=== PATIENT | male | born 1960 | race Caucasian/White ===

== ENCOUNTER 2020-01-31 08:17 | Inpatient (IN) | payer MEDICARE ==
[2020-01-31] MEDS ORDERED: ONDANSETRON 4 MG/2 ML VIAL IVP STA (08:49)
[2020-01-31] MEDS ORDERED: MORPHINE SULFATE 4 MG/ML SYRINGE IV STA (08:49)
[2020-01-31] MEDS ORDERED: SODIUM CHLORIDE 0.9% 500 ML 500 ML IV STA (08:49)
--- NOTE | 2020-01-31 08:55 | ED ---
Abdominal Pain HPI - General Chief Complaint: Abdominal Pain Stated Complaint: Abd pain Time Seen by Provider: 01/31/20 08:25 Source: patient, RN notes reviewed Mode of arrival: wheelchair Limitations: no limitations - History of Present Illness Initial Comments: This a 59-year-old male presents emergency Department with chief complaint of abdominal pain. Patient states has been going on for almost a week. Patient states he has diarrhea. Close of the day which is mostly watery denies any melena or hematochezia. Patient states isn't appears chills she complains of lower abdominal pain. He does admit that he is history of diabetes in which she has chronic renal failure though not on dialysis yet. Patient states that he drinks ensure daily because he does not have that appetite. Patient has had his appetite, weight loss complains evaluated. Patient denies any chest pain or shortness of breath. Patient denies any fevers or chills. Patient had slight nausea no vomiting - Related Data Home Medications Medication Instructions Recorded Confirmed Aspirin EC [Ecotrin Low Dose] 81 mg PO DAILY 01/31/20 01/31/20 Insulin Aspart (For Pump) [NovoLOG 0.01 unit SQ-PUMP CONTINUOUS 01/31/20 01/31/20 (For Pump)] Rosuvastatin [Crestor] 10 mg PO DAILY 01/31/20 01/31/20 Allergies Allergy/AdvReac Type Severity Reaction Status Date / Time No Known Allergies Allergy Verified 01/31/20 10:33 Review of Systems ROS Statement: Those systems with pertinent positive or pertinent negative responses have been documented in the HPI. ROS Other: All systems not noted in ROS Statement are negative. Past Medical History Past Medical History: Coronary Artery Disease (CAD), Diabetes Mellitus Additional Past Medical History / Comment(s): insulin pump stage 4 kidney disease, chronic right foot ulcer History of Any Multi-Drug Resistant Organisms: MRSA Date of last positivie culture/infection: 2014 MDRO Source:: right foot Past Surgical History: Heart Catheterization With Stent Additional Past Surgical History / Comment(s): left 2nd and third toe amputation Past Psychological History: No Psychological Hx Reported Smoking Status: Current every day smoker Past Alcohol Use History: Occasional Past Drug Use History: None Reported General Exam Limitations: no limitations General appearance: alert, in no apparent distress Head exam: Present: atraumatic, normocephalic, normal inspection Eye exam: Present: normal appearance, PERRL, EOMI. Absent: scleral icterus, conjunctival injection, periorbital swelling ENT exam: Present: normal exam, normal oropharynx, mucous membranes moist Neck exam: Present: normal inspection, full ROM. Absent: tenderness, meningismus, lymphadenopathy Respiratory exam: Present: normal lung sounds bilaterally. Absent: respiratory distress, wheezes, rales, rhonchi, stridor Cardiovascular Exam: Present: normal rhythm, tachycardia, normal heart sounds. Absent: systolic murmur, diastolic murmur, rubs, gallop, clicks GI/Abdominal exam: Present: soft, tenderness (Moderate lower), normal bowel sounds. Absent: distended, guarding, rebound, rigid Back exam: Absent: CVA tenderness (R), CVA tenderness (L) Neurological exam: Present: alert, oriented X3 Skin exam: Present: warm, dry, intact, normal color. Absent: rash Course Vital Signs 01/31/20 01/31/20 01/31/20 08:19 09:19 09:47 Temperature 98 F 97.2 F L Pulse Rate 101 H 92 62 Respiratory 18 14 22 Rate Blood Pressure 148/79 164/88 167/95 O2 Sat by Pulse 100 100 Oximetry 01/31/20 10:01 Temperature Pulse Rate 91 Respiratory 16 Rate Blood Pressure 165/85 O2 Sat by Pulse Oximetry Medical Decision Making - Medical Decision Making Case discussed with Dr. Paniagua in which patient be admitted for colitis, diverticulitis persistent diarrhea. Patient has chronic kidney disease, ([address] Patient started on antibiotics. IV fluid hydration. - Lab Data Result diagrams: 01/31/20 08:50 01/31/20 08:50 Lab Results 01/31/20 01/31/20 01/31/20 Range/Units 08:50 08:50 08:50 WBC 8.1 (3.8-10.6) k/uL RBC 3.24 L (4.30-5.90) m/uL Hgb 9.8 L (13.0-17.5) gm/dL Hct 30.9 L (39.0-53.0) % MCV 95.4 (80.0-100.0) fL MCH 30.2 (25.0-35.0) pg MCHC 31.6 (31.0-37.0) g/dL RDW 15.2 (11.5-15.5) % Plt Count 267 (150-450) k/uL Neutrophils % 76 % Lymphocytes % 16 % Monocytes % 4 % Eosinophils % 3 % Basophils % 0 % Neutrophils # 6.1 (1.3-7.7) k/uL Lymphocytes # 1.3 (1.0-4.8) k/uL Monocytes # 0.4 (0-1.0) k/uL Eosinophils # 0.2 (0-0.7) k/uL Basophils # 0.0 (0-0.2) k/uL PT 9.6 (9.0-12.0) sec INR 0.9 (<1.2) APTT 26.4 (22.0-30.0) sec Sodium 133 L (137-145) mmol/L Potassium 5.1 (3.5-5.1) mmol/L Chloride 107 (98-107) mmol/L Carbon Dioxide 20 L (22-30) mmol/L Anion Gap 6 mmol/L BUN 59 H (9-20) mg/dL Creatinine 2.13 H (0.66-1.25) mg/dL Est GFR (CKD-EPI)AfAm 38 (>60 ml/min/1.73 sqM) Est GFR (CKD-EPI)NonAf 33 (>60 ml/min/1.73 sqM) Glucose 196 H (74-99) mg/dL Plasma Lactic Acid Karlo (0.7-2.0) mmol/L Calcium 9.1 (8.4-10.2) mg/dL Total Bilirubin 0.5 (0.2-1.3) mg/dL AST 36 (17-59) U/L ALT 20 (4-49) U/L Alkaline Phosphatase 84 (38-126) U/L Total Protein 7.5 (6.3-8.2) g/dL Albumin 4.2 (3.5-5.0) g/dL Amylase 85 (30-110) U/L Lipase 74 (23-300) U/L 01/31/20 Range/Units 08:50 WBC (3.8-10.6) k/uL RBC (4.30-5.90) m/uL Hgb (13.0-17.5) gm/dL Hct (39.0-53.0) % MCV (80.0-100.0) fL MCH (25.0-35.0) pg MCHC (31.0-37.0) g/dL RDW (11.5-15.5) % Plt Count (150-450) k/uL Neutrophils % % Lymphocytes % % Monocytes % % Eosinophils % % Basophils % % Neutrophils # (1.3-7.7) k/uL Lymphocytes # (1.0-4.8) k/uL Monocytes # (0-1.0) k/uL Eosinophils # (0-0.7) k/uL Basophils # (0-0.2) k/uL PT (9.0-12.0) sec INR (<1.2) APTT (22.0-30.0) sec Sodium (137-145) mmol/L Potassium (3.5-5.1) mmol/L Chloride (98-107) mmol/L Carbon Dioxide (22-30) mmol/L Anion Gap mmol/L BUN (9-20) mg/dL Creatinine (0.66-1.25) mg/dL Est GFR (CKD-EPI)AfAm (>60 ml/min/1.73 sqM) Est GFR (CKD-EPI)NonAf (>60 ml/min/1.73 sqM) Glucose (74-99) mg/dL Plasma Lactic Acid Karlo 1.3 (0.7-2.0) mmol/L Calcium (8.4-10.2) mg/dL Total Bilirubin (0.2-1.3) mg/dL AST (17-59) U/L ALT (4-49) U/L Alkaline Phosphatase (38-126) U/L Total Protein (6.3-8.2) g/dL Albumin (3.5-5.0) g/dL Amylase (30-110) U/L Lipase (23-300) U/L Disposition Clinical Impression: Diverticulitis, Colitis, Diarrhea Disposition: ADMITTED IP TO THIS [facility] Condition: Fair Referrals: Mayo Martell MD [STAFF PHYSICIAN] - 1-2 days
[2020-01-31 09:04] LABS: Basophils % (A) 0 %; Eosinophils # (A) 0.2 k/uL (0-0.7); Eosinophils % (A) 3 %; HCT 30.9 % (39.0-53.0); HGB 9.8 gm/dL (13.0-17.5); Lymphocytes # (A) 1.3 k/uL (1.0-4.8); Lymphocytes % (A) 16 %; MCH 30.2 pg (25.0-35.0); MCHC 31.6 g/dL (31.0-37.0); MCV 95.4 fL (80.0-100.0); Mean Platelet Volume 8.1; Monocytes # (A) 0.4 k/uL (0-1.0); Monocytes % (A) 4 %; Neutrophils # (A) 6.1 k/uL (1.3-7.7); Neutrophils % (A) 76 %; Platelet Count 267 k/uL (150-450); RBC 3.24 m/uL (4.30-5.90); RDW 15.2 % (11.5-15.5); WBC 8.1 k/uL (3.8-10.6)
[2020-01-31 09:13] LABS: INR 0.9 (<1.2); Partial Thromboplastin Time 26.4 sec (22.0-30.0); Prothrombin Time 9.6 sec (9.0-12.0)
[2020-01-31 09:17] LABS: Albumin 4.2 g/dL (3.5-5.0); Calcium 9.1 mg/dL (8.4-10.2); Total Bilirubin 0.5 mg/dL (0.2-1.3); Total Protein 7.5 g/dL (6.3-8.2)
[2020-01-31 09:25] LABS: Potassium 5.1 mmol/L (3.5-5.1)
--- NOTE | 2020-01-31 09:44 | CT ---
EXAMINATION TYPE: CT abdomen pelvis wo con DATE OF EXAM: 01/31/2020 COMPARISON: None HISTORY: 59-year-old male abdominal pain, Prachi-umbilical pain CT DLP: 373.4 mGycm. Automated exposure control for dose reduction was used. TECHNIQUE: Contiguous axial scanning of the abdomen and pelvis without IV contrast. Coronal and sagit deborah reconstructions performed. FINDINGS: Heart normal size with trace anterior pericardial fluid. Three-vessel coronary artery calcifications are present. Findings interstitial changes along the subpleural regions of the posterior lung bases. No pleural ef fusion. Small hiatal hernia suggested. Noncontrast appearance of the liver, gallbladder, right adrenal gland, kidneys, spleen, and pancreas show no gross abnormal body. Limited assessment due to lack of IV contrast and limited intra-abdomina l fat. Mild diffuse thickening of the left adrenal gland without discrete nodularity. This seems to be some mesenteric and omental haziness. Moderate circumferential wall thickening sigmo id colon and rectum. There is some diverticular change in this region. Oral contrast may be extending into some of the diverticula here. High rupture at the splenic flecture, axial image 21, there may be some circumferential annular narro wing. No definite free fluid or free air seen. Mild circumferential bladder wall thickening. Prostate gland enlargement 5.1 cm wide. Bones: Degenerative changes of the hips. L1 vertebroplasty change. Disc bulges mid and lower lumbar spine. IMPRESSION: 1. Moderate nonspecific colitis involving the sigmoid colon and rectum. There is some diverticular c hange air as well. Acute diverticulitis is also a consideration. Close clinical follow-up recommended with repeat CT with oral and IV contrast if no improvement. 2. An area of annular thickening and narrowing higher up along the splenic flexure could relate to f ocal peristalsis. After successful treatment, direct visualization recommended to exclude any sites o f underlying neoplasm. 3. No definite free air or free fluid seen.
[2020-01-31] MEDS ORDERED: HYDROmorphone 0.5 MG/0.5 ML SYRINGE IVP STA (09:49)
[2020-01-31] MEDS ORDERED: diphenhydrAMINE 50 MG/ML 1 ML VIAL IVP STA (09:49)
[2020-01-31] MEDS ORDERED: METOCLOPRAMIDE 5 MG/ML 2 ML VIAL IVP STA (09:49)
[2020-01-31] MEDS: SODIUM CHLORIDE 0.9% 1,000 ML IV SCH ×2 (10:10→23:50)
[2020-01-31] MEDS ORDERED: metroNIDAZOLE-NS PMX 500 MG in SALINE 1 100ML.BAG IVPB STA (11:05)
[2020-01-31] MEDS ORDERED: LEVOFLOXACIN 750MG-D5W PMX 750 MG in DEXTROSE/WATER 1 150ML.BAG IVPB STA (11:05)
[2020-01-31] MEDS ORDERED: HYDROcodone/APAP 5-325MG 1 EACH TAB PO PRN (11:06)
[2020-01-31] MEDS ORDERED: HYDROmorphone 0.5 MG/0.5 ML SYRINGE IVP PRN (11:06)
[2020-01-31] MEDS ORDERED: NALOXONE 0.4 MG/ML 1 ML VIAL IV PRN (11:06)
[2020-01-31 12:25] LABS: Appearance,Urine Clear (Clear); Bacteria,Urine Rare /hpf; Bilirubin,Urine Negative (Negative); Blood,Urine Negative (Negative); Color,Urine Light Yellow; Glucose,Urine (UA) Trace (Negative); Hyaline Casts,Urine 1 /lpf (0-2); Ketones,Urine Negative (Negative); Leukocyte Esterase,Urine Negative (Negative); Nitrite,Urine Negative (Negative); PH, Urine 5.5 (5.0-8.0); Protein,Urine 1+ (Negative); RBC,Urine <1 /hpf (0-5); Sperm,Urine Rare /hpf; Urobilinogen,Urine <2.0 mg/dL (<2.0); WBC,Urine 1 /hpf (0-5)
[2020-01-31] MEDS ORDERED: PNEUMOCOCCAL VACC-PNEUMOVAX 23 25 MCG/0.5 ML VIAL IM ONE (12:37)
[2020-01-31] MEDS ORDERED: DICYCLOMINE 10 MG CAP PO PRN (14:15)
[2020-01-31] MEDS ORDERED: ONDANSETRON 4 MG/2 ML VIAL IVP PRN (14:17)
[2020-01-31] MEDS ORDERED: Insulin Aspart (For Pump) 100 UNIT/ML VIAL SQ-PUMP SCH (20:15)
[2020-01-31] MEDS: metroNIDAZOLE-NS PMX 500 MG in SALINE 1 100ML.BAG IVPB SCH (20:23)
[2020-01-31] MEDS: PANTOPRAZOLE 40 MG/10 ML VIAL IVP SCH (20:24)
[2020-01-31] MEDS ORDERED: INSULIN PUMP BASAL RATES 1 EACH MISC MISCELLANE PRN (20:28)
[2020-01-31] MEDS ORDERED: INSPUCOR MISCELLANE PRN (20:28)
[2020-01-31] MEDS ORDERED: INSULIN ASPART (NovoLOG) 100 UNIT/ML VIAL SQ PRN (20:28)
[2020-01-31] MEDS: INSULIN PUMP MEAL BOLUS 1 UNIT MISC MISCELLANE SCH (21:03)
--- NOTE | 2020-01-31 22:44 | P.HPIM ---
History of Present Illness H&P Date: 01/31/20 Chief Complaint: Abdominal pain, colitis, bowel obstruction, acute kidney injury with chroni 59-year-old male one of Dr. Mena patient with past medical history of coronary disease, diabetes, hypertension hyperlipidemia and chronic kidney disease who developed to have worsening abdominal discomfort and pain mostly left lower quadrant with mid lower abdominal region area along with left upper quadrant pain and discomfort on and off associated with episode of diarrhea with no acute bleed at the time. Low-grade temperature nausea without vomiting. Symptoms become much worse in the last 48 hours ended up coming to the emergency department at [facility] where was seen and evaluated surprisingly his kidney function came back slightly bit down compared to his baseline, patient computed tomography scan showed some evidence of irregularity in the mucosal of the colon along with slight abnormality consistent with possible obstruction in the splenic flexure of the colon area. Picture was quite bit abnormal patient was very tender on it at the time. Also had a picture of diverticulitis beside the active colitis which could be ischemic in origin more than inflammatory colitis. Patient was started on IV hydration and Flagyl and Levaquin was giving and will admit patient to the hospital. His white blood cell was normal but significantly low hemoglobin at the time. Urine test was negative blood culture and urine culture was still pending. Review of Systems CONSTITUTIONAL: Well-developed no acute respiratory distress. EYES: No icterus sclerae, no conjunctivitis. EARS, NOSE, MOUTH, THROAT, and FACE: No sore throat, lymphadenopathy, carotid bruits or deformity. RESPIRATORY: No SOB cough or wheezes. CARDIOVASCULAR: No CP, Palpitation, PND, Orthopnea, or angina. GASTROINTESTINAL: Positive abdominal pain with diarrhea and nausea with no vomiting significant discomfort with no hemorrhage or bleed. Bleed, no distention or masses. GENITOURINARY: No kidney stone slight decrease in kidney function. INTEGUMENT/BREAST: Negative for any muscular injury with mild osteoarthritis.. HEMATOLOGIC/LYMPHATIC: Negative for bleed or purpura. MUSCULOSKELTAL: Negative for Myalgia or arthralgia. NEURLOGICAL: No LOC, Sz or syncope, blurred vision dizziness or abnormality.. BEHAVIORAL/PSYCH: Negative. ENDOCRINE: Negative. 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 He is and lives alone. Family history: His father a 70 from aneurysm of the brain, mother at age 77 from aneurysm of the brain. Patient had 6 siblings with no major problem 2 children 1 from complication of type 2 diabetes with advanced disease. Past Medical History Past Medical History: Coronary Artery Disease (CAD), Diabetes Mellitus, Eye Disorder, Hyperlipidemia, Renal Disease Additional Past Medical History / Comment(s): IDDM type I with insulin pump, CKD stage IV, polyneuropathy, dupuytren's bilateral hands, chronic R foot ulcer, ch ronic bilateral foot pain, chronic low back pain/fracture, R eye cataract History of Any Multi-Drug Resistant Organisms: MRSA Date of last positivie culture/infection: 2014 MDRO Source:: right foot Past Surgical History: Heart Catheterization With Stent, Orthopedic Surgery Additional Past Surgical History / Comment(s): L hand fracture with pins, left 2nd and third toe amputation, colonoscopy, L cataract removal/lens implants Past Anesthesia/Blood Transfusion Reactions: No Reported Reaction Date of Last Stent Placement:: 2014 Past Psychological History: No Psychological Hx Reported Additional Psychological History / Comment(s): Pt resides alone in an apartment. He moved here from [place] last May 2019. 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 He uses no assistive device. He drives. Smoking Status: Current every day smoker Past Alcohol Use History: Occasional Additional Past Alcohol Use History / Comment(s): Pt started smoking in 1975 and is a ppd smoker. Past Drug Use History: None Reported - Past Family History Father Family Medical History: Diabetes Mellitus, Vascular Disorder Additional Family Medical History / Comment(s): Father of brain aneurysm. He had type I diabetes and it ran strongly on father's side of family Mother Family Medical History: Vascular Disorder Additional Family Medical History / Comment(s): Mother from a brain aneurysm. Medications and Allergies Home Medications Medication Instructions Recorded Confirmed Type Aspirin EC [Ecotrin Low Dose] 81 mg PO DAILY 01/31/20 01/31/20 History Insulin Aspart (For Pump) [NovoLOG 0.01 unit SQ-PUMP CONTINUOUS 01/31/20 01/31/20 History (For Pump)] Rosuvastatin [Crestor] 10 mg PO DAILY 01/31/20 01/31/20 History Allergies Allergy/AdvReac Type Severity Reaction Status Date / Time No Known Allergies Allergy Verified 01/31/20 10:33 Physical Exam Vitals: Vital Signs Temp Pulse Pulse Resp BP BP Pulse Ox 01/31/20 19:19 98.5 F 81 15 152/80 100 01/31/20 16:00 85 16 01/31/20 14:30 98.1 F 85 16 146/77 100 01/31/20 11:25 97.8 F 88 16 162/89 01/31/20 10:01 91 16 165/85 01/31/20 09:47 97.2 F L 62 22 167/95 01/31/20 09:19 92 14 164/88 100 01/31/20 08:19 98 F 101 H 18 148/79 100 Intake and Output 01/31/20 01/31/20 01/31/20 06:59 14:59 22:59 Other: Voiding Method Toilet # Voids 1 1 # Bowel Movements 1 1 Weight 56.699 kg General Appearance: Alert, cooperative, no distress, appears stated age. Neck HEENT: Supple, no lymphadenopathy, no thyroid enlargement, no carotid bruits. Lungs: Clear to auscultation without crackles or wheezes no rhonchi, no deformity. Chest Wall: Decrease expansion with deep inspiration no tenderness and no deformity was found on exam, no costochondral pain or discomfort. Heart: Regular rate and rhythm, S1, S2 normal, no murmur, rub or gallop. Back: Symmetric, no curvature, ROM normal, no CVA tenderness. Abdomen: Soft positive bowel sounds significant tenderness in the left upper quadrant and left lower quadrant area with midabdominal region tenderness with no rebound or rigidity not been able to feel mass and patient does not have any sign of ascites. Extremities: Extremities normal, atraumatic, no cyanosis or edema. Right foot lateral aspect has small chronic ulcerated area on callus. Pulses: 2+ and symmetric. Skin: Skin color, texture, tugor normal, no rashes or lesions. Neurologic: Alert oriented x3 cranial nerves II through XII intact, no motor deficit, no abnormal balance or gait. Results CBC & Chem 7: 01/31/20 08:50 01/31/20 08:50 Labs: Abnormal Lab Results - Last 24 Hours (Table) 01/31/20 01/31/20 01/31/20 Range/Units 08:50 08:50 12:00 RBC 3.24 L (4.30-5.90) m/uL Hgb 9.8 L (13.0-17.5) gm/dL Hct 30.9 L (39.0-53.0) % Sodium 133 L (137-145) mmol/L Carbon Dioxide 20 L (22-30) mmol/L BUN 59 H (9-20) mg/dL Creatinine 2.13 H (0.66-1.25) mg/dL Glucose 196 H (74-99) mg/dL Urine Protein 1+ H (Negative) Urine Glucose (UA) Trace H (Negative) Urine Bacteria Rare H (None) /hpf Thrombosis Risk Factor Assmnt - DVT/VTE Prophylaxis DVT/VTE Prophylaxis: Pharmacologic Prophylaxis ordered, Mechanical Prophylaxis ordered - Choose All That Apply Each Factor Represents 1 point: Age 41-60 years Thrombosis Risk Factor Assessment Total Risk Factor Score: 1 Thrombosis Risk Factor Assessment Level: Low Risk Assessment and Plan Assessment: 1 severe acute abdominal pain: Combination of possible obstruction, divert iculitis and colitis along with possible obstruction as a transitional area in the splenic flexure. Patient will be hospitalized treated for colitis keep watching for any infectious process will consult gastroenterology and might need to consult with of general surgeon for possible need for intervention if abnormality consistent with obstruction found. Apparently last colonoscopy patient had was over 4 years ago with a current finding patient might benefit from doing another colonoscopy when he is more stable. 2 acute diverticulitis: Patient will be on Flagyl and Levaquin for now. 3 acute colitis: Not a clear etiology could be ischemic colitis versus infectious colitis, no sign of Crohn or ulcerative colitis at this point and with his history of atherosclerotic heart disease and coronary disease patient had higher on the possibility for ischemic colitis surprisingly no bleed so far. For possible bowel obstruction: Most likely at the splenic flexure on the colon area not a clear etiology as well patient might have a possibility for malignancy further investigation including colonoscopy might be needed in the next few weeks. 5 type 2 diabetes: On insulin pump continue insulin continue Accu-Chek with sliding scales coverage. 6 atherosclerotic heart disease with chronic: Patient had post angioplasty and stent placement has been seeing cardiology down at [place] and no chest pain or angina at this point. 7 hyperlipidemia: Remain on statin resume medication. 8 chronic kidney disease: Stage III was slightly but worsening symptom with acute kidney injury patient be seen nephrology at this point. 9 chronic small nonnecrotic ulcer in the lateral aspect of the right foot from chronic callus, patient might benefit from seen podiatry debridement and topical care. 10 chronic anemia: No need for transfusion iron supplement to be beneficial. 11 GI prophylaxis: Patient will be on pantoprazole twice a day IV. 12 DVT prophylaxis: Knee-high RUTHANN hose and Venodyne boots no heparin at this point. CODE STATUS: Full code. Admit patient to the hospital today and patient service for more than 2 nights.
[2020-02-01 00:48] LABS: Glucose,Whole Blood 50 mg/dL (75-99)
[2020-02-01 01:03] LABS: Glucose,Whole Blood 53 mg/dL (75-99)
[2020-02-01 01:28] LABS: Glucose,Whole Blood 112 mg/dL (75-99)
[2020-02-01] MEDS: metroNIDAZOLE-NS PMX 500 MG in SALINE 1 100ML.BAG IVPB SCH ×2 (01:32→08:01)
--- NOTE | 2020-02-01 06:38 | P.CONS ---
History of Present Illness - Reason for Consult Consult date: 02/01/20 Colitis Requesting physician: Mayo Bedoya - Chief Complaint Abdominal pain, diarrhea - History of Present Illness 59-year-old male with a medical history significant for coronary artery disease, diabetes mellitus insulin-dependent, hypertension, hyperlipidemia and chronic kidney disease who presented to the hospital with complaints of abdominal pain and diarrhea. The patient reports symptoms which have been present for the past 3 days. He describes multiple episodes of loose nonbloody stool, with frequency of every 30 minutes at its worse. The patient also reports associated abdominal pain. He describes sharp crampy severe abdominal pain. Worse in the lower ab domen and on the left side of his abdomen. No prior episodes of similar complaints. The patient denies any associated fevers, chills or vomiting but did have nausea with the episode. No sick contacts. He believes his last colonoscopy was approximately 5-7 years ago at [facility] and normal per his recollection. The patient had computed tomography scan of the abdomen on presentation with findings of wall thickening of the sigmoid colon and rectum with evidence of diverticular disease as well as some focal thickening at the splenic flexure of unknown etiology. Laboratory evaluation significant for WBC 8.1, hemoglobin 9.8, to the count 267,000, total bilirubin 0.5, alkaline phosphatase 84, AST 36 and ALP 20 with an INR 0.9. Review of Systems REVIEW OF SYSTEMS: CONSTITUTIONAL: Denies any fevers, chills, weight change or fatigue. CARDIOVASCULAR: Denies any chest pain, palpitations high or low blood pressures RESPIRATORY: Denies any shortness of breath, hemoptysis or cough. GENITOURINARY: No dysuria or hematuria. MUSCULOSKELETAL: No weakness reported. SKIN: Denies any new rashes or lesions, jaundice or pallor. PSYCHIATRIC: Denies any depression or anxiety. NEUROLOGY: Denies headache, denies any new focal deficits. EARS/NOSE/THROAT: No recent hearing change, congestion, nasal discharge or sore throat. EYES: No pain in eyes, discharge or change in vision. GASTROINTESTINAL: As per HPI. Past Medical History Past Medical History: Coronary Artery Disease (CAD), Diabetes Mellitus, Eye Disorder, Hyperlipidemia, Renal Disease Additional Past Medical History / Comment(s): IDDM type I with insulin pump, CKD stage IV, polyneuropathy, dupuytren's bilateral hands, chronic R foot ulcer, chronic bilateral foot pain, chronic low back pain/fracture, R eye cataract History of Any Multi-Drug Resistant Organisms: MRSA Year Discovered:: 2014 MDRO Source:: right foot Past Surgical History: Heart Catheterization With Stent, Orthopedic Surgery Additional Past Surgical History / Comment(s): L hand fracture with pins, left 2nd and third toe amputation, colonoscopy, L cataract removal/lens implants Past Anesthesia/Blood Transfusion Reactions: No Reported Reaction Date of Last Stent Placement:: 2014 Past Psychological History: No Psychological Hx Reported Additional Psychological History / Comment(s): Pt resides alone in an apartment. He moved here from [place] last May 2019. 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 He uses no assistive device. He drives. Smoking Status: Current every day smoker Past Alcohol Use History: Occasional Additional Past Alcohol Use History / Comment(s): Pt started smoking in 1975 and is a ppd smoker. Past Drug Use History: None Reported - Past Family History Father Family Medical History: Diabetes Mellitus, Vascular Disorder Additional Family Medical History / Comment(s): Father of brain aneurysm. He had type I diabetes and it ran strongly on father's side of family Mother Family Medical History: Vascular Disorder Additional Family Medical History / Comment(s): Mother from a brain aneurysm. Medications and Allergies Home Medications Medication Instructions Recorded Confirmed Type Aspirin EC [Ecotrin Low Dose] 81 mg PO DAILY 01/31/20 01/31/20 History Insulin Aspart (For Pump) [NovoLOG 0.01 unit SQ-PUMP CONTINUOUS 01/31/20 01/31/20 History (For Pump)] Rosuvastatin [Crestor] 10 mg PO DAILY 01/31/20 01/31/20 History Allergies Allergy/AdvReac Type Severity Reaction Status Date / Time No Known Allergies Allergy Verified 01/31/20 10:33 Physical Exam Vitals: Vital Signs Temp Pulse Resp BP Pulse Ox 01/31/20 11:25 97.8 F 88 16 162/89 01/31/20 10:01 91 16 165/85 01/31/20 09:47 97.2 F L 62 22 167/95 01/31/20 09:19 92 14 164/88 100 01/31/20 08:19 98 F 101 H 18 148/79 100 Intake and Output 01/30/20 01/31/20 01/31/20 22:59 06:59 14:59 Other: Weight 56.699 kg On physical examination, patient appears comfortable in no apparent distress. HEAD: Normocephalic, atraumatic. EYES: No scleral icterus. No conjunctival injection. MOUTH: No lesions, tongue midline. NECK: Trachea midline, no gross abnormalities. CHEST: Clear to auscultation with no wheezing or rhonchi appreciated. HEART: Regular rate and rhythm. ABDOMEN: Soft, mildly tender to palpation worse in the left lower abdomen. Bowel sounds are positive. No organomegaly. No guarding or rigidity. EXTREMITIES: No pedal edema. SKIN: No rashes, no jaundice. NEUROLOGIC: Alert and oriented x3. No focal deficits. Results CBC & Chem 7: 01/31/20 08:50 01/31/20 08:50 Labs: Abnormal Lab Results - Last 24 Hours (Table) 01/31/20 01/31/20 01/31/20 Range/Units 08:50 08:50 12:00 RBC 3.24 L (4.30-5.90) m/uL Hgb 9.8 L (13.0-17.5) gm/dL Hct 30.9 L (39.0-53.0) % Sodium 133 L (137-145) mmol/L Carbon Dioxide 20 L (22-30) mmol/L BUN 59 H (9-20) mg/dL Creatinine 2.13 H (0.66-1.25) mg/dL Glucose 196 H (74-99) mg/dL Urine Protein 1+ H (Negative) Urine Glucose (UA) Trace H (Negative) Urine Bacteria Rare H (None) /hpf CT scan - abdomen: report reviewed (omputed tomography scan of the abdomen on presentation with findings of wall thickening of the sigmoid colon and rectum with evidence of diverticular disease as well as some focal thickening at the splenic flexure of unknown etiology.) Assessment and Plan (1) Colitis Narrative/Plan: 59-year-old male with multiple medical comorbidities including insulin-dependent diabetes mellitus who presented with complaints of nausea, severe lower abdom inal pain and diarrhea of unknown etiology. Symptoms present over the past 3-4 days prior to admission. Denies any fevers, chills, sick contacts, or unusual foods. Patient was having multiple nonbloody bowel movements daily with associated sharp, cramping lower abdominal pain. Computed tomography scan on presentation showed focal colitis of the sigmoid and rectum with an incidental area of narrowing at the splenic flexure which may be related to peristalsis as well as diverticular disease. Last colonoscopy approximately 5-7 years ago at [facility] per his recollection. Denies any chronicity of symptoms. No family history of inflammatory bowel disease or colon cancer. Unknown etiology, suspicion is for possible ischemic versus infectious colitis with inflammatory process less likely or other etiology. Current Visit: Yes Status: Acute Code(s): K52.9 - NONINFECTIVE GASTROENTERITIS AND COLITIS, UNSPECIFIED SNOMED Code(s): 64733880 (2) Abdominal pain Current Visit: Yes Status: Acute Code(s): R10.9 - UNSPECIFIED ABDOMINAL PAIN SNOMED Code(s): 97340038 (3) Diarrhea Current Visit: Yes Status: Acute Code(s): R19.7 - DIARRHEA, UNSPECIFIED SNOMED Code(s): 13076238 Plan: Supportive care Clear liquid diet Advance to low fiber/low residual consistent carbohydrate diet as tolerated Antibiotic therapy with Levaquin and Flagyl initiated Bentyl added for abdominal cramping and pain Continue to monitor clinically Discussion with the patient we will need for colonoscopy in 4-6 weeks for further evaluation Thank you for allowing us to participate in the care of the patient we will continue to follow
[2020-02-01 06:56] LABS: Glucose,Whole Blood 133 mg/dL (75-99)
[2020-02-01] MEDS: INSULIN PUMP MEAL BOLUS 1 UNIT MISC MISCELLANE SCH (08:01)
[2020-02-01] MEDS: PANTOPRAZOLE 40 MG/10 ML VIAL IVP SCH (08:01)
[2020-02-01 08:12] VITALS: BP 151/74; PULSE 81; RESP 16; TEMP 98.3
[2020-02-01] MEDS ORDERED: ASPIRIN 81 MG PO SCH (09:00)
[2020-02-01] MEDS ORDERED: ATORVASTATIN 20 MG TAB PO SCH (09:00)
[2020-02-01 10:23] LABS: Basophils % (A) 0 %; Eosinophils # (A) 0.2 k/uL (0-0.7); Eosinophils % (A) 4 %; HCT 29.8 % (39.0-53.0); HGB 9.4 gm/dL (13.0-17.5); Lymphocytes # (A) 1.7 k/uL (1.0-4.8); Lymphocytes % (A) 29 %; MCH 30.4 pg (25.0-35.0); MCHC 31.5 g/dL (31.0-37.0); MCV 96.5 fL (80.0-100.0); Mean Platelet Volume 7.8; Monocytes # (A) 0.4 k/uL (0-1.0); Monocytes % (A) 6 %; Neutrophils # (A) 3.3 k/uL (1.3-7.7); Neutrophils % (A) 57 %; Platelet Count 277 k/uL (150-450); RBC 3.09 m/uL (4.30-5.90); RDW 15.4 % (11.5-15.5); WBC 5.8 k/uL (3.8-10.6)
[2020-02-01 10:53] LABS: Albumin 3.9 g/dL (3.5-5.0); Calcium 9.1 mg/dL (8.4-10.2); Total Bilirubin 0.4 mg/dL (0.2-1.3)
[2020-02-01 11:00] LABS: Potassium 4.8 mmol/L (3.5-5.1)
[2020-02-01] MEDS ORDERED: LEVOFLOXACIN 750MG-D5W PMX 750 MG in DEXTROSE/WATER 1 150ML.BAG IVPB SCH (11:00)
--- NOTE | 2020-02-01 13:02 | CONS ---
CONSULTATION REASON FOR CONSULT: Renal failure. HISTORY OF PRESENT ILLNESS: Patient is a 59-year-old male who was admitted to the hospital with complaints of abdominal pain. The patient denied any fever. He had nausea as well. CAT scan showed evidence of diverticulitis. The patient has been maintained on antibiotics. He states he is feeling better and wants to go home. Patient denies any prior history of kidney diseases. Serum creatinine yesterday was 2.1 mg/dL. We do not have any prior labs available for comparison. Patient denied use of any nonsteroidal anti-inflammatory agents at home. And he was not on any ALLISON inhibitors. Blood pressure has not been low. PAST MEDICAL HISTORY: Coronary artery disease, type 1 diabetes, hyperlipidemia, CKD as mentioned in his past medical history, however, patient is not aware, chronic right foot ulcer, cataracts. PAST SURGICAL HISTORY: Cardiac catheterization, coronary stent placement, left hand fracture with pins, left second and third toe amputation, colonoscopy, cataract surgery. SOCIAL HISTORY: Positive for smoking, no history of drug abuse or alcohol abuse. MEDICATIONS: At home prior to admission included aspirin, insulin, Crestor. ALLERGIES: None. REVIEW OF SYSTEMS: As per HPI. Other systems negative. PHYSICAL EXAMINATION: Patient is comfortable, awake, alert, oriented x3, not in any acute distress. Blood pressure is 151/74, heart rate 81 per minute, patient is afebrile. Examination of the heart S1, S2. Examination of lungs, bilateral breath sounds are heard. Abdomen is soft, nontender. Examination of the lower extremities shows no evidence of edema. TRANSMISSION OPERATOR exam grossly intact. LABS: Show sodium 133 from yesterday, potassium 5.1, chloride 107, BUN 59, creatinine 2.13, hemoglobin 9.8 g/dL UA shows 1+ protein, glucose trace, no blood is seen. CAT scan of the abdomen shows no abnormalities with the kidneys. Nonspecific colitis was seen in the sigmoid, both colon and rectum. ASSESSMENT: 1. Acute kidney injury, mostly prerenal. Patient is maintained on IV fluids. Repeat labs today. 2. Rule out chronic kidney disease. No previous labs available for comparison. Patient denies any history of kidney disease. He does have 1+ protein on his urinalysis. This will need to be repeated down the road. 3. Anemia, no active bleeding noted. 4. Diverticulitis, sigmoid colon and rectum noted on the CT scan, maintained on antibiotics and improving. PLAN: Check labs today. The patient can be discharged today as long as renal function is not worse, but he will need followup as outpatient. Thank you for this consultation. Will continue to follow the patient with you during his hospitalization. JACOB / REGINA: [id number] /
--- NOTE | 2020-02-01 13:45 | P.DS ---
Providers Date of admission: 01/31/20 11:10 Expected date of discharge: 02/01/20 Attending physician: Mayo Bedoya Consults: 01/31/20 10:23 Consult Physician Urgent Consulting Provider: Vasiliy Black Consult Reason/Comments: Colitis/diverticulitis, needs colonoscopy Do you want consulting provider notified?: Yes Consult Physician Urgent Consulting Provider: Sandhya Florez Consult Reason/Comments: Renal insufficiency Do you want consulting provider notified?: Yes Primary care physician: Lawrence Roach MD Hospital Course: 59-year-old male one of Dr. Mena patient with past medical history of coronary disease, diabetes, hypertension hyperlipidemia and chronic kidney disease who developed to have worsening abdominal discomfort and pain mostly left lower quadrant with mid lower abdominal region area along with left upper quadrant pain and discomfort on and off associated with episode of diarrhea with no acute bleed at the time. Low-grade temperature nausea without vomiting. Symptoms become much worse in the last 48 hours ended up coming to the emergency department at [facility] where was seen and evaluated surprisingly his kidney function came back slightly bit down compared to his baseline, patient computed tomography scan showed some evidence of irregularity in the mucosal of the colon along with slight abnormality consistent with possible obstruction in the splenic flexure of the colon area. Picture was quite bit abnormal patient was very tender on it at the time. Also had a picture of diverticulitis beside the active colitis which could be ischemic in origin more than inflammatory colitis. Patient was started on IV hydration and Flagyl and Levaquin was giving and will admit patient to the hospital. His white blood cell was normal but significantly low hemoglobin at the time. Urine test was negative blood culture and urine culture was still pending. 01/31: Patient states that his abdominal pain is much improved, less tenderness, no diarrhea. Patient was seen yesterday by GI and diet of low fiber to be advanced as tolerated, continue antibiotics and Bentyl was added. Plan will be for colonoscopy in 4-6 weeks as an outpatient. Repeat lab work reveals BUN 44 and creatinine 1.81, hemoglobin 9.4. Blood sugars are running between 93 and 133. Patient was also seen by Dr. Florez and has been cleared for discharge with plan for follow-up as an outpatient. Patient will be discharged home today in stable condition. Discharge diagnoses 1 severe acute abdominal pain due to acute diverticulitis and colitis. 2 acute diverticulitis. 3 acute colitis. 4 possible bowel obstruction: Most likely at the splenic flexure, ruled out. 5 diabetes mellitus type 1 on insulin pump. 6 atherosclerotic heart disease with stent placement at [place]. 7 hyperlipidemia 8 acute kidney injury and chronic kidney disease: Stage III 9 chronic small nonnecrotic ulcer in the lateral aspect of the right foot from chronic callus 10 anemia of chronic disease Discharge plan: Home Impression and plan of care have been directed as dictated by the signing physician. Cecille Marcum nurse practitioner acting as scribe for signing physician. Patient Condition at Discharge: Good Plan - Discharge Summary New Discharge Prescriptions: New Dicyclomine [Bentyl] 10 mg PO TID PRN #90 cap PRN Reason: Dyspepsia metroNIDAZOLE [Flagyl] 500 mg PO Q8HR #21 tab Levofloxacin [Levaquin] 250 mg PO DAILY 7 Days #7 tab Continue Rosuvastatin [Crestor] 10 mg PO DAILY Insulin Aspart (For Pump) [NovoLOG (For Pump)] 0.01 unit SQ-PUMP CONTINUOUS Aspirin EC [Ecotrin Low Dose] 81 mg PO DAILY Discharge Medication List Aspirin EC [Ecotrin Low Dose] 81 mg PO DAILY 01/31/20 [History] Insulin Aspart (For Pump) [NovoLOG (For Pump)] 0.01 unit SQ-PUMP CONTINUOUS 01/31/20 [History] Rosuvastatin [Crestor] 10 mg PO DAILY 01/31/20 [History] Dicyclomine [Bentyl] 10 mg PO TID PRN #90 cap 02/01/20 [Rx] Levofloxacin [Levaquin] 250 mg PO DAILY 7 Days #7 tab 02/01/20 [Rx] metroNIDAZOLE [Flagyl] 500 mg PO Q8HR #21 tab 02/01/20 [Rx] Follow up Appointment(s)/Referral(s): Cheryl Roach MD [Medical Doctor] - 02/06/20 3:00 pm Vasiliy Black MD [STAFF PHYSICIAN] - 02/14/20 10:00 am (f/u colitis/diverticulitis with meli kauffman traffic enumerator please arrive 15 min early and bring license, insurance info, and wear a face mask, recommend colonosocopy in 4-6 weeks) Patient Instructions/Handouts: Diverticulitis (DC) Discharge Disposition: HOME SELF-CARE
== END 2020-02-01 12:07 | disposition home or self-care (01) | DRG 391 ==
LOC: EC 08:17 → 4SSUR 11:10
PROVIDERS: ADMIT Internal Medicine Geriatric Medicine; ATTEND Internal Medicine Geriatric Medicine
DX: K57.32 Diverticulitis of large intestine without perforation or abscess without bleeding (principal); K55.039 Acute (reversible) ischemia of large intestine, extent unspecified; A09 Infectious gastroenteritis and colitis, unspecified; N17.9 Acute kidney failure, unspecified; N18.4 Chronic kidney disease, stage 4 (severe); E10.42 Type 1 diabetes mellitus with diabetic polyneuropathy; E10.621 Type 1 diabetes mellitus with foot ulcer; D63.1 Anemia in chronic kidney disease; L97.519 Non-pressure chronic ulcer of other part of right foot with unspecified severity; E10.22 Type 1 diabetes mellitus with diabetic chronic kidney disease; Z11.59 Encounter for screening for other viral diseases; E78.5 Hyperlipidemia, unspecified; F17.210 Nicotine dependence, cigarettes, uncomplicated; I12.9 Hypertensive chronic kidney disease with stage 1 through stage 4 chronic kidney disease, or unspecified chronic kidney disease; I25.10 Atherosclerotic heart disease of native coronary artery without angina pectoris; G89.29 Other chronic pain; H26.9 Unspecified cataract; M54.5 Low back pain; M79.671 Pain in right foot; M79.672 Pain in left foot; M72.0 Palmar fascial fibromatosis [Dupuytren]; Z79.4 Long term (current) use of insulin; Z79.82 Long term (current) use of aspirin; Z79.899 Other long term (current) drug therapy; Z96.41 Presence of insulin pump (external) (internal); Z98.42 Cataract extraction status, left eye; Z96.1 Presence of intraocular lens; Z95.5 Presence of coronary angioplasty implant and graft; Z86.14 Personal history of Methicillin resistant Staphylococcus aureus infection; Z83.3 Family history of diabetes mellitus; Z82.49 Family history of ischemic heart disease and other diseases of the circulatory system
CPT/HCPCS: 36415; 74176; 80053; 81001; 82150; 83605; 83630; 83690; 83993; 85025; 85610; 85730; 87045; 87046; 90732; 96374; 96375; 99285

== ENCOUNTER 2020-08-13 16:18 | Inpatient (IN) | payer MEDICARE, OTHER ==
[2020-08-13 16:29] LABS: Glucose,Whole Blood 287 mg/dL (75-99)
[2020-08-13 16:56] LABS: Basophils % (A) 0 %; Eosinophils # (A) 0.1 k/uL (0-0.7); Eosinophils % (A) 1 %; HCT 30.2 % (39.0-53.0); HGB 10.6 gm/dL (13.0-17.5); Lymphocytes # (A) 1.1 k/uL (1.0-4.8); Lymphocytes % (A) 16 %; MCH 31.9 pg (25.0-35.0); MCHC 34.9 g/dL (31.0-37.0); MCV 91.3 fL (80.0-100.0); Mean Platelet Volume 7.5; Monocytes # (A) 0.3 k/uL (0-1.0); Monocytes % (A) 5 %; Neutrophils # (A) 5.4 k/uL (1.3-7.7); Neutrophils % (A) 77 %; Platelet Count 295 k/uL (150-450); RBC 3.31 m/uL (4.30-5.90); RDW 14.3 % (11.5-15.5)
--- NOTE | 2020-08-13 17:09 | XR ---
EXAMINATION TYPE: XR chest 1V portable DATE OF EXAM: 08/13/2020 COMPARISON: NONE HISTORY: Body aches TECHNIQUE: Single view FINDINGS: There is no heart failure nor confluent pneumonic infiltrate. Costophrenic angles are clear . There are chest leads. There are no hilar masses. IMPRESSION: No active cardiopulmonary disease. Normal heart.
[2020-08-13 17:12] LABS: INR 0.9 (<1.2); Partial Thromboplastin Time 23.2 sec (22.0-30.0); Prothrombin Time 9.4 sec (9.0-12.0)
[2020-08-13 17:14] LABS: AST 53 U/L (17-59); African American GFR (CKD) 24 (>60 ml/min/1.73 sqM); Albumin 4.9 g/dL (3.5-5.0); Alkaline Phosphatase 125 U/L (38-126); Anion Gap 14 mmol/L; Blood Urea Nitrogen 67 mg/dL (9-20); C Reactive Protein <5.0 mg/L (<10.0); Calcium 10.4 mg/dL (8.4-10.2); Carbon Dioxide 19 mmol/L (22-30); Chloride 104 mmol/L (98-107); Glucose 248 mg/dL (74-99); LDH 748 U/L (313-618); Magnesium 2.2 mg/dL (1.6-2.3); Non-African American GFR(CKD) 20 (>60 ml/min/1.73 sqM); Potassium 3.9 mmol/L (3.5-5.1); Sodium 137 mmol/L (137-145); Total Bilirubin 0.4 mg/dL (0.2-1.3); Total Protein 8.2 g/dL (6.3-8.2)
[2020-08-13 17:18] LABS: ALT 32 U/L (4-49)
[2020-08-13] MEDS ORDERED: HEPARIN SODIUM,PORCINE 5,000 UNIT/ML 1 ML VIAL IV PRN (17:38)
[2020-08-13] MEDS ORDERED: HEPARIN SODIUM,PORCINE 5,000 UNIT/ML 1 ML VIAL IV ONE (17:38)
[2020-08-13] MEDS ORDERED: ASPIRIN 81 MG PO STA (17:47)
[2020-08-13] MEDS ORDERED: SODIUM CHLORIDE 0.9% 1,000 ML IV STA (17:47)
[2020-08-13 17:49] LABS: Appearance,Urine Clear (Clear); Bacteria,Urine Occasional /hpf; Bilirubin,Urine Negative (Negative); Blood,Urine Small (Negative); Color,Urine Light Yellow; Glucose,Urine (UA) 4+ (Negative); Hyaline Casts,Urine 1 /lpf (0-2); Ketones,Urine Negative (Negative); Leukocyte Esterase,Urine Negative (Negative); Mucus,Urine Rare /hpf; Nitrite,Urine Negative (Negative); PH, Urine 5.5 (5.0-8.0); Protein,Urine 2+ (Negative); RBC,Urine 2 /hpf (0-5); Specific Gravity,Urine 1.012 (1.001-1.035); Sperm,Urine Rare /hpf; Urobilinogen,Urine <2.0 mg/dL (<2.0); WBC,Urine 5 /hpf (0-5)
--- NOTE | 2020-08-13 17:56 | ED ---
General Adult HPI - General Source: RN notes reviewed <Yayo William - Last Filed: 08/13/20 19:23> - General Source: patient Mode of arrival: ambulatory Limitations: no limitations <Nataly Garrison - Last Filed: 08/16/20 20:54> - General Chief complaint: Recheck/Abnormal Lab/Rx Stated complaint: Body Pain Time Seen by Provider: 08/13/20 16:26 - History of Present Illness Initial comments: 59-year-old male with a past medical history of CAD with cardiac cath and stent in 2004, diabetes mellitus, hyperlipidemia, CK D stage IV, IDDM type I presents to the emergency department for body aches. Patient states that when he woke up he had body aches all over. States his arms and legs were painful. States he felt a little bit short of breath. He denies any chest pain. Denies fevers. Does admit to slight cough. Denies congestion or sore throat. Denies vomiting or diarrhea but did have some nausea earlier today. Patient is concerned for CO VID. (Yayo William) - Related Data Home Medications Medication Instructions Recorded Confirmed Aspirin EC [Ecotrin Low Dose] 81 mg PO DAILY 01/31/20 08/13/20 Insulin Aspart (For Pump) [NovoLOG 0.01 unit SQ-PUMP CONTINUOUS 01/31/2007/17 (For Pump)] Rosuvastatin [Crestor] 10 mg PO DAILY 01/31/20 08/13/20 Enalapril Maleate [Vasotec] 2.5 mg PO DAILY 08/13/20 08/13/20 Ferrous Sulfate [Iron (65 MG 325 mg PO Q48H 08/13/20 08/13/20 Elemental)] Vitamin D3 (Unknown Strength) 1 tab PO DAILY 08/13/20 08/13/20 Allergies Allergy/AdvReac Type Severity Reaction Status Date / Time No Known Allergies Allergy Verified 08/13/20 19:10 Review of Systems ROS Other: All systems not noted in ROS Statement are negative. <Yayo William - Last Filed: 08/13/20 19:23> ROS Other: All systems not noted in ROS Statement are negative. <Nataly Garrison - Last Filed: 08/16/20 20:54> ROS Statement: Those systems with pertinent positive or pertinent negative responses have been documented in the HPI. Past Medical History Past Medical History: Coronary Artery Disease (CAD), Diabetes Mellitus, Eye Disorder, Hyperlipidemia, Renal Disease Additional Past Medical History / Comment(s): IDDM type I with insulin pump, CKD stage IV, polyneuropathy, dupuytren's bilateral hands, chronic R foot ulcer, chronic bilateral foot pain, chronic low back pain/fracture, R eye cataract History of Any Multi-Drug Resistant Organisms: MRSA Date of last positivie culture/infection: 2014 MDRO Source:: right foot Past Surgical History: Heart Catheterization With Stent, Orthopedic Surgery Additional Past Surgical History / Comment(s): L hand fracture with pins, 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 He had type I diabetes and it ran strongly on father's side of family Mother Family Medical History: Vascular Disorder Additional Family Medical History / Comment(s): Mother from a brain aneurysm. <Nataly Garrison A - Last Filed: 08/16/20 20:54> General Exam General appearance: alert, in no apparent distress Head exam: Present: atraumatic, normocephalic, normal inspection Eye exam: Present: normal appearance, PERRL, EOMI. Absent: scleral icterus, conjunctival injection, periorbital swelling ENT exam: Present: normal exam, mucous membranes moist Neck exam: Present: normal inspection, full ROM. Absent: tenderness, meningismus, lymphadenopathy Respiratory exam: Present: normal lung sounds bilaterally. Absent: respiratory distress, wheezes, rales, rhonchi, stridor Cardiovascular Exam: Present: regular rate, normal rhythm, normal heart sounds. Absent: systolic murmur, diastolic murmur, rubs, gallop, clicks GI/Abdominal exam: Present: soft, normal bowel sounds. Absent: distended, tenderness, guarding, rebound, rigid Neurological exam: Present: alert <Yayo William - Last Filed: 08/13/20 19:23> Limitations: no limitations <Nataly Garrison - Last Filed: 08/16/20 20:54> Course <Nataly Garrison - Last Filed: 08/16/20 20:54> Vital Signs 08/13/20 08/13/20 16:20 18:16 Temperature 98.8 F 98.5 F Pulse Rate 92 93 Respiratory 18 18 Rate Blood Pressure 144/70 151/72 O2 Sat by Pulse 100 100 Oximetry - Reevaluation(s) Reevaluation #1: 08/13/20 17:[address] Rivera. Recommends medical management. Due to patients CHARLES, unsure if immediate cath would be more detrimental to the patient's care (Nataly Garrison) Reevaluation #2: Spoke with Dr. Rivera who presented to ED to evaluated patient. Decided he would like to take patient to lab support technician as bedside echo was performed and is concerning. woodworking shop laborer will be activated at this time 08/13/20 18:55 (Nataly Garrison) EKG Findings - EKG Comments: EKG Findings:: 1633: Normal sinus rhythm, ventricular rate 93, MT interval 136, QTc 450, ST depression and T-wave inversions V2 through V6. 1740: Normal sinus rhythm, ventricular rate 95, appeared tubal 1:30, QTc 449, diffuse ST depression and T-wave inversions through V2 V6. Previous EKGs to compare. <Yayo William - Last Filed: 08/13/20 19:23> Procedures - [facility] Protocol (Time Out) Nurse: Robson Angel <Nataly Garrison - Last Filed: 08/16/20 20:54> Medical Decision Making - Lab Data Result diagrams: 08/13/20 16:44 08/13/20 16:44 <Yayo William - Last Filed: 08/13/20 19:23> - Lab Data Result diagrams: 08/16/20 04:51 08/16/20 04:51 <Nataly Garrison - Last Filed: 08/16/20 20:54> - Medical Decision Making Vitals are stable. Patient is afebrile. He is 100% on room air. Initial EKG revealed diffuse ST depression and inversion through V2 through V6. No evidence of ST elevation. At this time cardiac workup was initiated as well as Covid workup. CBC unremarkable. CMP does show evidence of stage IV kidney disease however possible slight AK I given creatinine of 3 which is above normal for him. Lactic acid is elevated at 4.4 of undetermined significance. No known evidence of infection at this time and white count is normal. Troponin is elevated at 7.3. Low-dose heparin was initiated as well as aspirin. D-dimer slightly elevated heart patient cannot have a computed tomography scan. Will likely need a VQ scan. Urinalysis does not show any evidence of infection. COVID is not detected. Chest x-ray shows no acute process. Dr. Garrison did speak with Dr. Rivera who reviewed EKGs. Given patient's creatinine and lack of ACS symptoms he does not want to intervene at this time however will likely take him in the morning. Dr. Rivera did echo at bedside and wants to take patient to lab support technician. (Yayo William) - Lab Data Lab Results 08/13/20 08/13/20 08/13/20 Range/Units 16:28 16:44 16:44 WBC 7.0 (3.8-10.6) k/uL RBC 3.31 L (4.30-5.90) m/uL Hgb 10.6 L (13.0-17.5) gm/dL Hct 30.2 L (39.0-53.0) % MCV 91.3 (80.0-100.0) fL MCH 31.9 (25.0-35.0) pg MCHC 34.9 (31.0-37.0) g/dL RDW 14.3 (11.5-15.5) % Plt Count 295 (150-450) k/uL MPV 7.5 Neutrophils % 77 % Lymphocytes % 16 % Monocytes % 5 % Eosinophils % 1 % Basophils % 0 % Neutrophils # 5.4 (1.3-7.7) k/uL Lymphocytes # 1.1 (1.0-4.8) k/uL Monocytes # 0.3 (0-1.0) k/uL Eosinophils # 0.1 (0-0.7) k/uL Basophils # 0.0 (0-0.2) k/uL PT 9.4 (9.0-12.0) sec INR 0.9 (<1.2) APTT 23.2 (22.0-30.0) sec D-Dimer (<0.60) mg/L FEU Sodium (137-145) mmol/L Potassium (3.5-5.1) mmol/L Chloride (98-107) mmol/L Carbon Dioxide (22-30) mmol/L Anion Gap mmol/L BUN (9-20) mg/dL Creatinine (0.66-1.25) mg/dL Est GFR (CKD-EPI)AfAm (>60 ml/min/1.73 sqM) Est GFR (CKD-EPI)NonAf (>60 ml/min/1.73 sqM) Glucose (74-99) mg/dL POC Glucose (mg/dL) 287 H (75-99) mg/dL POC Glu Crew Chief ID Robson Angel Lactic Ac Sepsis Rflx Plasma Lactic Acid Karlo (0.7-2.0) mmol/L Calcium (8.4-10.2) mg/dL Magnesium (1.6-2.3) mg/dL Ferritin (22.0-322.0) ng/mL Total Bilirubin (0.2-1.3) mg/dL AST (17-59) U/L ALT (4-49) U/L Alkaline Phosphatase (38-126) U/L Lactate Dehydrogenase (313-618) U/L Troponin I (0.000-0.034) ng/mL C-Reactive Protein (<10.0) mg/L NT-Pro-B Natriuret Pep pg/mL Total Protein (6.3-8.2) g/dL Albumin (3.5-5.0) g/dL Procalcitonin (0.02-0.09) ng/mL Urine Color Urine Appearance (Clear) Urine pH (5.0-8.0) Ur Specific [place] (1.001-1.035) Urine Protein (Negative) Urine Glucose (UA) (Negative) Urine Ketones (Negative) Urine Blood (Negative) Urine Nitrite (Negative) Urine Bilirubin (Negative) Urine Urobilinogen (<2.0) mg/dL Ur Leukocyte Esterase (Negative) Urine RBC (0-5) /hpf Urine WBC (0-5) /hpf Urine Bacteria (None) /hpf Hyaline Casts (0-2) /lpf Urine Mucus (None) /hpf Urine Sperm (None) /hpf Coronavirus (PCR) (Not Detectd) 08/13/20 08/13/20 08/13/20 Range/Units 16:44 16:44 16:44 WBC (3.8-10.6) k/uL RBC (4.30-5.90) m/uL Hgb (13.0-17.5) gm/dL Hct (39.0-53.0) % MCV (80.0-100.0) fL MCH (25.0-35.0) pg MCHC (31.0-37.0) g/dL RDW (11.5-15.5) % Plt Count (150-450) k/uL MPV Neutrophils % % Lymphocytes % % Monocytes % % Eosinophils % % Basophils % % Neutrophils # (1.3-7.7) k/uL Lymphocytes # (1.0-4.8) k/uL Monocytes # (0-1.0) k/uL Eosinophils # (0-0.7) k/uL Basophils # (0-0.2) k/uL PT (9.0-12.0) sec INR (<1.2) APTT (22.0-30.0) sec D-Dimer (<0.60) mg/L FEU Sodium 137 (137-145) mmol/L Potassium 3.9 (3.5-5.1) mmol/L Chloride 104 (98-107) mmol/L Carbon Dioxide 19 L (22-30) mmol/L Anion Gap 14 mmol/L BUN 67 H (9-20) mg/dL Creatinine 3.17 H (0.66-1.25) mg/dL Est GFR (CKD-EPI)AfAm 24 (>60 ml/min/1.73 sqM) Est GFR (CKD-EPI)NonAf 20 (>60 ml/min/1.73 sqM) Glucose 248 H (74-99) mg/dL POC Glucose (mg/dL) (75-99) mg/dL POC Glu Crew Chief ID Lactic Ac Sepsis Rflx Plasma Lactic Acid Karlo 4.4 H* (0.7-2.0) mmol/L Calcium 10.4 H (8.4-10.2) mg/dL Magnesium 2.2 (1.6-2.3) mg/dL Ferritin 65.4 (22.0-322.0) ng/mL Total Bilirubin 0.4 (0.2-1.3) mg/dL AST 53 (17-59) U/L ALT 32 (4-49) U/L Alkaline Phosphatase 125 (38-126) U/L Lactate Dehydrogenase 748 H (313-618) U/L Troponin I 7.390 H* (0.000-0.034) ng/mL C-Reactive Protein <5.0 (<10.0) mg/L NT-Pro-B Natriuret Pep pg/mL Total Protein 8.2 (6.3-8.2) g/dL Albumin 4.9 (3.5-5.0) g/dL Procalcitonin (0.02-0.09) ng/mL Urine Color Urine Appearance (Clear) Urine pH (5.0-8.0) Ur Specific [place] (1.001-1.035) Urine Protein (Negative) Urine Glucose (UA) (Negative) Urine Ketones (Negative) Urine Blood (Negative) Urine Nitrite (Negative) Urine Bilirubin (Negative) Urine Urobilinogen (<2.0) mg/dL Ur Leukocyte Esterase (Negative) Urine RBC (0-5) /hpf Urine WBC (0-5) /hpf Urine Bacteria (None) /hpf Hyaline Casts (0-2) /lpf Urine Mucus (None) /hpf Urine Sperm (None) /hpf Coronavirus (PCR) (Not Detectd) 08/13/20 08/13/20 08/13/20 Range/Units 16:44 16:44 16:44 WBC (3.8-10.6) k/uL RBC (4.30-5.90) m/uL Hgb (13.0-17.5) gm/dL Hct (39.0-53.0) % MCV (80.0-100.0) fL MCH (25.0-35.0) pg MCHC (31.0-37.0) g/dL RDW (11.5-15.5) % Plt Count (150-450) k/uL MPV Neutrophils % % Lymphocytes % % Monocytes % % Eosinophils % % Basophils % % Neutrophils # (1.3-7.7) k/uL Lymphocytes # (1.0-4.8) k/uL Monocytes # (0-1.0) k/uL Eosinophils # (0-0.7) k/uL Basophils # (0-0.2) k/uL PT (9.0-12.0) sec INR (<1.2) APTT (22.0-30.0) sec D-Dimer 0.62 H (<0.60) mg/L FEU Sodium (137-145) mmol/L Potassium (3.5-5.1) mmol/L Chloride (98-107) mmol/L Carbon Dioxide (22-30) mmol/L Anion Gap mmol/L BUN (9-20) mg/dL Creatinine (0.66-1.25) mg/dL Est GFR (CKD-EPI)AfAm (>60 ml/min/1.73 sqM) Est GFR (CKD-EPI)NonAf (>60 ml/min/1.73 sqM) Glucose (74-99) mg/dL POC Glucose (mg/dL) (75-99) mg/dL POC Glu Crew Chief ID Lactic Ac Sepsis Rflx Plasma Lactic Acid Karlo (0.7-2.0) mmol/L Calcium (8.4-10.2) mg/dL Magnesium (1.6-2.3) mg/dL Ferritin (22.0-322.0) ng/mL Total Bilirubin (0.2-1.3) mg/dL AST (17-59) U/L ALT (4-49) U/L Alkaline Phosphatase (38-126) U/L Lactate Dehydrogenase (313-618) U/L Troponin I (0.000-0.034) ng/mL C-Reactive Protein (<10.0) mg/L NT-Pro-B Natriuret Pep pg/mL Total Protein (6.3-8.2) g/dL Albumin (3.5-5.0) g/dL Procalcitonin 0.43 H (0.02-0.09) ng/mL Urine Color Urine Appearance (Clear) Urine pH (5.0-8.0) Ur Specific [place] (1.001-1.035) Urine Protein (Negative) Urine Glucose (UA) (Negative) Urine Ketones (Negative) Urine Blood (Negative) Urine Nitrite (Negative) Urine Bilirubin (Negative) Urine Urobilinogen (<2.0) mg/dL Ur Leukocyte Esterase (Negative) Urine RBC (0-5) /hpf Urine WBC (0-5) /hpf Urine Bacteria (None) /hpf Hyaline Casts (0-2) /lpf Urine Mucus (None) /hpf Urine Sperm (None) /hpf Coronavirus (PCR) Not Detected (Not Detectd) 08/13/20 08/13/20 08/13/20 Range/Units 16:44 17:17 17:35 WBC (3.8-10.6) k/uL RBC (4.30-5.90) m/uL Hgb (13.0-17.5) gm/dL Hct (39.0-53.0) % MCV (80.0-100.0) fL MCH (25.0-35.0) pg MCHC (31.0-37.0) g/dL RDW (11.5-15.5) % Plt Count (150-450) k/uL MPV Neutrophils % % Lymphocytes % % Monocytes % % Eosinophils % % Basophils % % Neutrophils # (1.3-7.7) k/uL Lymphocytes # (1.0-4.8) k/uL Monocytes # (0-1.0) k/uL Eosinophils # (0-0.7) k/uL Basophils # (0-0.2) k/uL PT (9.0-12.0) sec INR (<1.2) APTT (22.0-30.0) sec D-Dimer (<0.60) mg/L FEU Sodium (137-145) mmol/L Potassium (3.5-5.1) mmol/L Chloride (98-107) mmol/L Carbon Dioxide (22-30) mmol/L Anion Gap mmol/L BUN (9-20) mg/dL Creatinine (0.66-1.25) mg/dL Est GFR (CKD-EPI)AfAm (>60 ml/min/1.73 sqM) Est GFR (CKD-EPI)NonAf (>60 ml/min/1.73 sqM) Glucose (74-99) mg/dL POC Glucose (mg/dL) (75-99) mg/dL POC Glu Crew Chief ID Lactic Ac Sepsis Rflx Y Plasma Lactic Acid Karlo (0.7-2.0) mmol/L Calcium (8.4-10.2) mg/dL Magnesium (1.6-2.3) mg/dL Ferritin (22.0-322.0) ng/mL Total Bilirubin (0.2-1.3) mg/dL AST (17-59) U/L ALT (4-49) U/L Alkaline Phosphatase (38-126) U/L Lactate Dehydrogenase (313-618) U/L Troponin I (0.000-0.034) ng/mL C-Reactive Protein (<10.0) mg/L NT-Pro-B Natriuret Pep 75016 pg/mL Total Protein (6.3-8.2) g/dL Albumin (3.5-5.0) g/dL Procalcitonin (0.02-0.09) ng/mL Urine Color Light Yellow Urine Appearance Clear (Clear) Urine pH 5.5 (5.0-8.0) Ur Specific [place] 1.012 (1.001-1.035) Urine Protein 2+ H (Negative) Urine Glucose (UA) 4+ H (Negative) Urine Ketones Negative (Negative) Urine Blood Small H (Negative) Urine Nitrite Negative (Negative) Urine Bilirubin Negative (Negative) Urine Urobilinogen <2.0 (<2.0) mg/dL Ur Leukocyte Esterase Negative (Negative) Urine RBC 2 (0-5) /hpf Urine WBC 5 (0-5) /hpf Urine Bacteria Occasional H (None) /hpf Hyaline Casts 1 (0-2) /lpf Urine Mucus Rare H (None) /hpf Urine Sperm Rare (None) /hpf Coronavirus (PCR) (Not Detectd) Disposition Is patient prescribed a controlled substance at d/c from ED?: No Time of Disposition: 18:32 <Yayo William - Last Filed: 08/13/20 19:23> <Nataly Garrison - Last Filed: 08/16/20 20:54> Clinical Impression: T wave inversion in EKG, Elevated troponin, Myalgia Disposition: ADMITTED IP TO THIS HOSP
[2020-08-13] MEDS: HEPARIN SOD,PORK IN 0.45% NACL 25,000 UNIT in 0.45% NACL 1 250ML.BAG IV SCH (18:18)
[2020-08-13] MEDS ORDERED: MORPHINE SULFATE 4 MG/ML SYRINGE IVP STA (18:26)
--- NOTE | 2020-08-13 19:18 | P.CRDCN ---
History of Present Illness History of present illness: HISTORY OF PRESENTING ILLNESS This is a pleasant 59-year-old male past medical history significant for diabetes mellitus, hypertension, hyperlipidemia, chronic kidney disease stage IV, anemia, extreme neuropathy, and prior coronary artery disease with PCI in 2004 who presents secondary to body aches all over which were occurring in his arms and legs. This was associated with some shortness of breath. He denies any specific chest pain or pressure. He admits his prior PCI he was never really having any chest pain or pressure. His neuropathy is so bad that he cannot feel his hands, feet and is "numb from the waist down". He admits to feeling somewhat better after morphine however generalized pain all over. Patient admits he does not follow with a collector. Initial EKG showed diffuse ST depressions in the anterolateral leads. Blood work shows non-STEMI with troponin 7.4, lactic acid 4.4, proBNP 12,800, CRP less than 5, d-dimer 0.62, jose virus negative, creatinine 3.17, bicarb 19, white blood cell 7 and hemoglobin 10.6. Chest x-ray shows no acute process. Patient denies any actual fevers, chills. Most of his pain is between her shoulders as well as down his a saul and his legs. Denies any worsening numbness or tingling. REVIEW OF SYSTEMS At the time of my exam: CONSTITUTIONAL: Denies fever or chills. CARDIOVASCULAR: Denies chest pain, +shortness of breath, no orthopnea, PND or palpitations. RESPIRATORY: Denies cough. GASTROINTESTINAL: Denies abdominal pain, diarrhea, constipation, nausea or vomiting. MUSCULOSKELETAL: Denies myalgias. NEUROLOGIC: Denies numbness, tingling or weakness. ENDOCRINE: Denies fatigue, weight change, polydipsia or polyurina. GENITOURINARY: Denies burning, hematuria or urgency with micturation. HEMATOLOGIC: Denies history of anemia or bleeding. PHYSICAL EXAMINATION Blood pressure 151/72 heart rate 93 afebrile and maintaining oxygen saturation on room air. CONSTITUTIONAL: Mild distress, thin. HEENT: Head is normocephalic. Pupils are equal, round. Sclerae anicteric. Mucous membranes of the mouth are moist. No JVD. No carotid bruit. CHEST EXAMINATION: Lungs are clear to auscultation. No chest wall tenderness is noted on palpation or with deep breathing. HEART EXAMINATION: Regular rate and rhythm. S1, S2 heard. No murmurs, gallops or rub. ABDOMEN: Soft, nontender. Positive bowel sounds. EXTREMITIES: 2+ peripheral pulses, no lower extremity edema and no calf tenderness. NEUROLOGIC EXAMINATION: Patient is awake, alert and oriented x3. ASSESSMENT 1. Non-STEMI with diffuse ST depressions 2. Lactic acidosis 3. Chronic kidney disease with prior creatinine 1.8, 2.1 from January 2020, appears to be acute kidney injury versus progression 4. History of coronary artery disease with prior PCI 5. Diabetes mellitus type 1 6. 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 Anemia PLAN Patient presents with vague symptoms of pain and shortness of breath all over. There are no fevers, chills, no white count, CRP normal and does not appear to be any infectious etiology. Patient has non-STEMI and suspect patient still actively infarcting and patient likely has neuropathy with inability to feel any angina. Bedside echo performed which shows ejection fraction approximately 45% with anterolateral hypokinesis. Concern of active infarction and therefore discussed risks and benefits of heart catheterization. Specifically discussed high risk of acute kidney injury needing dialysis. Patient understanding of risks and willing to proceed. Further recommendations to follow. Prognosis guarded. Past Medical History Past Medical History: Coronary Artery Disease (CAD), Diabetes Mellitus, Eye Disorder, Hyperlipidemia, Renal Disease Additional Past Medical History / Comment(s): IDDM type I with insulin pump, CKD stage IV, polyneuropathy, dupuytren's bilateral hands, chronic R foot ulcer, chronic bilateral foot pain, chronic low back pain/fracture, R eye cataract History of Any Multi-Drug Resistant Organisms: MRSA Date of last positivie culture/infection: 2014 MDRO Source:: right foot Past Surgical History: Heart Catheterization With Stent, Orthopedic Surgery Additional Past Surgical History / Comment(s): L hand fracture with pins, 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 He had type I diabetes and it ran strongly on father's side of family Mother Family Medical History: Vascular Disorder Additional Family Medical History / Comment(s): Mother from a brain aneurysm. Medications and Allergies Home Medications Medication Instructions Recorded Confirmed Type Aspirin EC [Ecotrin Low Dose] 81 mg PO DAILY 01/31/20 01/31/20 History Insulin Aspart (For Pump) [NovoLOG 0.01 unit SQ-PUMP CONTINUOUS 01/31/20 01/31/20 History (For Pump)] Rosuvastatin [Crestor] 10 mg PO DAILY 01/31/20 01/31/20 History Dicyclomine [Bentyl] 10 mg PO TID PRN #90 cap 02/01/20 Rx Levofloxacin [Levaquin] 250 mg PO DAILY 7 Days #7 tab 02/01/20 Rx metroNIDAZOLE [Flagyl] 500 mg PO Q8HR #21 tab 02/01/20 Rx Allergies Allergy/AdvReac Type Severity Reaction Status Date / Time No Known Allergies Allergy Verified 08/13/20 16:25 Physical Exam Vitals: Vital Signs Temp Pulse Resp BP Pulse Ox 08/13/20 18:16 98.5 F 93 18 151/72 100 08/13/20 16:20 98.8 F 92 18 144/70 100 Intake and Output 08/13/20 08/13/20 08/13/20 06:59 14:59 22:59 Other: Weight 57.606 kg Results 08/13/20 16:44 08/13/20 16:44 Cardiac Enzymes 08/13/20 08/13/20 Range/Units 16:44 16:44 AST 53 (17-59) U/L Lactate Dehydrogenase 748 H (313-618) U/L Troponin I 7.390 H* (0.000-0.034) ng/mL Coagulation 08/13/20 Range/Units 16:44 PT 9.4 (9.0-12.0) sec APTT 23.2 (22.0-30.0) sec CBC 08/13/20 Range/Units 16:44 WBC 7.0 (3.8-10.6) k/uL RBC 3.31 L (4.30-5.90) m/uL Hgb 10.6 L (13.0-17.5) gm/dL Hct 30.2 L (39.0-53.0) % Plt Count 295 (150-450) k/uL Comprehensive Metabolic Panel 08/13/20 Range/Units 16:44 Sodium 137 (137-145) mmol/L Potassium 3.9 (3.5-5.1) mmol/L Chloride 104 (98-107) mmol/L Carbon Dioxide 19 L (22-30) mmol/L BUN 67 H (9-20) mg/dL Creatinine 3.17 H (0.66-1.25) mg/dL Glucose 248 H (74-99) mg/dL Calcium 10.4 H (8.4-10.2) mg/dL AST 53 (17-59) U/L ALT 32 (4-49) U/L Alkaline Phosphatase 125 (38-126) U/L Total Protein 8.2 (6.3-8.2) g/dL Albumin 4.9 (3.5-5.0) g/dL Current Medications Generic Name Dose Route Start Last Admin Trade Name Freq PRN Reason Stop Dose Admin Heparin Sodium (Porcine) 0 unit 08/13/20 17:38 Heparin Sodium,Porcine 5,000 Unit/Ml 1 Ml Vial IV PER PROTOCOL PRN Low PTT Protocol Heparin Sodium/Sodium Chloride 250 mls @ 6.913 mls/hr 08/13/20 17:45 08/13/20 18:18 25,000 unit/ Sodium Chloride IV 12 units/kg/hr .Q24H JACKI 6.913 mls/hr Administration Protocol 12 UNITS/KG/HR Intake and Output 08/13/20 08/13/20 08/13/20 06:59 14:59 22:59 Other: Weight 57.606 kg Patient Weight 08/14/20 06:59 Weight 57.606 kg 08/13/20 16:44 08/13/20 16:44
[2020-08-13] MEDS: LIDOCAINE 1% INJ 10MG/ML (20 ML MDV) SQ ONE ×2 (19:31→19:42)
[2020-08-13] MEDS ORDERED: MIDAZOLAM 2 MG/2 ML VIAL IV ONE (19:32)
[2020-08-13] MEDS ORDERED: SODIUM CHLORIDE 0.9% 1,000 ML IV ONE (19:39)
[2020-08-13] MEDS ORDERED: IOPAMIDOL-370 125ML BTL INJ ONE (19:58)
--- NOTE | 2020-08-13 20:23 | P.CARDCATH ---
Description of Procedure: PROCEDURES PERFORMED: Left heart catheterization, bilateral coronary angiography, Angio-Seal INDICATION: Non-STEMI HISTORY: Patient is a pleasant 59-year-old male with history of diabetes mellitus type 1, hypertension, hyperlipidemia, chronic kidney disease stage IV, anemia, extreme neuropathy and prior coronary artery disease with PCI in 2004 to the RCA who presented with vague symptoms of body aches all over occurring in bilateral legs, arms and shoulders. This was associated with some shortness breath. He had workup in the ER which did not show any obvious infectious etiology with normal chest x-ray, normal white count however with lactic acid 4.4, chronic kidney disease with creatinine 3.17, bicarb 19. Bedside echoca rdiogram showed concern of anterolateral hypokinesis and given concern of patient likely having silent ischemia from his diabetic neuropathy with diffuse ST depressions and new wall motion abnormality, heart catheterization was recommended. Extensive discussion regarding possible acute kidney injury and need for dialysis with heart catheterization was discussed. CONSENT:I have discussed the risks, benefits and alternative therapies for the above-mentioned procedure and for both sedation/analgesia as well as necessary blood product administration, if indicated, as they pertain to this patient. The patient has indicated understanding and acceptance of the risks and procedures discussed. PROCEDURE: After the risks, benefits and alternatives of the above mentioned procedure explained in detail with the patient, informed consent was obtained. Patient was taken to the catheterization lab and prepped and draped in usual fashion. 1% lidocaine was used to anesthetize the right radial artery. I was unable to advance a wire with spasm and therefore radial approach was abandoned. Next one percent lidocaine was used to anesthetize the right femoral area. A 6-Ecuadorean sheath was placed in the right femoral artery using modified Seldinger technique and micropuncture technique. Left coronary angiography was performed with a 6-Ecuadorean JL 4 catheter and right coronary angiography was performed with a 6-Ecuadorean FR4 catheter in various views. The FL 4.0 catheter was advanced into the LV and pressure measurements were obtained. A right femoral angiogram was performed which showed adequate anatomy for closure. A 6Fr Angioseal was placed and hemoastasis was achieved. The patient tolerated the procedure well. Patient was transported back to the post catheterization holding area in stable condition. Conscious Sedation: Patient was monitored under the direct supervision of vision of myself for conscious sedation using Versed and fentanyl for a total duration of 29 minutes HEMODYNAMICS: Aorta: 145/70 LV: 151/1, LVEDP 5 SELECTIVE CORONARY ARTERIOGRAPHY: LEFT MAIN: The left main is a large caliber vessel which bifurcates into the LAD and circumflex. There is no significant stenosis. LEFT ANTERIOR DESCENDING CORONARY ARTERY: LAD is a large caliber vessel which wraps around to the apex. Proximal to mid LAD has only mild luminal irregularities however the mid LAD has a focal 95% stenosis followed by diffuse 30-50% mid to distal LAD disease. The distal LAD is a good target with normal appearance. LEFT CIRCUMFLEX CORONARY ARTERY: Left circumflex is a moderate caliber vessel. The proximal circumflex has a 30% stenosis. OM1 is moderate caliber and has a proximal 60-70% followed by 50% stenosis. The mid to distal OM has a good target. Just after the OM1, there is a 30-40% circumflex stenosis followed by a 80% mid circumflex stenosis. OM 2 is small caliber and is subtotally occluded proximally. RIGHT CORONARY ARTERY: The right coronary artery is a small to moderate caliber vessel which gives off a PDA and PLV branch and is the dominant vessel. There is a 30-40% diffuse proximal disease with dampening of the catheter noted. There is a proximal and mid RCA stent. There is a mid RCA 85% stenosis in between the 2 stents. There is a good target of the PDA. FINAL IMPRESSION: 1. 3 vessel CAD as described above with 95% mid LAD stenosis, 60-70% OM1, 100% small OM2, 80% mid circumflex, 85% mid RCA stenosis. 2. Low left sided filling pressures. 3. NSTEMI with concern of silent ischemia due to neuropathy however with MERNA 3 flow throughout. 4. CKD stage 4 PLAN: 1. Aggressive risk factor modification per most recent ACC/AHA guidelines. 2. Given multivessel disease, diabetes mellitus and chronic kidney disease with likely need for multiple procedures with contrast, we will limit any further contrast use and have cardiothoracic surgery evaluation for possible CABG.
[2020-08-13] MEDS ORDERED: RX INFO: IV CONTRAST WAS GIVEN 1 EACH MISC MISCELLANE PRN (20:28)
[2020-08-13] MEDS ORDERED: SODIUM CHLORIDE 0.9% 1,000 ML IV SCH (20:30)
[2020-08-13 21:12] LABS: Glucose,Whole Blood 505 mg/dL (75-99)
[2020-08-13 21:14] LABS: Glucose,Whole Blood 519 mg/dL (75-99)
[2020-08-13] MEDS: METOPROLOL TARTRATE 25 MG TAB PO SCH (22:31)
[2020-08-13] MEDS: Acetaminophen-Codeine 300-30mg TAB PO PRN (22:32)
[2020-08-13] MEDS: FERROUS SULFATE 325 MG TAB PO SCH (22:32)
[2020-08-13] MEDS: SODIUM CHLORIDE 0.9% 1,000 ML IV SCH (22:33)
--- NOTE | 2020-08-13 22:34 | P.HPIM ---
History of Present Illness H&P Date: 08/13/20 Chief Complaint: Non-ST CO, acute kidney failure, diabetes, hypertension hyp erlipidemia 59-year-old male one of Dr. Roach's patient with past medical history of diabetes on insulin pump, history of hypertension, hyperlipidemia, chronic neuropathy who is also noted to have coronary artery disease post PCI and stent placement back in 2004 was also has been having chronic kidney disease taste for. Patient presented to the emergency department today 08/13/2020 complaining of body ache all over his body along with numbness with worsening shortness of breath with nonspecific chest tightness or pressure and claims his neuropathy has been a lot worse he could not feel his feet and hands. His blood sugar has been slightly bit elevated as well. 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 Review of Systems CONSTITUTIONAL: Well-developed no acute respiratory distress. EYES: No icterus sclerae, no conjunctivitis. EARS, NOSE, MOUTH, THROAT, and FACE: No sore throat, lymphadenopathy, carotid bruits or deformity. RESPIRATORY: No SOB cough or wheezes. CARDIOVASCULAR: No CP, Palpitation, PND, Orthopnea, or angina. GASTROINTESTINAL: No Abd pain, Nausea or vomiting, no Diarrhea or constipation, No GI Bleed, no distention or masses. GENITOURINARY: Negative for Hematuria or UTI, no kidney stones. INTEGUMENT/BREAST: Negative for any muscular injury with mild osteoarthritis.. HEMATOLOGIC/LYMPHATIC: Negative for bleed or purpura. MUSCULOSKELTAL: Negative for Myalgia or arthralgia. NEURLOGICAL: No LOC, Sz or syncope, blurred vision dizziness or abnormality.. BEHAVIORAL/PSYCH: Negative. ENDOCRINE: Negative. Social history: Patient smokes 1 pack a day for the last 35 years, drinks alcohol socially. Decline any drug abuse. Family history: His father had history of diabetes and vascular heart disease from brain aneurysm, mother had vascular disease from brain aneurysm as well. Sibling history of diabetes. Past Medical History Past Medical History: Coronary Artery Disease (CAD), Diabetes Mellitus, Eye Disorder, Hyperlipidemia, Renal Disease Additional Past Medical History / Comment(s): IDDM type I with insulin pump, CKD stage IV, polyneuropathy, dupuytren's bilateral hands, chronic R foot ulcer, chronic bilateral foot pain, chronic low back pain/fracture, R eye cataract History of Any Multi-Drug Resistant Organisms: MRSA Date of last positivie culture/infection: 2014 MDRO Source:: right foot Past Surgical History: Heart Catheterization With Stent, Orthopedic Surgery Additional Past Surgical History / Comment(s): L hand fracture with pins, 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 He had type I diabetes and it ran strongly on father's side of family Mother Family Medical History: Vascular Disorder Additional Family Medical History / Comment(s): Mother from a brain aneurysm. Medications and Allergies Home Medications Medication Instructions Recorded Confirmed Type Aspirin EC [Ecotrin Low Dose] 81 mg PO DAILY 01/31/20 08/13/20 History Insulin Aspart (For Pump) [NovoLOG 0.01 unit SQ-PUMP CONTINUOUS 01/31/20 08/13/20 History (For Pump)] Rosuvastatin [Crestor] 10 mg PO DAILY 01/31/20 08/13/20 History Enalapril Maleate [Vasotec] 2.5 mg PO DAILY 08/13/20 08/13/20 History Ferrous Sulfate [Iron (65 MG 325 mg PO Q48H 08/13/20 08/13/20 History Elemental)] Vitamin D3 (Unknown Strength) 1 tab PO DAILY 08/13/20 08/13/20 History Allergies Allergy/AdvReac Type Severity Reaction Status Date / Time No Known Allergies Allergy Verified 08/13/20 19:10 Physical Exam Vitals: Vital Signs Temp Pulse Resp BP Pulse Ox 08/13/20 21:20 98.6 F 112 H 14 100 08/13/20 18:16 98.5 F 93 18 151/72 100 08/13/20 16:20 98.8 F 92 18 144/70 100 Intake and Output 08/13/20 08/13/20 08/13/20 06:59 14:59 22:59 Intake Total 620 Output Total 150 Balance 470 Intake: IV 520 0.9 KVO 20 Oral 100 Output: Urine 150 Other: # Voids 1 Weight 57.606 kg General Appearance: Alert, cooperative, no distress, appears stated age. Neck HEENT: Supple, no lymphadenopathy, no thyroid enlargement, no carotid bruits. Lungs: Clear to auscultation without crackles or wheezes no rhonchi, no deformity. Chest Wall: Chest wall normal expansion with deep inspiration no tenderness and no deformity was found on exam, no costochondral pain or discomfort. Heart: Regular rate and rhythm, S1, S2 normal, no murmur, rub or gallop. Back: Symmetric, no curvature, ROM normal, no CVA tenderness. Abdomen: Soft, non-tender, bowel sounds active all four quadrants, no masses, no organomegaly. Extremities: Extremities normal, atraumatic, no cyanosis or edema. Pulses: 2+ and symmetric. Skin: Skin color, texture, tugor normal, no rashes or lesions. Neurologic: Alert oriented x3 cranial nerves II through XII intact, no motor deficit, no abnormal balance or gait. Slight peripheral neuropathy with lack of sensation of the hands and feet. Results CBC & Chem 7: 08/13/20 16:44 08/13/20 16:44 Labs: Abnormal Lab Results - Last 24 Hours (Table) 08/13/20 08/13/20 08/13/20 Range/Units 16:28 16:44 16:44 RBC 3.31 L (4.30-5.90) m/uL Hgb 10.6 L (13.0-17.5) gm/dL Hct 30.2 L (39.0-53.0) % D-Dimer (<0.60) mg/L FEU Carbon Dioxide 19 L (22-30) mmol/L BUN 67 H (9-20) mg/dL Creatinine 3.17 H (0.66-1.25) mg/dL Glucose 248 H (74-99) mg/dL POC Glucose (mg/dL) 287 H (75-99) mg/dL Plasma Lactic Acid Karlo (0.7-2.0) mmol/L Calcium 10.4 H (8.4-10.2) mg/dL Lactate Dehydrogenase 748 H (313-618) U/L Troponin I (0.000-0.034) ng/mL Urine Protein (Negative) Urine Glucose (UA) (Negative) Urine Blood (Negative) Urine Bacteria (None) /hpf Urine Mucus (None) /hpf 08/13/20 08/13/20 08/13/20 Range/Units 16:44 16:44 16:44 RBC (4.30-5.90) m/uL Hgb (13.0-17.5) gm/dL Hct (39.0-53.0) % D-Dimer 0.62 H (<0.60) mg/L FEU Carbon Dioxide (22-30) mmol/L BUN (9-20) mg/dL Creatinine (0.66-1.25) mg/dL Glucose (74-99) mg/dL POC Glucose (mg/dL) (75-99) mg/dL Plasma Lactic Acid Karlo 4.4 H* (0.7-2.0) mmol/L Calcium (8.4-10.2) mg/dL Lactate Dehydrogenase (313-618) U/L Troponin I 7.390 H* (0.000-0.034) ng/mL Urine Protein (Negative) Urine Glucose (UA) (Negative) Urine Blood (Negative) Urine Bacteria (None) /hpf Urine Mucus (None) /hpf 08/13/20 08/13/20 08/13/20 Range/Units 17:35 21:11 21:13 RBC (4.30-5.90) m/uL Hgb (13.0-17.5) gm/dL Hct (39.0-53.0) % D-Dimer (<0.60) mg/L FEU Carbon Dioxide (22-30) mmol/L BUN (9-20) mg/dL Creatinine (0.66-1.25) mg/dL Glucose (74-99) mg/dL POC Glucose (mg/dL) 505 H 519 H (75-99) mg/dL Plasma Lactic Acid Karlo (0.7-2.0) mmol/L Calcium (8.4-10.2) mg/dL Lactate Dehydrogenase (313-618) U/L Troponin I (0.000-0.034) ng/mL Urine Protein 2+ H (Negative) Urine Glucose (UA) 4+ H (Negative) Urine Blood Small H (Negative) Urine Bacteria Occasional H (None) /hpf Urine Mucus Rare H (None) /hpf Thrombosis Risk Factor Assmnt - DVT/VTE Prophylaxis DVT/VTE Prophylaxis: Pharmacologic Prophylaxis ordered, Mechanical Prophylaxis ordered Assessment and Plan Assessment: 1 non-ST CO: With multiple coronary artery disease involvement patient did not require any angioplasty or stent placement at this point patient will be seen cardiothoracic surgeon for possible need for bypass surgery. Continue secondary prevention. 2 acute kidney injury with acute kidney failure on stage IV chronic kidney disease: Hydration we'll consult nephrology repeat BUN/creatinine 24 hours. 3 diabetes: Most likely type I on insulin pump will continue patient on Accu- Chek with sliding scales coverage and resume his insulin pump at this point. 4 hypertension: Has been on enalapril 2.5 mg a day surprisingly is not on any beta jaxon. 5 hyperlipidemia: Resume Crestor at 10 mg daily. 6 chronic advance diabetic peripheral neuropathy: Patient should be on at least a starter of neuropathy medication like gabapentin or Lyrica something highly suggested to be done as an outpatient. 7 mild anemia: Iron supplement and repeat CBC watch for any GI bleed. 8 GI prophylaxis: Patient be on pantoprazole 40 mg daily. 9 DVT prophylaxis: Patient will have knee-high RUTHANN hose. CODE STATUS: Full code. Admit patient to the inpatient service for more than 2 night stay.
[2020-08-13 22:40] LABS: Glucose,Whole Blood 506 mg/dL (75-99)
[2020-08-13] MEDS ORDERED: INSULIN REGULAR BOLUS (FROM DRIP BAG) IV PRN (22:42)
[2020-08-13] MEDS ORDERED: INSULIN REGULAR 100 UNIT in SODIUM CHLORIDE 0.9% 100 ML IV SCH (22:45)
[2020-08-13 23:58] LABS: Glucose,Whole Blood 435 mg/dL (75-99)
[2020-08-14 00:54] LABS: Glucose,Whole Blood 341 mg/dL (75-99)
[2020-08-14] MEDS: Insulin Aspart (For Pump) 100 UNIT/ML VIAL SQ-PUMP SCH ×2 (01:22→21:14)
[2020-08-14 01:55] LABS: Glucose,Whole Blood 170 mg/dL (75-99)
[2020-08-14 03:07] LABS: Glucose,Whole Blood 55 mg/dL (75-99)
[2020-08-14 03:36] LABS: Glucose,Whole Blood 44 mg/dL (75-99)
[2020-08-14 04:06] LABS: Glucose,Whole Blood 106 mg/dL (75-99)
[2020-08-14 04:54] LABS: Basophils % (A) 0 %; Eosinophils % (A) 0 %; HCT 23.6 % (39.0-53.0); Lymphocytes % (A) 19 %; MCH 31.2 pg (25.0-35.0); MCHC 33.9 g/dL (31.0-37.0); Mean Platelet Volume 7.9; Monocytes # (A) 0.9 k/uL (0-1.0); Monocytes % (A) 9 %; Neutrophils # (A) 7.2 k/uL (1.3-7.7); Neutrophils % (A) 69 %; Platelet Count 228 k/uL (150-450); RBC 2.56 m/uL (4.30-5.90); RDW 14.6 % (11.5-15.5); WBC 10.4 k/uL (3.8-10.6)
[2020-08-14 04:56] LABS: Glucose,Whole Blood 240 mg/dL (75-99)
[2020-08-14 05:17] LABS: Prothrombin Time 10.1 sec (9.0-12.0)
[2020-08-14 05:24] LABS: Partial Thromboplastin Time 120.9 sec (22.0-30.0)
[2020-08-14 05:48] LABS: Albumin 3.3 g/dL (3.5-5.0); Calcium 8.6 mg/dL (8.4-10.2); Potassium 4.3 mmol/L (3.5-5.1); Total Bilirubin 0.4 mg/dL (0.2-1.3); Total Protein 6.2 g/dL (6.3-8.2)
[2020-08-14 06:08] LABS: Ferritin 65.4 ng/mL (22.0-322.0)
[2020-08-14 06:13] LABS: Glucose,Whole Blood 156 mg/dL (75-99)
[2020-08-14 07:07] LABS: Glucose,Whole Blood 116 mg/dL (75-99)
[2020-08-14] MEDS ORDERED: INSULIN ASPART (NovoLOG) 100 UNIT/ML VIAL SQ SCH (07:30)
--- NOTE | 2020-08-14 07:31 | P.PN ---
Subjective Progress Note Date: 08/14/20 Principal diagnosis: Acute coronary syndrome This is a 59-year-old gentleman who was admitted to the hospital with bilateral arms discomfort and body ache and was ruled in for acute non-ST deviation myocardial infarction. He underwent a heart catheterization and that revealed s evere triple-vessel coronary artery disease. The patient was admitted to the intensive care unit and the [surgical team consult was placed and the patient is in process to be seen. The patient was seen this morning. He denies any chest pain or chest discomfort. He is hemodynamically stable. He is on maximize medical treatment including antiplatelet as well as a statin as well as metoprolol as well as lisinopril. I am going to increase the dose of Lipitor to 80 mg by mouth daily at bedtime. An echocardiogram and carotid duplex study are in process to be done. Objective - Vital Signs Vital signs: Vital Signs Temp 98.9 F 08/14/20 04:00 Pulse 75 08/14/20 07:00 Resp 16 08/14/20 07:00 BP 114/63 08/14/20 07:00 Pulse Ox 98 08/14/20 07:00 Intake & Output 08/13/20 08/14/20 08/14/20 18:59 06:59 18:59 Intake Total 3148.421 350 Output Total 700 200 Balance 2448.421 150 Weight 57.606 kg 56.8 kg Intake: IV 1420 100 0.9 KVO 20 Sodium Chloride 0.9% 1, 900 100 000 ml @ 100 mls/hr IV . Q10H JACKI Rx#:[id number] Intake, IV Titration 128.421 Amount Heparin Sod,Pork in 0.45% 84.107 NaCl 25,000 unit In 0.45 % NaCl 1 250ml.bag @ 12 UNITS/KG/HR 6.913 mls/hr IV .Q24H JACKI Rx#: [id number] Insulin Regular 100 unit 44.314 In Sodium Chloride 0.9% 100 ml @ Per Protocol IV .Q0M JACKI Rx#:[id number] Oral 1600 250 Output: Urine 700 200 Other: Voiding Method Urinal # Voids 1 1 - Constitutional General appearance: Present: no acute distress - Respiratory Respiratory: bilateral: CTA - Cardiovascular Rhythm: regular Heart sounds: normal: S1, S2 - Labs CBC & Chem 7: 08/14/20 04:29 08/14/20 04:29 Labs: Abnormal Lab Results - Last 24 Hours (Table) 08/13/20 08/13/20 08/13/20 Range/Units 16:28 16:44 16:44 RBC 3.31 L (4.30-5.90) m/uL Hgb 10.6 L (13.0-17.5) gm/dL Hct 30.2 L (39.0-53.0) % APTT (22.0-30.0) sec D-Dimer (<0.60) mg/L FEU Sodium (137-145) mmol/L Carbon Dioxide 19 L (22-30) mmol/L BUN 67 H (9-20) mg/dL Creatinine 3.17 H (0.66-1.25) mg/dL Glucose 248 H (74-99) mg/dL POC Glucose (mg/dL) 287 H (75-99) mg/dL Plasma Lactic Acid Karlo (0.7-2.0) mmol/L Calcium 10.4 H (8.4-10.2) mg/dL Lactate Dehydrogenase 748 H (313-618) U/L Troponin I (0.000-0.034) ng/mL Total Protein (6.3-8.2) g/dL Albumin (3.5-5.0) g/dL HDL Cholesterol (40-60) mg/dL Procalcitonin (0.02-0.09) ng/mL Urine Protein (Negative) Urine Glucose (UA) (Negative) Urine Blood (Negative) Urine Bacteria (None) /hpf Urine Mucus (None) /hpf 08/13/20 08/13/20 08/13/20 Range/Units 16:44 16:44 16:44 RBC (4.30-5.90) m/uL Hgb (13.0-17.5) gm/dL Hct (39.0-53.0) % APTT (22.0-30.0) sec D-Dimer (<0.60) mg/L FEU Sodium (137-145) mmol/L Carbon Dioxide (22-30) mmol/L BUN (9-20) mg/dL Creatinine (0.66-1.25) mg/dL Glucose (74-99) mg/dL POC Glucose (mg/dL) (75-99) mg/dL Plasma Lactic Acid Karlo 4.4 H* (0.7-2.0) mmol/L Calcium (8.4-10.2) mg/dL Lactate Dehydrogenase (313-618) U/L Troponin I 7.390 H* (0.000-0.034) ng/mL Total Protein (6.3-8.2) g/dL Albumin (3.5-5.0) g/dL HDL Cholesterol (40-60) mg/dL Procalcitonin 0.43 H (0.02-0.09) ng/mL Urine Protein (Negative) Urine Glucose (UA) (Negative) Urine Blood (Negative) Urine Bacteria (None) /hpf Urine Mucus (None) /hpf 08/13/20 08/13/20 08/13/20 Range/Units 16:44 17:35 21:11 RBC (4.30-5.90) m/uL Hgb (13.0-17.5) gm/dL Hct (39.0-53.0) % APTT (22.0-30.0) sec D-Dimer 0.62 H (<0.60) mg/L FEU Sodium (137-145) mmol/L Carbon Dioxide (22-30) mmol/L BUN (9-20) mg/dL Creatinine (0.66-1.25) mg/dL Glucose (74-99) mg/dL POC Glucose (mg/dL) 505 H (75-99) mg/dL Plasma Lactic Acid Karlo (0.7-2.0) mmol/L Calcium (8.4-10.2) mg/dL Lactate Dehydrogenase (313-618) U/L Troponin I (0.000-0.034) ng/mL Total Protein (6.3-8.2) g/dL Albumin (3.5-5.0) g/dL HDL Cholesterol (40-60) mg/dL Procalcitonin (0.02-0.09) ng/mL Urine Protein 2+ H (Negative) Urine Glucose (UA) 4+ H (Negative) Urine Blood Small H (Negative) Urine Bacteria Occasional H (None) /hpf Urine Mucus Rare H (None) /hpf 08/13/20 08/13/20 08/13/20 Range/Units 21:13 21:58 22:38 RBC (4.30-5.90) m/uL Hgb (13.0-17.5) gm/dL Hct (39.0-53.0) % APTT (22.0-30.0) sec D-Dimer (<0.60) mg/L FEU Sodium (137-145) mmol/L Carbon Dioxide (22-30) mmol/L BUN (9-20) mg/dL Creatinine (0.66-1.25) mg/dL Glucose (74-99) mg/dL POC Glucose (mg/dL) 519 H 506 H (75-99) mg/dL Plasma Lactic Acid Karlo (0.7-2.0) mmol/L Calcium (8.4-10.2) mg/dL Lactate Dehydrogenase (313-618) U/L Troponin I 6.580 H* (0.000-0.034) ng/mL Total Protein (6.3-8.2) g/dL Albumin (3.5-5.0) g/dL HDL Cholesterol (40-60) mg/dL Procalcitonin (0.02-0.09) ng/mL Urine Protein (Negative) Urine Glucose (UA) (Negative) Urine Blood (Negative) Urine Bacteria (None) /hpf Urine Mucus (None) /hpf 08/13/20 08/14/20 08/14/20 Range/Units 23:56 00:10 00:10 RBC (4.30-5.90) m/uL Hgb (13.0-17.5) gm/dL Hct (39.0-53.0) % APTT 32.7 H (22.0-30.0) sec D-Dimer (<0.60) mg/L FEU Sodium (137-145) mmol/L Carbon Dioxide (22-30) mmol/L BUN (9-20) mg/dL Creatinine (0.66-1.25) mg/dL Glucose (74-99) mg/dL POC Glucose (mg/dL) 435 H (75-99) mg/dL Plasma Lactic Acid Karlo (0.7-2.0) mmol/L Calcium (8.4-10.2) mg/dL Lactate Dehydrogenase (313-618) U/L Troponin I 4.980 H* (0.000-0.034) ng/mL Total Protein (6.3-8.2) g/dL Albumin (3.5-5.0) g/dL HDL Cholesterol (40-60) mg/dL Procalcitonin (0.02-0.09) ng/mL Urine Protein (Negative) Urine Glucose (UA) (Negative) Urine Blood (Negative) Urine Bacteria (None) /hpf Urine Mucus (None) /hpf 08/14/20 08/14/20 08/14/20 Range/Units 00:52 01:54 03:06 RBC (4.30-5.90) m/uL Hgb (13.0-17.5) gm/dL Hct (39.0-53.0) % APTT (22.0-30.0) sec D-Dimer (<0.60) mg/L FEU Sodium (137-145) mmol/L Carbon Dioxide (22-30) mmol/L BUN (9-20) mg/dL Creatinine (0.66-1.25) mg/dL Glucose (74-99) mg/dL POC Glucose (mg/dL) 341 H 170 H 55 L (75-99) mg/dL Plasma Lactic Acid Karlo (0.7-2.0) mmol/L Calcium (8.4-10.2) mg/dL Lactate Dehydrogenase (313-618) U/L Troponin I (0.000-0.034) ng/mL Total Protein (6.3-8.2) g/dL Albumin (3.5-5.0) g/dL HDL Cholesterol (40-60) mg/dL Procalcitonin (0.02-0.09) ng/mL Urine Protein (Negative) Urine Glucose (UA) (Negative) Urine Blood (Negative) Urine Bacteria (None) /hpf Urine Mucus (None) /hpf 08/14/20 08/14/20 08/14/20 Range/Units 03:34 03:55 04:29 RBC 2.56 L (4.30-5.90) m/uL Hgb 8.0 L D (13.0-17.5) gm/dL Hct 23.6 L (39.0-53.0) % APTT (22.0-30.0) sec D-Dimer (<0.60) mg/L FEU Sodium (137-145) mmol/L Carbon Dioxide (22-30) mmol/L BUN (9-20) mg/dL Creatinine (0.66-1.25) mg/dL Glucose (74-99) mg/dL POC Glucose (mg/dL) 44 L 106 H (75-99) mg/dL Plasma Lactic Acid Karlo (0.7-2.0) mmol/L Calcium (8.4-10.2) mg/dL Lactate Dehydrogenase (313-618) U/L Troponin I (0.000-0.034) ng/mL Total Protein (6.3-8.2) g/dL Albumin (3.5-5.0) g/dL HDL Cholesterol (40-60) mg/dL Procalcitonin (0.02-0.09) ng/mL Urine Protein (Negative) Urine Glucose (UA) (Negative) Urine Blood (Negative) Urine Bacteria (None) /hpf Urine Mucus (None) /hpf 08/14/20 08/14/20 08/14/20 Range/Units 04:29 04:29 04:54 RBC (4.30-5.90) m/uL Hgb (13.0-17.5) gm/dL Hct (39.0-53.0) % APTT 120.9 H* (22.0-30.0) sec D-Dimer (<0.60) mg/L FEU Sodium 134 L (137-145) mmol/L Carbon Dioxide (22-30) mmol/L BUN 64 H (9-20) mg/dL Creatinine 3.15 H (0.66-1.25) mg/dL Glucose 182 H (74-99) mg/dL POC Glucose (mg/dL) 240 H (75-99) mg/dL Plasma Lactic Acid Karlo (0.7-2.0) mmol/L Calcium (8.4-10.2) mg/dL Lactate Dehydrogenase (313-618) U/L Troponin I (0.000-0.034) ng/mL Total Protein 6.2 L (6.3-8.2) g/dL Albumin 3.3 L (3.5-5.0) g/dL HDL Cholesterol 65 H (40-60) mg/dL Procalcitonin (0.02-0.09) ng/mL Urine Protein (Negative) Urine Glucose (UA) (Negative) Urine Blood (Negative) Urine Bacteria (None) /hpf Urine Mucus (None) /hpf 08/14/20 08/14/20 Range/Units 06:11 06:56 RBC (4.30-5.90) m/uL Hgb (13.0-17.5) gm/dL Hct (39.0-53.0) % APTT (22.0-30.0) sec D-Dimer (<0.60) mg/L FEU Sodium (137-145) mmol/L Carbon Dioxide (22-30) mmol/L BUN (9-20) mg/dL Creatinine (0.66-1.25) mg/dL Glucose (74-99) mg/dL POC Glucose (mg/dL) 156 H 116 H (75-99) mg/dL Plasma Lactic Acid Karlo (0.7-2.0) mmol/L Calcium (8.4-10.2) mg/dL Lactate Dehydrogenase (313-618) U/L Troponin I (0.000-0.034) ng/mL Total Protein (6.3-8.2) g/dL Albumin (3.5-5.0) g/dL HDL Cholesterol (40-60) mg/dL Procalcitonin (0.02-0.09) ng/mL Urine Protein (Negative) Urine Glucose (UA) (Negative) Urine Blood (Negative) Urine Bacteria (None) /hpf Urine Mucus (None) /hpf Assessment and Plan Assessment: Assessment #1 acute non-ST elevation myocardial infarction #2 hypertension #3 dyslipidemia Plan #1 continue the current medical regimen #2 increase the dose of Lipitor #3 follow-up with the echo and carotid duplex study #4 follow-up with the patient
[2020-08-14] MEDS ORDERED: MD COMMUNICATION TO PHARMACY 1 EACH MISC PO ONE (07:55)
[2020-08-14 08:11] LABS: Glucose,Whole Blood 114 mg/dL (75-99)
[2020-08-14] MEDS: Acetaminophen-Codeine 300-30mg TAB PO PRN (08:17)
[2020-08-14] MEDS: PANTOPRAZOLE 40 MG TABLET PO SCH (08:17)
[2020-08-14] MEDS: ATORVASTATIN 80 MG TAB PO SCH (08:18)
[2020-08-14] MEDS: lisinopriL 5 MG TAB PO SCH (08:18)
[2020-08-14] MEDS: METOPROLOL TARTRATE 25 MG TAB PO SCH ×2 (08:18→21:13)
[2020-08-14] MEDS ORDERED: ATORVASTATIN 20 MG TAB PO SCH (09:00)
[2020-08-14] MEDS ORDERED: ASPIRIN 325 MG TAB PO SCH (09:00)
[2020-08-14] MEDS ORDERED: VITAMIN D3 PO SCH (09:00)
--- NOTE | 2020-08-14 09:47 | US ---
EXAMINATION TYPE: US carotid duplex BILAT DATE OF EXAM: 08/14/2020 COMPARISON: NONE CLINICAL HISTORY: Pre-Op Cardiac Surgery. Diabetic, smoker x 45 years; PAD with 2 left toes amputated EXAM MEASUREMENTS: RIGHT: Peak Systolic Velocity (PSV) cm/sec ----- Right CCA: 66.7 ----- Right ICA: 583.2 ----- Right ECA: 96.3 ICA/CCA ratio: 8.7 RIGHT: End Diastole cm/sec ----- Right CCA: 11.5 ----- Right ICA: 237.7 ----- Right ECA: 15.5 LEFT: Peak Systolic Velocity (PSV) cm/sec ----- Left CCA: 74.8 ----- Left ICA: 258.1 ----- Left ECA: 280.0 ICA/CCA ratio: 3.4 LEFT: End Diastole cm/sec ----- Left CCA: 28.6 ----- Left ICA: 88.1 ----- Left ECA: 27.8 VERTEBRALS (direction of flow): Right Vertebral: Retrograde Left Vertebral: Retrograde flow suggested and color flow only seen proximally Rhythm: Normal Severe Right ICA stenosis and moderate Left ICA stenosis. Patient's RN, Dominique, was notified of these findings at exam's end.. IMPRESSION: Hemodynamic significant stenosis of the proximal internal carotid artery on the right co rresponding to greater than 70% diameter reduction. Hemodynamic significant stenosis of the proximal internal carotid artery on the left corresponds to approximately at least 50-69% diameter stenosis Po ssible retrograde flow in the vertebral arteries although technologist reports a technically difficul t exam. Criteria for Assigning % of Stenosis / Diameter reduction (Estimation based on the indirect measurements of the internal carotid artery velocities (ICA PSV). 1. Normal (no stenosis)=ICA PSV < 125 cm/s: ratio < 2.0: ICA EDV<40 cm/s. 2. Less than 50% stenosis=ICA PSV < 125 cm/s: ratio < 2.0: ICA EDV<40 cm/s. 3. 50 to 69% stenosis=ICA PSV of 125 to 230 cm/s: ration 2.0 ? 4.0: ICA EDV 40-100 cm/s. 4. Greater than 70% stenosis to near occlusion= ICA PSV > 230 cm/s: ratio > 4.0: ICA EDV > 100 cm/s. 5. Near occlusion= ICA PSV velocities may be low or undetectable: variable ratio and ICA EDV. 6. Total occlusion=unable to detect flow.
[2020-08-14 09:53] LABS: Glucose,Whole Blood 269 mg/dL (75-99)
--- NOTE | 2020-08-14 09:55 | P.CNPUL ---
History of Present Illness Consult date: 08/14/20 Requesting physician: Juan Antonio Chávez Reason for consult: other (Critical care management) Chief complaint: Body fatigue, weakness, shortness of breath History of present illness: This is a very pleasant 59-year-old gentleman who follows with Dr. Abbott as his primary care provider. He has history of diabetes mellitus, hypertension, hyperlipidemia, chronic kidney disease stage IV, chronic anemia, diabetic neuropathy, coronary artery disease with previous PCI in 2004. He presented here to the emergency room yesterday with complaints of body ache and fatigue. Some shortness of breath. No specific chest pain. He was found however to have significant ST and T wave abnormalities in the anterior lateral leads as well as elevated troponins. He was taken to the cardiac [facility] last evening and was found to have significant triple-vessel disease. There is a 95% middle right ear lesion, 60-70% stenosis of the OM1, 100% stenosis of the OM 2, 80% stenosis of the mid circumflex and 85% stenosis of the RCA. He has recommended coronary artery bypass surgery. Surgical consult pending. He is seen today in consultation in the ICU. He is currently awake and alert in no acute distress. Denies any shortness of breath, chest pain, palpitations lightheadedness or dizziness. No arm discomfort. He is maintaining O2 saturation in the 90s on room air. He has a 0.9 normal saline at 100 ML's per hour. Insulin drip is currently off. Heparin drip per weight-based protocol. Chest x-ray revealed no acute cardiopulmonary process. He does have a significant 40+ year smoking history. Bedside spirometry is pending. White count 10.4. Hemoglobin 8.0. Platelet count 228. INR 1.0. Sodium 134. Potassium 4.3. Creatinine 3.15. Glucose 182. Review of Systems REVIEW OF SYSTEMS: CONSTITUTIONAL: Fatigue, weakness, body aches. Denies any recent significant weight loss or weight gain. EYES: Denies change in vision. EARS, NOSE, MOUTH, THROAT: Denies headaches, denies sore throat. CARDIOVASCULAR: Denies chest pain, palpitations or syncopal episodes. RESPIRATORY: Positive for shortness of breath, no cough, congestion or hemoptysis. GASTROINTESTINAL: Denies change in appetite, denies abdominal pain GENITOURINARY: Denies hematuria, denies infections. MUSKULOSKELETAL: Denies pain, denies swelling. INTEGUMENTARY: Denies rash, denies eczema. NEUROLOGICAL: Denies recent memory loss, no recent seizure activity. PSYCHIATRIC: Denies anxiety, denies depression. HEMATOLOGIC/LYMPHATIC: Denies anemia, denies enlarged lymph nodes. Past Medical History Past Medical History: Coronary Artery Disease (CAD), Diabetes Mellitus, Eye Disorder, Hyperlipidemia, Renal Disease Additional Past Medical History / Comment(s): IDDM type I with insulin pump, CKD stage IV, polyneuropathy, dupuytren's bilateral hands, chronic R foot ulcer, chronic bilateral foot pain, chronic low back pain/fracture, R eye cataract History of Any Multi-Drug Resistant Organisms: MRSA Date of last positivie culture/infection: 2014 MDRO Source:: right foot Past Surgical History: Heart Catheterization With Stent, Orthopedic Surgery Additional Past Surgical History / Comment(s): L hand fracture with pins, left 2nd and third toe amputation, colonoscopy, L cataract removal/lens implants Past Anesthesia/Blood Transfusion Reactions: No Reported Reaction Date of Last Stent Placement:: 2014 Past Psychological History: No Psychological Hx Reported Additional Psychological History / Comment(s): Pt resides alone in an apartment. He moved here from [place] last May 2019. 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 He uses no assistive device. He drives. Smoking Status: Current every day smoker Past Alcohol Use History: Occasional Additional Past Alcohol Use History / Comment(s): Pt started smoking in 1975 and is a half ppd smoker. Past Drug Use History: Marijuana - Past Family History Father Family Medical History: Diabetes Mellitus, Vascular Disorder Additional Family Medical History / Comment(s): Father of brain aneurysm. He had type I diabetes and it ran strongly on father's side of family Mother Family Medical History: Vascular Disorder Additional Family Medical History / Comment(s): Mother from a brain aneurysm. Medications and Allergies Home Medications Medication Instructions Recorded Confirmed Type Aspirin EC [Ecotrin Low Dose] 81 mg PO DAILY 01/31/20 08/13/20 History Insulin Aspart (For Pump) [NovoLOG 0.01 unit SQ-PUMP CONTINUOUS 01/31/20 08/13/20 History (For Pump)] Rosuvastatin [Crestor] 10 mg PO DAILY 01/31/20 08/13/20 History Enalapril Maleate [Vasotec] 2.5 mg PO DAILY 08/13/20 08/13/20 History Ferrous Sulfate [Iron (65 MG 325 mg PO Q48H 08/13/20 08/13/20 History Elemental)] Vitamin D3 (Unknown Strength) 1 tab PO DAILY 08/13/20 08/13/20 History Allergies Allergy/AdvReac Type Severity Reaction Status Date / Time No Known Allergies Allergy Verified 08/13/20 19:10 Physical Exam Vitals: Vital Signs Temp Pulse Resp BP Pulse Ox 08/14/20 08:00 98.1 F 72 16 117/79 96 08/14/20 07:00 75 16 114/63 98 08/14/20 06:00 72 14 114/67 96 08/14/20 05:00 75 18 94/57 98 08/14/20 04:00 98.9 F 73 17 103/60 99 08/14/20 03:00 77 18 110/66 99 08/14/20 02:00 77 15 125/70 100 08/14/20 01:00 79 18 141/80 99 08/14/20 00:00 98.8 F 85 20 110/76 99 08/13/20 23:00 102 H 25 H 157/83 99 08/13/20 22:00 105 H 22 166/86 99 08/13/20 21:20 98.6 F 112 H 14 100 08/13/20 18:16 98.5 F 93 18 151/72 100 08/13/20 16:20 98.8 F 92 18 144/70 100 Intake and Output 08/13/20 08/14/20 08/14/20 22:59 06:59 14:59 Intake Total 970 2178.421 350.682 Output Total 250 450 200 Balance 720 1728.421 150.682 Intake: IV 620 800 100 0.9 KVO 20 Sodium Chloride 0.9% 1, 100 800 100 000 ml @ 100 mls/hr IV . Q10H [facility] Rx#:[id number] Intake, IV Titration 128.421 0.682 Amount Heparin Sod,Pork in 0.45% 84.107 NaCl 25,000 unit In 0.45 % NaCl 1 250ml.bag @ 12 UNITS/KG/HR 6.913 mls/hr IV .Q24H [facility] Rx#: [id number] Insulin Regular 100 unit 44.314 0.682 In Sodium Chloride 0.9% 100 ml @ Per Protocol IV .Q0M [facility] Rx#:[id number] Oral 350 1250 250 Output: Urine 250 450 200 Other: Voiding Method Urinal # Voids 1 1 1 Weight 57.606 kg 56.8 kg GENERAL EXAM: Alert, pleasant 59-year-old male patient, appears older than stated age, on room air, comfortable in no apparent distress. HEAD: Normocephalic. EYES: Normal reaction of pupils, equal size. NOSE: Clear with pink turbinates. THROAT: No erythema or exudates. NECK: No masses, no JVD. CHEST: No chest wall deformity. LUNGS: Equal air entry with no crackles, wheeze, rhonchi or dullness. CVS: S1 and S2 normal with no audible murmur, regular rhythm. ABDOMEN: No hepatosplenomegaly, normal bowel sounds, no guarding or rigidity. SPINE: No scoliosis or deformity SKIN: No rashes CENTRAL NERVOUS SYSTEM: No focal deficits, tone is normal in all 4 extremities. EXTREMITIES: Dupuytren's contracture of the hands. Previous amputation of the left second and third toes. There is no peripheral edema. No clubbing, no cyanosis. Peripheral pulses are intact. Results - Laboratory Findings CBC and BMP: 08/14/20 04:29 08/14/20 04:29 PT/INR, D-dimer PT 10.1 sec (9.0-12.0) 08/14/20 04:29 INR 1.0 (<1.2) 08/14/20 04:29 D-Dimer 0.62 mg/L FEU (<0.60) H 08/13/20 16:44 Abnormal lab findings: Abnormal Labs 08/13/20 08/13/20 08/13/20 16:28 16:44 16:44 RBC 3.31 L Hgb 10.6 L Hct 30.2 L APTT D-Dimer Sodium Carbon Dioxide 19 L BUN 67 H Creatinine 3.17 H Glucose 248 H POC Glucose (mg/dL) 287 H Plasma Lactic Acid Karlo Calcium 10.4 H Lactate Dehydrogenase 748 H Troponin I Total Protein Albumin HDL Cholesterol Procalcitonin Urine Protein Urine Glucose (UA) Urine Blood Urine Bacteria Urine Mucus 08/13/20 08/13/20 08/13/20 16:44 16:44 16:44 RBC Hgb Hct APTT D-Dimer Sodium Carbon Dioxide BUN Creatinine Glucose POC Glucose (mg/dL) Plasma Lactic Acid Karlo 4.4 H* Calcium Lactate Dehydrogenase Troponin I 7.390 H* Total Protein Albumin HDL Cholesterol Procalcitonin 0.43 H Urine Protein Urine Glucose (UA) Urine Blood Urine Bacteria Urine Mucus 08/13/20 08/13/20 08/13/20 16:44 17:35 21:11 RBC Hgb Hct APTT D-Dimer 0.62 H Sodium Carbon Dioxide BUN Creatinine Glucose POC Glucose (mg/dL) 505 H Plasma Lactic Acid Karlo Calcium Lactate Dehydrogenase Troponin I Total Protein Albumin HDL Cholesterol Procalcitonin Urine Protein 2+ H Urine Glucose (UA) 4+ H Urine Blood Small H Urine Bacteria Occasional H Urine Mucus Rare H 08/13/20 08/13/20 08/13/20 21:13 21:58 22:38 RBC Hgb Hct APTT D-Dimer Sodium Carbon Dioxide BUN Creatinine Glucose POC Glucose (mg/dL) 519 H 506 H Plasma Lactic Acid Kalro Calcium Lactate Dehydrogenase Troponin I 6.580 H* Total Protein Albumin HDL Cholesterol Procalcitonin Urine Protein Urine Glucose (UA) Urine Blood Urine Bacteria Urine Mucus 08/13/20 08/14/20 08/14/20 23:56 00:10 00:10 RBC Hgb Hct APTT 32.7 H D-Dimer Sodium Carbon Dioxide BUN Creatinine Glucose POC Glucose (mg/dL) 435 H Plasma Lactic Acid Karlo Calcium Lactate Dehydrogenase Troponin I 4.980 H* Total Protein Albumin HDL Cholesterol Procalcitonin Urine Protein Urine Glucose (UA) Urine Blood Urine Bacteria Urine Mucus 08/14/20 08/14/20 08/14/20 00:52 01:54 03:06 RBC Hgb Hct APTT D-Dimer Sodium Carbon Dioxide BUN Creatinine Glucose POC Glucose (mg/dL) 341 H 170 H 55 L Plasma Lactic Acid Karlo Calcium Lactate Dehydrogenase Troponin I Total Protein Albumin HDL Cholesterol Procalcitonin Urine Protein Urine Glucose (UA) Urine Blood Urine Bacteria Urine Mucus 08/14/20 08/14/20 08/14/20 03:34 03:55 04:29 RBC 2.56 L Hgb 8.0 L D Hct 23.6 L APTT D-Dimer Sodium Carbon Dioxide BUN Creatinine Glucose POC Glucose (mg/dL) 44 L 106 H Plasma Lactic Acid Karlo Calcium Lactate Dehydrogenase Troponin I Total Protein Albumin HDL Cholesterol Procalcitonin Urine Protein Urine Glucose (UA) Urine Blood Urine Bacteria Urine Mucus 08/14/20 08/14/20 08/14/20 04:29 04:29 04:54 RBC Hgb Hct APTT 120.9 H* D-Dimer Sodium 134 L Carbon Dioxide BUN 64 H Creatinine 3.15 H Glucose 182 H POC Glucose (mg/dL) 240 H Plasma Lactic Acid Karlo Calcium Lactate Dehydrogenase Troponin I Total Protein 6.2 L Albumin 3.3 L HDL Cholesterol 65 H Procalcitonin Urine Protein Urine Glucose (UA) Urine Blood Urine Bacteria Urine Mucus 08/14/20 08/14/20 08/14/20 06:11 06:56 08:10 RBC Hgb Hct APTT D-Dimer Sodium Carbon Dioxide BUN Creatinine Glucose POC Glucose (mg/dL) 156 H 116 H 114 H Plasma Lactic Acid Karlo Calcium Lactate Dehydrogenase Troponin I Total Protein Albumin HDL Cholesterol Procalcitonin Urine Protein Urine Glucose (UA) Urine Blood Urine Bacteria Urine Mucus - Diagnostic Findings Chest x-ray: image reviewed (No acute cardiopulmonary process.) Assessment and Plan Assessment: 1 Acute non-ST segment elevation myocardial infarction in a patient found to have severe coronary artery disease. 95% stenosis to the mid LAD, 60-70 % percent stenosis to the OM1, 100% stenosis OM 2, 80% stenosis to the mid circumflex and 85% stenosis of the RCA. 2 History of coronary artery disease with stent placements to the proximal and mid RCA in 2004 3 Diabetes mellitus, type I on an insulin pump in the outpatient setting 4 Diabetic neuropathy 5 Chronic kidney disease stage IV, current creatinine 3.15 6 Acute on chronic anemia, current hemoglobin 8.0 7 Peripheral vascular disease 8 Previous amputation of the left second and third toe 9 Dupuytren's bilateral hands 10 Chronic and ongoing tobacco dependence Plan: The patient was seen and evaluated by Dr. Lackey Chest x-ray, labs reviewed Bedside spirometry pending Educated regarding the importance of complete smoking cessation Cardiothoracic consult pending Echocardiogram pending Continued on a heparin drip for now Continue to monitor closely in the ICU We will continue to follow and make further recommendations based on his clinical status I, the cosigning physician, performed a history & physical examination of the [facility]. Lungs sounds are clear, diminished. Maintaining good O2 saturations in the 90s on room air. I discussed the assessment and plan of care with my nurse practitioner, Briseyda Moran. I attest to the above consultation as dictated by her.
--- NOTE | 2020-08-14 10:30 | P.GSCN ---
History of Present Illness Consult date: 08/14/20 Reason for Consult: Triple-vessel coronary artery disease Requesting physician: Joni Rivera History of present illness: This is a 59-year-old gentleman who follows on an outpatient basis with Dr. Roach for primary care. 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 He presented to [facility] emergency room yesterday with complaints of all over body aches beginning at 2 AM, mostly confined to his arms and shoulders, associated with shortness of breath, unrelieved with rest or position changes. He stated he had no pain medication in the house. He became concerned with his symptoms and was worried about Covid so he called EMS. In the emergency room chest x-ray was obtained demonstrating no active cardiopulmonary process. EKG demonstrated normal sinus rhythm with T- wave inversion in V2 through V6. His pain was relieved with administration of IV morphine. Lab work demonstrated white blood cell count 7.0, hemoglobin 10.6, creatinine 3.17 with BUN 67, lactic acid 4.4, pro-calcitonin 0.43, BNP 12,800, and troponin 7.3 with second troponin 6.5 and third troponin 4.9. Rapid Covid test was negative. The patient was diagnosed with non-STEMI and taken to the [facility] by Dr. Rivera last night which revealed mid LAD stenosis 95%, OM1 60- 70%, OM to 100%, mid circumflex 80%, and mid RCA 85%. He was placed on IV heparin and transferred to the intensive care unit for further monitoring and evaluation with consultation placed to Dr. Chávez from cardiothoracic surgery for surgical revascularization recommendations. Review of Systems - Constitutional Constitutional Comment(s): Review of systems was completed and was negative except as noted - Cardiovascular Reports as per HPI, Reports chest pain, Reports dyspnea on exertion, Reports shortness of breath Past Medical History Past Medical History: Coronary Artery Disease (CAD), Chest Pain / Angina, Diabetes Mellitus, Eye Disorder, Hyperlipidemia, Hypertension, Myocardial Infarction (TN), Renal Disease, Vascular Disorder Additional Past Medical History / Comment(s): IDDM type I with insulin pump, CKD stage IV, polyneuropathy, dupuytren's bilateral hands, chronic R foot ulcer, chronic bilateral foot pain, chronic low back pain/fracture, R eye cataract History of Any Multi-Drug Resistant Organisms: MRSA Year Discovered:: 2014 MDRO Source:: right foot Past Surgical History: Heart Catheterization With Stent, Orthopedic Surgery Additional Past Surgical History / Comment(s): L hand fracture with pins, left 2nd and third toe amputation, colonoscopy, L cataract removal/lens implants Past Anesthesia/Blood Transfusion Reactions: No Reported Reaction Date of Last Stent Placement:: 2014 Past Psychological History: No Psychological Hx Reported Additional Psychological History / Comment(s): Pt resides alone in an apartment. He moved here from [place] last May 2019. 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 He uses no assistive device. He drives. Smoking Status: Current every day smoker Past Alcohol Use History: Occasional Additional Past Alcohol Use History / Comment(s): Pt started smoking in 1975 and is a half ppd smoker. Past Drug Use History: Marijuana - Past Family History Father Family Medical History: Coronary Artery Disease (CAD), Diabetes Mellitus, Vascular Disorder Additional Family Medical History / Comment(s): Father of brain aneurysm. He had type I diabetes and it ran strongly on father's side of family. Father had CABG in his early 50s Mother Family Medical History: Vascular Disorder Additional Family Medical History / Comment(s): Mother from a brain aneurysm. Brother(s) Family Medical History: COPD, Coronary Artery Disease (CAD) Additional Family Medical History / Comment(s): Brother had CABG in his early 50s Daughter(s) Family Medical History: Renal Disease Additional Family Medical History / Comment(s): Daughter of kidney disease Medications and Allergies Home Medications Medication Instructions Recorded Confirmed Type Aspirin EC [Ecotrin Low Dose] 81 mg PO DAILY 01/31/20 08/13/20 History Insulin Aspart (For Pump) [NovoLOG 0.01 unit SQ-PUMP CONTINUOUS 01/31/20 08/13/20 History (For Pump)] Rosuvastatin [Crestor] 10 mg PO DAILY 01/31/20 08/13/20 History Enalapril Maleate [Vasotec] 2.5 mg PO DAILY 08/13/20 08/13/20 History Ferrous Sulfate [Iron (65 MG 325 mg PO Q48H 08/13/20 08/13/20 History Elemental)] Vitamin D3 (Unknown Strength) 1 tab PO DAILY 08/13/20 08/13/20 History Allergies Allergy/AdvReac Type Severity Reaction Status Date / Time No Known Allergies Allergy Verified 08/13/20 19:10 Surgical - Exam Vital Signs Temp Pulse Resp BP Pulse Ox 98.8 F 92 18 144/70 100 08/13/20 16:20 08/13/20 16:20 08/13/20 16:20 08/13/20 16:20 08/13/20 16:20 - General well developed, well nourished, no distress, no pain, chronically ill - Eyes normal ocular movement - ENT no hearing loss - Neck no masses, no bruits, trachea midline - Respiratory Lungs sounds diminished bilaterally. Respirations even, nonlabored. Currently on room air with oxygen saturation 96%. No chest wall deformities. No clubbing or cyanosis present. - Cardiovascular S1, S2 present. Regular rate and rhythm, sinus rhythm on telemetry. Palpable peripheral pulses bilaterally. No edema present. No calf pain or tenderness noted. - Abdomen Abdomen: soft, non tender, bowel sounds - Genitourinary Deferred - Rectum Deferred - Integumentary no rash, no growths - Neurologic normal coordination - Musculoskeletal normal posture - Psychiatric oriented to time, oriented to person, oriented to place, speech is normal, memory intact Results - Labs 08/14/20 04:29 08/14/20 04:29 Abnormal Lab Results - Last 24 Hours (Table) 08/13/20 08/13/20 08/13/20 Range/Units 16:28 16:44 16:44 RBC 3.31 L (4.30-5.90) m/uL Hgb 10.6 L (13.0-17.5) gm/dL Hct 30.2 L (39.0-53.0) % APTT (22.0-30.0) sec D-Dimer (<0.60) mg/L FEU Sodium (137-145) mmol/L Carbon Dioxide 19 L (22-30) mmol/L BUN 67 H (9-20) mg/dL Creatinine 3.17 H (0.66-1.25) mg/dL Glucose 248 H (74-99) mg/dL POC Glucose (mg/dL) 287 H (75-99) mg/dL Plasma Lactic Acid Karlo (0.7-2.0) mmol/L Calcium 10.4 H (8.4-10.2) mg/dL Lactate Dehydrogenase 748 H (313-618) U/L Troponin I (0.000-0.034) ng/mL Total Protein (6.3-8.2) g/dL Albumin (3.5-5.0) g/dL HDL Cholesterol (40-60) mg/dL Procalcitonin (0.02-0.09) ng/mL Urine Protein (Negative) Urine Glucose (UA) (Negative) Urine Blood (Negative) Urine Bacteria (None) /hpf Urine Mucus (None) /hpf 08/13/20 08/13/20 08/13/20 Range/Units 16:44 16:44 16:44 RBC (4.30-5.90) m/uL Hgb (13.0-17.5) gm/dL Hct (39.0-53.0) % APTT (22.0-30.0) sec D-Dimer (<0.60) mg/L FEU Sodium (137-145) mmol/L Carbon Dioxide (22-30) mmol/L BUN (9-20) mg/dL Creatinine (0.66-1.25) mg/dL Glucose (74-99) mg/dL POC Glucose (mg/dL) (75-99) mg/dL Plasma Lactic Acid Karlo 4.4 H* (0.7-2.0) mmol/L Calcium (8.4-10.2) mg/dL Lactate Dehydrogenase (313-618) U/L Troponin I 7.390 H* (0.000-0.034) ng/mL Total Protein (6.3-8.2) g/dL Albumin (3.5-5.0) g/dL HDL Cholesterol (40-60) mg/dL Procalcitonin 0.43 H (0.02-0.09) ng/mL Urine Protein (Negative) Urine Glucose (UA) (Negative) Urine Blood (Negative) Urine Bacteria (None) /hpf Urine Mucus (None) /hpf 08/13/20 08/13/20 08/13/20 Range/Units 16:44 17:35 21:11 RBC (4.30-5.90) m/uL Hgb (13.0-17.5) gm/dL Hct (39.0-53.0) % APTT (22.0-30.0) sec D-Dimer 0.62 H (<0.60) mg/L FEU Sodium (137-145) mmol/L Carbon Dioxide (22-30) mmol/L BUN (9-20) mg/dL Creatinine (0.66-1.25) mg/dL Glucose (74-99) mg/dL POC Glucose (mg/dL) 505 H (75-99) mg/dL Plasma Lactic Acid Karlo (0.7-2.0) mmol/L Calcium (8.4-10.2) mg/dL Lactate Dehydrogenase (313-618) U/L Troponin I (0.000-0.034) ng/mL Total Protein (6.3-8.2) g/dL Albumin (3.5-5.0) g/dL HDL Cholesterol (40-60) mg/dL Procalcitonin (0.02-0.09) ng/mL Urine Protein 2+ H (Negative) Urine Glucose (UA) 4+ H (Negative) Urine Blood Small H (Negative) Urine Bacteria Occasional H (None) /hpf Urine Mucus Rare H (None) /hpf 08/13/20 08/13/20 08/13/20 Range/Units 21:13 21:58 22:38 RBC (4.30-5.90) m/uL Hgb (13.0-17.5) gm/dL Hct (39.0-53.0) % APTT (22.0-30.0) sec D-Dimer (<0.60) mg/L FEU Sodium (137-145) mmol/L Carbon Dioxide (22-30) mmol/L BUN (9-20) mg/dL Creatinine (0.66-1.25) mg/dL Glucose (74-99) mg/dL POC Glucose (mg/dL) 519 H 506 H (75-99) mg/dL Plasma Lactic Acid Karlo (0.7-2.0) mmol/L Calcium (8.4-10.2) mg/dL Lactate Dehydrogenase (313-618) U/L Troponin I 6.580 H* (0.000-0.034) ng/mL Total Protein (6.3-8.2) g/dL Albumin (3.5-5.0) g/dL HDL Cholesterol (40-60) mg/dL Procalcitonin (0.02-0.09) ng/mL Urine Protein (Negative) Urine Glucose (UA) (Negative) Urine Blood (Negative) Urine Bacteria (None) /hpf Urine Mucus (None) /hpf 08/13/20 08/14/20 08/14/20 Range/Units 23:56 00:10 00:10 RBC (4.30-5.90) m/uL Hgb (13.0-17.5) gm/dL Hct (39.0-53.0) % APTT 32.7 H (22.0-30.0) sec D-Dimer (<0.60) mg/L FEU Sodium (137-145) mmol/L Carbon Dioxide (22-30) mmol/L BUN (9-20) mg/dL Creatinine (0.66-1.25) mg/dL Glucose (74-99) mg/dL POC Glucose (mg/dL) 435 H (75-99) mg/dL Plasma Lactic Acid Karlo (0.7-2.0) mmol/L Calcium (8.4-10.2) mg/dL Lactate Dehydrogenase (313-618) U/L Troponin I 4.980 H* (0.000-0.034) ng/mL Total Protein (6.3-8.2) g/dL Albumin (3.5-5.0) g/dL HDL Cholesterol (40-60) mg/dL Procalcitonin (0.02-0.09) ng/mL Urine Protein (Negative) Urine Glucose (UA) (Negative) Urine Blood (Negative) Urine Bacteria (None) /hpf Urine Mucus (None) /hpf 08/14/20 08/14/20 08/14/20 Range/Units 00:52 01:54 03:06 RBC (4.30-5.90) m/uL Hgb (13.0-17.5) gm/dL Hct (39.0-53.0) % APTT (22.0-30.0) sec D-Dimer (<0.60) mg/L FEU Sodium (137-145) mmol/L Carbon Dioxide (22-30) mmol/L BUN (9-20) mg/dL Creatinine (0.66-1.25) mg/dL Glucose (74-99) mg/dL POC Glucose (mg/dL) 341 H 170 H 55 L (75-99) mg/dL Plasma Lactic Acid Karlo (0.7-2.0) mmol/L Calcium (8.4-10.2) mg/dL Lactate Dehydrogenase (313-618) U/L Troponin I (0.000-0.034) ng/mL Total Protein (6.3-8.2) g/dL Albumin (3.5-5.0) g/dL HDL Cholesterol (40-60) mg/dL Procalcitonin (0.02-0.09) ng/mL Urine Protein (Negative) Urine Glucose (UA) (Negative) Urine Blood (Negative) Urine Bacteria (None) /hpf Urine Mucus (None) /hpf 08/14/20 08/14/20 08/14/20 Range/Units 03:34 03:55 04:29 RBC 2.56 L (4.30-5.90) m/uL Hgb 8.0 L D (13.0-17.5) gm/dL Hct 23.6 L (39.0-53.0) % APTT (22.0-30.0) sec D-Dimer (<0.60) mg/L FEU Sodium (137-145) mmol/L Carbon Dioxide (22-30) mmol/L BUN (9-20) mg/dL Creatinine (0.66-1.25) mg/dL Glucose (74-99) mg/dL POC Glucose (mg/dL) 44 L 106 H (75-99) mg/dL Plasma Lactic Acid Karlo (0.7-2.0) mmol/L Calcium (8.4-10.2) mg/dL Lactate Dehydrogenase (313-618) U/L Troponin I (0.000-0.034) ng/mL Total Protein (6.3-8.2) g/dL Albumin (3.5-5.0) g/dL HDL Cholesterol (40-60) mg/dL Procalcitonin (0.02-0.09) ng/mL Urine Protein (Negative) Urine Glucose (UA) (Negative) Urine Blood (Negative) Urine Bacteria (None) /hpf Urine Mucus (None) /hpf 08/14/20 08/14/20 08/14/20 Range/Units 04:29 04:29 04:54 RBC (4.30-5.90) m/uL Hgb (13.0-17.5) gm/dL Hct (39.0-53.0) % APTT 120.9 H* (22.0-30.0) sec D-Dimer (<0.60) mg/L FEU Sodium 134 L (137-145) mmol/L Carbon Dioxide (22-30) mmol/L BUN 64 H (9-20) mg/dL Creatinine 3.15 H (0.66-1.25) mg/dL Glucose 182 H (74-99) mg/dL POC Glucose (mg/dL) 240 H (75-99) mg/dL Plasma Lactic Acid Karlo (0.7-2.0) mmol/L Calcium (8.4-10.2) mg/dL Lactate Dehydrogenase (313-618) U/L Troponin I (0.000-0.034) ng/mL Total Protein 6.2 L (6.3-8.2) g/dL Albumin 3.3 L (3.5-5.0) g/dL HDL Cholesterol 65 H (40-60) mg/dL Procalcitonin (0.02-0.09) ng/mL Urine Protein (Negative) Urine Glucose (UA) (Negative) Urine Blood (Negative) Urine Bacteria (None) /hpf Urine Mucus (None) /hpf 08/14/20 08/14/20 08/14/20 Range/Units 06:11 06:56 08:10 RBC (4.30-5.90) m/uL Hgb (13.0-17.5) gm/dL Hct (39.0-53.0) % APTT (22.0-30.0) sec D-Dimer (<0.60) mg/L FEU Sodium (137-145) mmol/L Carbon Dioxide (22-30) mmol/L BUN (9-20) mg/dL Creatinine (0.66-1.25) mg/dL Glucose (74-99) mg/dL POC Glucose (mg/dL) 156 H 116 H 114 H (75-99) mg/dL Plasma Lactic Acid Karlo (0.7-2.0) mmol/L Calcium (8.4-10.2) mg/dL Lactate Dehydrogenase (313-618) U/L Troponin I (0.000-0.034) ng/mL Total Protein (6.3-8.2) g/dL Albumin (3.5-5.0) g/dL HDL Cholesterol (40-60) mg/dL Procalcitonin (0.02-0.09) ng/mL Urine Protein (Negative) Urine Glucose (UA) (Negative) Urine Blood (Negative) Urine Bacteria (None) /hpf Urine Mucus (None) /hpf 08/14/20 Range/Units 09:52 RBC (4.30-5.90) m/uL Hgb (13.0-17.5) gm/dL Hct (39.0-53.0) % APTT (22.0-30.0) sec D-Dimer (<0.60) mg/L FEU Sodium (137-145) mmol/L Carbon Dioxide (22-30) mmol/L BUN (9-20) mg/dL Creatinine (0.66-1.25) mg/dL Glucose (74-99) mg/dL POC Glucose (mg/dL) 269 H (75-99) mg/dL Plasma Lactic Acid Karlo (0.7-2.0) mmol/L Calcium (8.4-10.2) mg/dL Lactate Dehydrogenase (313-618) U/L Troponin I (0.000-0.034) ng/mL Total Protein (6.3-8.2) g/dL Albumin (3.5-5.0) g/dL HDL Cholesterol (40-60) mg/dL Procalcitonin (0.02-0.09) ng/mL Urine Protein (Negative) Urine Glucose (UA) (Negative) Urine Blood (Negative) Urine Bacteria (None) /hpf Urine Mucus (None) /hpf Diabetes panel 08/13/20 08/14/20 Range/Units 16:44 04:29 Sodium 137 134 L (137-145) mmol/L Potassium 3.9 4.3 (3.5-5.1) mmol/L Chloride 104 107 (98-107) mmol/L Carbon Dioxide 19 L 23 (22-30) mmol/L BUN 67 H 64 H (9-20) mg/dL Creatinine 3.17 H 3.15 H (0.66-1.25) mg/dL Glucose 248 H 182 H (74-99) mg/dL Calcium 10.4 H 8.6 (8.4-10.2) mg/dL AST 53 39 (17-59) U/L ALT 32 18 (4-49) U/L Alkaline Phosphatase 125 90 (38-126) U/L Total Protein 8.2 6.2 L (6.3-8.2) g/dL Albumin 4.9 3.3 L (3.5-5.0) g/dL Triglycerides 55 (<150) mg/dL HDL Cholesterol 65 H (40-60) mg/dL Thyroid panel 08/14/20 Range/Units 04:29 TSH 0.830 (0.465-4.680) mIU/L Calcium panel 08/13/20 08/14/20 Range/Units 16:44 04:29 Calcium 10.4 H 8.6 (8.4-10.2) mg/dL Albumin 4.9 3.3 L (3.5-5.0) g/dL Pituitary panel 08/13/20 08/14/20 08/14/20 Range/Units 16:44 04:29 04:29 Sodium 137 134 L (137-145) mmol/L Potassium 3.9 4.3 (3.5-5.1) mmol/L Chloride 104 107 (98-107) mmol/L Carbon Dioxide 19 L 23 (22-30) mmol/L BUN 67 H 64 H (9-20) mg/dL Creatinine 3.17 H 3.15 H (0.66-1.25) mg/dL Glucose 248 H 182 H (74-99) mg/dL Calcium 10.4 H 8.6 (8.4-10.2) mg/dL TSH 0.830 (0.465-4.680) mIU/L Adrenal panel 08/13/20 08/14/20 Range/Units 16:44 04:29 Sodium 137 134 L (137-145) mmol/L Potassium 3.9 4.3 (3.5-5.1) mmol/L Chloride 104 107 (98-107) mmol/L Carbon Dioxide 19 L 23 (22-30) mmol/L BUN 67 H 64 H (9-20) mg/dL Creatinine 3.17 H 3.15 H (0.66-1.25) mg/dL Glucose 248 H 182 H (74-99) mg/dL Calcium 10.4 H 8.6 (8.4-10.2) mg/dL Total Bilirubin 0.4 0.4 (0.2-1.3) mg/dL AST 53 39 (17-59) U/L ALT 32 18 (4-49) U/L Alkaline Phosphatase 125 90 (38-126) U/L Total Protein 8.2 6.2 L (6.3-8.2) g/dL Albumin 4.9 3.3 L (3.5-5.0) g/dL - Imaging Chest x-ray: report reviewed, image reviewed EKG: image reviewed Assessment and Plan Assessment: 1. Triple-vessel coronary artery disease, non-STEMI this admission 2. History of coronary artery disease with stent placement to the right coronary artery in 2004 3. Hypertension 4. Hyperlipidemia 5. Type 1 insulin-dependent diabetes with insulin pump in place and peripheral neuropathy 6. Chronic kidney disease stage IV with chronic anemia 7. Current tobacco dependence 8. Chronic right foot wound with MRSA infection in 2014 9. 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 Dupuytren's contracture to bilateral hands 11. Occasional EtOH use, 1-2 drinks weekly 12. Occasional marijuana use 13. Family history of premature coronary artery disease with both father and brother having CABG in their early 50s 14. Both parents from brain aneurysm in their 70s 15. Bilateral internal carotid artery stenosis, right greater than 70%, left 5 0-69%, right and left vertebrals with retrograde flow Plan: The patient was seen and examined at the bedside in the intensive care unit. He is currently in no acute distress. Chart/diagnostics were reviewed. The case will be discussed in detail with Dr. Chávez, heart catheterization films will be reviewed with Dr. Chávez. The usual perioperative course of coronary artery bypass surgery was discussed in detail with the patient, risks and benefits were reviewed, all questions were answered to the best of my ability. The patient is agreeable to surgery. Preoperative testing was initiated. Once all testing has been completed STS risk score will be calculated and discussed with patient, however we've already discussed with the patient that he is at high risk for the need for dialysis. Other significant risk factors include his diabetes, smoking history, and carotid disease. Will complete 5 m walk test once ambulatory. Recommend continuing aspirin, statin, beta jaxon therapy. The patient was counseled regarding smoking cessation. Medical management of other comorbidities per primary care service. More recommendations to follow once testing has been completed and surgeon has had the opportunity to review the films. Thank you Dr. Rivera for this consult. We look forward to working with you in the care of your patient. Time with Patient: Greater than 30
[2020-08-14 11:14] LABS: Glucose,Whole Blood 249 mg/dL (75-99)
--- NOTE | 2020-08-14 12:12 | P.PN ---
Subjective 59-year-old male one of Dr. Roach's patient with past medical history of diabetes on insulin pump, history of hypertension, hyperlipidemia, chronic neuropathy who is also noted to have coronary artery disease post PCI and stent placement back in 2004 was also has been having chronic kidney disease taste for. Patient presented to the emergency department today 08/13/2020 complaining of body ache all over his body along with numbness with worsening shortness of breath with nonspecific chest tightness or pressure and claims his neuropathy has been a lot worse he could not feel his feet and hands. His blood sugar has been slightly bit elevated as well. Patient was giving morphine in 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 Rivera surprisingly had multiple vessel disease with 95% blockage in the mid LAD 60-70% blockage of the OM1 100% blockage of the small OM to and 80% mid circumflex with 85% of mid RCA no angioplasty was require the patient will be started on aggressive risk factor modification and management along with consult cardiothoracic for possible CABG. 08/14: Patient evaluated this morning, resting in bed, in no acute distress. Patient is currently undergoing testing for possible coronary artery bypass surgery with the cardiothoracic team. Patient had carotid ultrasound that showed severe right ICA stenosis and moderate left ICA stenosis. Patient became very argumentative and agitated this morning after discussion regarding his insulin pump. Informed patient that the ICU nurse could not go to his pharmacy to hot die picker insulin refills for his insulin pump and family would have to make arrangements to do this. If patient and family are agreeable to this and patien t has a working insulin pump with the refill of insulin, patient may use his pump to manage his own sugar. Objective - Vital Signs Vital signs: Vital Signs Temp 98.1 F 08/14/20 08:00 Pulse 73 08/14/20 11:00 Resp 15 08/14/20 11:00 BP 122/64 08/14/20 11:00 Pulse Ox 98 08/14/20 11:00 Intake & Output 08/13/20 08/14/20 08/14/20 18:59 06:59 18:59 Intake Total 3148.421 997.163 Output Total 700 750 Balance 2448.421 247.163 Weight 57.606 kg 56.8 kg Intake: IV 1420 500 0.9 KVO 20 Sodium Chloride 0.9% 1, 900 500 000 ml @ 100 mls/hr IV . Q10H JACKI Rx#:[id number] Intake, IV Titration 128.421 7.163 Amount Heparin Sod,Pork in 0.45% 84.107 NaCl 25,000 unit In 0.45 % NaCl 1 250ml.bag @ 12 UNITS/KG/HR 6.913 mls/hr IV .Q24H JACKI Rx#: [id number] Insulin Regular 100 unit 44.314 7.163 In Sodium Chloride 0.9% 100 ml @ Per Protocol IV .Q0M JACKI Rx#:[id number] Oral 1600 490 Output: Urine 700 750 Other: Voiding Method Urinal # Voids 1 1 - Exam General Appearance: Alert, no distress, appears stated age. Neck HEENT: Supple, no lymphadenopathy, no thyroid enlargement, no carotid bruits. Lungs: Clear to auscultation without crackles or wheezes no rhonchi, no deformity. Chest Wall: Chest wall normal expansion with deep inspiration no tenderness and no deformity was found on exam, no costochondral pain or discomfort. Heart: Regular rate and rhythm, S1, S2 normal, no murmur, rub or gallop. Back: Symmetric, no curvature, ROM normal, no CVA tenderness. Abdomen: Soft, non-tender, bowel sounds active all four quadrants, no masses, no organomegaly. Extremities: Extremities normal, atraumatic, no cyanosis or edema. Pulses: 2+ and symmetric. Skin: Skin color, texture, tugor normal, no rashes or lesions. Neurologic: Alert oriented x3 cranial nerves II through XII intact, no motor deficit, no abnormal balance or gait. Slight peripheral neuropathy with lack of sensation of the hands and feet. - Labs CBC & Chem 7: 08/14/20 04:29 08/14/20 04:29 Labs: Abnormal Lab Results - Last 24 Hours (Table) 08/13/20 08/13/20 08/13/20 Range/Units 16:28 16:44 16:44 RBC 3.31 L (4.30-5.90) m/uL Hgb 10.6 L (13.0-17.5) gm/dL Hct 30.2 L (39.0-53.0) % APTT (22.0-30.0) sec D-Dimer (<0.60) mg/L FEU Sodium (137-145) mmol/L Carbon Dioxide 19 L (22-30) mmol/L BUN 67 H (9-20) mg/dL Creatinine 3.17 H (0.66-1.25) mg/dL Glucose 248 H (74-99) mg/dL POC Glucose (mg/dL) 287 H (75-99) mg/dL Plasma Lactic Acid Karlo (0.7-2.0) mmol/L Calcium 10.4 H (8.4-10.2) mg/dL Lactate Dehydrogenase 748 H (313-618) U/L Troponin I (0.000-0.034) ng/mL Total Protein (6.3-8.2) g/dL Albumin (3.5-5.0) g/dL HDL Cholesterol (40-60) mg/dL Procalcitonin (0.02-0.09) ng/mL Urine Protein (Negative) Urine Glucose (UA) (Negative) Urine Blood (Negative) Urine Bacteria (None) /hpf Urine Mucus (None) /hpf 08/13/20 08/13/20 08/13/20 Range/Units 16:44 16:44 16:44 RBC (4.30-5.90) m/uL Hgb (13.0-17.5) gm/dL Hct (39.0-53.0) % APTT (22.0-30.0) sec D-Dimer (<0.60) mg/L FEU Sodium (137-145) mmol/L Carbon Dioxide (22-30) mmol/L BUN (9-20) mg/dL Creatinine (0.66-1.25) mg/dL Glucose (74-99) mg/dL POC Glucose (mg/dL) (75-99) mg/dL Plasma Lactic Acid Karlo 4.4 H* (0.7-2.0) mmol/L Calcium (8.4-10.2) mg/dL Lactate Dehydrogenase (313-618) U/L Troponin I 7.390 H* (0.000-0.034) ng/mL Total Protein (6.3-8.2) g/dL Albumin (3.5-5.0) g/dL HDL Cholesterol (40-60) mg/dL Procalcitonin 0.43 H (0.02-0.09) ng/mL Urine Protein (Negative) Urine Glucose (UA) (Negative) Urine Blood (Negative) Urine Bacteria (None) /hpf Urine Mucus (None) /hpf 08/13/20 08/13/20 08/13/20 Range/Units 16:44 17:35 21:11 RBC (4.30-5.90) m/uL Hgb (13.0-17.5) gm/dL Hct (39.0-53.0) % APTT (22.0-30.0) sec D-Dimer 0.62 H (<0.60) mg/L FEU Sodium (137-145) mmol/L Carbon Dioxide (22-30) mmol/L BUN (9-20) mg/dL Creatinine (0.66-1.25) mg/dL Glucose (74-99) mg/dL POC Glucose (mg/dL) 505 H (75-99) mg/dL Plasma Lactic Acid Karlo (0.7-2.0) mmol/L Calcium (8.4-10.2) mg/dL Lactate Dehydrogenase (313-618) U/L Troponin I (0.000-0.034) ng/mL Total Protein (6.3-8.2) g/dL Albumin (3.5-5.0) g/dL HDL Cholesterol (40-60) mg/dL Procalcitonin (0.02-0.09) ng/mL Urine Protein 2+ H (Negative) Urine Glucose (UA) 4+ H (Negative) Urine Blood Small H (Negative) Urine Bacteria Occasional H (None) /hpf Urine Mucus Rare H (None) /hpf 08/13/20 08/13/20 08/13/20 Range/Units 21:13 21:58 22:38 RBC (4.30-5.90) m/uL Hgb (13.0-17.5) gm/dL Hct (39.0-53.0) % APTT (22.0-30.0) sec D-Dimer (<0.60) mg/L FEU Sodium (137-145) mmol/L Carbon Dioxide (22-30) mmol/L BUN (9-20) mg/dL Creatinine (0.66-1.25) mg/dL Glucose (74-99) mg/dL POC Glucose (mg/dL) 519 H 506 H (75-99) mg/dL Plasma Lactic Acid Karlo (0.7-2.0) mmol/L Calcium (8.4-10.2) mg/dL Lactate Dehydrogenase (313-618) U/L Troponin I 6.580 H* (0.000-0.034) ng/mL Total Protein (6.3-8.2) g/dL Albumin (3.5-5.0) g/dL HDL Cholesterol (40-60) mg/dL Procalcitonin (0.02-0.09) ng/mL Urine Protein (Negative) Urine Glucose (UA) (Negative) Urine Blood (Negative) Urine Bacteria (None) /hpf Urine Mucus (None) /hpf 08/13/20 08/14/20 08/14/20 Range/Units 23:56 00:10 00:10 RBC (4.30-5.90) m/uL Hgb (13.0-17.5) gm/dL Hct (39.0-53.0) % APTT 32.7 H (22.0-30.0) sec D-Dimer (<0.60) mg/L FEU Sodium (137-145) mmol/L Carbon Dioxide (22-30) mmol/L BUN (9-20) mg/dL Creatinine (0.66-1.25) mg/dL Glucose (74-99) mg/dL POC Glucose (mg/dL) 435 H (75-99) mg/dL Plasma Lactic Acid Karlo (0.7-2.0) mmol/L Calcium (8.4-10.2) mg/dL Lactate Dehydrogenase (313-618) U/L Troponin I 4.980 H* (0.000-0.034) ng/mL Total Protein (6.3-8.2) g/dL Albumin (3.5-5.0) g/dL HDL Cholesterol (40-60) mg/dL Procalcitonin (0.02-0.09) ng/mL Urine Protein (Negative) Urine Glucose (UA) (Negative) Urine Blood (Negative) Urine Bacteria (None) /hpf Urine Mucus (None) /hpf 08/14/20 08/14/20 08/14/20 Range/Units 00:52 01:54 03:06 RBC (4.30-5.90) m/uL Hgb (13.0-17.5) gm/dL Hct (39.0-53.0) % APTT (22.0-30.0) sec D-Dimer (<0.60) mg/L FEU Sodium (137-145) mmol/L Carbon Dioxide (22-30) mmol/L BUN (9-20) mg/dL Creatinine (0.66-1.25) mg/dL Glucose (74-99) mg/dL POC Glucose (mg/dL) 341 H 170 H 55 L (75-99) mg/dL Plasma Lactic Acid Karlo (0.7-2.0) mmol/L Calcium (8.4-10.2) mg/dL Lactate Dehydrogenase (313-618) U/L Troponin I (0.000-0.034) ng/mL Total Protein (6.3-8.2) g/dL Albumin (3.5-5.0) g/dL HDL Cholesterol (40-60) mg/dL Procalcitonin (0.02-0.09) ng/mL Urine Protein (Negative) Urine Glucose (UA) (Negative) Urine Blood (Negative) Urine Bacteria (None) /hpf Urine Mucus (None) /hpf 08/14/20 08/14/20 08/14/20 Range/Units 03:34 03:55 04:29 RBC 2.56 L (4.30-5.90) m/uL Hgb 8.0 L D (13.0-17.5) gm/dL Hct 23.6 L (39.0-53.0) % APTT (22.0-30.0) sec D-Dimer (<0.60) mg/L FEU Sodium (137-145) mmol/L Carbon Dioxide (22-30) mmol/L BUN (9-20) mg/dL Creatinine (0.66-1.25) mg/dL Glucose (74-99) mg/dL POC Glucose (mg/dL) 44 L 106 H (75-99) mg/dL Plasma Lactic Acid Karlo (0.7-2.0) mmol/L Calcium (8.4-10.2) mg/dL Lactate Dehydrogenase (313-618) U/L Troponin I (0.000-0.034) ng/mL Total Protein (6.3-8.2) g/dL Albumin (3.5-5.0) g/dL HDL Cholesterol (40-60) mg/dL Procalcitonin (0.02-0.09) ng/mL Urine Protein (Negative) Urine Glucose (UA) (Negative) Urine Blood (Negative) Urine Bacteria (None) /hpf Urine Mucus (None) /hpf 08/14/20 08/14/20 08/14/20 Range/Units 04:29 04:29 04:54 RBC (4.30-5.90) m/uL Hgb (13.0-17.5) gm/dL Hct (39.0-53.0) % APTT 120.9 H* (22.0-30.0) sec D-Dimer (<0.60) mg/L FEU Sodium 134 L (137-145) mmol/L Carbon Dioxide (22-30) mmol/L BUN 64 H (9-20) mg/dL Creatinine 3.15 H (0.66-1.25) mg/dL Glucose 182 H (74-99) mg/dL POC Glucose (mg/dL) 240 H (75-99) mg/dL Plasma Lactic Acid Karlo (0.7-2.0) mmol/L Calcium (8.4-10.2) mg/dL Lactate Dehydrogenase (313-618) U/L Troponin I (0.000-0.034) ng/mL Total Protein 6.2 L (6.3-8.2) g/dL Albumin 3.3 L (3.5-5.0) g/dL HDL Cholesterol 65 H (40-60) mg/dL Procalcitonin (0.02-0.09) ng/mL Urine Protein (Negative) Urine Glucose (UA) (Negative) Urine Blood (Negative) Urine Bacteria (None) /hpf Urine Mucus (None) /hpf 08/14/20 08/14/20 08/14/20 Range/Units 06:11 06:56 08:10 RBC (4.30-5.90) m/uL Hgb (13.0-17.5) gm/dL Hct (39.0-53.0) % APTT (22.0-30.0) sec D-Dimer (<0.60) mg/L FEU Sodium (137-145) mmol/L Carbon Dioxide (22-30) mmol/L BUN (9-20) mg/dL Creatinine (0.66-1.25) mg/dL Glucose (74-99) mg/dL POC Glucose (mg/dL) 156 H 116 H 114 H (75-99) mg/dL Plasma Lactic Acid Karlo (0.7-2.0) mmol/L Calcium (8.4-10.2) mg/dL Lactate Dehydrogenase (313-618) U/L Troponin I (0.000-0.034) ng/mL Total Protein (6.3-8.2) g/dL Albumin (3.5-5.0) g/dL HDL Cholesterol (40-60) mg/dL Procalcitonin (0.02-0.09) ng/mL Urine Protein (Negative) Urine Glucose (UA) (Negative) Urine Blood (Negative) Urine Bacteria (None) /hpf Urine Mucus (None) /hpf 08/14/20 08/14/20 Range/Units 09:52 11:13 RBC (4.30-5.90) m/uL Hgb (13.0-17.5) gm/dL Hct (39.0-53.0) % APTT (22.0-30.0) sec D-Dimer (<0.60) mg/L FEU Sodium (137-145) mmol/L Carbon Dioxide (22-30) mmol/L BUN (9-20) mg/dL Creatinine (0.66-1.25) mg/dL Glucose (74-99) mg/dL POC Glucose (mg/dL) 269 H 249 H (75-99) mg/dL Plasma Lactic Acid Karlo (0.7-2.0) mmol/L Calcium (8.4-10.2) mg/dL Lactate Dehydrogenase (313-618) U/L Troponin I (0.000-0.034) ng/mL Total Protein (6.3-8.2) g/dL Albumin (3.5-5.0) g/dL HDL Cholesterol (40-60) mg/dL Procalcitonin (0.02-0.09) ng/mL Urine Protein (Negative) Urine Glucose (UA) (Negative) Urine Blood (Negative) Urine Bacteria (None) /hpf Urine Mucus (None) /hpf Assessment and Plan Plan: 1 non-ST NM: With multiple coronary artery disease involvement patient did not require any angioplasty or stent placement at this point patient will be seen cardiothoracic surgeon for possible need for bypass surgery. Continue secondary prevention. 2 acute kidney injury with acute kidney failure on stage IV chronic kidney disease: Hydration we'll consult nephrology 3 diabetes: Most likely type I on insulin pump will continue patient on Accu- Chek with sliding scales coverage and resume his insulin pump at this point once refill of insulin is obtained by his family 4 hypertension: Has been on enalapril 2.5 mg a day surprisingly is not on any beta jaxon. 5 hyperlipidemia: Resume Crestor at 10 mg daily. 6 chronic advance diabetic peripheral neuropathy: Patient should be on at least a starter of neuropathy medication like gabapentin or Lyrica something highly suggested to be done as an outpatient. 7 mild anemia: Iron supplement and repeat CBC watch for any GI bleed. 8. Bilateral internal carotid artery stenosis. 9 GI prophylaxis: Patient be on pantoprazole 40 mg daily. 10 DVT prophylaxis: Patient will have knee-high RUTHANN hose, heparin The above impression and plan of care have been discussed and directed by signing physician. Debi Sherman nurse practitioner acting as scribe for signing physician.
[2020-08-14 12:16] LABS: Glucose,Whole Blood 175 mg/dL (75-99)
[2020-08-14 12:38] LABS: Basophils % (A) 0 %; Eosinophils # (A) 0.1 k/uL (0-0.7); Eosinophils % (A) 1 %; HCT 25.3 % (39.0-53.0); HGB 8.5 gm/dL (13.0-17.5); Lymphocytes # (A) 2.3 k/uL (1.0-4.8); Lymphocytes % (A) 26 %; MCH 31.8 pg (25.0-35.0); MCHC 33.6 g/dL (31.0-37.0); MCV 94.7 fL (80.0-100.0); Mean Platelet Volume 8.8; Monocytes # (A) 0.5 k/uL (0-1.0); Monocytes % (A) 6 %; Neutrophils # (A) 5.7 k/uL (1.3-7.7); Neutrophils % (A) 65 %; Platelet Count 227 k/uL (150-450); RBC 2.67 m/uL (4.30-5.90); RDW 14.8 % (11.5-15.5); WBC 8.8 k/uL (3.8-10.6)
[2020-08-14 13:15] LABS: Albumin 3.4 g/dL (3.5-5.0); Calcium 8.7 mg/dL (8.4-10.2); Total Bilirubin 0.3 mg/dL (0.2-1.3); Total Protein 6.1 g/dL (6.3-8.2)
[2020-08-14] MEDS: SODIUM CHLORIDE 0.9% 1,000 ML IV SCH ×2 (14:32→20:41)
--- NOTE | 2020-08-14 18:09 | ECHOF ---
Referral Reason:lvfunction MEASUREMENTS -------- HEIGHT: 180.3 cm WEIGHT: 56.7 kg BP: 114/63 IVSd: 1.2 cm (0.6 - 1.1) LVIDd: 3.2 cm (3.9 - 5.3) LVPWd: 1.4 cm (0.6 - 1.1) IVSs: 1.5 cm LVIDs: 2.1 cm LVPWs: 1.5 cm RVIDd: 3.3 cm (< 3.3) LAESV Index (A-L): 26.03 ml/m MV E Phani: 0.78 m/s MV DecT: 259 ms MV A Phani: 0.66 m/s MV E/A Ratio: 1.18 FINDINGS -------- Sinus rhythm. This was a technically adequate study. The left ventricular size is normal. There is mild concentric left ventricular hypertrophy. There is mild global hypokinesis of LV . Overall left ventricular systolic function is mildly impaired w ith, an EF between 45 - 50 %. Distal anterior wall hypokinesis The right ventricle is normal in size. Normal LA size by volume 22+/-6 ml/m2. The right atrial size is normal. Interatrial and interventricular septum intact. There is no evidence of aortic regurgitation. There is no evidence of aortic stenosis. [id number] mitral regurgitation is present. Trace tricuspid regurgitation present. Unable to estimate RVSP due to inadequate TR jet spectral do ppler profile. The pulmonic valve was not well visualized. The aortic root size is normal. Normal inferior vena cava with normal inspiratory collapse consistent with estimated right atrial pre ssure of 5 mmHg. There is no pericardial effusion. CONCLUSIONS -------- 1. The left ventricular size is normal. 2. There is mild concentric left ventricular hypertrophy. 3. There is mild global hypokinesis of LV . 4. Overall left ventricular systolic function is mildly impaired with, an EF between 45 - 50 %. 5. [id number] mitral regurgitation is present. 6. Trace tricuspid regurgitation present. [employer]: Hue Alfonso RDCS
[2020-08-14 19:16] LABS: Hepatitis A Antibody IgM Non-Reactive (Non-Reactive); Hepatitis B Core IgM Non-Reactive (Non-Reactive); Hepatitis B Surface Antigen Non-Reactive (Non-Reactive); Hepatitis C IgG Antibody Non-Reactive (Non-Reactive)
[2020-08-14] MEDS: HEPARIN SOD,PORK IN 0.45% NACL 25,000 UNIT in 0.45% NACL 1 250ML.BAG IV SCH (20:41)
[2020-08-15 03:46] LABS: Basophils % (A) 1 %; Eosinophils # (A) 0.2 k/uL (0-0.7); Eosinophils % (A) 4 %; HCT 21.6 % (39.0-53.0); HGB 7.3 gm/dL (13.0-17.5); Lymphocytes # (A) 2.4 k/uL (1.0-4.8); Lymphocytes % (A) 35 %; MCHC 33.9 g/dL (31.0-37.0); MCV 94.3 fL (80.0-100.0); Mean Platelet Volume 8.4; Monocytes # (A) 0.4 k/uL (0-1.0); Monocytes % (A) 6 %; Neutrophils # (A) 3.6 k/uL (1.3-7.7); Neutrophils % (A) 53 %; Platelet Count 204 k/uL (150-450); RBC 2.29 m/uL (4.30-5.90); RDW 14.8 % (11.5-15.5); WBC 6.8 k/uL (3.8-10.6)
[2020-08-15 04:01] LABS: INR 0.9 (<1.2); Prothrombin Time 9.7 sec (9.0-12.0)
[2020-08-15] MEDS: SODIUM CHLORIDE 0.9% 1,000 ML IV SCH ×2 (06:19→20:12)
[2020-08-15] MEDS: HEPARIN SOD,PORK IN 0.45% NACL 25,000 UNIT in 0.45% NACL 1 250ML.BAG IV SCH (06:41)
[2020-08-15] MEDS: ATORVASTATIN 80 MG TAB PO SCH (08:46)
[2020-08-15] MEDS: PANTOPRAZOLE 40 MG TABLET PO SCH (08:46)
[2020-08-15] MEDS: METOPROLOL TARTRATE 25 MG TAB PO SCH ×2 (08:47→20:12)
[2020-08-15] MEDS: lisinopriL 5 MG TAB PO SCH (08:47)
[2020-08-15 08:49] LABS: Albumin 2.8 g/dL (3.5-5.0); Calcium 8.2 mg/dL (8.4-10.2); Potassium 4.5 mmol/L (3.5-5.1); Total Bilirubin 0.2 mg/dL (0.2-1.3); Total Protein 5.4 g/dL (6.3-8.2)
--- NOTE | 2020-08-15 09:30 | P.PN ---
Subjective Progress Note Date: 08/15/20 Principal diagnosis: Triple-vessel coronary artery disease, non-STEMI this admission, bilateral internal carotid artery stenosis, right greater than 70%, left 50-69%, right and left vertebrals with retrograde flow on carotid dopplers. 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 Denies chest pain or shortness of breath. Remains in normal sinus rhythm and hemodynamically stable. Currently on IV heparin. Preoperative teaching continues. Objective - Vital Signs Vital signs: Vital Signs Temp 98.4 F 08/15/20 08:00 Pulse 80 08/15/20 08:00 Resp 13 08/15/20 08:00 BP 121/71 08/15/20 08:00 Pulse Ox 98 08/15/20 08:00 Intake & Output 08/14/20 08/15/20 08/15/20 18:59 06:59 18:59 Intake Total 6889.849 3884.667 100 Output Total 1100 1500 Balance 899.374 -190.333 100 Weight 57.2 kg Intake: IV 1200 1200 100 Sodium Chloride 0.9% 1, 1200 1200 100 000 ml @ 100 mls/hr IV . Q10H JACKI Rx#:[id number] Intake, IV Titration 69.374 109.667 Amount Heparin Sod,Pork in 0.45% 56.226 109.667 NaCl 25,000 unit In 0.45 % NaCl 1 250ml.bag @ 12 UNITS/KG/HR 6.913 mls/hr IV .Q24H JACKI Rx#: [id number] Insulin Regular 100 unit 13.148 In Sodium Chloride 0.9% 100 ml @ Per Protocol IV .Q0M JACKI Rx#:[id number] Oral 730 Output: Urine 1100 1500 Other: Voiding Method Urinal Urinal # Voids 1 - Constitutional General appearance: Present: cooperative, no acute distress - Respiratory Details: Lungs sounds diminished bilaterally. Respirations even, nonlabored. Currently on room air with oxygen saturation in the high 90s. Able to achieve 2500 mL on his incentive spirometry. - Cardiovascular Details: S1, S2 present. Regular rate and rhythm, sinus rhythm on telemetry. Palpable peripheral pulses bilaterally. No edema present. No calf pain or tenderness noted. - Gastrointestinal Gastrointestinal Comment(s): Abdomen soft, nontender, nondistended. Active bowel sounds present 4 quadrants. Tolerating diet. - Genitourinary Genitourinary Comment(s): Continues to void - Integumentary Integumentary Comment(s): Skin is warm and dry - Neurologic Neurologic: Present: CNII-XII intact - Musculoskeletal Musculoskeletal: Present: strength equal bilaterally - Psychiatric Psychiatric: Present: A&O x's 3, appropriate affect, intact judgment & insight - Allied health notes Allied health notes reviewed: nursing - Labs CBC & Chem 7: 08/15/20 03:29 08/15/20 04:29 Labs: Abnormal Lab Results - Last 24 Hours (Table) 08/14/20 08/14/20 08/14/20 Range/Units 04:29 09:52 11:13 RBC (4.30-5.90) m/uL Hgb (13.0-17.5) gm/dL Hct (39.0-53.0) % APTT (22.0-30.0) sec Sodium (137-145) mmol/L Chloride (98-107) mmol/L Carbon Dioxide (22-30) mmol/L BUN (9-20) mg/dL Creatinine (0.66-1.25) mg/dL Glucose (74-99) mg/dL POC Glucose (mg/dL) 269 H 249 H (75-99) mg/dL Hemoglobin A1c 8.1 H (4.0-6.0) % Calcium (8.4-10.2) mg/dL Total Protein (6.3-8.2) g/dL Albumin (3.5-5.0) g/dL 08/14/20 08/14/20 08/14/20 Range/Units 12:14 12:30 12:30 RBC 2.67 L (4.30-5.90) m/uL Hgb 8.5 L (13.0-17.5) gm/dL Hct 25.3 L (39.0-53.0) % APTT (22.0-30.0) sec Sodium 136 L (137-145) mmol/L Chloride 108 H (98-107) mmol/L Carbon Dioxide (22-30) mmol/L BUN 61 H (9-20) mg/dL Creatinine 3.03 H (0.66-1.25) mg/dL Glucose 144 H (74-99) mg/dL POC Glucose (mg/dL) 175 H (75-99) mg/dL Hemoglobin A1c (4.0-6.0) % Calcium (8.4-10.2) mg/dL Total Protein 6.1 L (6.3-8.2) g/dL Albumin 3.4 L (3.5-5.0) g/dL 08/14/20 08/15/20 08/15/20 Range/Units 20:40 03:29 03:29 RBC 2.29 L (4.30-5.90) m/uL Hgb 7.3 L (13.0-17.5) gm/dL Hct 21.6 L (39.0-53.0) % APTT 79.3 H 56.8 H (22.0-30.0) sec Sodium (137-145) mmol/L Chloride (98-107) mmol/L Carbon Dioxide (22-30) mmol/L BUN (9-20) mg/dL Creatinine (0.66-1.25) mg/dL Glucose (74-99) mg/dL POC Glucose (mg/dL) (75-99) mg/dL Hemoglobin A1c (4.0-6.0) % Calcium (8.4-10.2) mg/dL Total Protein (6.3-8.2) g/dL Albumin (3.5-5.0) g/dL 08/15/20 Range/Units 04:29 RBC (4.30-5.90) m/uL Hgb (13.0-17.5) gm/dL Hct (39.0-53.0) % APTT (22.0-30.0) sec Sodium 136 L (137-145) mmol/L Chloride 113 H (98-107) mmol/L Carbon Dioxide 20 L (22-30) mmol/L BUN 52 H (9-20) mg/dL Creatinine 2.66 H (0.66-1.25) mg/dL Glucose (74-99) mg/dL POC Glucose (mg/dL) (75-99) mg/dL Hemoglobin A1c (4.0-6.0) % Calcium 8.2 L (8.4-10.2) mg/dL Total Protein 5.4 L (6.3-8.2) g/dL Albumin 2.8 L (3.5-5.0) g/dL Microbiology - Last 24 Hours (Table) 08/13/20 21:58 Blood Culture - Preliminary Blood No Growth after 24 hours - Imaging and Cardiology Chest x-ray: report reviewed, image reviewed Heart catheterization and transthoracic echocardiogram films reviewed yesterday with Dr. Chávez as well as carotid Dopplers and lower extremity vein mapping Assessment and Plan Assessment: 1. Triple-vessel coronary artery disease, non-STEMI this admission 2. History of coronary artery disease with stent placement to the right coronary artery in 2004 3. Hypertension 4. Hyperlipidemia, treated, cholesterol 161, LDL 85 5. Type 1 insulin-dependent diabetes with insulin pump in place and peripheral neuropathy, hemoglobin A1c 8.1% 6. Chronic kidney disease stage IV with chronic anemia 7. Current tobacco dependence, FEV1 78% of predicted 8. Chronic right foot wound with MRSA infection in 2014 9. 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 Dupuytren's contracture to bilateral hands 11. Occasional EtOH use, 1-2 drinks weekly 12. Occasional marijuana use 13. Family history of premature coronary artery disease with both father and brother having CABG in their early 50s 14. Both parents from brain aneurysm in their 70s 15. Bilateral internal carotid artery stenosis, right greater than 70%, left 50-69%, right and left vertebrals with retrograde flow Plan: 1. Continue aspirin, statin, beta jaxon therapy 2. Encourage incentive spirometry use 10 times every hour while awake. Smoking cessation encouraged 3. Increase activity, ambulate as tolerated. Will obtain 5 m walk test today 4. Nephrology consulted, appreciate recommendations 5. CTA of the neck to evaluate aortic arch, carotid arteries, subclavian arteries ordered. Will not be completed per radiology until clearance from nephrology 6. Anemia needs to be addressed, would like hemoglobin/hematocrit higher prior to going into surgery 7. Will review heart catheterization films again today with Dr. Mann 8. More recommendations to follow once CTA of the neck has been completed, anemia and kidney disease have been addressed by nephrology 9. Medical management of other comorbidities per primary care service Time with Patient: Greater than 30
--- NOTE | 2020-08-15 10:18 | P.PN ---
Subjective Progress Note Date: 08/15/20 Principal diagnosis: Non-ST PA, acute kidney failure, right-sided severe stenosis of the carotid artery, multiple coronary artery disease and involvement, type 2 diabetes on insulin pump, hypertension, hyperlipidemia and COPD. 59-year-old male one of Dr. Roach's patient with past medical history of diabetes on insulin pump, history of hypertension, hyperlipidemia, chronic dave ropathy who is also noted to have coronary artery disease post PCI and stent placement back in 2004 was also has been having chronic kidney disease taste for. Patient presented to the emergency department today 08/13/2020 complaining of body ache all over his body along with numbness with worsening shortness of breath with nonspecific chest tightness or pressure and claims his neuropathy has been a lot worse he could not feel his feet and hands. His blood sugar has been slightly bit elevated as well. Patient was giving morphine in [facility] apartment started on hydration surprisingly had significant elevated troponin at 7.4 with lactic acid [place] 4[place]4 [place] [address] with CRP of 5 d-dimer 0.6, EKG showed diffuse ST depression in the anterolateral leads with his current symptom with her kidney function is a lot worse initially try to do conservative management patient kept having severe symptoms cardiac cath tech with Dr. Rivera surprisingly had multiple vessel disease with 95% blockage in the mid LAD 60-70% blockage of the OM1 100% blockage of the small OM to and 80% mid circumflex with 85% of mid RCA no angioplasty was require the patient will be started on aggressive risk factor modification and management along with consult cardiothoracic for possible CABG. 08/14: Patient evaluated this morning, resting in bed, in no acute distress. Patient is currently undergoing testing for possible coronary artery bypass surgery with the cardiothoracic team. Patient had carotid ultrasound that showed severe right ICA stenosis and moderate left ICA stenosis. Patient became very argumentative and agitated this morning after discussion regarding his insulin pump. Informed patient that the ICU nurse could not go to his pharmacy to citrus [employer]er insulin refills for his insulin pump and family would have to make arrangements to do this. If patient and family are agreeable to this and patient has a working insulin pump with the refill of insulin, patient may use his pump to manage his own sugar. 08/15: Patient remained ICU, had severe stenosis of the right carotid artery might need carotid endarterectomy, in the meanwhile with the use of dye and his kidney function currently is not able to go for CT of the neck will be waiting until Tuesday. Cardiothoracic surgery indicated that he need multi-vessel CABG and the same time might require carotid endarterectomy the same time such an arra ngement can be probably done early next week. He seen nephrology kidney function slightly better today. Objective - Vital Signs Vital signs: Vital Signs Temp 98.4 F 08/15/20 08:00 Pulse 73 08/15/20 09:00 Resp 18 08/15/20 09:00 BP 121/71 08/15/20 09:00 Pulse Ox 99 08/15/20 09:00 Intake & Output 08/14/20 08/15/20 08/15/20 18:59 06:59 18:59 Intake Total 2504.470 6515.667 200 Output Total 1100 1500 200 Balance 899.374 -190.333 0 Weight 57.2 kg Intake: IV 1200 1200 200 Sodium Chloride 0.9% 1, 1200 1200 200 000 ml @ 100 mls/hr IV . Q10H JACKI Rx#:[id number] Intake, IV Titration 69.374 109.667 Amount Heparin Sod,Pork in 0.45% 56.226 109.667 NaCl 25,000 unit In 0.45 % NaCl 1 250ml.bag @ 12 UNITS/KG/HR 6.913 mls/hr IV .Q24H JACKI Rx#: [id number] Insulin Regular 100 unit 13.148 In Sodium Chloride 0.9% 100 ml @ Per Protocol IV .Q0M JACKI Rx#:[id number] Oral 730 Output: Urine 1100 1500 200 Other: Voiding Method Urinal Urinal # Voids 1 Review of Systems CONSTITUTIONAL: Well-developed no acute respiratory distress. EYES: No icterus sclerae, no conjunctivitis. EARS, NOSE, MOUTH, THROAT, and FACE: No sore throat, lymphadenopathy, carotid bruits or deformity. RESPIRATORY: No SOB cough or wheezes. CARDIOVASCULAR: No CP, Palpitation, PND, Orthopnea, or angina. GASTROINTESTINAL: No Abd pain, Nausea or vomiting, no Diarrhea or constipation, No GI Bleed, no distention or masses. GENITOURINARY: Negative for Hematuria or UTI, no kidney stones. INTEGUMENT/BREAST: Negative for any muscular injury with mild osteoarthritis.. HEMATOLOGIC/LYMPHATIC: Negative for bleed or purpura. MUSCULOSKELTAL: Negative for Myalgia or arthralgia. NEURLOGICAL: No LOC, Sz or syncope, blurred vision dizziness or abnormality.. BEHAVIORAL/PSYCH: Negative. ENDOCRINE: Negative. Physical Exam Vitals: General Appearance: Alert, cooperative, no distress, appears stated age. Neck HEENT: Supple, no lymphadenopathy, no thyroid enlargement, no carotid bruits. Lungs: Clear to auscultation without crackles or wheezes no rhonchi, no deformity. Chest Wall: Chest wall normal expansion with deep inspiration no tenderness and no deformity was found on exam, no costochondral pain or discomfort. Heart: Regular rate and rhythm, S1, S2 normal, no murmur, rub or gallop. Back: Symmetric, no curvature, ROM normal, no CVA tenderness. Abdomen: Soft, non-tender, bowel sounds active all four quadrants, no masses, no organomegaly. Extremities: Extremities normal, atraumatic, no cyanosis or edema. Pulses: 2+ and symmetric. Skin: Skin color, texture, tugor normal, no rashes or lesions. Neurologic: Alert oriented x3 cranial nerves II through XII intact, no motor deficit, no abnormal balance or gait. Slight peripheral neuropathy with lack of sensation of the hands and feet. - Labs CBC & Chem 7: 08/15/20 03:29 08/15/20 04:29 Labs: Abnormal Lab Results - Last 24 Hours (Table) 08/14/20 08/14/20 08/14/20 Range/Units 04:29 11:13 12:14 RBC (4.30-5.90) m/uL Hgb (13.0-17.5) gm/dL Hct (39.0-53.0) % APTT (22.0-30.0) sec Sodium (137-145) mmol/L Chloride (98-107) mmol/L Carbon Dioxide (22-30) mmol/L BUN (9-20) mg/dL Creatinine (0.66-1.25) mg/dL Glucose (74-99) mg/dL POC Glucose (mg/dL) 249 H 175 H (75-99) mg/dL Hemoglobin A1c 8.1 H (4.0-6.0) % Calcium (8.4-10.2) mg/dL Total Protein (6.3-8.2) g/dL Albumin (3.5-5.0) g/dL 08/14/20 08/14/20 08/14/20 Range/Units 12:30 12:30 20:40 RBC 2.67 L (4.30-5.90) m/uL Hgb 8.5 L (13.0-17.5) gm/dL Hct 25.3 L (39.0-53.0) % APTT 79.3 H (22.0-30.0) sec Sodium 136 L (137-145) mmol/L Chloride 108 H (98-107) mmol/L Carbon Dioxide (22-30) mmol/L BUN 61 H (9-20) mg/dL Creatinine 3.03 H (0.66-1.25) mg/dL Glucose 144 H (74-99) mg/dL POC Glucose (mg/dL) (75-99) mg/dL Hemoglobin A1c (4.0-6.0) % Calcium (8.4-10.2) mg/dL Total Protein 6.1 L (6.3-8.2) g/dL Albumin 3.4 L (3.5-5.0) g/dL 08/15/20 08/15/20 08/15/20 Range/Units 03:29 03:29 04:29 RBC 2.29 L (4.30-5.90) m/uL Hgb 7.3 L (13.0-17.5) gm/dL Hct 21.6 L (39.0-53.0) % APTT 56.8 H (22.0-30.0) sec Sodium 136 L (137-145) mmol/L Chloride 113 H (98-107) mmol/L Carbon Dioxide 20 L (22-30) mmol/L BUN 52 H (9-20) mg/dL Creatinine 2.66 H (0.66-1.25) mg/dL Glucose (74-99) mg/dL POC Glucose (mg/dL) (75-99) mg/dL Hemoglobin A1c (4.0-6.0) % Calcium 8.2 L (8.4-10.2) mg/dL Total Protein 5.4 L (6.3-8.2) g/dL Albumin 2.8 L (3.5-5.0) g/dL Microbiology - Last 24 Hours (Table) 08/13/20 21:58 Blood Culture - Preliminary Blood No Growth after 24 hours Assessment and Plan Assessment: 1 non-ST PA: With multiple coronary artery disease involvement patient did not require any angioplasty or stent placement at this point patient will be seen cardiothoracic surgeon for possible need for multi-vessel bypass surgery. Continue secondary prevention. 2 acute kidney injury with acute kidney failure on stage IV chronic kidney disease: Hydration we'll consult nephrology repeat BUN/creatinine 24 hours. 3 severe stenosis of the right carotid artery: Patient most likely require carotid endarterectomy which can be and might need to be done before open heart surgery. 4 diabetes: Most likely type I on insulin pump will continue patient on Accu- Chek with sliding scales coverage and resume his insulin pump at this point. His blood sugar and insulin pump insulin low 100. 5 hypertension: Has been on enalapril 2.5 mg a day surprisingly is not on any beta jaxon. 6 hyperlipidemia: Resume Crestor at 10 mg daily. 7 chronic advance diabetic peripheral neuropathy: Patient should be on at least a starter of neuropathy medication like gabapentin or Lyrica something highly suggested to be done as an outpatient. 8 mild anemia: Iron supplement and repeat CBC watch for any GI bleed. Planning: Waiting for the kidney function to improve slightly bit before he goes for CT of the neck to the side and the severity of the carotid stenosis then the arrangement to do open heart surgery and carotid surgery altogether the same time possibly early next week.
--- NOTE | 2020-08-15 10:55 | P.PN ---
Subjective Progress Note Date: 08/15/20 Principal diagnosis: Acute coronary syndrome This is a 59-year-old gentleman who was admitted to the hospital with bilateral arms discomfort and body ache and was ruled in for acute non-ST deviation myocardial infarction. He underwent a heart catheterization and that revealed s evere triple-vessel coronary artery disease. The patient was admitted to the intensive care unit and the [surgical team consult was placed and the patient is in process to be seen. The patient was seen today August 152020. He remains asymptomatic. He remains hemodynamically stable. He is on aspirin and statin and metoprolol. He is also on lisinopril. Nephrology service on the case. Meanwhile he underwent an echocardiogram which revealed mildly impaired LV function was EF between 45- 50%. Also he underwent carotid duplex study and that revealed severe disease on the right and intermediate disease on the left. He is in process of getting a computed tomography scan of the chest to assess his aorta and also CTA of the neck to assess the carotid. Objective - Vital Signs Vital signs: Vital Signs Temp 98.4 F 08/15/20 08:00 Pulse 69 08/15/20 10:00 Resp 19 08/15/20 10:00 BP 117/95 08/15/20 10:00 Pulse Ox 98 08/15/20 10:00 Intake & Output 08/14/20 08/15/20 08/15/20 18:59 06:59 18:59 Intake Total 4244.418 6944.667 400 Output Total 1100 1500 450 Balance 899.374 -190.333 -50 Weight 57.2 kg Intake: IV 1200 1200 400 Sodium Chloride 0.9% 1, 1200 1200 400 000 ml @ 100 mls/hr IV . Q10H JACKI Rx#:[id number] Intake, IV Titration 69.374 109.667 Amount Heparin Sod,Pork in 0.45% 56.226 109.667 NaCl 25,000 unit In 0.45 % NaCl 1 250ml.bag @ 12 UNITS/KG/HR 6.913 mls/hr IV .Q24H JACKI Rx#: [id number] Insulin Regular 100 unit 13.148 In Sodium Chloride 0.9% 100 ml @ Per Protocol IV .Q0M JACKI Rx#:[id number] Oral 730 Output: Urine 1100 1500 450 Other: Voiding Method Urinal Urinal # Voids 1 - Constitutional General appearance: Present: no acute distress - Respiratory Respiratory: bilateral: CTA - Cardiovascular Rhythm: regular Heart sounds: normal: S1, S2 - Labs CBC & Chem 7: 08/15/20 03:29 08/15/20 04:29 Labs: Abnormal Lab Results - Last 24 Hours (Table) 08/14/20 08/14/20 08/14/20 Range/Units 04:29 11:13 12:14 RBC (4.30-5.90) m/uL Hgb (13.0-17.5) gm/dL Hct (39.0-53.0) % APTT (22.0-30.0) sec Sodium (137-145) mmol/L Chloride (98-107) mmol/L Carbon Dioxide (22-30) mmol/L BUN (9-20) mg/dL Creatinine (0.66-1.25) mg/dL Glucose (74-99) mg/dL POC Glucose (mg/dL) 249 H 175 H (75-99) mg/dL Hemoglobin A1c 8.1 H (4.0-6.0) % Calcium (8.4-10.2) mg/dL Total Protein (6.3-8.2) g/dL Albumin (3.5-5.0) g/dL 08/14/20 08/14/20 08/14/20 Range/Units 12:30 12:30 20:40 RBC 2.67 L (4.30-5.90) m/uL Hgb 8.5 L (13.0-17.5) gm/dL Hct 25.3 L (39.0-53.0) % APTT 79.3 H (22.0-30.0) sec Sodium 136 L (137-145) mmol/L Chloride 108 H (98-107) mmol/L Carbon Dioxide (22-30) mmol/L BUN 61 H (9-20) mg/dL Creatinine 3.03 H (0.66-1.25) mg/dL Glucose 144 H (74-99) mg/dL POC Glucose (mg/dL) (75-99) mg/dL Hemoglobin A1c (4.0-6.0) % Calcium (8.4-10.2) mg/dL Total Protein 6.1 L (6.3-8.2) g/dL Albumin 3.4 L (3.5-5.0) g/dL 08/15/20 08/15/20 08/15/20 Range/Units 03:29 03:29 04:29 RBC 2.29 L (4.30-5.90) m/uL Hgb 7.3 L (13.0-17.5) gm/dL Hct 21.6 L (39.0-53.0) % APTT 56.8 H (22.0-30.0) sec Sodium 136 L (137-145) mmol/L Chloride 113 H (98-107) mmol/L Carbon Dioxide 20 L (22-30) mmol/L BUN 52 H (9-20) mg/dL Creatinine 2.66 H (0.66-1.25) mg/dL Glucose (74-99) mg/dL POC Glucose (mg/dL) (75-99) mg/dL Hemoglobin A1c (4.0-6.0) % Calcium 8.2 L (8.4-10.2) mg/dL Total Protein 5.4 L (6.3-8.2) g/dL Albumin 2.8 L (3.5-5.0) g/dL Microbiology - Last 24 Hours (Table) 08/13/20 21:58 Blood Culture - Preliminary Blood No Growth after 24 hours Assessment and Plan Assessment: Assessment #1 acute non-ST elevation myocardial infarction #2 hypertension #3 dyslipidemia Plan #1 continue the current medical regimen #2 follow-up with a CTA of the neck and CTA of the chest #3 monitor the kidney function and electrolytes #4 follow-up with the patient
--- NOTE | 2020-08-15 11:42 | PN ---
PROGRESS NOTE PULMONARY/CRITICAL CARE PROGRESS NOTE: DATE OF SERVICE: 08/15/2020 This is a 59-year-old gentleman seen in consultation yesterday. He presented to the hospital with chest pain and was found to have an acute non ST-segment elevation myocardial infarction. Cardiac catheterization reveals severe coronary disease with a 95% stenosis to his mid LAD, 60-70 percent stenosis to the obtuse marginal 1, 100% stenosis to the obtuse marginal 2, 80% stenosis to the mid circumflex, and 85% stenosis to the right coronary artery. He had a previous stent placement to the mid RCA in 2004. In addition, he has diabetes, diabetic neuropathy, stage 4 chronic kidney disease, acute on chronic anemia, peripheral vascular disease, previous amputation of the left 2nd and 3rd toe, bilateral Dupuytren's contractures, and chronic and ongoing tobacco dependence. Interestingly, the patient had a spirometry. His lung function are actually quite excellent. Based on his FEV1 and MVV, and without an RV/TLC to evaluate, the patient is at no increased operative risk for general anesthesia. The patient probably will not have surgery done until sometime early next week. PHYSICAL EXAMINATION: VITAL SIGNS: Current vital signs are stable. Temperature 98.4, heart rate 69, respiratory rate 19, blood pressure 117/95, mean 102, room air saturation 98%. Appears in no acute distress. HEENT: Examination is grossly unremarkable. NECK: Supple. Full range of motion. No adenopathy. Neck veins are flat. CARDIOVASCULAR: Examination reveals regular rhythm and rate. S1, S2 normal. LUNGS: Reveal clear breath sounds. ABDOMEN: Soft. EXTREMITIES are intact. No cyanosis, clubbing, or edema. Amputations are noted. SKIN: Without rash. NEUROLOGIC: Examination is nonfocal. LABS: Reviewed. White count 6.8, hemoglobin 7.3, hematocrit 21.6, platelet count normal. PTT is 56.8. Sodium 136, potassium 4.5, chloride 113, CO2 20 and anion gap is 3. BUN and creatinine were 52 and 2.66 down from 61 and 3.03. Microbiology is negative. Scans and x-rays are all evaluated. CURRENT MEDICATIONS: Reviewed. He is on Tylenol No.3, aspirin, Lipitor, iron sulfate, IV heparin via weight based protocol, insulin, Zestril, metoprolol, Bactroban ointment, Protonix and saline IV at KVO. ASSESSMENT: 1. Acute non ST-segment elevation myocardial infarction. The patient found to have severe coronary disease, with 95% stenosis of the mid LAD, 60-70% stenosis of the obtuse marginal 1, 100% stenosis of obtuse marginal 2, 80% stenosis to the mid circumflex and 85% stenosis of the right coronary artery. 2. Severe carotid artery disease, right greater than left. 3. History of coronary artery disease with previous stent placement in the proximal and mid RCA, 2004. 4. Diabetes mellitus, managed on an insulin pump. 5. Diabetic neuropathy. 6. Chronic kidney disease, stage IV. 7. Acute on chronic anemia. 8. Peripheral vascular occlusive disease. 9. Previous amputation of the left 2nd and 3rd toe. 10.Bilateral dupuytren's contractures. 11.Chronic and ongoing tobacco dependence. 12.No significant lung disease based on preoperative spirometry. PLANS: Based on his PFTs, the patient is at no increased operative risk. This is based on the FEV1 and the MVV. The patient is otherwise doing well from the pulmonary standpoint. Surgery probably not until sometime next week. We will continue to follow. Prognosis is guarded otherwise. He has a lot of medical issues including severe coronary disease and severe carotid disease. MMODL / IJN: [id number] /
[2020-08-15] MEDS ORDERED: DARBEPOETIN ALFA 40 MCG/0.4 ML SYRINGE SQ SCH (12:15)
[2020-08-15] MEDS: MUPIROCIN 2% OINT 22 GM TUBE NASAL SCH ×2 (14:08→20:13)
--- NOTE | 2020-08-15 14:17 | CONS ---
CONSULTATION REASON FOR CONSULT: Renal failure. HISTORY OF PRESENT ILLNESS: Patient is a 59-year-old male with history of chronic kidney disease secondary to diabetic nephropathy, NKF stage IV with baseline creatinine about 2.8 mg/dL as of April of 2020 as outpatient. Patient was admitted to the hospital with complaints of chest pain. He ruled in for acute UT. Troponin was elevated at 7.390. The patient also had a cardiac catheterization which was done on 08/13/2020. The catheterization showed 3 vessel disease and patient has been evaluated by Cardiothoracic Surgery. There are plans for possible surgery on Tuesday08/18/2020. Patient currently denies any chest pains or shortness of breath. He has had good urine output. Serum creatinine this admission was 3.17. It is down to 2.6 today. The patient is maintained on IV fluids at 100 mL an hour. PAST MEDICAL HISTORY: Chronic kidney disease stage 4 secondary to diabetic nephropathy, hypertension, type 2 diabetes, hyperlipidemia, Dupuytren contracture, neuropathy, cataracts. PAST SURGICAL HISTORY: Cardiac catheterization, coronary stent placement, cataract surgery, colonoscopy, left 2nd and 3rd toe amputations. SOCIAL HISTORY: Positive for smoking. No history of drug abuse or alcohol abuse. MEDICATIONS: Medications prior to admission include aspirin, Crestor, Vasotec, iron, vitamin D3. ALLERGIES: None. REVIEW OF SYSTEMS: As per HPI. Other systems negative. PHYSICAL EXAMINATION: Patient is comfortable. Blood pressure is 117/95, heart rate 69 per minute, patient is afebrile. Examination of the heart S1, S2. Examination of the lungs, bilateral breath sounds are heard. Abdomen is soft, nontender. Examination of lower extremities shows no significant edema. [employer] exam grossly intact. LAB: Show sodium 136, potassium 4.5, chloride 113, CO2 is 20, BUN 52, creatinine 2.6, hemoglobin 7.3 g/dL. Albumin 2.8. ASSESSMENT: 1. Chronic kidney disease stage 4 secondary to diabetic nephropathy with previous creatinine 2.8 in April of 2020 as outpatient. The patient has been evaluated by Vascular Surgery. He saw Dr. Silva for vein mapping. Patient is scheduled to have coronary artery bypass surgery on 08/18/2020. He is advised regarding the risk of progression of kidney disease postoperatively and with repeated exposure to IV contrast and the possibility of starting renal replacement therapy. 2. Acute kidney injury, most likely cardiorenal with an acute myocardial infarction, currently improved. Patient is maintained on IV fluids. There is likely a component of hypovolemia as well. The patient is maintained on ALLISON inhibitors. He did get his Zestril this morning. He currently has good urine output. I will continue with IV fluids. Serum creatinine has decreased to 2.6. I will hold off on the CTA for today and we can likely perform it tomorrow. 3. Non ST elevation myocardial infarction, scheduled for coronary artery bypass surgery, status post cardiac catheterization on 08/13/2020. 4. Cardiomyopathy, ejection fraction 45-50 percent, normal left atrium. 5. Mild to moderate mitral regurgitation. PLAN: Continue with IV fluids. Check iron profile for workup of anemia. Hold off on the CTA today and we can likely perform it tomorrow. The patient is advised regarding possibility of worsening renal function and possible need for renal replacement therapy postoperatively. He is agreeable. The case was also discussed with Cardiothoracic Surgery and it is recommended not to use the radial artery in anticipation of AV fistula placement in the upper extremities in preparation for renal replacement therapy down the road. Thank you for this consultation. We will continue to follow the patient with you during his hospitalization. MMODL / IJN: [id number] /
[2020-08-15 17:33] LABS: % Iron Saturation 20.99 (15.00-50.00)
[2020-08-15] MEDS: Insulin Aspart (For Pump) 100 UNIT/ML VIAL SQ-PUMP SCH (22:49)
[2020-08-15] MEDS: FERROUS SULFATE 325 MG TAB PO SCH (22:50)
[2020-08-16] MEDS: SODIUM CHLORIDE 0.9% 1,000 ML IV SCH ×2 (00:53→12:31)
[2020-08-16 05:01] LABS: Basophils % (A) 0 %; Eosinophils # (A) 0.2 k/uL (0-0.7); Eosinophils % (A) 3 %; HCT 21.3 % (39.0-53.0); HGB 7.1 gm/dL (13.0-17.5); Lymphocytes # (A) 1.7 k/uL (1.0-4.8); Lymphocytes % (A) 33 %; MCH 31.4 pg (25.0-35.0); MCHC 33.4 g/dL (31.0-37.0); MCV 93.9 fL (80.0-100.0); Mean Platelet Volume 9.1; Monocytes # (A) 0.4 k/uL (0-1.0); Monocytes % (A) 7 %; Neutrophils # (A) 2.8 k/uL (1.3-7.7); Neutrophils % (A) 54 %; Platelet Count 174 k/uL (150-450); RBC 2.27 m/uL (4.30-5.90); RDW 14.7 % (11.5-15.5); WBC 5.2 k/uL (3.8-10.6)
[2020-08-16 05:07] LABS: Prothrombin Time 9.9 sec (9.0-12.0)
[2020-08-16 05:57] LABS: Albumin 2.7 g/dL (3.5-5.0); Calcium 7.9 mg/dL (8.4-10.2); Phosphorus 2.7 mg/dL (2.5-4.5); Total Bilirubin 0.3 mg/dL (0.2-1.3); Total Protein 5.2 g/dL (6.3-8.2)
[2020-08-16] MEDS: PANTOPRAZOLE 40 MG TABLET PO SCH (07:07)
--- NOTE | 2020-08-16 08:39 | P.PN ---
Subjective Progress Note Date: 08/16/20 Principal diagnosis: Triple-vessel coronary artery disease, non-STEMI this admission, bilateral internal carotid artery stenosis, right greater than 70%, left 50-69%, right and left vertebrals with retrograde flow on carotid dopplers. 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 Denies chest pain or shortness of breath. Remains in normal sinus rhythm and hemodynamically stable. Currently on IV heparin. Preoperative teaching continues. We are awaiting CTA to determine course of treatment for carotid disease, improvement in anemia prior to setting surgery date. This was discussed with the patient and he is understanding and in agreement. No other new concerns Objective - Vital Signs Vital signs: Vital Signs Temp 98.5 F 08/16/20 04:00 Pulse 74 08/16/20 07:00 Resp 18 08/16/20 07:00 BP 152/80 08/16/20 07:00 Pulse Ox 95 08/16/20 07:00 Intake & Output 08/15/20 08/16/20 08/16/20 18:59 06:59 18:59 Intake Total 1200 1800 Output Total 1200 1100 Balance 0 700 Weight 60.5 kg Intake: IV 1200 1300 Sodium Chloride 0.9% 1, 1200 1300 000 ml @ 100 mls/hr IV . Q10H JACKI Rx#:[id number] Oral 500 Output: Urine 1200 1100 Other: Voiding Method Urinal Urinal # Voids 2 # Bowel Movements 1 - Constitutional General appearance: Present: cooperative, no acute distress - Respiratory Details: Lungs sounds diminished bilaterally. Respirations even, nonlabored. Currently on room air with oxygen saturation in the high 90s. Able to achieve 3000 mL on his incentive spirometry. Strong cough - Cardiovascular Details: S1, S2 present. Regular rate and rhythm, sinus rhythm on telemetry. Palpable peripheral pulses bilaterally. No edema present. No calf pain or tenderness noted. - Gastrointestinal Gastrointestinal Comment(s): Abdomen soft, nontender, nondistended. Active bowel sounds present 4 quadrants. Tolerating diet. - Genitourinary Genitourinary Comment(s): Continues to void - Integumentary Integumentary Comment(s): Skin is warm and dry - Neurologic Neurologic: Present: CNII-XII intact - Musculoskeletal Musculoskeletal: Present: gait normal, strength equal bilaterally - Psychiatric Psychiatric: Present: A&O x's 3, appropriate affect, intact judgment & insight - Allied health notes Allied health notes reviewed: nursing - Labs CBC & Chem 7: 08/16/20 04:51 08/16/20 04:51 Labs: Abnormal Lab Results - Last 24 Hours (Table) 08/15/20 08/15/20 08/16/20 Range/Units 04:29 04:29 04:51 RBC 2.27 L (4.30-5.90) m/uL Hgb 7.1 L (13.0-17.5) gm/dL Hct 21.3 L (39.0-53.0) % APTT (22.0-30.0) sec Sodium 136 L (137-145) mmol/L Chloride 113 H (98-107) mmol/L Carbon Dioxide 20 L (22-30) mmol/L BUN 52 H (9-20) mg/dL Creatinine 2.66 H (0.66-1.25) mg/dL Glucose (74-99) mg/dL Calcium 8.2 L (8.4-10.2) mg/dL Iron 51 L (65-175) ug/dL Total Protein 5.4 L (6.3-8.2) g/dL Albumin 2.8 L (3.5-5.0) g/dL 08/16/20 08/16/20 Range/Units 04:51 04:51 RBC (4.30-5.90) m/uL Hgb (13.0-17.5) gm/dL Hct (39.0-53.0) % APTT 46.1 H (22.0-30.0) sec Sodium 135 L (137-145) mmol/L Chloride 114 H (98-107) mmol/L Carbon Dioxide 21 L (22-30) mmol/L BUN 35 H (9-20) mg/dL Creatinine 2.13 H (0.66-1.25) mg/dL Glucose 69 L (74-99) mg/dL Calcium 7.9 L (8.4-10.2) mg/dL Iron (65-175) ug/dL Total Protein 5.2 L (6.3-8.2) g/dL Albumin 2.7 L (3.5-5.0) g/dL Microbiology - Last 24 Hours (Table) 08/13/20 21:58 Blood Culture - Preliminary Blood No Growth after 48 hours 08/15/20 09:03 Nasal Screen MRSA/MSSA - Preliminary Nasal Swab Assessment and Plan Assessment: 1. Triple-vessel coronary artery disease, non-STEMI this admission 2. History of coronary artery disease with stent placement to the right coronary artery in 2004 3. Hypertension 4. Hyperlipidemia, treated, cholesterol 161, LDL 85 5. Type 1 insulin-dependent diabetes with insulin pump in place and peripheral neuropathy, hemoglobin A1c 8.1% 6. Chronic kidney disease stage IV with chronic anemia 7. Current tobacco dependence, FEV1 78% of predicted 8. Chronic right foot wound with MRSA infection in 2014 9. 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 Dupuytren's contracture to bilateral hands 11. Occasional EtOH use, 1-2 drinks weekly 12. Occasional marijuana use 13. Family history of premature coronary artery disease with both father and brother having CABG in their early 50s 14. Both parents from brain aneurysm in their 70s 15. Bilateral internal carotid artery stenosis, right greater than 70%, left 50-69%, right and left vertebrals with retrograde flow Plan: 1. Continue aspirin, statin, beta jaxon therapy 2. Encourage incentive spirometry use 10 times every hour while awake. Smoking cessation encouraged 3. Increase activity, ambulate as tolerated. 4. Nephrology consulted, appreciate recommendations 5. CTA to evaluate carotid arteries, subclavian arteries and the aorta from the root through the arch needs to be completed prior to surgical intervention. Will await clearance from nephrology 6. Anemia needs to be addressed, would like hemoglobin/hematocrit higher prior to going into surgery 7. Heart catheterization and transthoracici films reviewed yesterday with Dr. Mann and discussed with the patient 8. More recommendations to follow regarding timing of surgery once CTA has been completed, anemia and kidney disease have been addressed by nephrology 9. Medical management of other comorbidities per primary care service 10. Patient may be transferred to 3S cardiac stepdown unit from cardiothoracic surgery standpoint when ok with other services. Time with Patient: Greater than 30
--- NOTE | 2020-08-16 08:49 | P.PN ---
Subjective Progress Note Date: 08/16/20 Principal diagnosis: Acute coronary syndrome This is a 59-year-old gentleman who was admitted to the hospital with bilateral arms discomfort and body ache and was ruled in for acute non-ST deviation myocardial infarction. He underwent a heart catheterization and that revealed s evere triple-vessel coronary artery disease. The patient was admitted to the intensive care unit and the [surgical team consult was placed and the patient is in process to be seen. The patient was seen today August [id number]. he remains asymptomatic from a cardiovascular standpoint overview. hemodynamically he is stable as well. The creatinine is slightly better. the plan is to pursue with a computed tomography scan of the carotid as well as computed tomography scan of the thoracic aorta b ut that has to be cleared by the nephrology service. Objective - Vital Signs Vital signs: Vital Signs Temp 98.5 F 08/16/20 04:00 Pulse 74 08/16/20 07:00 Resp 18 08/16/20 07:00 BP 152/80 08/16/20 07:00 Pulse Ox 95 08/16/20 07:00 Intake & Output 08/15/20 08/16/20 08/16/20 18:59 06:59 18:59 Intake Total 1200 1800 Output Total 1200 1100 Balance 0 700 Weight 60.5 kg Intake: IV 1200 1300 Sodium Chloride 0.9% 1, 1200 1300 000 ml @ 100 mls/hr IV . Q10H JACKI Rx#:[id number] Oral 500 Output: Urine 1200 1100 Other: Voiding Method Urinal Urinal # Voids 2 # Bowel Movements 1 - Constitutional General appearance: Present: no acute distress - Respiratory Respiratory: bilateral: diminished - Cardiovascular Rhythm: regular Heart sounds: normal: S1, S2 - Labs CBC & Chem 7: 08/16/20 04:51 08/16/20 04:51 Labs: Abnormal Lab Results - Last 24 Hours (Table) 08/15/20 08/15/20 08/16/20 Range/Units 04:29 04:29 04:51 RBC 2.27 L (4.30-5.90) m/uL Hgb 7.1 L (13.0-17.5) gm/dL Hct 21.3 L (39.0-53.0) % APTT (22.0-30.0) sec Sodium 136 L (137-145) mmol/L Chloride 113 H (98-107) mmol/L Carbon Dioxide 20 L (22-30) mmol/L BUN 52 H (9-20) mg/dL Creatinine 2.66 H (0.66-1.25) mg/dL Glucose (74-99) mg/dL Calcium 8.2 L (8.4-10.2) mg/dL Iron 51 L (65-175) ug/dL Total Protein 5.4 L (6.3-8.2) g/dL Albumin 2.8 L (3.5-5.0) g/dL 08/16/20 08/16/20 Range/Units 04:51 04:51 RBC (4.30-5.90) m/uL Hgb (13.0-17.5) gm/dL Hct (39.0-53.0) % APTT 46.1 H (22.0-30.0) sec Sodium 135 L (137-145) mmol/L Chloride 114 H (98-107) mmol/L Carbon Dioxide 21 L (22-30) mmol/L BUN 35 H (9-20) mg/dL Creatinine 2.13 H (0.66-1.25) mg/dL Glucose 69 L (74-99) mg/dL Calcium 7.9 L (8.4-10.2) mg/dL Iron (65-175) ug/dL Total Protein 5.2 L (6.3-8.2) g/dL Albumin 2.7 L (3.5-5.0) g/dL Microbiology - Last 24 Hours (Table) 08/13/20 21:58 Blood Culture - Preliminary Blood No Growth after 48 hours 08/15/20 09:03 Nasal Screen MRSA/MSSA - Preliminary Nasal Swab Assessment and Plan Assessment: Assessment #1 acute non-ST elevation myocardial infarction #2 hypertension #3 dyslipidemia Plan #1 continue the current medical regimen #2 follow-up with a CTA of the neck and CTA of the chest #3 monitor the kidney function and electrolytes #4 follow-up with the patient
[2020-08-16] MEDS: lisinopriL 5 MG TAB PO SCH (08:52)
[2020-08-16] MEDS: METOPROLOL TARTRATE 25 MG TAB PO SCH ×2 (08:52→20:07)
[2020-08-16] MEDS: ATORVASTATIN 80 MG TAB PO SCH (08:52)
[2020-08-16] MEDS: MUPIROCIN 2% OINT 22 GM TUBE NASAL SCH ×2 (08:52→20:07)
--- NOTE | 2020-08-16 11:21 | P.PN ---
Subjective Progress Note Date: 08/16/20 Principal diagnosis: This 59-year-old male seen in consultation because of acute kidney injury. He had acute UT, and had cardiac catheterization on 08/13/2020 with three-vessel di sease noted dated 08/13/2020. The cardiac catheterization was after his admission creatinine which was 3.17 therefore is likely the acute kidney injury is from the acute UT. Subsequently his creatinine improved to 2.1. As of this morning Is known with chronic kidney disease secondary diabetic nephropathy with creatinine 2.8 in April at our office but 1.8 here in January 2020. He is also noted to have peripheral vascular disease with amputation of several left second and third toe in the past, Currently he is asymptomatic no chest pain or shortness of breath feels good no dizziness no fever chills nausea vomiting diarrhea Objective - Vital Signs Vital signs: Vital Signs Temp 98.3 F 08/16/20 08:00 Pulse 80 08/16/20 11:00 Resp 12 08/16/20 11:00 BP 122/60 08/16/20 11:00 Pulse Ox 98 08/16/20 11:00 Intake & Output 08/15/20 08/16/20 08/16/20 18:59 06:59 18:59 Intake Total 1200 1800 1120 Output Total 1200 1100 Balance 0 700 1120 Weight 60.5 kg 60.5 kg Intake: IV 1200 1300 400 Sodium Chloride 0.9% 1, 1200 1300 400 000 ml @ 100 mls/hr IV . Q10H JACKI Rx#:[id number] Oral 500 720 Output: Urine 1200 1100 Other: Voiding Method Urinal Urinal # Voids 2 # Bowel Movements 1 On examination is awake alert oriented comfortable on room air. HEENT exam no JVP neck is supple no facial asymmetry Lungs clear to auscultation good air entry bilaterally Heart sounds are unremarkable for any murmur rub gallop Abdomen soft nontender no organomegaly ascites masses Extremity exam was no edema Neurologically awake alert oriented - Labs CBC & Chem 7: 08/16/20 04:51 08/16/20 04:51 Labs: Abnormal Lab Results - Last 24 Hours (Table) 08/15/20 08/16/20 08/16/20 Range/Units 04:29 04:51 04:51 RBC 2.27 L (4.30-5.90) m/uL Hgb 7.1 L (13.0-17.5) gm/dL Hct 21.3 L (39.0-53.0) % APTT (22.0-30.0) sec Sodium 135 L (137-145) mmol/L Chloride 114 H (98-107) mmol/L Carbon Dioxide 21 L (22-30) mmol/L BUN 35 H (9-20) mg/dL Creatinine 2.13 H (0.66-1.25) mg/dL Glucose 69 L (74-99) mg/dL Calcium 7.9 L (8.4-10.2) mg/dL Iron 51 L (65-175) ug/dL Total Protein 5.2 L (6.3-8.2) g/dL Albumin 2.7 L (3.5-5.0) g/dL 08/16/20 Range/Units 04:51 RBC (4.30-5.90) m/uL Hgb (13.0-17.5) gm/dL Hct (39.0-53.0) % APTT 46.1 H (22.0-30.0) sec Sodium (137-145) mmol/L Chloride (98-107) mmol/L Carbon Dioxide (22-30) mmol/L BUN (9-20) mg/dL Creatinine (0.66-1.25) mg/dL Glucose (74-99) mg/dL Calcium (8.4-10.2) mg/dL Iron (65-175) ug/dL Total Protein (6.3-8.2) g/dL Albumin (3.5-5.0) g/dL Microbiology - Last 24 Hours (Table) 08/15/20 09:03 Nasal Screen MRSA/MSSA - Final Nasal Swab 08/13/20 21:58 Blood Culture - Preliminary Blood No Growth after 48 hours Assessment and Plan Assessment: Impression 1. Acute kidney injury from prerenal from acute UT creatinine peaked at 3.17 on the day of admission and is down to 2.13. 2. Chronic kidney disease 3 to stage IV secondary to diabetic nephropathy with a baseline creatinine of about 2.8 in the office and April, and was 1.8 here in January 2020. 3. Acute UT status post cardiac catheterization 08/13/2020 4. Mild degree of non-gap acidosis. Gap is 0. With normal sodium and potassium, phosphate and slightly low at albumin 2.7, rule out myeloma, although unlikely 5. Peripheral vascular disease, coronary artery disease, carotid artery disease Recommendation 1. Discussed with the cardiovascular surgery staff regarding the risk of contrast-induced nephropathy. His risk of ATN is calculated at 14% based on his risk factor calculation and 80 mL of contrast. Risk of dialysis 0.1% at these are approximation. If possible use MRI and may use gadolinium if necessary. If the decision is to use computed tomography scan dye he needs to be hydrated with normal saline at 75 an hour about 4 hours prior to procedure and continued for 8 hours post with a close watch on intake and output and make sure he did not go into pulmonary edema Thank you for this consultation and we'll continue to follow closely
[2020-08-16] MEDS: HEPARIN SOD,PORK IN 0.45% NACL 25,000 UNIT in 0.45% NACL 1 250ML.BAG IV SCH (12:29)
--- NOTE | 2020-08-16 13:25 | PN ---
PROGRESS NOTE PULMONARY/CRITICAL CARE PROGRESS NOTE: DATE OF SERVICE: 08/16/2020 59-year-old gentleman who was recently evaluated by Cardiology for coronary artery disease. He was found to have severe disease in multiple coronary arteries. The patient is apparently going to be having a bypass grafting sometime in the near future, either Tuesday or Tuesday. Interestingly, he had spirometry. Spirometry showed excellent numbers including his FEV1 and MVV, and based on those numbers, he is at no increased operative risk for general anesthesia. The patient has a host of other medical issues including diabetes mellitus, diabetic neuropathy, stage 4 chronic kidney disease, acute on chronic anemia, peripheral vascular disease, previous amputation of the left 2nd and 3rd toe, bilateral Dupuytren's contractures, chronic and ongoing tobacco dependence, and carotid artery stenosis. PHYSICAL EXAMINATION: VITAL SIGNS: Current vital signs reviewed. Temperature 98.3, heart rate 80, respiratory rate 12, blood pressure 122/60, mean 80, saturations are 98%. Appears in no acute distress. HEENT: Examination is grossly unremarkable. NECK: Supple. Full range of motion. No adenopathy. Neck veins are flat. CARDIOVASCULAR: Examination reveals regular rhythm and rate. S1, S2 normal. LUNGS: Relatively clear. Breath sounds equal. No wheezes, rhonchi, or crackles. ABDOMEN: Soft. Bowel sounds are heard. EXTREMITIES are intact. Amputation of toes on the left foot are noted. SKIN: Without rash. NEUROLOGIC: Examination is brief but nonfocal. LABS: Reviewed. White count 5.2, hemoglobin 7.1, hematocrit 21.3, platelet count 174,000. PT 9.9, INR 1, PTT is 46.1. Sodium 135, potassium chloride 114, CO2 21, anion gap is 0. BUN and creatinine were 35 and 2.13. The rest of his labs are reviewed. Microbiology is currently negative. The rest of his scans are reviewed. CURRENT MEDICATIONS: Include Tylenol No.3, aspirin, Lipitor, Aranesp, iron, IV heparin, insulin, lisinopril, metoprolol, Bactroban ointment, Protonix and saline IV. The patient also currently wears an insulin pump. ASSESSMENT: 1. Acute non ST-segment elevation myocardial infarction. The patient on catheterization was found to have severe coronary artery disease with 95% stenosis of the mid LAD, 60-70% stenosis of the obtuse marginal 1, 100% stenosis of the obtuse marginal 2, 80% stenosis of the mid circumflex, and 85% stenosis of the right coronary artery. 2. Severe carotid artery stenosis, right greater than left. 3. History of coronary artery disease with previous stent placement in the proximal and mid RCA, 2004. 4. Diabetes mellitus, managed on insulin pump. 5. Diabetic neuropathy. 6. Chronic kidney disease, stage IV. 7. Acute on chronic anemia. 8. Peripheral vascular occlusive disease. 9. Previous amputation of the left 2nd and 3rd toe. 10.Bilateral Dupuytren's contractures. 11.Chronic and ongoing tobacco dependence. 12.No significant lung disease based on preoperative spirometry. PLAN: The patient's MVV and FEV1 were excellent. Based on those numbers, he is not at any increased operative risk for general anesthesia. He is currently counseled about the importance of smoking cessation. He has a number of other issues including chronic kidney disease and his anemia. In addition, the patient has peripheral vascular occlusive disease as well as carotid artery disease. All these have to be resolved before bypass grafting. We will continue to follow. Prognosis is guarded. MMODL / IJN: [id number] /
--- NOTE | 2020-08-16 13:46 | CT ---
EXAMINATION TYPE: CT chest wo con DATE OF EXAM: 08/16/2020 COMPARISON: NONE HISTORY: Evaluate aortic root, preopen cardiac surgery. Chest pain. CT DLP: 261.5 mGycm. Automated Exposure Control for Dose Reduction was Utilized. TECHNIQUE: CT scan of the thorax is performed without IV contrast. FINDINGS: LUNGS: Mild underlying emphysematous change with scattered subpleural blebs in the upper lobes. Tiny bilateral pleural effusions or pleural fluid collections. There is associated bibasilar compressive a telectasis. There is 1.3 x 0.8 cm slightly more focal compressive nodular atelectasis or possible und erlying nodule axial image 40, latter unlikely but not excluded. No pneumothorax seen bilaterally. MEDIASTINUM: Lack of IV contrast is noted to limit evaluation for mediastinal and especially hilar ad enopathy. There are no definitive greater than 1 cm hilar or mediastinal lymph nodes. No cardiomega ly or pericardial effusion is seen. Coronary artery calcification and/or stents are present. Four-ves kenna aortic arch which is normal variant. OTHER: Mild Compression type fracture L1 level with vertebral plasty. IMPRESSION: Chronic changes without acute pulmonary process areas
--- NOTE | 2020-08-16 16:16 | P.PN ---
Subjective Progress Note Date: 08/16/20 Non-ST ME, acute kidney failure, right-sided severe stenosis of the carotid artery, multiple coronary artery disease and involvement, type 2 diabetes on insulin pump, hypertension, hyperlipidemia and COPD. 59-year-old male one of Dr. Roach's patient with past medical history of diabetes on insulin pump, history of hypertension, hyperlipidemia, chronic neuropathy who is also noted to have coronary artery disease post PCI and stent placement back in 2004 was also has been having chronic kidney disease taste for. Patient presented to the emergency department today 08/13/2020 complaining of body ache all over his body along with numbness with worsening shortness of breath with nonspecific chest tightness or pressure and claims his neuropathy has been a lot worse he could not feel his feet and hands. His blood sugar has been slightly bit elevated as well. 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 08/14: Patient evaluated this morning, resting in bed, in no acute distress. Patient is currently undergoing testing for possible coronary artery bypass surgery with the cardiothoracic team. Patient had carotid ultrasound that showed severe right ICA stenosis and moderate left ICA stenosis. Patient became very argumentative and agitated this morning after discussion regarding his insulin pump. 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 If patient and family are agreeable to this and patient has a working insulin pump with the refill of insulin, patient may use his pump to manage his own sugar. 08/15: Patient remained ICU, had severe stenosis of the right carotid artery might need carotid endarterectomy, in the meanwhile with the use of dye and his kidney function currently is not able to go for CT of the neck will be waiting until Tuesday. Cardiothoracic surgery indicated that he need multi-vessel CABG and the same time might require carotid endarterectomy the same time such an arrangement can be probably done early next week. He seen nephrology kidney function slightly better today. 1/ patient remains in ICU. Underwent CT of the chest today with CTA neck pending. Patient denies any symptoms of chest pain or shortness of breath. Vitals are stable with temp of 98.5 pulse 85 respiratory rate 13 blood pressure 160/104. Blood work suggesting hemoglobin stable at 7.1, sodium 135 creatinine 2.13 BUN 35 CO2 21 chloride 114 blood sugar 69 this morning. Patient continues to use his own insulin pump . Patient agrees on removing the insulin pump close to the surgery. ROS CONSTITUTIONAL: Well-developed no acute respiratory distress. EYES: No icterus sclerae, no conjunctivitis. EARS, NOSE, MOUTH, THROAT, and FACE: No sore throat, lymphadenopathy, carotid bruits or deformity. RESPIRATORY: No SOB cough or wheezes. CARDIOVASCULAR: No CP, Palpitation, PND, Orthopnea, or angina. GASTROINTESTINAL: No Abd pain, Nausea or vomiting, no Diarrhea or constipation, No GI Bleed, no distention or masses. GENITOURINARY: Negative for Hematuria or UTI, no kidney stones. INTEGUMENT/BREAST: Negative for any muscular injury with mild osteoarthritis.. HEMATOLOGIC/LYMPHATIC: Negative for bleed or purpura. MUSCULOSKELTAL: Negative for Myalgia or arthralgia. NEURLOGICAL: No LOC, Sz or syncope, blurred vision dizziness or abnormality.. BEHAVIORAL/PSYCH: Negative. ENDOCRINE: Negative. Objective - Vital Signs Vital signs: Vital Signs Temp 98.5 F 08/16/20 12:00 Pulse 85 08/16/20 12:00 Resp 13 08/16/20 12:00 BP 164/104 08/16/20 12:00 Pulse Ox 96 08/16/20 12:00 Intake & Output 08/15/20 08/16/20 08/16/20 18:59 06:59 18:59 Intake Total 1200 1800 1470 Output Total 1200 1100 500 Balance 0 700 970 Weight 60.5 kg 60.5 kg Intake: IV 1200 1300 500 Sodium Chloride 0.9% 1, 1200 1300 500 000 ml @ 100 mls/hr IV . Q10H JACKI Rx#:[id number] Intake, IV Titration 250 Amount Heparin Sod,Pork in 0.45% 250 NaCl 25,000 unit In 0.45 % NaCl 1 250ml.bag @ 12 UNITS/KG/HR 6.913 mls/hr IV .Q24H JACKI Rx#: [id number] Oral 500 720 Output: Urine 1200 1100 500 Other: Voiding Method Urinal Urinal # Voids 2 # Bowel Movements 1 - Exam General Appearance: Alert, cooperative, no distress, appears stated age. Neck HEENT: Supple, no lymphadenopathy, no thyroid enlargement, right carotid bruits. Lungs: Clear to auscultation without crackles or wheezes no rhonchi, no defor mity. Chest Wall: Chest wall normal expansion with deep inspiration no tenderness and no deformity was found on exam, no costochondral pain or discomfort. Heart: Regular rate and rhythm, S1, S2 normal, no murmur, rub or gallop. Back: Symmetric, no curvature, ROM normal, no CVA tenderness. Abdomen: Soft, non-tender, bowel sounds active all four quadrants, no masses, no organomegaly. Extremities: Extremities normal, atraumatic, no cyanosis or edema. Pulses: 2+ and symmetric. Skin: Skin color, texture, tugor normal, no rashes or lesions. Neurologic: Alert oriented x3 cranial nerves II through XII intact, no motor deficit, no abnormal balance or gait. Slight peripheral neuropathy with lack of sensation of the hands and feet. - Labs CBC & Chem 7: 08/16/20 04:51 08/16/20 04:51 Labs: Abnormal Lab Results - Last 24 Hours (Table) 08/15/20 08/16/20 08/16/20 Range/Units 04:29 04:51 04:51 RBC 2.27 L (4.30-5.90) m/uL Hgb 7.1 L (13.0-17.5) gm/dL Hct 21.3 L (39.0-53.0) % APTT (22.0-30.0) sec Sodium 135 L (137-145) mmol/L Chloride 114 H (98-107) mmol/L Carbon Dioxide 21 L (22-30) mmol/L BUN 35 H (9-20) mg/dL Creatinine 2.13 H (0.66-1.25) mg/dL Glucose 69 L (74-99) mg/dL Calcium 7.9 L (8.4-10.2) mg/dL Iron 51 L (65-175) ug/dL Total Protein 5.2 L (6.3-8.2) g/dL Albumin 2.7 L (3.5-5.0) g/dL 08/16/20 Range/Units 04:51 RBC (4.30-5.90) m/uL Hgb (13.0-17.5) gm/dL Hct (39.0-53.0) % APTT 46.1 H (22.0-30.0) sec Sodium (137-145) mmol/L Chloride (98-107) mmol/L Carbon Dioxide (22-30) mmol/L BUN (9-20) mg/dL Creatinine (0.66-1.25) mg/dL Glucose (74-99) mg/dL Calcium (8.4-10.2) mg/dL Iron (65-175) ug/dL Total Protein (6.3-8.2) g/dL Albumin (3.5-5.0) g/dL Microbiology - Last 24 Hours (Table) 08/15/20 09:03 Nasal Screen MRSA/MSSA - Final Nasal Swab 08/13/20 21:58 Blood Culture - Preliminary Blood No Growth after 48 hours Assessment and Plan Plan: 1 non-ST ME: With multiple coronary artery disease involvement patient did not require any angioplasty or stent placement at this point patient will be seen cardiothoracic surgeon for possible need for multi-vessel bypass surgery. Continue secondary prevention. 2 acute kidney injury with acute kidney failure on stage IV chronic kidney disease: Hydration we'll consult nephrology repeat BUN/creatinine 24 hours. 3 severe stenosis of the right carotid artery: Patient most likely require car otid endarterectomy which can be and might need to be done before open heart surgery. 4 diabetes: Most likely type I on insulin pump will continue patient on Accu- Chek with sliding scales coverage and resume his insulin pump at this point. His blood sugar and insulin pump insulin low 100. 5 hypertension: Has been on enalapril 2.5 mg a day surprisingly is not on any beta jaxon. 6 hyperlipidemia: Resume Crestor at 10 mg daily. 7 chronic advance diabetic peripheral neuropathy: Patient should be on at least a starter of neuropathy medication like gabapentin or Lyrica something highly suggested to be done as an outpatient. 8 mild anemia: Iron supplement and repeat CBC watch for any GI bleed. Blood transfusion: Above 7 Planning: Waiting for the kidney function to improve slightly bit before he goes for CT of the neck to the side and the severity of the carotid stenosis then the arrangement to do open heart surgery and carotid surgery altogether the same time possibly early next week.
[2020-08-16 16:42] LABS: Glucose,Whole Blood 108 mg/dL (75-99)
[2020-08-17] MEDS: Insulin Aspart (For Pump) 100 UNIT/ML VIAL SQ-PUMP SCH ×2 (06:33→21:32)
[2020-08-17] MEDS: PANTOPRAZOLE 40 MG TABLET PO SCH (06:33)
[2020-08-17 06:44] LABS: HCT 21.2 % (39.0-53.0); HGB 7.3 gm/dL (13.0-17.5); MCH 32.2 pg (25.0-35.0); MCHC 34.3 g/dL (31.0-37.0); MCV 93.9 fL (80.0-100.0); Mean Platelet Volume 7.8; Platelet Count 172 k/uL (150-450); RBC 2.25 m/uL (4.30-5.90); RDW 14.7 % (11.5-15.5); WBC 4.9 k/uL (3.8-10.6)
[2020-08-17 07:27] LABS: Albumin 2.7 g/dL (3.5-5.0); Calcium 7.7 mg/dL (8.4-10.2); Total Bilirubin 0.3 mg/dL (0.2-1.3); Total Protein 5.2 g/dL (6.3-8.2)
[2020-08-17] MEDS: ATORVASTATIN 80 MG TAB PO SCH (08:17)
[2020-08-17] MEDS: MUPIROCIN 2% OINT 22 GM TUBE NASAL SCH ×2 (08:17→21:32)
[2020-08-17] MEDS: lisinopriL 10 MG TAB PO SCH (08:17)
[2020-08-17] MEDS: METOPROLOL TARTRATE 25 MG TAB PO SCH ×2 (08:17→21:32)
--- NOTE | 2020-08-17 10:01 | P.PN ---
Subjective Progress Note Date: 08/17/20 Principal diagnosis: Acute coronary syndrome This is a 59-year-old gentleman who was admitted to the hospital with bilateral arms discomfort and body ache and was ruled in for acute non-ST deviation myocardial infarction. He underwent a heart catheterization and that revealed s evere triple-vessel coronary artery disease. The patient was admitted to the intensive care unit and the [surgical team consult was placed and the patient is in process to be seen. The patient was seen today 09/13/2020. He remains asymptomatic. He remains hemodynamically stable. He is on maximize medical treatment. He is in process of getting a computed tomography scan with contrast of the thoracic aorta as well as carotid arteries. We'll continue following up with the patient. Beside that on going to stop the heparin IV. Objective - Vital Signs Vital signs: Vital Signs Temp 97.9 F 08/17/20 08:15 Pulse 85 08/17/20 08:15 Resp 18 08/17/20 08:15 BP 151/70 08/17/20 08:15 Pulse Ox 100 08/17/20 08:15 Intake & Output 08/16/20 08/17/20 08/17/20 18:59 06:59 18:59 Intake Total 1710 400.003 Output Total 500 Balance 1210 400.003 Weight 60.5 kg 60.6 kg Intake: IV 500 Sodium Chloride 0.9% 1, 500 000 ml @ 100 mls/hr IV . Q10H JACKI Rx#:[id number] Intake, IV Titration 250 160.003 Amount Heparin Sod,Pork in 0.45% 250 160.003 NaCl 25,000 unit In 0.45 % NaCl 1 250ml.bag @ 12 UNITS/KG/HR 6.913 mls/hr IV .Q24H JACKI Rx#: [id number] Oral 960 240 Output: Urine 500 Other: Voiding Method Urinal # Voids 1 - Constitutional General appearance: Present: no acute distress - Respiratory Respiratory: bilateral: CTA - Cardiovascular Rhythm: regular Heart sounds: normal: S1, S2 - Labs CBC & Chem 7: 08/17/20 06:23 08/17/20 06:23 Labs: Abnormal Lab Results - Last 24 Hours (Table) 08/16/20 08/17/20 08/17/20 Range/Units 16:38 06:23 06:23 RBC (4.30-5.90) m/uL Hgb (13.0-17.5) gm/dL Hct (39.0-53.0) % APTT 42.3 H (22.0-30.0) sec Sodium 135 L (137-145) mmol/L Chloride 114 H (98-107) mmol/L Carbon Dioxide 21 L (22-30) mmol/L BUN 28 H (9-20) mg/dL Creatinine 1.93 H (0.66-1.25) mg/dL Glucose 103 H (74-99) mg/dL POC Glucose (mg/dL) 108 H (75-99) mg/dL Calcium 7.7 L (8.4-10.2) mg/dL Total Protein 5.2 L (6.3-8.2) g/dL Albumin 2.7 L (3.5-5.0) g/dL 08/17/20 Range/Units 06:23 RBC 2.25 L (4.30-5.90) m/uL Hgb 7.3 L (13.0-17.5) gm/dL Hct 21.2 L (39.0-53.0) % APTT (22.0-30.0) sec Sodium (137-145) mmol/L Chloride (98-107) mmol/L Carbon Dioxide (22-30) mmol/L BUN (9-20) mg/dL Creatinine (0.66-1.25) mg/dL Glucose (74-99) mg/dL POC Glucose (mg/dL) (75-99) mg/dL Calcium (8.4-10.2) mg/dL Total Protein (6.3-8.2) g/dL Albumin (3.5-5.0) g/dL Microbiology - Last 24 Hours (Table) 08/13/20 21:58 Blood Culture - Preliminary Blood No Growth after 72 hours 08/15/20 09:03 Nasal Screen MRSA/MSSA - Final Nasal Swab Assessment and Plan Assessment: Assessment #1 acute non-ST elevation myocardial infarction #2 hypertension #3 dyslipidemia Plan #1 continue the current medical regimen #2 follow-up with a CTA of the neck and CTA of the chest #3 monitor the kidney function and electrolytes #4 DC heparin IV
--- NOTE | 2020-08-17 10:04 | P.PN ---
Subjective Progress Note Date: 08/17/20 Principal diagnosis: Triple-vessel coronary artery disease, non-STEMI this admission, bilateral internal carotid artery stenosis, right greater than 70%, left 50-69%, right and left vertebrals with retrograde flow on carotid dopplers. 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 Denies chest pain or shortness of breath. Remains in normal sinus rhythm and hemodynamically stable. Currently on IV heparin. Preoperative teaching continues. We are awaiting CTA to determine course of treatment for carotid disease, improvement in anemia prior to setting surgery date. This was discussed with the patient and he is understanding and in agreement. No other new concerns Objective - Vital Signs Vital signs: Vital Signs Temp 97.9 F 08/17/20 08:15 Pulse 85 08/17/20 08:15 Resp 18 08/17/20 08:15 BP 151/70 08/17/20 08:15 Pulse Ox 100 08/17/20 08:15 Intake & Output 08/16/20 08/17/20 08/17/20 18:59 06:59 18:59 Intake Total 1710 400.003 Output Total 500 Balance 1210 400.003 Weight 60.5 kg 60.6 kg Intake: IV 500 Sodium Chloride 0.9% 1, 500 000 ml @ 100 mls/hr IV . Q10H JACKI Rx#:[id number] Intake, IV Titration 250 160.003 Amount Heparin Sod,Pork in 0.45% 250 160.003 NaCl 25,000 unit In 0.45 % NaCl 1 250ml.bag @ 12 UNITS/KG/HR 6.913 mls/hr IV .Q24H JACKI Rx#: [id number] Oral 960 240 Output: Urine 500 Other: Voiding Method Urinal # Voids 1 - Constitutional General appearance: Present: cooperative, no acute distress - Respiratory Details: Lungs sounds diminished bilaterally. Respirations even, nonlabored. Currently on room air with oxygen saturation in the high 90s. Able to achieve 3000 mL on his incentive spirometry. Strong cough - Cardiovascular Details: S1, S2 present. Regular rate and rhythm, sinus rhythm on telemetry. Palpable peripheral pulses bilaterally. No edema present. No calf pain or tenderness noted. - Gastrointestinal Gastrointestinal Comment(s): Abdomen soft, nontender, nondistended. Active bowel sounds present 4 quadrants. Tolerating diet. Positive bowel movement 08/16/20 - Genitourinary Genitourinary Comment(s): Continues to void - Integumentary Integumentary Comment(s): Skin is warm and dry - Neurologic Neurologic: Present: CNII-XII intact - Musculoskeletal Musculoskeletal: Present: gait normal, strength equal bilaterally - Psychiatric Psychiatric: Present: A&O x's 3, appropriate affect, intact judgment & insight - Allied health notes Allied health notes reviewed: nursing - Labs CBC & Chem 7: 08/17/20 06:23 08/17/20 06:23 Labs: Abnormal Lab Results - Last 24 Hours (Table) 08/16/20 08/17/20 08/17/20 Range/Units 16:38 06:23 06:23 RBC (4.30-5.90) m/uL Hgb (13.0-17.5) gm/dL Hct (39.0-53.0) % APTT 42.3 H (22.0-30.0) sec Sodium 135 L (137-145) mmol/L Chloride 114 H (98-107) mmol/L Carbon Dioxide 21 L (22-30) mmol/L BUN 28 H (9-20) mg/dL Creatinine 1.93 H (0.66-1.25) mg/dL Glucose 103 H (74-99) mg/dL POC Glucose (mg/dL) 108 H (75-99) mg/dL Calcium 7.7 L (8.4-10.2) mg/dL Total Protein 5.2 L (6.3-8.2) g/dL Albumin 2.7 L (3.5-5.0) g/dL 08/17/20 Range/Units 06:23 RBC 2.25 L (4.30-5.90) m/uL Hgb 7.3 L (13.0-17.5) gm/dL Hct 21.2 L (39.0-53.0) % APTT (22.0-30.0) sec Sodium (137-145) mmol/L Chloride (98-107) mmol/L Carbon Dioxide (22-30) mmol/L BUN (9-20) mg/dL Creatinine (0.66-1.25) mg/dL Glucose (74-99) mg/dL POC Glucose (mg/dL) (75-99) mg/dL Calcium (8.4-10.2) mg/dL Total Protein (6.3-8.2) g/dL Albumin (3.5-5.0) g/dL Microbiology - Last 24 Hours (Table) 08/13/20 21:58 Blood Culture - Preliminary Blood No Growth after 72 hours 08/15/20 09:03 Nasal Screen MRSA/MSSA - Final Nasal Swab - Imaging and Cardiology CT scan - chest: report reviewed, image reviewed Assessment and Plan Assessment: 1. Triple-vessel coronary artery disease, non-STEMI this admission 2. History of coronary artery disease with stent placement to the right coronary artery in 2004 3. Hypertension 4. Hyperlipidemia, treated, cholesterol 161, LDL 85 5. Type 1 insulin-dependent diabetes with insulin pump in place and peripheral neuropathy, hemoglobin A1c 8.1% 6. Chronic kidney disease stage IV with chronic anemia 7. Current tobacco dependence, FEV1 78% of predicted 8. Chronic right foot wound with MRSA infection in 2014 9. 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 Dupuytren's contracture to bilateral hands 11. Occasional EtOH use, 1-2 drinks weekly 12. Occasional marijuana use 13. Family history of premature coronary artery disease with both father and brother having CABG in their early 50s 14. Both parents from brain aneurysm in their 70s 15. Bilateral internal carotid artery stenosis, right greater than 70%, left 50-69%, right and left vertebrals with retrograde flow Plan: 1. Continue aspirin, statin, beta jaxon therapy. Recommend discontinuing IV heparin to avoid HIT, denies chest pain 2. Encourage incentive spirometry use 10 times every hour while awake. Smoking cessation encouraged 3. Increase activity, ambulate as tolerated. 4. Nephrology consulted, appreciate recommendations 5. CTA to evaluate carotid arteries, subclavian arteries and aortic arch needs to be completed prior to surgical intervention, should be done today 6. Anemia needs to be addressed, would like hemoglobin/hematocrit higher prior to going into surgery. Type and screen ordered for tomorrow 7. Heart catheterization and transthoracici films reviewed yesterday with Dr. Mann and discussed with the patient 8. More recommendations to follow regarding timing of surgery once CTA has been completed, anemia have been addressed 9. Medical management of other comorbidities per primary care service Time with Patient: Greater than 30
--- NOTE | 2020-08-17 10:08 | P.PN ---
Subjective Progress Note Date: 08/17/20 Principal diagnosis: This 59-year-old male seen in consultation because of acute kidney injury. He had acute PA, and had cardiac catheterization on 08/13/2020 with three-vessel di sease noted. The cardiac catheterization was unrelated to his acute kidney injury as his creatinine was 3.17 on admission and before cardiac catheterization Subsequently his creatinine improved to 2.1 and further to 1.93 as of this morning Is known with chronic kidney disease secondary diabetic nephropathy with creatinine 2.8 in April at our office but 1.8 here in January 2020. He is also noted to have peripheral vascular disease with amputation of several left second and third toe in the past, additionally he is known to have carotid artery disease and therefore most likely has renovascular disease as well Currently he is asymptomatic no chest pain or shortness of breath feels good no dizziness no fever chills nausea vomiting diarrhea Objective - Vital Signs Vital signs: Vital Signs Temp 97.9 F 08/17/20 08:15 Pulse 85 08/17/20 08:15 Resp 18 08/17/20 08:15 BP 151/70 08/17/20 08:15 Pulse Ox 100 08/17/20 08:15 Intake & Output 08/16/20 08/17/20 08/17/20 18:59 06:59 18:59 Intake Total 1710 400.003 Output Total 500 Balance 1210 400.003 Weight 60.5 kg 60.6 kg Intake: IV 500 Sodium Chloride 0.9% 1, 500 000 ml @ 100 mls/hr IV . Q10H JACKI Rx#:[id number] Intake, IV Titration 250 160.003 Amount Heparin Sod,Pork in 0.45% 250 160.003 NaCl 25,000 unit In 0.45 % NaCl 1 250ml.bag @ 12 UNITS/KG/HR 6.913 mls/hr IV .Q24H JACKI Rx#: [id number] Oral 960 240 Output: Urine 500 Other: Voiding Method Urinal # Voids 1 Examination is awake alert oriented comfortable HEENT exam no JVP neck is supple no facial asymmetry Lungs are clear to auscultation good air entry bilaterally Heart sounds unremarkable for any murmur rub gallop Abdomen soft nontender no ascites organomegaly Extremity exam was no edema Neurologically awake alert oriented neurologically - Labs CBC & Chem 7: 08/17/20 06:23 08/17/20 06:23 Labs: Abnormal Lab Results - Last 24 Hours (Table) 08/16/20 08/17/20 08/17/20 Range/Units 16:38 06:23 06:23 RBC (4.30-5.90) m/uL Hgb (13.0-17.5) gm/dL Hct (39.0-53.0) % APTT 42.3 H (22.0-30.0) sec Sodium 135 L (137-145) mmol/L Chloride 114 H (98-107) mmol/L Carbon Dioxide 21 L (22-30) mmol/L BUN 28 H (9-20) mg/dL Creatinine 1.93 H (0.66-1.25) mg/dL Glucose 103 H (74-99) mg/dL POC Glucose (mg/dL) 108 H (75-99) mg/dL Calcium 7.7 L (8.4-10.2) mg/dL Total Protein 5.2 L (6.3-8.2) g/dL Albumin 2.7 L (3.5-5.0) g/dL 08/17/20 Range/Units 06:23 RBC 2.25 L (4.30-5.90) m/uL Hgb 7.3 L (13.0-17.5) gm/dL Hct 21.2 L (39.0-53.0) % APTT (22.0-30.0) sec Sodium (137-145) mmol/L Chloride (98-107) mmol/L Carbon Dioxide (22-30) mmol/L BUN (9-20) mg/dL Creatinine (0.66-1.25) mg/dL Glucose (74-99) mg/dL POC Glucose (mg/dL) (75-99) mg/dL Calcium (8.4-10.2) mg/dL Total Protein (6.3-8.2) g/dL Albumin (3.5-5.0) g/dL Microbiology - Last 24 Hours (Table) 08/13/20 21:58 Blood Culture - Preliminary Blood No Growth after 72 hours 08/15/20 09:03 Nasal Screen MRSA/MSSA - Final Nasal Swab Assessment and Plan Assessment: Impression 1. Acute kidney injury from prerenal from acute PA creatinine peaked at 3.17 on the day of admission and is down to 1.93 this morning. 2. Chronic kidney disease III to stage IV secondary to diabetic nephropathy with a baseline creatinine of about 2.8 in the office and April, and was 1.8 here in January 2020. 3. Acute PA status post cardiac catheterization 08/13/2020, triple-vessel disease and previous stents 4. Mild degree of non-gap acidosis. Gap is 0. With normal sodium and potassium, phosphate and slightly low at albumin 2.7, rule out myeloma, although unlikely 5. Likely has renovascular disease as he has Peripheral vascular disease, coronary artery disease, carotid artery disease Recommendation 1. He is scheduled for a computed tomography scan with dye to assess his carotids as well as his aorta for his coronary artery bypass graft His risk of ATN is calculated at 14% based on his risk factor calculation based on 80 mL of contrast. Risk of dialysis 0.1% at these approximation. Patient is aware of the risks and accepts the risks. He is currently on IV fluids normal saline prior to this dry exposure we'll follow his labs closely
[2020-08-17] MEDS: SODIUM CHLORIDE 0.9% 1,000 ML IV SCH ×4 (10:42→21:51)
--- NOTE | 2020-08-17 10:42 | P.PN ---
Subjective Progress Note Date: 08/17/20 Non-ST VT, acute kidney failure, right-sided severe stenosis of the carotid artery, multiple coronary artery disease and involvement, type 2 diabetes on insulin pump, hypertension, hyperlipidemia and COPD. 59-year-old male one of Dr. Roach's patient with past medical history of diabetes on insulin pump, history of hypertension, hyperlipidemia, chronic neuropathy who is also noted to have coronary artery disease post PCI and stent placement back in 2004 was also has been having chronic kidney disease taste for. Patient presented to the emergency department today 08/13/2020 complaining of body ache all over his body along with numbness with worsening shortness of breath with nonspecific chest tightness or pressure and claims his neuropathy has been a lot worse he could not feel his feet and hands. His blood sugar has been slightly bit elevated as well. 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 Rivera surprisingly had multiple vessel disease with 95% blockage in the mid LAD 60-70% blockage of the OM1 100% blockage of the small OM to and 80% mid circumflex with 85% of mid RCA no angioplasty was require the patient will be started on aggressive risk factor modification and management along with consult cardiothor acic for possible CABG. 08/14: Patient evaluated this morning, resting in bed, in no acute distress. Patient is currently undergoing testing for possible coronary artery bypass surgery with the cardiothoracic team. Patient had carotid ultrasound that showed severe right ICA stenosis and moderate left ICA stenosis. Patient became very argumentative and agitated this morning after discussion regarding his insulin pump. Informed patient that the ICU nurse could not go to his pharmacy to turkey picker insulin refills for his insulin pump and family would have to make arrangements to do this. If patient and family are agreeable to this and patient has a working insulin pump with the refill of insulin, patient may use his pump to manage his own sugar. 08/15: Patient remained ICU, had severe stenosis of the right carotid artery might need carotid endarterectomy, in the meanwhile with the use of dye and his kidney function currently is not able to go for CT of the neck will be waiting until Tuesday. Cardiothoracic surgery indicated that he need multi-vessel CABG and the same time might require carotid endarterectomy the same time such an arrangement can be probably done early next week. He seen nephrology kidney function slightly better today. 08/16 patient remains in ICU. Underwent CT of the chest today with CTA neck pending. Patient denies any symptoms of chest pain or shortness of breath. Vitals are stable with temp of 98.5 pulse 85 respiratory rate 13 blood pressure 160/104. Blood work suggesting hemoglobin stable at 7.1, sodium 135 creatinine 2.13 BUN 35 CO2 21 chloride 114 blood sugar 69 this morning. Patient continues to use his own insulin pump . Patient agrees on removing the insulin pump close to the surgery. 08/17 patient examined bedside on the floor. Denies any chest pain or shortness of breath. Denies any dizziness or change in mental status. Vitals suggests a temp of 97.8 pulse 85 respiratory rate 18 blood pressure 151/70. assessed sodium 135 chloride 114 CO2 of 21 creatinine improved to 1.93. BUN improved to 28. CT neck with contrast to be completed today. Heparin drip discontinued. Continue IV fluids post CT with contrast 48 hours to prevent contrast-induced nephropathy ROS CONSTITUTIONAL: Well-developed no acute respiratory distress. EYES: No icterus sclerae, no conjunctivitis. EARS, NOSE, MOUTH, THROAT, and FACE: No sore throat, lymphadenopathy, carotid bruits or deformity. RESPIRATORY: No SOB cough or wheezes. CARDIOVASCULAR: No CP, Palpitation, PND, Orthopnea, or angina. GASTROINTESTINAL: No Abd pain, Nausea or vomiting, no Diarrhea or constipation, No GI Bleed, no distention or masses. GENITOURINARY: Negative for Hematuria or UTI, no kidney stones. INTEGUMENT/BREAST: Negative for any muscular injury with mild osteoarthritis.. HEMATOLOGIC/LYMPHATIC: Negative for bleed or purpura. MUSCULOSKELTAL: Negative for Myalgia or arthralgia. NEURLOGICAL: No LOC, Sz or syncope, blurred vision dizziness or abnormality.. BEHAVIORAL/PSYCH: Negative. ENDOCRINE: Negative. Objective - Vital Signs Vital signs: Vital Signs Temp 97.9 F 08/17/20 08:15 Pulse 85 08/17/20 08:15 Resp 18 08/17/20 08:15 BP 151/70 08/17/20 08:15 Pulse Ox 100 08/17/20 08:15 Intake & Output 08/16/20 08/17/20 08/17/20 18:59 06:59 18:59 Intake Total 1710 400.003 Output Total 500 Balance 1210 400.003 Weight 60.5 kg 60.6 kg Intake: IV 500 Sodium Chloride 0.9% 1, 500 000 ml @ 100 mls/hr IV . Q10H JACKI Rx#:[id number] Intake, IV Titration 250 160.003 Amount Heparin Sod,Pork in 0.45% 250 160.003 NaCl 25,000 unit In 0.45 % NaCl 1 250ml.bag @ 12 UNITS/KG/HR 6.913 mls/hr IV .Q24H AJCKI Rx#: [id number] Oral 960 240 Output: Urine 500 Other: Voiding Method Urinal # Voids 1 - Exam General Appearance: Alert, cooperative, no distress, appears stated age. Neck HEENT: Supple, no lymphadenopathy, no thyroid enlargement, right carotid bruits. Lungs: Clear to auscultation without crackles or wheezes no rhonchi, no deformity. Chest Wall: Chest wall normal expansion with deep inspiration no tenderness and no deformity was found on exam, no costochondral pain or discomfort. Heart: Regular rate and rhythm, S1, S2 normal, no murmur, rub or gallop. Back: Symmetric, no curvature, ROM normal, no CVA tenderness. Abdomen: Soft, non-tender, bowel sounds active all four quadrants, no masses, no organomegaly. Extremities: Extremities normal, atraumatic, no cyanosis or edema. Pulses: 2+ and symmetric. Skin: Skin color, texture, tugor normal, no rashes or lesions. Neurologic: Alert oriented x3 cranial nerves II through XII intact, no motor deficit, no abnormal balance or gait. Slight peripheral neuropathy with lack of sensation of the hands and feet. - Labs CBC & Chem 7: 08/17/20 06:23 08/17/20 06:23 Labs: Abnormal Lab Results - Last 24 Hours (Table) 08/16/20 08/17/20 08/17/20 Range/Units 16:38 06:23 06:23 RBC (4.30-5.90) m/uL Hgb (13.0-17.5) gm/dL Hct (39.0-53.0) % APTT 42.3 H (22.0-30.0) sec Sodium 135 L (137-145) mmol/L Chloride 114 H (98-107) mmol/L Carbon Dioxide 21 L (22-30) mmol/L BUN 28 H (9-20) mg/dL Creatinine 1.93 H (0.66-1.25) mg/dL Glucose 103 H (74-99) mg/dL POC Glucose (mg/dL) 108 H (75-99) mg/dL Calcium 7.7 L (8.4-10.2) mg/dL Total Protein 5.2 L (6.3-8.2) g/dL Albumin 2.7 L (3.5-5.0) g/dL 08/17/20 Range/Units 06:23 RBC 2.25 L (4.30-5.90) m/uL Hgb 7.3 L (13.0-17.5) gm/dL Hct 21.2 L (39.0-53.0) % APTT (22.0-30.0) sec Sodium (137-145) mmol/L Chloride (98-107) mmol/L Carbon Dioxide (22-30) mmol/L BUN (9-20) mg/dL Creatinine (0.66-1.25) mg/dL Glucose (74-99) mg/dL POC Glucose (mg/dL) (75-99) mg/dL Calcium (8.4-10.2) mg/dL Total Protein (6.3-8.2) g/dL Albumin (3.5-5.0) g/dL Microbiology - Last 24 Hours (Table) 08/13/20 21:58 Blood Culture - Preliminary Blood No Growth after 72 hours 08/15/20 09:03 Nasal Screen MRSA/MSSA - Final Nasal Swab Assessment and Plan Plan: 1 non-ST VT: With multiple coronary artery disease involvement patient did not require any angioplasty or stent placement at this point patient will be seen cardiothoracic surgeon for possible need for multi-vessel bypass surgery. Continue secondary prevention. 2 acute kidney injury with acute kidney failure on stage IV chronic kidney disease: Hydration we'll consult nephrology repeat BUN/creatinine 24 hours. Given IV fluids at 100 mL per hour 3 severe stenosis of the right carotid artery: Patient most likely require carotid endarterectomy which can be and might need to be done before open heart surgery. 4 diabetes: Most likely type I on insulin pump will continue patient on Accu- Chek with sliding scales coverage and resume his insulin pump at this point. His blood sugar and insulin pump insulin low 100. 5 hypertension: Has been on enalapril 2.5 mg a day surprisingly is not on any beta jaxon. 6 hyperlipidemia: Resume Crestor at 10 mg daily. 7 chronic advance diabetic peripheral neuropathy: Patient should be on at least a starter of neuropathy medication like gabapentin or Lyrica something highly dean ggested to be done as an outpatient. 8 mild anemia: Iron supplement and repeat CBC watch for any GI bleed. Blood transfusion: Above 7 Planning: Waiting for the kidney function to improve slightly bit before he goes for CT of the neck to the side and the severity of the carotid stenosis then the arrangement to do open heart surgery and carotid surgery altogether the same time possibly early next week.
--- NOTE | 2020-08-17 11:31 | CT ---
EXAMINATION TYPE: CT angio neck DATE OF EXAM: 08/17/2020 HISTORY: Presurgical study. Abnormal outside carotid ultrasound COMPARISON: NONE CT DLP: 402.9 mGycm. Automated Exposure Control for Dose Reduction was Utilized. TECHNIQUE: CTA scan of the neck is performed with IV Contrast, patient injected with 65 mL of Isovue 370, axial images are obtained, coronal and sagittal reformatted images are reviewed. Three-D recons tructed images images created on an independent workstation and reviewed. FINDINGS: Carotid/Vascular Structures: Four vessel origin from aortic arch which is normal variant. No signific ant plaque or stenosis. Right common carotid artery shows normal origin from right brachiocephalic ar ava. Mild calcified plaque along course of the left common carotid artery. There is [id number] calcified plaque right carotid bulb extending into the proximal internal carotid artery. Shortly aft er this portion there is severe mixed dominantly noncalcified plaque causing complete occlusion over a short segment of the right internal carotid artery. There is reconstitution on axial image 70. Zina darvin of right internal carotid artery shows mild calcified plaque in the supraclinoid segment. Paten t external carotid artery without significant plaque or stenosis. There is more prominent moderate to severe calcified plaque left carotid bulb extending into proximal internal carotid artery without si gnificant stenosis. Shortly past this point there is moderate to severe mixed plaque causing signific ant stenosis, lumen diameter narrowed to 2.1 mm and reconstitutes to 5.6 mm distal to this. Remainder right internal carotid artery shows no significant plaque or stenosis. Mild to moderate calcified pl aque in the petrous and supraclinoid segment. Patent external carotid artery without significant plaq ue or stenosis. Codominant vertebral arteries patent to basilar junction noted. Other: No additional significant abnormality is seen IMPRESSION: Focal fairly severe plaque shortly after bilateral carotid bulbs. Complete occlusion of t he proximal right internal carotid artery over a short segment. Significant stenosis proximal left in ternal carotid artery measured up to 65%.
--- NOTE | 2020-08-17 12:44 | PN ---
PROGRESS NOTE PULMONARY/CRITICAL CARE PROGRESS NOTE: DATE OF SERVICE: August 17, 2020. This is a 59-year-old gentleman who was recently evaluated by Cardiology for CAD. He was found to have quite severe disease involving multiple coronary arteries. The patient is planning to have bypass sometime early this week. There were some issues that were still remaining to be evaluated including his carotid arteries. From the pulmonary standpoint, his lung function was excellent. His FEV1 and MVV would suggest no increased operative risk. This is despite the fact that he smoked for many years. 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 Currently, the patient denies any pain or difficulty breathing. PHYSICAL EXAMINATION: VITAL SIGNS: Current vital signs include temperature 97.9, heart rate 85, respiratory rate 18, blood pressure 151/70, mean 97, room air saturations 100%. Appears in no acute distress. HEENT: Examination is grossly unremarkable. NECK: Supple full range of motion. No adenopathy. Neck veins are flat. CARDIOVASCULAR: Examination reveals regular rhythm rate. S1, S2 normal. No S3, S4, or murmur. Heart sounds are distant. LUNGS: Reveal clear breath sounds. No wheezes, rhonchi, or crackles. ABDOMEN: Soft, bowel sounds are heard. EXTREMITIES: Intact. No cyanosis, clubbing, or edema. SKIN: Without rash. NEUROLOGIC: Examination is brief but nonfocal. LABS: Reviewed. White count 4.9, hemoglobin 7.3, hematocrit 21.2, platelet count 172,000. PTT 42.3. Sodium 135, potassium 4, chloride 114, CO2 21, anion gap is 0, BUN and creatinine were 28, 1.93. The rest of the labs look okay. Microbiology is currently negative. IMAGING: A chest CT shows chronic changes without an acute pulmonary process. CTA of the neck, pending. CURRENT MEDICATIONS: Reviewed. The patient is on Tylenol with codeine, aspirin, Lipitor, Aranesp, iron, IV heparin, insulin, lisinopril, metoprolol, Bactroban ointment, Protonix and saline IV. ASSESSMENT: 1. Acute non ST-segment elevation myocardial infarction. The patient's heart catheterization reveals severe coronary artery disease, with 95% stenosis of the mid LAD, 60-70% stenosis of the obtuse marginal 1, 100% stenosis of the obtuse marginal 2, 80% stenosis of the mid circumflex and 85% stenosis of the right coronary artery. 2. Severe carotid artery stenosis, right greater than left. 3. History of coronary artery disease, with previous stent placement in the proximal and mid RCA, 2004. 4. Diabetes mellitus, managed on an insulin pump. 5. Diabetic neuropathy. 6. Stage 4 chronic kidney disease. 7. Chronic anemia. 8. Peripheral vascular occlusive disease. 9. Prior amputation of the left 2nd and 3rd toe. 10.Bilateral dupuytren's contractures. 11.Chronic and ongoing tobacco dependence. 12.No significant lung disease based on preoperative spirometry. PLAN: The patient's preoperative spirometry would predict that he has no increased operative risk from the pulmonary standpoint. There are a number of issues to be resolved as yet including his carotid artery disease. No data as to when he will have open-heart surgery. We will continue to follow. Prognosis is guarded. Again we encourage to him the importance of smoking cessation once and for all. MMODL / IJN: [id number] /
[2020-08-17] MEDS: FERROUS SULFATE 325 MG TAB PO SCH (21:32)
[2020-08-18] MEDS: METOPROLOL TARTRATE 25 MG TAB PO SCH ×2 (07:59→21:05)
[2020-08-18] MEDS: lisinopriL 10 MG TAB PO SCH (07:59)
[2020-08-18] MEDS: ATORVASTATIN 80 MG TAB PO SCH (07:59)
[2020-08-18] MEDS: MUPIROCIN 2% OINT 22 GM TUBE NASAL SCH ×2 (07:59→21:05)
[2020-08-18] MEDS: PANTOPRAZOLE 40 MG TABLET PO SCH (07:59)
[2020-08-18 08:14] LABS: HCT 21.6 % (39.0-53.0); HGB 7.3 gm/dL (13.0-17.5); MCH 32.1 pg (25.0-35.0); MCV 94.3 fL (80.0-100.0); Mean Platelet Volume 8.4; Platelet Count 188 k/uL (150-450); RBC 2.29 m/uL (4.30-5.90); WBC 4.8 k/uL (3.8-10.6)
[2020-08-18 08:26] LABS: Potassium 4.2 mmol/L (3.5-5.1)
--- NOTE | 2020-08-18 11:26 | P.PN ---
Subjective Patient is seen in follow-up for acute kidney injury on chronic kidney disease. Renal function is stable. No chest pain or shortness of breath. Has been voiding. Blood pressure stable. Vital signs are stable. General: The patient appeared well nourished and normally developed. HEENT: Head exam is unremarkable. Neck is without jugular venous distension. LUNGS: Breath sounds decreased. HEART: Rate and Rhythm are regular. ABDOMEN: Soft, nontender. EXTREMITITES: No edema. Objective - Vital Signs Vital signs: Vital Signs Temp 98.1 F 08/18/20 07:55 Pulse 87 08/18/20 08:00 Resp 18 08/18/20 07:55 BP 123/65 08/18/20 07:55 Pulse Ox 100 08/18/20 07:55 Intake & Output 08/17/20 08/18/20 08/18/20 18:59 06:59 18:59 Intake Total 1300.003 256 Balance 1300.003 256 Intake: IV 900 20 Sodium Chloride 0.9% 1, 900 20 000 ml @ 100 mls/hr IV . Q10H JACKI Rx#:[id number] Intake, IV Titration 160.003 Amount Heparin Sod,Pork in 0.45% 160.003 NaCl 25,000 unit In 0.45 % NaCl 1 250ml.bag @ 12 UNITS/KG/HR 6.913 mls/hr IV .Q24H JACKI Rx#: [id number] Oral 240 236 Other: Voiding Method Urinal # Voids 3 1 1 - Labs CBC & Chem 7: 08/18/20 06:43 08/18/20 06:43 Labs: Abnormal Lab Results - Last 24 Hours (Table) 08/18/20 08/18/20 Range/Units 06:43 06:43 RBC 2.29 L (4.30-5.90) m/uL Hgb 7.3 L (13.0-17.5) gm/dL Hct 21.6 L (39.0-53.0) % Sodium 136 L (137-145) mmol/L Chloride 112 H (98-107) mmol/L BUN 23 H (9-20) mg/dL Creatinine 1.92 H (0.66-1.25) mg/dL Calcium 8.0 L (8.4-10.2) mg/dL Microbiology - Last 24 Hours (Table) 08/13/20 21:58 Blood Culture - Preliminary Blood No Growth after 96 hours Assessment and Plan Plan: Assessment: 1. Acute kidney injury mostly prerenal secondary to acute NC as well as contrast-induced acute kidney injury. Underwent cardiac catheterization on 08/13/2020. Again received IV contrast on 08/17/2020 for a neck CTA. Creatinine stable at 1.92 today. 2. Chronic kidney disease stage IIIB secondary to diabetic kidney disease. Creatinine 1.81 as of 02/01/2020. 3. Coronary artery disease status post cardiac catheterization on August 13. Has triple-vessel disease. 4. Metabolic acidosis secondary to acute kidney injury and IV fluids. 5. Anemia of chronic kidney disease maintained on Aranesp. Mild iron deficiency noted. 6. Hypertension with chronic kidney disease. Controlled. Plan: Stop IV fluids. Encouraged oral intake. IV iron today. Continue to monitor renal function and urine output.
[2020-08-18] MEDS ORDERED: SODIUM FERRIC GLUCONAT-SUCROSE 125 MG in SODIUM CHLORIDE 0.9% 100 ML IVPB ONE (12:00)
--- NOTE | 2020-08-18 12:03 | P.PN ---
Subjective Progress Note Date: 08/18/20 HISTORY OF PRESENT ILLNESS 59-year-old male one of Dr. Roach's patient with past medical history of diabe zach on insulin pump, history of hypertension, hyperlipidemia, chronic neuropathy who is also noted to have coronary artery disease post PCI and stent placement back in 2004 was also has been having chronic kidney disease taste for. Patient presented to the emergency department today 08/13/2020 complaining of body ache all over his body along with numbness with worsening shortness of breath with n onspecific chest tightness or pressure and claims his neuropathy has been a lot worse he could not feel his feet and hands. His blood sugar has been slightly bit elevated as well. 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 Rivera surprisingly had multiple vessel disease with 95% blockage in the mid LAD 60-70% blockage of the OM1 100% blockage of the small OM to and 80% mid circumflex with 85% of mid RCA no angioplasty was require the patient will be started on aggressive risk factor modification and management along with consult cardiothoracic for possible CABG. 08/14: Patient evaluated this morning, resting in bed, in no acute distress. Patient is currently undergoing testing for possible coronary artery bypass s urgery with the cardiothoracic team. Patient had carotid ultrasound that showed severe right ICA stenosis and moderate left ICA stenosis. Patient became very argumentative and agitated this morning after discussion regarding his insulin pump. Informed patient that the ICU nurse could not go to his pharmacy to worm picker insulin refills for his insulin pump and family would have to make arrangements to do this. If patient and family are agreeable to this and patient has a working insulin pump with the refill of insulin, patient may use his pump to manage his own sugar. 08/15: Patient remained ICU, had severe stenosis of the right carotid artery might need carotid endarterectomy, in the meanwhile with the use of dye and his kidney function currently is not able to go for CT of the neck will be waiting until Tuesday. Cardiothoracic surgery indicated that he need multi-vessel CABG and the same time might require carotid endarterectomy the same time such an arrangement can be probably done early next week. He seen nephrology kidney function slightly better today. 08/16 patient remains in ICU. Underwent CT of the chest today with CTA neck pending. Patient denies any symptoms of chest pain or shortness of breath. Vitals are stable with temp of 98.5 pulse 85 respiratory rate 13 blood pressure 160/104. Blood work suggesting hemoglobin stable at 7.1, sodium 135 creatinine 2.13 BUN 35 CO2 21 chloride 114 blood sugar 69 this morning. Patient continues to use his own insulin pump . Patient agrees on removing the insulin pump close to the surgery. 08/17 patient examined bedside on the floor. Denies any chest pain or shortness of breath. Denies any dizziness or change in mental status. Vitals suggests a temp of 97.8 pulse 85 respiratory rate 18 blood pressure 151/70. assessed sodium 135 chloride 114 CO2 of 21 creatinine improved to 1.93. BUN improved to 28. CT neck with contrast to be completed today. Heparin drip discontinued. Continue IV fluids post CT with contrast 48 hours to prevent contrast-induced nephropathy 08/18: Patient states he is feeling better today. He has been cooperative. CAT scan angiogram of the neck revealed significant stenosis of the proximal right internal carotid artery. Plan to add consult with vascular surgery for evaluation. He denies having any chest pain or shortness of breath. No lightheadedness or dizziness. Nephrology is soft IV fluids. IV iron has been ordered REVIEW OF SYSTEMS CONSTITUTIONAL: Well-developed no acute respiratory distress. No fever. EYES: No icterus sclerae, no conjunctivitis. EARS, NOSE, MOUTH, THROAT, and FACE: No sore throat, lymphadenopathy, carotid bruits or deformity. RESPIRATORY: No SOB cough or wheezes. CARDIOVASCULAR: No CP, Palpitation, PND, Orthopnea, or angina. GASTROINTESTINAL: No Abd pain, Nausea or vomiting, no Diarrhea or constipation, No GI Bleed, no distention or masses. GENITOURINARY: Negative for Hematuria or UTI, no kidney stones. INTEGUMENT/BREAST: Negative for any muscular injury with mild osteoarthritis.. HEMATOLOGIC/LYMPHATIC: Negative for bleed or purpura. MUSCULOSKELTAL: Negative for Myalgia or arthralgia. NEURLOGICAL: No LOC, Sz or syncope, blurred vision dizziness or abnormality.. BEHAVIORAL/PSYCH: Negative. ENDOCRINE: Negative. PHYSICAL EXAMINATION Gen: This is a 59-year-old male. He is resting in bed and appears to be comfortable and in no acute distress. HEENT: Head is atraumatic, normocephalic. Pupils equal, round. Sclerae is anicteric. NECK: Supple. No JVD. No lymphadenopathy. No thyromegaly. LUNGS: Clear to auscultation. No wheezes or rhonchi. No intercostal retractions. HEART: Regular rate and rhythm. No murmur. ABDOMEN: Soft. Bowel sounds are present. No masses. No tenderness. EXTREMITIES: No pedal edema. No calf tenderness. NEUROLOGICAL: Patient is awake, alert and oriented x3. Cranial nerves 2 through 12 are grossly intact. ASSESSMENT AND PLAN 1. Acute non-ST elevated myocardial infarction. Patient is status post heart catheterization revealing severe coronary artery disease. Cardiothoracic surgery evaluation for CABG. Continue aspirin 81 mg daily, Lipitor 80 mg daily, Lopressor 25 mg twice daily. 2. Acute kidney injury with stage IV chronic kidney disease nephrology consult appreciated. IV fluids discontinued. 3. Severe carotid artery stenosis, right. Patient may require carotid endarterectomy prior to open heart surgery. Vascular surgery consult. 4. Diabetes mellitus type 1, on insulin pump. 5. Hypertension. Continue lisinopril 10 mg daily, Lopressor 25 mg twice daily. 6. Hyperlipidemia. Continue atorvastatin 80 mg daily. 7. Chronic advanced diabetic peripheral neuropathy: Patient should be on at [facility] a starter of neuropathy medication like gabapentin or Lyrica something highly suggested to be done as an outpatient. 8. Anemia of chronic kidney disease. Continue Aranesp, ferrous sulfate, Ferrl ecit infusion today. 9. Chronic tobacco use and dependence 10. Peripheral vascular occlusive disease. 11. History of coronary artery disease with previous stent placement in the proximal and mid RCA in 2004. Continue as in #1. 12. DVT prophylaxis. 13. GI prophylaxis. Protonix. Discharge plan: Most likely home with homecare. Impression and plan of care have been directed as dictated by the signing physician. Cecille Marcum nurse practitioner acting as scribe for signing physician. Objective - Vital Signs Vital signs: Vital Signs Temp 98.1 F 08/18/20 07:55 Pulse 87 08/18/20 07:55 Resp 18 08/18/20 07:55 BP 123/65 08/18/20 07:55 Pulse Ox 100 08/18/20 07:55 Intake & Output 08/17/20 08/18/20 08/18/20 18:59 06:59 18:59 Intake Total 1300.003 Balance 1300.003 Intake: IV 900 Sodium Chloride 0.9% 1, 900 000 ml @ 100 mls/hr IV . Q10H [facility] Rx#:[id number] Intake, IV Titration 160.003 Amount Heparin Sod,Pork in 0.45% 160.003 NaCl 25,000 unit In 0.45 % NaCl 1 250ml.bag @ 12 UNITS/KG/HR 6.913 mls/hr IV .Q24H [facility] Rx#: [id number] Oral 240 Other: Voiding Method Urinal # Voids 3 1 - Labs CBC & Chem 7: 08/18/20 06:43 08/18/20 06:43 Labs: Abnormal Lab Results - Last 24 Hours (Table) 08/18/20 08/18/20 Range/Units 06:43 06:43 RBC 2.29 L (4.30-5.90) m/uL Hgb 7.3 L (13.0-17.5) gm/dL Hct 21.6 L (39.0-53.0) % Sodium 136 L (137-145) mmol/L Chloride 112 H (98-107) mmol/L BUN 23 H (9-20) mg/dL Creatinine 1.92 H (0.66-1.25) mg/dL Calcium 8.0 L (8.4-10.2) mg/dL Microbiology - Last 24 Hours (Table) 08/13/20 21:58 Blood Culture - Preliminary Blood No Growth after 96 hours
--- NOTE | 2020-08-18 13:45 | P.PN ---
Subjective This is a pleasant 59-year-old male who is admitted to the hospital with non-ST elevated myocardial infarction. He underwent cardiac cath eterization revealing severe triple vessel coronary artery disease. CTA of the neck revealed right internal carotid occlusion. He is seen and examined resting comfortably lying flat in bed in no acute distress. He denies symptoms of chest pain, shortness of breath, dizziness or palpitations. Blood pressure 165/74 heart rate 76 afebrile maintaining oxygen saturation on room air. Laboratory data reviewed, WBC 4.8, hemoglobin 7.3, platelets 188, sodium 136, potassium 4.2, creatinine 1.92. Currently maintained on metoprolol 25 mg twice a day, lisinopril 10 mg daily, atorvastatin 80 mg daily and aspirin 81 mg daily. GENERAL: Well-appearing, well-nourished and in no acute distress. NECK: Supple without JVD or thyromegaly. LUNGS: Breath sounds clear to auscultation bilaterally. Respiration equal and unlabored. No wheezes, rales or rhonchi. HEART: Regular rate and rhythm without murmurs, rubs or gallops. S1 and S2 heard. EXTREMITIES: Normal range of motion, no edema. No clubbing or cyanosis. Peripheral pulses intact. ASSESSMENT Non-ST elevated myocardial infarction Severe triple vessel coronary artery disease Type 1 diabetes mellitus Hypertension Dyslipidemia Chronic kidney disease Mitral regurgitation, mild-moderate Chronic nicotine dependence PLAN Continue current medical regimen. Patient awaiting vascular evaluation to determine surgical approach regarding carotid stenosis. Nurse Practitioner note has been reviewed, I agree with a documented findings and plan of care. Patient was seen and examined. Objective - Vital Signs Vital signs: Vital Signs Temp 98.1 F 08/18/20 07:55 Pulse 87 08/18/20 08:00 Resp 18 08/18/20 07:55 BP 123/65 08/18/20 07:55 Pulse Ox 100 08/18/20 07:55 Intake & Output 08/17/20 08/18/20 08/18/20 18:59 06:59 18:59 Intake Total 1300.003 256 Balance 1300.003 256 Intake: IV 900 20 Sodium Chloride 0.9% 1, 900 20 000 ml @ 100 mls/hr IV . Q10H [facility] Rx#:[id number] Intake, IV Titration 160.003 Amount Heparin Sod,Pork in 0.45% 160.003 NaCl 25,000 unit In 0.45 % NaCl 1 250ml.bag @ 12 UNITS/KG/HR 6.913 mls/hr IV .Q24H [facility] Rx#: [id number] Oral 240 236 Other: Voiding Method Urinal # Voids 3 1 1 - Labs CBC & Chem 7: 08/18/20 06:43 08/18/20 06:43 Labs: Abnormal Lab Results - Last 24 Hours (Table) 08/18/20 08/18/20 Range/Units 06:43 06:43 RBC 2.29 L (4.30-5.90) m/uL Hgb 7.3 L (13.0-17.5) gm/dL Hct 21.6 L (39.0-53.0) % Sodium 136 L (137-145) mmol/L Chloride 112 H (98-107) mmol/L BUN 23 H (9-20) mg/dL Creatinine 1.92 H (0.66-1.25) mg/dL Calcium 8.0 L (8.4-10.2) mg/dL Microbiology - Last 24 Hours (Table) 08/13/20 21:58 Blood Culture - Preliminary Blood No Growth after 96 hours
--- NOTE | 2020-08-18 14:32 | P.PN ---
Subjective Progress Note Date: 08/18/20 Principal diagnosis: Acute non-ST elevation myocardial infarction and severe coronary artery disease Patient was reevaluated today on 08/18/2020, patient is waiting for final decision regarding his surgery. He was found to have significant carotid artery disease, and decision is yet to be made regarding his carotid surgery and CABG. From the pulmonary perspective, patient was seen by us, and we'll clear him for surgery. Patient has no active pulmonary symptoms whatsoever. Labs today showed hemoglobin of 7.3 WBC count is 4.8 electrolytes are normal renal profile is abnormal with a BUN of 23 creatinine is 1.92. Objective - Vital Signs Vital signs: Vital Signs Temp 98.1 F 08/18/20 12:00 Pulse 76 08/18/20 13:59 Resp 18 08/18/20 12:00 BP 165/74 08/18/20 12:00 Pulse Ox 100 08/18/20 12:00 Intake & Output 08/17/20 08/18/20 08/18/20 18:59 06:59 18:59 Intake Total 1300.003 256 Balance 1300.003 256 Intake: IV 900 20 Sodium Chloride 0.9% 1, 900 20 000 ml @ 100 mls/hr IV . Q10H [facility] Rx#:[id number] Intake, IV Titration 160.003 Amount Heparin Sod,Pork in 0.45% 160.003 NaCl 25,000 unit In 0.45 % NaCl 1 250ml.bag @ 12 UNITS/KG/HR 6.913 mls/hr IV .Q24H [facility] Rx#: [id number] Oral 240 236 Other: Voiding Method Urinal # Voids 3 1 1 - Exam Gen: This is a 59-year-old male. He is resting in bed and appears to be comfortable and in no acute distress. HEENT: Head is atraumatic, normocephalic. Pupils equal, round. Sclerae is anicteric. NECK: Supple. No JVD. No lymphadenopathy. No thyromegaly. LUNGS: Clear to auscultation. No wheezes or rhonchi. No intercostal retractions. HEART: Regular rate and rhythm. No murmur. ABDOMEN: Soft. Bowel sounds are present. No masses. No tenderness. EXTREMITIES: No pedal edema. No calf tenderness. NEUROLOGICAL: Patient is awake, alert and oriented x3. Cranial nerves 2 through 12 are grossly intact. - Labs CBC & Chem 7: 08/18/20 06:43 08/18/20 06:43 Labs: Abnormal Lab Results - Last 24 Hours (Table) 08/18/20 08/18/20 Range/Units 06:43 06:43 RBC 2.29 L (4.30-5.90) m/uL Hgb 7.3 L (13.0-17.5) gm/dL Hct 21.6 L (39.0-53.0) % Sodium 136 L (137-145) mmol/L Chloride 112 H (98-107) mmol/L BUN 23 H (9-20) mg/dL Creatinine 1.92 H (0.66-1.25) mg/dL Calcium 8.0 L (8.4-10.2) mg/dL Microbiology - Last 24 Hours (Table) 08/13/20 21:58 Blood Culture - Preliminary Blood No Growth after 96 hours Assessment and Plan Assessment: Impression: Acute non-ST elevation myocardial infarction Severe coronary artery disease. Severe carotid artery disease/right carotid artery stenosis may require surgery prior to CABG. Acute on chronic kidney disease. Type 1 diabetes. Benign essential hypertension. Chronic anemia of chronic kidney disease. Peripheral vessel occlusive disease. Tobacco dependence syndrome. Recommendation: Awaiting to hear from different consultants and surgeries on the case. Cleared from our perspective for surgery as scheduled Will follow on an as-needed basis. Time with Patient: Less than 30
--- NOTE | 2020-08-18 14:33 | P.PN ---
Subjective Progress Note Date: 08/18/20 Principal diagnosis: Triple-vessel coronary artery disease, non-STEMI this admission, bilateral internal carotid artery stenosis, right 99%, left 65%, left subclavian artery stenosis less than 50% prior neck CTA, right and left vertebrals with retrograde flow on carotid dopplers. 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 Denies chest pain or shortness of breath. Remains in normal sinus rhythm and hemodynamically stable. Preoperative teaching continues. Neck CTA reviewed with Dr. Mann, also reviewed by Dr. Lugo and Dr. Rivera. Discussed with the patient this morning we are waiting on further recommendations for best course of treatment to give him optimal outcome, recognizing he is at increased risk for stroke due to his carotid disease. Objective - Vital Signs Vital signs: Vital Signs Temp 98.1 F 08/18/20 07:55 Pulse 87 08/18/20 08:00 Resp 18 08/18/20 07:55 BP 123/65 08/18/20 07:55 Pulse Ox 100 08/18/20 07:55 Intake & Output 08/17/20 08/18/20 08/18/20 18:59 06:59 18:59 Intake Total 1300.003 256 Balance 1300.003 256 Intake: IV 900 20 Sodium Chloride 0.9% 1, 900 20 000 ml @ 100 mls/hr IV . Q10H [facility] Rx#:[id number] Intake, IV Titration 160.003 Amount Heparin Sod,Pork in 0.45% 160.003 NaCl 25,000 unit In 0.45 % NaCl 1 250ml.bag @ 12 UNITS/KG/HR 6.913 mls/hr IV .Q24H [facility] Rx#: [id number] Oral 240 236 Other: Voiding Method Urinal # Voids 3 1 - Constitutional General appearance: Present: cooperative, no acute distress - Respiratory Details: Lungs sounds diminished bilaterally. Respirations even, nonlabored. Currently on room air with oxygen saturation 100%. Able to achieve 3000 mL on his incentive spirometry. Strong cough - Cardiovascular Details: S1, S2 present. Regular rate and rhythm, sinus rhythm on telemetry. Palpable peripheral pulses bilaterally, although decreased left radial pulse. No edema present. No calf pain or tenderness noted. - Gastrointestinal Gastrointestinal Comment(s): Abdomen soft, nontender, nondistended. Active bowel sounds present 4 quadrants. Tolerating diet. Positive bowel movement 08/16/20 - Genitourinary Genitourinary Comment(s): Continues to void - Integumentary Integumentary Comment(s): Skin is warm and dry - Neurologic Neurologic: Present: CNII-XII intact - Musculoskeletal Musculoskeletal: Present: gait normal, strength equal bilaterally - Psychiatric Psychiatric: Present: A&O x's 3, appropriate affect, intact judgment & insight - Allied health notes Allied health notes reviewed: nursing - Labs CBC & Chem 7: 08/18/20 06:43 08/18/20 06:43 Labs: Abnormal Lab Results - Last 24 Hours (Table) 08/18/20 08/18/20 Range/Units 06:43 06:43 RBC 2.29 L (4.30-5.90) m/uL Hgb 7.3 L (13.0-17.5) gm/dL Hct 21.6 L (39.0-53.0) % Sodium 136 L (137-145) mmol/L Chloride 112 H (98-107) mmol/L BUN 23 H (9-20) mg/dL Creatinine 1.92 H (0.66-1.25) mg/dL Calcium 8.0 L (8.4-10.2) mg/dL Microbiology - Last 24 Hours (Table) 08/13/20 21:58 Blood Culture - Preliminary Blood No Growth after 96 hours Assessment and Plan Assessment: 1. Triple-vessel coronary artery disease, non-STEMI this admission 2. History of coronary artery disease with stent placement to the right coronary artery in 2004 3. Hypertension 4. Hyperlipidemia, treated, cholesterol 161, LDL 85 5. Type 1 insulin-dependent diabetes with insulin pump in place and peripheral neuropathy, hemoglobin A1c 8.1% 6. Chronic kidney disease stage IV with chronic anemia 7. Current tobacco dependence, FEV1 78% of predicted 8. Chronic right foot wound with MRSA infection in 2015 9. 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 Dupuytren's contracture to bilateral hands 11. Occasional EtOH use, 1-2 drinks weekly 12. Occasional marijuana use 13. Family history of premature coronary artery disease with both father and brother having CABG in their early 50s 14. Both parents from brain aneurysm in their 70s 15. Bilateral internal carotid artery stenosis, right 99%, left 65%, left subclavian stenosis <50% per neck CTA, right and left vertebrals with retrograde flow Plan: 1. Continue aspirin, statin, beta jaxon therapy. 2. Encourage incentive spirometry use 10 times every hour while awake. Smoking cessation encouraged 3. Increase activity, ambulate as tolerated. 4. Nephrology consulted, appreciate recommendations 5. Discussion had between Dr. Mann and Dr. Rivera-patient to have angiogram of carotids today by Dr. Rivera with minimal dye to eval exact flow of carotid 6. Anemia needs to be addressed, would like hemoglobin/hematocrit higher prior to going into surgery. 7. More recommendations to follow regarding timing of surgery after angiogram completed, anemia addressed. Possibly off pump CABG by Dr. Chávez Tuesday08/20/20 dependent on outcome of angiogram 8. Medical management of other comorbidities per primary care service Time with Patient: Greater than 30
--- NOTE | 2020-08-18 15:23 | P.GSCN ---
History of Present Illness Consult date: 08/18/20 Reason for Consult: Right internal carotid artery stenosis Requesting physician: Mayo Bedoya History of present illness: This is a 59-year-old male patient who follows on an outpatient basis with Dr. Roach for primary care. 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 He presented to [facility] emergency room 08/14/20 with complaints of all over body aches, mostly confined to his arms and shoulders, associated with shortness of breath, and chest pain and pressure. He became concerned with his symptoms and was worried about Covid so he called EMS. In the emergency room chest x-ray was obtained demonstrating no active cardiopulmonary process. EKG demonstrated normal sinus rhythm with T-wave inversion in V2 through V6. His pain was relieved with administration of IV morphine. Lab work demonstrated white blood cell count 7.0, hemoglobin 10.6, creatinine 3.17 with BUN 67, lactic acid 4.4, pro-calcitonin 0.43, BNP 12,800, and troponin 7.3 with second troponin 6.5 and third troponin 4.9. Rapid Covid test was negative. The patient was diagnosed with non-STEMI and taken to the [facility] by Dr. Rivera which revealed mid LAD stenosis 95%, OM1 60-70%, OM to 100%, mid circumflex 80%, and mid RCA 85%. He was placed on IV heparin and transferred to the intensive care unit for further monitoring and evaluation with consultation placed cardiothoracic surgery for surgical revascularization recommendations. He has since been transferred to select care unit, he underwent a CT angiogram of the neck which showed focal fairly severe plaque shortly after bilateral carotid bulbs. Complete occlusion of the proximal right internal carotid artery over a short segment. Significant stenosis proximal left internal carotid artery measured up to 65%. Addendum showed significant stenosis but not complete occlusion over the short segment in the proximal right internal carotid artery, noncalcified plaque at origin of the left subclavian artery causing stenosis under 50%. No significant plaque and remainder of the subclavian arteries bilaterally. He also underwent bilateral carotid duplex which showed peak systolic velocity right ICA 583.2, with an ICA/CCA ratio 8.7. Peak systolic velocity left ICA 258.1, ICA/CCA ratio 3.4. Impression states hemodynamic significant stenosis of the proximal internal carotid artery on the right corresponding to greater than 70% diameter reduction. Hemodynamic significant stenosis of the proximal internal carotid artery on the left corresponds to approximately at least 50-69% diameter stenosis. Possible retrograde flow in the vertebral arteries although technologist was a technically difficult exam. Vascular surgery has been consulted regarding severe right internal carotid stenosis. Cardiothoracic surgery is planning for possible CABG on 04/20/2021. Dr. Rivera has the patient scheduled for a bilateral carotid angiogram this afternoon. The patient currently denies any shortness of breath, chest pain, visual changes, focal deficits, upper or lower extremity weakness, or dizziness. Review of Systems A 14 point review of systems was completed all pertinent positives and negatives as stated in the HPI. Past Medical History Past Medical History: Coronary Artery Disease (CAD), Diabetes Mellitus, Eye Diso rder, Hyperlipidemia, Renal Disease Additional Past Medical History / Comment(s): IDDM type I with insulin pump, CKD stage IV, polyneuropathy, dupuytren's bilateral hands, chronic R foot ulcer, chronic bilateral foot pain, chronic low back pain/fracture, R eye cataract History of Any Multi-Drug Resistant Organisms: MRSA Year Discovered:: 2014 MDRO Source:: right foot Past Surgical History: Heart Catheterization With Stent, Orthopedic Surgery Additional Past Surgical History / Comment(s): L hand fracture with pins, 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 He had type I diabetes and it ran strongly on father's side of family Mother Family Medical History: Vascular Disorder Additional Family Medical History / Comment(s): Mother from a brain aneurysm. Brother(s) Family Medical History: COPD, Coronary Artery Disease (CAD) Additional Family Medical History / Comment(s): Brother had CABG in his early 50s Daughter(s) Family Medical History: Renal Disease Additional Family Medical History / Comment(s): Daughter of kidney disease Medications and Allergies Home Medications Medication Instructions Recorded Confirmed Type Aspirin EC [Ecotrin Low Dose] 81 mg PO DAILY 01/31/20 08/13/20 History Insulin Aspart (For Pump) [NovoLOG 0.01 unit SQ-PUMP CONTINUOUS 01/31/20 08/13/20 History (For Pump)] Rosuvastatin [Crestor] 10 mg PO DAILY 01/31/20 08/13/20 History Enalapril Maleate [Vasotec] 2.5 mg PO DAILY 08/13/20 08/13/20 History Ferrous Sulfate [Iron (65 MG 325 mg PO Q48H 08/13/20 08/13/20 History Elemental)] Vitamin D3 (Unknown Strength) 1 tab PO DAILY 08/13/20 08/13/20 History Allergies Allergy/AdvReac Type Severity Reaction Status Date / Time No Known Allergies Allergy Verified 08/13/20 19:10 Surgical - Exam Vital Signs Temp Pulse Resp BP Pulse Ox 98.8 F 92 18 144/70 100 08/13/20 16:20 08/13/20 16:20 08/13/20 16:20 08/13/20 16:20 08/13/20 16:20 General appearance: The patient is alert, oriented, in no acute distress. Thin. HET: Head is normocephalic and atraumatic. Neck: Supple. Left carotid bruit noted, no carotid bruit heard on the right. Trachea midline. Heart: S1 S2. Regular rate and rhythm. Lungs: Diminished breath sounds. Abdomen: Soft, nontender, nondistended. Extremities: Normal skin color and turgor. No cyanosis, rash, ulceration, clubbing, or edema. Palpable bilateral radial pulses, right greater than left. Palpable bilateral dorsalis pedis pulses. Neurological: No focal deficits. Strength and sensation are grossly intact. Results CT angiogram of the neck which showed focal fairly severe plaque shortly after bilateral carotid bulbs. Complete occlusion of the proximal right internal carotid artery over a short segment. Significant stenosis proximal left internal carotid artery measured up to 65%. Addendum showed significant stenosis but not complete occlusion over the short segment in the proximal right internal carotid artery, noncalcified plaque at origin of the left subclavian artery causing stenosis under 50%. No significant plaque and remainder of the subclavian arteries bilaterally. Bilateral carotid duplex which showed peak systolic velocity right ICA 583.2, with an ICA/CCA ratio 8.7. Peak systolic velocity left ICA 258.1, ICA/CCA ratio 3.4. Impression states hemodynamic significant stenosis of the proximal internal carotid artery on the right corresponding to greater than 70% diameter reduction. Hemodynamic significant stenosis of the proximal internal carotid artery on the left corresponds to approximately at least 50-69% diameter stenosis. Possible retrograde flow in the vertebral arteries although technologist was a technically difficult exam. Echocardiogram shows left ventricular size normal, mild concentric left ventricular hypertrophy, mild global hypokinesis of PE, left ventricular systolic function mildly impaired EF between 45-50%. Mild to moderate mitral regurgitation, trace tricuspid regurgitation. - Labs 08/18/20 06:43 08/18/20 06:43 Abnormal Lab Results - Last 24 Hours (Table) 08/18/20 08/18/20 Range/Units 06:43 06:43 RBC 2.29 L (4.30-5.90) m/uL Hgb 7.3 L (13.0-17.5) gm/dL Hct 21.6 L (39.0-53.0) % Sodium 136 L (137-145) mmol/L Chloride 112 H (98-107) mmol/L BUN 23 H (9-20) mg/dL Creatinine 1.92 H (0.66-1.25) mg/dL Calcium 8.0 L (8.4-10.2) mg/dL Microbiology - Last 24 Hours (Table) 08/13/20 21:58 Blood Culture - Preliminary Blood No Growth after 96 hours Diabetes panel 08/18/20 Range/Units 06:43 Sodium 136 L (137-145) mmol/L Potassium 4.2 (3.5-5.1) mmol/L Chloride 112 H (98-107) mmol/L Carbon Dioxide 22 (22-30) mmol/L BUN 23 H (9-20) mg/dL Creatinine 1.92 H (0.66-1.25) mg/dL Glucose 81 (74-99) mg/dL Calcium 8.0 L (8.4-10.2) mg/dL Calcium panel 08/18/20 Range/Units 06:43 Calcium 8.0 L (8.4-10.2) mg/dL Pituitary panel 08/18/20 Range/Units 06:43 Sodium 136 L (137-145) mmol/L Potassium 4.2 (3.5-5.1) mmol/L Chloride 112 H (98-107) mmol/L Carbon Dioxide 22 (22-30) mmol/L BUN 23 H (9-20) mg/dL Creatinine 1.92 H (0.66-1.25) mg/dL Glucose 81 (74-99) mg/dL Calcium 8.0 L (8.4-10.2) mg/dL Adrenal panel 08/18/20 Range/Units 06:43 Sodium 136 L (137-145) mmol/L Potassium 4.2 (3.5-5.1) mmol/L Chloride 112 H (98-107) mmol/L Carbon Dioxide 22 (22-30) mmol/L BUN 23 H (9-20) mg/dL Creatinine 1.92 H (0.66-1.25) mg/dL Glucose 81 (74-99) mg/dL Calcium 8.0 L (8.4-10.2) mg/dL Assessment and Plan Assessment: 1. Bilateral internal carotid artery stenosis, right greater than left. Right greater than 70% stenosis near occlusion, left up to 65% per CT angiogram of neck. 2. Triple-vessel coronary artery disease, non-STEMI this admission 3. History of coronary artery disease with prior stent placement in 2004 4. Hypertension 5. Hyperlipidemia 6. Type I diabetes mellitus 7. Peripheral neuropathy 8. Chronic kidney disease 9. Chronic anemia 10. Peripheral vascular disease, hx of left second and third toe amputation 11. Tobacco dependence 12. EtOH use Plan: Patient discussed with Dr. Murray. Continue with current medical management, continue aspirin and statin. Patient is scheduled for carotid angiogram this afternoon with Dr. Rivera. Would consider carotid surgical intervention at time of CABG. Further recommendations to follow. Thank you for this consultation allowing us to take part in the plan of care of your patient during his hospital stay. The above dictated assessment and findings were discussed with Dr. Murray. The impression and plan of care have been directed as dictated.
[2020-08-18] MEDS ORDERED: IV FLUID CONTINUATION 1,000 ML IV ONE (16:06)
[2020-08-18] MEDS ORDERED: fentaNYL (PF) 50 MCG/ML 2 ML AMP IV ONE ×2 (16:18→16:35)
[2020-08-18] MEDS ORDERED: MIDAZOLAM 2 MG/2 ML VIAL IV ONE (16:18)
[2020-08-18] MEDS ORDERED: LIDOCAINE 1% INJ 10MG/ML (20 ML MDV) SQ ONE (16:18)
[2020-08-18] MEDS: MIDAZOLAM 2 MG/2 ML VIAL IV ONE ×2 (16:18→16:29)
[2020-08-18] MEDS ORDERED: IOPAMIDOL-370 100ML BTL INJ ONE ×2 (16:39)
--- NOTE | 2020-08-18 17:02 | P.PCN ---
Date of Procedure: 08/18/20 Description of Procedure: PROCEDURES PERFORMED: Bilateral carotid angiography, left femoral ultrasound guided access INDICATION: Bilateral internal carotid artery disease HISTORY: Patient is a pleasant 59-year-old male with a history of coronary artery disease with prior RCA stent in 2004, hypertension, anemia, hyperlipidemia, type 1 diabetes mellitus, chronic kidney disease stage IV, peripheral neuropathy, tobacco abuse, Dupuytren's contracture, PAD with prior amputation of left toes who had presented with shortness breath, arm and shoulder pain and found to have non-STEMI. Patient was found to have multivessel disease with recommendations for possible bypass. Patient had CABG workup including carotid ultrasound which showed elevated velocities of the right internal carotid artery however CTA showed questionable complete occlusion. Secondary to discrepancy and in order to determine if there was a true occlusion, recommendations were for carotid angiography. CONSENT:I have discussed the risks, benefits and alternative therapies for the above-mentioned procedure and for both sedation/analgesia as well as necessary blood product administration, if indicated, as they pertain to this patient. The patient has indicated understanding and acceptance of the risks and procedures discussed. PROCEDURE: After the risks, benefits and alternatives of the above mentioned procedure explained in detail with the patient, informed consent was obtained. Patient was taken to the catheterization lab and prepped and draped in usual fashion. 1% lidocaine was used to anesthetize the left femoral area. A 5- Tongan sheath was placed in the left femoral artery using modified Seldinger technique and micropuncture access as well as ultrasound guidance. Both right common carotid artery and left common carotid artery were easily engaged with a 5-Tongan Vert catheter and DSA angiography was performed of bilateral carotid arteries. No intracranials were performed secondary to CKD and contrast thresholds. There had been mention of possible retrograde vertebral flow and therefore pullback had been performed bilaterally with no gradient noted. The catheter was removed. The left femoral sheath was pulled and pressure was held with hemostasis achieved. The patient tolerated the procedure well. Patient was transported back to the post catheterization holding area in stable condition. Conscious Sedation: Patient was monitored under the direct supervision of vision of myself for conscious sedation using Versed and fentanyl for a total duration of 27 minutes HEMODYNAMICS: 180/78 SELECTIVE CAROTID ANGIOGRAPHY: Left internal carotid artery: There is a focal 70% stenosis of the left internal carotid artery, just at the distal portion of the carotid bulb. Right internal carotid artery: There is a focal 99% stenosis of the right internal carotid artery at the carotid bulb. Otherwise there is no significant stenosis. FINAL IMPRESSION: 1. 99% right ICA stenosis and 70% left ICA stenosis PLAN: 1. Multidisciplinarian approach to carotid and coronary disease. 2. Monitor Cr closely, IVF.
[2020-08-18] MEDS: Acetaminophen-Codeine 300-30mg TAB PO PRN (21:04)
[2020-08-18] MEDS: Insulin Aspart (For Pump) 100 UNIT/ML VIAL SQ-PUMP SCH (21:07)
[2020-08-19] MEDS ORDERED: INSULIN REGULAR 100 UNIT in SODIUM CHLORIDE 0.9% 100 ML IV ONE (05:00)
[2020-08-19] MEDS ORDERED: NOREPINEPHRINE 4 MG in SODIUM CHLORIDE 0.9% 250 ML IV ONE (05:00)
[2020-08-19] MEDS: PANTOPRAZOLE 40 MG TABLET PO SCH (06:23)
[2020-08-19 07:07] LABS: Glucose,Whole Blood 61 mg/dL (75-99)
[2020-08-19] MEDS ORDERED: INSULIN PUMP BASAL RATES 1 EACH MISC MISCELLANE PRN (07:36)
[2020-08-19] MEDS ORDERED: INSPUCOR MISCELLANE PRN (07:36)
--- NOTE | 2020-08-19 07:46 | IR ---
EXAMINATION TYPE: IR angio aortic arch DATE OF EXAM: 08/18/2020 COMPARISON: NONE HISTORY: Fluoroscopy time. Fluoroscopy was provided to the referring clinician.
[2020-08-19 08:44] LABS: HCT 21.5 % (39.0-53.0); MCHC 31.4 g/dL (31.0-37.0); MCV 98.7 fL (80.0-100.0); Macrocytosis Slight; Mean Platelet Volume 8.4; Platelet Count 206 k/uL (150-450); RBC 2.18 m/uL (4.30-5.90); RDW 15.9 % (11.5-15.5); WBC 6.1 k/uL (3.8-10.6)
[2020-08-19 08:49] LABS: Magnesium 1.2 mg/dL (1.6-2.3); Potassium 3.4 mmol/L (3.5-5.1)
[2020-08-19 09:01] LABS: Calcium 6.2 mg/dL (8.4-10.2)
--- NOTE | 2020-08-19 09:03 | PN ---
PROGRESS NOTE Mr. Knowles is a 59-year-old male with history of diabetes, hypertension, hyperlipidemia, who presented with evidence of acute coronary syndrome, underwent cardiac catheterization, was found to have severe triple-vessel coronary disease, also was found to have carotid disease underwent carotid angiogram yesterday by Dr. Rivera and was found to have critical stenosis involving the right internal carotid artery and 70% in the left internal carotid artery. He is doing well this morning, any chest pain. No dizziness. No palpitation. He continues to be on aspirin 81 mg daily, Lipitor 80 mg daily, lisinopril 10 mg daily, metoprolol tartrate 25 mg twice a day. PHYSICAL EXAMINATION: Blood pressure 111/50 with the heart rate in the 80s. LUNGS: Clear. HEART: Regular rate and rhythm. S1, S2. No S3 with a systolic murmur. No diastolic murmur. ABDOMEN: Soft, nontender. EXTREMITIES: No edema. Left groin no hematoma. LAB DATA: Lab data revealed a hemoglobin of 7.3, BUN and creatinine 23 and 1.92, which is better since admission. IMPRESSION: 1. Severe triple-vessel coronary artery disease, scheduled to undergo coronary artery bypass grafting tomorrow. 2. Obstructive carotid disease. 3. Anemia. 4. Chronic kidney disease. 5. Diabetes. 6. Hypertension. 7. Hyperlipidemia. RECOMMENDATION: Patient will proceed with surgical intervention as scheduled and depending on his progress, further recommendation will be made. MMODL / IJN: [id number] /
[2020-08-19] MEDS ORDERED: MD COMMUNICATION TO PHARMACY 1 EACH MISC PO ONE (09:06)
[2020-08-19 09:07] LABS: HGB 6.7 gm/dL (13.0-17.5)
[2020-08-19] MEDS ORDERED: CALCIUM GLUCONATE 2 GM in SODIUM CHLORIDE 0.9% 100 ML IVPB ONE (09:15)
[2020-08-19] MEDS ORDERED: POTASSIUM CHLORIDE ER 20 MEQ TAB.ER PO STA (09:16)
[2020-08-19 09:20] LABS: Glucose,Whole Blood 242 mg/dL (75-99)
[2020-08-19] MEDS: ATORVASTATIN 80 MG TAB PO SCH (09:26)
[2020-08-19] MEDS: lisinopriL 10 MG TAB PO SCH (09:27)
[2020-08-19] MEDS: METOPROLOL TARTRATE 25 MG TAB PO SCH ×2 (09:27→21:50)
[2020-08-19] MEDS: MAGNESIUM SULFATE-D5W PMX 1 GM in DEXTROSE/WATER 1 100ML.BAG IVPB SCH ×2 (09:30→15:50)
--- NOTE | 2020-08-19 09:31 | P.PN ---
Subjective Progress Note Date: 08/19/20 Principal diagnosis: Triple-vessel coronary artery disease, non-STEMI this admission, bilateral internal carotid artery stenosis, right 99%, left 70% per angiogram. 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 and peripheral neuropathy, current hemoglobin A1c 8.1%, chronic kidney disease stage IV with chronic anemia, cur rent tobacco dependence with FEV1 78% of predicted, chronic right foot wound with MRSA infection in 2014, vascular disease with left second and third toe amputation, Dupuytren's contracture to bilateral hands, occasional EtOH use, occasional marijuana use, family history of premature coronary artery disease with both father and brother having CABG in their early 50s, both parents from brain aneurysm in their 70s Patient is currently sitting up in bed in no acute distress on the cardiac stepdown unit. Denies chest pain or shortness of breath. Remains in normal sinus rhythm and hemodynamically stable. Patient's hemaglobin 6.7, potassium 3.4, calcium 6.2, magnesium 1.2, all of which are being replaced. Carotid angiogram completed yesterday by Dr. Rivera, 99% narrowing in right ICA, 70% narrowing left ICA. Objective - Vital Signs Vital signs: Vital Signs Temp 97.7 F 08/19/20 08:00 Pulse 94 08/19/20 08:00 Resp 18 08/19/20 08:00 BP 178/88 08/19/20 08:00 Pulse Ox 100 08/19/20 08:00 Intake & Output 08/18/20 08/19/20 08/19/20 18:59 06:59 18:59 Intake Total 331 480 Output Total 500 Balance 331 -500 480 Weight 59.2 kg Intake: IV 95 Sodium Chloride 0.9% 1, 20 000 ml @ 100 mls/hr IV . Q10H JACKI Rx#:[id number] Oral 236 480 Output: Urine 500 Other: Voiding Method Urinal # Voids 1 - Constitutional General appearance: Present: cooperative, no acute distress - Respiratory Details: Lungs sounds diminished bilaterally. Respirations even, nonlabored. Currently on room air with oxygen saturation 100%. Able to achieve 3000 mL on his incentive spirometry. Strong cough - Cardiovascular Details: S1, S2 present. Regular rate and rhythm, sinus rhythm on telemetry. Palpable peripheral pulses bilaterally, although decreased left radial pulse. No edema present. No calf pain or tenderness noted. - Gastrointestinal Gastrointestinal Comment(s): Abdomen soft, nontender, nondistended. Active bowel sounds present 4 quadrants. Tolerating diet. Positive bowel movement 08/16/20 - Genitourinary Genitourinary Comment(s): Continues to void - Integumentary Integumentary Comment(s): Skin is warm and dry - Neurologic Neurologic: Present: CNII-XII intact - Musculoskeletal Musculoskeletal: Present: gait normal, strength equal bilaterally - Psychiatric Psychiatric: Present: A&O x's 3, appropriate affect, intact judgment & insight - Allied health notes Allied health notes reviewed: nursing - Labs CBC & Chem 7: 08/19/20 07:47 08/19/20 07:47 Labs: Abnormal Lab Results - Last 24 Hours (Table) 08/18/20 08/19/20 08/19/20 Range/Units 06:43 07:03 07:47 RBC (4.30-5.90) m/uL Hgb (13.0-17.5) gm/dL Hct (39.0-53.0) % RDW (11.5-15.5) % Potassium 3.4 L (3.5-5.1) mmol/L Chloride 118 H (98-107) mmol/L Carbon Dioxide 17 L (22-30) mmol/L Creatinine 1.63 H (0.66-1.25) mg/dL Glucose 157 H (74-99) mg/dL POC Glucose (mg/dL) 61 L (75-99) mg/dL Calcium 6.2 L* (8.4-10.2) mg/dL Magnesium 1.2 L (1.6-2.3) mg/dL Crossmatch See Detail 08/19/20 Range/Units 07:47 RBC 2.18 L (4.30-5.90) m/uL Hgb 6.7 L* (13.0-17.5) gm/dL Hct 21.5 L (39.0-53.0) % RDW 15.9 H (11.5-15.5) % Potassium (3.5-5.1) mmol/L Chloride (98-107) mmol/L Carbon Dioxide (22-30) mmol/L Creatinine (0.66-1.25) mg/dL Glucose (74-99) mg/dL POC Glucose (mg/dL) (75-99) mg/dL Calcium (8.4-10.2) mg/dL Magnesium (1.6-2.3) mg/dL Crossmatch Microbiology - Last 24 Hours (Table) 08/13/20 21:58 Blood Culture - Preliminary Blood No Growth after 120 hours Assessment and Plan Assessment: 1. Triple-vessel coronary artery disease, non-STEMI this admission 2. History of coronary artery disease with stent placement to the right c oronary artery in 2004 3. Hypertension 4. Hyperlipidemia, treated, cholesterol 161, LDL 85 5. Type 1 insulin-dependent diabetes with insulin pump in place and peripheral neuropathy, hemoglobin A1c 8.1% 6. Chronic kidney disease stage IV with chronic anemia 7. Current tobacco dependence, FEV1 78% of predicted 8. Chronic right foot wound with MRSA infection in 2014 9. 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 Dupuytren's contracture to bilateral hands 11. Occasional EtOH use, 1-2 drinks weekly 12. Occasional marijuana use 13. Family history of premature coronary artery disease with both father and brother having CABG in their early 50s 14. Both parents from brain aneurysm in their 70s 15. Bilateral internal carotid artery stenosis, right 99%, left 70% per angiogram Plan: 1. Continue aspirin, statin, beta jaxon therapy. 2. Encourage incentive spirometry use 10 times every hour while awake. Smoking cessation encouraged 3. Increase activity, ambulate as tolerated. 4. Nephrology consulted, appreciate recommendations 5. Will transfuse 1 unit PRBCs, likely will need second unit later today. Calcium, potassium, and magnesium being replaced 6. Our plan is for off pump coronary artery bypass surgery with left internal mammary artery, endoscopic vein harvest with Dr. Chávez tomorrow. NPO after midnight. 7. Patient was educated regarding his increased risk for stroke 8. Medical management of other comorbidities per primary care service Time with Patient: Greater than 30
--- NOTE | 2020-08-19 11:48 | P.PN ---
Subjective Progress Note Date: 08/19/20 HISTORY OF PRESENT ILLNESS 59-year-old male one of Dr. Roach's patient with past medical history of diabe zach on insulin pump, history of hypertension, hyperlipidemia, chronic neuropathy who is also noted to have coronary artery disease post PCI and stent placement back in 2004 was also has been having chronic kidney disease taste for. Patient presented to the emergency department today 08/13/2020 complaining of body ache all over his body along with numbness with worsening shortness of breath with n onspecific chest tightness or pressure and claims his neuropathy has been a lot worse he could not feel his feet and hands. His blood sugar has been slightly bit elevated as well. 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 Rivera surprisingly had multiple vessel disease with 95% blockage in the mid LAD 60-70% blockage of the OM1 100% blockage of the small OM to and 80% mid circumflex with 85% of mid RCA no angioplasty was require the patient will be started on aggressive risk factor modification and management along with consult cardiothoracic for possible CABG. 08/14: Patient evaluated this morning, resting in bed, in no acute distress. Patient is currently undergoing testing for possible coronary artery bypass s urgery with the cardiothoracic team. Patient had carotid ultrasound that showed severe right ICA stenosis and moderate left ICA stenosis. Patient became very argumentative and agitated this morning after discussion regarding his insulin pump. Informed patient that the ICU nurse could not go to his pharmacy to [facility] insulin refills for his insulin pump and family would have to make arrangements to do this. If patient and family are agreeable to this and patient has a working insulin pump with the refill of insulin, patient may use his pump to manage his own sugar. 08/15: Patient remained ICU, had severe stenosis of the right carotid artery might need carotid endarterectomy, in the meanwhile with the use of dye and his kidney function currently is not able to go for CT of the neck will be waiting until Tuesday. Cardiothoracic surgery indicated that he need multi-vessel CABG and the same time might require carotid endarterectomy the same time such an arrangement can be probably done early next week. He seen nephrology kidney function slightly better today. 08/16 patient remains in ICU. Underwent CT of the chest today with CTA neck pending. Patient denies any symptoms of chest pain or shortness of breath. Vitals are stable with temp of 98.5 pulse 85 respiratory rate 13 blood pressure 160/104. Blood work suggesting hemoglobin stable at 7.1, sodium 135 creatinine 2.13 BUN 35 CO2 21 chloride 114 blood sugar 69 this morning. Patient continues to use his own insulin pump . Patient agrees on removing the insulin pump close to the surgery. 08/17 patient examined bedside on the floor. Denies any chest pain or shortness of breath. Denies any dizziness or change in mental status. Vitals suggests a temp of 97.8 pulse 85 respiratory rate 18 blood pressure 151/70. assessed sodium 135 chloride 114 CO2 of 21 creatinine improved to 1.93. BUN improved to 28. CT neck with contrast to be completed today. Heparin drip discontinued. Continue IV fluids post CT with contrast 48 hours to prevent contrast-induced nephropathy 08/18: Patient states he is feeling better today. He has been cooperative. CAT scan angiogram of the neck revealed significant stenosis of the proximal right internal carotid artery. Plan to add consult with vascular surgery for evaluation. He denies having any chest pain or shortness of breath. No lightheadedness or dizziness. Nephrology is soft IV fluids. IV iron has been ordered 08/19: Yesterday afternoon, patient underwent bilateral carotid angiography with Dr. Rivera which found 99% right ICA stenosis and 70% left. Vascular surgery is on consult. Cardiothoracic surgery is planning on CABG for tomorrow. There is no plan for carotid artery intervention during this hospitalization. The patient denies any chest pain or shortness of breath. 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 Repeat blood work reveals hemoglobin of 6.7 potassium 3.4. Calcium 6.2. Magnesium 1.2. Cardiothoracic surgery has addressed electrolyte replacements. One unit of packed RBCs for transfusion ordered. REVIEW OF SYSTEMS CONSTITUTIONAL: Well-developed no acute respiratory distress. No fever. No chills. EYES: No icterus sclerae, no conjunctivitis. EARS, NOSE, MOUTH, THROAT, and FACE: No sore throat, lymphadenopathy, carotid bruits or deformity. RESPIRATORY: No SOB cough or wheezes. CARDIOVASCULAR: No CP, Palpitation, PND, Orthopnea, or angina. GASTROINTESTINAL: No Abd pain, Nausea or vomiting, no Diarrhea or constipation, No GI Bleed, no distention or masses. GENITOURINARY: Negative for Hematuria or UTI, no kidney stones. INTEGUMENT/BREAST: Negative for any muscular injury with mild osteoarthritis.. HEMATOLOGIC/LYMPHATIC: Negative for bleed or purpura. MUSCULOSKELTAL: Negative for Myalgia or arthralgia. NEURLOGICAL: No LOC, Sz or syncope, blurred vision dizziness or abnormality.. BEHAVIORAL/PSYCH: Negative. ENDOCRINE: Negative. PHYSICAL EXAMINATION Gen: This is a 59-year-old male. He is resting in bed and appears to be comfortable. HEENT: Head is atraumatic, normocephalic. Pupils equal, round. Sclerae is anicteric. NECK: Supple. No JVD. No lymphadenopathy. No thyromegaly. LUNGS: Clear to auscultation. No wheezes or rhonchi. No intercostal retractions. HEART: Regular rate and rhythm. No murmur. ABDOMEN: Soft. Bowel sounds are present. No masses. No tenderness. EXTREMITIES: No pedal edema. No calf tenderness. NEUROLOGICAL: Patient is awake, alert and oriented x3. Cranial nerves 2 through 12 are grossly intact. ASSESSMENT AND PLAN 1. Acute non-ST elevated myocardial infarction. Patient is status post heart catheterization revealing severe coronary artery disease. Cardiothoracic surgery evaluation for CABG scheduled for Tuesday. Continue aspirin 81 mg daily, Lipitor 80 mg daily, Lopressor 12.5 mg twice daily. 2. Acute kidney injury with stage IV chronic kidney disease. Nephrology consult appreciated. IV fluids discontinued. 3. Severe carotid artery stenosis, right. Bilateral carotid angiography revealed 99% right internal carotid artery stenosis and 70% left internal carotid artery stenosis.. Vascular surgery consult. 4. Diabetes mellitus type 1, on insulin pump. 5. Hypertension. Continue Lopressor. 6. Hyperlipidemia. Continue atorvastatin 80 mg daily. 7. Chronic advanced diabetic peripheral neuropathy: Patient should be on at least a starter of neuropathy medication like gabapentin or Lyrica something highly suggested to be done as an outpatient. 8. Anemia of chronic kidney disease. Continue Aranesp, ferrous sulfate, Ferrlecit infusion today. 9. Chronic tobacco use and dependence 10. Peripheral vascular occlusive disease. 11. History of coronary artery disease with previous stent placement in the proximal and mid RCA in 2004. Continue as in #1. 12. DVT prophylaxis. 13. GI prophylaxis. Protonix. Discharge plan: Most likely home with homecare. Impression and plan of care have been directed as dictated by the signing physician. Cecille Marcum nurse practitioner acting as scribe for signing physician. Objective - Vital Signs Vital signs: Vital Signs Temp 97.6 F 08/19/20 04:00 Pulse 80 08/19/20 04:00 Resp 18 08/19/20 04:00 BP 111/52 08/19/20 04:00 Pulse Ox 100 08/19/20 04:00 Intake & Output 08/18/20 08/19/20 08/19/20 18:59 06:59 18:59 Intake Total 331 Output Total 500 Balance 331 -500 Weight 59.2 kg Intake: IV 95 Sodium Chloride 0.9% 1, 20 000 ml @ 100 mls/hr IV . Q10H [facility] Rx#:[id number] Oral 236 Output: Urine 500 Other: Voiding Method Urinal # Voids 1 - Labs CBC & Chem 7: 08/19/20 07:47 08/19/20 07:47 Labs: Abnormal Lab Results - Last 24 Hours (Table) 08/18/20 08/19/20 Range/Units 06:43 07:03 POC Glucose (mg/dL) 61 L (75-99) mg/dL Crossmatch See Detail Microbiology - Last 24 Hours (Table) 08/13/20 21:58 Blood Culture - Preliminary Blood No Growth after 120 hours
[2020-08-19] MEDS: INSULIN PUMP MEAL BOLUS 1 UNIT MISC MISCELLANE SCH ×3 (12:30→22:23)
--- NOTE | 2020-08-19 12:43 | P.PN ---
Subjective Patient is seen in follow-up for acute kidney injury on chronic kidney disease. Renal function is improved. No chest pain or shortness of breath. Has been voiding. No active complaints. Scheduled for CABG tomorrow. Vital signs are stable. General: The patient appeared well nourished and normally developed. HEENT: Head exam is unremarkable. Neck is without jugular venous distension. LUNGS: Breath sounds decreased. HEART: Rate and Rhythm are regular. ABDOMEN: Soft, nontender. EXTREMITITES: No edema. Objective - Vital Signs Vital signs: Vital Signs Temp 98.1 F 08/19/20 12:00 Pulse 72 08/19/20 12:00 Resp 16 08/19/20 12:00 BP 129/65 08/19/20 12:00 Pulse Ox 100 08/19/20 08:00 Intake & Output 08/18/20 08/19/20 08/19/20 18:59 06:59 18:59 Intake Total 331 480 Output Total 500 Balance 331 -500 480 Weight 59.2 kg Intake: IV 95 Sodium Chloride 0.9% 1, 20 000 ml @ 100 mls/hr IV . Q10H [facility] Rx#:[id number] Oral 236 480 Blood Product 0 Rc As-1 Unit 0 [id number] Output: Urine 500 Other: Voiding Method Urinal # Voids 1 - Labs CBC & Chem 7: 08/19/20 07:47 08/19/20 07:47 Labs: Abnormal Lab Results - Last 24 Hours (Table) 08/18/20 08/19/20 08/19/20 Range/Units 06:43 07:03 07:47 RBC (4.30-5.90) m/uL Hgb (13.0-17.5) gm/dL Hct (39.0-53.0) % RDW (11.5-15.5) % Potassium 3.4 L (3.5-5.1) mmol/L Chloride 118 H (98-107) mmol/L Carbon Dioxide 17 L (22-30) mmol/L Creatinine 1.63 H (0.66-1.25) mg/dL Glucose 157 H (74-99) mg/dL POC Glucose (mg/dL) 61 L (75-99) mg/dL Calcium 6.2 L* (8.4-10.2) mg/dL Magnesium 1.2 L (1.6-2.3) mg/dL Crossmatch See Detail 08/19/20 08/19/20 Range/Units 07:47 09:18 RBC 2.18 L (4.30-5.90) m/uL Hgb 6.7 L* (13.0-17.5) gm/dL Hct 21.5 L (39.0-53.0) % RDW 15.9 H (11.5-15.5) % Potassium (3.5-5.1) mmol/L Chloride (98-107) mmol/L Carbon Dioxide (22-30) mmol/L Creatinine (0.66-1.25) mg/dL Glucose (74-99) mg/dL POC Glucose (mg/dL) 242 H (75-99) mg/dL Calcium (8.4-10.2) mg/dL Magnesium (1.6-2.3) mg/dL Crossmatch Microbiology - Last 24 Hours (Table) 08/13/20 21:58 Blood Culture - Preliminary Blood No Growth after 120 hours Assessment and Plan Plan: Assessment: 1. Acute kidney injury mostly prerenal secondary to acute MD as well as contrast-induced acute kidney injury. Underwent cardiac catheterization on 08/13/2020. Again received IV contrast on 08/17/2020 for a neck CTA. Renal function improved - creatinine 1.63 today. 2. Chronic kidney disease stage IIIB secondary to diabetic kidney disease. Creatinine 1.81 as of 02/01/2020. 3. Coronary artery disease status post cardiac catheterization on August 13. Has triple-vessel disease. 4. Metabolic acidosis secondary to acute kidney injury and IV fluids. 5. Anemia of chronic kidney disease maintained on Aranesp. Mild iron deficiency noted - status post IV iron August 18. Received a unit of blood toda y. 6. Hypertension with chronic kidney disease. Stable. 7. Hypocalcemia secondary to acute kidney injury. Corrected calcium for albumin is 7.1. 8. Hypomagnesemia from poor intake. Plan: Hep-Lock IV fluids. Encouraged oral intake. Potassium magnesium and calcium replaced. Continue to monitor renal function and urine output. Scheduled for CABG tomorrow. Add oral bicarbonate.
--- NOTE | 2020-08-19 14:01 | P.PN ---
Subjective Progress Note Date: 08/19/20 Principal diagnosis: NSTEMI, severe carotid stenosis Patient was seen and examined with Dr. Silva. He was sitting up in bed. Appeared in no acute distress. The patient denied any current chest pain, shortness of breath, abdominal pain, nausea, or vomiting. He denies any focal deficits. The patient underwent bilateral carotid angiography yesterday which showed 99% right ICA stenosis and 70% left ICA stenosis. Cardiothoracic surgery are planning on off-pump coronary artery bypass surgery with left internal mammary artery endoscopic vein harvest with Dr. Chávez tomorrow. Objective - Vital Signs Vital signs: Vital Signs Temp 98.1 F 08/19/20 12:00 Pulse 72 08/19/20 12:00 Resp 16 08/19/20 12:00 BP 129/65 08/19/20 12:00 Pulse Ox 100 08/19/20 08:00 Intake & Output 08/18/20 08/19/20 08/19/20 18:59 06:59 18:59 Intake Total 331 480 Output Total 500 Balance 331 -500 480 Weight 59.2 kg Intake: IV 95 Sodium Chloride 0.9% 1, 20 000 ml @ 100 mls/hr IV . Q10H [facility] Rx#:[id number] Oral 236 480 Blood Product 0 Rc As-1 Unit 0 [id number] Output: Urine 500 Other: Voiding Method Urinal # Voids 1 - Exam General appearance: The patient is alert, oriented, in no acute distress. HET: Head is normocephalic and atraumatic. Neck: Supple without lymphadenopathy. Trachea midline. Heart: S1 S2. Regular rate and rhythm. Lungs: No crackles or wheezes are heard. Extremities: Normal skin color and turgor. Neurological: No focal deficits. Strength and sensation are grossly intact. - Labs CBC & Chem 7: 08/19/20 07:47 08/19/20 07:47 Labs: Abnormal Lab Results - Last 24 Hours (Table) 08/18/20 08/19/20 08/19/20 Range/Units 06:43 07:03 07:47 RBC (4.30-5.90) m/uL Hgb (13.0-17.5) gm/dL Hct (39.0-53.0) % RDW (11.5-15.5) % Potassium 3.4 L (3.5-5.1) mmol/L Chloride 118 H (98-107) mmol/L Carbon Dioxide 17 L (22-30) mmol/L Creatinine 1.63 H (0.66-1.25) mg/dL Glucose 157 H (74-99) mg/dL POC Glucose (mg/dL) 61 L (75-99) mg/dL Calcium 6.2 L* (8.4-10.2) mg/dL Magnesium 1.2 L (1.6-2.3) mg/dL Crossmatch See Detail 08/19/20 08/19/20 Range/Units 07:47 09:18 RBC 2.18 L (4.30-5.90) m/uL Hgb 6.7 L* (13.0-17.5) gm/dL Hct 21.5 L (39.0-53.0) % RDW 15.9 H (11.5-15.5) % Potassium (3.5-5.1) mmol/L Chloride (98-107) mmol/L Carbon Dioxide (22-30) mmol/L Creatinine (0.66-1.25) mg/dL Glucose (74-99) mg/dL POC Glucose (mg/dL) 242 H (75-99) mg/dL Calcium (8.4-10.2) mg/dL Magnesium (1.6-2.3) mg/dL Crossmatch Microbiology - Last 24 Hours (Table) 08/13/20 21:58 Blood Culture - Preliminary Blood No Growth after 120 hours Assessment and Plan Assessment: 1. Bilateral internal carotid artery stenosis, right greater than left, per carotid angiography right ICA 99% stenosis, left ICA 70% stenosis 2. Triple-vessel coronary artery disease, non-STEMI this admission 3. History of coronary artery disease with prior stent placement in 2004 4. Hypertension 5. Hyperlipidemia 6. Type I diabetes mellitus 7. Peripheral neuropathy 8. Chronic kidney disease 9. Chronic anemia 10. Peripheral vascular disease, hx of left second and third toe amputation 11. Tobacco dependence 12. EtOH use Plan: Dr. Silva had discussion with the patient regarding plans for follow-up and surgical intervention for carotid stenosis. Plan is to proceed with coronary artery bypass surgery tomorrow with cardiothoracic team. Patient agreeable to follow-up with Dr. Silva in 4-6 weeks. Continue medical management. The impression and plan of care has been dictated as directed. I performed a history and examination of this patient, discussed the same with the dictator. I agree with the dictator's note ,documented as a scribe. Any additional findings or plans will be noted.
--- NOTE | 2020-08-19 15:14 | P.PN ---
Subjective Progress Note Date: 08/19/20 Principal diagnosis: Acute non-ST elevation myocardial infarction and severe coronary artery disease Patient was reevaluated today on 08/18/2020, patient is waiting for final decision regarding his surgery. He was found to have significant carotid artery disease, and decision is yet to be made regarding his carotid surgery and CABG. From the pulmonary perspective, patient was seen by us, and we'll clear him for surgery. Patient has no active pulmonary symptoms whatsoever. Labs today showed hemoglobin of 7.3 WBC count is 4.8 electrolytes are normal renal profile is abnormal with a BUN of 23 creatinine is 1.92. Reevaluated today on 08/19/2020, patient is scheduled to have off pump coronary artery bypass surgery tomorrow by Dr. Chávez. Patient was already seen by vascular surgery, and the plan to eventually perform carotid endarterectomy on this patient in the near future but definitely after his CABG. Patient has bilateral internal carotid stenosis with right greater than left. Right ICA is 99%, left ICA is 70% stenosis. Again his carotid surgery will likely be scheduled in 4-6 weeks. Objective - Vital Signs Vital signs: Vital Signs Temp 98.3 F 08/19/20 14:34 Pulse 80 08/19/20 14:34 Resp 16 08/19/20 14:34 BP 141/70 08/19/20 14:34 Pulse Ox 100 08/19/20 14:34 Intake & Output 08/18/20 08/19/20 08/19/20 18:59 06:59 18:59 Intake Total 331 880 Output Total 500 Balance 331 -500 880 Weight 59.2 kg Intake: IV 95 Sodium Chloride 0.9% 1, 20 000 ml @ 100 mls/hr IV . Q10H [facility] Rx#:[id number] Oral 236 580 Blood Product 300 Rc As-1 Unit 300 [id number] Output: Urine 500 Other: Voiding Method Urinal # Voids 1 - Exam Gen: This is a 59-year-old male. He is resting in bed and appears to be comfortable and in no acute distress. HEENT: Head is atraumatic, normocephalic. Pupils equal, round. Sclerae is anicteric. NECK: Supple. No JVD. No lymphadenopathy. No thyromegaly. LUNGS: Clear to auscultation. No wheezes or rhonchi. No intercostal retractions. HEART: Regular rate and rhythm. No murmur. ABDOMEN: Soft. Bowel sounds are present. No masses. No tenderness. EXTREMITIES: No pedal edema. No calf tenderness. NEUROLOGICAL: Patient is awake, alert and oriented x3. Cranial nerves 2 through 12 are grossly intact. - Labs CBC & Chem 7: 08/19/20 07:47 08/19/20 07:47 Labs: Abnormal Lab Results - Last 24 Hours (Table) 08/18/20 08/19/20 08/19/20 Range/Units 06:43 07:03 07:47 RBC (4.30-5.90) m/uL Hgb (13.0-17.5) gm/dL Hct (39.0-53.0) % RDW (11.5-15.5) % Potassium 3.4 L (3.5-5.1) mmol/L Chloride 118 H (98-107) mmol/L Carbon Dioxide 17 L (22-30) mmol/L Creatinine 1.63 H (0.66-1.25) mg/dL Glucose 157 H (74-99) mg/dL POC Glucose (mg/dL) 61 L (75-99) mg/dL Calcium 6.2 L* (8.4-10.2) mg/dL Magnesium 1.2 L (1.6-2.3) mg/dL Crossmatch See Detail 08/19/20 08/19/20 Range/Units 07:47 09:18 RBC 2.18 L (4.30-5.90) m/uL Hgb 6.7 L* (13.0-17.5) gm/dL Hct 21.5 L (39.0-53.0) % RDW 15.9 H (11.5-15.5) % Potassium (3.5-5.1) mmol/L Chloride (98-107) mmol/L Carbon Dioxide (22-30) mmol/L Creatinine (0.66-1.25) mg/dL Glucose (74-99) mg/dL POC Glucose (mg/dL) 242 H (75-99) mg/dL Calcium (8.4-10.2) mg/dL Magnesium (1.6-2.3) mg/dL Crossmatch Microbiology - Last 24 Hours (Table) 08/13/20 21:58 Blood Culture - Preliminary Blood No Growth after 120 hours Assessment and Plan Assessment: Impression: Acute non-ST elevation myocardial infarction Severe coronary artery disease. Severe carotid artery disease/right carotid artery stenosis may require surgery prior to CABG. Acute on chronic kidney disease. Type 1 diabetes. Benign essential hypertension. Chronic anemia of chronic kidney disease. Peripheral vessel occlusive disease. Tobacco dependence syndrome. Recommendation: Patient is scheduled for CABG, off pump tomorrow. Cleared from our perspective for surgery. Will follow postoperatively. Advised to continue incentive spirometry in the meantime Time with Patient: Less than 30
[2020-08-19] MEDS: SODIUM BICARBONATE TAB 650 MG TAB PO SCH ×3 (15:52→21:50)
[2020-08-19] MEDS: FERROUS SULFATE 325 MG TAB PO SCH (21:50)
[2020-08-19] MEDS: Insulin Aspart (For Pump) 100 UNIT/ML VIAL SQ-PUMP SCH (22:24)
[2020-08-20 03:02] LABS: HCT 26.8 % (39.0-53.0); MCH 32.6 pg (25.0-35.0); MCHC 34.4 g/dL (31.0-37.0); MCV 94.6 fL (80.0-100.0); Mean Platelet Volume 7.9; Platelet Count 208 k/uL (150-450); RBC 2.83 m/uL (4.30-5.90); RDW 15.2 % (11.5-15.5); WBC 7.8 k/uL (3.8-10.6)
[2020-08-20 03:13] LABS: HGB 9.2 gm/dL (13.0-17.5)
[2020-08-20 03:14] LABS: Albumin 3.2 g/dL (3.5-5.0); Calcium 8.7 mg/dL (8.4-10.2); Magnesium 2.1 mg/dL (1.6-2.3); Potassium 5.1 mmol/L (3.5-5.1); Total Bilirubin 0.4 mg/dL (0.2-1.3); Total Protein 5.8 g/dL (6.3-8.2)
[2020-08-20 03:20] LABS: Ionized Calcium 5.1 mg/dL (4.5-5.3)
[2020-08-20] MEDS ORDERED: HEPARIN SODIUM 1,000 UN/ML (10ML VL) IV ONE (05:00)
[2020-08-20] MEDS ORDERED: PAPAVERINE 360 MG in SODIUM CHLORIDE 0.9% 90 ML IV ONE ×2 (05:00→09:18)
[2020-08-20] MEDS ORDERED: HEPARIN SODIUM,PORCINE 5,000 UNIT in SODIUM CHLORIDE 0.9% 500 ML 500 ML IV ONE (05:00)
[2020-08-20] MEDS ORDERED: METOPROLOL TARTRATE 12.5 MG TAB PO ONE (05:00)
[2020-08-20] MEDS ORDERED: MAGNESIUM SULFATE SYG 4.06 MEQ/ML SYRINGE IV ONE (05:00)
[2020-08-20] MEDS ORDERED: ALBUMIN HUMAN 5% 500 ML in EMPTY BAG 1 BAG IVPB ONE ×6 (05:00)
[2020-08-20] MEDS ORDERED: ASPIRIN 325 MG TAB PO ONE (05:00)
[2020-08-20] MEDS ORDERED: SODIUM BICARB 8.4% 50 ML SYR (1 MEQ/ML) IV ONE (05:00)
[2020-08-20] MEDS ORDERED: CLEVIDIPINE BUTYRATE 25 MG in EMPTY BAG 1 BAG IV SCH ×2 (05:00→12:50)
[2020-08-20] MEDS ORDERED: PHENYLEPHRINE 10 MG/ML VIAL IV ONE (05:00)
[2020-08-20] MEDS ORDERED: ALBUMIN HUMAN 25% 50 ML in EMPTY BAG 1 BAG IVPB ONE (05:00)
[2020-08-20] MEDS ORDERED: PROTAMINE SULFATE 10 MG/ML 25 ML VIAL IV ONE (05:00)
[2020-08-20] MEDS ORDERED: PHENYLEPHRINE 40 MG in SODIUM CHLORIDE 0.9% 250 ML IV ONE (05:00)
[2020-08-20] MEDS ORDERED: LACTATED RINGERS 1,000 ML IV SCH (05:00)
[2020-08-20] MEDS ORDERED: ceFAZolin 1,000 MG in SODIUM CHLORIDE 0.9% IRRIGATIO 1,000 ML IRRIGATION ONE (05:00)
[2020-08-20] MEDS ORDERED: CHLORHEXIDINE GLUCONATE 15 ML CUP MUCOUS MEM ONE (05:00)
[2020-08-20] MEDS ORDERED: CALCIUM CHLORIDE 100 MG/ML 10 ML SYRINGE IVP ONE (05:00)
[2020-08-20] MEDS ORDERED: NITROGLYCERIN-D5W PMX 25 MG/250 ML BTL IV ONE (05:00)
[2020-08-20] MEDS ORDERED: PROTAMINE SULFATE 250 MG in EMPTY BAG 1 BAG IV ONE (05:00)
[2020-08-20] MEDS ORDERED: MANNITOL 25% 12.5 GM/50 ML VIAL IV ONE ×2 (05:00)
[2020-08-20] MEDS ORDERED: TRANEXAMIC ACID 2,000 MG in SODIUM CHLORIDE 0.9% 80 ML IV ONE (05:00)
[2020-08-20] MEDS ORDERED: CARDIOPLEGIC SOLN (K+ 16 MEQ/L 1,000 ML with SOD BICARB SYR 8.4% (1 MEQ/ML) 20 ML, LIDO... PERFUSION NR ×3 (05:00)
[2020-08-20] MEDS: ATORVASTATIN 80 MG TAB PO SCH (05:17)
[2020-08-20] MEDS ORDERED: IV FLUID CONTINUATION 1,000 ML IV ONE (05:57)
[2020-08-20 06:13] LABS: Glucose,Whole Blood 108 mg/dL (75-99)
[2020-08-20] MEDS ORDERED: PHENYLEPHRINE 10 MG/ML VIAL ONE (07:25)
[2020-08-20] MEDS ORDERED: MIDAZOLAM 2 MG/2 ML VIAL ONE (07:25)
[2020-08-20] MEDS ORDERED: fentaNYL (PF) 50 MCG/ML 50 ML VIAL ONE (07:25)
[2020-08-20] MEDS ORDERED: NITROGLYCERIN-D5W PMX 50 MG/250 ML BOTTLE IV ONE (07:25)
[2020-08-20] MEDS ORDERED: PROPOFOL 10 MG/ML 20 ML VIAL IV ONE (07:25)
[2020-08-20] MEDS ORDERED: ePHEDrine SULFATE/0.9% NACL/PF 50 MG/5 ML SYRINGE IV ONE (07:25)
[2020-08-20] MEDS ORDERED: fentaNYL (PF) 50 MCG/ML 2 ML AMP ONE (07:25)
[2020-08-20] MEDS ORDERED: ceFAZolin 1,000 MG VIAL ONE (07:25)
[2020-08-20] MEDS ORDERED: HEPARIN SODIUM,PORCINE 10,000 UNIT/ML 1 ML VIAL ONE (07:25)
[2020-08-20] MEDS ORDERED: SODIUM BICARB 8.4% 50 ML SYR (1 MEQ/ML) ONE (07:25)
[2020-08-20] MEDS ORDERED: VECURONIUM 10 MG VIAL IV ONE (07:25)
[2020-08-20] MEDS ORDERED: ALBUMIN HUMAN 5% (25gm) 500 ML VIAL IVPB ONE (07:25)
[2020-08-20] MEDS ORDERED: SODIUM CHLORIDE 0.9% 100 ML BAG ONE (07:25)
[2020-08-20] MEDS ORDERED: SODIUM CHLORIDE 0.9% IRRIG 1,000 ML BTL IRRIGATION ONE (07:25)
[2020-08-20] MEDS ORDERED: INSULIN REGULAR 100 UNIT/ML VIAL (IV) ONE (07:25)
[2020-08-20 08:24] LABS: ABG Base Excess -3.4 mmol/L; ABG Glucose Whole Blood 153 mg/dL (75-99); ABG HCO3 21 mmol/L (21-25); ABG Hematocrit 25 % (34.0-46.0); ABG Ionized Calcium 4.8 mg/dL (4.5-5.3); ABG Lactic Acid Whole Blood 0.6 mmol/L (0.5-1.6); ABG PCO2 34 mmHg (35-45); ABG PO2 327 mmHg (83-108); ABG Potassium Whole Blood 4.5 mmol/L (3.4-4.5); ABG Sodium Whole Blood 136 mmol/L (135-146); ABG TCO2 22 mmol/L (19-24)
--- NOTE | 2020-08-20 08:34 | P.PN ---
Subjective Progress Note Date: 08/20/20 HISTORY OF PRESENT ILLNESS 59-year-old male one of Dr. Roach's patient with past medical history of diabe zach on insulin pump, history of hypertension, hyperlipidemia, chronic neuropathy who is also noted to have coronary artery disease post PCI and stent placement back in 2004 was also has been having chronic kidney disease taste for. Patient presented to the emergency department today 08/13/2020 complaining of body ache all over his body along with numbness with worsening shortness of breath with n onspecific chest tightness or pressure and claims his neuropathy has been a lot worse he could not feel his feet and hands. His blood sugar has been slightly bit elevated as well. Patient was giving morphine in [facility] apartment started on hydration surprisingly had significant elevated troponin at 7.4 with lactic acid [place] 4[place]4 [place] [address] with CRP of 5 d-dimer 0.6, EKG showed diffuse ST depression in the anterolateral leads with his current symptom with her kidney function is a lot worse initially try to do conservative management patient kept having severe symptoms [employer] with Dr. Rivera surprisingly had multiple vessel disease with 95% blockage in the mid LAD 60-70% blockage of the OM1 100% blockage of the small OM to and 80% mid circumflex with 85% of mid RCA no angioplasty was require the patient will be started on aggressive risk factor modification and management along with consult cardiothoracic for possible CABG. 08/14: Patient evaluated this morning, resting in bed, in no acute distress. Patient is currently undergoing testing for possible coronary artery bypass s urgery with the cardiothoracic team. Patient had carotid ultrasound that showed severe right ICA stenosis and moderate left ICA stenosis. Patient became very argumentative and agitated this morning after discussion regarding his insulin pump. Informed patient that the ICU nurse could not go to his pharmacy to pick up driver insulin refills for his insulin pump and family would have to make arrangements to do this. If patient and family are agreeable to this and patient has a working insulin pump with the refill of insulin, patient may use his pump to manage his own sugar. 08/15: Patient remained ICU, had severe stenosis of the right carotid artery might need carotid endarterectomy, in the meanwhile with the use of dye and his kidney function currently is not able to go for CT of the neck will be waiting until Tuesday. Cardiothoracic surgery indicated that he need multi-vessel CABG and the same time might require carotid endarterectomy the same time such an arrangement can be probably done early next week. He seen nephrology kidney function slightly better today. 08/16 patient remains in ICU. Underwent CT of the chest today with CTA neck pending. Patient denies any symptoms of chest pain or shortness of breath. Vitals are stable with temp of 98.5 pulse 85 respiratory rate 13 blood pressure 160/104. Blood work suggesting hemoglobin stable at 7.1, sodium 135 creatinine 2.13 BUN 35 CO2 21 chloride 114 blood sugar 69 this morning. Patient continues to use his own insulin pump . Patient agrees on removing the insulin pump close to the surgery. 08/17 patient examined bedside on the floor. Denies any chest pain or shortness of breath. Denies any dizziness or change in mental status. Vitals suggests a temp of 97.8 pulse 85 respiratory rate 18 blood pressure 151/70. assessed sodium 135 chloride 114 CO2 of 21 creatinine improved to 1.93. BUN improved to 28. CT neck with contrast to be completed today. Heparin drip discontinued. Continue IV fluids post CT with contrast 48 hours to prevent contrast-induced nephropathy 08/18: Patient states he is feeling better today. He has been cooperative. CAT scan angiogram of the neck revealed significant stenosis of the proximal right internal carotid artery. Plan to add consult with vascular surgery for evaluation. He denies having any chest pain or shortness of breath. No lightheadedness or dizziness. Nephrology is soft IV fluids. IV iron has been ordered 08/19: Yesterday afternoon, patient underwent bilateral carotid angiography with Dr. Rivera which found 99% right ICA stenosis and 70% left. Vascular surgery is on consult. Cardiothoracic surgery is planning on CABG for tomorrow. There is no plan for carotid artery intervention during this hospitalization. The patient denies any chest pain or shortness of breath. phototypesetting equipment monitor is sinus rhythm. Repeat blood work reveals hemoglobin of 6.7 potassium 3.4. Calcium 6.2. Magnesium 1.2. Cardiothoracic surgery has addressed electrolyte replacements. One unit of packed RBCs for transfusion ordered. 08/20: Patient has gone for CABG. REVIEW OF SYSTEMS CONSTITUTIONAL: Well-developed no acute respiratory distress. No fever. No chills. EYES: No icterus sclerae, no conjunctivitis. EARS, NOSE, MOUTH, THROAT, and FACE: No sore throat, lymphadenopathy, carotid bruits or deformity. RESPIRATORY: No SOB cough or wheezes. CARDIOVASCULAR: No CP, Palpitation, PND, Orthopnea, or angina. GASTROINTESTINAL: No Abd pain, Nausea or vomiting, no Diarrhea or constipation, No GI Bleed, no distention or masses. GENITOURINARY: Negative for Hematuria or UTI, no kidney stones. INTEGUMENT/BREAST: Negative for any muscular injury with mild osteoarthritis.. HEMATOLOGIC/LYMPHATIC: Negative for bleed or purpura. MUSCULOSKELTAL: Negative for Myalgia or arthralgia. NEURLOGICAL: No LOC, Sz or syncope, blurred vision dizziness or abnormality.. BEHAVIORAL/PSYCH: Negative. ENDOCRINE: Negative. PHYSICAL EXAMINATION Gen: This is a 59-year-old male. He is resting in bed and appears to be comfortable. HEENT: Head is atraumatic, normocephalic. Pupils equal, round. Sclerae is anicteric. NECK: Supple. No JVD. No lymphadenopathy. No thyromegaly. LUNGS: Clear to auscultation. No wheezes or rhonchi. No intercostal retractions. HEART: Regular rate and rhythm. No murmur. ABDOMEN: Soft. Bowel sounds are present. No masses. No tenderness. EXTREMITIES: No pedal edema. No calf tenderness. NEUROLOGICAL: Patient is awake, alert and oriented x3. Cranial nerves 2 through 12 are grossly intact. ASSESSMENT AND PLAN 1. Acute non-ST elevated myocardial infarction. Patient is status post heart catheterization revealing severe coronary artery disease. Cardiothoracic surgery evaluation for CABG scheduled for Tuesday. Continue aspirin 81 mg daily, Lipitor 80 mg daily, Lopressor 12.5 mg twice daily. 2. Acute kidney injury with stage IV chronic kidney disease. Nephrology co nsult appreciated. IV fluids discontinued. 3. Severe carotid artery stenosis, right. Bilateral carotid angiography revealed 99% right internal carotid artery stenosis and 70% left internal carotid artery stenosis.. Vascular surgery consult. 4. Diabetes mellitus type 1, on insulin pump. 5. Hypertension. Continue Lopressor. 6. Hyperlipidemia. Continue atorvastatin 80 mg daily. 7. Chronic advanced diabetic peripheral neuropathy: Patient should be on at least a starter of neuropathy medication like gabapentin or Lyrica something highly suggested to be done as an outpatient. 8. Anemia of chronic kidney disease. Continue Aranesp, ferrous sulfate, Ferrlecit infusion today. 9. Chronic tobacco use and dependence 10. Peripheral vascular occlusive disease. 11. History of coronary artery disease with previous stent placement in the proximal and mid RCA in 2004. Continue as in #1. 12. DVT prophylaxis. 13. GI prophylaxis. Protonix. Discharge plan: Most likely home with homecare. Impression and plan of care have been directed as dictated by the signing physician. Cecille Marcum nurse practitioner acting as scribe for signing physician. Objective - Vital Signs Vital signs: Vital Signs Temp 98.9 F 08/20/20 06:05 Pulse 82 08/20/20 06:05 Resp 16 08/20/20 06:05 BP 179/87 08/20/20 06:05 Pulse Ox 100 08/20/20 06:05 Intake & Output 08/19/20 08/20/20 08/20/20 18:59 06:59 18:59 Intake Total 1420 790 Balance 1420 790 Weight 62.5 kg Intake: IV 0 Intake, IV Titration 300 Amount Calcium Gluconate 2 gm In 100 Sodium Chloride 0.9% 100 ml @ 100 mls/hr IVPB ONCE ONE Rx#:[id number] Magnesium Sulfate-D5w Pmx 200 1 gm In Dextrose/Water 1 100ml.bag @ 100 mls/hr IVPB Q1H JACKI Rx#: [id number] Oral 820 480 Blood Product 300 310 Rc As-1 Unit 0 310 [id number] Rc As-1 Unit 300 [id number] Other: Voiding Method Urinal # Voids 2 1 - Labs CBC & Chem 7: 08/20/20 02:40 08/20/20 02:40 Labs: Abnormal Lab Results - Last 24 Hours (Table) 08/18/20 08/19/20 08/19/20 Range/Units 06:43 07:47 07:47 RBC 2.18 L (4.30-5.90) m/uL Hgb 6.7 L* (13.0-17.5) gm/dL Hct 21.5 L (39.0-53.0) % RDW 15.9 H (11.5-15.5) % Sodium (137-145) mmol/L Potassium 3.4 L (3.5-5.1) mmol/L Chloride 118 H (98-107) mmol/L Carbon Dioxide 17 L (22-30) mmol/L BUN (9-20) mg/dL Creatinine 1.63 H (0.66-1.25) mg/dL Glucose 157 H (74-99) mg/dL POC Glucose (mg/dL) (75-99) mg/dL Calcium 6.2 L* (8.4-10.2) mg/dL Magnesium 1.2 L (1.6-2.3) mg/dL Total Protein (6.3-8.2) g/dL Albumin (3.5-5.0) g/dL Crossmatch See Detail 08/19/20 08/20/20 08/20/20 Range/Units 09:18 02:40 02:40 RBC 2.83 L (4.30-5.90) m/uL Hgb 9.2 L D (13.0-17.5) gm/dL Hct 26.8 L (39.0-53.0) % RDW (11.5-15.5) % Sodium 134 L (137-145) mmol/L Potassium (3.5-5.1) mmol/L Chloride 108 H (98-107) mmol/L Carbon Dioxide (22-30) mmol/L BUN 26 H (9-20) mg/dL Creatinine 2.14 H (0.66-1.25) mg/dL Glucose 112 H (74-99) mg/dL POC Glucose (mg/dL) 242 H (75-99) mg/dL Calcium (8.4-10.2) mg/dL Magnesium (1.6-2.3) mg/dL Total Protein 5.8 L (6.3-8.2) g/dL Albumin 3.2 L (3.5-5.0) g/dL Crossmatch 08/20/20 Range/Units 06:09 RBC (4.30-5.90) m/uL Hgb (13.0-17.5) gm/dL Hct (39.0-53.0) % RDW (11.5-15.5) % Sodium (137-145) mmol/L Potassium (3.5-5.1) mmol/L Chloride (98-107) mmol/L Carbon Dioxide (22-30) mmol/L BUN (9-20) mg/dL Creatinine (0.66-1.25) mg/dL Glucose (74-99) mg/dL POC Glucose (mg/dL) 108 H (75-99) mg/dL Calcium (8.4-10.2) mg/dL Magnesium (1.6-2.3) mg/dL Total Protein (6.3-8.2) g/dL Albumin (3.5-5.0) g/dL Crossmatch Microbiology - Last 24 Hours (Table) 08/13/20 21:58 Blood Culture - Final Blood No Growth after 144 hours
--- NOTE | 2020-08-20 09:11 | P.VSCSTY ---
Greater Saphenous Vein Mapping This is bilateral lower extremity greater saphenous vein mapping. Date of service: 08/14/2020 Vein quality and ultrasound appearance: We see no intraluminal thrombus or wall changes. Significant branches bilaterally.. Vein size groin right : 5.3 x 4.2 groin left: 5.2 x 3.6 High thigh right: 4.5 x 3.8 high thigh left: 4.7 x 4.2 Mid thigh right: 4.7 x 3.7 mid thigh left: 3.8 x 3.8 Above-knee right: 4.4 x 3.5 above- knee left: 4.0 x 3.6 Below knee right: 3.7 x 2.9 below-knee left: 3.8 x 3.4 Mid calf right: 2.8 x 2.4 mid calf left: 2.8 x 2.9 Ankle right: 3.0 x 2.6 ankle left: 2.8 x 2.6 Impression: Usable bilateral greater saphenous vein.
[2020-08-20] MEDS ORDERED: SODIUM CHLORIDE 0.9% 500 ML 500 ML with HEPARIN SODIUM,PORCINE 5,000 UNIT IV ONE ×2 (09:17)
[2020-08-20] MEDS ORDERED: ceFAZolin 1,000 MG in SODIUM CHLORIDE 0.9% 1,000 ML IRRIGATION ONE (09:18)
--- NOTE | 2020-08-20 09:43 | P.ARTDOP ---
Arterial Doppler LOWER EXTREMITY ARTERIAL DOPPLER: DATE OF SERVICE: 08/15/2020 Reason for study: Preop CABG. Doppler waveforms: Multiphasic bilaterally throughout. Pulse volume recording: []. Pressure gradients: None. Ankle-brachial indices: Greater than 1 bilaterally. Toe brachial indices: 0.81 on the right, 0.76 on the left Impression: Normal study.
--- NOTE | 2020-08-20 09:57 | P.ARTDOP ---
Arterial Doppler Bilateral radial artery studies: Reason for study: Preop CABG Date of study: 08/14/2020 Doppler assessment shows a 26 mm right to left gradient at the radial artery and a 10 mm gradient left to right at the ulnar. With radial artery compression, we see no signal at the digital level. Sizes on the right radial are adequate as is the left where visualized distal and mid. There is an IV site proximally. Impression. There does not appear to be adequate collateral flow from the ulnar to make radial artery use appropriate. Clinical correlation recommended.
[2020-08-20 10:03] LABS: ABG Glucose Whole Blood 230 mg/dL (75-99); ABG HCO3 22 mmol/L (21-25); ABG Ionized Calcium 4.8 mg/dL (4.5-5.3); ABG Lactic Acid Whole Blood 0.4 mmol/L (0.5-1.6); ABG Oxygen Saturation 99.8 % (94-97); ABG PCO2 51 mmHg (35-45); ABG PH 7.25 (7.35-7.45); ABG PO2 276 mmHg (83-108); ABG Potassium Whole Blood 4.8 mmol/L (3.4-4.5); ABG Sodium Whole Blood 138 mmol/L (135-146); ABG TCO2 24 mmol/L (19-24)
[2020-08-20 10:12] LABS: ABG Base Excess -1.1 mmol/L; ABG Glucose Whole Blood 227 mg/dL (75-99); ABG HCO3 25 mmol/L (21-25); ABG Ionized Calcium 4.6 mg/dL (4.5-5.3); ABG Lactic Acid Whole Blood 0.5 mmol/L (0.5-1.6); ABG Oxygen Saturation 99.8 % (94-97); ABG PCO2 48 mmHg (35-45); ABG PH 7.33 (7.35-7.45); ABG PO2 249 mmHg (83-108); ABG Potassium Whole Blood 4.5 mmol/L (3.4-4.5); ABG Sodium Whole Blood 140 mmol/L (135-146); ABG TCO2 26 mmol/L (19-24)
[2020-08-20 10:37] LABS: ABG Base Excess -1.5 mmol/L; ABG Glucose Whole Blood 198 mg/dL (75-99); ABG HCO3 24 mmol/L (21-25); ABG Ionized Calcium 4.6 mg/dL (4.5-5.3); ABG Lactic Acid Whole Blood 0.7 mmol/L (0.5-1.6); ABG Oxygen Saturation 99.9 % (94-97); ABG PCO2 40 mmHg (35-45); ABG PH 7.38 (7.35-7.45); ABG PO2 228 mmHg (83-108); ABG Potassium Whole Blood 4.3 mmol/L (3.4-4.5); ABG Sodium Whole Blood 139 mmol/L (135-146); ABG TCO2 25 mmol/L (19-24)
[2020-08-20 11:04] LABS: ABG Base Excess -2.4 mmol/L; ABG Glucose Whole Blood 172 mg/dL (75-99); ABG HCO3 23 mmol/L (21-25); ABG Ionized Calcium 4.6 mg/dL (4.5-5.3); ABG Lactic Acid Whole Blood 1.2 mmol/L (0.5-1.6); ABG Oxygen Saturation 99.8 % (94-97); ABG PCO2 41 mmHg (35-45); ABG PH 7.36 (7.35-7.45); ABG PO2 234 mmHg (83-108); ABG Potassium Whole Blood 4.2 mmol/L (3.4-4.5); ABG Sodium Whole Blood 139 mmol/L (135-146); ABG TCO2 24 mmol/L (19-24)
[2020-08-20 11:33] LABS: ABG Base Excess -2.9 mmol/L; ABG Glucose Whole Blood 138 mg/dL (75-99); ABG HCO3 22 mmol/L (21-25); ABG Ionized Calcium 4.5 mg/dL (4.5-5.3); ABG Lactic Acid Whole Blood 1.7 mmol/L (0.5-1.6); ABG PCO2 40 mmHg (35-45); ABG PH 7.36 (7.35-7.45); ABG PO2 242 mmHg (83-108); ABG Sodium Whole Blood 140 mmol/L (135-146); ABG TCO2 24 mmol/L (19-24)
[2020-08-20 12:00] LABS: ABG Hematocrit 23 % (34.0-46.0)
[2020-08-20 12:01] LABS: ABG Hematocrit 23 % (34.0-46.0)
[2020-08-20 12:02] LABS: ABG Hematocrit 22 % (34.0-46.0)
[2020-08-20 12:03] LABS: ABG Hematocrit 21 % (34.0-46.0)
[2020-08-20 12:04] LABS: ABG Hematocrit 22 % (34.0-46.0)
--- NOTE | 2020-08-20 12:30 | P.OP ---
Date of Procedure: 08/20/20 Preoperative Diagnosis: Coronary artery disease, subendocardial infarction, chronic renal insufficiency, cerebrovascular disease, COPD with active smoking, peripheral vascular disease. Postoperative Diagnosis: Same Procedure(s) Performed: Off-pump CABG 3 with REID to LAD, saphenous vein grafts to first obtuse marginal and right coronary arteries, exclusion of left atrial appendage with 35 mm AtriCure clip. Implants: 35 mm AtriCure clip Anesthesia: ARCELIA Surgeon: Juan Antonio Chávez Skiff Operator #1: Huy Morrison Skiff Operator #2: Nataly Marinelli Estimated Blood Loss (ml): 200 IV fluids (ml): 2,000 Urine output (ml): 500 Pathology: none sent Condition: stable Disposition: ICU Indications for Procedure: 59-year-old male with multiple medical diseases including insulin-dependent diabetes, chronic renal insufficiency with baseline creatinine 3-1/2, COPD with active's 2 pack a day smoking, peripheral vascular disease with significant bilateral carotid stenoses presented with subendocardial infarction. Cardiac catheterization demonstrated severe three-vessel coronary artery disease and CABG was requested. After appropriate workup, the patient was brought for coronary bypass surgery. Operative Findings: Was diffuse coronary artery disease with heavy calcification of the LAD for much of its length. The LAD was ultimately grafted in the distal third of the anterior wall. It was a dominant vessel which wrapped well around the apex of therefore this was in the midportion of the vessel. Right coronary artery was soft but disease vessel just prior to its bifurcation. The distal branches were both fairly small. It was grafted just prior to its bifurcation. Circumflex coronary artery went to obtuse marginal coronary arteries. The first was a soft graftable vessel. The second was a diffusely diseased and calcified vessel which was only graftable very close to the end of the vessel where it was only a 1 mm vessel. It was opted not to bypass the second obtuse marginal. Patient made good urine throughout the case. Blood pressure remained stable throughout the case. Conduits were good. Ascending aorta was soft without calcific disease. Description of Procedure: The patient was brought to the operating room, laid supine on the operating table., Anesthetized and intubated. Meridian-Sybil catheter and radial artery line and placed in the preop holding area. BENI probe was placed. The anterior torso and lower extremities were sterilely prepped and draped. Her saphenous vein was harvested from mid calf to the groin through a small incision near the knee using endovascular vein harvest technique on the left-hand side. It was a good conduit. Simultaneous sternotomy was performed, left hemisternum retracted upwards of the left internal mammary artery harvested on a vascularized pedicle left intact on its origin from the subclavian and divided distally. It was an excellent conduit. Left pleural space was drained with a 32-Indonesian chest tube. Standard sternal retractor was placed the pericardium was opened in the midline and the heart exposed with pericardial sutures. Once the vein was prepared the patient was systemically heparinized and the OLGA was tunneled into the pericardium. The LAD was opened fairly distally on the anterior wall in the midportion of the vessel at a soft spot. It was a 1.75 mm vessel and blood flow was controlled with a 1.5 mm flow through. End of the REID was anastomosed to the LAD with running 8-0 Prolene suture. On completion anastomosis the flow through was removed effectively probing the proximal distal portion of the anastomosis. Suture was tied with good result and hemostasis and the inflow open. IV pedicle was tacked surrounding epicardium with 6-0 silk sutures. Next the saphenous vein was cut to appropriate length to reach the first obtuse marginal and the right distal right coronary artery. Each of these was loaded on passport anastomotic connector and connected to the ascending aorta. The obtuse marginal graft was connected in the mid ascending aorta and the left of midline in the right coronary graft was placed on the proximal ascending aorta in the midline. The distal right coronary artery was first exposed and stabilized. REID was wrapped around the AV groove to this area. The right coronary artery was opened and blood flow control with a 1.5 mm flow through. A 1.75 mm lumen. End-to-side anastomosis between the saphenous vein and the right coronary artery was performed with running 7-0 Prolene suture. On completion anastomosis the flow through was removed effectively probing the proximal distal portion of the anastomosis. Suture was tied and inflow open. Graft lay well with good length and good hemostasis. Next the lateral wall the heart was exposed and the obtuse marginal coronary artery was opened fairly proximally. Once the was controlled with a 1.5 mm flow through. It was also a 1.75 mm lumen. Anastomosis of the second piece of saphenous vein to the first obtuse marginal was performed with running 7-0 Prolene suture. On completion anastomosis flow through was removed effectively probing the proximal distal portion of the anastomosis. Suture was tied with good result and hemostasis. Heart was lowered into anatomic position the graft lay well with good length. Next the 35mm AtriCure clip was applied to the base of the left atrial appendage. Heparin was reversed with protamine and good hemostasis obtained throughout. Right pleural space was drained with a 32-Indonesian chest tube in the mediastinum with a 36-Indonesian chest tube. Chest was irrigated with antibiotic solution. After assuring good hemostasis the sternum was closed with 8 sternal wires. This was reinforced with a single V plate in the upper sternal body with 4 18 mm screws. Fascia was closed with 0 Ethibond. Cutaneous and subcuticular layers were closed with layers of Vicryl suture at both the chest and leg. Skin glue and dry sterile dressings were applied the patient was transferred to ICU in stable condition.
[2020-08-20] MEDS: NITROGLYCERIN-D5W PMX 50 MG in DEXTROSE/WATER 1 250ML.BAG IV SCH ×2 (12:35→13:27)
[2020-08-20 12:48] LABS: Glucose,Whole Blood 92 mg/dL (75-99)
[2020-08-20] MEDS ORDERED: DEXMEDETOMIDINE/0.9% NACL(PMX) 400 MCG in EMPTY BAG 1 BAG IV SCH (12:50)
[2020-08-20] MEDS ORDERED: Potassium Replacement Protocol 1 EACH MISC MISCELLANE PRN (12:50)
[2020-08-20] MEDS ORDERED: BENZOCAINE/MENTHOL LOZENG 1 EACH LOZENGE MUCOUS MEM PRN (12:50)
[2020-08-20] MEDS ORDERED: CALCIUM GLUCONATE 2 GM in SODIUM CHLORIDE 0.9% 100 ML IVPB PRN (12:50)
[2020-08-20] MEDS ORDERED: Magnesium Replacement Protocol 1 EACH MISC MISCELLANE PRN ×2 (12:50→16:53)
[2020-08-20] MEDS ORDERED: AMIODARONE 450 MG in DEXTROSE 5% IN WATER 250 ML IV PRN ×2 (12:50)
[2020-08-20] MEDS ORDERED: DEXTROSE 5% IN WATER 100 ML with AMIODARONE 150 MG IV PRN (12:50)
[2020-08-20] MEDS ORDERED: IPRATROPIUM-ALBUTEROL 3 ML NEB INHALATION PRN (12:50)
[2020-08-20] MEDS ORDERED: ONDANSETRON 4 MG/2 ML VIAL IVP PRN (12:50)
[2020-08-20] MEDS ORDERED: INSULIN REGULAR 100 UNIT in SODIUM CHLORIDE 0.9% 100 ML IV SCH (12:50)
[2020-08-20] MEDS ORDERED: hydrALAZINE HCL 20 MG/ML 1 ML VIAL IVP PRN (12:50)
[2020-08-20] MEDS ORDERED: Phosphorus Replacement Protoco 1 EACH MISC MISCELLANE PRN (12:50)
[2020-08-20] MEDS ORDERED: DOPamine DRIP 800 MG in DEXTROSE/WATER 1 250ML.BAG IV SCH (12:50)
[2020-08-20] MEDS ORDERED: NITROGLYCERIN-D5W PMX 50 MG in DEXTROSE/WATER 1 250ML.BAG IV SCH (12:50)
[2020-08-20] MEDS ORDERED: ALBUMIN HUMAN 5% 250 ML in EMPTY BAG 1 BAG IVPB PRN (12:50)
[2020-08-20] MEDS ORDERED: AMIODARONE 360 MG in DEXTROSE 5% IN WATER 200 ML IV PRN ×2 (12:50)
[2020-08-20] MEDS ORDERED: METOCLOPRAMIDE 5 MG/ML 2 ML VIAL IVP PRN (12:50)
[2020-08-20] MEDS ORDERED: ALBUMIN HUMAN 5% 250 ML IVPB ONE (12:57)
[2020-08-20 13:03] LABS: Basophils % (A) 0 %; Eosinophils # (A) 0.2 k/uL (0-0.7); Eosinophils % (A) 3 %; HCT 21.5 % (39.0-53.0); Lymphocytes # (A) 1.2 k/uL (1.0-4.8); Lymphocytes % (A) 14 %; MCH 33.1 pg (25.0-35.0); MCHC 34.9 g/dL (31.0-37.0); MCV 94.8 fL (80.0-100.0); Mean Platelet Volume 7.8; Monocytes # (A) 0.5 k/uL (0-1.0); Monocytes % (A) 5 %; Neutrophils # (A) 6.4 k/uL (1.3-7.7); Neutrophils % (A) 77 %; Platelet Count 163 k/uL (150-450); RBC 2.27 m/uL (4.30-5.90); RDW 15.3 % (11.5-15.5); WBC 8.4 k/uL (3.8-10.6)
--- NOTE | 2020-08-20 13:04 | XR ---
EXAMINATION TYPE: XR chest 1V portable DATE OF EXAM: 08/20/2020 COMPARISON: 08/13/2020 HISTORY: Post cardiac surgery TECHNIQUE: Single frontal view of the chest is obtained. FINDINGS: ET tube is seen with the tip approximately 2.2 cm above the marley. NG tube is at the leve l of the GE junction and could be advanced. Gilbert-Sybil catheter seen with the tip overlying the proxim al pulmonary outflow tract. Postoperative change seen with bilateral areas of consolidation likely in the basis of postoperative atelectasis. There is a mediastinal drain and bilateral chest tubes. Pleural reflection along the lef t apex suggest approximately 10% left apical pneumothorax. IMPRESSION: 1. Postsurgical changes with suspected left apical small pneumothorax with chest tube in position. 2. Consider advancing the NG tube with the tip near the GE junction. 3. Bilateral infiltrate likely in the basis of postoperative atelectasis.
[2020-08-20 13:06] LABS: HGB 7.5 gm/dL (13.0-17.5)
--- NOTE | 2020-08-20 13:08 | P.PN ---
Subjective Patient is seen in follow-up for acute kidney injury on chronic kidney disease. Patient just returned from CABG. Creatinine 2.1 for this morning. Currently on dopamine. Also on LR at 50 mL an hour. Chest tubes in place. Intubated. Vital signs are stable. General: Intubated. HEENT: Head exam is unremarkable. LUNGS: Breath sounds decreased. Chest tubes noted. HEART: Rate and Rhythm are regular. ABDOMEN: Soft, nontender. EXTREMITITES: No edema. Objective - Vital Signs Vital signs: Vital Signs Temp 35.5 F L 08/20/20 13:00 Pulse 87 08/20/20 13:00 Resp 11 L 08/20/20 13:00 BP 179/87 08/20/20 06:05 Pulse Ox 100 08/20/20 13:00 Intake & Output 08/19/20 08/20/20 08/20/20 18:59 06:59 18:59 Intake Total 1420 790 56 Output Total 960 Balance 1420 790 -904 Weight 62.5 kg Intake: IV 0 56 Intake, IV Titration 300 Amount Calcium Gluconate 2 gm In 100 Sodium Chloride 0.9% 100 ml @ 100 mls/hr IVPB ONCE ONE Rx#:[id number] Magnesium Sulfate-D5w Pmx 200 1 gm In Dextrose/Water 1 100ml.bag @ 100 mls/hr IVPB Q1H [facility] Rx#: [id number] Oral 820 480 Blood Product 300 310 Rc As-1 Unit 0 310 [id number] Rc As-1 Unit 300 [id number] Output: Urine 460 Estimated Blood Loss 500 Other: Voiding Method Urinal # Voids 2 1 ABP, PAP, CO, CI - Last Documented Arterial Blood Pressure 102/44 Pulmonary Artery Pressure 22/9 Cardiac Output 6.3 Cardiac Index 3.6 - Labs CBC & Chem 7: 08/20/20 02:40 08/20/20 02:40 Labs: Abnormal Lab Results - Last 24 Hours (Table) 08/18/20 08/20/20 08/20/20 Range/Units 06:43 02:40 02:40 RBC 2.83 L (4.30-5.90) m/uL Hgb 9.2 L D (13.0-17.5) gm/dL Hct 26.8 L (39.0-53.0) % ABG pH (7.35-7.45) ABG pCO2 (35-45) mmHg ABG pO2 (83-108) mmHg ABG Total CO2 (19-24) mmol/L ABG O2 Saturation (94-97) % ABG Hematocrit (34.0-46.0) % ABG Potassium (3.4-4.5) mmol/L ABG Glucose (75-99) mg/dL ABG Lactic Acid (0.5-1.6) mmol/L Hemoglobin (13.0-17.5) gm/dL Sodium 134 L (137-145) mmol/L Chloride 108 H (98-107) mmol/L BUN 26 H (9-20) mg/dL Creatinine 2.14 H (0.66-1.25) mg/dL Glucose 112 H (74-99) mg/dL POC Glucose (mg/dL) (75-99) mg/dL Total Protein 5.8 L (6.3-8.2) g/dL Albumin 3.2 L (3.5-5.0) g/dL Arterial Blood Potassium (3.4-4.5) mmol/L Arterial Blood Glucose (75-99) mg/dL Crossmatch See Detail 08/20/20 08/20/20 08/20/20 Range/Units 06:09 08:25 10:03 RBC (4.30-5.90) m/uL Hgb (13.0-17.5) gm/dL Hct (39.0-53.0) % ABG pH 7.25 L (7.35-7.45) ABG pCO2 34 L 51 H (35-45) mmHg ABG pO2 327 H 276 H (83-108) mmHg ABG Total CO2 (19-24) mmol/L ABG O2 Saturation 100.0 H 99.8 H (94-97) % ABG Hematocrit 25 L 23 L (34.0-46.0) % ABG Potassium 4.8 H (3.4-4.5) mmol/L ABG Glucose 153 H 230 H (75-99) mg/dL ABG Lactic Acid 0.4 L (0.5-1.6) mmol/L Hemoglobin 8.1 L 7.6 L (13.0-17.5) gm/dL Sodium (137-145) mmol/L Chloride (98-107) mmol/L BUN (9-20) mg/dL Creatinine (0.66-1.25) mg/dL Glucose (74-99) mg/dL POC Glucose (mg/dL) 108 H (75-99) mg/dL Total Protein (6.3-8.2) g/dL Albumin (3.5-5.0) g/dL Arterial Blood Potassium 4.8 H (3.4-4.5) mmol/L Arterial Blood Glucose 153 H 230 H (75-99) mg/dL Crossmatch 08/20/20 08/20/20 08/20/20 Range/Units 10:13 10:37 11:04 RBC (4.30-5.90) m/uL Hgb (13.0-17.5) gm/dL Hct (39.0-53.0) % ABG pH 7.33 L (7.35-7.45) ABG pCO2 48 H (35-45) mmHg ABG pO2 249 H 228 H 234 H (83-108) mmHg ABG Total CO2 26 H 25 H (19-24) mmol/L ABG O2 Saturation 99.8 H 99.9 H 99.8 H (94-97) % ABG Hematocrit 23 L 22 L 21 L (34.0-46.0) % ABG Potassium (3.4-4.5) mmol/L ABG Glucose 227 H 198 H 172 H (75-99) mg/dL ABG Lactic Acid (0.5-1.6) mmol/L Hemoglobin 7.5 L 7.2 L 6.9 L* (13.0-17.5) gm/dL Sodium (137-145) mmol/L Chloride (98-107) mmol/L BUN (9-20) mg/dL Creatinine (0.66-1.25) mg/dL Glucose (74-99) mg/dL POC Glucose (mg/dL) (75-99) mg/dL Total Protein (6.3-8.2) g/dL Albumin (3.5-5.0) g/dL Arterial Blood Potassium (3.4-4.5) mmol/L Arterial Blood Glucose 227 H 198 H 172 H (75-99) mg/dL Crossmatch 08/20/20 Range/Units 11:34 RBC (4.30-5.90) m/uL Hgb (13.0-17.5) gm/dL Hct (39.0-53.0) % ABG pH (7.35-7.45) ABG pCO2 (35-45) mmHg ABG pO2 242 H (83-108) mmHg ABG Total CO2 (19-24) mmol/L ABG O2 Saturation 100.0 H (94-97) % ABG Hematocrit 22 L (34.0-46.0) % ABG Potassium (3.4-4.5) mmol/L ABG Glucose 138 H (75-99) mg/dL ABG Lactic Acid 1.7 H (0.5-1.6) mmol/L Hemoglobin 7.2 L (13.0-17.5) gm/dL Sodium (137-145) mmol/L Chloride (98-107) mmol/L BUN (9-20) mg/dL Creatinine (0.66-1.25) mg/dL Glucose (74-99) mg/dL POC Glucose (mg/dL) (75-99) mg/dL Total Protein (6.3-8.2) g/dL Albumin (3.5-5.0) g/dL Arterial Blood Potassium (3.4-4.5) mmol/L Arterial Blood Glucose 138 H (75-99) mg/dL Crossmatch Microbiology - Last 24 Hours (Table) 08/13/20 21:58 Blood Culture - Final Blood No Growth after 144 hours Assessment and Plan Plan: Assessment: 1. Acute kidney injury mostly prerenal secondary to acute ID, anemia as well as contrast-induced acute kidney injury. Underwent cardiac catheterization on 08/13/2020. Again received IV contrast on 08/17/2020 for a neck CTA. Creatinine 2.14 this morning. 2. Chronic kidney disease stage IIIB secondary to diabetic kidney disease. Creatinine 1.81 as of 02/01/2020. 3. Coronary artery disease status post cardiac catheterization on August 13. Has triple-vessel disease. Status post CABG this morning. 4. Metabolic acidosis secondary to acute kidney injury and IV fluids. Improved. Maintained on oral bicarbonate. 5. Anemia of chronic kidney disease maintained on Aranesp. Mild iron deficiency noted - status post IV iron August 18. Received a unit of blood Amor de [place] garza 5. 6. Hypertension with chronic kidney disease. Currently on dopamine. 7. Hypocalcemia secondary to acute kidney injury. Corrected calcium for albumin is 7.1. status post replacement. Better. 8. Hypomagnesemia from poor intake. status post replacement. Plan: Maintain LR. Wean dopamine. Encouraged oral intake. Continue to monitor renal function and urine output. Avoid nephrotoxins.
[2020-08-20 13:24] LABS: Ionized Calcium 4.9 mg/dL (4.5-5.3); Partial Thromboplastin Time 27.9 sec (22.0-30.0); Prothrombin Time 10.8 sec (9.0-12.0)
[2020-08-20] MEDS: SODIUM BICARBONATE TAB 650 MG TAB PO SCH ×3 (13:24→21:21)
[2020-08-20] MEDS: LACTATED RINGERS 1,000 ML IV SCH (13:26)
[2020-08-20 13:34] LABS: Albumin 2.7 g/dL (3.5-5.0); Calcium 7.6 mg/dL (8.4-10.2); Magnesium 1.8 mg/dL (1.6-2.3); Potassium 4.2 mmol/L (3.5-5.1); Total Bilirubin 0.3 mg/dL (0.2-1.3); Total Protein 4.8 g/dL (6.3-8.2)
[2020-08-20] MEDS ORDERED: DEXTROSE 50% SYRINGE 50 ML IVP ONE (13:47)
--- NOTE | 2020-08-20 13:47 | PN ---
PROGRESS NOTE Mr. Knowles is a 59-year-old male who presented with evidence of non STEMI. He has severe coronary artery disease, underwent coronary artery bypass grafting today by Dr. Chávez. He received REID to the LAD, saphenous vein graft to the first obtuse marginal branch and to the right coronary artery with exclusion of the left atrial appendage. He is intubated and sedated. Hemodynamically, he is stable. He is on low-dose IV dopamine. He is in sinus mechanism. PHYSICAL EXAMINATION: Blood pressure 102/40 with the heart rate in the 80s. LUNGS: Clear anteriorly. HEART: Regular rate and rhythm. S1, S2. No S3 with a rub. No gallop. ABDOMEN: Soft. Positive bowel sounds. No organomegaly. EXTREMITIES: Jason wrapping in place. IMPRESSION: 1. Status post coronary artery bypass grafting, stable. 2. Severe carotid disease, asymptomatic. 3. History of anemia. 4. Long-standing history of diabetes. 5. Hypertension. 6. Hyperlipidemia. RECOMMENDATION: From the cardiac standpoint, will continue on the routine postoperative care hopefully being able to wean and extubate him soon and re-initiate his statin and depending on his blood pressure the beta jaxon. Down the road, the patient will need to be evaluated to undergo revascularization of his carotid artery. MMODL / IJN: [id number] /
[2020-08-20 13:48] LABS: Glucose,Whole Blood 63 mg/dL (75-99)
[2020-08-20 13:56] LABS: ABG Base Excess -2.5 mmol/L; ABG HCO3 24 mmol/L (21-25); ABG PCO2 47 mmHg (35-45); ABG PH 7.31 (7.35-7.45); ABG PO2 >400 mmHg (83-108); ABG TCO2 25 mmol/L (19-24); Allen Test Performed? Yes
[2020-08-20 14:19] LABS: Glucose,Whole Blood 110 mg/dL (75-99)
--- NOTE | 2020-08-20 14:48 | P.PN ---
Subjective Progress Note Date: 08/20/20 Principal diagnosis: Acute non-ST elevation myocardial infarction and severe coronary artery disease Patient was reevaluated today on 08/18/2020, patient is waiting for final decision regarding his surgery. He was found to have significant carotid artery disease, and decision is yet to be made regarding his carotid surgery and CABG. From the pulmonary perspective, patient was seen by us, and we'll clear him for surgery. Patient has no active pulmonary symptoms whatsoever. Labs today showed hemoglobin of 7.3 WBC count is 4.8 electrolytes are normal renal profile is abnormal with a BUN of 23 creatinine is 1.92. Reevaluated today on 08/19/2020, patient is scheduled to have off pump coronary artery bypass surgery tomorrow by Dr. Chávez. Patient was already seen by vascular surgery, and the plan to eventually perform carotid endarterectomy on this patient in the near future but definitely after his CABG. Patient has bilateral internal carotid stenosis with right greater than left. Right ICA is 99%, left ICA is 70% stenosis. Again his carotid surgery will likely be scheduled in 4-6 weeks. Patient was reevaluated today on 08/20/2020, patient just came back to the ICU, he is off pump CABG 3 with REID to LAD, saphenous vein graft to first obtuse marginal and RCA arteries exclusion of left atrial appendage with 35 mm articure clip. Patient is in the ICU, he is now on mechanical ventilation, his ventilator settings are assist control rate of 10 increased at 12, tidal volume is 500, FiO2 is 40%, and PEEP is 5.ABG showed a pO2 of over 400 pCO2 of 47 pH of 7.31. Hence his rate was increased up to 12. Postoperative chest x-ray showed postsurgical changes with small tiny left apical pneumothorax but there is a chest tube in place, and by basilar atelectasis, expected postoperatively. Objective - Vital Signs Vital signs: Vital Signs Temp 35.5 F L 08/20/20 13:00 Pulse 87 08/20/20 14:00 Resp 15 08/20/20 14:00 BP 85/47 08/20/20 14:00 Pulse Ox 100 08/20/20 14:00 Intake & Output 08/19/20 08/20/20 08/20/20 18:59 06:59 18:59 Intake Total 1420 790 690.362 Output Total 1150 Balance 1420 790 -459.638 Weight 62.5 kg Intake: IV 0 659.0 Albumin Human 5% 250 ml 500 In Empty Bag 1 bag @ 250 mls/hr IVPB Q1HR PRN Rx#: [id number] Lactated Ringers 1,000 ml 100 @ 50 mls/hr IV .Q20H [facility] Rx#:[id number] Nitroglycerin-D5w Pmx 50 3.0 mg In Dextrose/Water 1 250ml.bag @ 5 MCG/MIN 1.5 mls/hr IV .Q24H [facility] Rx#: [id number] Intake, IV Titration 300 31.362 Amount Calcium Gluconate 2 gm In 100 Sodium Chloride 0.9% 100 ml @ 100 mls/hr IVPB ONCE ONE Rx#:[id number] Insulin Regular 100 unit 7.07 In Sodium Chloride 0.9% 100 ml @ Per Protocol IV .Q0M [facility] Rx#:[id number] Insulin Regular 100 unit 0.417 In Sodium Chloride 0.9% 100 ml @ Titrate IV .Q0M [facility] Rx#:[id number] Magnesium Sulfate-D5w Pmx 200 1 gm In Dextrose/Water 1 100ml.bag @ 100 mls/hr IVPB Q1H [facility] Rx#: [id number] propofoL 1,000 mg In 23.875 Empty Bag 1 bag @ Titrate IV .Q0M [facility] Rx#: [id number] Oral 820 480 Blood Product 300 310 Rc As-1 Unit 0 310 [id number] Rc As-1 Unit 300 [id number] Output: Chest Tube Drainage 120 Bilateral Anterior Chest 100 Mediastinal 20 Urine 530 Estimated Blood Loss 500 Other: Voiding Method Urinal # Voids 2 1 ABP, PAP, CO, CI - Last Documented Arterial Blood Pressure 88/43 Pulmonary Artery Pressure 23/10 Cardiac Output 5.5 Cardiac Index 3.1 - Exam Gen: This is a 59-year-old male. On mechanical ventilation, sedated, in no distress. Patient is on multiple drips including nitroglycerin, propofol, not requiring any inotropes or any pressors. HEENT: Head is atraumatic, normocephalic. Pupils equal, round. Sclerae is ani cteric. Endotracheal tube and orogastric tube is intact. NECK: Supple. No JVD. No lymphadenopathy. No thyromegaly. LUNGS: Symmetrical chest expansion, fine crackles at the bases. HEART: Regular rate and rhythm. No murmur. Positive pericardial rub. ABDOMEN: Soft. Bowel sounds are present. No masses. No tenderness. EXTREMITIES: No pedal edema. No calf tenderness. NEUROLOGICAL: Could not be assessed, patient is sedated, just came back from the OR. Psychiatric: Could not assess - Labs CBC & Chem 7: 08/20/20 12:45 08/20/20 12:45 Labs: Abnormal Lab Results - Last 24 Hours (Table) 08/18/20 08/20/20 08/20/20 Range/Units 06:43 02:40 02:40 RBC 2.83 L (4.30-5.90) m/uL Hgb 9.2 L D (13.0-17.5) gm/dL Hct 26.8 L (39.0-53.0) % ABG pH (7.35-7.45) ABG pCO2 (35-45) mmHg ABG pO2 (83-108) mmHg ABG Total CO2 (19-24) mmol/L ABG O2 Saturation (94-97) % ABG Hematocrit (34.0-46.0) % ABG Potassium (3.4-4.5) mmol/L ABG Glucose (75-99) mg/dL ABG Lactic Acid (0.5-1.6) mmol/L Hemoglobin (13.0-17.5) gm/dL Sodium 134 L (137-145) mmol/L Chloride 108 H (98-107) mmol/L BUN 26 H (9-20) mg/dL Creatinine 2.14 H (0.66-1.25) mg/dL Glucose 112 H (74-99) mg/dL POC Glucose (mg/dL) (75-99) mg/dL Calcium (8.4-10.2) mg/dL Total Protein 5.8 L (6.3-8.2) g/dL Albumin 3.2 L (3.5-5.0) g/dL Arterial Blood Potassium (3.4-4.5) mmol/L Arterial Blood Glucose (75-99) mg/dL Crossmatch See Detail 08/20/20 08/20/20 08/20/20 Range/Units 06:09 08:25 10:03 RBC (4.30-5.90) m/uL Hgb (13.0-17.5) gm/dL Hct (39.0-53.0) % ABG pH 7.25 L (7.35-7.45) ABG pCO2 34 L 51 H (35-45) mmHg ABG pO2 327 H 276 H (83-108) mmHg ABG Total CO2 (19-24) mmol/L ABG O2 Saturation 100.0 H 99.8 H (94-97) % ABG Hematocrit 25 L 23 L (34.0-46.0) % ABG Potassium 4.8 H (3.4-4.5) mmol/L ABG Glucose 153 H 230 H (75-99) mg/dL ABG Lactic Acid 0.4 L (0.5-1.6) mmol/L Hemoglobin 8.1 L 7.6 L (13.0-17.5) gm/dL Sodium (137-145) mmol/L Chloride (98-107) mmol/L BUN (9-20) mg/dL Creatinine (0.66-1.25) mg/dL Glucose (74-99) mg/dL POC Glucose (mg/dL) 108 H (75-99) mg/dL Calcium (8.4-10.2) mg/dL Total Protein (6.3-8.2) g/dL Albumin (3.5-5.0) g/dL Arterial Blood Potassium 4.8 H (3.4-4.5) mmol/L Arterial Blood Glucose 153 H 230 H (75-99) mg/dL Crossmatch 08/20/20 08/20/20 08/20/20 Range/Units 10:13 10:37 11:04 RBC (4.30-5.90) m/uL Hgb (13.0-17.5) gm/dL Hct (39.0-53.0) % ABG pH 7.33 L (7.35-7.45) ABG pCO2 48 H (35-45) mmHg ABG pO2 249 H 228 H 234 H (83-108) mmHg ABG Total CO2 26 H 25 H (19-24) mmol/L ABG O2 Saturation 99.8 H 99.9 H 99.8 H (94-97) % ABG Hematocrit 23 L 22 L 21 L (34.0-46.0) % ABG Potassium (3.4-4.5) mmol/L ABG Glucose 227 H 198 H 172 H (75-99) mg/dL ABG Lactic Acid (0.5-1.6) mmol/L Hemoglobin 7.5 L 7.2 L 6.9 L* (13.0-17.5) gm/dL Sodium (137-145) mmol/L Chloride (98-107) mmol/L BUN (9-20) mg/dL Creatinine (0.66-1.25) mg/dL Glucose (74-99) mg/dL POC Glucose (mg/dL) (75-99) mg/dL Calcium (8.4-10.2) mg/dL Total Protein (6.3-8.2) g/dL Albumin (3.5-5.0) g/dL Arterial Blood Potassium (3.4-4.5) mmol/L Arterial Blood Glucose 227 H 198 H 172 H (75-99) mg/dL Crossmatch 08/20/20 08/20/20 08/20/20 Range/Units 11:34 12:45 12:45 RBC 2.27 L (4.30-5.90) m/uL Hgb 7.5 L D (13.0-17.5) gm/dL Hct 21.5 L (39.0-53.0) % ABG pH (7.35-7.45) ABG pCO2 (35-45) mmHg ABG pO2 242 H (83-108) mmHg ABG Total CO2 (19-24) mmol/L ABG O2 Saturation 100.0 H (94-97) % ABG Hematocrit 22 L (34.0-46.0) % ABG Potassium (3.4-4.5) mmol/L ABG Glucose 138 H (75-99) mg/dL ABG Lactic Acid 1.7 H (0.5-1.6) mmol/L Hemoglobin 7.2 L (13.0-17.5) gm/dL Sodium (137-145) mmol/L Chloride 112 H (98-107) mmol/L BUN 24 H (9-20) mg/dL Creatinine 1.96 H (0.66-1.25) mg/dL Glucose (74-99) mg/dL POC Glucose (mg/dL) (75-99) mg/dL Calcium 7.6 L (8.4-10.2) mg/dL Total Protein 4.8 L (6.3-8.2) g/dL Albumin 2.7 L (3.5-5.0) g/dL Arterial Blood Potassium (3.4-4.5) mmol/L Arterial Blood Glucose 138 H (75-99) mg/dL Crossmatch 08/20/20 08/20/20 08/20/20 Range/Units 13:45 13:54 14:18 RBC (4.30-5.90) m/uL Hgb (13.0-17.5) gm/dL Hct (39.0-53.0) % ABG pH 7.31 L (7.35-7.45) ABG pCO2 47 H (35-45) mmHg ABG pO2 >400 H (83-108) mmHg ABG Total CO2 25 H (19-24) mmol/L ABG O2 Saturation 100.0 H (94-97) % ABG Hematocrit (34.0-46.0) % ABG Potassium (3.4-4.5) mmol/L ABG Glucose (75-99) mg/dL ABG Lactic Acid (0.5-1.6) mmol/L Hemoglobin (13.0-17.5) gm/dL Sodium (137-145) mmol/L Chloride (98-107) mmol/L BUN (9-20) mg/dL Creatinine (0.66-1.25) mg/dL Glucose (74-99) mg/dL POC Glucose (mg/dL) 63 L 110 H (75-99) mg/dL Calcium (8.4-10.2) mg/dL Total Protein (6.3-8.2) g/dL Albumin (3.5-5.0) g/dL Arterial Blood Potassium (3.4-4.5) mmol/L Arterial Blood Glucose (75-99) mg/dL Crossmatch Microbiology - Last 24 Hours (Table) 08/13/20 21:58 Blood Culture - Final Blood No Growth after 144 hours Assessment and Plan Assessment: Impression: Status post off-pump CABG 3. Patient is in the ICU on mechanical ventilation. Acute non-ST elevation myocardial infarction Severe coronary artery disease. Severe carotid artery disease/right carotid artery stenosis may require surgery prior to CABG. Acute on chronic kidney disease. Type 1 diabetes. Benign essential hypertension. Chronic anemia of chronic kidney disease. Peripheral vessel occlusive disease. Tobacco dependence syndrome. Recommendation: Continue ventilatory support. Continue GI and DVT prophylaxis. Hemodynamic support if necessary. Will likely wean and extubate the patient in the next couple of hours. We'll continue to follow. Critical care time is over 30 minutes Time with Patient: Greater than 30
[2020-08-20] MEDS: ACETAMINOPHEN IV (For NPO) 1,000 MG in EMPTY BAG 1 BAG IVPB SCH ×2 (14:54→23:50)
[2020-08-20 15:18] LABS: Glucose,Whole Blood 141 mg/dL (75-99)
[2020-08-20] MEDS: IPRATROPIUM-ALBUTEROL 3 ML NEB INHALATION SCH ×2 (15:28→19:52)
[2020-08-20] MEDS ORDERED: fentaNYL (PF) 50 MCG/ML 2 ML AMP IVP STA ×2 (15:48→16:24)
[2020-08-20] MEDS ORDERED: IPRATROPIUM-ALBUTEROL 3 ML NEB INHALATION SCH (16:00)
[2020-08-20 16:12] LABS: ABG Base Excess -5.7 mmol/L; ABG HCO3 20 mmol/L (21-25); ABG Oxygen Saturation 99.9 % (94-97); ABG PCO2 39 mmHg (35-45); ABG PH 7.32 (7.35-7.45); ABG PO2 154 mmHg (83-108); ABG TCO2 22 mmol/L (19-24); Allen Test Performed? Yes
[2020-08-20 16:15] LABS: Glucose,Whole Blood 165 mg/dL (75-99)
[2020-08-20 16:57] LABS: Glucose,Whole Blood 179 mg/dL (75-99)
[2020-08-20 17:27] LABS: Basophils % (A) 0 %; Eosinophils # (A) 0.1 k/uL (0-0.7); Eosinophils % (A) 1 %; HCT 20.3 % (39.0-53.0); Lymphocytes # (A) 0.6 k/uL (1.0-4.8); Lymphocytes % (A) 7 %; MCH 30.2 pg (25.0-35.0); MCHC 31.8 g/dL (31.0-37.0); MCV 94.8 fL (80.0-100.0); Mean Platelet Volume 8.4; Monocytes # (A) 0.4 k/uL (0-1.0); Monocytes % (A) 5 %; Neutrophils # (A) 6.4 k/uL (1.3-7.7); Neutrophils % (A) 85 %; Platelet Count 169 k/uL (150-450); RBC 2.15 m/uL (4.30-5.90); RDW 15.9 % (11.5-15.5); WBC 7.6 k/uL (3.8-10.6)
[2020-08-20] MEDS: MAGNESIUM SULFATE-D5W PMX 1 GM in DEXTROSE/WATER 1 100ML.BAG IVPB SCH ×2 (17:45→20:14)
[2020-08-20 17:52] LABS: HGB 6.5 gm/dL (13.0-17.5)
[2020-08-20 18:02] LABS: Glucose,Whole Blood 154 mg/dL (75-99)
[2020-08-20 19:15] LABS: Glucose,Whole Blood 141 mg/dL (75-99)
[2020-08-20] MEDS: METOPROLOL TARTRATE 25 MG TAB PO SCH (19:15)
[2020-08-20] MEDS: HEPARIN SODIUM,PORCINE 5,000 UNIT/ML 1 ML VIAL SQ SCH (19:56)
[2020-08-20 20:09] LABS: Glucose,Whole Blood 104 mg/dL (75-99)
[2020-08-20 21:02] LABS: Glucose,Whole Blood 120 mg/dL (75-99)
[2020-08-20 22:05] LABS: Glucose,Whole Blood 131 mg/dL (75-99)
[2020-08-20 22:56] LABS: Glucose,Whole Blood 140 mg/dL (75-99)
[2020-08-20 23:39] LABS: Glucose,Whole Blood 148 mg/dL (75-99)
[2020-08-21] MEDS ORDERED: HYDROcodone/APAP 5-325MG 1 EACH TAB PO PRN (00:27)
[2020-08-21 01:00] LABS: Glucose,Whole Blood 127 mg/dL (75-99)
[2020-08-21 02:03] LABS: Glucose,Whole Blood 108 mg/dL (75-99)
[2020-08-21 02:56] LABS: Glucose,Whole Blood 127 mg/dL (75-99)
[2020-08-21 04:12] LABS: Glucose,Whole Blood 125 mg/dL (75-99)
[2020-08-21 04:32] LABS: Basophils % (A) 0 %; Eosinophils % (A) 0 %; Lymphocytes # (A) 0.9 k/uL (1.0-4.8); Lymphocytes % (A) 13 %; MCH 31.9 pg (25.0-35.0); MCHC 33.5 g/dL (31.0-37.0); MCV 95.2 fL (80.0-100.0); Mean Platelet Volume 8.6; Monocytes # (A) 0.5 k/uL (0-1.0); Monocytes % (A) 7 %; Neutrophils # (A) 5.7 k/uL (1.3-7.7); Neutrophils % (A) 79 %; Platelet Count 161 k/uL (150-450); RBC 2.04 m/uL (4.30-5.90); RDW 15.6 % (11.5-15.5); WBC 7.2 k/uL (3.8-10.6)
[2020-08-21] MEDS: HYDROcodone/APAP 5-325MG 1 EACH TAB PO PRN ×2 (04:33→12:12)
[2020-08-21 04:34] LABS: Ionized Calcium 4.8 mg/dL (4.5-5.3)
[2020-08-21 04:38] LABS: HCT 19.4 % (39.0-53.0); HGB 6.5 gm/dL (13.0-17.5)
[2020-08-21 04:43] LABS: Albumin 2.5 g/dL (3.5-5.0); Calcium 7.6 mg/dL (8.4-10.2); Magnesium 2.2 mg/dL (1.6-2.3); Potassium 4.5 mmol/L (3.5-5.1); Total Bilirubin 0.2 mg/dL (0.2-1.3); Total Protein 4.5 g/dL (6.3-8.2)
[2020-08-21 04:59] LABS: Glucose,Whole Blood 101 mg/dL (75-99)
[2020-08-21] MEDS ORDERED: fentaNYL (PF) 50 MCG/ML 2 ML AMP IVP ONE (06:07)
[2020-08-21] MEDS: HEPARIN SODIUM,PORCINE 5,000 UNIT/ML 1 ML VIAL SQ SCH ×3 (06:14→20:37)
[2020-08-21] MEDS: METOPROLOL TARTRATE 25 MG TAB PO SCH (06:14)
[2020-08-21 06:24] LABS: Glucose,Whole Blood 136 mg/dL (75-99)
[2020-08-21] MEDS ORDERED: MAGNESIUM HYDROXIDE 2,400 MG/10 ML CUP PO ONE (06:40)
[2020-08-21 06:55] LABS: Glucose,Whole Blood 129 mg/dL (75-99)
[2020-08-21] MEDS ORDERED: METOPROLOL TARTRATE 25 MG TAB PO STA (07:28)
[2020-08-21] MEDS ORDERED: HYDROcodone/APAP 7.5-325MG 1 EACH TAB PO PRN (07:29)
[2020-08-21] MEDS: IPRATROPIUM-ALBUTEROL 3 ML NEB INHALATION SCH ×4 (07:59→19:44)
[2020-08-21] MEDS: PANTOPRAZOLE 40 MG TABLET PO SCH (08:03)
[2020-08-21] MEDS: ASPIRIN 325 MG TAB PO SCH (08:03)
[2020-08-21] MEDS: ATORVASTATIN 80 MG TAB PO SCH (08:03)
[2020-08-21] MEDS: SODIUM BICARBONATE TAB 650 MG TAB PO SCH ×3 (08:04→20:35)
[2020-08-21] MEDS: HYDROcodone/APAP 7.5-325MG 1 EACH TAB PO PRN ×3 (08:04→20:35)
[2020-08-21] MEDS: CLOPIDOGREL 75 MG TAB PO SCH (08:04)
[2020-08-21 08:12] LABS: Glucose,Whole Blood 130 mg/dL (75-99)
--- NOTE | 2020-08-21 08:29 | PN ---
PROGRESS NOTE Mr. Knowles is a 59-year-old male with known history of diabetes, hyperlipidemia who presented with [id number] elevation myocardial infarction, was found to have severe coronary artery disease and underwent coronary artery bypass grafting yesterday. He is doing well this morning. He is extubated, sitting up in the chair in sinus mechanism. He has mild soreness in the chest. He was found preoperatively to have significant obstructive disease in the carotid artery that will be addressed at a later time. He continues to be on aspirin once a day, Lipitor 80 mg daily, metoprolol tartrate 50 mg twice a day. PHYSICAL EXAMINATION: Blood pressure 113/50 with the heart rate in the 80s. LUNGS: With few crackles at the bases. No wheezes. HEART: Regular rate and rhythm. S1, S2. No rub appreciated this morning. ABDOMEN: Soft and nontender. EXTREMITIES: With no edema. Chest x-ray revealed no pneumothorax. LAB DATA: Lab data revealed a hemoglobin of 6.5. BUN and creatinine 25 and 2.09, which is slightly worse than yesterday. IMPRESSION: 1. Status post coronary artery bypass grafting, stable. 2. History of diabetes. 3. Anemia. 4. Hypertension. 5. Hyperlipidemia. 6. Severe carotid disease. RECOMMENDATION: Will continue present therapy. Increase his level of activity. Follow his blood pressure. Depending on his progress, further recommendation will be made. MMODL / IJN: [id number] /
--- NOTE | 2020-08-21 08:36 | XR ---
EXAMINATION TYPE: XR chest 1V portable DATE OF EXAM: 08/21/2020 COMPARISON: 08/20/2020 INDICATION: Postoperative cardiac surgery TECHNIQUE: Single frontal view of the chest is obtained. FINDINGS: The heart size is normal. The pulmonary vasculature is normal. Some opacity is within the periphery of the left lower lung field. This is slightly worsened over the interval. Some stable platelike atelectasis is in the right peripheral lung. Endotracheal tube is been removed. Nasogastric tube is been removed. [place] catheter remains prese nt with the tip in the main pulmonary artery region. Mediastinal tube is present. Right-sided chest t ube is present. Left-sided chest tube is present. Small apical pneumothorax is present bilaterally IMPRESSION: 1. Minimal bilateral apical pneumothoraces, stable in the left slightly more prominent on the right. 2. Bibasilar infiltrates may be related to atelectasis. 3. Lines and catheters discussed above
[2020-08-21] MEDS ORDERED: SODIUM FERRIC GLUCONAT-SUCROSE 125 MG in SODIUM CHLORIDE 0.9% 100 ML IVPB ONE (08:48)
--- NOTE | 2020-08-21 08:56 | P.PN ---
Subjective Progress Note Date: 08/21/20 Principal diagnosis: Triple-vessel coronary artery disease, non-STEMI this admission, bilateral internal carotid artery stenosis, right 99%, left 70% per angiogram. 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 POD #1 Off-pump CABG 3 with REID to LAD, saphenous vein grafts to first obtuse marginal and right coronary arteries, exclusion of left atrial appendage with 35 mm AtriCure clip. Postoperative acute blood loss anemia, expected due to history of chronic anemia and hemodilution. The patient was seen in follow-up today 08/21/2020 at his bedside in the intensive care unit. Currently he is sitting up to the bedside chair, he is awake, alert and oriented x3. Denies any complaints of shortness of breath, although is complaining of some surgical type pain to his chest tube insertion sites. He rates his pain 8/10 on the pain scale. He was successfully extubated at 16:22 pm last night and is currently on room air with oxygen saturations 98%. He is achieving 1000 ml on his incentive spirometry with encouragement. Bedside telemetry is showing normal sinus rhythm with heart rate 92 bpm. He remains hemodynamically stable with current cardiac output showing 6.1, cardiac index 3.5, PA pressures 29/9, CVP 6 mmHg. Mediastinal, left and right pleural chest tubes remain in place to low continuous wall suction -20 cm H2O. No air leak is present. Draining thin serosanguineous drainage. Pleural chest tubes with 410 mL output in the last 8 hours and 650 mL output since surgery. Mediastinal chest tube with 80 mL output the last 8 hours and 310 mL output since surgery. Objective - Vital Signs Vital signs: Vital Signs Temp 98.8 F 08/21/20 04:00 Pulse 84 08/21/20 07:59 Resp 14 08/21/20 07:00 BP 85/47 08/20/20 14:00 Pulse Ox 96 08/21/20 07:00 Intake & Output 08/20/20 08/21/20 08/21/20 18:59 06:59 18:59 Intake Total 477.755 0867.218 54.5 Output Total 1640 1545 50 Balance -718.578 -190.782 4.5 Weight 62.233 kg Intake: IV 865.0 851.0 54.5 Albumin Human 5% 250 ml 500 In Empty Bag 1 bag @ 250 mls/hr IVPB Q1HR PRN Rx#: [id number] CO/CI 200 Lactated Ringers 1,000 ml 300 600 50 @ 20 mls/hr IV .Q24H JACKI Rx#:[id number] Nitroglycerin-D5w Pmx 50 9.0 18.0 1.5 mg In Dextrose/Water 1 250ml.bag @ 5 MCG/MIN 1.5 mls/hr IV .Q24H JACKI Rx#: [id number] Pressure bag 0.9 33 3 Intake, IV Titration 56.422 263.218 Amount ACETAMINOPHEN IV (For NPO 100 ) 1,000 mg In Empty Bag 1 bag @ 400 mls/hr IVPB Q6HR JACKI Rx#:[id number] Clevidipine Butyrate 25 7.401 mg In Empty Bag 1 bag @ 1 MG/HR 2 mls/hr IV .Q24H JACKI Rx#:[id number] DOPamine DRIP 800 mg In 6.837 Dextrose/Water 1 250ml. bag @ 2 MCG/KG/MIN 2.344 mls/hr IV .Q24H JACKI Rx#: [id number] Insulin Regular 100 unit 12.230 5.817 In Sodium Chloride 0.9% 100 ml @ Per Protocol IV .Q0M JACKI Rx#:[id number] Insulin Regular 100 unit 0.417 In Sodium Chloride 0.9% 100 ml @ Titrate IV .Q0M ONE Rx#:[id number] Magnesium Sulfate-D5w Pmx 100 1 gm In Dextrose/Water 1 100ml.bag @ 100 mls/hr IVPB Q1H JACKI Rx#: [id number] ceFAZolin 2 gm In Sodium 50 Chloride 0.9% 50 ml @ 100 mls/hr IVPB Q8HR JACKI Rx# :[id number] propofoL 1,000 mg In 36.938 Empty Bag 1 bag @ Titrate IV .Q0M JACKI Rx#: [id number] Oral 240 Output: Chest Tube Drainage 460 730 20 Bilateral Anterior Chest 300 560 20 Mediastinal 160 170 0 Urine 680 815 30 Estimated Blood Loss 500 Other: Voiding Method Indwelling Catheter Indwelling Catheter # Voids 1 ABP, PAP, CO, CI - Last Documented Arterial Blood Pressure 113/45 Pulmonary Artery Pressure 23/7 Cardiac Output 6.1 Cardiac Index 3.5 - Constitutional General appearance: Present: average body habitus, cooperative, no acute distress - EENT Eyes: Present: PERRLA, normal appearance. Absent: scleral icterus ENT: Present: hearing grossly normal - Neck Details: Neck is supple, no JVD. Right IJ Cordis with Sheffield-Sybil catheter remains in place and functioning. - Respiratory Details: Lung sounds essentially clear throughout, diminished to his bilateral bases. No wheezes, rhonchi or crackles. Respirations are symmetrical and nonlabored. Oxygen saturation is 98% on room air. Achieving 1000 mL on his incentive spirometry with encouragement. Mediastinal, left and right pleural chest tubes remain in place to low continuous wall suction -20 cm H2O. No air leak is present. Draining thin serosanguineous drainage. Pleural chest tubes with 410 mL output in the last 8 hours and 650 mL output since surgery. Mediastinal chest tube with 80 mL output the last 8 hours and 310 mL output since surgery. - Cardiovascular Details: Regular rhythm and rate. S1 and S2 present, negative for S3, gallop or murmur. Sternum is stable. Bedside telemetry showing normal sinus rhythm heart rate 92 BPM. Right IJ cordis and Sheffield-Sybil catheter in place, current hemodynamic showing a cardiac output 6.1, cardiac index 3.5, PA pressures 29/9 and CVP 6 mmHg. Right radial arterial line in place and functioning. Knee-high RUTHANN hose and sequential compression devices in place to his bilateral lower extremities. Heart hugger is in place and he is demonstrating appropriate use. - Gastrointestinal Gastrointestinal Comment(s): Abdomen soft, nontender and nondistended. Hypoactive bowel sounds present in all 4 abdominal quadrants. No guarding or rigidity. No organomegaly appreciated. Tolerating clear liquids. - Genitourinary Genitourinary Comment(s): Ramirez catheter for accurate I&O. Draining clear yellow urine. 495 mL output in the last 8 hours. - Integumentary Integumentary Comment(s): Skin is warm and dry. No clubbing or cyanosis is present. Midline sternal incision is clean, dry and approximated. No drainage or redness is present. Left lower extremity EVH site is clean, dry and approximated. No drainage or redness is present. - Neurologic Neurologic: Present: CNII-XII intact - Musculoskeletal Musculoskeletal: Present: gait normal, generalized weakness, strength equal bilaterally - Psychiatric Psychiatric: Present: A&O x's 3, appropriate affect, intact judgment & insight - Allied health notes Allied health notes reviewed: nursing - Labs CBC & Chem 7: 08/21/20 04:10 08/21/20 04:10 Labs: Abnormal Lab Results - Last 24 Hours (Table) 08/18/20 08/20/20 08/20/20 Range/Units 06:43 08:25 10:03 RBC (4.30-5.90) m/uL Hgb (13.0-17.5) gm/dL Hct (39.0-53.0) % RDW (11.5-15.5) % Lymphocytes # (1.0-4.8) k/uL ABG pH 7.25 L (7.35-7.45) ABG pCO2 34 L 51 H (35-45) mmHg ABG pO2 327 H 276 H (83-108) mmHg ABG HCO3 (21-25) mmol/L ABG Total CO2 (19-24) mmol/L ABG O2 Saturation 100.0 H 99.8 H (94-97) % ABG Hematocrit 25 L 23 L (34.0-46.0) % ABG Potassium 4.8 H (3.4-4.5) mmol/L ABG Glucose 153 H 230 H (75-99) mg/dL ABG Lactic Acid 0.4 L (0.5-1.6) mmol/L Hemoglobin 8.1 L 7.6 L (13.0-17.5) gm/dL Sodium (137-145) mmol/L Chloride (98-107) mmol/L BUN (9-20) mg/dL Creatinine (0.66-1.25) mg/dL Glucose (74-99) mg/dL POC Glucose (mg/dL) (75-99) mg/dL Calcium (8.4-10.2) mg/dL Total Protein (6.3-8.2) g/dL Albumin (3.5-5.0) g/dL Arterial Blood Potassium 4.8 H (3.4-4.5) mmol/L Arterial Blood Glucose 153 H 230 H (75-99) mg/dL Crossmatch See Detail 08/20/20 08/20/20 08/20/20 Range/Units 10:13 10:37 11:04 RBC (4.30-5.90) m/uL Hgb (13.0-17.5) gm/dL Hct (39.0-53.0) % RDW (11.5-15.5) % Lymphocytes # (1.0-4.8) k/uL ABG pH 7.33 L (7.35-7.45) ABG pCO2 48 H (35-45) mmHg ABG pO2 249 H 228 H 234 H (83-108) mmHg ABG HCO3 (21-25) mmol/L ABG Total CO2 26 H 25 H (19-24) mmol/L ABG O2 Saturation 99.8 H 99.9 H 99.8 H (94-97) % ABG Hematocrit 23 L 22 L 21 L (34.0-46.0) % ABG Potassium (3.4-4.5) mmol/L ABG Glucose 227 H 198 H 172 H (75-99) mg/dL ABG Lactic Acid (0.5-1.6) mmol/L Hemoglobin 7.5 L 7.2 L 6.9 L* (13.0-17.5) gm/dL Sodium (137-145) mmol/L Chloride (98-107) mmol/L BUN (9-20) mg/dL Creatinine (0.66-1.25) mg/dL Glucose (74-99) mg/dL POC Glucose (mg/dL) (75-99) mg/dL Calcium (8.4-10.2) mg/dL Total Protein (6.3-8.2) g/dL Albumin (3.5-5.0) g/dL Arterial Blood Potassium (3.4-4.5) mmol/L Arterial Blood Glucose 227 H 198 H 172 H (75-99) mg/dL Crossmatch 08/20/20 08/20/20 08/20/20 Range/Units 11:34 12:45 12:45 RBC 2.27 L (4.30-5.90) m/uL Hgb 7.5 L D (13.0-17.5) gm/dL Hct 21.5 L (39.0-53.0) % RDW (11.5-15.5) % Lymphocytes # (1.0-4.8) k/uL ABG pH (7.35-7.45) ABG pCO2 (35-45) mmHg ABG pO2 242 H (83-108) mmHg ABG HCO3 (21-25) mmol/L ABG Total CO2 (19-24) mmol/L ABG O2 Saturation 100.0 H (94-97) % ABG Hematocrit 22 L (34.0-46.0) % ABG Potassium (3.4-4.5) mmol/L ABG Glucose 138 H (75-99) mg/dL ABG Lactic Acid 1.7 H (0.5-1.6) mmol/L Hemoglobin 7.2 L (13.0-17.5) gm/dL Sodium (137-145) mmol/L Chloride 112 H (98-107) mmol/L BUN 24 H (9-20) mg/dL Creatinine 1.96 H (0.66-1.25) mg/dL Glucose (74-99) mg/dL POC Glucose (mg/dL) (75-99) mg/dL Calcium 7.6 L (8.4-10.2) mg/dL Total Protein 4.8 L (6.3-8.2) g/dL Albumin 2.7 L (3.5-5.0) g/dL Arterial Blood Potassium (3.4-4.5) mmol/L Arterial Blood Glucose 138 H (75-99) mg/dL Crossmatch 08/20/20 08/20/20 08/20/20 Range/Units 13:45 13:54 14:18 RBC (4.30-5.90) m/uL Hgb (13.0-17.5) gm/dL Hct (39.0-53.0) % RDW (11.5-15.5) % Lymphocytes # (1.0-4.8) k/uL ABG pH 7.31 L (7.35-7.45) ABG pCO2 47 H (35-45) mmHg ABG pO2 >400 H (83-108) mmHg ABG HCO3 (21-25) mmol/L ABG Total CO2 25 H (19-24) mmol/L ABG O2 Saturation 100.0 H (94-97) % ABG Hematocrit (34.0-46.0) % ABG Potassium (3.4-4.5) mmol/L ABG Glucose (75-99) mg/dL ABG Lactic Acid (0.5-1.6) mmol/L Hemoglobin (13.0-17.5) gm/dL Sodium (137-145) mmol/L Chloride (98-107) mmol/L BUN (9-20) mg/dL Creatinine (0.66-1.25) mg/dL Glucose (74-99) mg/dL POC Glucose (mg/dL) 63 L 110 H (75-99) mg/dL Calcium (8.4-10.2) mg/dL Total Protein (6.3-8.2) g/dL Albumin (3.5-5.0) g/dL Arterial Blood Potassium (3.4-4.5) mmol/L Arterial Blood Glucose (75-99) mg/dL Crossmatch 08/20/20 08/20/20 08/20/20 Range/Units 15:17 16:09 16:12 RBC (4.30-5.90) m/uL Hgb (13.0-17.5) gm/dL Hct (39.0-53.0) % RDW (11.5-15.5) % Lymphocytes # (1.0-4.8) k/uL ABG pH 7.32 L (7.35-7.45) ABG pCO2 (35-45) mmHg ABG pO2 154 H (83-108) mmHg ABG HCO3 20 L (21-25) mmol/L ABG Total CO2 (19-24) mmol/L ABG O2 Saturation 99.9 H (94-97) % ABG Hematocrit (34.0-46.0) % ABG Potassium (3.4-4.5) mmol/L ABG Glucose (75-99) mg/dL ABG Lactic Acid (0.5-1.6) mmol/L Hemoglobin (13.0-17.5) gm/dL Sodium (137-145) mmol/L Chloride (98-107) mmol/L BUN (9-20) mg/dL Creatinine (0.66-1.25) mg/dL Glucose (74-99) mg/dL POC Glucose (mg/dL) 141 H 165 H (75-99) mg/dL Calcium (8.4-10.2) mg/dL Total Protein (6.3-8.2) g/dL Albumin (3.5-5.0) g/dL Arterial Blood Potassium (3.4-4.5) mmol/L Arterial Blood Glucose (75-99) mg/dL Crossmatch 08/20/20 08/20/20 08/20/20 Range/Units 16:56 17:12 17:59 RBC 2.15 L (4.30-5.90) m/uL Hgb 6.5 L* (13.0-17.5) gm/dL Hct 20.3 L (39.0-53.0) % RDW 15.9 H (11.5-15.5) % Lymphocytes # 0.6 L (1.0-4.8) k/uL ABG pH (7.35-7.45) ABG pCO2 (35-45) mmHg ABG pO2 (83-108) mmHg ABG HCO3 (21-25) mmol/L ABG Total CO2 (19-24) mmol/L ABG O2 Saturation (94-97) % ABG Hematocrit (34.0-46.0) % ABG Potassium (3.4-4.5) mmol/L ABG Glucose (75-99) mg/dL ABG Lactic Acid (0.5-1.6) mmol/L Hemoglobin (13.0-17.5) gm/dL Sodium (137-145) mmol/L Chloride (98-107) mmol/L BUN (9-20) mg/dL Creatinine (0.66-1.25) mg/dL Glucose (74-99) mg/dL POC Glucose (mg/dL) 179 H 154 H (75-99) mg/dL Calcium (8.4-10.2) mg/dL Total Protein (6.3-8.2) g/dL Albumin (3.5-5.0) g/dL Arterial Blood Potassium (3.4-4.5) mmol/L Arterial Blood Glucose (75-99) mg/dL Crossmatch 08/20/20 08/20/20 08/20/20 Range/Units 19:08 20:07 21:01 RBC (4.30-5.90) m/uL Hgb (13.0-17.5) gm/dL Hct (39.0-53.0) % RDW (11.5-15.5) % Lymphocytes # (1.0-4.8) k/uL ABG pH (7.35-7.45) ABG pCO2 (35-45) mmHg ABG pO2 (83-108) mmHg ABG HCO3 (21-25) mmol/L ABG Total CO2 (19-24) mmol/L ABG O2 Saturation (94-97) % ABG Hematocrit (34.0-46.0) % ABG Potassium (3.4-4.5) mmol/L ABG Glucose (75-99) mg/dL ABG Lactic Acid (0.5-1.6) mmol/L Hemoglobin (13.0-17.5) gm/dL Sodium (137-145) mmol/L Chloride (98-107) mmol/L BUN (9-20) mg/dL Creatinine (0.66-1.25) mg/dL Glucose (74-99) mg/dL POC Glucose (mg/dL) 141 H 104 H 120 H (75-99) mg/dL Calcium (8.4-10.2) mg/dL Total Protein (6.3-8.2) g/dL Albumin (3.5-5.0) g/dL Arterial Blood Potassium (3.4-4.5) mmol/L Arterial Blood Glucose (75-99) mg/dL Crossmatch 08/20/20 08/20/20 08/20/20 Range/Units 22:04 22:55 23:37 RBC (4.30-5.90) m/uL Hgb (13.0-17.5) gm/dL Hct (39.0-53.0) % RDW (11.5-15.5) % Lymphocytes # (1.0-4.8) k/uL ABG pH (7.35-7.45) ABG pCO2 (35-45) mmHg ABG pO2 (83-108) mmHg ABG HCO3 (21-25) mmol/L ABG Total CO2 (19-24) mmol/L ABG O2 Saturation (94-97) % ABG Hematocrit (34.0-46.0) % ABG Potassium (3.4-4.5) mmol/L ABG Glucose (75-99) mg/dL ABG Lactic Acid (0.5-1.6) mmol/L Hemoglobin (13.0-17.5) gm/dL Sodium (137-145) mmol/L Chloride (98-107) mmol/L BUN (9-20) mg/dL Creatinine (0.66-1.25) mg/dL Glucose (74-99) mg/dL POC Glucose (mg/dL) 131 H 140 H 148 H (75-99) mg/dL Calcium (8.4-10.2) mg/dL Total Protein (6.3-8.2) g/dL Albumin (3.5-5.0) g/dL Arterial Blood Potassium (3.4-4.5) mmol/L Arterial Blood Glucose (75-99) mg/dL Crossmatch 08/21/20 08/21/20 08/21/20 Range/Units 00:57 02:02 02:54 RBC (4.30-5.90) m/uL Hgb (13.0-17.5) gm/dL Hct (39.0-53.0) % RDW (11.5-15.5) % Lymphocytes # (1.0-4.8) k/uL ABG pH (7.35-7.45) ABG pCO2 (35-45) mmHg ABG pO2 (83-108) mmHg ABG HCO3 (21-25) mmol/L ABG Total CO2 (19-24) mmol/L ABG O2 Saturation (94-97) % ABG Hematocrit (34.0-46.0) % ABG Potassium (3.4-4.5) mmol/L ABG Glucose (75-99) mg/dL ABG Lactic Acid (0.5-1.6) mmol/L Hemoglobin (13.0-17.5) gm/dL Sodium (137-145) mmol/L Chloride (98-107) mmol/L BUN (9-20) mg/dL Creatinine (0.66-1.25) mg/dL Glucose (74-99) mg/dL POC Glucose (mg/dL) 127 H 108 H 127 H (75-99) mg/dL Calcium (8.4-10.2) mg/dL Total Protein (6.3-8.2) g/dL Albumin (3.5-5.0) g/dL Arterial Blood Potassium (3.4-4.5) mmol/L Arterial Blood Glucose (75-99) mg/dL Crossmatch 08/21/20 08/21/20 08/21/20 Range/Units 04:10 04:10 04:10 RBC 2.04 L (4.30-5.90) m/uL Hgb 6.5 L* (13.0-17.5) gm/dL Hct 19.4 L* (39.0-53.0) % RDW 15.6 H (11.5-15.5) % Lymphocytes # 0.9 L (1.0-4.8) k/uL ABG pH (7.35-7.45) ABG pCO2 (35-45) mmHg ABG pO2 (83-108) mmHg ABG HCO3 (21-25) mmol/L ABG Total CO2 (19-24) mmol/L ABG O2 Saturation (94-97) % ABG Hematocrit (34.0-46.0) % ABG Potassium (3.4-4.5) mmol/L ABG Glucose (75-99) mg/dL ABG Lactic Acid (0.5-1.6) mmol/L Hemoglobin (13.0-17.5) gm/dL Sodium 132 L (137-145) mmol/L Chloride (98-107) mmol/L BUN 25 H (9-20) mg/dL Creatinine 2.09 H (0.66-1.25) mg/dL Glucose 108 H (74-99) mg/dL POC Glucose (mg/dL) 125 H (75-99) mg/dL Calcium 7.6 L (8.4-10.2) mg/dL Total Protein 4.5 L (6.3-8.2) g/dL Albumin 2.5 L (3.5-5.0) g/dL Arterial Blood Potassium (3.4-4.5) mmol/L Arterial Blood Glucose (75-99) mg/dL Crossmatch 08/21/20 08/21/20 08/21/20 Range/Units 04:58 06:22 06:54 RBC (4.30-5.90) m/uL Hgb (13.0-17.5) gm/dL Hct (39.0-53.0) % RDW (11.5-15.5) % Lymphocytes # (1.0-4.8) k/uL ABG pH (7.35-7.45) ABG pCO2 (35-45) mmHg ABG pO2 (83-108) mmHg ABG HCO3 (21-25) mmol/L ABG Total CO2 (19-24) mmol/L ABG O2 Saturation (94-97) % ABG Hematocrit (34.0-46.0) % ABG Potassium (3.4-4.5) mmol/L ABG Glucose (75-99) mg/dL ABG Lactic Acid (0.5-1.6) mmol/L Hemoglobin (13.0-17.5) gm/dL Sodium (137-145) mmol/L Chloride (98-107) mmol/L BUN (9-20) mg/dL Creatinine (0.66-1.25) mg/dL Glucose (74-99) mg/dL POC Glucose (mg/dL) 101 H 136 H 129 H (75-99) mg/dL Calcium (8.4-10.2) mg/dL Total Protein (6.3-8.2) g/dL Albumin (3.5-5.0) g/dL Arterial Blood Potassium (3.4-4.5) mmol/L Arterial Blood Glucose (75-99) mg/dL Crossmatch - Imaging and Cardiology Chest x-ray: report reviewed, image reviewed Assessment and Plan Assessment: 1. Triple-vessel coronary artery disease, status post triple vessel coronary artery bypass grafting surgery. 2. Non-STEMI this admission 2. History of coronary artery disease with stent placement to the right coronary artery in 2004 4. Hypertension 5. Hyperlipidemia, treated, cholesterol 161, LDL 85 6. Type 1 insulin-dependent diabetes with insulin pump in place and peripheral neuropathy, hemoglobin A1c 8.1% 7. Chronic kidney disease stage IV with chronic anemia 8. Current tobacco dependence, FEV1 78% of predicted 9. Chronic right foot wound with MRSA infection in 2015 10. History of peripheral vascular disease with left second and third toe amputation 11. Dupuytren's contracture to bilateral hands 12. Occasional EtOH use, 1-2 drinks weekly 13. Occasional marijuana use 14. Family history of premature coronary artery disease with both father and brother having CABG in their early 50s 15. Both parents from brain aneurysm in their 70s 16. Bilateral internal carotid artery stenosis, right 99%, left 70% per angiogram Plan: 1. Continue aspirins, statin, Plavix, and beta jaxon. Will increase metoprolol tartrate to 50 mg by mouth twice a day. 2. Discontinue IV nitro. 3. Wean O2 as tolerated. Encourage incentive spirometry 10 times every hour while awake. Bronchodilators per pulmonology/critical care management. 4. Increase activity, ambulate as tolerated. PT/OT/cardiac rehab consulted. 5. Will monitor daily labs and chest x-rays. Electrolyte replacement per protocol. 6. GI/DVT prophylaxis 7. Insulin management per primary care service. 8. Pain control with current medication regimen. Increase [place] to 7.5/325 1 to 2 tablets by mouth every 4 hours when necessary pain. 9. Discontinue Cordis and Sheffield-Sybil catheter. 10. Removed mediastinal chest tube. Split left and right pleural chest tubes keep in place for another 24 hours. 11. Keep Ramirez catheter for another 24 hours for strict accurate intake and output. Daily weights 12. Avoid nephrotoxic agents. Diuretic recommendations and management per nephrology. 13. Ferrlecit 125 mg IV piggyback 1 now. 14. More recommendations to follow based on patient's clinical course. Time with Patient: Greater than 30
[2020-08-21] MEDS ORDERED: PANTOPRAZOLE 40 MG/10 ML VIAL IVP SCH (09:00)
[2020-08-21] MEDS ORDERED: METOPROLOL TARTRATE 12.5 MG TAB PO SCH (09:00)
[2020-08-21] MEDS ORDERED: MAGNESIUM HYDROXIDE 2,400 MG/10 ML CUP PO PRN (09:00)
[2020-08-21] MEDS ORDERED: bisacodyL 10 MG SUPP RECTAL PRN (09:00)
[2020-08-21 09:51] VITALS: BMI 19.1
[2020-08-21 10:17] LABS: Glucose,Whole Blood 208 mg/dL (75-99)
--- NOTE | 2020-08-21 10:17 | P.PN ---
Subjective Patient is seen in follow-up for acute kidney injury on chronic kidney disease. Status post CABG on August 20. Renal function stable. Off IV fluids. Awake and alert. No chest pain or shortness of breath. Vital signs are stable. General: No JVD. HEENT: Head exam is unremarkable. LUNGS: Breath sounds decreased. Chest tubes noted. HEART: Rate and Rhythm are regular. ABDOMEN: Soft, nontender. EXTREMITITES: No edema. Objective - Vital Signs Vital signs: Vital Signs Temp 37.2 F L 08/21/20 08:00 Pulse 89 08/21/20 10:00 Resp 12 08/21/20 10:00 BP 107/75 08/21/20 10:00 Pulse Ox 98 08/21/20 10:00 Intake & Output 08/20/20 08/21/20 08/21/20 18:59 06:59 18:59 Intake Total 916.670 1447.218 393.0 Output Total 1640 1545 325 Balance -718.578 -190.782 68.0 Weight 62.233 kg 62.233 kg Intake: IV 865.0 851.0 193.0 Albumin Human 5% 250 ml 500 In Empty Bag 1 bag @ 250 mls/hr IVPB Q1HR PRN Rx#: [id number] CO/CI 200 20 Lactated Ringers 1,000 ml 300 600 140 @ 20 mls/hr IV .Q24H [facility] Rx#:[id number] Nitroglycerin-D5w Pmx 50 9.0 18.0 3.0 mg In Dextrose/Water 1 250ml.bag @ 5 MCG/MIN 1.5 mls/hr IV .Q24H [facility] Rx#: [id number] Pressure bag 0.9 33 30 Intake, IV Titration 56.422 263.218 Amount ACETAMINOPHEN IV (For NPO 100 ) 1,000 mg In Empty Bag 1 bag @ 400 mls/hr IVPB Q6HR [facility] Rx#:[id number] Clevidipine Butyrate 25 7.401 mg In Empty Bag 1 bag @ 1 MG/HR 2 mls/hr IV .Q24H [facility] Rx#:[id number] DOPamine DRIP 800 mg In 6.837 Dextrose/Water 1 250ml. bag @ 2 MCG/KG/MIN 2.344 mls/hr IV .Q24H [facility] Rx#: [id number] Insulin Regular 100 unit 12.230 5.817 In Sodium Chloride 0.9% 100 ml @ Per Protocol IV .Q0M [facility] Rx#:[id number] Insulin Regular 100 unit 0.417 In Sodium Chloride 0.9% 100 ml @ Titrate IV .Q0M [facility] Rx#:[id number] Magnesium Sulfate-D5w Pmx 100 1 gm In Dextrose/Water 1 100ml.bag @ 100 mls/hr IVPB Q1H [facility] Rx#: [id number] ceFAZolin 2 gm In Sodium 50 Chloride 0.9% 50 ml @ 100 mls/hr IVPB Q8HR [facility] Rx# :[id number] propofoL 1,000 mg In 36.938 Empty Bag 1 bag @ Titrate IV .Q0M [facility] Rx#: [id number] Oral 240 200 Output: Chest Tube Drainage 460 730 180 Bilateral Anterior Chest 300 560 130 Mediastinal 160 170 50 Urine 680 815 145 Estimated Blood Loss 500 Other: Voiding Method Indwelling Catheter Indwelling Catheter Indwelling Catheter # Voids 1 ABP, PAP, CO, CI - Last Documented Arterial Blood Pressure 134/55 Pulmonary Artery Pressure 32/15 Cardiac Output 7.1 Cardiac Index 4.1 - Labs CBC & Chem 7: 08/21/20 04:10 08/21/20 04:10 Labs: Abnormal Lab Results - Last 24 Hours (Table) 08/18/20 08/20/20 08/20/20 Range/Units 06:43 08:25 10:03 RBC (4.30-5.90) m/uL Hgb (13.0-17.5) gm/dL Hct (39.0-53.0) % RDW (11.5-15.5) % Lymphocytes # (1.0-4.8) k/uL ABG pH 7.25 L (7.35-7.45) ABG pCO2 34 L 51 H (35-45) mmHg ABG pO2 327 H 276 H (83-108) mmHg ABG HCO3 (21-25) mmol/L ABG Total CO2 (19-24) mmol/L ABG O2 Saturation 100.0 H 99.8 H (94-97) % ABG Hematocrit 25 L 23 L (34.0-46.0) % ABG Potassium 4.8 H (3.4-4.5) mmol/L ABG Glucose 153 H 230 H (75-99) mg/dL ABG Lactic Acid 0.4 L (0.5-1.6) mmol/L Hemoglobin 8.1 L 7.6 L (13.0-17.5) gm/dL Sodium (137-145) mmol/L Chloride (98-107) mmol/L BUN (9-20) mg/dL Creatinine (0.66-1.25) mg/dL Glucose (74-99) mg/dL POC Glucose (mg/dL) (75-99) mg/dL Calcium (8.4-10.2) mg/dL Total Protein (6.3-8.2) g/dL Albumin (3.5-5.0) g/dL Arterial Blood Potassium 4.8 H (3.4-4.5) mmol/L Arterial Blood Glucose 153 H 230 H (75-99) mg/dL Crossmatch See Detail 08/20/20 08/20/20 08/20/20 Range/Units 10:13 10:37 11:04 RBC (4.30-5.90) m/uL Hgb (13.0-17.5) gm/dL Hct (39.0-53.0) % RDW (11.5-15.5) % Lymphocytes # (1.0-4.8) k/uL ABG pH 7.33 L (7.35-7.45) ABG pCO2 48 H (35-45) mmHg ABG pO2 249 H 228 H 234 H (83-108) mmHg ABG HCO3 (21-25) mmol/L ABG Total CO2 26 H 25 H (19-24) mmol/L ABG O2 Saturation 99.8 H 99.9 H 99.8 H (94-97) % ABG Hematocrit 23 L 22 L 21 L (34.0-46.0) % ABG Potassium (3.4-4.5) mmol/L ABG Glucose 227 H 198 H 172 H (75-99) mg/dL ABG Lactic Acid (0.5-1.6) mmol/L Hemoglobin 7.5 L 7.2 L 6.9 L* (13.0-17.5) gm/dL Sodium (137-145) mmol/L Chloride (98-107) mmol/L BUN (9-20) mg/dL Creatinine (0.66-1.25) mg/dL Glucose (74-99) mg/dL POC Glucose (mg/dL) (75-99) mg/dL Calcium (8.4-10.2) mg/dL Total Protein (6.3-8.2) g/dL Albumin (3.5-5.0) g/dL Arterial Blood Potassium (3.4-4.5) mmol/L Arterial Blood Glucose 227 H 198 H 172 H (75-99) mg/dL Crossmatch 08/20/20 08/20/20 08/20/20 Range/Units 11:34 12:45 12:45 RBC 2.27 L (4.30-5.90) m/uL Hgb 7.5 L D (13.0-17.5) gm/dL Hct 21.5 L (39.0-53.0) % RDW (11.5-15.5) % Lymphocytes # (1.0-4.8) k/uL ABG pH (7.35-7.45) ABG pCO2 (35-45) mmHg ABG pO2 242 H (83-108) mmHg ABG HCO3 (21-25) mmol/L ABG Total CO2 (19-24) mmol/L ABG O2 Saturation 100.0 H (94-97) % ABG Hematocrit 22 L (34.0-46.0) % ABG Potassium (3.4-4.5) mmol/L ABG Glucose 138 H (75-99) mg/dL ABG Lactic Acid 1.7 H (0.5-1.6) mmol/L Hemoglobin 7.2 L (13.0-17.5) gm/dL Sodium (137-145) mmol/L Chloride 112 H (98-107) mmol/L BUN 24 H (9-20) mg/dL Creatinine 1.96 H (0.66-1.25) mg/dL Glucose (74-99) mg/dL POC Glucose (mg/dL) (75-99) mg/dL Calcium 7.6 L (8.4-10.2) mg/dL Total Protein 4.8 L (6.3-8.2) g/dL Albumin 2.7 L (3.5-5.0) g/dL Arterial Blood Potassium (3.4-4.5) mmol/L Arterial Blood Glucose 138 H (75-99) mg/dL Crossmatch 08/20/20 08/20/20 08/20/20 Range/Units 13:45 13:54 14:18 RBC (4.30-5.90) m/uL Hgb (13.0-17.5) gm/dL Hct (39.0-53.0) % RDW (11.5-15.5) % Lymphocytes # (1.0-4.8) k/uL ABG pH 7.31 L (7.35-7.45) ABG pCO2 47 H (35-45) mmHg ABG pO2 >400 H (83-108) mmHg ABG HCO3 (21-25) mmol/L ABG Total CO2 25 H (19-24) mmol/L ABG O2 Saturation 100.0 H (94-97) % ABG Hematocrit (34.0-46.0) % ABG Potassium (3.4-4.5) mmol/L ABG Glucose (75-99) mg/dL ABG Lactic Acid (0.5-1.6) mmol/L Hemoglobin (13.0-17.5) gm/dL Sodium (137-145) mmol/L Chloride (98-107) mmol/L BUN (9-20) mg/dL Creatinine (0.66-1.25) mg/dL Glucose (74-99) mg/dL POC Glucose (mg/dL) 63 L 110 H (75-99) mg/dL Calcium (8.4-10.2) mg/dL Total Protein (6.3-8.2) g/dL Albumin (3.5-5.0) g/dL Arterial Blood Potassium (3.4-4.5) mmol/L Arterial Blood Glucose (75-99) mg/dL Crossmatch 08/20/20 08/20/20 08/20/20 Range/Units 15:17 16:09 16:12 RBC (4.30-5.90) m/uL Hgb (13.0-17.5) gm/dL Hct (39.0-53.0) % RDW (11.5-15.5) % Lymphocytes # (1.0-4.8) k/uL ABG pH 7.32 L (7.35-7.45) ABG pCO2 (35-45) mmHg ABG pO2 154 H (83-108) mmHg ABG HCO3 20 L (21-25) mmol/L ABG Total CO2 (19-24) mmol/L ABG O2 Saturation 99.9 H (94-97) % ABG Hematocrit (34.0-46.0) % ABG Potassium (3.4-4.5) mmol/L ABG Glucose (75-99) mg/dL ABG Lactic Acid (0.5-1.6) mmol/L Hemoglobin (13.0-17.5) gm/dL Sodium (137-145) mmol/L Chloride (98-107) mmol/L BUN (9-20) mg/dL Creatinine (0.66-1.25) mg/dL Glucose (74-99) mg/dL POC Glucose (mg/dL) 141 H 165 H (75-99) mg/dL Calcium (8.4-10.2) mg/dL Total Protein (6.3-8.2) g/dL Albumin (3.5-5.0) g/dL Arterial Blood Potassium (3.4-4.5) mmol/L Arterial Blood Glucose (75-99) mg/dL Crossmatch 08/20/20 08/20/20 08/20/20 Range/Units 16:56 17:12 17:59 RBC 2.15 L (4.30-5.90) m/uL Hgb 6.5 L* (13.0-17.5) gm/dL Hct 20.3 L (39.0-53.0) % RDW 15.9 H (11.5-15.5) % Lymphocytes # 0.6 L (1.0-4.8) k/uL ABG pH (7.35-7.45) ABG pCO2 (35-45) mmHg ABG pO2 (83-108) mmHg ABG HCO3 (21-25) mmol/L ABG Total CO2 (19-24) mmol/L ABG O2 Saturation (94-97) % ABG Hematocrit (34.0-46.0) % ABG Potassium (3.4-4.5) mmol/L ABG Glucose (75-99) mg/dL ABG Lactic Acid (0.5-1.6) mmol/L Hemoglobin (13.0-17.5) gm/dL Sodium (137-145) mmol/L Chloride (98-107) mmol/L BUN (9-20) mg/dL Creatinine (0.66-1.25) mg/dL Glucose (74-99) mg/dL POC Glucose (mg/dL) 179 H 154 H (75-99) mg/dL Calcium (8.4-10.2) mg/dL Total Protein (6.3-8.2) g/dL Albumin (3.5-5.0) g/dL Arterial Blood Potassium (3.4-4.5) mmol/L Arterial Blood Glucose (75-99) mg/dL Crossmatch 08/20/20 08/20/20 08/20/20 Range/Units 19:08 20:07 21:01 RBC (4.30-5.90) m/uL Hgb (13.0-17.5) gm/dL Hct (39.0-53.0) % RDW (11.5-15.5) % Lymphocytes # (1.0-4.8) k/uL ABG pH (7.35-7.45) ABG pCO2 (35-45) mmHg ABG pO2 (83-108) mmHg ABG HCO3 (21-25) mmol/L ABG Total CO2 (19-24) mmol/L ABG O2 Saturation (94-97) % ABG Hematocrit (34.0-46.0) % ABG Potassium (3.4-4.5) mmol/L ABG Glucose (75-99) mg/dL ABG Lactic Acid (0.5-1.6) mmol/L Hemoglobin (13.0-17.5) gm/dL Sodium (137-145) mmol/L Chloride (98-107) mmol/L BUN (9-20) mg/dL Creatinine (0.66-1.25) mg/dL Glucose (74-99) mg/dL POC Glucose (mg/dL) 141 H 104 H 120 H (75-99) mg/dL Calcium (8.4-10.2) mg/dL Total Protein (6.3-8.2) g/dL Albumin (3.5-5.0) g/dL Arterial Blood Potassium (3.4-4.5) mmol/L Arterial Blood Glucose (75-99) mg/dL Crossmatch 08/20/20 08/20/20 08/20/20 Range/Units 22:04 22:55 23:37 RBC (4.30-5.90) m/uL Hgb (13.0-17.5) gm/dL Hct (39.0-53.0) % RDW (11.5-15.5) % Lymphocytes # (1.0-4.8) k/uL ABG pH (7.35-7.45) ABG pCO2 (35-45) mmHg ABG pO2 (83-108) mmHg ABG HCO3 (21-25) mmol/L ABG Total CO2 (19-24) mmol/L ABG O2 Saturation (94-97) % ABG Hematocrit (34.0-46.0) % ABG Potassium (3.4-4.5) mmol/L ABG Glucose (75-99) mg/dL ABG Lactic Acid (0.5-1.6) mmol/L Hemoglobin (13.0-17.5) gm/dL Sodium (137-145) mmol/L Chloride (98-107) mmol/L BUN (9-20) mg/dL Creatinine (0.66-1.25) mg/dL Glucose (74-99) mg/dL POC Glucose (mg/dL) 131 H 140 H 148 H (75-99) mg/dL Calcium (8.4-10.2) mg/dL Total Protein (6.3-8.2) g/dL Albumin (3.5-5.0) g/dL Arterial Blood Potassium (3.4-4.5) mmol/L Arterial Blood Glucose (75-99) mg/dL Crossmatch 08/21/20 08/21/20 08/21/20 Range/Units 00:57 02:02 02:54 RBC (4.30-5.90) m/uL Hgb (13.0-17.5) gm/dL Hct (39.0-53.0) % RDW (11.5-15.5) % Lymphocytes # (1.0-4.8) k/uL ABG pH (7.35-7.45) ABG pCO2 (35-45) mmHg ABG pO2 (83-108) mmHg ABG HCO3 (21-25) mmol/L ABG Total CO2 (19-24) mmol/L ABG O2 Saturation (94-97) % ABG Hematocrit (34.0-46.0) % ABG Potassium (3.4-4.5) mmol/L ABG Glucose (75-99) mg/dL ABG Lactic Acid (0.5-1.6) mmol/L Hemoglobin (13.0-17.5) gm/dL Sodium (137-145) mmol/L Chloride (98-107) mmol/L BUN (9-20) mg/dL Creatinine (0.66-1.25) mg/dL Glucose (74-99) mg/dL POC Glucose (mg/dL) 127 H 108 H 127 H (75-99) mg/dL Calcium (8.4-10.2) mg/dL Total Protein (6.3-8.2) g/dL Albumin (3.5-5.0) g/dL Arterial Blood Potassium (3.4-4.5) mmol/L Arterial Blood Glucose (75-99) mg/dL Crossmatch 08/21/20 08/21/20 08/21/20 Range/Units 04:10 04:10 04:10 RBC 2.04 L (4.30-5.90) m/uL Hgb 6.5 L* (13.0-17.5) gm/dL Hct 19.4 L* (39.0-53.0) % RDW 15.6 H (11.5-15.5) % Lymphocytes # 0.9 L (1.0-4.8) k/uL ABG pH (7.35-7.45) ABG pCO2 (35-45) mmHg ABG pO2 (83-108) mmHg ABG HCO3 (21-25) mmol/L ABG Total CO2 (19-24) mmol/L ABG O2 Saturation (94-97) % ABG Hematocrit (34.0-46.0) % ABG Potassium (3.4-4.5) mmol/L ABG Glucose (75-99) mg/dL ABG Lactic Acid (0.5-1.6) mmol/L Hemoglobin (13.0-17.5) gm/dL Sodium 132 L (137-145) mmol/L Chloride (98-107) mmol/L BUN 25 H (9-20) mg/dL Creatinine 2.09 H (0.66-1.25) mg/dL Glucose 108 H (74-99) mg/dL POC Glucose (mg/dL) 125 H (75-99) mg/dL Calcium 7.6 L (8.4-10.2) mg/dL Total Protein 4.5 L (6.3-8.2) g/dL Albumin 2.5 L (3.5-5.0) g/dL Arterial Blood Potassium (3.4-4.5) mmol/L Arterial Blood Glucose (75-99) mg/dL Crossmatch 08/21/20 08/21/20 08/21/20 Range/Units 04:58 06:22 06:54 RBC (4.30-5.90) m/uL Hgb (13.0-17.5) gm/dL Hct (39.0-53.0) % RDW (11.5-15.5) % Lymphocytes # (1.0-4.8) k/uL ABG pH (7.35-7.45) ABG pCO2 (35-45) mmHg ABG pO2 (83-108) mmHg ABG HCO3 (21-25) mmol/L ABG Total CO2 (19-24) mmol/L ABG O2 Saturation (94-97) % ABG Hematocrit (34.0-46.0) % ABG Potassium (3.4-4.5) mmol/L ABG Glucose (75-99) mg/dL ABG Lactic Acid (0.5-1.6) mmol/L Hemoglobin (13.0-17.5) gm/dL Sodium (137-145) mmol/L Chloride (98-107) mmol/L BUN (9-20) mg/dL Creatinine (0.66-1.25) mg/dL Glucose (74-99) mg/dL POC Glucose (mg/dL) 101 H 136 H 129 H (75-99) mg/dL Calcium (8.4-10.2) mg/dL Total Protein (6.3-8.2) g/dL Albumin (3.5-5.0) g/dL Arterial Blood Potassium (3.4-4.5) mmol/L Arterial Blood Glucose (75-99) mg/dL Crossmatch 08/21/20 Range/Units 08:10 RBC (4.30-5.90) m/uL Hgb (13.0-17.5) gm/dL Hct (39.0-53.0) % RDW (11.5-15.5) % Lymphocytes # (1.0-4.8) k/uL ABG pH (7.35-7.45) ABG pCO2 (35-45) mmHg ABG pO2 (83-108) mmHg ABG HCO3 (21-25) mmol/L ABG Total CO2 (19-24) mmol/L ABG O2 Saturation (94-97) % ABG Hematocrit (34.0-46.0) % ABG Potassium (3.4-4.5) mmol/L ABG Glucose (75-99) mg/dL ABG Lactic Acid (0.5-1.6) mmol/L Hemoglobin (13.0-17.5) gm/dL Sodium (137-145) mmol/L Chloride (98-107) mmol/L BUN (9-20) mg/dL Creatinine (0.66-1.25) mg/dL Glucose (74-99) mg/dL POC Glucose (mg/dL) 130 H (75-99) mg/dL Calcium (8.4-10.2) mg/dL Total Protein (6.3-8.2) g/dL Albumin (3.5-5.0) g/dL Arterial Blood Potassium (3.4-4.5) mmol/L Arterial Blood Glucose (75-99) mg/dL Crossmatch Assessment and Plan Plan: Assessment: 1. Acute kidney injury secondary to ATN post CABG. Creatinine fairly stable at 2.09 this morning. 2. Chronic kidney disease stage IIIB secondary to diabetic kidney disease. Creatinine 1.81 as of 02/01/2020. 3. Coronary artery disease status post cardiac catheterization on August 13. Has triple-vessel disease. Status post CABG 08/20/2020. 4. Metabolic acidosis secondary to acute kidney injury and IV fluids. Improved. Maintained on oral bicarbonate. 5. Anemia of chronic kidney disease maintained on Aranesp. Mild iron deficiency noted - status post IV iron August 18. Also received blood tr ansfusion this admission. Hemoglobin 6.5 this morning. 6. Hypertension with chronic kidney disease. Stable. 7. Hypocalcemia secondary to acute kidney injury. Status post placement. Corrected calcium normal. 8. Hypomagnesemia from poor intake. status post replacement. Resolved. 9. Mild volume overload. Plan: Lasix 20 mg IV once today. Encouraged oral intake. Continue to monitor renal function and urine output. Avoid nephrotoxins. Monitor hemoglobin and transfuse as needed per CTS.
[2020-08-21] MEDS ORDERED: FUROSEMIDE 10 MG/ML 2 ML VIAL IV ONE (10:20)
[2020-08-21 11:23] LABS: Glucose,Whole Blood 185 mg/dL (75-99)
--- NOTE | 2020-08-21 11:42 | P.PN ---
Subjective Progress Note Date: 08/21/20 HISTORY OF PRESENT ILLNESS 59-year-old male one of Dr. Roach's patient with past medical history of diabe zach on insulin pump, history of hypertension, hyperlipidemia, chronic neuropathy who is also noted to have coronary artery disease post PCI and stent placement back in 2004 was also has been having chronic kidney disease taste for. Patient presented to the emergency department today 08/13/2020 complaining of body ache all over his body along with numbness with worsening shortness of breath with n onspecific chest tightness or pressure and claims his neuropathy has been a lot worse he could not feel his feet and hands. His blood sugar has been slightly bit elevated as well. 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 08/14: Patient evaluated this morning, resting in bed, in no acute distress. Patient is currently undergoing testing for possible coronary artery bypass s urgery with the cardiothoracic team. Patient had carotid ultrasound that showed severe right ICA stenosis and moderate left ICA stenosis. Patient became very argumentative and agitated this morning after discussion regarding his insulin pump. 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 If patient and family are agreeable to this and patient has a working insulin pump with the refill of insulin, patient may use his pump to manage his own sugar. 08/15: Patient remained ICU, had severe stenosis of the right carotid artery might need carotid endarterectomy, in the meanwhile with the use of dye and his kidney function currently is not able to go for CT of the neck will be waiting until Tuesday. Cardiothoracic surgery indicated that he need multi-vessel CABG and the same time might require carotid endarterectomy the same time such an arrangement can be probably done early next week. He seen nephrology kidney function slightly better today. 08/16 patient remains in ICU. Underwent CT of the chest today with CTA neck pending. Patient denies any symptoms of chest pain or shortness of breath. Vitals are stable with temp of 98.5 pulse 85 respiratory rate 13 blood pressure 160/104. Blood work suggesting hemoglobin stable at 7.1, sodium 135 creatinine 2.13 BUN 35 CO2 21 chloride 114 blood sugar 69 this morning. Patient continues to use his own insulin pump . Patient agrees on removing the insulin pump close to the surgery. 08/17 patient examined bedside on the floor. Denies any chest pain or shortness of breath. Denies any dizziness or change in mental status. Vitals suggests a temp of 97.8 pulse 85 respiratory rate 18 blood pressure 151/70. assessed sodium 135 chloride 114 CO2 of 21 creatinine improved to 1.93. BUN improved to 28. CT neck with contrast to be completed today. Heparin drip discontinued. Continue IV fluids post CT with contrast 48 hours to prevent contrast-induced nephropathy 08/18: Patient states he is feeling better today. He has been cooperative. CAT scan angiogram of the neck revealed significant stenosis of the proximal right internal carotid artery. Plan to add consult with vascular surgery for evaluation. He denies having any chest pain or shortness of breath. No lightheadedness or dizziness. Nephrology is soft IV fluids. IV iron has been ordered 08/19: Yesterday afternoon, patient underwent bilateral carotid angiography with Dr. Rivera which found 99% right ICA stenosis and 70% left. Vascular surgery is on consult. Cardiothoracic surgery is planning on CABG for tomorrow. There is no plan for carotid artery intervention during this hospitalization. The patient denies any chest pain or shortness of breath. manager monitoring is sinus rhythm. Repeat blood work reveals hemoglobin of 6.7 potassium 3.4. Calcium 6.2. Magnesium 1.2. Cardiothoracic surgery has addressed electrolyte replacements. One unit of packed RBCs for transfusion ordered. 08/20: Patient has gone for CABG. 08/21: Patient is status post off-pump CABG 3 with REID to LAD, saphenous vein grafts to first obtuse marginal and right coronary arteries, exclusion of left atrial appendage with 35 mm AtriCure clip. Patient was successfully extubated yesterday afternoon. He has a mediastinal, left and right pleural chest tubes in place. He is seen this morning intensive care unit, sitting up in a recliner. He has eating his breakfast with no nausea vomiting. He states his chest as feeling sore. He is using incentive spirometry of reaching 1000 miles. Repeat chest x-ray reveals minimal bilateral apical pneumothoraces. Bibasilar infiltrates. Hemoglobin is 6.5 and patient is being transfused 1 unit packed RBCs. Blood sugar running between 101 and 136 and patient states he has a new sensor for his insulin pump for today. He has been afebrile, heart rate 85, blood pressure 130/53. manager monitoring is a sinus rhythm. Other blood work reveals WBC 7.2, platelet count 161. Sodium 131, potassium 4.5, chloride 107, CO2 22, BUN 25 and creatinine 2.09. Patient was ordered for 1 dose of IV Lasix 20 mg today. REVIEW OF SYSTEMS CONSTITUTIONAL: Well-developed no acute respiratory distress. No fever. No chills. EYES: No icterus sclerae, no conjunctivitis. EARS, NOSE, MOUTH, THROAT, and FACE: No sore throat, lymphadenopathy, carotid bruits or deformity. RESPIRATORY: No SOB cough or wheezes. CARDIOVASCULAR: Reports chest discomfort, Palpitation, PND, Orthopnea, or angina. GASTROINTESTINAL: No Abd pain, Nausea or vomiting, no Diarrhea or constipation, No GI Bleed, no distention or masses. No loss of appetite. GENITOURINARY: Negative for Hematuria or UTI, no kidney stones. INTEGUMENT/BREAST: Negative for any muscular injury with mild osteoarthritis.. HEMATOLOGIC/LYMPHATIC: Negative for bleed or purpura. MUSCULOSKELTAL: Negative for Myalgia or arthralgia. NEURLOGICAL: No LOC, Sz or syncope, blurred vision dizziness or abnormality.. BEHAVIORAL/PSYCH: Negative. ENDOCRINE: Negative. PHYSICAL EXAMINATION Gen: This is a 59-year-old male. He is resting in chair and appears to be comfortable. HEENT: Head is atraumatic, normocephalic. Pupils equal, round. Sclerae is anicteric. NECK: Supple. No JVD. No lymphadenopathy. No thyromegaly. LUNGS: Clear to auscultation. No wheezes or rhonchi. No intercostal retractions. Chest tubes in place. HEART: Regular rate and rhythm. No murmur. ABDOMEN: Soft. Bowel sounds are present. No masses. No tenderness. Ramirez catheter draining clear turner urine. EXTREMITIES: No pedal edema. No calf tenderness. NEUROLOGICAL: Patient is awake, alert and oriented x3. Cranial nerves 2 through 12 are grossly intact. ASSESSMENT AND PLAN 1. Acute non-ST elevated myocardial infarction. Patient is status post heart catheterization revealing severe coronary artery disease. Status post off-pump CABG 3 with REID to LAD, saphenous vein grafts to first obtuse marginal and right coronary arteries, exclusion of left atrial appendage with 35 mm AtriCure clip. Continue current management per cardiothoracic team. 2. Acute kidney injury with stage IV chronic kidney disease. Nephrology consult appreciated. IV fluids discontinued. IV Lasix 1 dose today. 3. Severe carotid artery stenosis, right. Bilateral carotid angiography revealed 99% right internal carotid artery stenosis and 70% left internal carotid artery stenosis.. Vascular surgery consult appreciated and signed off. 4. Diabetes mellitus type 1, on insulin pump. 5. Hypertension. Continue Lopressor. 6. Hyperlipidemia. Continue atorvastatin 80 mg daily. 7. Chronic advanced diabetic peripheral neuropathy: Patient should be on at least a starter of neuropathy medication like gabapentin or Lyrica something highly suggested to be done as an outpatient. 8. Anemia of chronic kidney disease. Continue Aranesp, ferrous sulfate, status post Ferrlecit infusion. 9. Chronic tobacco use and dependence. Smoking cessation. 10. Peripheral vascular occlusive disease. 11. History of coronary artery disease with previous stent placement in the proximal and mid RCA in 2004. Continue as in #1. 12. DVT prophylaxis. 13. GI prophylaxis. Protonix. Discharge plan: Most likely home with homecare. Impression and plan of care have been directed as dictated by the signing physician. Cecille Marcum nurse practitioner acting as scribe for signing physician. Objective - Vital Signs Vital signs: Vital Signs Temp 37.2 F L 08/21/20 08:00 Pulse 85 08/21/20 08:11 Resp 23 08/21/20 08:00 BP 85/47 08/20/20 14:00 Pulse Ox 98 08/21/20 08:00 Intake & Output 08/20/20 08/21/20 08/21/20 18:59 06:59 18:59 Intake Total 479.111 9335.218 135.0 Output Total 1640 1545 170 Balance -718.578 -190.782 -35.0 Weight 62.233 kg Intake: IV 865.0 851.0 135.0 Albumin Human 5% 250 ml 500 In Empty Bag 1 bag @ 250 mls/hr IVPB Q1HR PRN Rx#: [id number] CO/CI 200 20 Lactated Ringers 1,000 ml 300 600 100 @ 20 mls/hr IV .Q24H JACKI Rx#:[id number] Nitroglycerin-D5w Pmx 50 9.0 18.0 3.0 mg In Dextrose/Water 1 250ml.bag @ 5 MCG/MIN 1.5 mls/hr IV .Q24H JACKI Rx#: [id number] Pressure bag 0.9 33 12 Intake, IV Titration 56.422 263.218 Amount ACETAMINOPHEN IV (For NPO 100 ) 1,000 mg In Empty Bag 1 bag @ 400 mls/hr IVPB Q6HR JACKI Rx#:[id number] Clevidipine Butyrate 25 7.401 mg In Empty Bag 1 bag @ 1 MG/HR 2 mls/hr IV .Q24H JACKI Rx#:[id number] DOPamine DRIP 800 mg In 6.837 Dextrose/Water 1 250ml. bag @ 2 MCG/KG/MIN 2.344 mls/hr IV .Q24H JACKI Rx#: [id number] Insulin Regular 100 unit 12.230 5.817 In Sodium Chloride 0.9% 100 ml @ Per Protocol IV .Q0M JACKI Rx#:[id number] Insulin Regular 100 unit 0.417 In Sodium Chloride 0.9% 100 ml @ Titrate IV .Q0M ONE Rx#:[id number] Magnesium Sulfate-D5w Pmx 100 1 gm In Dextrose/Water 1 100ml.bag @ 100 mls/hr IVPB Q1H JACKI Rx#: [id number] ceFAZolin 2 gm In Sodium 50 Chloride 0.9% 50 ml @ 100 mls/hr IVPB Q8HR JACKI Rx# :[id number] propofoL 1,000 mg In 36.938 Empty Bag 1 bag @ Titrate IV .Q0M JACKI Rx#: [id number] Oral 240 Output: Chest Tube Drainage 460 730 100 Bilateral Anterior Chest 300 560 60 Mediastinal 160 170 40 Urine 680 815 70 Estimated Blood Loss 500 Other: Voiding Method Indwelling Catheter Indwelling Catheter # Voids 1 ABP, PAP, CO, CI - Last Documented Arterial Blood Pressure 130/53 Pulmonary Artery Pressure 28/11 Cardiac Output 7.1 Cardiac Index 4.1 - Labs CBC & Chem 7: 08/21/20 04:10 08/21/20 04:10 Labs: Abnormal Lab Results - Last 24 Hours (Table) 08/18/20 08/20/20 08/20/20 Range/Units 06:43 08:25 10:03 RBC (4.30-5.90) m/uL Hgb (13.0-17.5) gm/dL Hct (39.0-53.0) % RDW (11.5-15.5) % Lymphocytes # (1.0-4.8) k/uL ABG pH 7.25 L (7.35-7.45) ABG pCO2 34 L 51 H (35-45) mmHg ABG pO2 327 H 276 H (83-108) mmHg ABG HCO3 (21-25) mmol/L ABG Total CO2 (19-24) mmol/L ABG O2 Saturation 100.0 H 99.8 H (94-97) % ABG Hematocrit 25 L 23 L (34.0-46.0) % ABG Potassium 4.8 H (3.4-4.5) mmol/L ABG Glucose 153 H 230 H (75-99) mg/dL ABG Lactic Acid 0.4 L (0.5-1.6) mmol/L Hemoglobin 8.1 L 7.6 L (13.0-17.5) gm/dL Sodium (137-145) mmol/L Chloride (98-107) mmol/L BUN (9-20) mg/dL Creatinine (0.66-1.25) mg/dL Glucose (74-99) mg/dL POC Glucose (mg/dL) (75-99) mg/dL Calcium (8.4-10.2) mg/dL Total Protein (6.3-8.2) g/dL Albumin (3.5-5.0) g/dL Arterial Blood Potassium 4.8 H (3.4-4.5) mmol/L Arterial Blood Glucose 153 H 230 H (75-99) mg/dL Crossmatch See Detail 08/20/20 08/20/20 08/20/20 Range/Units 10:13 10:37 11:04 RBC (4.30-5.90) m/uL Hgb (13.0-17.5) gm/dL Hct (39.0-53.0) % RDW (11.5-15.5) % Lymphocytes # (1.0-4.8) k/uL ABG pH 7.33 L (7.35-7.45) ABG pCO2 48 H (35-45) mmHg ABG pO2 249 H 228 H 234 H (83-108) mmHg ABG HCO3 (21-25) mmol/L ABG Total CO2 26 H 25 H (19-24) mmol/L ABG O2 Saturation 99.8 H 99.9 H 99.8 H (94-97) % ABG Hematocrit 23 L 22 L 21 L (34.0-46.0) % ABG Potassium (3.4-4.5) mmol/L ABG Glucose 227 H 198 H 172 H (75-99) mg/dL ABG Lactic Acid (0.5-1.6) mmol/L Hemoglobin 7.5 L 7.2 L 6.9 L* (13.0-17.5) gm/dL Sodium (137-145) mmol/L Chloride (98-107) mmol/L BUN (9-20) mg/dL Creatinine (0.66-1.25) mg/dL Glucose (74-99) mg/dL POC Glucose (mg/dL) (75-99) mg/dL Calcium (8.4-10.2) mg/dL Total Protein (6.3-8.2) g/dL Albumin (3.5-5.0) g/dL Arterial Blood Potassium (3.4-4.5) mmol/L Arterial Blood Glucose 227 H 198 H 172 H (75-99) mg/dL Crossmatch 08/20/20 08/20/20 08/20/20 Range/Units 11:34 12:45 12:45 RBC 2.27 L (4.30-5.90) m/uL Hgb 7.5 L D (13.0-17.5) gm/dL Hct 21.5 L (39.0-53.0) % RDW (11.5-15.5) % Lymphocytes # (1.0-4.8) k/uL ABG pH (7.35-7.45) ABG pCO2 (35-45) mmHg ABG pO2 242 H (83-108) mmHg ABG HCO3 (21-25) mmol/L ABG Total CO2 (19-24) mmol/L ABG O2 Saturation 100.0 H (94-97) % ABG Hematocrit 22 L (34.0-46.0) % ABG Potassium (3.4-4.5) mmol/L ABG Glucose 138 H (75-99) mg/dL ABG Lactic Acid 1.7 H (0.5-1.6) mmol/L Hemoglobin 7.2 L (13.0-17.5) gm/dL Sodium (137-145) mmol/L Chloride 112 H (98-107) mmol/L BUN 24 H (9-20) mg/dL Creatinine 1.96 H (0.66-1.25) mg/dL Glucose (74-99) mg/dL POC Glucose (mg/dL) (75-99) mg/dL Calcium 7.6 L (8.4-10.2) mg/dL Total Protein 4.8 L (6.3-8.2) g/dL Albumin 2.7 L (3.5-5.0) g/dL Arterial Blood Potassium (3.4-4.5) mmol/L Arterial Blood Glucose 138 H (75-99) mg/dL Crossmatch 08/20/20 08/20/20 08/20/20 Range/Units 13:45 13:54 14:18 RBC (4.30-5.90) m/uL Hgb (13.0-17.5) gm/dL Hct (39.0-53.0) % RDW (11.5-15.5) % Lymphocytes # (1.0-4.8) k/uL ABG pH 7.31 L (7.35-7.45) ABG pCO2 47 H (35-45) mmHg ABG pO2 >400 H (83-108) mmHg ABG HCO3 (21-25) mmol/L ABG Total CO2 25 H (19-24) mmol/L ABG O2 Saturation 100.0 H (94-97) % ABG Hematocrit (34.0-46.0) % ABG Potassium (3.4-4.5) mmol/L ABG Glucose (75-99) mg/dL ABG Lactic Acid (0.5-1.6) mmol/L Hemoglobin (13.0-17.5) gm/dL Sodium (137-145) mmol/L Chloride (98-107) mmol/L BUN (9-20) mg/dL Creatinine (0.66-1.25) mg/dL Glucose (74-99) mg/dL POC Glucose (mg/dL) 63 L 110 H (75-99) mg/dL Calcium (8.4-10.2) mg/dL Total Protein (6.3-8.2) g/dL Albumin (3.5-5.0) g/dL Arterial Blood Potassium (3.4-4.5) mmol/L Arterial Blood Glucose (75-99) mg/dL Crossmatch 08/20/20 08/20/20 08/20/20 Range/Units 15:17 16:09 16:12 RBC (4.30-5.90) m/uL Hgb (13.0-17.5) gm/dL Hct (39.0-53.0) % RDW (11.5-15.5) % Lymphocytes # (1.0-4.8) k/uL ABG pH 7.32 L (7.35-7.45) ABG pCO2 (35-45) mmHg ABG pO2 154 H (83-108) mmHg ABG HCO3 20 L (21-25) mmol/L ABG Total CO2 (19-24) mmol/L ABG O2 Saturation 99.9 H (94-97) % ABG Hematocrit (34.0-46.0) % ABG Potassium (3.4-4.5) mmol/L ABG Glucose (75-99) mg/dL ABG Lactic Acid (0.5-1.6) mmol/L Hemoglobin (13.0-17.5) gm/dL Sodium (137-145) mmol/L Chloride (98-107) mmol/L BUN (9-20) mg/dL Creatinine (0.66-1.25) mg/dL Glucose (74-99) mg/dL POC Glucose (mg/dL) 141 H 165 H (75-99) mg/dL Calcium (8.4-10.2) mg/dL Total Protein (6.3-8.2) g/dL Albumin (3.5-5.0) g/dL Arterial Blood Potassium (3.4-4.5) mmol/L Arterial Blood Glucose (75-99) mg/dL Crossmatch 08/20/20 08/20/20 08/20/20 Range/Units 16:56 17:12 17:59 RBC 2.15 L (4.30-5.90) m/uL Hgb 6.5 L* (13.0-17.5) gm/dL Hct 20.3 L (39.0-53.0) % RDW 15.9 H (11.5-15.5) % Lymphocytes # 0.6 L (1.0-4.8) k/uL ABG pH (7.35-7.45) ABG pCO2 (35-45) mmHg ABG pO2 (83-108) mmHg ABG HCO3 (21-25) mmol/L ABG Total CO2 (19-24) mmol/L ABG O2 Saturation (94-97) % ABG Hematocrit (34.0-46.0) % ABG Potassium (3.4-4.5) mmol/L ABG Glucose (75-99) mg/dL ABG Lactic Acid (0.5-1.6) mmol/L Hemoglobin (13.0-17.5) gm/dL Sodium (137-145) mmol/L Chloride (98-107) mmol/L BUN (9-20) mg/dL Creatinine (0.66-1.25) mg/dL Glucose (74-99) mg/dL POC Glucose (mg/dL) 179 H 154 H (75-99) mg/dL Calcium (8.4-10.2) mg/dL Total Protein (6.3-8.2) g/dL Albumin (3.5-5.0) g/dL Arterial Blood Potassium (3.4-4.5) mmol/L Arterial Blood Glucose (75-99) mg/dL Crossmatch 08/20/20 08/20/20 08/20/20 Range/Units 19:08 20:07 21:01 RBC (4.30-5.90) m/uL Hgb (13.0-17.5) gm/dL Hct (39.0-53.0) % RDW (11.5-15.5) % Lymphocytes # (1.0-4.8) k/uL ABG pH (7.35-7.45) ABG pCO2 (35-45) mmHg ABG pO2 (83-108) mmHg ABG HCO3 (21-25) mmol/L ABG Total CO2 (19-24) mmol/L ABG O2 Saturation (94-97) % ABG Hematocrit (34.0-46.0) % ABG Potassium (3.4-4.5) mmol/L ABG Glucose (75-99) mg/dL ABG Lactic Acid (0.5-1.6) mmol/L Hemoglobin (13.0-17.5) gm/dL Sodium (137-145) mmol/L Chloride (98-107) mmol/L BUN (9-20) mg/dL Creatinine (0.66-1.25) mg/dL Glucose (74-99) mg/dL POC Glucose (mg/dL) 141 H 104 H 120 H (75-99) mg/dL Calcium (8.4-10.2) mg/dL Total Protein (6.3-8.2) g/dL Albumin (3.5-5.0) g/dL Arterial Blood Potassium (3.4-4.5) mmol/L Arterial Blood Glucose (75-99) mg/dL Crossmatch 08/20/20 08/20/20 08/20/20 Range/Units 22:04 22:55 23:37 RBC (4.30-5.90) m/uL Hgb (13.0-17.5) gm/dL Hct (39.0-53.0) % RDW (11.5-15.5) % Lymphocytes # (1.0-4.8) k/uL ABG pH (7.35-7.45) ABG pCO2 (35-45) mmHg ABG pO2 (83-108) mmHg ABG HCO3 (21-25) mmol/L ABG Total CO2 (19-24) mmol/L ABG O2 Saturation (94-97) % ABG Hematocrit (34.0-46.0) % ABG Potassium (3.4-4.5) mmol/L ABG Glucose (75-99) mg/dL ABG Lactic Acid (0.5-1.6) mmol/L Hemoglobin (13.0-17.5) gm/dL Sodium (137-145) mmol/L Chloride (98-107) mmol/L BUN (9-20) mg/dL Creatinine (0.66-1.25) mg/dL Glucose (74-99) mg/dL POC Glucose (mg/dL) 131 H 140 H 148 H (75-99) mg/dL Calcium (8.4-10.2) mg/dL Total Protein (6.3-8.2) g/dL Albumin (3.5-5.0) g/dL Arterial Blood Potassium (3.4-4.5) mmol/L Arterial Blood Glucose (75-99) mg/dL Crossmatch 08/21/20 08/21/20 08/21/20 Range/Units 00:57 02:02 02:54 RBC (4.30-5.90) m/uL Hgb (13.0-17.5) gm/dL Hct (39.0-53.0) % RDW (11.5-15.5) % Lymphocytes # (1.0-4.8) k/uL ABG pH (7.35-7.45) ABG pCO2 (35-45) mmHg ABG pO2 (83-108) mmHg ABG HCO3 (21-25) mmol/L ABG Total CO2 (19-24) mmol/L ABG O2 Saturation (94-97) % ABG Hematocrit (34.0-46.0) % ABG Potassium (3.4-4.5) mmol/L ABG Glucose (75-99) mg/dL ABG Lactic Acid (0.5-1.6) mmol/L Hemoglobin (13.0-17.5) gm/dL Sodium (137-145) mmol/L Chloride (98-107) mmol/L BUN (9-20) mg/dL Creatinine (0.66-1.25) mg/dL Glucose (74-99) mg/dL POC Glucose (mg/dL) 127 H 108 H 127 H (75-99) mg/dL Calcium (8.4-10.2) mg/dL Total Protein (6.3-8.2) g/dL Albumin (3.5-5.0) g/dL Arterial Blood Potassium (3.4-4.5) mmol/L Arterial Blood Glucose (75-99) mg/dL Crossmatch 08/21/20 08/21/20 08/21/20 Range/Units 04:10 04:10 04:10 RBC 2.04 L (4.30-5.90) m/uL Hgb 6.5 L* (13.0-17.5) gm/dL Hct 19.4 L* (39.0-53.0) % RDW 15.6 H (11.5-15.5) % Lymphocytes # 0.9 L (1.0-4.8) k/uL ABG pH (7.35-7.45) ABG pCO2 (35-45) mmHg ABG pO2 (83-108) mmHg ABG HCO3 (21-25) mmol/L ABG Total CO2 (19-24) mmol/L ABG O2 Saturation (94-97) % ABG Hematocrit (34.0-46.0) % ABG Potassium (3.4-4.5) mmol/L ABG Glucose (75-99) mg/dL ABG Lactic Acid (0.5-1.6) mmol/L Hemoglobin (13.0-17.5) gm/dL Sodium 132 L (137-145) mmol/L Chloride (98-107) mmol/L BUN 25 H (9-20) mg/dL Creatinine 2.09 H (0.66-1.25) mg/dL Glucose 108 H (74-99) mg/dL POC Glucose (mg/dL) 125 H (75-99) mg/dL Calcium 7.6 L (8.4-10.2) mg/dL Total Protein 4.5 L (6.3-8.2) g/dL Albumin 2.5 L (3.5-5.0) g/dL Arterial Blood Potassium (3.4-4.5) mmol/L Arterial Blood Glucose (75-99) mg/dL Crossmatch 08/21/20 08/21/20 08/21/20 Range/Units 04:58 06:22 06:54 RBC (4.30-5.90) m/uL Hgb (13.0-17.5) gm/dL Hct (39.0-53.0) % RDW (11.5-15.5) % Lymphocytes # (1.0-4.8) k/uL ABG pH (7.35-7.45) ABG pCO2 (35-45) mmHg ABG pO2 (83-108) mmHg ABG HCO3 (21-25) mmol/L ABG Total CO2 (19-24) mmol/L ABG O2 Saturation (94-97) % ABG Hematocrit (34.0-46.0) % ABG Potassium (3.4-4.5) mmol/L ABG Glucose (75-99) mg/dL ABG Lactic Acid (0.5-1.6) mmol/L Hemoglobin (13.0-17.5) gm/dL Sodium (137-145) mmol/L Chloride (98-107) mmol/L BUN (9-20) mg/dL Creatinine (0.66-1.25) mg/dL Glucose (74-99) mg/dL POC Glucose (mg/dL) 101 H 136 H 129 H (75-99) mg/dL Calcium (8.4-10.2) mg/dL Total Protein (6.3-8.2) g/dL Albumin (3.5-5.0) g/dL Arterial Blood Potassium (3.4-4.5) mmol/L Arterial Blood Glucose (75-99) mg/dL Crossmatch 08/21/20 Range/Units 08:10 RBC (4.30-5.90) m/uL Hgb (13.0-17.5) gm/dL Hct (39.0-53.0) % RDW (11.5-15.5) % Lymphocytes # (1.0-4.8) k/uL ABG pH (7.35-7.45) ABG pCO2 (35-45) mmHg ABG pO2 (83-108) mmHg ABG HCO3 (21-25) mmol/L ABG Total CO2 (19-24) mmol/L ABG O2 Saturation (94-97) % ABG Hematocrit (34.0-46.0) % ABG Potassium (3.4-4.5) mmol/L ABG Glucose (75-99) mg/dL ABG Lactic Acid (0.5-1.6) mmol/L Hemoglobin (13.0-17.5) gm/dL Sodium (137-145) mmol/L Chloride (98-107) mmol/L BUN (9-20) mg/dL Creatinine (0.66-1.25) mg/dL Glucose (74-99) mg/dL POC Glucose (mg/dL) 130 H (75-99) mg/dL Calcium (8.4-10.2) mg/dL Total Protein (6.3-8.2) g/dL Albumin (3.5-5.0) g/dL Arterial Blood Potassium (3.4-4.5) mmol/L Arterial Blood Glucose (75-99) mg/dL Crossmatch
[2020-08-21] MEDS ORDERED: DARBEPOETIN ALFA 40 MCG/0.4 ML SYRINGE SQ SCH (12:00)
[2020-08-21 12:43] LABS: Glucose,Whole Blood 147 mg/dL (75-99)
--- NOTE | 2020-08-21 12:56 | P.PN ---
Subjective Progress Note Date: 08/21/20 Principal diagnosis: Acute non-ST elevation myocardial infarction and severe coronary artery disease Patient was reevaluated today on 08/18/2020, patient is waiting for final decision regarding his surgery. He was found to have significant carotid artery disease, and decision is yet to be made regarding his carotid surgery and CABG. From the pulmonary perspective, patient was seen by us, and we'll clear him for surgery. Patient has no active pulmonary symptoms whatsoever. Labs today showed hemoglobin of 7.3 WBC count is 4.8 electrolytes are normal renal profile is abnormal with a BUN of 23 creatinine is 1.92. Reevaluated today on 08/19/2020, patient is scheduled to have off pump coronary artery bypass surgery tomorrow by Dr. Chávez. Patient was already seen by vascular surgery, and the plan to eventually perform carotid endarterectomy on this patient in the near future but definitely after his CABG. Patient has bilateral internal carotid stenosis with right greater than left. Right ICA is 99%, left ICA is 70% stenosis. Again his carotid surgery will likely be scheduled in 4-6 weeks. Patient was reevaluated today on 08/20/2020, patient just came back to the ICU, he is off pump CABG 3 with REID to LAD, saphenous vein graft to first obtuse marginal and RCA arteries exclusion of left atrial appendage with 35 mm articure clip. Patient is in the ICU, he is now on mechanical ventilation, his ventilator settings are assist control rate of 10 increased at 12, tidal volume is 500, FiO2 is 40%, and PEEP is 5.ABG showed a pO2 of over 400 pCO2 of 47 pH of 7.31. Hence his rate was increased up to 12. Postoperative chest x-ray showed postsurgical changes with small tiny left apical pneumothorax but there is a chest tube in place, and by basilar atelectasis, expected postoperatively. Reevaluated today on 08/21/2020, patient remains in the ICU, he is status post off-pump CABG 3 with REID to LAD, saphenous vein graft to first obtuse marginal and right coronary arteries. Patient was extubated yesterday uneventfully at 16:22. And his post extubation course has been uneventful. Patient is achieving 1000 mL on his incentive spirometer. He is in sinus rhythm, hemodynamically stable, cardiac output is 6.1 index is 3.5. CVP is 6. Chest tube and mediastinal tube on low suction, no air leak is noted. Serosanguineous drainage is noted. No major issues in the last 12 hours Objective - Vital Signs Vital signs: Vital Signs Temp 37.2 F L 08/21/20 08:00 Pulse 85 08/21/20 11:00 Resp 13 08/21/20 11:00 BP 114/66 08/21/20 11:00 Pulse Ox 98 08/21/20 11:00 Intake & Output 08/20/20 08/21/20 08/21/20 18:59 06:59 18:59 Intake Total 766.628 2674.218 450.995 Output Total 1640 1545 440 Balance -718.578 -190.782 10.995 Weight 62.233 kg 62.233 kg Intake: IV 865.0 851.0 239.0 Albumin Human 5% 250 ml 500 In Empty Bag 1 bag @ 250 mls/hr IVPB Q1HR PRN Rx#: [id number] CO/CI 200 20 Lactated Ringers 1,000 ml 300 600 180 @ 20 mls/hr IV .Q24H [facility] Rx#:[id number] Nitroglycerin-D5w Pmx 50 9.0 18.0 3.0 mg In Dextrose/Water 1 250ml.bag @ 5 MCG/MIN 1.5 mls/hr IV .Q24H [facility] Rx#: [id number] Pressure bag 0.9 33 36 Intake, IV Titration 56.422 263.218 11.995 Amount ACETAMINOPHEN IV (For NPO 100 ) 1,000 mg In Empty Bag 1 bag @ 400 mls/hr IVPB Q6HR [facility] Rx#:[id number] Clevidipine Butyrate 25 7.401 mg In Empty Bag 1 bag @ 1 MG/HR 2 mls/hr IV .Q24H [facility] Rx#:[id number] DOPamine DRIP 800 mg In 6.837 Dextrose/Water 1 250ml. bag @ 2 MCG/KG/MIN 2.344 mls/hr IV .Q24H [facility] Rx#: [id number] Insulin Regular 100 unit 12.230 5.817 11.995 In Sodium Chloride 0.9% 100 ml @ Per Protocol IV .Q0M [facility] Rx#:[id number] Insulin Regular 100 unit 0.417 In Sodium Chloride 0.9% 100 ml @ Titrate IV .Q0M [facility] Rx#:[id number] Magnesium Sulfate-D5w Pmx 100 1 gm In Dextrose/Water 1 100ml.bag @ 100 mls/hr IVPB Q1H [facility] Rx#: [id number] ceFAZolin 2 gm In Sodium 50 Chloride 0.9% 50 ml @ 100 mls/hr IVPB Q8HR [facility] Rx# :[id number] propofoL 1,000 mg In 36.938 Empty Bag 1 bag @ Titrate IV .Q0M [facility] Rx#: [id number] Oral 240 200 Output: Chest Tube Drainage 460 730 180 Bilateral Anterior Chest 300 560 130 Left Lateral Chest 0 Mediastinal 160 170 50 Right Lateral Chest 0 Urine 680 815 260 Estimated Blood Loss 500 Other: Voiding Method Indwelling Catheter Indwelling Catheter Indwelling Catheter # Voids 1 ABP, PAP, CO, CI - Last Documented Arterial Blood Pressure 134/55 Pulmonary Artery Pressure 32/15 Cardiac Output 7.1 Cardiac Index 4.1 - Exam Gen: This is a 59-year-old male. Sitting at a bedside chair, in no distress, on nasal cannula. HEENT: Head is atraumatic, normocephalic. Pupils equal, round. Sclerae is anicteric. NECK: Supple. No JVD. No lymphadenopathy. No thyromegaly. LUNGS: Symmetrical chest expansion, fine crackles at the bases.Mediastinal, left and right pleural chest tubes remain in place to low continuous wall suction -20 cm H2O. No air leak is present. Draining thin serosanguineous drainage. Pleural chest tubes with 410 mL output in the last 8 hours and 650 mL output since surgery. Mediastinal chest tube with 80 mL output the last 8 hours and 310 mL output since surgery. HEART: Regular rate and rhythm. No murmur. Positive pericardial rub.current hemodynamic showing a cardiac output 6.1, cardiac index 3.5, PA pressures 29/9 and CVP 6 mmHg. Right radial arterial line in place and functioning. Knee-high RUTHANN hose and sequential compression devices in place to his bilateral lower extremities. Heart hugger is in place and he is demonstrating appropriate use. ABDOMEN: Soft. Bowel sounds are present. No masses. No tenderness. EXTREMITIES: No pedal edema. No calf tenderness. NEUROLOGICAL: Alert and oriented 3, no gross focal neurologic deficits. Psychiatric: Normal mood, affect and normal mental status examination - Labs CBC & Chem 7: 08/21/20 04:10 08/21/20 04:10 Labs: Abnormal Lab Results - Last 24 Hours (Table) 08/18/20 08/20/20 08/20/20 Range/Units 06:43 12:45 12:45 RBC 2.27 L (4.30-5.90) m/uL Hgb 7.5 L D (13.0-17.5) gm/dL Hct 21.5 L (39.0-53.0) % RDW (11.5-15.5) % Lymphocytes # (1.0-4.8) k/uL ABG pH (7.35-7.45) ABG pCO2 (35-45) mmHg ABG pO2 (83-108) mmHg ABG HCO3 (21-25) mmol/L ABG Total CO2 (19-24) mmol/L ABG O2 Saturation (94-97) % Sodium (137-145) mmol/L Chloride 112 H (98-107) mmol/L BUN 24 H (9-20) mg/dL Creatinine 1.96 H (0.66-1.25) mg/dL Glucose (74-99) mg/dL POC Glucose (mg/dL) (75-99) mg/dL Calcium 7.6 L (8.4-10.2) mg/dL Total Protein 4.8 L (6.3-8.2) g/dL Albumin 2.7 L (3.5-5.0) g/dL Crossmatch See Detail 08/20/20 08/20/20 08/20/20 Range/Units 13:45 13:54 14:18 RBC (4.30-5.90) m/uL Hgb (13.0-17.5) gm/dL Hct (39.0-53.0) % RDW (11.5-15.5) % Lymphocytes # (1.0-4.8) k/uL ABG pH 7.31 L (7.35-7.45) ABG pCO2 47 H (35-45) mmHg ABG pO2 >400 H (83-108) mmHg ABG HCO3 (21-25) mmol/L ABG Total CO2 25 H (19-24) mmol/L ABG O2 Saturation 100.0 H (94-97) % Sodium (137-145) mmol/L Chloride (98-107) mmol/L BUN (9-20) mg/dL Creatinine (0.66-1.25) mg/dL Glucose (74-99) mg/dL POC Glucose (mg/dL) 63 L 110 H (75-99) mg/dL Calcium (8.4-10.2) mg/dL Total Protein (6.3-8.2) g/dL Albumin (3.5-5.0) g/dL Crossmatch 08/20/20 08/20/20 08/20/20 Range/Units 15:17 16:09 16:12 RBC (4.30-5.90) m/uL Hgb (13.0-17.5) gm/dL Hct (39.0-53.0) % RDW (11.5-15.5) % Lymphocytes # (1.0-4.8) k/uL ABG pH 7.32 L (7.35-7.45) ABG pCO2 (35-45) mmHg ABG pO2 154 H (83-108) mmHg ABG HCO3 20 L (21-25) mmol/L ABG Total CO2 (19-24) mmol/L ABG O2 Saturation 99.9 H (94-97) % Sodium (137-145) mmol/L Chloride (98-107) mmol/L BUN (9-20) mg/dL Creatinine (0.66-1.25) mg/dL Glucose (74-99) mg/dL POC Glucose (mg/dL) 141 H 165 H (75-99) mg/dL Calcium (8.4-10.2) mg/dL Total Protein (6.3-8.2) g/dL Albumin (3.5-5.0) g/dL Crossmatch 08/20/20 08/20/20 08/20/20 Range/Units 16:56 17:12 17:59 RBC 2.15 L (4.30-5.90) m/uL Hgb 6.5 L* (13.0-17.5) gm/dL Hct 20.3 L (39.0-53.0) % RDW 15.9 H (11.5-15.5) % Lymphocytes # 0.6 L (1.0-4.8) k/uL ABG pH (7.35-7.45) ABG pCO2 (35-45) mmHg ABG pO2 (83-108) mmHg ABG HCO3 (21-25) mmol/L ABG Total CO2 (19-24) mmol/L ABG O2 Saturation (94-97) % Sodium (137-145) mmol/L Chloride (98-107) mmol/L BUN (9-20) mg/dL Creatinine (0.66-1.25) mg/dL Glucose (74-99) mg/dL POC Glucose (mg/dL) 179 H 154 H (75-99) mg/dL Calcium (8.4-10.2) mg/dL Total Protein (6.3-8.2) g/dL Albumin (3.5-5.0) g/dL Crossmatch 08/20/20 08/20/20 08/20/20 Range/Units 19:08 20:07 21:01 RBC (4.30-5.90) m/uL Hgb (13.0-17.5) gm/dL Hct (39.0-53.0) % RDW (11.5-15.5) % Lymphocytes # (1.0-4.8) k/uL ABG pH (7.35-7.45) ABG pCO2 (35-45) mmHg ABG pO2 (83-108) mmHg ABG HCO3 (21-25) mmol/L ABG Total CO2 (19-24) mmol/L ABG O2 Saturation (94-97) % Sodium (137-145) mmol/L Chloride (98-107) mmol/L BUN (9-20) mg/dL Creatinine (0.66-1.25) mg/dL Glucose (74-99) mg/dL POC Glucose (mg/dL) 141 H 104 H 120 H (75-99) mg/dL Calcium (8.4-10.2) mg/dL Total Protein (6.3-8.2) g/dL Albumin (3.5-5.0) g/dL Crossmatch 08/20/20 08/20/20 08/20/20 Range/Units 22:04 22:55 23:37 RBC (4.30-5.90) m/uL Hgb (13.0-17.5) gm/dL Hct (39.0-53.0) % RDW (11.5-15.5) % Lymphocytes # (1.0-4.8) k/uL ABG pH (7.35-7.45) ABG pCO2 (35-45) mmHg ABG pO2 (83-108) mmHg ABG HCO3 (21-25) mmol/L ABG Total CO2 (19-24) mmol/L ABG O2 Saturation (94-97) % Sodium (137-145) mmol/L Chloride (98-107) mmol/L BUN (9-20) mg/dL Creatinine (0.66-1.25) mg/dL Glucose (74-99) mg/dL POC Glucose (mg/dL) 131 H 140 H 148 H (75-99) mg/dL Calcium (8.4-10.2) mg/dL Total Protein (6.3-8.2) g/dL Albumin (3.5-5.0) g/dL Crossmatch 08/21/20 08/21/20 08/21/20 Range/Units 00:57 02:02 02:54 RBC (4.30-5.90) m/uL Hgb (13.0-17.5) gm/dL Hct (39.0-53.0) % RDW (11.5-15.5) % Lymphocytes # (1.0-4.8) k/uL ABG pH (7.35-7.45) ABG pCO2 (35-45) mmHg ABG pO2 (83-108) mmHg ABG HCO3 (21-25) mmol/L ABG Total CO2 (19-24) mmol/L ABG O2 Saturation (94-97) % Sodium (137-145) mmol/L Chloride (98-107) mmol/L BUN (9-20) mg/dL Creatinine (0.66-1.25) mg/dL Glucose (74-99) mg/dL POC Glucose (mg/dL) 127 H 108 H 127 H (75-99) mg/dL Calcium (8.4-10.2) mg/dL Total Protein (6.3-8.2) g/dL Albumin (3.5-5.0) g/dL Crossmatch 08/21/20 08/21/20 08/21/20 Range/Units 04:10 04:10 04:10 RBC 2.04 L (4.30-5.90) m/uL Hgb 6.5 L* (13.0-17.5) gm/dL Hct 19.4 L* (39.0-53.0) % RDW 15.6 H (11.5-15.5) % Lymphocytes # 0.9 L (1.0-4.8) k/uL ABG pH (7.35-7.45) ABG pCO2 (35-45) mmHg ABG pO2 (83-108) mmHg ABG HCO3 (21-25) mmol/L ABG Total CO2 (19-24) mmol/L ABG O2 Saturation (94-97) % Sodium 132 L (137-145) mmol/L Chloride (98-107) mmol/L BUN 25 H (9-20) mg/dL Creatinine 2.09 H (0.66-1.25) mg/dL Glucose 108 H (74-99) mg/dL POC Glucose (mg/dL) 125 H (75-99) mg/dL Calcium 7.6 L (8.4-10.2) mg/dL Total Protein 4.5 L (6.3-8.2) g/dL Albumin 2.5 L (3.5-5.0) g/dL Crossmatch 08/21/20 08/21/20 08/21/20 Range/Units 04:58 06:22 06:54 RBC (4.30-5.90) m/uL Hgb (13.0-17.5) gm/dL Hct (39.0-53.0) % RDW (11.5-15.5) % Lymphocytes # (1.0-4.8) k/uL ABG pH (7.35-7.45) ABG pCO2 (35-45) mmHg ABG pO2 (83-108) mmHg ABG HCO3 (21-25) mmol/L ABG Total CO2 (19-24) mmol/L ABG O2 Saturation (94-97) % Sodium (137-145) mmol/L Chloride (98-107) mmol/L BUN (9-20) mg/dL Creatinine (0.66-1.25) mg/dL Glucose (74-99) mg/dL POC Glucose (mg/dL) 101 H 136 H 129 H (75-99) mg/dL Calcium (8.4-10.2) mg/dL Total Protein (6.3-8.2) g/dL Albumin (3.5-5.0) g/dL Crossmatch 08/21/20 08/21/20 08/21/20 Range/Units 08:10 10:15 11:22 RBC (4.30-5.90) m/uL Hgb (13.0-17.5) gm/dL Hct (39.0-53.0) % RDW (11.5-15.5) % Lymphocytes # (1.0-4.8) k/uL ABG pH (7.35-7.45) ABG pCO2 (35-45) mmHg ABG pO2 (83-108) mmHg ABG HCO3 (21-25) mmol/L ABG Total CO2 (19-24) mmol/L ABG O2 Saturation (94-97) % Sodium (137-145) mmol/L Chloride (98-107) mmol/L BUN (9-20) mg/dL Creatinine (0.66-1.25) mg/dL Glucose (74-99) mg/dL POC Glucose (mg/dL) 130 H 208 H 185 H (75-99) mg/dL Calcium (8.4-10.2) mg/dL Total Protein (6.3-8.2) g/dL Albumin (3.5-5.0) g/dL Crossmatch 08/21/20 Range/Units 12:42 RBC (4.30-5.90) m/uL Hgb (13.0-17.5) gm/dL Hct (39.0-53.0) % RDW (11.5-15.5) % Lymphocytes # (1.0-4.8) k/uL ABG pH (7.35-7.45) ABG pCO2 (35-45) mmHg ABG pO2 (83-108) mmHg ABG HCO3 (21-25) mmol/L ABG Total CO2 (19-24) mmol/L ABG O2 Saturation (94-97) % Sodium (137-145) mmol/L Chloride (98-107) mmol/L BUN (9-20) mg/dL Creatinine (0.66-1.25) mg/dL Glucose (74-99) mg/dL POC Glucose (mg/dL) 147 H (75-99) mg/dL Calcium (8.4-10.2) mg/dL Total Protein (6.3-8.2) g/dL Albumin (3.5-5.0) g/dL Crossmatch Assessment and Plan Assessment: Impression: Status post off-pump CABG 3. Postoperative day #1. Acute non-ST elevation myocardial infarction Severe coronary artery disease. Severe carotid artery disease/right carotid artery stenosis may require surgery prior to CABG. Acute on chronic kidney disease. Type 1 diabetes. Benign essential hypertension. Chronic anemia of chronic kidney disease. Peripheral vessel occlusive disease. Tobacco dependence syndrome. Recommendation: Continue incentive spirometry. Wean oxygen as tolerated. Early ambulation. Increase activity. Pain control. Continue beta blockers, statin, aspirin, and Plavix. Continue GI and DVT prophylaxis. Discontinue unnecessary lines and catheters.. We'll continue to follow. Time with Patient: Less than 30
[2020-08-21 13:36] LABS: Glucose,Whole Blood 244 mg/dL (75-99)
--- NOTE | 2020-08-21 14:13 | P.PN ---
Subjective Progress Note Date: 08/21/20 Principal diagnosis: NSTEMI, severe carotid stenosis Patient was seen and examined sitting up in bed in ICU. He is status postop day 1 for pump CABG 3 with REID to LAD, saphenous vein graft to first obtuse marginal and right coronary arteries. Patient was extubated yesterday evening. Appeared in no acute distress. He is denying any current chest pain other than surgical pain, shortness of breath, abdominal pain, nausea, or vomiting. He denies any focal deficits. He is hemodynamically stable. His oxygen saturation is 98% on room air. Chest tubes in place. Objective - Vital Signs Vital signs: Vital Signs Temp 37.2 F L 08/21/20 08:00 Pulse 89 08/21/20 10:00 Resp 12 08/21/20 10:00 BP 107/75 08/21/20 10:00 Pulse Ox 98 08/21/20 10:00 Intake & Output 08/20/20 08/21/20 08/21/20 18:59 06:59 18:59 Intake Total 714.587 9452.218 397.697 Output Total 1640 1545 325 Balance -718.578 -190.782 72.697 Weight 62.233 kg 62.233 kg Intake: IV 865.0 851.0 193.0 Albumin Human 5% 250 ml 500 In Empty Bag 1 bag @ 250 mls/hr IVPB Q1HR PRN Rx#: [id number] CO/CI 200 20 Lactated Ringers 1,000 ml 300 600 140 @ 20 mls/hr IV .Q24H [facility] Rx#:[id number] Nitroglycerin-D5w Pmx 50 9.0 18.0 3.0 mg In Dextrose/Water 1 250ml.bag @ 5 MCG/MIN 1.5 mls/hr IV .Q24H [facility] Rx#: [id number] Pressure bag 0.9 33 30 Intake, IV Titration 56.422 263.218 4.697 Amount ACETAMINOPHEN IV (For NPO 100 ) 1,000 mg In Empty Bag 1 bag @ 400 mls/hr IVPB Q6HR [facility] Rx#:[id number] Clevidipine Butyrate 25 7.401 mg In Empty Bag 1 bag @ 1 MG/HR 2 mls/hr IV .Q24H [facility] Rx#:[id number] DOPamine DRIP 800 mg In 6.837 Dextrose/Water 1 250ml. bag @ 2 MCG/KG/MIN 2.344 mls/hr IV .Q24H [facility] Rx#: [id number] Insulin Regular 100 unit 12.230 5.817 4.697 In Sodium Chloride 0.9% 100 ml @ Per Protocol IV .Q0M [facility] Rx#:[id number] Insulin Regular 100 unit 0.417 In Sodium Chloride 0.9% 100 ml @ Titrate IV .Q0M [facility] Rx#:[id number] Magnesium Sulfate-D5w Pmx 100 1 gm In Dextrose/Water 1 100ml.bag @ 100 mls/hr IVPB Q1H [facility] Rx#: [id number] ceFAZolin 2 gm In Sodium 50 Chloride 0.9% 50 ml @ 100 mls/hr IVPB Q8HR [facility] Rx# :[id number] propofoL 1,000 mg In 36.938 Empty Bag 1 bag @ Titrate IV .Q0M [facility] Rx#: [id number] Oral 240 200 Output: Chest Tube Drainage 460 730 180 Bilateral Anterior Chest 300 560 130 Mediastinal 160 170 50 Urine 680 815 145 Estimated Blood Loss 500 Other: Voiding Method Indwelling Catheter Indwelling Catheter Indwelling Catheter # Voids 1 ABP, PAP, CO, CI - Last Documented Arterial Blood Pressure 134/55 Pulmonary Artery Pressure 32/15 Cardiac Output 7.1 Cardiac Index 4.1 - Exam General appearance: The patient is alert, oriented, appears in no acute distress. HET: Head is normocephalic and atraumatic. Neck: Supple without lymphadenopathy. Trachea midline. Heart: S1 S2. Regular rate and rhythm. Lungs: Normal expansion, clear to auscultation. Left mediastinal and right pleural chest tubes in place. Extremities: Normal skin color and turgor. Neurological: No focal deficits. Strength and sensation are grossly intact. - Labs CBC & Chem 7: 08/21/20 04:10 08/21/20 04:10 Labs: Abnormal Lab Results - Last 24 Hours (Table) 08/18/20 08/20/20 08/20/20 Range/Units 06:43 08:25 10:03 RBC (4.30-5.90) m/uL Hgb (13.0-17.5) gm/dL Hct (39.0-53.0) % RDW (11.5-15.5) % Lymphocytes # (1.0-4.8) k/uL ABG pH 7.25 L (7.35-7.45) ABG pCO2 34 L 51 H (35-45) mmHg ABG pO2 327 H 276 H (83-108) mmHg ABG HCO3 (21-25) mmol/L ABG Total CO2 (19-24) mmol/L ABG O2 Saturation 100.0 H 99.8 H (94-97) % ABG Hematocrit 25 L 23 L (34.0-46.0) % ABG Potassium 4.8 H (3.4-4.5) mmol/L ABG Glucose 153 H 230 H (75-99) mg/dL ABG Lactic Acid 0.4 L (0.5-1.6) mmol/L Hemoglobin 8.1 L 7.6 L (13.0-17.5) gm/dL Sodium (137-145) mmol/L Chloride (98-107) mmol/L BUN (9-20) mg/dL Creatinine (0.66-1.25) mg/dL Glucose (74-99) mg/dL POC Glucose (mg/dL) (75-99) mg/dL Calcium (8.4-10.2) mg/dL Total Protein (6.3-8.2) g/dL Albumin (3.5-5.0) g/dL Arterial Blood Potassium 4.8 H (3.4-4.5) mmol/L Arterial Blood Glucose 153 H 230 H (75-99) mg/dL Crossmatch See Detail 08/20/20 08/20/20 08/20/20 Range/Units 10:13 10:37 11:04 RBC (4.30-5.90) m/uL Hgb (13.0-17.5) gm/dL Hct (39.0-53.0) % RDW (11.5-15.5) % Lymphocytes # (1.0-4.8) k/uL ABG pH 7.33 L (7.35-7.45) ABG pCO2 48 H (35-45) mmHg ABG pO2 249 H 228 H 234 H (83-108) mmHg ABG HCO3 (21-25) mmol/L ABG Total CO2 26 H 25 H (19-24) mmol/L ABG O2 Saturation 99.8 H 99.9 H 99.8 H (94-97) % ABG Hematocrit 23 L 22 L 21 L (34.0-46.0) % ABG Potassium (3.4-4.5) mmol/L ABG Glucose 227 H 198 H 172 H (75-99) mg/dL ABG Lactic Acid (0.5-1.6) mmol/L Hemoglobin 7.5 L 7.2 L 6.9 L* (13.0-17.5) gm/dL Sodium (137-145) mmol/L Chloride (98-107) mmol/L BUN (9-20) mg/dL Creatinine (0.66-1.25) mg/dL Glucose (74-99) mg/dL POC Glucose (mg/dL) (75-99) mg/dL Calcium (8.4-10.2) mg/dL Total Protein (6.3-8.2) g/dL Albumin (3.5-5.0) g/dL Arterial Blood Potassium (3.4-4.5) mmol/L Arterial Blood Glucose 227 H 198 H 172 H (75-99) mg/dL Crossmatch 08/20/20 08/20/20 08/20/20 Range/Units 11:34 12:45 12:45 RBC 2.27 L (4.30-5.90) m/uL Hgb 7.5 L D (13.0-17.5) gm/dL Hct 21.5 L (39.0-53.0) % RDW (11.5-15.5) % Lymphocytes # (1.0-4.8) k/uL ABG pH (7.35-7.45) ABG pCO2 (35-45) mmHg ABG pO2 242 H (83-108) mmHg ABG HCO3 (21-25) mmol/L ABG Total CO2 (19-24) mmol/L ABG O2 Saturation 100.0 H (94-97) % ABG Hematocrit 22 L (34.0-46.0) % ABG Potassium (3.4-4.5) mmol/L ABG Glucose 138 H (75-99) mg/dL ABG Lactic Acid 1.7 H (0.5-1.6) mmol/L Hemoglobin 7.2 L (13.0-17.5) gm/dL Sodium (137-145) mmol/L Chloride 112 H (98-107) mmol/L BUN 24 H (9-20) mg/dL Creatinine 1.96 H (0.66-1.25) mg/dL Glucose (74-99) mg/dL POC Glucose (mg/dL) (75-99) mg/dL Calcium 7.6 L (8.4-10.2) mg/dL Total Protein 4.8 L (6.3-8.2) g/dL Albumin 2.7 L (3.5-5.0) g/dL Arterial Blood Potassium (3.4-4.5) mmol/L Arterial Blood Glucose 138 H (75-99) mg/dL Crossmatch 08/20/20 08/20/20 08/20/20 Range/Units 13:45 13:54 14:18 RBC (4.30-5.90) m/uL Hgb (13.0-17.5) gm/dL Hct (39.0-53.0) % RDW (11.5-15.5) % Lymphocytes # (1.0-4.8) k/uL ABG pH 7.31 L (7.35-7.45) ABG pCO2 47 H (35-45) mmHg ABG pO2 >400 H (83-108) mmHg ABG HCO3 (21-25) mmol/L ABG Total CO2 25 H (19-24) mmol/L ABG O2 Saturation 100.0 H (94-97) % ABG Hematocrit (34.0-46.0) % ABG Potassium (3.4-4.5) mmol/L ABG Glucose (75-99) mg/dL ABG Lactic Acid (0.5-1.6) mmol/L Hemoglobin (13.0-17.5) gm/dL Sodium (137-145) mmol/L Chloride (98-107) mmol/L BUN (9-20) mg/dL Creatinine (0.66-1.25) mg/dL Glucose (74-99) mg/dL POC Glucose (mg/dL) 63 L 110 H (75-99) mg/dL Calcium (8.4-10.2) mg/dL Total Protein (6.3-8.2) g/dL Albumin (3.5-5.0) g/dL Arterial Blood Potassium (3.4-4.5) mmol/L Arterial Blood Glucose (75-99) mg/dL Crossmatch 08/20/20 08/20/20 08/20/20 Range/Units 15:17 16:09 16:12 RBC (4.30-5.90) m/uL Hgb (13.0-17.5) gm/dL Hct (39.0-53.0) % RDW (11.5-15.5) % Lymphocytes # (1.0-4.8) k/uL ABG pH 7.32 L (7.35-7.45) ABG pCO2 (35-45) mmHg ABG pO2 154 H (83-108) mmHg ABG HCO3 20 L (21-25) mmol/L ABG Total CO2 (19-24) mmol/L ABG O2 Saturation 99.9 H (94-97) % ABG Hematocrit (34.0-46.0) % ABG Potassium (3.4-4.5) mmol/L ABG Glucose (75-99) mg/dL ABG Lactic Acid (0.5-1.6) mmol/L Hemoglobin (13.0-17.5) gm/dL Sodium (137-145) mmol/L Chloride (98-107) mmol/L BUN (9-20) mg/dL Creatinine (0.66-1.25) mg/dL Glucose (74-99) mg/dL POC Glucose (mg/dL) 141 H 165 H (75-99) mg/dL Calcium (8.4-10.2) mg/dL Total Protein (6.3-8.2) g/dL Albumin (3.5-5.0) g/dL Arterial Blood Potassium (3.4-4.5) mmol/L Arterial Blood Glucose (75-99) mg/dL Crossmatch 08/20/20 08/20/20 08/20/20 Range/Units 16:56 17:12 17:59 RBC 2.15 L (4.30-5.90) m/uL Hgb 6.5 L* (13.0-17.5) gm/dL Hct 20.3 L (39.0-53.0) % RDW 15.9 H (11.5-15.5) % Lymphocytes # 0.6 L (1.0-4.8) k/uL ABG pH (7.35-7.45) ABG pCO2 (35-45) mmHg ABG pO2 (83-108) mmHg ABG HCO3 (21-25) mmol/L ABG Total CO2 (19-24) mmol/L ABG O2 Saturation (94-97) % ABG Hematocrit (34.0-46.0) % ABG Potassium (3.4-4.5) mmol/L ABG Glucose (75-99) mg/dL ABG Lactic Acid (0.5-1.6) mmol/L Hemoglobin (13.0-17.5) gm/dL Sodium (137-145) mmol/L Chloride (98-107) mmol/L BUN (9-20) mg/dL Creatinine (0.66-1.25) mg/dL Glucose (74-99) mg/dL POC Glucose (mg/dL) 179 H 154 H (75-99) mg/dL Calcium (8.4-10.2) mg/dL Total Protein (6.3-8.2) g/dL Albumin (3.5-5.0) g/dL Arterial Blood Potassium (3.4-4.5) mmol/L Arterial Blood Glucose (75-99) mg/dL Crossmatch 08/20/20 08/20/20 08/20/20 Range/Units 19:08 20:07 21:01 RBC (4.30-5.90) m/uL Hgb (13.0-17.5) gm/dL Hct (39.0-53.0) % RDW (11.5-15.5) % Lymphocytes # (1.0-4.8) k/uL ABG pH (7.35-7.45) ABG pCO2 (35-45) mmHg ABG pO2 (83-108) mmHg ABG HCO3 (21-25) mmol/L ABG Total CO2 (19-24) mmol/L ABG O2 Saturation (94-97) % ABG Hematocrit (34.0-46.0) % ABG Potassium (3.4-4.5) mmol/L ABG Glucose (75-99) mg/dL ABG Lactic Acid (0.5-1.6) mmol/L Hemoglobin (13.0-17.5) gm/dL Sodium (137-145) mmol/L Chloride (98-107) mmol/L BUN (9-20) mg/dL Creatinine (0.66-1.25) mg/dL Glucose (74-99) mg/dL POC Glucose (mg/dL) 141 H 104 H 120 H (75-99) mg/dL Calcium (8.4-10.2) mg/dL Total Protein (6.3-8.2) g/dL Albumin (3.5-5.0) g/dL Arterial Blood Potassium (3.4-4.5) mmol/L Arterial Blood Glucose (75-99) mg/dL Crossmatch 08/20/20 08/20/20 08/20/20 Range/Units 22:04 22:55 23:37 RBC (4.30-5.90) m/uL Hgb (13.0-17.5) gm/dL Hct (39.0-53.0) % RDW (11.5-15.5) % Lymphocytes # (1.0-4.8) k/uL ABG pH (7.35-7.45) ABG pCO2 (35-45) mmHg ABG pO2 (83-108) mmHg ABG HCO3 (21-25) mmol/L ABG Total CO2 (19-24) mmol/L ABG O2 Saturation (94-97) % ABG Hematocrit (34.0-46.0) % ABG Potassium (3.4-4.5) mmol/L ABG Glucose (75-99) mg/dL ABG Lactic Acid (0.5-1.6) mmol/L Hemoglobin (13.0-17.5) gm/dL Sodium (137-145) mmol/L Chloride (98-107) mmol/L BUN (9-20) mg/dL Creatinine (0.66-1.25) mg/dL Glucose (74-99) mg/dL POC Glucose (mg/dL) 131 H 140 H 148 H (75-99) mg/dL Calcium (8.4-10.2) mg/dL Total Protein (6.3-8.2) g/dL Albumin (3.5-5.0) g/dL Arterial Blood Potassium (3.4-4.5) mmol/L Arterial Blood Glucose (75-99) mg/dL Crossmatch 08/21/20 08/21/20 08/21/20 Range/Units 00:57 02:02 02:54 RBC (4.30-5.90) m/uL Hgb (13.0-17.5) gm/dL Hct (39.0-53.0) % RDW (11.5-15.5) % Lymphocytes # (1.0-4.8) k/uL ABG pH (7.35-7.45) ABG pCO2 (35-45) mmHg ABG pO2 (83-108) mmHg ABG HCO3 (21-25) mmol/L ABG Total CO2 (19-24) mmol/L ABG O2 Saturation (94-97) % ABG Hematocrit (34.0-46.0) % ABG Potassium (3.4-4.5) mmol/L ABG Glucose (75-99) mg/dL ABG Lactic Acid (0.5-1.6) mmol/L Hemoglobin (13.0-17.5) gm/dL Sodium (137-145) mmol/L Chloride (98-107) mmol/L BUN (9-20) mg/dL Creatinine (0.66-1.25) mg/dL Glucose (74-99) mg/dL POC Glucose (mg/dL) 127 H 108 H 127 H (75-99) mg/dL Calcium (8.4-10.2) mg/dL Total Protein (6.3-8.2) g/dL Albumin (3.5-5.0) g/dL Arterial Blood Potassium (3.4-4.5) mmol/L Arterial Blood Glucose (75-99) mg/dL Crossmatch 08/21/20 08/21/20 08/21/20 Range/Units 04:10 04:10 04:10 RBC 2.04 L (4.30-5.90) m/uL Hgb 6.5 L* (13.0-17.5) gm/dL Hct 19.4 L* (39.0-53.0) % RDW 15.6 H (11.5-15.5) % Lymphocytes # 0.9 L (1.0-4.8) k/uL ABG pH (7.35-7.45) ABG pCO2 (35-45) mmHg ABG pO2 (83-108) mmHg ABG HCO3 (21-25) mmol/L ABG Total CO2 (19-24) mmol/L ABG O2 Saturation (94-97) % ABG Hematocrit (34.0-46.0) % ABG Potassium (3.4-4.5) mmol/L ABG Glucose (75-99) mg/dL ABG Lactic Acid (0.5-1.6) mmol/L Hemoglobin (13.0-17.5) gm/dL Sodium 132 L (137-145) mmol/L Chloride (98-107) mmol/L BUN 25 H (9-20) mg/dL Creatinine 2.09 H (0.66-1.25) mg/dL Glucose 108 H (74-99) mg/dL POC Glucose (mg/dL) 125 H (75-99) mg/dL Calcium 7.6 L (8.4-10.2) mg/dL Total Protein 4.5 L (6.3-8.2) g/dL Albumin 2.5 L (3.5-5.0) g/dL Arterial Blood Potassium (3.4-4.5) mmol/L Arterial Blood Glucose (75-99) mg/dL Crossmatch 08/21/20 08/21/20 08/21/20 Range/Units 04:58 06:22 06:54 RBC (4.30-5.90) m/uL Hgb (13.0-17.5) gm/dL Hct (39.0-53.0) % RDW (11.5-15.5) % Lymphocytes # (1.0-4.8) k/uL ABG pH (7.35-7.45) ABG pCO2 (35-45) mmHg ABG pO2 (83-108) mmHg ABG HCO3 (21-25) mmol/L ABG Total CO2 (19-24) mmol/L ABG O2 Saturation (94-97) % ABG Hematocrit (34.0-46.0) % ABG Potassium (3.4-4.5) mmol/L ABG Glucose (75-99) mg/dL ABG Lactic Acid (0.5-1.6) mmol/L Hemoglobin (13.0-17.5) gm/dL Sodium (137-145) mmol/L Chloride (98-107) mmol/L BUN (9-20) mg/dL Creatinine (0.66-1.25) mg/dL Glucose (74-99) mg/dL POC Glucose (mg/dL) 101 H 136 H 129 H (75-99) mg/dL Calcium (8.4-10.2) mg/dL Total Protein (6.3-8.2) g/dL Albumin (3.5-5.0) g/dL Arterial Blood Potassium (3.4-4.5) mmol/L Arterial Blood Glucose (75-99) mg/dL Crossmatch 08/21/20 08/21/20 Range/Units 08:10 10:15 RBC (4.30-5.90) m/uL Hgb (13.0-17.5) gm/dL Hct (39.0-53.0) % RDW (11.5-15.5) % Lymphocytes # (1.0-4.8) k/uL ABG pH (7.35-7.45) ABG pCO2 (35-45) mmHg ABG pO2 (83-108) mmHg ABG HCO3 (21-25) mmol/L ABG Total CO2 (19-24) mmol/L ABG O2 Saturation (94-97) % ABG Hematocrit (34.0-46.0) % ABG Potassium (3.4-4.5) mmol/L ABG Glucose (75-99) mg/dL ABG Lactic Acid (0.5-1.6) mmol/L Hemoglobin (13.0-17.5) gm/dL Sodium (137-145) mmol/L Chloride (98-107) mmol/L BUN (9-20) mg/dL Creatinine (0.66-1.25) mg/dL Glucose (74-99) mg/dL POC Glucose (mg/dL) 130 H 208 H (75-99) mg/dL Calcium (8.4-10.2) mg/dL Total Protein (6.3-8.2) g/dL Albumin (3.5-5.0) g/dL Arterial Blood Potassium (3.4-4.5) mmol/L Arterial Blood Glucose (75-99) mg/dL Crossmatch Assessment and Plan Assessment: 1. Bilateral internal carotid artery stenosis, right greater than left, per carotid angiography right ICA 99% stenosis, left ICA 70% stenosis 2. Triple-vessel coronary artery disease, non-STEMI this admission it is post op day #1 off-pump CABG 3 3. History of coronary artery disease with prior stent placement in 2004 4. Hypertension 5. Hyperlipidemia 6. Type I diabetes mellitus 7. Peripheral neuropathy 8. Chronic kidney disease 9. Chronic anemia 10. Peripheral vascular disease, hx of left second and third toe amputation 11. Tobacco dependence 12. EtOH use Plan: He has postop day #[address] Silva had discussion with the patient prior to surgery regarding plans for follow-up and surgical intervention for carotid stenosis. Continue medical management. Thank you for this consultation we will sign off at this time. Patient agreeable to follow-up with Dr. Silva in 4-6 weeks. The impression and plan of care has been dictated as directed. I performed a history and examination of this patient, discussed the same with the dictator. I agree with the dictator's note ,documented as a scribe. Any additional findings or plans will be noted.
[2020-08-21 14:55] LABS: Glucose,Whole Blood 291 mg/dL (75-99)
[2020-08-21] MEDS ORDERED: INSPUCOR MISCELLANE PRN (15:49)
[2020-08-21] MEDS ORDERED: INSULIN PUMP BASAL RATES 1 EACH MISC MISCELLANE PRN (15:49)
[2020-08-21] MEDS ORDERED: INSULIN ASPART (NovoLOG) 100 UNIT/ML VIAL SQ PRN (15:49)
[2020-08-21 16:01] LABS: Glucose,Whole Blood 260 mg/dL (75-99)
[2020-08-21 17:09] LABS: Glucose,Whole Blood 201 mg/dL (75-99)
[2020-08-21] MEDS: ASCORBIC ACID 500 MG TAB PO SCH (17:17)
[2020-08-21] MEDS: INSULIN PUMP MEAL BOLUS 1 UNIT MISC MISCELLANE SCH ×3 (17:48→20:35)
[2020-08-21 20:33] LABS: Glucose,Whole Blood 378 mg/dL (75-99)
[2020-08-21] MEDS: SENNOSIDES-DOCUSATE SODIUM 1 EACH TAB PO SCH (20:35)
[2020-08-21] MEDS: METOPROLOL TARTRATE 50 MG TAB PO SCH (20:37)
[2020-08-21 21:58] LABS: Glucose,Whole Blood 447 mg/dL (75-99)
[2020-08-21] MEDS ORDERED: INSULIN ASPART (NovoLOG) 100 UNIT/ML VIAL SQ ONE (22:03)
[2020-08-21] MEDS: LACTATED RINGERS 1,000 ML IV SCH (22:15)
[2020-08-21 23:15] LABS: Glucose,Whole Blood 439 mg/dL (75-99)
[2020-08-22 00:17] LABS: Glucose,Whole Blood 394 mg/dL (75-99)
[2020-08-22] MEDS: METOPROLOL TARTRATE 50 MG TAB PO SCH ×2 (05:05→18:01)
[2020-08-22] MEDS: FERROUS SULFATE 325 MG TAB PO SCH ×2 (05:05→18:01)
[2020-08-22] MEDS: HEPARIN SODIUM,PORCINE 5,000 UNIT/ML 1 ML VIAL SQ SCH ×2 (05:05→15:27)
[2020-08-22] MEDS: ASCORBIC ACID 500 MG TAB PO SCH ×2 (05:06→18:01)
[2020-08-22] MEDS: PANTOPRAZOLE 40 MG TABLET PO SCH (05:06)
[2020-08-22] MEDS: HYDROcodone/APAP 7.5-325MG 1 EACH TAB PO PRN ×3 (05:06→18:07)
[2020-08-22 05:25] LABS: Basophils % (A) 0 %; Eosinophils # (A) 0.1 k/uL (0-0.7); Eosinophils % (A) 1 %; Lymphocytes % (A) 15 %; MCHC 33.9 g/dL (31.0-37.0); MCV 94.4 fL (80.0-100.0); Mean Platelet Volume 8.4; Monocytes # (A) 0.7 k/uL (0-1.0); Monocytes % (A) 9 %; Neutrophils # (A) 5.2 k/uL (1.3-7.7); Neutrophils % (A) 73 %; Platelet Count 198 k/uL (150-450); RBC 1.74 m/uL (4.30-5.90); RDW 15.8 % (11.5-15.5); WBC 7.2 k/uL (3.8-10.6)
[2020-08-22 06:07] LABS: HCT 16.4 % (39.0-53.0); HGB 5.6 gm/dL (13.0-17.5)
[2020-08-22 06:30] LABS: Ionized Calcium 4.7 mg/dL (4.5-5.3)
[2020-08-22 06:38] LABS: Albumin 2.4 g/dL (3.5-5.0); Calcium 7.8 mg/dL (8.4-10.2); Magnesium 2.4 mg/dL (1.6-2.3); Potassium 4.5 mmol/L (3.5-5.1); Total Bilirubin 0.2 mg/dL (0.2-1.3); Total Protein 4.5 g/dL (6.3-8.2)
[2020-08-22 06:50] LABS: Glucose,Whole Blood 76 mg/dL (75-99)
[2020-08-22] MEDS: IPRATROPIUM-ALBUTEROL 3 ML NEB INHALATION SCH ×4 (06:52→17:57)
[2020-08-22] MEDS: INSULIN PUMP MEAL BOLUS 1 UNIT MISC MISCELLANE SCH ×5 (07:56→21:34)
[2020-08-22] MEDS ORDERED: FUROSEMIDE 10 MG/ML 2 ML VIAL IV ONE (08:05)
--- NOTE | 2020-08-22 09:16 | XR ---
EXAMINATION TYPE: XR chest 1V portable DATE OF EXAM: 08/22/2020 COMPARISON: 08/21/2020 HISTORY: Postop TECHNIQUE: Single frontal view of the chest is obtained. FINDINGS: Bilateral chest tubes are seen. Right lung apex not included limited assessment for pneumo thorax. Bilateral consolidation and small effusion with a stable appearing 5% left apical pneumothora x. Postoperative changes seen. There is evidence of previous vertebroplasty. Heart size stable. IMPRESSION: 1. Bilateral consolidation and pleural effusion stable. 2. Postoperative changes with stable 5% left apical pneumothorax
--- NOTE | 2020-08-22 09:33 | PN ---
PROGRESS NOTE Mr. Knowles is a 59-year-old male who presented with non ST-segment elevation myocardial infarction, underwent coronary artery bypass grafting who was found to have significant obstructive disease of carotid artery. He is doing well this morning. He is in sinus mechanism. He is denying any symptoms of chest pain. He denies any dizziness or palpitation. He denies any nausea. He is using his incentive spirometry. He is ambulating in the room. Continues to be on aspirin once a day, metoprolol tartrate 50 mg twice a day, Plavix 75 mg daily, Lipitor 80 mg daily. PHYSICAL EXAMINATION: Blood pressure running in the 100s with the heart rate in the 70s. LUNGS: Mild decrease in breath sounds. No wheezes. HEART: Regular rate and rhythm. S1, S2. No S3. No rub. ABDOMEN: Soft, nontender. EXTREMITIES: No edema. LAB DATA: His hemoglobin is down to 5.6. His BUN and creatinine are 39 and 2.8. IMPRESSION: 1. Status post coronary bypass grafting, stable. 2. Anemia, worsened. 3. Severe carotid disease. 4. Diabetes. 5. Hypertension. 6. Hyperlipidemia. RECOMMENDATION: From the cardiac standpoint, the patient will be transfused. His level activity will be increased. He will continue on the incentive spirometry and depending on his progress, further recommendation will be made. MMARBENL / IJN: [id number] /
--- NOTE | 2020-08-22 09:38 | P.PN ---
Subjective Progress Note Date: 08/22/20 Principal diagnosis: Triple-vessel coronary artery disease, non-STEMI this admission, bilateral internal carotid artery stenosis, right 99%, left 70% per angiogram. 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 POD #2 Off-pump CABG 3 with REID to LAD, saphenous vein grafts to first obtuse marginal and right coronary arteries, exclusion of left atrial appendage with 35 mm AtriCure clip. Postoperative acute blood loss anemia, expected due to history of chronic anemia and hemodilution. The patient was seen in follow-up today 08/22/2020 at his bedside in the intensive care unit. Currently he is sitting up to the bedside chair, he is awake, alert and oriented x3. Denies any complaints of shortness of breath, and reports his pain is much better controlled this morning. Oxygen saturations are 98% on room air and he is achieving 1000 mL on his incentive spirometry with encouragement. He remains hemodynamically stable and is currently on no inotropic or pressor support. Left and right pleural chest tubes remain in place to low continuous wall suction -20 cm H2O. No air leak is present. Draining thin serosanguineous drainage with 115 mL of drainage in the last 8 hours and 250 mL output in the last 24 hours from his left pleural chest tube. 30 mL of drainage in the last 8 hours and 160 L output in the last 24 hours from his right pleural chest tube. Bedside telemetry showing normal sinus rhythm heart rate 78 BPM. Hemoglobin this morning is 5.6, BUN is 39 and creatinine is 2.68. His Ramirez catheter was discontinued early this morning and his urine outp ut has been adequate with 585 mL output in the last 8 hours. Objective - Vital Signs Vital signs: Vital Signs Temp 98.7 F 08/22/20 08:00 Pulse 81 08/22/20 09:00 Resp 11 L 08/22/20 09:00 BP 87/42 08/22/20 09:00 Pulse Ox 98 08/22/20 09:00 Intake & Output 08/21/20 08/22/20 08/22/20 18:59 06:59 18:59 Intake Total 1196.490 260 100 Output Total 790 927 10 Balance 406.490 -667 90 Weight 62.233 kg 65.771 kg Intake: IV 339.0 20 0 CO/CI 20 Lactated Ringers 1,000 ml 280 20 0 @ 20 mls/hr IV .Q24H JACKI Rx#:[id number] Nitroglycerin-D5w Pmx 50 3.0 mg In Dextrose/Water 1 250ml.bag @ 5 MCG/MIN 1.5 mls/hr IV .Q24H JACKI Rx#: [id number] Pressure bag 0.9 36 Intake, IV Titration 27.490 Amount Insulin Regular 100 unit 27.490 In Sodium Chloride 0.9% 100 ml @ Per Protocol IV .Q0M JACKI Rx#:[id number] Oral 830 240 100 Output: Chest Tube Drainage 325 222 10 Bilateral Anterior Chest 130 Left Lateral Chest 65 176 10 Mediastinal 50 Right Lateral Chest 80 46 Urine 465 705 0 Other: Voiding Method Indwelling Catheter Indwelling Catheter ABP, PAP, CO, CI - Last Documented Arterial Blood Pressure 134/55 Pulmonary Artery Pressure 32/15 Cardiac Output 7.1 Cardiac Index 4.1 - Constitutional General appearance: Present: average body habitus, cooperative, no acute distress - EENT Eyes: Present: normal appearance. Absent: scleral icterus ENT: Present: hearing grossly normal - Neck Details: Neck is supple, no JVD, no lymphadenopathy. - Respiratory Details: Lung sounds essentially clear throughout, diminished to his bilateral bases. Respirations are symmetrical and nonlabored. No wheezes, rhonchi or crackles. Oxygen saturation are 98% on room air and he is achieving 1000 mL on his incentive spirometry with encouragement. Left and right pleural chest tubes remain in place to low continuous wall suction -20 cm H2O. No air leak is present. Draining thin serosanguineous drainage with 115 mL of drainage in the last 8 hours and 250 mL output in the last 24 hours from his left pleural chest tube. 30 mL of drainage in the last 8 hours and 160 L output in the last 24 hours from his right pleural chest tube. - Cardiovascular Details: Regular rhythm and rate. S1 and S2 present, negative for S3, gallop or murmur. Sternum is stable. Bedside telemetry showing normal sinus rhythm heart rate 78 BPM. Heart hugger is in place and he is demonstrating appropriate use. Knee- high RUTHANN hose and sequential compression devices in place was bilateral lower extremities. No edema present. - Gastrointestinal Gastrointestinal Comment(s): Abdomen is soft, nontender and nondistended. Active bowel sounds present in all 4 abdominal quadrants. No guarding or rigidity. No organomegaly appreciated. Tolerating oral intake. Passing flatus. - Genitourinary Genitourinary Comment(s): Continues to void. 585 mL of urine output in the last 8 hours. - Integumentary Integumentary Comment(s): Skin is warm and dry. No clubbing or cyanosis is present. Midline sternal incision is clean, dry and approximated. No drainage or redness is present. Previous Mediastinal chest tube site with scant serosanguineous drainage. Left lower extremity EVH site is clean, dry and approximated. No drainage or redness is present. Integumentary: Present: pale - Neurologic Neurologic: Present: CNII-XII intact - Musculoskeletal Musculoskeletal: Present: gait normal, generalized weakness, strength equal bilaterally - Psychiatric Psychiatric: Present: A&O x's 3, appropriate affect, intact judgment & insight - Allied health notes Allied health notes reviewed: nursing - Labs CBC & Chem 7: 08/22/20 04:41 08/22/20 04:41 Labs: Abnormal Lab Results - Last 24 Hours (Table) 08/21/20 08/21/20 08/21/20 Range/Units 10:15 11:22 12:42 RBC (4.30-5.90) m/uL Hgb (13.0-17.5) gm/dL Hct (39.0-53.0) % RDW (11.5-15.5) % Sodium (137-145) mmol/L BUN (9-20) mg/dL Creatinine (0.66-1.25) mg/dL Glucose (74-99) mg/dL POC Glucose (mg/dL) 208 H 185 H 147 H (75-99) mg/dL Calcium (8.4-10.2) mg/dL Magnesium (1.6-2.3) mg/dL Total Protein (6.3-8.2) g/dL Albumin (3.5-5.0) g/dL Crossmatch 08/21/20 08/21/20 08/21/20 Range/Units 13:34 14:54 15:59 RBC (4.30-5.90) m/uL Hgb (13.0-17.5) gm/dL Hct (39.0-53.0) % RDW (11.5-15.5) % Sodium (137-145) mmol/L BUN (9-20) mg/dL Creatinine (0.66-1.25) mg/dL Glucose (74-99) mg/dL POC Glucose (mg/dL) 244 H 291 H 260 H (75-99) mg/dL Calcium (8.4-10.2) mg/dL Magnesium (1.6-2.3) mg/dL Total Protein (6.3-8.2) g/dL Albumin (3.5-5.0) g/dL Crossmatch 08/21/20 08/21/20 08/21/20 Range/Units 17:07 20:31 21:57 RBC (4.30-5.90) m/uL Hgb (13.0-17.5) gm/dL Hct (39.0-53.0) % RDW (11.5-15.5) % Sodium (137-145) mmol/L BUN (9-20) mg/dL Creatinine (0.66-1.25) mg/dL Glucose (74-99) mg/dL POC Glucose (mg/dL) 201 H 378 H 447 H (75-99) mg/dL Calcium (8.4-10.2) mg/dL Magnesium (1.6-2.3) mg/dL Total Protein (6.3-8.2) g/dL Albumin (3.5-5.0) g/dL Crossmatch 08/21/20 08/22/20 08/22/20 Range/Units 23:14 00:15 04:41 RBC (4.30-5.90) m/uL Hgb (13.0-17.5) gm/dL Hct (39.0-53.0) % RDW (11.5-15.5) % Sodium (137-145) mmol/L BUN (9-20) mg/dL Creatinine (0.66-1.25) mg/dL Glucose (74-99) mg/dL POC Glucose (mg/dL) 439 H 394 H (75-99) mg/dL Calcium (8.4-10.2) mg/dL Magnesium (1.6-2.3) mg/dL Total Protein (6.3-8.2) g/dL Albumin (3.5-5.0) g/dL Crossmatch See Detail 08/22/20 08/22/20 Range/Units 04:41 04:41 RBC 1.74 L (4.30-5.90) m/uL Hgb 5.6 L* (13.0-17.5) gm/dL Hct 16.4 L* (39.0-53.0) % RDW 15.8 H (11.5-15.5) % Sodium 130 L (137-145) mmol/L BUN 39 H (9-20) mg/dL Creatinine 2.68 H (0.66-1.25) mg/dL Glucose 136 H (74-99) mg/dL POC Glucose (mg/dL) (75-99) mg/dL Calcium 7.8 L (8.4-10.2) mg/dL Magnesium 2.4 H (1.6-2.3) mg/dL Total Protein 4.5 L (6.3-8.2) g/dL Albumin 2.4 L (3.5-5.0) g/dL Crossmatch - Imaging and Cardiology Chest x-ray: report reviewed, image reviewed Assessment and Plan Assessment: 1. Triple-vessel coronary artery disease, status post triple vessel coronary artery bypass grafting surgery. 2. Non-STEMI this admission 2. History of coronary artery disease with stent placement to the right coronary artery in 2004 4. Hypertension 5. Hyperlipidemia, treated, cholesterol 161, LDL 85 6. Type 1 insulin-dependent diabetes with insulin pump in place and peripheral neuropathy, hemoglobin A1c 8.1% 7. Chronic kidney disease stage IV with chronic anemia 8. Current tobacco dependence, FEV1 78% of predicted 9. Chronic right foot wound with MRSA infection in 2014 10. History of peripheral vascular disease with left second and third toe amputation 11. Dupuytren's contracture to bilateral hands 12. Occasional EtOH use, 1-2 drinks weekly 13. Occasional marijuana use 14. Family history of premature coronary artery disease with both father and brother having CABG in their early 50s 15. Both parents from brain aneurysm in their 70s 16. Bilateral internal carotid artery stenosis, right 99%, left 70% per angiogram Plan: 1. Continue aspirins, statin, Plavix, and beta jaxon. Will increase metoprolol tartrate as tolerated. 2. Right pleural chest tube removed without incident. Vaseline impregnated gauze to cover, 4 x 4 gauze to cover and secured with tape. 3. Continue to encourage incentive spirometry 10 times every hour while awake. Bronchodilators per pulmonology/critical care management. 4. Increase activity, ambulate as tolerated. PT/OT/cardiac rehab following. 5. Will monitor daily labs and chest x-rays. Electrolyte replacement per protocol. 6. GI/DVT prophylaxis 7. Insulin management per primary care service. The patient has his own insulin pump in place. 8. Pain control with current medication regimen. 9. Hemoglobin 5.6 this morning, we will transfuse 1 unit of PRBCs followed by Lasix 20 mg IV 1 dose. Recheck H&H post transfusion. 10. Keep left pleural chest tube in place to low continuous wall suction -20 cm H2O. 11. Continue to monitor Daily weights. 12. Avoid nephrotoxic agents. Diuretic recommendations and management per nephrology. 13. More recommendations to follow based on patient's clinical course. Time with Patient: Greater than 30
--- NOTE | 2020-08-22 09:53 | P.PN ---
Subjective Patient is seen in follow-up for acute kidney injury on chronic kidney disease. Status post CABG on August 20. Renal function worse today. Hemoglobin down to 5.6. Awake and alert. No chest pain or shortness of breath. Feels tired. Vital signs are stable. General: No JVD. HEENT: Head exam is unremarkable. LUNGS: Breath sounds decreased. Chest tubes noted. HEART: Rate and Rhythm are regular. ABDOMEN: Soft, nontender. EXTREMITITES: No edema. Objective - Vital Signs Vital signs: Vital Signs Temp 98.7 F 08/22/20 08:00 Pulse 81 08/22/20 09:00 Resp 11 L 08/22/20 09:00 BP 87/42 08/22/20 09:00 Pulse Ox 98 08/22/20 09:00 Intake & Output 08/21/20 08/22/20 08/22/20 18:59 06:59 18:59 Intake Total 1196.490 260 100 Output Total 790 927 10 Balance 406.490 -667 90 Weight 62.233 kg 65.771 kg Intake: IV 339.0 20 0 CO/CI 20 Lactated Ringers 1,000 ml 280 20 0 @ 20 mls/hr IV .Q24H JACKI Rx#:[id number] Nitroglycerin-D5w Pmx 50 3.0 mg In Dextrose/Water 1 250ml.bag @ 5 MCG/MIN 1.5 mls/hr IV .Q24H JACKI Rx#: [id number] Pressure bag 0.9 36 Intake, IV Titration 27.490 Amount Insulin Regular 100 unit 27.490 In Sodium Chloride 0.9% 100 ml @ Per Protocol IV .Q0M JACKI Rx#:[id number] Oral 830 240 100 Output: Chest Tube Drainage 325 222 10 Bilateral Anterior Chest 130 Left Lateral Chest 65 176 10 Mediastinal 50 Right Lateral Chest 80 46 Urine 465 705 0 Other: Voiding Method Indwelling Catheter Indwelling Catheter ABP, PAP, CO, CI - Last Documented Arterial Blood Pressure 134/55 Pulmonary Artery Pressure 32/15 Cardiac Output 7.1 Cardiac Index 4.1 - Labs CBC & Chem 7: 08/22/20 04:41 08/22/20 04:41 Labs: Abnormal Lab Results - Last 24 Hours (Table) 08/21/20 08/21/20 08/21/20 Range/Units 10:15 11:22 12:42 RBC (4.30-5.90) m/uL Hgb (13.0-17.5) gm/dL Hct (39.0-53.0) % RDW (11.5-15.5) % Sodium (137-145) mmol/L BUN (9-20) mg/dL Creatinine (0.66-1.25) mg/dL Glucose (74-99) mg/dL POC Glucose (mg/dL) 208 H 185 H 147 H (75-99) mg/dL Calcium (8.4-10.2) mg/dL Magnesium (1.6-2.3) mg/dL Total Protein (6.3-8.2) g/dL Albumin (3.5-5.0) g/dL Crossmatch 08/21/20 08/21/20 08/21/20 Range/Units 13:34 14:54 15:59 RBC (4.30-5.90) m/uL Hgb (13.0-17.5) gm/dL Hct (39.0-53.0) % RDW (11.5-15.5) % Sodium (137-145) mmol/L BUN (9-20) mg/dL Creatinine (0.66-1.25) mg/dL Glucose (74-99) mg/dL POC Glucose (mg/dL) 244 H 291 H 260 H (75-99) mg/dL Calcium (8.4-10.2) mg/dL Magnesium (1.6-2.3) mg/dL Total Protein (6.3-8.2) g/dL Albumin (3.5-5.0) g/dL Crossmatch 08/21/20 08/21/20 08/21/20 Range/Units 17:07 20:31 21:57 RBC (4.30-5.90) m/uL Hgb (13.0-17.5) gm/dL Hct (39.0-53.0) % RDW (11.5-15.5) % Sodium (137-145) mmol/L BUN (9-20) mg/dL Creatinine (0.66-1.25) mg/dL Glucose (74-99) mg/dL POC Glucose (mg/dL) 201 H 378 H 447 H (75-99) mg/dL Calcium (8.4-10.2) mg/dL Magnesium (1.6-2.3) mg/dL Total Protein (6.3-8.2) g/dL Albumin (3.5-5.0) g/dL Crossmatch 08/21/20 08/22/20 08/22/20 Range/Units 23:14 00:15 04:41 RBC (4.30-5.90) m/uL Hgb (13.0-17.5) gm/dL Hct (39.0-53.0) % RDW (11.5-15.5) % Sodium (137-145) mmol/L BUN (9-20) mg/dL Creatinine (0.66-1.25) mg/dL Glucose (74-99) mg/dL POC Glucose (mg/dL) 439 H 394 H (75-99) mg/dL Calcium (8.4-10.2) mg/dL Magnesium (1.6-2.3) mg/dL Total Protein (6.3-8.2) g/dL Albumin (3.5-5.0) g/dL Crossmatch See Detail 08/22/20 08/22/20 Range/Units 04:41 04:41 RBC 1.74 L (4.30-5.90) m/uL Hgb 5.6 L* (13.0-17.5) gm/dL Hct 16.4 L* (39.0-53.0) % RDW 15.8 H (11.5-15.5) % Sodium 130 L (137-145) mmol/L BUN 39 H (9-20) mg/dL Creatinine 2.68 H (0.66-1.25) mg/dL Glucose 136 H (74-99) mg/dL POC Glucose (mg/dL) (75-99) mg/dL Calcium 7.8 L (8.4-10.2) mg/dL Magnesium 2.4 H (1.6-2.3) mg/dL Total Protein 4.5 L (6.3-8.2) g/dL Albumin 2.4 L (3.5-5.0) g/dL Crossmatch Assessment and Plan Plan: Assessment: 1. Acute kidney injury secondary to ATN post CABG/acute blood loss anemia and hypotension. Renal function worse. Creatinine 2.68 today. 2. Chronic kidney disease stage IIIB secondary to diabetic kidney disease. Creatinine 1.81 as of 02/01/2020. 3. Coronary artery disease status post cardiac catheterization on August 13. Has triple-vessel disease. Status post CABG 08/20/2020. 4. Metabolic acidosis secondary to acute kidney injury and IV fluids. Improved. Maintained on oral bicarbonate. 5. Anemia of chronic kidney disease maintained on Aranesp. Mild iron deficien cy noted - status post IV iron August 18. Also received blood transfusion this admission. Hemoglobin 5.6 this morning. 6. Hypertension with chronic kidney disease. Blood pressure has been on the l ower side. 7. Hypocalcemia secondary to acute kidney injury. Status post placement. Corrected calcium normal. 8. Hypomagnesemia from poor intake. status post replacement. Resolved. 9. Mild volume overload. Plan: Scheduled to receive a unit of blood today. Lasix 20 mg after blood transfusion completed. Hemoglobin will be repeated again this afternoon. Encouraged oral intake. Continue to monitor renal function and urine output. Avoid nephrotoxins.
[2020-08-22] MEDS: SODIUM BICARBONATE TAB 650 MG TAB PO SCH ×3 (10:19→21:13)
[2020-08-22] MEDS: ASPIRIN 325 MG TAB PO SCH (10:19)
[2020-08-22] MEDS: CLOPIDOGREL 75 MG TAB PO SCH (10:19)
[2020-08-22] MEDS: ATORVASTATIN 80 MG TAB PO SCH (10:19)
[2020-08-22] MEDS: LACTATED RINGERS 1,000 ML IV SCH (10:20)
--- NOTE | 2020-08-22 10:32 | P.PN ---
Subjective Progress Note Date: 08/22/20 HISTORY OF PRESENT ILLNESS 59-year-old male one of Dr. Roach's patient with past medical history of diabe zach on insulin pump, history of hypertension, hyperlipidemia, chronic neuropathy who is also noted to have coronary artery disease post PCI and stent placement back in 2004 was also has been having chronic kidney disease taste for. Patient presented to the emergency department today 08/13/2020 complaining of body ache all over his body along with numbness with worsening shortness of breath with n onspecific chest tightness or pressure and claims his neuropathy has been a lot worse he could not feel his feet and hands. His blood sugar has been slightly bit elevated as well. Patient was giving morphine in [facility] apartment started on hydration surprisingly had significant elevated troponin at 7.4 with lactic acid [place] 4[place]4 [place] [address] with CRP of 5 d-dimer 0.6, EKG showed diffuse ST depression in the anterolateral leads with his current symptom with her kidney function is a lot worse initially try to do conservative management patient kept having severe symptoms lab specialist with Dr. Rivera surprisingly had multiple vessel disease with 95% blockage in the mid LAD 60-70% blockage of the OM1 100% blockage of the small OM to and 80% mid circumflex with 85% of mid RCA no angioplasty was require the patient will be started on aggressive risk factor modification and management along with consult cardiothoracic for possible CABG. 08/14: Patient evaluated this morning, resting in bed, in no acute distress. Patient is currently undergoing testing for possible coronary artery bypass s urgery with the cardiothoracic team. Patient had carotid ultrasound that showed severe right ICA stenosis and moderate left ICA stenosis. Patient became very argumentative and agitated this morning after discussion regarding his insulin pump. Informed patient that the ICU nurse could not go to his pharmacy to roller picker insulin refills for his insulin pump and family would have to make arrangements to do this. If patient and family are agreeable to this and patient has a working insulin pump with the refill of insulin, patient may use his pump to manage his own sugar. 08/15: Patient remained ICU, had severe stenosis of the right carotid artery might need carotid endarterectomy, in the meanwhile with the use of dye and his kidney function currently is not able to go for CT of the neck will be waiting until Tuesday. Cardiothoracic surgery indicated that he need multi-vessel CABG and the same time might require carotid endarterectomy the same time such an arrangement can be probably done early next week. He seen nephrology kidney function slightly better today. 08/16 patient remains in ICU. Underwent CT of the chest today with CTA neck pending. Patient denies any symptoms of chest pain or shortness of breath. Vitals are stable with temp of 98.5 pulse 85 respiratory rate 13 blood pressure 160/104. Blood work suggesting hemoglobin stable at 7.1, sodium 135 creatinine 2.13 BUN 35 CO2 21 chloride 114 blood sugar 69 this morning. Patient continues to use his own insulin pump . Patient agrees on removing the insulin pump close to the surgery. 08/17 patient examined bedside on the floor. Denies any chest pain or shortness of breath. Denies any dizziness or change in mental status. Vitals suggests a temp of 97.8 pulse 85 respiratory rate 18 blood pressure 151/70. assessed sodium 135 chloride 114 CO2 of 21 creatinine improved to 1.93. BUN improved to 28. CT neck with contrast to be completed today. Heparin drip discontinued. Continue IV fluids post CT with contrast 48 hours to prevent contrast-induced nephropathy 08/18: Patient states he is feeling better today. He has been cooperative. CAT scan angiogram of the neck revealed significant stenosis of the proximal right internal carotid artery. Plan to add consult with vascular surgery for evaluation. He denies having any chest pain or shortness of breath. No lightheadedness or dizziness. Nephrology is soft IV fluids. IV iron has been ordered 08/19: Yesterday afternoon, patient underwent bilateral carotid angiography with Dr. Rivera which found 99% right ICA stenosis and 70% left. Vascular surgery is on consult. Cardiothoracic surgery is planning on CABG for tomorrow. There is no plan for carotid artery intervention during this hospitalization. The patient denies any chest pain or shortness of breath. monitor and storage bin tender is sinus rhythm. Repeat blood work reveals hemoglobin of 6.7 potassium 3.4. Calcium 6.2. Magnesium 1.2. Cardiothoracic surgery has addressed electrolyte replacements. One unit of packed RBCs for transfusion ordered. 08/20: Patient has gone for CABG. 08/21: Patient is status post off-pump CABG 3 with REID to LAD, saphenous vein grafts to first obtuse marginal and right coronary arteries, exclusion of left atrial appendage with 35 mm AtriCure clip. Patient was successfully extubated yesterday afternoon. He has a mediastinal, left and right pleural chest tubes in place. He is seen this morning intensive care unit, sitting up in a recliner. He has eating his breakfast with no nausea vomiting. He states his chest as feeling sore. He is using incentive spirometry of reaching 1000 miles. Repeat chest x-ray reveals minimal bilateral apical pneumothoraces. Bibasilar infiltrates. Hemoglobin is 6.5 and patient is being transfused 1 unit packed RBCs. Blood sugar running between 101 and 136 and patient states he has a new sensor for his insulin pump for today. He has been afebrile, heart rate 85, blood pressure 130/53. monitor and storage bin tender is a sinus rhythm. Other blood work reveals WBC 7.2, platelet count 161. Sodium 131, potassium 4.5, chloride 107, CO2 22, BUN 25 and creatinine 2.09. Patient was ordered for 1 dose of IV Lasix 20 mg today. 08/22: Remains in the intensive care unit. He is complaining of feeling tired cold and fatigued. He is not eating or drinking very well. He denies chest pain and shortness of breath. Ensure has been ordered. Hemoglobin today is 5.6 and transfusion has been ordered. BUN 39 creatinine 2.68. Sodium 130. Blood sugar this morning as 76 but patient was in the 400s yesterday afternoon. He is status post 1 dose of Ferrlecit yesterday and was started on Aranesp. Repeat chest x-ray revealed bilateral consolidation and pleural effusion stable. Postop changes stable with 5% left apical pneumothorax. monitor and storage bin tender is a sinus rhythm. Patient has been afebrile, heart rate 80, blood pressure 105/72, pulse ox 99% on room air. REVIEW OF SYSTEMS CONSTITUTIONAL: Well-developed no acute respiratory distress. No fever. No chills. Reports fatigue. EYES: No icterus sclerae, no conjunctivitis. EARS, NOSE, MOUTH, THROAT, and FACE: No sore throat, lymphadenopathy, carotid bruits or deformity. RESPIRATORY: No SOB cough or wheezes. CARDIOVASCULAR: Reports mild chest discomfort, Palpitation, PND, Orthopnea, or angina. GASTROINTESTINAL: No Abd pain, Nausea or vomiting, no Diarrhea or constipation, No GI Bleed, no distention or masses. Reports loss of appetite. GENITOURINARY: Negative for Hematuria or UTI, no kidney stones. INTEGUMENT/BREAST: Negative for any muscular injury with mild osteoarthritis.. HEMATOLOGIC/LYMPHATIC: Negative for bleed or purpura. MUSCULOSKELTAL: Negative for Myalgia or arthralgia. NEURLOGICAL: No LOC, Sz or syncope, blurred vision dizziness or abnormality.. BEHAVIORAL/PSYCH: Negative. ENDOCRINE: Negative. PHYSICAL EXAMINATION Gen: This is a 59-year-old male. He is resting in chair and appears to be comfortable. HEENT: Head is atraumatic, normocephalic. Pupils equal, round. Sclerae is anicteric. NECK: Supple. No JVD. No lymphadenopathy. No thyromegaly. LUNGS: Clear to auscultation. No wheezes or rhonchi. No intercostal retractions. Chest tubes in place. HEART: Regular rate and rhythm. No murmur. ABDOMEN: Soft. Bowel sounds are present. No masses. No tenderness. EXTREMITIES: No pedal edema. No calf tenderness. NEUROLOGICAL: Patient is awake, alert and oriented x3. Cranial nerves 2 through 12 are grossly intact. ASSESSMENT AND PLAN 1. Acute non-ST elevated myocardial infarction. Patient is status post heart catheterization revealing severe coronary artery disease. Status post off-pump CABG 3 with REID to LAD, saphenous vein grafts to first obtuse marginal and right coronary arteries, exclusion of left atrial appendage with 35 mm AtriCure clip. Continue current management per cardiothoracic team. 2. Acute kidney injury with stage IV chronic kidney disease. Nephrology consult appreciated. 3. Severe carotid artery stenosis, right. Bilateral carotid angiography revealed 99% right internal carotid artery stenosis and 70% left internal caroti d artery stenosis. Vascular surgery consult appreciated and signed off. 4. Diabetes mellitus type 1, on insulin pump. Diabetes uncontrolled with hyperglycemia. 5. Hypertension. Continue Lopressor. 6. Hyperlipidemia. Continue atorvastatin 80 mg daily. 7. Chronic advanced diabetic peripheral neuropathy: Patient should be on at least a starter of neuropathy medication like gabapentin or Lyrica something highly suggested to be done as an outpatient. 8. Anemia of chronic kidney disease with acute blood loss anemia. Transfuse 1 unit of packed RBCs today. Continue Aranesp, ferrous sulfate, status post Ferrlecit infusion. 9. Chronic tobacco use and dependence. Smoking cessation. 10. Peripheral vascular occlusive disease. 11. History of coronary artery disease with previous stent placement in the proximal and mid RCA in 2004. Continue as in #1. 12. DVT prophylaxis. 13. GI prophylaxis. Protonix. Discharge plan: Most likely home with homecare. Impression and plan of care have been directed as dictated by the signing physician. Cecille Marcum nurse practitioner acting as scribe for signing physician. Objective - Vital Signs Vital signs: Vital Signs Temp 98.7 F 08/22/20 08:00 Pulse 81 08/22/20 09:00 Resp 11 L 08/22/20 09:00 BP 87/42 08/22/20 09:00 Pulse Ox 98 08/22/20 09:00 Intake & Output 08/21/20 08/22/20 08/22/20 18:59 06:59 18:59 Intake Total 1196.490 260 100 Output Total 790 927 10 Balance 406.490 -667 90 Weight 62.233 kg 65.771 kg Intake: IV 339.0 20 0 CO/CI 20 Lactated Ringers 1,000 ml 280 20 0 @ 20 mls/hr IV .Q24H JACKI Rx#:[id number] Nitroglycerin-D5w Pmx 50 3.0 mg In Dextrose/Water 1 250ml.bag @ 5 MCG/MIN 1.5 mls/hr IV .Q24H JACKI Rx#: [id number] Pressure bag 0.9 36 Intake, IV Titration 27.490 Amount Insulin Regular 100 unit 27.490 In Sodium Chloride 0.9% 100 ml @ Per Protocol IV .Q0M JACKI Rx#:[id number] Oral 830 240 100 Output: Chest Tube Drainage 325 222 10 Bilateral Anterior Chest 130 Left Lateral Chest 65 176 10 Mediastinal 50 Right Lateral Chest 80 46 Urine 465 705 0 Other: Voiding Method Indwelling Catheter Indwelling Catheter ABP, PAP, CO, CI - Last Documented Arterial Blood Pressure 134/55 Pulmonary Artery Pressure 32/15 Cardiac Output 7.1 Cardiac Index 4.1 - Labs CBC & Chem 7: 08/22/20 04:41 08/22/20 04:41 Labs: Abnormal Lab Results - Last 24 Hours (Table) 08/21/20 08/21/20 08/21/20 Range/Units 10:15 11:22 12:42 RBC (4.30-5.90) m/uL Hgb (13.0-17.5) gm/dL Hct (39.0-53.0) % RDW (11.5-15.5) % Sodium (137-145) mmol/L BUN (9-20) mg/dL Creatinine (0.66-1.25) mg/dL Glucose (74-99) mg/dL POC Glucose (mg/dL) 208 H 185 H 147 H (75-99) mg/dL Calcium (8.4-10.2) mg/dL Magnesium (1.6-2.3) mg/dL Total Protein (6.3-8.2) g/dL Albumin (3.5-5.0) g/dL Crossmatch 08/21/20 08/21/20 08/21/20 Range/Units 13:34 14:54 15:59 RBC (4.30-5.90) m/uL Hgb (13.0-17.5) gm/dL Hct (39.0-53.0) % RDW (11.5-15.5) % Sodium (137-145) mmol/L BUN (9-20) mg/dL Creatinine (0.66-1.25) mg/dL Glucose (74-99) mg/dL POC Glucose (mg/dL) 244 H 291 H 260 H (75-99) mg/dL Calcium (8.4-10.2) mg/dL Magnesium (1.6-2.3) mg/dL Total Protein (6.3-8.2) g/dL Albumin (3.5-5.0) g/dL Crossmatch 08/21/20 08/21/20 08/21/20 Range/Units 17:07 20:31 21:57 RBC (4.30-5.90) m/uL Hgb (13.0-17.5) gm/dL Hct (39.0-53.0) % RDW (11.5-15.5) % Sodium (137-145) mmol/L BUN (9-20) mg/dL Creatinine (0.66-1.25) mg/dL Glucose (74-99) mg/dL POC Glucose (mg/dL) 201 H 378 H 447 H (75-99) mg/dL Calcium (8.4-10.2) mg/dL Magnesium (1.6-2.3) mg/dL Total Protein (6.3-8.2) g/dL Albumin (3.5-5.0) g/dL Crossmatch 08/21/20 08/22/20 08/22/20 Range/Units 23:14 00:15 04:41 RBC (4.30-5.90) m/uL Hgb (13.0-17.5) gm/dL Hct (39.0-53.0) % RDW (11.5-15.5) % Sodium (137-145) mmol/L BUN (9-20) mg/dL Creatinine (0.66-1.25) mg/dL Glucose (74-99) mg/dL POC Glucose (mg/dL) 439 H 394 H (75-99) mg/dL Calcium (8.4-10.2) mg/dL Magnesium (1.6-2.3) mg/dL Total Protein (6.3-8.2) g/dL Albumin (3.5-5.0) g/dL Crossmatch See Detail 08/22/20 08/22/20 Range/Units 04:41 04:41 RBC 1.74 L (4.30-5.90) m/uL Hgb 5.6 L* (13.0-17.5) gm/dL Hct 16.4 L* (39.0-53.0) % RDW 15.8 H (11.5-15.5) % Sodium 130 L (137-145) mmol/L BUN 39 H (9-20) mg/dL Creatinine 2.68 H (0.66-1.25) mg/dL Glucose 136 H (74-99) mg/dL POC Glucose (mg/dL) (75-99) mg/dL Calcium 7.8 L (8.4-10.2) mg/dL Magnesium 2.4 H (1.6-2.3) mg/dL Total Protein 4.5 L (6.3-8.2) g/dL Albumin 2.4 L (3.5-5.0) g/dL Crossmatch
--- NOTE | 2020-08-22 12:01 | P.PN ---
Subjective Progress Note Date: 08/22/20 Principal diagnosis: Acute non-ST elevation myocardial infarction and severe coronary artery disease Patient was reevaluated today on 08/18/2020, patient is waiting for final decision regarding his surgery. He was found to have significant carotid artery disease, and decision is yet to be made regarding his carotid surgery and CABG. From the pulmonary perspective, patient was seen by us, and we'll clear him for surgery. Patient has no active pulmonary symptoms whatsoever. Labs today showed hemoglobin of 7.3 WBC count is 4.8 electrolytes are normal renal profile is abnormal with a BUN of 23 creatinine is 1.92. Reevaluated today on 08/19/2020, patient is scheduled to have off pump coronary artery bypass surgery tomorrow by Dr. Chávez. Patient was already seen by vascular surgery, and the plan to eventually perform carotid endarterectomy on this patient in the near future but definitely after his CABG. Patient has bilateral internal carotid stenosis with right greater than left. Right ICA is 99%, left ICA is 70% stenosis. Again his carotid surgery will likely be scheduled in 4-6 weeks. Patient was reevaluated today on 08/20/2020, patient just came back to the ICU, he is off pump CABG 3 with REID to LAD, saphenous vein graft to first obtuse marginal and RCA arteries exclusion of left atrial appendage with 35 mm articure clip. Patient is in the ICU, he is now on mechanical ventilation, his ventilator settings are assist control rate of 10 increased at 12, tidal volume is 500, FiO2 is 40%, and PEEP is 5.ABG showed a pO2 of over 400 pCO2 of 47 pH of 7.31. Hence his rate was increased up to 12. Postoperative chest x-ray showed postsurgical changes with small tiny left apical pneumothorax but there is a chest tube in place, and by basilar atelectasis, expected postoperatively. Reevaluated today on 08/21/2020, patient remains in the ICU, he is status post off-pump CABG 3 with REID to LAD, saphenous vein graft to first obtuse marginal and right coronary arteries. Patient was extubated yesterday uneventfully at 16:22. And his post extubation course has been uneventful. Patient is achieving 1000 mL on his incentive spirometer. He is in sinus rhythm, hemodynamically stable, cardiac output is 6.1 index is 3.5. CVP is 6. Chest tube and mediastinal tube on low suction, no air leak is noted. Serosanguineous drainage is noted. No major issues in the last 12 hours Patient was reevaluated today on 08/22/2020, he is postoperative day #2, off pump CABG with REID to LAD and saphenous vein graft to obtuse marginal and right coronary artery. Patient is doing fairly well today, however his hemoglobin is down to 5.6, and he is to receive at least 1 unit of packed RBCs today. Chest x-ray showed minimal postoperative changes and atelectasis, expected. Patient is doing well with incentive spirometry. Renal functioning remains marginal wi th a BUN of 39 and creatinine of 2.68, that being addressed by nephrology. Overall, clinically the patient is doing fairly well Objective - Vital Signs Vital signs: Vital Signs Temp 98.4 F 08/22/20 10:47 Pulse 78 08/22/20 11:00 Resp 16 08/22/20 11:00 BP 99/53 08/22/20 11:00 Pulse Ox 98 08/22/20 11:00 Intake & Output 08/21/20 08/22/20 08/22/20 18:59 06:59 18:59 Intake Total 1196.490 260 100 Output Total 790 927 40 Balance 406.490 -667 60 Weight 62.233 kg 65.771 kg Intake: IV 339.0 20 0 CO/CI 20 Lactated Ringers 1,000 ml 280 20 0 @ 20 mls/hr IV .Q24H JACKI Rx#:[id number] Nitroglycerin-D5w Pmx 50 3.0 mg In Dextrose/Water 1 250ml.bag @ 5 MCG/MIN 1.5 mls/hr IV .Q24H JACKI Rx#: [id number] Pressure bag 0.9 36 Intake, IV Titration 27.490 Amount Insulin Regular 100 unit 27.490 In Sodium Chloride 0.9% 100 ml @ Per Protocol IV .Q0M JACKI Rx#:[id number] Oral 830 240 100 Blood Product 0 Rc As-1 Unit 0 [id number] Output: Chest Tube Drainage 325 222 40 Bilateral Anterior Chest 130 Left Lateral Chest 65 176 40 Mediastinal 50 Right Lateral Chest 80 46 Urine 465 705 0 Other: Voiding Method Indwelling Catheter Indwelling Catheter Urinal ABP, PAP, CO, CI - Last Documented Arterial Blood Pressure 134/55 Pulmonary Artery Pressure 32/15 Cardiac Output 7.1 Cardiac Index 4.1 - Exam Gen: This is a 59-year-old male. Sitting at a bedside chair, in no distress, on nasal cannula. HEENT: Head is atraumatic, normocephalic. Pupils equal, round. Sclerae is anicteric. NECK: Supple. No JVD. No lymphadenopathy. No thyromegaly. LUNGS: Symmetrical chest expansion, fine crackles at the bases.Left and right pleural chest tubes remain in place to low continuous wall suction -20 cm H2O. No air leak is present. Draining thin serosanguineous drainage with 115 mL of drainage in the last 8 hours and 250 mL output in the last 24 hours from his left pleural chest tube. 30 mL of drainage in the last 8 hours and 160 L output in the last 24 hours from his right pleural chest tube. HEART: Regular rate and rhythm. No murmur. Positive pericardial rub.current ABDOMEN: Soft. Bowel sounds are present. No masses. No tenderness. EXTREMITIES: No pedal edema. No calf tenderness. NEUROLOGICAL: Alert and oriented 3, no gross focal neurologic deficits. Psychiatric: Normal mood, affect and normal mental status examination - Labs CBC & Chem 7: 08/22/20 04:41 08/22/20 04:41 Labs: Abnormal Lab Results - Last 24 Hours (Table) 08/18/20 08/21/20 08/21/20 Range/Units 06:43 12:42 13:34 RBC (4.30-5.90) m/uL Hgb (13.0-17.5) gm/dL Hct (39.0-53.0) % RDW (11.5-15.5) % Sodium (137-145) mmol/L BUN (9-20) mg/dL Creatinine (0.66-1.25) mg/dL Glucose (74-99) mg/dL POC Glucose (mg/dL) 147 H 244 H (75-99) mg/dL Calcium (8.4-10.2) mg/dL Magnesium (1.6-2.3) mg/dL Total Protein (6.3-8.2) g/dL Albumin (3.5-5.0) g/dL Crossmatch See Detail 08/21/20 08/21/20 08/21/20 Range/Units 14:54 15:59 17:07 RBC (4.30-5.90) m/uL Hgb (13.0-17.5) gm/dL Hct (39.0-53.0) % RDW (11.5-15.5) % Sodium (137-145) mmol/L BUN (9-20) mg/dL Creatinine (0.66-1.25) mg/dL Glucose (74-99) mg/dL POC Glucose (mg/dL) 291 H 260 H 201 H (75-99) mg/dL Calcium (8.4-10.2) mg/dL Magnesium (1.6-2.3) mg/dL Total Protein (6.3-8.2) g/dL Albumin (3.5-5.0) g/dL Crossmatch 08/21/20 08/21/20 08/21/20 Range/Units 20:31 21:57 23:14 RBC (4.30-5.90) m/uL Hgb (13.0-17.5) gm/dL Hct (39.0-53.0) % RDW (11.5-15.5) % Sodium (137-145) mmol/L BUN (9-20) mg/dL Creatinine (0.66-1.25) mg/dL Glucose (74-99) mg/dL POC Glucose (mg/dL) 378 H 447 H 439 H (75-99) mg/dL Calcium (8.4-10.2) mg/dL Magnesium (1.6-2.3) mg/dL Total Protein (6.3-8.2) g/dL Albumin (3.5-5.0) g/dL Crossmatch 08/22/20 08/22/20 08/22/20 Range/Units 00:15 04:41 04:41 RBC 1.74 L (4.30-5.90) m/uL Hgb 5.6 L* (13.0-17.5) gm/dL Hct 16.4 L* (39.0-53.0) % RDW 15.8 H (11.5-15.5) % Sodium (137-145) mmol/L BUN (9-20) mg/dL Creatinine (0.66-1.25) mg/dL Glucose (74-99) mg/dL POC Glucose (mg/dL) 394 H (75-99) mg/dL Calcium (8.4-10.2) mg/dL Magnesium (1.6-2.3) mg/dL Total Protein (6.3-8.2) g/dL Albumin (3.5-5.0) g/dL Crossmatch See Detail 08/22/20 Range/Units 04:41 RBC (4.30-5.90) m/uL Hgb (13.0-17.5) gm/dL Hct (39.0-53.0) % RDW (11.5-15.5) % Sodium 130 L (137-145) mmol/L BUN 39 H (9-20) mg/dL Creatinine 2.68 H (0.66-1.25) mg/dL Glucose 136 H (74-99) mg/dL POC Glucose (mg/dL) (75-99) mg/dL Calcium 7.8 L (8.4-10.2) mg/dL Magnesium 2.4 H (1.6-2.3) mg/dL Total Protein 4.5 L (6.3-8.2) g/dL Albumin 2.4 L (3.5-5.0) g/dL Crossmatch Assessment and Plan Assessment: Impression: Status post off-pump CABG 3. Postoperative day #2 Acute non-ST elevation myocardial infarction Severe coronary artery disease. Severe carotid artery disease/right carotid artery stenosis may require surgery prior to CABG. Acute on chronic kidney disease. Type 1 diabetes. Benign essential hypertension. Chronic anemia of chronic kidney disease. Peripheral vessel occlusive disease. Tobacco dependence syndrome. Acute blood loss anemia secondary to surgery, expected. And there is also history of chronic anemia related to chronic kidney disease. Recommendation: Transfused to a hemoglobin of above 7. Continue incentive spirometry. Wean oxygen as tolerated. Continue to ambulate. Pain control. Continue beta blockers, statin, aspirin, and Plavix. Continue GI and DVT prophylaxis. Discontinue unnecessary lines and catheters.. We'll continue to follow. Time with Patient: Less than 30
[2020-08-22 12:08] LABS: Glucose,Whole Blood 102 mg/dL (75-99)
[2020-08-22 14:56] LABS: HCT 23.5 % (39.0-53.0); MCHC 33.6 g/dL (31.0-37.0); MCV 95.1 fL (80.0-100.0); Mean Platelet Volume 8.3; Platelet Count 222 k/uL (150-450); RBC 2.47 m/uL (4.30-5.90); RDW 15.7 % (11.5-15.5); WBC 11.2 k/uL (3.8-10.6)
[2020-08-22 15:03] LABS: HGB 7.9 gm/dL (13.0-17.5)
[2020-08-22 21:03] LABS: Glucose,Whole Blood 257 mg/dL (75-99)
[2020-08-22] MEDS: SENNOSIDES-DOCUSATE SODIUM 1 EACH TAB PO SCH (21:13)
[2020-08-23] MEDS: HYDROcodone/APAP 7.5-325MG 1 EACH TAB PO PRN ×2 (00:33→06:59)
[2020-08-23] MEDS: HEPARIN SODIUM,PORCINE 5,000 UNIT/ML 1 ML VIAL SQ SCH ×3 (00:35→15:42)
[2020-08-23 03:32] LABS: Albumin 2.5 g/dL (3.5-5.0); Calcium 7.9 mg/dL (8.4-10.2); Potassium 4.4 mmol/L (3.5-5.1); Total Bilirubin 0.5 mg/dL (0.2-1.3); Total Protein 4.8 g/dL (6.3-8.2)
[2020-08-23 03:36] LABS: Basophils % (A) 0 %; Eosinophils # (A) 0.3 k/uL (0-0.7); Eosinophils % (A) 4 %; HCT 20.2 % (39.0-53.0); Lymphocytes # (A) 0.8 k/uL (1.0-4.8); Lymphocytes % (A) 10 %; MCH 31.9 pg (25.0-35.0); MCHC 34.2 g/dL (31.0-37.0); MCV 93.2 fL (80.0-100.0); Mean Platelet Volume 8.2; Monocytes # (A) 0.6 k/uL (0-1.0); Monocytes % (A) 8 %; Neutrophils % (A) 77 %; Platelet Count 226 k/uL (150-450); RBC 2.17 m/uL (4.30-5.90); RDW 15.8 % (11.5-15.5); WBC 7.8 k/uL (3.8-10.6)
[2020-08-23 03:38] LABS: HGB 6.9 gm/dL (13.0-17.5)
[2020-08-23] MEDS: AMIODARONE 200 MG TAB PO SCH ×2 (06:58→20:29)
[2020-08-23] MEDS: METOPROLOL TARTRATE 50 MG TAB PO SCH ×2 (06:58→17:44)
--- NOTE | 2020-08-23 07:36 | XR ---
EXAMINATION TYPE: XR chest 1V portable DATE OF EXAM: 08/23/2020 COMPARISON: 08/22/2020 HISTORY: Postoperative TECHNIQUE: Single frontal view of the chest is obtained. FINDINGS: Right-sided chest tube is been no sizable pneumothorax. Patchy interstitial and basilar in filtrate and small effusion. Evidence of previous vertebroplasty. Postoperative changes seen. Left-si ded chest tube remains in position. There is a less than 5% left apical pneumothorax stable in appear ance. Heart size unchanged. Arthropathy of the right shoulder. IMPRESSION: 1. Correlate for mild CHF otherwise consider interstitial pneumonitis with underlying basilar infiltr ates and small effusions. 2. Stable less than 5% left apical pneumothorax.
[2020-08-23] MEDS ORDERED: DEXTROSE 5% IN WATER 100 ML with AMIODARONE 150 MG IV ONE (08:12)
[2020-08-23] MEDS: ASPIRIN 325 MG TAB PO SCH (08:16)
[2020-08-23] MEDS: FERROUS SULFATE 325 MG TAB PO SCH ×2 (08:17→15:42)
[2020-08-23] MEDS: PANTOPRAZOLE 40 MG TABLET PO SCH (08:17)
[2020-08-23] MEDS: ASCORBIC ACID 500 MG TAB PO SCH ×2 (08:17→15:42)
[2020-08-23] MEDS: SODIUM BICARBONATE TAB 650 MG TAB PO SCH ×3 (08:17→20:29)
[2020-08-23] MEDS: CLOPIDOGREL 75 MG TAB PO SCH (08:17)
[2020-08-23] MEDS: ATORVASTATIN 80 MG TAB PO SCH (08:17)
--- NOTE | 2020-08-23 08:45 | P.PN ---
Subjective Progress Note Date: 08/23/20 Principal diagnosis: Triple-vessel coronary artery disease, non-STEMI this admission, bilateral internal carotid artery stenosis, right 99%, left 70% per angiogram. 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 POD #3 Off-pump CABG 3 with REID to LAD, saphenous vein grafts to first obtuse marginal and right coronary arteries, exclusion of left atrial appendage with 35 mm AtriCure clip. Postoperative acute blood loss anemia, expected due to history of chronic anemia and hemodilution. Postoperative paroxysmal atrial fibrillation, unexpected The patient was seen in follow-up today 08/23/2020 at his bedside in the intensive care unit. Currently he is lying in bed and having his dressing change to his sternum and chest tube sites. Denies any complaints of shortness of breath although is complaining of some surgical type pain to his left chest tube insertion site. He remains hemodynamically stable and is currently on no inotropic pressure support. Yesterday his hemoglobin was 5.6 and hematocrit 16.4, he was transfused 1 unit of packed red blood cells and today his hemoglobin is 6.9. BUN is 48 and creatinine 2.64 today which is being followed by nephrology. Oxygen saturations are 97% on room air. He is achieving 1500 mL on his incentive spirometry with encouragement. His Ramirez catheter was discontinued yesterday and he is voiding adequate urine output with 600 mL of urine output in the last 8 hours. He reports he has been ambulating in the intensive care unit hallway and ambulated 225 feet yesterday with assistance from nursing staff. The patient went into atrial fibrillation with RVR throughout the night and was started on amiodarone. Currently his bedside telemetry showing atrial fibrillation heart rate 115 BPM. Objective - Vital Signs Vital signs: Vital Signs Temp 97.6 F 01/09/21 04:00 Pulse 116 H 08/23/20 06:00 Resp 14 08/23/20 06:00 BP 137/73 08/23/20 06:00 Pulse Ox 95 08/23/20 06:00 Intake & Output 08/22/20 08/23/20 08/23/20 18:59 06:59 18:59 Intake Total 1087 237 Output Total 770 1075 Balance 317 -838 Intake: IV 0 0 Lactated Ringers 1,000 ml 0 0 @ 20 mls/hr IV .Q24H [facility] Rx#:[id number] Oral 777 237 Blood Product 310 Rc As-1 Unit 310 [id number] Output: Chest Tube Drainage 120 25 Left Lateral Chest 120 25 Urine 650 1050 Other: Voiding Method Urinal Urinal ABP, PAP, CO, CI - Last Documented Arterial Blood Pressure 134/55 Pulmonary Artery Pressure 32/15 Cardiac Output 7.1 Cardiac Index 4.1 - Constitutional General appearance: Present: cooperative, no acute distress, thin - EENT Eyes: Present: poor dentition, normal appearance. Absent: scleral icterus ENT: Present: hearing grossly normal - Neck Details: Neck is supple, no JVD. - Respiratory Details: Lung sounds are essentially clear throughout, diminished to his bilateral bases with some few scattered crackles. No wheezes, or rhonchi. Respirations are symmetrical and nonlabored. Oxygen saturation are 97% on room air. Achieving 1500 mL on his incentive spirometry with encouragement. Left pleural chest tube remains in place to low continuous wall suction -20 cm H2O. No air leak is present. Draining thin serosanguineous drainage with 25 mL output in the last 8 hours and 150 mL output in the last 24 hours. - Cardiovascular Details: Irregular rhythm with a tachycardic rate. S1 and S2 present, negative for S3, gallop or murmur. Sternum is stable. Bedside telemetry showing atrial fibrillation heart rate 115 BPM. No edema present. Heart hugger is in place and he is demonstrating appropriate use. Knee-high RUTHANN hose and sequential compression devices in place to his bilateral lower extremities. - Gastrointestinal Gastrointestinal Comment(s): Abdomen is soft, nontender and nondistended. Active bowel sounds present in all 4 abdominal quadrants. No guarding or rigidity. No organomegaly appreciated. Tolerating oral intake. Patient's own insulin pump in place. - Genitourinary Genitourinary Comment(s): Continues to void clear yellow urine. 600 mL output in the last 8 hours. - Integumentary Integumentary Comment(s): Skin is warm and dry. No clubbing or cyanosis present. Midline sternal incision is clean, dry and approximated. No drainage or redness is present. Left lower extremity EVH site is clean, dry and approximate it. No drainage redness is present. - Neurologic Neurologic: Present: CNII-XII intact - Musculoskeletal Musculoskeletal: Present: gait normal, generalized weakness, strength equal bilaterally - Psychiatric Psychiatric: Present: A&O x's 3, appropriate affect, intact judgment & insight - Allied health notes Allied health notes reviewed: nursing - Labs CBC & Chem 7: 08/23/20 02:59 08/23/20 02:59 Labs: Abnormal Lab Results - Last 24 Hours (Table) 08/18/20 08/22/20 08/22/20 Range/Units 06:43 04:41 12:07 WBC (3.8-10.6) k/uL RBC (4.30-5.90) m/uL Hgb (13.0-17.5) gm/dL Hct (39.0-53.0) % RDW (11.5-15.5) % Lymphocytes # (1.0-4.8) k/uL Sodium (137-145) mmol/L BUN (9-20) mg/dL Creatinine (0.66-1.25) mg/dL POC Glucose (mg/dL) 102 H (75-99) mg/dL Calcium (8.4-10.2) mg/dL Alkaline Phosphatase (38-126) U/L Total Protein (6.3-8.2) g/dL Albumin (3.5-5.0) g/dL Crossmatch See Detail See Detail 08/22/20 08/22/20 08/23/20 Range/Units 14:30 21:01 02:59 WBC 11.2 H (3.8-10.6) k/uL RBC 2.47 L 2.17 L (4.30-5.90) m/uL Hgb 7.9 L D 6.9 L* (13.0-17.5) gm/dL Hct 23.5 L 20.2 L (39.0-53.0) % RDW 15.7 H 15.8 H (11.5-15.5) % Lymphocytes # 0.8 L (1.0-4.8) k/uL Sodium (137-145) mmol/L BUN (9-20) mg/dL Creatinine (0.66-1.25) mg/dL POC Glucose (mg/dL) 257 H (75-99) mg/dL Calcium (8.4-10.2) mg/dL Alkaline Phosphatase (38-126) U/L Total Protein (6.3-8.2) g/dL Albumin (3.5-5.0) g/dL Crossmatch 08/23/20 Range/Units 02:59 WBC (3.8-10.6) k/uL RBC (4.30-5.90) m/uL Hgb (13.0-17.5) gm/dL Hct (39.0-53.0) % RDW (11.5-15.5) % Lymphocytes # (1.0-4.8) k/uL Sodium 130 L (137-145) mmol/L BUN 48 H (9-20) mg/dL Creatinine 2.64 H (0.66-1.25) mg/dL POC Glucose (mg/dL) (75-99) mg/dL Calcium 7.9 L (8.4-10.2) mg/dL Alkaline Phosphatase 167 H (38-126) U/L Total Protein 4.8 L (6.3-8.2) g/dL Albumin 2.5 L (3.5-5.0) g/dL Crossmatch - Imaging and Cardiology Chest x-ray: report reviewed, image reviewed Assessment and Plan Assessment: 1. Triple-vessel coronary artery disease, status post triple vessel coronary artery bypass grafting surgery. 2. Non-STEMI this admission 2. History of coronary artery disease with stent placement to the right coronary artery in 2004 4. Hypertension 5. Hyperlipidemia, treated, cholesterol 161, LDL 85 6. Type 1 insulin-dependent diabetes with insulin pump in place and peripheral neuropathy, hemoglobin A1c 8.1% 7. Chronic kidney disease stage IV with chronic anemia 8. Current tobacco dependence, FEV1 78% of predicted 9. Chronic right foot wound with MRSA infection in 2014 10. History of peripheral vascular disease with left second and third toe amputation 11. Dupuytren's contracture to bilateral hands 12. Occasional EtOH use, 1-2 drinks weekly 13. Occasional marijuana use 14. Family history of premature coronary artery disease with both father and brother having CABG in their early 50s 15. Both parents from brain aneurysm in their 70s 16. Bilateral internal carotid artery stenosis, right 99%, left 70% per angiogram 17. Postoperative acute blood loss anemia, expected 18. Postoperative paroxysmal atrial fibrillation, unexpected Plan: 1. Continue aspirins, statin, Plavix, and beta jaxon. Will increase metoprolol tartrate as tolerated. 2. Left pleural chest tube removed without incident. Vaseline impregnated gauze to cover, 4 x 4 gauze to cover and secured with tape. 3. Continue to encourage incentive spirometry 10 times every hour while awake. Bronchodilators per pulmonology/critical care management. 4. Increase activity, ambulate as tolerated. PT/OT/cardiac rehab following. 5. Will monitor daily labs and chest x-rays. Electrolyte replacement per protocol. 6. GI/DVT prophylaxis 7. Insulin management per primary care service. The patient has his own insulin pump in place. 8. Pain control with current medication regimen. Once his left pleural chest tube has been discontinued continued we will discontinue the [place] and put him on acetaminophen 1000 mg by mouth every 6 hours when necessary pain. 9. Continue to monitor Daily weights. 10. Avoid nephrotoxic agents. Diuretic recommendations and management per nephrology. 11. Continue amiodarone 400 mg by mouth twice a day for atrial fib ablation p rophylaxis. 12. More recommendations to follow based on patient's clinical course. Time with Patient: Greater than 30
[2020-08-23] MEDS: IPRATROPIUM-ALBUTEROL 3 ML NEB INHALATION SCH ×4 (08:46→19:30)
[2020-08-23] MEDS: INSULIN PUMP MEAL BOLUS 1 UNIT MISC MISCELLANE SCH ×3 (09:15→20:20)
--- NOTE | 2020-08-23 09:22 | PN ---
PROGRESS NOTE Mr. Knowles 59-year-old male with a known history of coronary disease who underwent coronary bypass grafting. He is feeling well this morning. He is slightly dyspneic. He is in atrial fibrillation. He has been started on IV amiodarone. He denies any chest discomfort. No dizziness. He is not aware of the arrhythmia. He has no nausea, no vomiting. He is doing better with the incentive spirometry. He continued to be on the IV amiodarone. In addition to that he is on aspirin once a day Plavix 75 mg daily, metoprolol tartrate 50 mg twice a day. PHYSICAL EXAMINATION: Blood pressure running in the 100s with a heart rate in the 110s. LUNGS: With mild decrease in breath sounds at the bases. HEART: Irregular regular, S1, S2. No S3 with a systolic murmur. ABDOMEN: Soft, nontender. EXTREMITIES: No edema. LAB DATA: His hemoglobin 6.9. BUN and creatinine 48 and 2.64. His urine output has been stable. IMPRESSION: 1. Status post coronary artery bypass grafting. 2. Atrial fibrillation, new onset postoperatively. 3. Severe carotid obstructive disease, asymptomatic. 4. History of diabetes. 5. Chronic kidney disease. 6. Anemia. 7. History of tobacco use. RECOMMENDATION: From the cardiac standpoint, will continue on the IV amiodarone. Hopefully, returns to sinus mechanism and maintains sinus mechanism. If he continues to have recurrent episode of atrial fibrillation he will need to be evaluated for anticoagulation. In the meantime, will continue incentive spirometry, increase his level of activity and depending on his progress, further recommendation will be made. MMODL / IJN: [id number] /
--- NOTE | 2020-08-23 11:08 | P.PN ---
Subjective Progress Note Date: 08/23/20 HISTORY OF PRESENT ILLNESS 59-year-old male one of Dr. Roach's patient with past medical history of diabe zach on insulin pump, history of hypertension, hyperlipidemia, chronic neuropathy who is also noted to have coronary artery disease post PCI and stent placement back in 2004 was also has been having chronic kidney disease taste for. Patient presented to the emergency department today 08/13/2020 complaining of body ache all over his body along with numbness with worsening shortness of breath with n onspecific chest tightness or pressure and claims his neuropathy has been a lot worse he could not feel his feet and hands. His blood sugar has been slightly bit elevated as well. Patient was giving morphine in [facility] apartment started on hydration surprisingly had significant elevated troponin at 7.4 with lactic acid [place] 4[place]4 [place] [address] with CRP of 5 d-dimer 0.6, EKG showed diffuse ST depression in the anterolateral leads with his current symptom with her kidney function is a lot worse initially try to do conservative management patient kept having severe symptoms lab[employer] with Dr. Rivera surprisingly had multiple vessel disease with 95% blockage in the mid LAD 60-70% blockage of the OM1 100% blockage of the small OM to and 80% mid circumflex with 85% of mid RCA no angioplasty was require the patient will be started on aggressive risk factor modification and management along with consult cardiothoracic for possible CABG. 08/14: Patient evaluated this morning, resting in bed, in no acute distress. Patient is currently undergoing testing for possible coronary artery bypass s urgery with the cardiothoracic team. Patient had carotid ultrasound that showed severe right ICA stenosis and moderate left ICA stenosis. Patient became very argumentative and agitated this morning after discussion regarding his insulin pump. 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 If patient and family are agreeable to this and patient has a working insulin pump with the refill of insulin, patient may use his pump to manage his own sugar. 08/15: Patient remained ICU, had severe stenosis of the right carotid artery might need carotid endarterectomy, in the meanwhile with the use of dye and his kidney function currently is not able to go for CT of the neck will be waiting until Tuesday. Cardiothoracic surgery indicated that he need multi-vessel CABG and the same time might require carotid endarterectomy the same time such an arrangement can be probably done early next week. He seen nephrology kidney function slightly better today. 08/16 patient remains in ICU. Underwent CT of the chest today with CTA neck pending. Patient denies any symptoms of chest pain or shortness of breath. Vitals are stable with temp of 98.5 pulse 85 respiratory rate 13 blood pressure 160/104. Blood work suggesting hemoglobin stable at 7.1, sodium 135 creatinine 2.13 BUN 35 CO2 21 chloride 114 blood sugar 69 this morning. Patient continues to use his own insulin pump . Patient agrees on removing the insulin pump close to the surgery. 08/17 patient examined bedside on the floor. Denies any chest pain or shortness of breath. Denies any dizziness or change in mental status. Vitals suggests a temp of 97.8 pulse 85 respiratory rate 18 blood pressure 151/70. assessed sodium 135 chloride 114 CO2 of 21 creatinine improved to 1.93. BUN improved to 28. CT neck with contrast to be completed today. Heparin drip discontinued. Continue IV fluids post CT with contrast 48 hours to prevent contrast-induced nephropathy 08/18: Patient states he is feeling better today. He has been cooperative. CAT scan angiogram of the neck revealed significant stenosis of the proximal right internal carotid artery. Plan to add consult with vascular surgery for evaluation. He denies having any chest pain or shortness of breath. No lightheadedness or dizziness. Nephrology is soft IV fluids. IV iron has been ordered 08/19: Yesterday afternoon, patient underwent bilateral carotid angiography with Dr. Rivera which found 99% right ICA stenosis and 70% left. Vascular surgery is on consult. Cardiothoracic surgery is planning on CABG for tomorrow. There is no plan for carotid artery intervention during this hospitalization. The patient denies any chest pain or shortness of breath. surgical pathologist is sinus rhythm. Repeat blood work reveals hemoglobin of 6.7 potassium 3.4. Calcium 6.2. Magnesium 1.2. Cardiothoracic surgery has addressed electrolyte replacements. One unit of packed RBCs for transfusion ordered. 08/20: Patient has gone for CABG. 08/21: Patient is status post off-pump CABG 3 with REID to LAD, saphenous vein grafts to first obtuse marginal and right coronary arteries, exclusion of left atrial appendage with 35 mm AtriCure clip. Patient was successfully extubated yesterday afternoon. He has a mediastinal, left and right pleural chest tubes in place. He is seen this morning intensive care unit, sitting up in a recliner. He has eating his breakfast with no nausea vomiting. He states his chest as feeling sore. He is using incentive spirometry of reaching 1000 miles. Repeat chest x-ray reveals minimal bilateral apical pneumothoraces. Bibasilar infiltrates. Hemoglobin is 6.5 and patient is being transfused 1 unit packed RBCs. Blood sugar running between 101 and 136 and patient states he has a new sensor for his insulin pump for today. He has been afebrile, heart rate 85, blood pressure 130/53. surgical pathologist is a sinus rhythm. Other blood work reveals WBC 7.2, platelet count 161. Sodium 131, potassium 4.5, chloride 107, CO2 22, BUN 25 and creatinine 2.09. Patient was ordered for 1 dose of IV Lasix 20 mg today. 08/22: Remains in the intensive care unit. He is complaining of feeling tired cold and fatigued. He is not eating or drinking very well. He denies chest pain and shortness of breath. Ensure has been ordered. Hemoglobin today is 5.6 and transfusion has been ordered. BUN 39 creatinine 2.68. Sodium 130. Blood sugar this morning as 76 but patient was in the 400s yesterday afternoon. He is status post 1 dose of Ferrlecit yesterday and was started on Aranesp. Repeat chest x-ray revealed bilateral consolidation and pleural effusion stable. Postop changes stable with 5% left apical pneumothorax. surgical pathologist is a sinus rhythm. Patient has been afebrile, heart rate 80, blood pressure 105/72, pulse ox 99% on room air. 08/23: Patient remains in the intensive care unit. No new complaints today. He denies shortness of breath. He has a little chest discomfort. He states he is not sleeping. He is falling asleep for half hour to one hour at a time since he has been admitted. Melatonin will be added. He has been afebrile, heart rate in the 120s, blood pressure 98/53, pulse ox 99% on room air. Patient went into atrial fibrillation last evening and started on amiodarone. Hemoglobin is 6.9. Patient states no plan for transfusion. BUN 48 and creatinine 2.64. Blood sugars running between 102 and 257. He is continued on his insulin pump. Alkaline phosphatase 167. Chest x-ray correlate for mild CHF otherwise consider interstitial pneumonitis with underlying basilar infiltrates and small effusions. Stable less than 5% left apical pneumothorax. REVIEW OF SYSTEMS CONSTITUTIONAL: Well-developed no acute respiratory distress. No fever. No chills. Reports fatigue. EYES: No icterus sclerae, no conjunctivitis. EARS, NOSE, MOUTH, THROAT, and FACE: No sore throat, lymphadenopathy, carotid bruits or deformity. RESPIRATORY: No SOB cough or wheezes. CARDIOVASCULAR: Reports mild chest discomfort, denies Palpitation, PND, Orthopnea, or angina. GASTROINTESTINAL: No Abd pain, Nausea or vomiting, no Diarrhea or constipation, No GI Bleed, no distention or masses. Reports loss of appetite. GENITOURINARY: Negative for Hematuria or UTI, no kidney stones. INTEGUMENT/BREAST: Negative for any muscular injury with mild osteoarthritis.. HEMATOLOGIC/LYMPHATIC: Negative for bleed or purpura. MUSCULOSKELTAL: Negative for Myalgia or arthralgia. NEURLOGICAL: No LOC, Sz or syncope, blurred vision dizziness or abnormality.. BEHAVIORAL/PSYCH: Negative. ENDOCRINE: Negative. PHYSICAL EXAMINATION Gen: This is a 59-year-old male. He is resting in chair and appears to be comfortable. HEENT: Head is atraumatic, normocephalic. Pupils equal, round. Sclerae is anicteric. NECK: Supple. No JVD. No lymphadenopathy. No thyromegaly. LUNGS: Clear to auscultation. No wheezes or rhonchi. No intercostal retractions. Chest tubes in place. HEART: Irregular rate and rhythm. No murmur. ABDOMEN: Soft. Bowel sounds are present. No masses. No tenderness. EXTREMITIES: No pedal edema. No calf tenderness. NEUROLOGICAL: Patient is awake, alert and oriented x3. Cranial nerves 2 through 12 are grossly intact. ASSESSMENT AND PLAN 1. Acute non-ST elevated myocardial infarction. Patient is status post heart catheterization revealing severe coronary artery disease. Status post off-pump CABG 3 with REID to LAD, saphenous vein grafts to first obtuse marginal and right coronary arteries, exclusion of left atrial appendage with 35 mm AtriCure clip. Continue current management per cardiothoracic team. 2. Acute kidney injury with stage IV chronic kidney disease. Nephrology consult appreciated. 3. Severe carotid artery stenosis, right. Bilateral carotid angiography revealed 99% right internal carotid artery stenosis and 70% left internal carotid artery stenosis. Vascular surgery consult appreciated and signed off. 4. Diabetes mellitus type 1, on insulin pump. Diabetes uncontrolled with hyperglycemia. Plan is to continue insulin pump. 5. Hypertension. Continue Lopressor. 6. Hyperlipidemia. Continue atorvastatin 80 mg daily. 7. Chronic advanced diabetic peripheral neuropathy: Patient should be on at least a starter of neuropathy medication like gabapentin or Lyrica something highly suggested to be done as an outpatient. 8. Anemia of chronic kidney disease with acute blood loss anemia. Transfuse 1 unit of packed RBCs today. Continue Aranesp, ferrous sulfate, status post Ferrlecit infusion. 9. Chronic tobacco use and dependence. Smoking cessation. 10. Peripheral vascular occlusive disease. 11. History of coronary artery disease with previous stent placement in the proximal and mid RCA in 2004. Continue as in #1. 12. New onset of atrial fibrillation, paroxysmal atrial fibrillation. Patient started on amiodarone amiodarone. 13. DVT prophylaxis. 14. GI prophylaxis. Protonix. Discharge plan: [facility] home [facility]. Impression and plan of care have been directed as dictated by the signing physician. Cecille Marcum nurse practitioner acting as scribe for signing physician. Objective - Vital Signs Vital signs: Vital Signs Temp 98 F 08/23/20 08:00 Pulse 125 H 08/23/20 10:00 Resp 17 08/23/20 10:00 BP 89/53 08/23/20 10:00 Pulse Ox 98 08/23/20 10:00 Intake & Output 08/22/20 08/23/20 08/23/20 18:59 06:59 18:59 Intake Total 1087 237 300 Output Total 718 1075 275 Balance 317 -838 25 Weight 68.5 kg Intake: IV 0 0 0 Lactated Ringers 1,000 ml 0 0 0 @ 20 mls/hr IV .Q24H [facility] Rx#:[id number] Oral 777 237 300 Blood Product 310 Rc As-1 Unit 310 [id number] Output: Chest Tube Drainage 120 25 75 Left Lateral Chest 120 25 75 Urine 650 1050 200 Other: Voiding Method Urinal Urinal Urinal ABP, PAP, CO, CI - Last Documented Arterial Blood Pressure 134/55 Pulmonary Artery Pressure 32/15 Cardiac Output 7.1 Cardiac Index 4.1 - Labs CBC & Chem 7: 08/23/20 02:59 08/23/20 02:59 Labs: Abnormal Lab Results - Last 24 Hours (Table) 08/22/20 08/22/20 08/22/20 Range/Units 04:41 12:07 14:30 WBC 11.2 H (3.8-10.6) k/uL RBC 2.47 L (4.30-5.90) m/uL Hgb 7.9 L D (13.0-17.5) gm/dL Hct 23.5 L (39.0-53.0) % RDW 15.7 H (11.5-15.5) % Lymphocytes # (1.0-4.8) k/uL Sodium (137-145) mmol/L BUN (9-20) mg/dL Creatinine (0.66-1.25) mg/dL POC Glucose (mg/dL) 102 H (75-99) mg/dL Calcium (8.4-10.2) mg/dL Alkaline Phosphatase (38-126) U/L Total Protein (6.3-8.2) g/dL Albumin (3.5-5.0) g/dL Crossmatch See Detail 08/22/20 08/23/20 08/23/20 Range/Units 21:01 02:59 02:59 WBC (3.8-10.6) k/uL RBC 2.17 L (4.30-5.90) m/uL Hgb 6.9 L* (13.0-17.5) gm/dL Hct 20.2 L (39.0-53.0) % RDW 15.8 H (11.5-15.5) % Lymphocytes # 0.8 L (1.0-4.8) k/uL Sodium 130 L (137-145) mmol/L BUN 48 H (9-20) mg/dL Creatinine 2.64 H (0.66-1.25) mg/dL POC Glucose (mg/dL) 257 H (75-99) mg/dL Calcium 7.9 L (8.4-10.2) mg/dL Alkaline Phosphatase 167 H (38-126) U/L Total Protein 4.8 L (6.3-8.2) g/dL Albumin 2.5 L (3.5-5.0) g/dL Crossmatch
[2020-08-23] MEDS: FUROSEMIDE 10 MG/ML 2 ML VIAL IV SCH ×2 (11:36→20:28)
--- NOTE | 2020-08-23 12:48 | P.PN ---
Subjective Progress Note Date: 08/23/20 Principal diagnosis: Acute non-ST elevation myocardial infarction and severe coronary artery disease Patient was reevaluated today on 08/18/2020, patient is waiting for final decision regarding his surgery. He was found to have significant carotid artery disease, and decision is yet to be made regarding his carotid surgery and CABG. From the pulmonary perspective, patient was seen by us, and we'll clear him for surgery. Patient has no active pulmonary symptoms whatsoever. Labs today showed hemoglobin of 7.3 WBC count is 4.8 electrolytes are normal renal profile is abnormal with a BUN of 23 creatinine is 1.92. Reevaluated today on 08/19/2020, patient is scheduled to have off pump coronary artery bypass surgery tomorrow by Dr. Chávez. Patient was already seen by vascular surgery, and the plan to eventually perform carotid endarterectomy on this patient in the near future but definitely after his CABG. Patient has bilateral internal carotid stenosis with right greater than left. Right ICA is 99%, left ICA is 70% stenosis. Again his carotid surgery will likely be scheduled in 4-6 weeks. Patient was reevaluated today on 08/20/2020, patient just came back to the ICU, he is off pump CABG 3 with REID to LAD, saphenous vein graft to first obtuse marginal and RCA arteries exclusion of left atrial appendage with 35 mm articure clip. Patient is in the ICU, he is now on mechanical ventilation, his ventilator settings are assist control rate of 10 increased at 12, tidal volume is 500, FiO2 is 40%, and PEEP is 5.ABG showed a pO2 of over 400 pCO2 of 47 pH of 7.31. Hence his rate was increased up to 12. Postoperative chest x-ray showed postsurgical changes with small tiny left apical pneumothorax but there is a chest tube in place, and by basilar atelectasis, expected postoperatively. Reevaluated today on 08/21/2020, patient remains in the ICU, he is status post off-pump CABG 3 with REID to LAD, saphenous vein graft to first obtuse marginal and right coronary arteries. Patient was extubated yesterday uneventfully at 16:22. And his post extubation course has been uneventful. Patient is achieving 1000 mL on his incentive spirometer. He is in sinus rhythm, hemodynamically stable, cardiac output is 6.1 index is 3.5. CVP is 6. Chest tube and mediastinal tube on low suction, no air leak is noted. Serosanguineous drainage is noted. No major issues in the last 12 hours Patient was reevaluated today on 08/22/2020, he is postoperative day #2, off pump CABG with REID to LAD and saphenous vein graft to obtuse marginal and right coronary artery. Patient is doing fairly well today, however his hemoglobin is down to 5.6, and he is to receive at least 1 unit of packed RBCs today. Chest x-ray showed minimal postoperative changes and atelectasis, expected. Patient is doing well with incentive spirometry. Renal functioning remains marginal wi th a BUN of 39 and creatinine of 2.68, that being addressed by nephrology. Overall, clinically the patient is doing fairly well Reevaluated today on 08/23/2020, patient remains in the ICU, went into atrial fibrillation this morning, patient is to be started on amiodarone protocol. His hemoglobin responded well to transfusion, it is 6.9 today. Patient denies any shortness of breath, he has some complaint of pain at the surgical site left chest tube insertion site. He is hemodynamically stable. And his O2 saturations 97% on room air. Patient is in atrial fibrillation, rate about 1:15 per minute. And again he is about to be started on amiodarone. Chest x-ray showed minimal bibasilar atelectasis. Objective - Vital Signs Vital signs: Vital Signs Temp 98.3 F 08/23/20 12:00 Pulse 80 08/23/20 12:21 Resp 11 L 08/23/20 12:15 BP 97/69 08/23/20 12:15 Pulse Ox 100 08/23/20 12:15 Intake & Output 08/22/20 08/23/20 08/23/20 18:59 06:59 18:59 Intake Total 1087 237 400 Output Total 770 1075 275 Balance 317 -838 125 Weight 68.5 kg Intake: IV 0 0 0 Lactated Ringers 1,000 ml 0 0 0 @ 20 mls/hr IV .Q24H [facility] Rx#:[id number] Oral 777 237 400 Blood Product 310 Rc As-1 Unit 310 [id number] Output: Chest Tube Drainage 120 25 75 Left Lateral Chest 120 25 75 Urine 650 1050 200 Other: Voiding Method Urinal Urinal Urinal ABP, PAP, CO, CI - Last Documented Arterial Blood Pressure 134/55 Pulmonary Artery Pressure 32/15 Cardiac Output 7.1 Cardiac Index 4.1 - Exam Gen: This is a 59-year-old male. Sitting at a bedside chair, in no distress, on nasal cannula. HEENT: Head is atraumatic, normocephalic. Pupils equal, round. Sclerae is anicte ramona. NECK: Supple. No JVD. No lymphadenopathy. No thyromegaly. LUNGS: Symmetrical chest expansion, fine crackles at the bases. Chest tube has been removed earlier today. HEART: Irregular irregular rhythm. No murmur. Positive pericardial rub.current ABDOMEN: Soft. Bowel sounds are present. No masses. No tenderness. EXTREMITIES: No pedal edema. No calf tenderness. NEUROLOGICAL: Alert and oriented 3, no gross focal neurologic deficits. Psychiatric: Normal mood, affect and normal mental status examination - Labs CBC & Chem 7: 08/23/20 02:59 08/23/20 02:59 Labs: Abnormal Lab Results - Last 24 Hours (Table) 08/22/20 08/22/20 08/23/20 Range/Units 14:30 21:01 02:59 WBC 11.2 H (3.8-10.6) k/uL RBC 2.47 L 2.17 L (4.30-5.90) m/uL Hgb 7.9 L D 6.9 L* (13.0-17.5) gm/dL Hct 23.5 L 20.2 L (39.0-53.0) % RDW 15.7 H 15.8 H (11.5-15.5) % Lymphocytes # 0.8 L (1.0-4.8) k/uL Sodium (137-145) mmol/L BUN (9-20) mg/dL Creatinine (0.66-1.25) mg/dL POC Glucose (mg/dL) 257 H (75-99) mg/dL Calcium (8.4-10.2) mg/dL Alkaline Phosphatase (38-126) U/L Total Protein (6.3-8.2) g/dL Albumin (3.5-5.0) g/dL 08/23/20 Range/Units 02:59 WBC (3.8-10.6) k/uL RBC (4.30-5.90) m/uL Hgb (13.0-17.5) gm/dL Hct (39.0-53.0) % RDW (11.5-15.5) % Lymphocytes # (1.0-4.8) k/uL Sodium 130 L (137-145) mmol/L BUN 48 H (9-20) mg/dL Creatinine 2.64 H (0.66-1.25) mg/dL POC Glucose (mg/dL) (75-99) mg/dL Calcium 7.9 L (8.4-10.2) mg/dL Alkaline Phosphatase 167 H (38-126) U/L Total Protein 4.8 L (6.3-8.2) g/dL Albumin 2.5 L (3.5-5.0) g/dL Assessment and Plan Assessment: Impression: Status post off-pump CABG 3. Postoperative day #3 Acute non-ST elevation myocardial infarction Severe coronary artery disease. Severe carotid artery disease/right carotid artery stenosis may require surgery prior to CABG. Acute on chronic kidney disease. Type 1 diabetes. Benign essential hypertension. Chronic anemia of chronic kidney disease. Peripheral vessel occlusive disease. Tobacco dependence syndrome. Acute blood loss anemia secondary to surgery, expected. And there is also history of chronic anemia related to chronic kidney disease. New onset atrial fibrillation, expected after cardiac surgery. Recommendation: Amiodarone for the new onset atrial fibrillation. Continue incentive spirometry. Continue to ambulate. Pain control. Continue beta blockers, statin, aspirin, and Plavix. Continue GI and DVT prophylaxis. We will follow Time with Patient: Less than 30
--- NOTE | 2020-08-23 13:53 | P.PN ---
Subjective Progress Note Date: 08/23/20 Follow-up for acute kidney injury. Feels better today. No nausea vomiting diarrhea. Urine output of 1845 in the last 24 hours. Objective - Vital Signs Vital signs: Vital Signs Temp 98.3 F 08/23/20 12:00 Pulse 80 08/23/20 12:21 Resp 11 L 08/23/20 12:15 BP 97/69 08/23/20 12:15 Pulse Ox 100 08/23/20 12:15 Intake & Output 08/22/20 08/23/20 08/23/20 18:59 06:59 18:59 Intake Total 1087 237 400 Output Total 770 1075 275 Balance 317 -838 125 Weight 68.5 kg Intake: IV 0 0 0 Lactated Ringers 1,000 ml 0 0 0 @ 20 mls/hr IV .Q24H [facility] Rx#:[id number] Oral 777 237 400 Blood Product 310 Rc As-1 Unit 310 [id number] Output: Chest Tube Drainage 120 25 75 Left Lateral Chest 120 25 75 Urine 650 1050 200 Other: Voiding Method Urinal Urinal Urinal ABP, PAP, CO, CI - Last Documented Arterial Blood Pressure 134/55 Pulmonary Artery Pressure 32/15 Cardiac Output 7.1 Cardiac Index 4.1 - Exam No acute distress S1-S2 heard Decreased breath sounds No edema - Labs CBC & Chem 7: 08/23/20 02:59 08/23/20 02:59 Labs: Abnormal Lab Results - Last 24 Hours (Table) 08/22/20 08/22/20 08/23/20 Range/Units 14:30 21:01 02:59 WBC 11.2 H (3.8-10.6) k/uL RBC 2.47 L 2.17 L (4.30-5.90) m/uL Hgb 7.9 L D 6.9 L* (13.0-17.5) gm/dL Hct 23.5 L 20.2 L (39.0-53.0) % RDW 15.7 H 15.8 H (11.5-15.5) % Lymphocytes # 0.8 L (1.0-4.8) k/uL Sodium (137-145) mmol/L BUN (9-20) mg/dL Creatinine (0.66-1.25) mg/dL POC Glucose (mg/dL) 257 H (75-99) mg/dL Calcium (8.4-10.2) mg/dL Alkaline Phosphatase (38-126) U/L Total Protein (6.3-8.2) g/dL Albumin (3.5-5.0) g/dL 08/23/20 Range/Units 02:59 WBC (3.8-10.6) k/uL RBC (4.30-5.90) m/uL Hgb (13.0-17.5) gm/dL Hct (39.0-53.0) % RDW (11.5-15.5) % Lymphocytes # (1.0-4.8) k/uL Sodium 130 L (137-145) mmol/L BUN 48 H (9-20) mg/dL Creatinine 2.64 H (0.66-1.25) mg/dL POC Glucose (mg/dL) (75-99) mg/dL Calcium 7.9 L (8.4-10.2) mg/dL Alkaline Phosphatase 167 H (38-126) U/L Total Protein 4.8 L (6.3-8.2) g/dL Albumin 2.5 L (3.5-5.0) g/dL Assessment and Plan Assessment: #1 acute kidney injury secondary to ischemic ATN status post CABG and acute blood loss anemia. #2 CK D stage III B secondary to diabetic kidney disease Baseline creatinine 1.8 MG per DL. #3 CAD status post CABG #4 hypotensive episodes #5 hypervolemic hyponatremia. Plan: #1 renal function stable. #2 hyponatremia workup #3 add midodrine for hemodynamic support #4 avoid nephrotoxic agents and hypotensive episodes
[2020-08-23] MEDS: MIDODRINE 5 MG TAB PO SCH ×2 (15:36→20:29)
[2020-08-23 15:51] LABS: Creatinine,Urine Random 48.7 mg/dL
[2020-08-23] MEDS: SENNOSIDES-DOCUSATE SODIUM 1 EACH TAB PO SCH (20:29)
[2020-08-23] MEDS: MELATONIN 5 MG TABLET PO SCH (20:29)
[2020-08-23 20:58] LABS: Glucose,Whole Blood 142 mg/dL (75-99)
[2020-08-24] MEDS: HEPARIN SODIUM,PORCINE 5,000 UNIT/ML 1 ML VIAL SQ SCH ×4 (00:22→22:51)
[2020-08-24] MEDS: INSULIN PUMP MEAL BOLUS 1 UNIT MISC MISCELLANE SCH ×6 (04:31→21:18)
[2020-08-24 04:47] LABS: Albumin 2.5 g/dL (3.5-5.0); Potassium 4.4 mmol/L (3.5-5.1); Total Bilirubin 0.4 mg/dL (0.2-1.3); Total Protein 4.8 g/dL (6.3-8.2)
[2020-08-24 04:53] LABS: Anisocytosis Slight; Basophils % (A) 0 %; Eosinophils # (A) 0.3 k/uL (0-0.7); Eosinophils % (A) 4 %; HCT 20.3 % (39.0-53.0); Lymphocytes # (A) 0.9 k/uL (1.0-4.8); Lymphocytes % (A) 14 %; MCV 93.9 fL (80.0-100.0); Mean Platelet Volume 7.9; Monocytes # (A) 0.5 k/uL (0-1.0); Monocytes % (A) 8 %; Neutrophils # (A) 4.9 k/uL (1.3-7.7); Neutrophils % (A) 71 %; Platelet Count 285 k/uL (150-450); RBC 2.16 m/uL (4.30-5.90); RDW 16.1 % (11.5-15.5); WBC 6.9 k/uL (3.8-10.6)
[2020-08-24 04:54] LABS: HGB 6.7 gm/dL (13.0-17.5)
[2020-08-24] MEDS: METOPROLOL TARTRATE 50 MG TAB PO SCH ×2 (06:27→17:07)
[2020-08-24] MEDS: PANTOPRAZOLE 40 MG TABLET PO SCH ×2 (06:30→11:15)
[2020-08-24] MEDS: ASCORBIC ACID 500 MG TAB PO SCH ×2 (06:30→17:07)
[2020-08-24] MEDS: FERROUS SULFATE 325 MG TAB PO SCH ×2 (06:30→17:07)
--- NOTE | 2020-08-24 07:31 | XR ---
EXAMINATION TYPE: XR chest 2V DATE OF EXAM: 08/24/2020 COMPARISON: 08/23/2020 TECHNIQUE: PA and lateral views submitted. HISTORY: Postop CABG FINDINGS: There is approximately 5-10% left apical pneumothorax. Chest tube is been removed and there is bibasa l consolidation small effusion. Mildly coarsened interstitium with underlying COPD and postoperative changes. Heart size stable. 1. IMPRESSION: 1. Stable bilateral areas of consolidation and pleural effusion correlate for mild central venous con gestion superimposed on a background of COPD. 2. A left apical pneumothorax measuring 5-10%.
[2020-08-24 07:45] LABS: Glucose,Whole Blood 236 mg/dL (75-99)
--- NOTE | 2020-08-24 07:50 | P.PN ---
Subjective Progress Note Date: 08/24/20 Principal diagnosis: Triple-vessel coronary artery disease, non-STEMI this admission, bilateral internal carotid artery stenosis, right 99%, left 70% per angiogram. 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 POD #4 Off-pump CABG 3 with REID to LAD, saphenous vein grafts to first obtuse marginal and right coronary arteries, exclusion of left atrial appendage with 35 mm AtriCure clip. Postoperative acute blood loss anemia, expected due to history of chronic anemia and hemodilution. Postoperative paroxysmal atrial fibrillation, unexpected The patient was seen in follow-up today 08/24/2020 at his bedside in the intensive care unit. Currently he is sitting up to the bedside chair, is awake, alert and oriented 3. He reports he just had his first postoperative shower this morning. Denies any complaints of shortness of breath or pain at this time. Oxygen saturations are 98% on room air and he is achieving 2000 mL on his incentive spirometry. He reports he was ambulating up in the intensive care unit all way yesterday 2 and walked about 600 feet. He remains hemodynamically stable and is currently on no inotropic or pressor support. Nephrology started him on Midodrine 2.5 mg by mouth 3 times a day for some episodes of hypotension. The patient also reports that he did have an episode of low blood sugar this morning due to his insulin pump not communicating with his glucose monitor, currently his blood sugar is 236 according to the patient. No further episodes of atrial fibrillation and currently he is bedside telemetry showing normal sinus rhythm heart rate 81 BPM. Lab results this morning show a WBC count 6.9, hemoglobin 6.7, hematocrit 20.3, platelets 285, BUN 48 and creatinine 2.87. He remains afebrile the last 24 hours. Objective - Vital Signs Vital signs: Vital Signs Temp 97.6 F 08/24/20 04:00 Pulse 94 08/24/20 07:05 Resp 28 H 08/24/20 07:05 BP 153/75 08/24/20 07:05 Pulse Ox 100 08/24/20 07:05 Intake & Output 08/23/20 08/24/20 08/24/20 18:59 06:59 18:59 Intake Total 750 0 0 Output Total 925 1350 Balance -175 -1350 0 Weight 62.7 kg Intake: IV 0 0 0 Lactated Ringers 1,000 ml 0 0 0 @ 20 mls/hr IV .Q24H [facility] Rx#:[id number] Oral 750 Output: Chest Tube Drainage 75 Left Lateral Chest 75 Urine 850 1350 Other: Voiding Method Urinal Urinal # Voids 0 ABP, PAP, CO, CI - Last Documented Arterial Blood Pressure 134/55 Pulmonary Artery Pressure 32/15 Cardiac Output 7.1 Cardiac Index 4.1 - Constitutional General appearance: Present: cooperative, no acute distress, thin - EENT Eyes: Present: poor dentition, normal appearance. Absent: scleral icterus ENT: Present: hearing grossly normal - Neck Details: Neck is supple, no JVD. - Respiratory Details: Lung sounds are essentially clear throughout, few scattered crackles to his bila teral bases. Respirations are symmetrical and nonlabored. Oxygen saturation is 98% on room air. Achieving 2000 mL on his incentive spirometry. - Cardiovascular Details: Regular rhythm and rate. S1 and S2 present, negative for S3, gallop or murmur. Sternum is stable. Bedside telemetry showing normal sinus rhythm heart rate 81 BPM. Heart hugger is in place and he is demonstrating appropriate use. Knee- high RUTHANN hose and sequential compression devices in place to his bilateral lower extremities. - Gastrointestinal Gastrointestinal Comment(s): Abdomen is soft, nontender and nondistended. Active bowel sounds present in all 4 abdominal quadrants. No guarding or rigidity. No organomegaly appreciated. Tolerating oral intake. Passing flatus. - Genitourinary Genitourinary Comment(s): Continues to void. 600 mL of urine output in the last 8 hours. - Integumentary Integumentary Comment(s): Skin is warm and dry. No clubbing or cyanosis is present. Midline sternal incision is clean, dry and approximated. No drainage or redness is present. Left lower extremity EVH site is clean, dry and approximated. No drainage or r edness is present. - Neurologic Neurologic: Present: CNII-XII intact. Absent: focal deficits - Musculoskeletal Musculoskeletal: Present: gait normal, strength equal bilaterally - Psychiatric Psychiatric: Present: A&O x's 3, appropriate affect, intact judgment & insight - Allied health notes Allied health notes reviewed: nursing - Labs CBC & Chem 7: 08/24/20 04:12 08/24/20 04:12 Labs: Abnormal Lab Results - Last 24 Hours (Table) 08/23/20 08/23/20 08/24/20 Range/Units 02:59 20:56 04:12 RBC (4.30-5.90) m/uL Hgb (13.0-17.5) gm/dL Hct (39.0-53.0) % RDW (11.5-15.5) % Lymphocytes # (1.0-4.8) k/uL Sodium 131 L (137-145) mmol/L BUN 48 H (9-20) mg/dL Creatinine 2.87 H (0.66-1.25) mg/dL POC Glucose (mg/dL) 142 H (75-99) mg/dL Calcium 8.0 L (8.4-10.2) mg/dL Alkaline Phosphatase 255 H (38-126) U/L Total Protein 4.8 L (6.3-8.2) g/dL Albumin 2.5 L (3.5-5.0) g/dL Vitamin B12 1081.0 H (200.0-944.0) pg/mL 08/24/20 Range/Units 04:12 RBC 2.16 L (4.30-5.90) m/uL Hgb 6.7 L* (13.0-17.5) gm/dL Hct 20.3 L (39.0-53.0) % RDW 16.1 H (11.5-15.5) % Lymphocytes # 0.9 L (1.0-4.8) k/uL Sodium (137-145) mmol/L BUN (9-20) mg/dL Creatinine (0.66-1.25) mg/dL POC Glucose (mg/dL) (75-99) mg/dL Calcium (8.4-10.2) mg/dL Alkaline Phosphatase (38-126) U/L Total Protein (6.3-8.2) g/dL Albumin (3.5-5.0) g/dL Vitamin B12 (200.0-944.0) pg/mL - Imaging and Cardiology Chest x-ray: report reviewed, image reviewed Assessment and Plan Assessment: 1. Triple-vessel coronary artery disease, status post triple vessel coronary artery bypass grafting surgery. 2. Non-STEMI this admission 2. History of coronary artery disease with stent placement to the right coronary artery in 2004 4. Hypertension 5. Hyperlipidemia, treated, cholesterol 161, LDL 85 6. Type 1 insulin-dependent diabetes with insulin pump in place and peripheral neuropathy, hemoglobin A1c 8.1% 7. Chronic kidney disease stage IV with chronic anemia 8. Current tobacco dependence, FEV1 78% of predicted 9. Chronic right foot wound with MRSA infection in 2014 10. History of peripheral vascular disease with left second and third toe amputation 11. Dupuytren's contracture to bilateral hands 12. Occasional EtOH use, 1-2 drinks weekly 13. Occasional marijuana use 14. Family history of premature coronary artery disease with both father and brother having CABG in their early 50s 15. Both parents from brain aneurysm in their 70s 16. Bilateral internal carotid artery stenosis, right 99%, left 70% per angiogram 17. Postoperative acute blood loss anemia, expected 18. Postoperative paroxysmal atrial fibrillation, unexpected Plan: 1. Continue aspirins, statin, Plavix, and beta jaxon. Will increase metoprolol tartrate as tolerated. 2. Continue amiodarone 400 mg by mouth twice a day for atrial fibrillation prophylaxis. Currently in normal sinus rhythm. 3. Continue to encourage incentive spirometry 10 times every hour while awake. Bronchodilators per pulmonology/critical care management. 4. Increase activity, ambulate as tolerated. PT/OT/cardiac rehab following. 5. Will monitor daily labs and chest x-rays. Electrolyte replacement per protocol. 6. GI/DVT prophylaxis 7. Insulin management per primary care service. The patient has his own insulin pump in place. 8. Pain control with current medication regimen. Garrett discontinued, acetaminophen 1000 mg by mouth every 6 hours when necessary pain ordered. 9. Continue to monitor Daily weights. 10. Avoid nephrotoxic agents. 11. Transfer orders placed for the cardiac stepdown unit. Discharge planning is in place, anticipate discharge home with home health care in the next 24 hours. 12. More recommendations to follow based on patient's clinical course. Time with Patient: Greater than 30
[2020-08-24] MEDS: FUROSEMIDE 10 MG/ML 2 ML VIAL IV SCH (08:01)
[2020-08-24] MEDS: MIDODRINE 5 MG TAB PO SCH ×3 (08:01→22:52)
[2020-08-24] MEDS: AMIODARONE 200 MG TAB PO SCH ×2 (08:01→21:16)
[2020-08-24] MEDS: ASPIRIN 325 MG TAB PO SCH (08:01)
[2020-08-24] MEDS: CLOPIDOGREL 75 MG TAB PO SCH (08:02)
[2020-08-24] MEDS: ATORVASTATIN 80 MG TAB PO SCH (08:02)
[2020-08-24] MEDS: SODIUM BICARBONATE TAB 650 MG TAB PO SCH ×3 (08:02→22:51)
[2020-08-24] MEDS: ACETAMINOPHEN TAB 500 MG TAB PO PRN ×2 (08:20→15:01)
[2020-08-24] MEDS: IPRATROPIUM-ALBUTEROL 3 ML NEB INHALATION SCH ×5 (08:29→19:07)
[2020-08-24 09:08] LABS: Amylase 36 U/L (30-110); Lipase 18 U/L (23-300)
--- NOTE | 2020-08-24 09:22 | PN ---
PROGRESS NOTE Mr. Knowles is a 59-year-old male with history of diabetes, carotid disease, who presented with non STEMI, was found to have severe triple-vessel coronary artery disease, underwent coronary artery bypass grafting. He had an episode of atrial fibrillation yesterday, but he is back in sinus mechanism. Hemodynamically, he is stable. He is feeling better. His is breathing is stable. He denies any dizziness or palpitations. He denies any nausea. He is doing better with the incentive spirometry. He continues to be on aspirin once a day, Lipitor 80 mg daily, Plavix 75 mg daily, and metoprolol tartrate 50 mg twice a day. PHYSICAL EXAMINATION: Blood pressure 124/70 with a heart rate in 70s. LUNGS: Clear. HEART: Regular rate and rhythm. S1, S2. No S3, plus rub. No gallop. ABDOMEN: Soft, nontender. EXTREMITIES: No edema. LAB DATA: Revealed hemoglobin of 6.7, BUN and creatinine 48 and 2.37. IMPRESSION: 1. Status post coronary artery bypass grafting stable. 2. Paroxysmal atrial fibrillation back in sinus mechanism. 3. Chronic kidney disease. 4. Carotid disease. 5. Anemia, chronic. 6. Diabetes mellitus. 7. History of chronic tobacco use. RECOMMENDATION: We will continue present therapy. Continue to follow his hemoglobin and renal function. Increase level of activity. Continue incentive spirometry and depending on his progress, further recommendations will be made. MMODL / IJN: [id number] /
[2020-08-24] MEDS: METOPROLOL TARTRATE 25 MG TAB PO SCH (11:15)
--- NOTE | 2020-08-24 11:26 | P.PN ---
Subjective Progress Note Date: 08/24/20 HISTORY OF PRESENT ILLNESS 59-year-old male one of Dr. Roach's patient with past medical history of diabe zach on insulin pump, history of hypertension, hyperlipidemia, chronic neuropathy who is also noted to have coronary artery disease post PCI and stent placement back in 2004 was also has been having chronic kidney disease taste for. Patient presented to the emergency department today 08/13/2020 complaining of body ache all over his body along with numbness with worsening shortness of breath with n onspecific chest tightness or pressure and claims his neuropathy has been a lot worse he could not feel his feet and hands. His blood sugar has been slightly bit elevated as well. 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 08/14: Patient evaluated this morning, resting in bed, in no acute distress. Patient is currently undergoing testing for possible coronary artery bypass s urgery with the cardiothoracic team. Patient had carotid ultrasound that showed severe right ICA stenosis and moderate left ICA stenosis. Patient became very argumentative and agitated this morning after discussion regarding his insulin pump. 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 If patient and family are agreeable to this and patient has a working insulin pump with the refill of insulin, patient may use his pump to manage his own sugar. 08/15: Patient remained ICU, had severe stenosis of the right carotid artery might need carotid endarterectomy, in the meanwhile with the use of dye and his kidney function currently is not able to go for CT of the neck will be waiting until Tuesday. Cardiothoracic surgery indicated that he need multi-vessel CABG and the same time might require carotid endarterectomy the same time such an arrangement can be probably done early next week. He seen nephrology kidney function slightly better today. 08/16 patient remains in ICU. Underwent CT of the chest today with CTA neck pending. Patient denies any symptoms of chest pain or shortness of breath. Vitals are stable with temp of 98.5 pulse 85 respiratory rate 13 blood pressure 160/104. Blood work suggesting hemoglobin stable at 7.1, sodium 135 creatinine 2.13 BUN 35 CO2 21 chloride 114 blood sugar 69 this morning. Patient continues to use his own insulin pump . Patient agrees on removing the insulin pump close to the surgery. 08/17 patient examined bedside on the floor. Denies any chest pain or shortness of breath. Denies any dizziness or change in mental status. Vitals suggests a temp of 97.8 pulse 85 respiratory rate 18 blood pressure 151/70. assessed sodium 135 chloride 114 CO2 of 21 creatinine improved to 1.93. BUN improved to 28. CT neck with contrast to be completed today. Heparin drip discontinued. Continue IV fluids post CT with contrast 48 hours to prevent contrast-induced nephropathy 08/18: Patient states he is feeling better today. He has been cooperative. CAT scan angiogram of the neck revealed significant stenosis of the proximal right internal carotid artery. Plan to add consult with vascular surgery for evaluation. He denies having any chest pain or shortness of breath. No lightheadedness or dizziness. Nephrology is soft IV fluids. IV iron has been ordered 08/19: Yesterday afternoon, patient underwent bilateral carotid angiography with Dr. Rivera which found 99% right ICA stenosis and 70% left. Vascular surgery is on consult. Cardiothoracic surgery is planning on CABG for tomorrow. There is no plan for carotid artery intervention during this hospitalization. The patient denies any chest pain or shortness of breath. site monitor is sinus rhythm. Repeat blood work reveals hemoglobin of 6.7 potassium 3.4. Calcium 6.2. Magnesium 1.2. Cardiothoracic surgery has addressed electrolyte replacements. One unit of packed RBCs for transfusion ordered. 08/20: Patient has gone for CABG. 08/21: Patient is status post off-pump CABG 3 with REID to LAD, saphenous vein grafts to first obtuse marginal and right coronary arteries, exclusion of left atrial appendage with 35 mm AtriCure clip. Patient was successfully extubated yesterday afternoon. He has a mediastinal, left and right pleural chest tubes in place. He is seen this morning intensive care unit, sitting up in a recliner. He has eating his breakfast with no nausea vomiting. He states his chest as feeling sore. He is using incentive spirometry of reaching 1000 miles. Repeat chest x-ray reveals minimal bilateral apical pneumothoraces. Bibasilar infiltrates. Hemoglobin is 6.5 and patient is being transfused 1 unit packed RBCs. Blood sugar running between 101 and 136 and patient states he has a new sensor for his insulin pump for today. He has been afebrile, heart rate 85, blood pressure 130/53. site monitor is a sinus rhythm. Other blood work reveals WBC 7.2, platelet count 161. Sodium 131, potassium 4.5, chloride 107, CO2 22, BUN 25 and creatinine 2.09. Patient was ordered for 1 dose of IV Lasix 20 mg today. 08/22: Remains in the intensive care unit. He is complaining of feeling tired cold and fatigued. He is not eating or drinking very well. He denies chest pain and shortness of breath. Ensure has been ordered. Hemoglobin today is 5.6 and transfusion has been ordered. BUN 39 creatinine 2.68. Sodium 130. Blood sugar this morning as 76 but patient was in the 400s yesterday afternoon. He is status post 1 dose of Ferrlecit yesterday and was started on Aranesp. Repeat chest x-ray revealed bilateral consolidation and pleural effusion stable. Postop changes stable with 5% left apical pneumothorax. site monitor is a sinus rhythm. Patient has been afebrile, heart rate 80, blood pressure 105/72, pulse ox 99% on room air. 08/23: Patient remains in the intensive care unit. No new complaints today. He denies shortness of breath. He has a little chest discomfort. He states he is not sleeping. He is falling asleep for half hour to one hour at a time since he has been admitted. Melatonin will be added. He has been afebrile, heart rate in the 120s, blood pressure 98/53, pulse ox 99% on room air. Patient went into atrial fibrillation last evening and started on amiodarone. Hemoglobin is 6.9. Patient states no plan for transfusion. BUN 48 and creatinine 2.64. Blood sugars running between 102 and 257. He is continued on his insulin pump. Alkaline phosphatase 167. Chest x-ray correlate for mild CHF otherwise consider interstitial pneumonitis with underlying basilar infiltrates and small effusions. Stable less than 5% left apical pneumothorax. 08/24: Patient states he finally slept well last night. He denies any chest pain or shortness of breath. No lightheadedness or dizziness. Hemoglobin this morning is 6.7 and he is being transfused 1 unit packed RBCs. BUN 14 creatinine 2.87. Blood sugar running between 92 and 236. Patient has been afebrile, heart rate 79, blood pressure 125/71, pulse ox 96% on room air. Chest x-ray reveals stable findings, left apical pneumothorax measuring 5-10%. site monitor is back in a sinus rhythm. REVIEW OF SYSTEMS CONSTITUTIONAL: Well-developed no acute respiratory distress. No fever. No chills. Reports fatigue. EYES: No icterus sclerae, no conjunctivitis. EARS, NOSE, MOUTH, THROAT, and FACE: No sore throat, lymphadenopathy, carotid bruits or deformity. RESPIRATORY: No SOB cough or wheezes. CARDIOVASCULAR: Denies chest pain, denies Palpitation, PND, Orthopnea, or angina. GASTROINTESTINAL: No Abd pain, Nausea or vomiting, no Diarrhea or constipation, No GI Bleed, no distention or masses. Reports loss of appetite. GENITOURINARY: Negative for Hematuria denies dysuria, no kidney stones. INTEGUMENT/BREAST: Negative for any muscular injury with mild osteoarthritis.. HEMATOLOGIC/LYMPHATIC: Negative for bleed or purpura. MUSCULOSKELTAL: Negative for Myalgia or arthralgia. NEURLOGICAL: No LOC, Sz or syncope, blurred vision dizziness or abnormality.. BEHAVIORAL/PSYCH: Negative. ENDOCRINE: Negative. PHYSICAL EXAMINATION Gen: This is a 59-year-old male. He is resting in chair and appears to be comfortable. Blood transfusion in process HEENT: Head is atraumatic, normocephalic. Pupils equal, round. Sclerae is anicteric. NECK: Supple. No JVD. No lymphadenopathy. No thyromegaly. LUNGS: Clear to auscultation. No wheezes or rhonchi. No intercostal ret ractions. HEART: Irregular rate and rhythm. No murmur. ABDOMEN: Soft. Bowel sounds are present. No masses. No tenderness. EXTREMITIES: No pedal edema. No calf tenderness. NEUROLOGICAL: Patient is awake, alert and oriented x3. Cranial nerves 2 through 12 are grossly intact. ASSESSMENT AND PLAN 1. Acute non-ST elevated myocardial infarction. Patient is status post heart catheterization revealing severe coronary artery disease. Status post off-pump CABG 3 with REID to LAD, saphenous vein grafts to first obtuse marginal and right coronary arteries, exclusion of left atrial appendage with 35 mm AtriCure clip. Continue current management per cardiothoracic team. 2. Acute kidney injury with stage IV chronic kidney disease. Nephrology consult appreciated. 3. Severe carotid artery stenosis, right. Bilateral carotid angiography revealed 99% right internal carotid artery stenosis and 70% left internal carotid artery stenosis. Vascular surgery consult appreciated and signed off. 4. Diabetes mellitus type 1, on insulin pump. Diabetes uncontrolled with hyperglycemia. Plan is to continue insulin pump. 5. Hypertension. Continue Lopressor. 6. Hyperlipidemia. Continue atorvastatin 80 mg daily. 7. Chronic advanced diabetic peripheral neuropathy: Patient should be on at least a starter of neuropathy medication like gabapentin or Lyrica something highly suggested to be done as an outpatient. 8. Anemia of chronic kidney disease with acute blood loss anemia. Transfuse 1 unit of packed RBCs today. Continue Aranesp, ferrous sulfate, status post Ferrlecit infusion. 9. Chronic tobacco use and dependence. Smoking cessation. 10. Peripheral vascular occlusive disease. 11. History of coronary artery disease with previous stent placement in the proximal and mid RCA in 2004. Continue as in #1. 12. New onset of atrial fibrillation, paroxysmal atrial fibrillation. Patient started on amiodarone 4 mg twice daily, Lopressor 50 mg twice daily. 13. DVT prophylaxis. 14. GI prophylaxis. Protonix. Discharge plan: Most likely home on Tuesday/Tuesday with [facility]. Impression and plan of care have been directed as dictated by the signing physician. Cecille Marcum nurse practitioner acting as scribe for signing physician. Objective - Vital Signs Vital signs: Vital Signs Temp 98.6 F 08/24/20 10:28 Pulse 79 08/24/20 10:28 Resp 18 08/24/20 10:28 BP 125/71 08/24/20 10:28 Pulse Ox 96 08/24/20 10:28 Intake & Output 08/23/20 08/24/20 08/24/20 18:59 06:59 18:59 Intake Total 750 0 200 Output Total 925 1350 Balance -175 -1350 200 Weight 62.7 kg Intake: IV 0 0 0 Lactated Ringers 1,000 ml 0 0 0 @ 20 mls/hr IV .Q24H [facility] Rx#:[id number] Oral 750 200 Blood Product 0 Rc As-1 Unit 0 [id number] Output: Chest Tube Drainage 75 Left Lateral Chest 75 Urine 850 1350 Other: Voiding Method Urinal Urinal Urinal # Voids 0 0 ABP, PAP, CO, CI - Last Documented Arterial Blood Pressure 134/55 Pulmonary Artery Pressure 32/15 Cardiac Output 7.1 Cardiac Index 4.1 - Labs CBC & Chem 7: 08/24/20 04:12 08/24/20 04:12 Labs: Abnormal Lab Results - Last 24 Hours (Table) 08/22/20 08/23/20 08/23/20 Range/Units 04:41 02:59 20:56 RBC (4.30-5.90) m/uL Hgb (13.0-17.5) gm/dL Hct (39.0-53.0) % RDW (11.5-15.5) % Lymphocytes # (1.0-4.8) k/uL Sodium (137-145) mmol/L BUN (9-20) mg/dL Creatinine (0.66-1.25) mg/dL POC Glucose (mg/dL) 142 H (75-99) mg/dL Calcium (8.4-10.2) mg/dL Alkaline Phosphatase (38-126) U/L Total Protein (6.3-8.2) g/dL Albumin (3.5-5.0) g/dL Lipase (23-300) U/L Vitamin B12 1081.0 H (200.0-944.0) pg/mL Crossmatch See Detail 08/24/20 08/24/20 08/24/20 Range/Units 04:12 04:12 04:12 RBC 2.16 L (4.30-5.90) m/uL Hgb 6.7 L* (13.0-17.5) gm/dL Hct 20.3 L (39.0-53.0) % RDW 16.1 H (11.5-15.5) % Lymphocytes # 0.9 L (1.0-4.8) k/uL Sodium 131 L (137-145) mmol/L BUN 48 H (9-20) mg/dL Creatinine 2.87 H (0.66-1.25) mg/dL POC Glucose (mg/dL) (75-99) mg/dL Calcium 8.0 L (8.4-10.2) mg/dL Alkaline Phosphatase 255 H (38-126) U/L Total Protein 4.8 L (6.3-8.2) g/dL Albumin 2.5 L (3.5-5.0) g/dL Lipase 18 L (23-300) U/L Vitamin B12 (200.0-944.0) pg/mL Crossmatch 08/24/20 Range/Units 07:43 RBC (4.30-5.90) m/uL Hgb (13.0-17.5) gm/dL Hct (39.0-53.0) % RDW (11.5-15.5) % Lymphocytes # (1.0-4.8) k/uL Sodium (137-145) mmol/L BUN (9-20) mg/dL Creatinine (0.66-1.25) mg/dL POC Glucose (mg/dL) 236 H (75-99) mg/dL Calcium (8.4-10.2) mg/dL Alkaline Phosphatase (38-126) U/L Total Protein (6.3-8.2) g/dL Albumin (3.5-5.0) g/dL Lipase (23-300) U/L Vitamin B12 (200.0-944.0) pg/mL Crossmatch
--- NOTE | 2020-08-24 12:24 | P.PN ---
Subjective Progress Note Date: 08/24/20 Principal diagnosis: Acute non-ST elevation myocardial infarction and severe coronary artery disease Patient was reevaluated today on 08/18/2020, patient is waiting for final decision regarding his surgery. He was found to have significant carotid artery disease, and decision is yet to be made regarding his carotid surgery and CABG. From the pulmonary perspective, patient was seen by us, and we'll clear him for surgery. Patient has no active pulmonary symptoms whatsoever. Labs today showed hemoglobin of 7.3 WBC count is 4.8 electrolytes are normal renal profile is abnormal with a BUN of 23 creatinine is 1.92. Reevaluated today on 08/19/2020, patient is scheduled to have off pump coronary artery bypass surgery tomorrow by Dr. Chávez. Patient was already seen by vascular surgery, and the plan to eventually perform carotid endarterectomy on this patient in the near future but definitely after his CABG. Patient has bilateral internal carotid stenosis with right greater than left. Right ICA is 99%, left ICA is 70% stenosis. Again his carotid surgery will likely be scheduled in 4-6 weeks. Patient was reevaluated today on 08/20/2020, patient just came back to the ICU, he is off pump CABG 3 with REID to LAD, saphenous vein graft to first obtuse marginal and RCA arteries exclusion of left atrial appendage with 35 mm articure clip. Patient is in the ICU, he is now on mechanical ventilation, his ventilator settings are assist control rate of 10 increased at 12, tidal volume is 500, FiO2 is 40%, and PEEP is 5.ABG showed a pO2 of over 400 pCO2 of 47 pH of 7.31. Hence his rate was increased up to 12. Postoperative chest x-ray showed postsurgical changes with small tiny left apical pneumothorax but there is a chest tube in place, and by basilar atelectasis, expected postoperatively. Reevaluated today on 08/21/2020, patient remains in the ICU, he is status post off-pump CABG 3 with REID to LAD, saphenous vein graft to first obtuse marginal and right coronary arteries. Patient was extubated yesterday uneventfully at 16:22. And his post extubation course has been uneventful. Patient is achieving 1000 mL on his incentive spirometer. He is in sinus rhythm, hemodynamically stable, cardiac output is 6.1 index is 3.5. CVP is 6. Chest tube and mediastinal tube on low suction, no air leak is noted. Serosanguineous drainage is noted. No major issues in the last 12 hours Patient was reevaluated today on 08/22/2020, he is postoperative day #2, off pump CABG with REID to LAD and saphenous vein graft to obtuse marginal and right coronary artery. Patient is doing fairly well today, however his hemoglobin is down to 5.6, and he is to receive at least 1 unit of packed RBCs today. Chest x-ray showed minimal postoperative changes and atelectasis, expected. Patient is doing well with incentive spirometry. Renal functioning remains marginal wi th a BUN of 39 and creatinine of 2.68, that being addressed by nephrology. Overall, clinically the patient is doing fairly well Reevaluated today on 08/23/2020, patient remains in the ICU, went into atrial fibrillation this morning, patient is to be started on amiodarone protocol. His hemoglobin responded well to transfusion, it is 6.9 today. Patient denies any shortness of breath, he has some complaint of pain at the surgical site left chest tube insertion site. He is hemodynamically stable. And his O2 saturations 97% on room air. Patient is in atrial fibrillation, rate about 1:15 per minute. And again he is about to be started on amiodarone. Chest x-ray showed minimal bibasilar atelectasis. Reevaluated today on 08/24/2020, patient is now in sinus rhythm, he was dynamically stable, he is on room air, asymptomatic, hemoglobin is 6.7 today. All his lines and catheters are out, patient has a very minimal left apical tiny pneumothorax. Laureano transfer the patient out of the ICU to a regular medical floor today. Or at least a monitored bed Objective - Vital Signs Vital signs: Vital Signs Temp 98.6 F 08/24/20 10:28 Pulse 79 08/24/20 10:28 Resp 18 08/24/20 10:28 BP 125/71 08/24/20 10:28 Pulse Ox 96 08/24/20 10:28 Intake & Output 08/23/20 08/24/20 08/24/20 18:59 06:59 18:59 Intake Total 750 0 200 Output Total 925 1350 Balance -175 -1350 200 Weight 62.7 kg Intake: IV 0 0 0 Lactated Ringers 1,000 ml 0 0 0 @ 20 mls/hr IV .Q24H [facility] Rx#:[id number] Oral 750 200 Blood Product 0 Rc As-1 Unit 0 [id number] Output: Chest Tube Drainage 75 Left Lateral Chest 75 Urine 850 1350 Other: Voiding Method Urinal Urinal Urinal # Voids 0 0 ABP, PAP, CO, CI - Last Documented Arterial Blood Pressure 134/55 Pulmonary Artery Pressure 32/15 Cardiac Output 7.1 Cardiac Index 4.1 - Exam Gen: This is a 59-year-old male. Sitting at a bedside chair, in no distress, on room air. HEENT: Head is atraumatic, normocephalic. Pupils equal, round. Sclerae is anicteric. NECK: Supple. No JVD. No lymphadenopathy. No thyromegaly. LUNGS: Symmetrical chest expansion, clear bilaterally. HEART: Regular rhythm. No murmur. Positive pericardial rub.current ABDOMEN: Soft. Bowel sounds are present. No masses. No tenderness. EXTREMITIES: No pedal edema. No calf tenderness. NEUROLOGICAL: Alert and oriented 3, no gross focal neurologic deficits. Psychiatric: Normal mood, affect and normal mental status examination - Labs CBC & Chem 7: 08/24/20 04:12 08/24/20 04:12 Labs: Abnormal Lab Results - Last 24 Hours (Table) 08/22/20 08/23/20 08/23/20 Range/Units 04:41 02:59 20:56 RBC (4.30-5.90) m/uL Hgb (13.0-17.5) gm/dL Hct (39.0-53.0) % RDW (11.5-15.5) % Lymphocytes # (1.0-4.8) k/uL Sodium (137-145) mmol/L BUN (9-20) mg/dL Creatinine (0.66-1.25) mg/dL POC Glucose (mg/dL) 142 H (75-99) mg/dL Calcium (8.4-10.2) mg/dL Alkaline Phosphatase (38-126) U/L Total Protein (6.3-8.2) g/dL Albumin (3.5-5.0) g/dL Lipase (23-300) U/L Vitamin B12 1081.0 H (200.0-944.0) pg/mL Crossmatch See Detail 08/24/20 08/24/20 08/24/20 Range/Units 04:12 04:12 04:12 RBC 2.16 L (4.30-5.90) m/uL Hgb 6.7 L* (13.0-17.5) gm/dL Hct 20.3 L (39.0-53.0) % RDW 16.1 H (11.5-15.5) % Lymphocytes # 0.9 L (1.0-4.8) k/uL Sodium 131 L (137-145) mmol/L BUN 48 H (9-20) mg/dL Creatinine 2.87 H (0.66-1.25) mg/dL POC Glucose (mg/dL) (75-99) mg/dL Calcium 8.0 L (8.4-10.2) mg/dL Alkaline Phosphatase 255 H (38-126) U/L Total Protein 4.8 L (6.3-8.2) g/dL Albumin 2.5 L (3.5-5.0) g/dL Lipase 18 L (23-300) U/L Vitamin B12 (200.0-944.0) pg/mL Crossmatch 08/24/20 Range/Units 07:43 RBC (4.30-5.90) m/uL Hgb (13.0-17.5) gm/dL Hct (39.0-53.0) % RDW (11.5-15.5) % Lymphocytes # (1.0-4.8) k/uL Sodium (137-145) mmol/L BUN (9-20) mg/dL Creatinine (0.66-1.25) mg/dL POC Glucose (mg/dL) 236 H (75-99) mg/dL Calcium (8.4-10.2) mg/dL Alkaline Phosphatase (38-126) U/L Total Protein (6.3-8.2) g/dL Albumin (3.5-5.0) g/dL Lipase (23-300) U/L Vitamin B12 (200.0-944.0) pg/mL Crossmatch Assessment and Plan Assessment: Impression: Status post off-pump CABG 3. Postoperative day #4 Acute non-ST elevation myocardial infarction Severe coronary artery disease. Severe carotid artery disease/right carotid artery stenosis may require surgery prior to CABG. Acute on chronic kidney disease. Type 1 diabetes. Benign essential hypertension. Chronic anemia of chronic kidney disease. Peripheral vessel occlusive disease. Tobacco dependence syndrome. Acute blood loss anemia secondary to surgery, expected. And there is also history of chronic anemia related to chronic kidney disease. New onset atrial fibrillation, expected after cardiac surgery. Resolved, he is in sinus rhythm today. Recommendation: Agree with transferring the patient out of the ICU. Continue incentive spirometry. Continue to ambulate. Pain control. Continue beta blockers, statin, aspirin, and Plavix. Continue GI and DVT prophylaxis. Possible discharge home in the next 24 hours Time with Patient: Less than 30
--- NOTE | 2020-08-24 15:13 | P.PN ---
Subjective Progress Note Date: 08/24/20 Follow-up for acute kidney injury. Feels better today. No nausea vomiting diarrhea. Good urine output. Objective - Vital Signs Vital signs: Vital Signs Temp 98.0 F 08/24/20 12:49 Pulse 72 08/24/20 12:59 Resp 20 08/24/20 12:49 BP 106/87 08/24/20 12:49 Pulse Ox 99 08/24/20 12:49 Intake & Output 08/23/20 08/24/20 08/24/20 18:59 06:59 18:59 Intake Total 750 0 747 Output Total 925 1350 Balance -175 -1350 747 Weight 62.7 kg Intake: IV 0 0 0 Lactated Ringers 1,000 ml 0 0 0 @ 20 mls/hr IV .Q24H [facility] Rx#:[id number] Oral 750 437 Blood Product 310 Rc As-1 Unit 310 [id number] Output: Chest Tube Drainage 75 Left Lateral Chest 75 Urine 850 1350 Other: Voiding Method Urinal Urinal Urinal # Voids 0 0 ABP, PAP, CO, CI - Last Documented Arterial Blood Pressure 134/55 Pulmonary Artery Pressure 32/15 Cardiac Output 7.1 Cardiac Index 4.1 - Exam No acute distress S1-S2 heard Decreased breath sounds No edema - Labs CBC & Chem 7: 08/24/20 04:12 08/24/20 04:12 Labs: Abnormal Lab Results - Last 24 Hours (Table) 08/22/20 08/23/20 08/23/20 Range/Units 04:41 02:59 20:56 RBC (4.30-5.90) m/uL Hgb (13.0-17.5) gm/dL Hct (39.0-53.0) % RDW (11.5-15.5) % Lymphocytes # (1.0-4.8) k/uL Sodium (137-145) mmol/L BUN (9-20) mg/dL Creatinine (0.66-1.25) mg/dL POC Glucose (mg/dL) 142 H (75-99) mg/dL Calcium (8.4-10.2) mg/dL Alkaline Phosphatase (38-126) U/L Total Protein (6.3-8.2) g/dL Albumin (3.5-5.0) g/dL Lipase (23-300) U/L Vitamin B12 1081.0 H (200.0-944.0) pg/mL Crossmatch See Detail 08/24/20 08/24/20 08/24/20 Range/Units 04:12 04:12 04:12 RBC 2.16 L (4.30-5.90) m/uL Hgb 6.7 L* (13.0-17.5) gm/dL Hct 20.3 L (39.0-53.0) % RDW 16.1 H (11.5-15.5) % Lymphocytes # 0.9 L (1.0-4.8) k/uL Sodium 131 L (137-145) mmol/L BUN 48 H (9-20) mg/dL Creatinine 2.87 H (0.66-1.25) mg/dL POC Glucose (mg/dL) (75-99) mg/dL Calcium 8.0 L (8.4-10.2) mg/dL Alkaline Phosphatase 255 H (38-126) U/L Total Protein 4.8 L (6.3-8.2) g/dL Albumin 2.5 L (3.5-5.0) g/dL Lipase 18 L (23-300) U/L Vitamin B12 (200.0-944.0) pg/mL Crossmatch 08/24/20 Range/Units 07:43 RBC (4.30-5.90) m/uL Hgb (13.0-17.5) gm/dL Hct (39.0-53.0) % RDW (11.5-15.5) % Lymphocytes # (1.0-4.8) k/uL Sodium (137-145) mmol/L BUN (9-20) mg/dL Creatinine (0.66-1.25) mg/dL POC Glucose (mg/dL) 236 H (75-99) mg/dL Calcium (8.4-10.2) mg/dL Alkaline Phosphatase (38-126) U/L Total Protein (6.3-8.2) g/dL Albumin (3.5-5.0) g/dL Lipase (23-300) U/L Vitamin B12 (200.0-944.0) pg/mL Crossmatch Assessment and Plan Assessment: #1 acute kidney injury secondary to ischemic ATN status post CABG and acute blood loss anemia. #2 CK D stage III B secondary to diabetic kidney disease Baseline creatinine 1.8 MG per DL. #3 CAD status post CABG #4 hypotensive episodes #5 hyponatremia. Plan: #1 renal function worsening. Stop diuretics. #2 normal saline at 75 ML's an hour overnight and repeat labs in the morning #3 continue with midodrine for hemodynamic support #4 avoid nephrotoxic agents and hypotensive episodes
[2020-08-24] MEDS: SODIUM CHLORIDE 0.9% 1,000 ML IV SCH (17:07)
[2020-08-24] MEDS: SENNOSIDES-DOCUSATE SODIUM 1 EACH TAB PO SCH (21:16)
[2020-08-24] MEDS: MELATONIN 5 MG TABLET PO SCH (21:16)
[2020-08-25] MEDS: FERROUS SULFATE 325 MG TAB PO SCH (06:02)
[2020-08-25] MEDS: ACETAMINOPHEN TAB 500 MG TAB PO PRN (06:02)
[2020-08-25] MEDS: METOPROLOL TARTRATE 50 MG TAB PO SCH (06:02)
[2020-08-25] MEDS: PANTOPRAZOLE 40 MG TABLET PO SCH (06:02)
[2020-08-25] MEDS: ASCORBIC ACID 500 MG TAB PO SCH (06:02)
[2020-08-25] MEDS: INSULIN PUMP MEAL BOLUS 1 UNIT MISC MISCELLANE SCH ×2 (07:30→12:48)
[2020-08-25 07:39] LABS: Albumin 3.1 g/dL (3.5-5.0); Calcium 8.3 mg/dL (8.4-10.2); Potassium 4.7 mmol/L (3.5-5.1); Total Bilirubin 0.7 mg/dL (0.2-1.3); Total Protein 5.7 g/dL (6.3-8.2)
--- NOTE | 2020-08-25 07:40 | P.PN ---
Subjective Progress Note Date: 08/25/20 Principal diagnosis: Triple-vessel coronary artery disease, non-STEMI this admission, bilateral internal carotid artery stenosis, right 99%, left 70% per angiogram. 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 Postoperative acute blood loss anemia, expected secondary to history of chronic anemia and hemodilution. Postoperative paroxysmal atrial fibrillation, unexpected but common occurrence after open heart surgery Patient's currently sitting up in bed in no acute distress. Cardiac stepdown unit. He denies pain, shortness of breath. States he is anxious to go home to day. Remains in normal sinus rhythm, hemodynamically stable. Has been ambulatory without difficulty. Received 1 unit packed red blood cells yesterday. Actively using incentive spirometry. No new concerns. Objective - Vital Signs Vital signs: Vital Signs Temp 98.7 F 08/25/20 04:00 Pulse 82 08/25/20 04:00 Resp 18 08/25/20 04:00 BP 132/70 08/25/20 04:00 Pulse Ox 96 08/25/20 04:00 Intake & Output 08/24/20 08/25/20 08/25/20 18:59 06:59 18:59 Intake Total 1287 240 Balance 1287 240 Weight 65.5 kg Intake: IV 0 Lactated Ringers 1,000 ml 0 @ 20 mls/hr IV .Q24H [facility] Rx#:[id number] Oral 977 240 Blood Product 310 Rc As-1 Unit 310 [id number] Other: Voiding Method Urinal Urinal # Voids 2 1 ABP, PAP, CO, CI - Last Documented Arterial Blood Pressure 134/55 Pulmonary Artery Pressure 32/15 Cardiac Output 7.1 Cardiac Index 4.1 - Constitutional General appearance: Present: cooperative, no acute distress - Respiratory Details: Lungs sounds clear bilaterally with diminished breath sounds in the left base. Respirations even, nonlabored. Remains on room air with oxygen saturation in the mid 90s. Able to achieve 2500 mL on his incentive spirometry. Strong cough. - Cardiovascular Details: S1, S2 present. Regular rate and rhythm, sinus rhythm on telemetry with heart rate in the 80s. Sternum stable. Palpable peripheral pulses bilaterally. No edema present. No calf pain or tenderness noted. Heart hugger in place with patient demonstrating appropriate use. Antiembolism stockings, SCDs present. - Gastrointestinal Gastrointestinal Comment(s): Abdomen soft, nontender, nondistended. Active bowel sounds present 4 quadrants. Tolerating diet. Positive bowel movement this morning. - Genitourinary Genitourinary Comment(s): Continues to void clear, yellow urine - Integumentary Integumentary Comment(s): Skin is warm and dry with evidence of good perfusion. Anterior chest incision well approximated without redness or drainage. Left lower extremity EVH site well approximated. - Neurologic Neurologic: Present: CNII-XII intact - Musculoskeletal Musculoskeletal: Present: gait normal, strength equal bilaterally - Psychiatric Psychiatric: Present: A&O x's 3, appropriate affect, intact judgment & insight - Allied health notes Allied health notes reviewed: nursing - Labs CBC & Chem 7: 08/25/20 07:19 08/25/20 07:19 Labs: Abnormal Lab Results - Last 24 Hours (Table) 08/22/20 08/24/20 08/24/20 Range/Units 04:41 04:12 07:43 POC Glucose (mg/dL) 236 H (75-99) mg/dL Lipase 18 L (23-300) U/L Crossmatch See Detail - Imaging and Cardiology Chest x-ray: image reviewed Assessment and Plan Assessment: 1. Triple-vessel coronary artery disease, non-STEMI this admission, status post three-vessel off-pump CABG 2. History of coronary artery disease with stent placement to the right jose ry artery in 2004 3. Hypertension 4. Hyperlipidemia, treated, cholesterol 161, LDL 85 5. Type 1 insulin-dependent diabetes with insulin pump in place and peripheral neuropathy, hemoglobin A1c 8.1% 6. Chronic kidney disease stage IIIb with chronic anemia and baseline creatinine 1.8 7. Current tobacco dependence, FEV1 78% of predicted 8. Chronic right foot wound with MRSA infection in 2015 9. 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 Dupuytren's contracture to bilateral hands 11. Occasional EtOH use, 1-2 drinks weekly 12. Occasional marijuana use 13. Family history of premature coronary artery disease with both father and brother having CABG in their early 50s 14. Both parents from brain aneurysm in their 70s 15. Bilateral internal carotid artery stenosis, right 99%, left 70% per angiogram 16. Postoperative acute blood loss anemia, expected 17. Postoperative paroxysmal atrial fibrillation, unexpected, status post exclusion of the left atrial appendage Plan: 1. Continue aspirin, statin, Plavix, beta jaxon therapy. 2. Continue amiodarone for A. fib prophylaxis. No anticoagulation necessary 3. Encourage incentive spirometry use 10 times every hour while awake. Smoking cessation continues to be encouraged. Bronchodilators per pulmonology 4. Increase activity, ambulate as tolerated. PT/OT/cardiac rehab following 5. GI/DVT prophylaxis 6. Nephrology recommendations appreciated, avoid nephrotoxic agents 7. Insulin management per patient, insulin pump in place 8. Pain control with current medication regimen 9. Accurate I and O's, daily weights 10. Discharge planning in progress. Anticipate discharge to home with home care this afternoon 11. Will make follow-up appointments. More recommendations to follow Time with Patient: Greater than 30
[2020-08-25] MEDS: SODIUM CHLORIDE 0.9% 1,000 ML IV SCH (07:45)
[2020-08-25] MEDS: IPRATROPIUM-ALBUTEROL 3 ML NEB INHALATION SCH ×2 (08:25→11:46)
--- NOTE | 2020-08-25 08:30 | XR ---
EXAMINATION TYPE: XR chest 1V portable DATE OF EXAM: 08/25/2020 COMPARISON: Prior chest x-ray 08/24/2020 HISTORY: Postop coronary artery bypass graft TECHNIQUE: Single frontal view of the chest is obtained. FINDINGS: Minimal left apical pneumothorax persists. Patient is post median sternotomy and left atri al appendage clipping placement. Minimal patchy basilar density is again noted. Cardiomediastinal marleen houette is stable. Aorta is dense. IMPRESSION: Basilar atelectasis, possible small effusion, minimal left apical pneumothorax
[2020-08-25 09:15] LABS: HCT 24.8 % (39.0-53.0); MCHC 34.2 g/dL (31.0-37.0); MCV 93.6 fL (80.0-100.0); Mean Platelet Volume 9.6; Platelet Count 333 k/uL (150-450); RBC 2.65 m/uL (4.30-5.90); RDW 15.1 % (11.5-15.5); WBC 6.5 k/uL (3.8-10.6)
[2020-08-25 09:25] LABS: HGB 8.5 gm/dL (13.0-17.5)
[2020-08-25] MEDS: HEPARIN SODIUM,PORCINE 5,000 UNIT/ML 1 ML VIAL SQ SCH (10:26)
[2020-08-25] MEDS: ASPIRIN 325 MG TAB PO SCH (10:27)
[2020-08-25] MEDS: AMIODARONE 200 MG TAB PO SCH (10:27)
[2020-08-25] MEDS: ATORVASTATIN 80 MG TAB PO SCH (10:27)
[2020-08-25] MEDS: SODIUM BICARBONATE TAB 650 MG TAB PO SCH (10:27)
[2020-08-25] MEDS: CLOPIDOGREL 75 MG TAB PO SCH (10:27)
[2020-08-25] MEDS: MIDODRINE 5 MG TAB PO SCH (10:27)
[2020-08-25 10:48] VITALS: RESP 16
[2020-08-25] MEDS ORDERED: bisacodyL 10 MG SUPP RECTAL SCH (12:00)
[2020-08-25 13:33] VITALS: BP 157/78; PULSE 80; TEMP 96.7
--- NOTE | 2020-08-25 13:54 | P.DS ---
Providers Date of admission: 08/13/20 19:24 Expected date of discharge: 08/25/20 Attending physician: Juan Antonio Chávez Consults: 08/13/20 19:27 Consult Physician Routine Consulting Provider: Joni Rivera Consult Reason/Comments: NSTEMI Do you want consulting provider notified?: Already Contacted 08/13/20 20:34 Consult Physician Routine Consulting Provider: Brayden Farrell Consult Reason/Comments: re: CABG eval Do you want consulting provider notified?: Yes, Notify in am 08/14/20 07:56 Consult Physician Routine Consulting Provider: Albino Lackey Consult Reason/Comments: preop cabg Do you want consulting provider notified?: Already Contacted 08/14/20 13:05 Consult Physician Routine Consulting Provider: Sandhya Florez Consult Reason/Comments: ckd; Aranda patient; preop cabg Do you want consulting provider notified?: Yes 08/18/20 11:53 Consult Physician Routine Consulting Provider: Nallely Ramirez Consult Reason/Comments: Right carotid artery stenosis Do you want consulting provider notified?: Yes 08/19/20 08:58 Consult to Anesthesia Routine Consulting Provider: Anesthesia,Services Consult Reason/Comments: Cardiac Surgery Pre-Op 08/20/20 12:50 Consult Physician Routine Consulting Provider: Mayo Bedoya Consult Reason/Comments: med mgmt Do you want consulting provider notified?: Already Contacted Primary care physician: Cheryl Roach MD Hospital Course: FINAL DIAGNOSIS: 1. Triple-vessel coronary artery disease, non-STEMI this admission 2. History of coronary artery disease with stent placement to the right coronar y artery in 2004 3. Hypertension 4. Hyperlipidemia, treated, cholesterol 161, LDL 85 5. Type 1 insulin-dependent diabetes with insulin pump in place and peripheral neuropathy, hemoglobin A1c 8.1% 6. Chronic kidney disease stage IIIB with chronic anemia, baseline creatinine 1.8 7. Current tobacco dependence, FEV1 78% of predicted 8. Chronic right foot wound with MRSA infection in 2014 9. 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 Dupuytren's contractured to bilateral hands 11. Occasional EtOH use 12. Occasional marijuana use 13. Family history of premature coronary artery disease, both parents from brain aneurysm in their 70s 14. Bilateral internal carotid artery stenosis, right 99%, left 70% per angiogram 15. Postoperative acute blood loss anemia, expected 16. Postoperative paroxysmal atrial fibrillation, unexpected PRINCIPAL PROCEDURE: 1. Off-pump coronary artery bypass grafting 3 with the left internal mammary artery to the left anterior descending artery, reverse saphenous vein graft to the first obtuse marginal and right coronary arteries 2. Endoscopic vein harvesting of the left greater saphenous vein from the mid calf to the groin level 3. Exclusion of the left atrial appendage with a 35 mm AtriCure clip HISTORY OF PRESENT ILLNESS: This is a 59-year-old active gentleman who follows on an outpatient basis with Dr. Cheryl Roach for primary care, Dr. Lawrence Roach for endocrinology, and Dr. Aranda for nephrology. He presented to [facility] emergency room with complaints of all over body aches mostly confined to his arms and shoulders associated with shortness of breath, unrelieved with rest or position changes. He was concerned with his symptoms for Covid so he called EMS. In the emergency room chest x-ray was obtained demonstrating no active cardiopulmonary process. EKG demonstrated normal sinus rhythm with T-wave inversions in V2 through V6. His pain was relieved with administration of IV morphine. His troponins were elevated and he was ruled in for non-STEMI. Covid test was negative. He was recommended to undergo heart catheterization which demonstrated mid LAD stenosis 95%, OM1 60-70%, OM 2 100%, mid circumflex 80%, and mid RCA 85%. Consultation was placed to Dr. Chávez from cardiothoracic surgery. He was recommended to undergo off-pump coronary artery bypass surgery. The usual perioperative course was discussed in detail with the patient, all risks and benefits were explained, all questions were answered, and consent was obtained to proceed with surgery. During the course of preoperative testing the patient was discovered to have significant carotid artery stenosis and appropriate consultations were made. He was kept inpatient due to the nature of his disease process. HOSPITAL COURSE: The patient was taken to the preoperative area 08/20/2020, prepared in the usual fashion, and subsequently taken to the operating room where Dr. Chávez performed triple-vessel off-pump CABG. Upon completion of surgery the patient was transferred to the cardiovascular intensive care unit where he was recovered and monitored hemodynamically. He remained neurologically intact, was extubated, all lines, tubes, and drips were discontinued when appropriate, and he was transferred to 3 S. cardiac stepdown unit for further monitoring and rehabilitation. He did experience acute postope rative blood loss anemia and was transfused. He also experienced postoperative paroxysmal atrial fibrillation which was treated with amiodarone. His oxygen was titrated down, he continued to work with physical and occupational therapy, he was tolerating oral diet, his pain was controlled, and he was ready to be discharged to home with [facility] care on postoperative day #5. He received written and verbal instruction regarding his medications, activity restrictions, signs and symptoms requiring physician notification, and follow-up appointments. COMPLICATIONS: The patient experienced postoperative acute blood loss anemia and paroxysmal atrial fibrillation, both which were treated accordingly. Patient Condition at Discharge: Stable Plan - Discharge Summary New Discharge Prescriptions: New Aspirin 325 mg PO DAILY #30 tab Amiodarone [Cordarone] 400 mg PO BID #40 tab Metoprolol Tartrate [Lopressor] 50 mg PO BID@0600,1800 #60 tab Clopidogrel [Plavix] 75 mg PO DAILY #30 tab Pantoprazole [Protonix] 40 mg PO AC-BRKFST #30 tablet.dr Musa-Docusate Sodium [Senokot-S] 2 each PO HS tab Sodium Bicarbonate Tab 650 mg PO TID #90 tab Acetaminophen Tab [Tylenol] 1,000 mg PO Q6HR PRN tab PRN Reason: Fever And/ Or Pain Continue Insulin Aspart (For Pump) [NovoLOG (For Pump)] 0.01 unit SQ-PUMP CONTINUOUS Vitamin D3 (Unknown Strength) 1 tab PO DAILY Rosuvastatin [Crestor] 10 mg PO DAILY #30 tab Ferrous Sulfate [Iron (65 MG Elemental)] 325 mg PO Q48H #30 tab Discontinued Aspirin EC [Ecotrin Low Dose] 81 mg PO DAILY Enalapril Maleate [Vasotec] 2.5 mg PO DAILY Discharge Medication List Insulin Aspart (For Pump) [NovoLOG (For Pump)] 0.01 unit SQ-PUMP CONTINUOUS 01/31/20 [History] Vitamin D3 (Unknown Strength) 1 tab PO DAILY 08/13/20 [History] Acetaminophen Tab [Tylenol] 1,000 mg PO Q6HR PRN tab 08/25/20 [Rx] Amiodarone [Cordarone] 400 mg PO BID #40 tab 08/25/20 [Rx] Aspirin 325 mg PO DAILY #30 tab 08/25/20 [Rx] Clopidogrel [Plavix] 75 mg PO DAILY #30 tab 08/25/20 [Rx] Ferrous Sulfate [Iron (65 MG Elemental)] 325 mg PO Q48H #30 tab 08/25/20 [Rx] Metoprolol Tartrate [Lopressor] 50 mg PO BID@0600,1800 #60 tab 08/25/20 [Rx] Pantoprazole [Protonix] 40 mg PO AC-BRKFST #30 tablet. 08/25/20 [Rx] Rosuvastatin [Crestor] 10 mg PO DAILY #30 tab 08/25/20 [Rx] Sennosides-Docusate Sodium [Senokot-S] 2 each PO HS tab 08/25/20 [Rx] Sodium Bicarbonate Tab 650 mg PO TID #90 tab 08/25/20 [Rx] Follow up Appointment(s)/Referral(s): Cheryl Roach MD [Primary Care Provider] - 09/04/20 3:30 pm Sarah Beth Roman NPC [Nurse Practitioner] - 09/01/20 11:00 am [facility] [NON-STAFF] - 4 Weeks (You will receive a phone call approximately 4-6 weeks after surgery for evaluation for cardiac rehab) Lawrence Roach MD [REFERRING] - 2 Weeks Joni Rivera DO [STAFF PHYSICIAN] - 09/05/20 2:30 pm Briseyda Moran NPC [Nurse Practitioner] - 09/24/20 3:00 pm Rene Silva DO [STAFF PHYSICIAN] - 3 Weeks Juan Antonio Chávez MD [STAFF PHYSICIAN] - 09/11/20 1:00 pm [facility], [NON-STAFF] - 1-2 Days Ho Aranda DO [STAFF PHYSICIAN] - 2 Weeks (office will call with appointment) Ambulatory/Diagnostic Orders: Complete Blood Count w/diff [LAB.AMB] Time Frame: 3 Days, Location: None Selected Comprehensive Metabolic Panel [LAB.AMB] Time Frame: 3 Days, Location: None Selected Patient Instructions/Handouts: How to Stop Smoking (DC) Activity/Diet/Wound Care/Special Instructions: DISCHARGE INSTRUCTIONS: 1. No driving for 4 weeks, or until physician gives their ok. 2. The patient should sleep in their own bed, no medical bed needed. 3. Stairs are not an issue. If the bedroom is upstairs, it is advised that the patient go up at night and down in the morning for the first week. Go slowly, using handrail and take 1 step at a time. 4. RUTHANN hose are to be worn for 30 days or until physician discontinues. 5. Heart hugger is to be worn 100% of the time until physician discontinues.(except when showering) 6. No lifting, pushing, or pulling more than 10 pounds for 12 weeks. The physician will advise of any restriction changes. 7. The patient is expected to continue the prescribed walking program. 8. Continue pain control per as needed orders. 9. Continue with incentive spirometry and splinting/heart hugger until otherwise directed by the physician. 10. Must shower daily using liquid antibacterial soap and a separate white washcloth for each individual incision. 11. Routine sternal incision care. No powders, lotions, ointments on incisions. No dressings are necessary on incisions unless they are draining. Dermabond tape is to remain on sternal incision until surgeon follow-up. 12. Please call surgeon/ADMINISTRATIVE LIAISON for temp greater than 101 F or purulent drainage from incisions. 13. All prescriptions given by surgeon for 30 days. Refills need to be filled through nurse rn bsn/primary care physician. 14. A Red armband has been placed on the patient. It should be worn for 30 days post surgery and will be removed by the cardiac surgeons. If an ER visit is necessary, please make sure the number on the Red armband is called. 15. You have been referred to and are expected to begin Cardiac Rehab in approximately 4-6 weeks. HOME HEALTH SERVICES TO PROVIDE: RN SKILLED HOME CARE SERVICES FOR POST-OP SURGICAL PATIENTS WITH THE FOLLOWING: Coronary Artery Bypass Surgery (CABG), Mitral Valve Replacement/Repair ( MVR), Aortic Valve Replacement/Repair (AVR) RN TO CONTINUE EDUCATION FROM ``ROAD TO A HEALTH HEART PATIENT EDUCATION MANUAL (GIVEN TO PATIENT IN THE HOSPITAL) MEDICATION RECONCILIATION WITH EDUCATION NEEDED ON FIRST HOME VISIT EMPHASIZE IMPORTANCE OF WEARING BREAST SUPPORT/HEART HUGGER ENCOURAGE USE OF INCENTIVE SPIROMETER 10 X EVERY HOUR WHILE AWAKE ENCOURAGE UTILIZATION OF LOWER EXTREMITY COMPRESSION STOCKINGS/RUTHANN HOSE and ELEVATE LEGS ABOVE LEVEL OF HEART WHILE AT REST. ENCOURAGE AMBULATION 3-5x/day INCREASING TOLERATES, WHILE AVOIDING EXTREMES IN TEMPERATURE FREQUENCY: RN TO OPEN THE PATIENT WITHIN 24 HOURS OF DISCHARGE FROM THE HOSPITAL WITH TELEHEALTH INSTALLED AT [facility] [place], RN TO VISIT 2-3 X A WEEK FOR 4 WEEKS ESTABLISHED BY PATIENT NEEDS. LABORATORY: CBC, CMP TO BE DRAWN ON THE THIRD DAY HOME, (RAN STAT) FAX RESULTS TO [phone]. TELEHEALTH PARAMETERS: WEIGHT: NOTIFY MD OF WEIGHT GAIN OF 2 LBS IN 24 HOURS OR 5 LBS IN ONE WEEK HR: NOTIFY MD OF HR <55 BPM OR HR>100 BPM BP: NOTIFY MD IF BP <90/55 OR BP>140/100 O2 SAT: NOTIFY MD IF PO2<93% ON ROOM AIR SEND TELEHEALTH REPORT TO PROP MAKING SUPERVISOR AND CARDIOVASCULAR SURGEON THE FIRST WEEK OF CARE AND THEN BI-WEEKLY. PLEASE ADDITIONALLY COMMUNICATE ANY ABNORMALS AND NEW FINDINGS TO THE SURGEONS OFFICE. For any questions or concerns please call engineer rf deployment Sarah Beth @ or Cam @ Discharge Disposition: HOME WITH HOME HEALTH SERVICES
--- NOTE | 2020-08-25 14:32 | P.PN ---
Subjective Progress Note Date: 08/25/20 HISTORY OF PRESENT ILLNESS: Patient examined at the bedside. Patient is status post CABG 3. POD #5. Patient denies chest pain or pressure. Denies shortness of breath. Patient states he has been up ambulating. He is maintaining sinus mechanism. He is going to be discharged home today. PHYSICAL EXAM: VITAL SIGNS: Reviewed. GENERAL: Well-developed in no acute distress. NECK: Supple. No JVD or thyromegaly LUNGS: Respirations even and unlabored. Lungs essentially clear to auscultation bilaterally. HEART: Regular rate and rhythm. S1 and S2 heard. Sternal incision clean and dry EXTREMITIES: Normal range of motion. No clubbing or cyanosis. Peripheral pulses intact. No lower extremity edema ASSESSMENT: Non-STEMI, Coronary artery disease, status post CABG 3 Paroxysmal atrial fibrillation, currently maintaining sinus mechanism Hypertension Hyperlipidemia Chronic kidney disease Type 1 insulin-dependent diabetes Bilateral carotid stenosis, right 99% and left 70% per angiogram Occasional alcohol use Occasional marijuana use PLAN: Continue current cardiac medications Patient is stable for discharge home today from a cardiac perspective. He is to follow up outpatient with Dr. Rivera. Nurse practitioner note has been reviewed by physician. Signing provider agrees with the documented findings, assessment, and plan of care. Objective - Vital Signs Vital signs: Vital Signs Temp 96.7 F L 08/25/20 11:50 Pulse 69 08/25/20 11:59 Resp 16 08/25/20 11:50 BP 157/78 08/25/20 11:50 Pulse Ox 100 08/25/20 11:50 Intake & Output 08/24/20 08/25/20 08/25/20 18:59 06:59 18:59 Intake Total 1287 720 Balance 1287 720 Weight 65.5 kg Intake: IV 0 Lactated Ringers 1,000 ml 0 @ 20 mls/hr IV .Q24H JACKI Rx#:[id number] Oral 977 720 Blood Product 310 Rc As-1 Unit 310 [id number] Other: Voiding Method Urinal Urinal Urinal # Voids 2 1 1 ABP, PAP, CO, CI - Last Documented Arterial Blood Pressure 134/55 Pulmonary Artery Pressure 32/15 Cardiac Output 7.1 Cardiac Index 4.1 - Labs CBC & Chem 7: 08/25/20 07:19 08/25/20 07:19 Labs: Abnormal Lab Results - Last 24 Hours (Table) 08/18/20 08/25/20 08/25/20 Range/Units 06:43 07:19 07:19 RBC 2.65 L (4.30-5.90) m/uL Hgb 8.5 L D (13.0-17.5) gm/dL Hct 24.8 L (39.0-53.0) % Sodium 132 L (137-145) mmol/L BUN 49 H (9-20) mg/dL Creatinine 2.65 H (0.66-1.25) mg/dL Calcium 8.3 L (8.4-10.2) mg/dL Alkaline Phosphatase 354 H (38-126) U/L Total Protein 5.7 L (6.3-8.2) g/dL Albumin 3.1 L (3.5-5.0) g/dL Crossmatch See Detail
--- NOTE | 2020-08-25 14:37 | PN ---
PROGRESS NOTE The patient is seen for followup post coronary artery bypass surgery. He is currently doing well. He is actually scheduled for discharge today. The patient denies any significant complaints. He has had good urine output. PHYSICAL EXAMINATION: On examination today, blood pressure is 137/74, heart rate of 80 per minute. Patient is afebrile. Examination shows no evidence of edema of lower extremities. Abdomen is soft, nontender. VASCULAR TECHNOLOGIST exam grossly intact. LABS: Labs show sodium 132, potassium 4.7, hemoglobin 8.5, serum creatinine 2.65. ASSESSMENT: 1. Chronic kidney disease, stage 3B to 4 secondary to diabetic kidney disease. 2. Acute kidney injury secondary to acute tubular necrosis post coronary artery bypass surgery. 3. Hyponatremia, now resolved. PLAN: May discontinue the midodrine. Maintain off of Lasix for now. Patient can be discharged. We will follow up in the office in about one week's time. MMODL / IJN: [id number] /
--- NOTE | 2020-08-25 14:45 | P.PN ---
Subjective Progress Note Date: 08/25/20 Principal diagnosis: Acute non-ST elevated myocardial infarction and severe coronary artery disease Patient was reevaluated today on 08/18/2020, patient is waiting for final decision regarding his surgery. He was found to have significant carotid artery disease, and decision is yet to be made regarding his carotid surgery and CABG. From the pulmonary perspective, patient was seen by us, and we'll clear him for surgery. Patient has no active pulmonary symptoms whatsoever. Labs today showed hemoglobin of 7.3 WBC count is 4.8 electrolytes are normal renal profile is abnormal with a BUN of 23 creatinine is 1.92. Reevaluated today on 08/19/2020, patient is scheduled to have off pump coronary artery bypass surgery tomorrow by Dr. Chávez. Patient was already seen by vascular surgery, and the plan to eventually perform carotid endarterectomy on this patient in the near future but definitely after his CABG. Patient has bilateral internal carotid stenosis with right greater than left. Right ICA is 99%, left ICA is 70% stenosis. Again his carotid surgery will likely be scheduled in 4-6 weeks. Patient was reevaluated today on 08/20/2020, patient just came back to the ICU, he is off pump CABG 3 with REID to LAD, saphenous vein graft to first obtuse marginal and RCA arteries exclusion of left atrial appendage with 35 mm articure clip. Patient is in the ICU, he is now on mechanical ventilation, his ventilator settings are assist control rate of 10 increased at 12, tidal volume is 500, FiO2 is 40%, and PEEP is 5.ABG showed a pO2 of over 400 pCO2 of 47 pH of 7.31. Hence his rate was increased up to 12. Postoperative chest x-ray showed postsurgical changes with small tiny left apical pneumothorax but there is a chest tube in place, and by basilar atelectasis, expected postoperatively. Reevaluated today on 08/21/2020, patient remains in the ICU, he is status post off-pump CABG 3 with REID to LAD, saphenous vein graft to first obtuse marginal and right coronary arteries. Patient was extubated yesterday uneventfully at 16:22. And his post extubation course has been uneventful. Patient is achieving 1000 mL on his incentive spirometer. He is in sinus rhythm, hemodynamically stable, cardiac output is 6.1 index is 3.5. CVP is 6. Chest tube and mediastinal tube on low suction, no air leak is noted. Serosanguineous drainage is noted. No major issues in the last 12 hours Patient was reevaluated today on 08/22/2020, he is postoperative day #2, off pump CABG with REID to LAD and saphenous vein graft to obtuse marginal and right coronary artery. Patient is doing fairly well today, however his hemoglobin is down to 5.6, and he is to receive at least 1 unit of packed RBCs today. Chest x-ray showed minimal postoperative changes and atelectasis, expected. Patient is doing well with incentive spirometry. Renal functioning remains marginal wit h a BUN of 39 and creatinine of 2.68, that being addressed by nephrology. Overall, clinically the patient is doing fairly well Reevaluated today on 08/23/2020, patient remains in the ICU, went into atrial fibrillation this morning, patient is to be started on amiodarone protocol. His hemoglobin responded well to transfusion, it is 6.9 today. Patient denies any shortness of breath, he has some complaint of pain at the surgical site left chest tube insertion site. He is hemodynamically stable. And his O2 saturations 97% on room air. Patient is in atrial fibrillation, rate about 1:15 per minute. And again he is about to be started on amiodarone. Chest x-ray showed minimal bibasilar atelectasis. Reevaluated today on 08/24/2020, patient is now in sinus rhythm, he was dynamically stable, he is on room air, asymptomatic, hemoglobin is 6.7 today. All his lines and catheters are out, patient has a very minimal left apical tiny pneumothorax. Lantus transfer the patient out of the ICU to a regular medical floor today. Or at least a monitored bed On 08/25/2020 patient seen in follow-up on selective care unit, he is awake and alert, in no acute distress, and pulse ox 100%, hemodynamically has been stable, no fever or chills, denies chest x-ray has been reviewed showing gastric atel ectasis, with the possible small effusions, and minimal left apical pneumothorax. No complaints of dyspnea or chest pain, patient has been working on incentive spirometer. Patient has been tolerating ambulation, he received 1 unit of packed red blood cells yesterday, today's hemoglobin is 8.5. Renal profile sodium improved on today's labs, with BUN 49, and creatinine of 2.65 Objective - Vital Signs Vital signs: Vital Signs Temp 96.7 F L 08/25/20 11:50 Pulse 69 08/25/20 11:59 Resp 16 08/25/20 11:50 BP 157/78 08/25/20 11:50 Pulse Ox 100 08/25/20 11:50 Intake & Output 08/24/20 08/25/20 08/25/20 18:59 06:59 18:59 Intake Total 1287 720 Balance 1287 720 Weight 65.5 kg Intake: IV 0 Lactated Ringers 1,000 ml 0 @ 20 mls/hr IV .Q24H JACKI Rx#:[id number] Oral 977 720 Blood Product 310 Rc As-1 Unit 310 [id number] Other: Voiding Method Urinal Urinal Urinal # Voids 2 1 1 ABP, PAP, CO, CI - Last Documented Arterial Blood Pressure 134/55 Pulmonary Artery Pressure 32/15 Cardiac Output 7.1 Cardiac Index 4.1 - Exam GENERAL EXAM: Alert, very pleasant, 59-year-old white male, on room air,, comfortable in no apparent distress. HEAD: Normocephalic/atraumatic. EYES: Normal reaction of pupils, equal size. Conjunctiva pink, sclera white. NOSE: Clear with pink turbinates. THROAT: No erythema or exudates. NECK: No masses, no JVD, no thyroid enlargement, no adenopathy. CHEST: No chest wall deformity. Symmetrical expansion. She'll incisions clean dry and intact, and chest tube sites are clean dry and intact LUNGS: Equal air entry with no crackles, wheeze, rhonchi or dullness. CVS: Regular rate and rhythm, normal S1 and S2, no gallops, no murmurs, no rubs ABDOMEN: Soft, nontender. No hepatosplenomegaly, normal bowel sounds, no guarding or rigidity. EXTREMITIES: No clubbing, no edema, no cyanosis, 2+ pulses and upper and lower extremities. MUSCULOSKELETAL: Muscle strength and tone normal. SPINE: No scoliosis or deformity SKIN: No rashes CENTRAL NERVOUS SYSTEM: Alert and oriented -3. No focal deficits, tone is normal in all 4 extremities. PSYCHIATRIC: Alert and oriented -3. Appropriate affect. Intact judgment and insight. - Labs CBC & Chem 7: 08/25/20 07:19 08/25/20 07:19 Labs: Abnormal Lab Results - Last 24 Hours (Table) 08/18/20 08/25/20 08/25/20 Range/Units 06:43 07:19 07:19 RBC 2.65 L (4.30-5.90) m/uL Hgb 8.5 L D (13.0-17.5) gm/dL Hct 24.8 L (39.0-53.0) % Sodium 132 L (137-145) mmol/L BUN 49 H (9-20) mg/dL Creatinine 2.65 H (0.66-1.25) mg/dL Calcium 8.3 L (8.4-10.2) mg/dL Alkaline Phosphatase 354 H (38-126) U/L Total Protein 5.7 L (6.3-8.2) g/dL Albumin 3.1 L (3.5-5.0) g/dL Crossmatch See Detail Assessment and Plan Plan: Assessment: #1. Acute non-ST elevated myocardial infarction #2. Severe coronary artery disease, status post off-pump CABG 3, postoperative day #5 #3. Severe carotid artery disease/carotid artery stenosis #4. Acute on chronic kidney disease #5. Type 1 diabetes #6. Benign essential hypertension #7. Chronic anemia of chronic kidney disease #8. Peripheral vessel occlusive disease #9. Tobacco dependence syndrome #10. Acute blood loss anemia secondary to surgery, and expectant, and there is also history of chronic anemia related to chronic kidney disease #10. New-onset atrial fibrillation, expected outcome after cardiac surgery, resolved, and patient is currently in sinus mechanism Plan: Patient is doing well, stable, on room air, tolerating ambulation, denies chest x-ray reviewed, showing tiny left apical pneumothorax, asymptomatic, anticipate discharge home today, she will need outpatient follow-up with Dr. Donovan any office in 7 days. I performed a history & physical examination of the patient and discussed their management with my nurse practitioner, Faina Dior. I reviewed the nurse practitioner's note and agree with the documented findings and plan of care. Lung sounds are positive for diminished breath sounds. The findings and the impression was discussed with the patient. I attest to the documentation by the nurse practitioner. Time with Patient: Less than 30
--- NOTE | 2020-08-25 16:31 | P.PN ---
Subjective Progress Note Date: 08/25/20 HISTORY OF PRESENT ILLNESS 59-year-old male one of Dr. Roach's patient with past medical history of diabe zach on insulin pump, history of hypertension, hyperlipidemia, chronic neuropathy who is also noted to have coronary artery disease post PCI and stent placement back in 2004 was also has been having chronic kidney disease taste for. Patient presented to the emergency department today 08/13/2020 complaining of body ache all over his body along with numbness with worsening shortness of breath with n onspecific chest tightness or pressure and claims his neuropathy has been a lot worse he could not feel his feet and hands. His blood sugar has been slightly bit elevated as well. Patient was giving morphine in [facility] apartment started on hydration surprisingly had significant elevated troponin at 7.4 with lactic acid [place] 4[place]4 [place] [address] with CRP of 5 d-dimer 0.6, EKG showed diffuse ST depression in the anterolateral leads with his current symptom with her kidney function is a lot worse initially try to do conservative management patient kept having severe symptoms dye lab technician with Dr. Rivera surprisingly had multiple vessel disease with 95% blockage in the mid LAD 60-70% blockage of the OM1 100% blockage of the small OM to and 80% mid circumflex with 85% of mid RCA no angioplasty was require the patient will be started on aggressive risk factor modification and management along with consult cardiothoracic for possible CABG. 08/14: Patient evaluated this morning, resting in bed, in no acute distress. Patient is currently undergoing testing for possible coronary artery bypass s urgery with the cardiothoracic team. Patient had carotid ultrasound that showed severe right ICA stenosis and moderate left ICA stenosis. Patient became very argumentative and agitated this morning after discussion regarding his insulin pump. 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 If patient and family are agreeable to this and patient has a working insulin pump with the refill of insulin, patient may use his pump to manage his own sugar. 08/15: Patient remained ICU, had severe stenosis of the right carotid artery might need carotid endarterectomy, in the meanwhile with the use of dye and his kidney function currently is not able to go for CT of the neck will be waiting until Tuesday. Cardiothoracic surgery indicated that he need multi-vessel CABG and the same time might require carotid endarterectomy the same time such an arrangement can be probably done early next week. He seen nephrology kidney function slightly better today. 08/16 patient remains in ICU. Underwent CT of the chest today with CTA neck pending. Patient denies any symptoms of chest pain or shortness of breath. Vitals are stable with temp of 98.5 pulse 85 respiratory rate 13 blood pressure 160/104. Blood work suggesting hemoglobin stable at 7.1, sodium 135 creatinine 2.13 BUN 35 CO2 21 chloride 114 blood sugar 69 this morning. Patient continues to use his own insulin pump . Patient agrees on removing the insulin pump close to the surgery. 08/17 patient examined bedside on the floor. Denies any chest pain or shortness of breath. Denies any dizziness or change in mental status. Vitals suggests a temp of 97.8 pulse 85 respiratory rate 18 blood pressure 151/70. assessed sodium 135 chloride 114 CO2 of 21 creatinine improved to 1.93. BUN improved to 28. CT neck with contrast to be completed today. Heparin drip discontinued. Continue IV fluids post CT with contrast 48 hours to prevent contrast-induced nephropathy 08/18: Patient states he is feeling better today. He has been cooperative. CAT scan angiogram of the neck revealed significant stenosis of the proximal right internal carotid artery. Plan to add consult with vascular surgery for evaluation. He denies having any chest pain or shortness of breath. No lightheadedness or dizziness. Nephrology is soft IV fluids. IV iron has been ordered 08/19: Yesterday afternoon, patient underwent bilateral carotid angiography with Dr. Rivera which found 99% right ICA stenosis and 70% left. Vascular surgery is on consult. Cardiothoracic surgery is planning on CABG for tomorrow. There is no plan for carotid artery intervention during this hospitalization. The patient denies any chest pain or shortness of breath. jewel bearing polisher is sinus rhythm. Repeat blood work reveals hemoglobin of 6.7 potassium 3.4. Calcium 6.2. Magnesium 1.2. Cardiothoracic surgery has addressed electrolyte replacements. One unit of packed RBCs for transfusion ordered. 08/20: Patient has gone for CABG. 08/21: Patient is status post off-pump CABG 3 with REID to LAD, saphenous vein grafts to first obtuse marginal and right coronary arteries, exclusion of left atrial appendage with 35 mm AtriCure clip. Patient was successfully extubated yesterday afternoon. He has a mediastinal, left and right pleural chest tubes in place. He is seen this morning intensive care unit, sitting up in a recliner. He has eating his breakfast with no nausea vomiting. He states his chest as feeling sore. He is using incentive spirometry of reaching 1000 miles. Repeat chest x-ray reveals minimal bilateral apical pneumothoraces. Bibasilar infiltrates. Hemoglobin is 6.5 and patient is being transfused 1 unit packed RBCs. Blood sugar running between 101 and 136 and patient states he has a new sensor for his insulin pump for today. He has been afebrile, heart rate 85, blood pressure 130/53. jewel bearing polisher is a sinus rhythm. Other blood work reveals WBC 7.2, platelet count 161. Sodium 131, potassium 4.5, chloride 107, CO2 22, BUN 25 and creatinine 2.09. Patient was ordered for 1 dose of IV Lasix 20 mg today. 08/22: Remains in the intensive care unit. He is complaining of feeling tired cold and fatigued. He is not eating or drinking very well. He denies chest pain and shortness of breath. Ensure has been ordered. Hemoglobin today is 5.6 and transfusion has been ordered. BUN 39 creatinine 2.68. Sodium 130. Blood sugar this morning as 76 but patient was in the 400s yesterday afternoon. He is status post 1 dose of Ferrlecit yesterday and was started on Aranesp. Repeat chest x-ray revealed bilateral consolidation and pleural effusion stable. Postop changes stable with 5% left apical pneumothorax. jewel bearing polisher is a sinus rhythm. Patient has been afebrile, heart rate 80, blood pressure 105/72, pulse ox 99% on room air. 08/23: Patient remains in the intensive care unit. No new complaints today. He denies shortness of breath. He has a little chest discomfort. He states he is not sleeping. He is falling asleep for half hour to one hour at a time since he has been admitted. Melatonin will be added. He has been afebrile, heart rate in the 120s, blood pressure 98/53, pulse ox 99% on room air. Patient went into atrial fibrillation last evening and started on amiodarone. Hemoglobin is 6.9. Patient states no plan for transfusion. BUN 48 and creatinine 2.64. Blood sugars running between 102 and 257. He is continued on his insulin pump. Alkaline phosphatase 167. Chest x-ray correlate for mild CHF otherwise consider interstitial pneumonitis with underlying basilar infiltrates and small effusions. Stable less than 5% left apical pneumothorax. 08/24: Patient states he finally slept well last night. He denies any chest pain or shortness of breath. No lightheadedness or dizziness. Hemoglobin this morning is 6.7 and he is being transfused 1 unit packed RBCs. BUN 14 creatinine 2.87. Blood sugar running between 92 and 236. Patient has been afebrile, heart rate 79, blood pressure 125/71, pulse ox 96% on room air. Chest x-ray reveals stable findings, left apical pneumothorax measuring 5-10%. jewel bearing polisher is back in a sinus rhythm. 08/25: Patient states that he is feeling great today and is anxious to be discharged home. He has been afebrile, heart rate 69, blood pressure 157/78, pulse ox 1 100% on room air. Hemoglobin today is at 8.5. BUN 49 creatinine 2.6 5 and sodium 132. Alkaline phosphatase 354. Patient is planning to continue insulin pump at discharge. Patient is scheduled for discharge home later today. REVIEW OF SYSTEMS CONSTITUTIONAL: Well-developed no acute respiratory distress. No fever. No chills. Denies fatigue. EYES: No icterus sclerae, no conjunctivitis. EARS, NOSE, MOUTH, THROAT, and FACE: No sore throat, lymphadenopathy, carotid bruits or deformity. RESPIRATORY: No SOB cough or wheezes. CARDIOVASCULAR: Denies chest pain, denies Palpitation, PND, Orthopnea, or angina. GASTROINTESTINAL: No Abd pain, Nausea or vomiting, no Diarrhea or constipation, No GI Bleed, no distention or masses. Reports loss of appetite. GENITOURINARY: Negative for Hematuria denies dysuria, no kidney stones. INTEGUMENT/BREAST: Negative for any muscular injury with mild osteoarthritis.. HEMATOLOGIC/LYMPHATIC: Negative for bleed or purpura. MUSCULOSKELTAL: Negative for Myalgia or arthralgia. NEURLOGICAL: No LOC, Sz or syncope, blurred vision dizziness or abnormality.. BEHAVIORAL/PSYCH: Negative. ENDOCRINE: Negative. PHYSICAL EXAMINATION Gen: This is a 59-year-old male. He is resting in chair and appears to be comfortable. HEENT: Head is atraumatic, normocephalic. Pupils equal, round. Sclerae is anicteric. NECK: Supple. No JVD. No lymphadenopathy. No thyromegaly. LUNGS: Clear to auscultation. No wheezes or rhonchi. No intercostal retractions. HEART: Irregular rate and rhythm. No murmur. ABDOMEN: Soft. Bowel sounds are present. No masses. No tenderness. EXTREMITIES: No pedal edema. No calf tenderness. NEUROLOGICAL: Patient is awake, alert and oriented x3. Cranial nerves 2 through 12 are grossly intact. ASSESSMENT AND PLAN 1. Acute non-ST elevated myocardial infarction. Patient is status post heart catheterization revealing severe coronary artery disease. Status post off-pump CABG 3 with REID to LAD, saphenous vein grafts to first obtuse marginal and right coronary arteries, exclusion of left atrial appendage with 35 mm AtriCure clip. Continue current management per cardiothoracic team. 2. Acute kidney injury with stage IV chronic kidney disease. Nephrology consult appreciated. 3. Severe carotid artery stenosis, right. Bilateral carotid angiography revealed 99% right internal carotid artery stenosis and 70% left internal carotid artery stenosis. Vascular surgery consult appreciated and signed off. 4. Diabetes mellitus type 1, on insulin pump. Diabetes uncontrolled with hyperglycemia. Plan is to continue insulin pump. 5. Hypertension. Continue Lopressor. 6. Hyperlipidemia. Continue atorvastatin 80 mg daily. 7. Chronic advanced diabetic peripheral neuropathy: Patient should be on at least a starter of neuropathy medication like gabapentin or Lyrica something highly suggested to be done as an outpatient. 8. Anemia of chronic kidney disease with acute blood loss anemia. 9. Chronic tobacco use and dependence. Smoking cessation. 10. Peripheral vascular occlusive disease. 11. History of coronary artery disease with previous stent placement in the proximal and mid RCA in 2004. Continue as in #1. 12. New onset of atrial fibrillation, paroxysmal atrial fibrillation. Patient started on amiodarone 4 mg twice daily, Lopressor 50 mg twice daily. 13. DVT prophylaxis. 14. GI prophylaxis. Protonix. Discharge plan: home with [facility]. Impression and plan of care have been directed as dictated by the signing physician. Cecille Marcum nurse practitioner acting as scribe for signing physician. Objective - Vital Signs Vital signs: Vital Signs Temp 98.7 F 08/25/20 04:00 Pulse 72 08/25/20 08:38 Resp 18 08/25/20 04:00 BP 132/70 08/25/20 04:00 Pulse Ox 96 08/25/20 04:00 Intake & Output 08/24/20 08/25/20 08/25/20 18:59 06:59 18:59 Intake Total 1287 240 Balance 1287 240 Weight 65.5 kg Intake: IV 0 Lactated Ringers 1,000 ml 0 @ 20 mls/hr IV .Q24H JACKI Rx#:[id number] Oral 977 240 Blood Product 310 Rc As-1 Unit 310 [id number] Other: Voiding Method Urinal Urinal # Voids 2 1 ABP, PAP, CO, CI - Last Documented Arterial Blood Pressure 134/55 Pulmonary Artery Pressure 32/15 Cardiac Output 7.1 Cardiac Index 4.1 - Labs CBC & Chem 7: 08/25/20 07:19 08/25/20 07:19 Labs: Abnormal Lab Results - Last 24 Hours (Table) 08/22/20 08/25/20 Range/Units 04:41 07:19 Sodium 132 L (137-145) mmol/L BUN 49 H (9-20) mg/dL Creatinine 2.65 H (0.66-1.25) mg/dL Calcium 8.3 L (8.4-10.2) mg/dL Alkaline Phosphatase 354 H (38-126) U/L Total Protein 5.7 L (6.3-8.2) g/dL Albumin 3.1 L (3.5-5.0) g/dL Crossmatch See Detail
== END 2020-08-25 14:30 | disposition home health service (06) | DRG 233 ==
LOC: EC 16:18 → 2SICU 19:24 → 3SCARD 08-16 15:57 → 2SICU 08-20 06:01 → 3SCARD 08-24 11:06
PROVIDERS: ADMIT Internal Medicine Geriatric Medicine; ATTEND Thoracic Surgery (Cardiothoracic Vascular Surgery)
PROC: 4A023N7 Measurement of Cardiac Sampling and Pressure, Left Heart, Percutaneous Approach (ICD-10-PCS; 2020-08-13)
PROC: B2111ZZ Fluoroscopy of Multiple Coronary Arteries using Low Osmolar Contrast (ICD-10-PCS; 2020-08-13)
PROC: B3181ZZ Fluoroscopy of Bilateral Internal Carotid Arteries using Low Osmolar Contrast (ICD-10-PCS; 2020-08-13)
PROC: 5A1935Z Respiratory Ventilation, Less than 24 Consecutive Hours (ICD-10-PCS; 2020-08-20)
PROC: 0BH17EZ Insertion of Endotracheal Airway into Trachea, Via Natural or Artificial Opening (ICD-10-PCS; 2020-08-20)
PROC: 02100Z9 Bypass Coronary Artery, One Artery from Left Internal Mammary, Open Approach (ICD-10-PCS; principal; 2020-08-20 08:00)
PROC: 02L70CK Occlusion of Left Atrial Appendage with Extraluminal Device, Open Approach (ICD-10-PCS; principal; 2020-08-20 08:00)
PROC: 06BP0ZZ Excision of Right Saphenous Vein, Open Approach (ICD-10-PCS; principal; 2020-08-20 08:00)
PROC: 0211093 Bypass Coronary Artery, Two Arteries from Coronary Artery with Autologous Venous Tissue, Open Approach (ICD-10-PCS; principal; 2020-08-20 08:00)
PROC: 06BQ0ZZ Excision of Left Saphenous Vein, Open Approach (ICD-10-PCS; principal; 2020-08-20 08:00)
DX: I21.4 Non-ST elevation (NSTEMI) myocardial infarction (principal); N17.0 Acute kidney failure with tubular necrosis; N18.4 Chronic kidney disease, stage 4 (severe); E87.2 Acidosis; I42.9 Cardiomyopathy, unspecified; D62 Acute posthemorrhagic anemia; I97.190 Other postprocedural cardiac functional disturbances following cardiac surgery; E87.1 Hypo-osmolality and hyponatremia; J90 Pleural effusion, not elsewhere classified; J93.83 Other pneumothorax; I25.10 Atherosclerotic heart disease of native coronary artery without angina pectoris; E78.5 Hyperlipidemia, unspecified; I12.9 Hypertensive chronic kidney disease with stage 1 through stage 4 chronic kidney disease, or unspecified chronic kidney disease; D63.1 Anemia in chronic kidney disease; E10.22 Type 1 diabetes mellitus with diabetic chronic kidney disease; E10.42 Type 1 diabetes mellitus with diabetic polyneuropathy; E10.51 Type 1 diabetes mellitus with diabetic peripheral angiopathy without gangrene; I48.0 Paroxysmal atrial fibrillation; E83.42 Hypomagnesemia; E83.51 Hypocalcemia; E87.70 Fluid overload, unspecified; E10.65 Type 1 diabetes mellitus with hyperglycemia; Z96.41 Presence of insulin pump (external) (internal); Z20.822 Contact with and (suspected) exposure to COVID-19; T50.8X5A Adverse effect of diagnostic agents, initial encounter; F17.210 Nicotine dependence, cigarettes, uncomplicated; J44.9 Chronic obstructive pulmonary disease, unspecified; M72.0 Palmar fascial fibromatosis [Dupuytren]; F12.90 Cannabis use, unspecified, uncomplicated; I65.23 Occlusion and stenosis of bilateral carotid arteries; I34.0 Nonrheumatic mitral (valve) insufficiency; Z96.1 Presence of intraocular lens; E86.1 Hypovolemia; Z79.4 Long term (current) use of insulin; Z79.82 Long term (current) use of aspirin; Z79.899 Other long term (current) drug therapy; Z79.02 Long term (current) use of antithrombotics/antiplatelets; Z86.14 Personal history of Methicillin resistant Staphylococcus aureus infection; Z95.5 Presence of coronary angioplasty implant and graft; Z98.42 Cataract extraction status, left eye; Z98.890 Other specified postprocedural states; Z83.3 Family history of diabetes mellitus; Z82.5 Family history of asthma and other chronic lower respiratory diseases; Z82.49 Family history of ischemic heart disease and other diseases of the circulatory system; Z89.429 Acquired absence of other toe(s), unspecified side; I25.2 Old myocardial infarction
CPT/HCPCS: 36415; 70498; 71045; 71046; 71250; 80048; 80053; 80061; 80074; 81001; 82150; 82330; 82570; 82607; 82728; 82805; 83036; 83540; 83550; 83605; 83615; 83690; 83735; 83880; 83930; 83935; 84100; 84145; 84300; 84443; 84484; 84540; 85025; 85027; 85347; 85379; 85520; 85610; 85730; 86140; 86850; 86891; 86900; 86901; 86920; 87040; 87070; 87635; 93005; 93306; 93458; 93880; 93922; 93923; 93930; 93970; 94002; 94150; 94640; 96365; 96375; 99285

== ENCOUNTER → 2020-09-12 | Outpatient (CLI) | payer MEDICARE ==
[~2020-09-12] MED LIST: SODIUM CHLORIDE 0.9% 500 ML 500 ML in EMPTY BAG 1 BAG IV PRN; SODIUM FERRIC GLUCONAT-SUCROSE 125 MG in SODIUM CHLORIDE 0.9% 100 ML IVPB NR
[2020-09-12 10:39] VITALS: BP 157/74; PULSE 63; RESP 18; TEMP 98.1
== END | disposition home or self-care (01) ==
LOC: PROCWHC3 10:23
PROVIDERS: ATTEND Internal Medicine
DX: D50.9 Iron deficiency anemia, unspecified (principal); R74.01 Elevation of levels of liver transaminase levels
CPT/HCPCS: 96365; J2916

== ENCOUNTER → 2020-09-19 | Outpatient (CLI) | payer MEDICARE ==
--- NOTE | 2020-09-19 09:37 | US ---
EXAMINATION TYPE: US abdomen complete DATE OF EXAM: 09/19/2020 COMPARISON: CT 2019 CLINICAL HISTORY: R74.01 ELEV LIVER TRANSAMINASE LEVELS. Elevated liver enzymes EXAM MEASUREMENTS: Liver Length: 17.1 cm Gallbladder Wall: 0.2 cm CBD: 0.5 cm Spleen: 9.6 cm Right Kidney: 10.4 x 4.2 x 4.3 cm Left Kidney: 9.7 x 5.5 x 4.9 cm Pancreas: visualized portions wnl, limited by overlying midline bowel gas Liver: measures in upper limits of normal Gallbladder: wnl Evidence for sonographic Hendrix's sign: no CBD: wnl Spleen: wnl Right Kidney: fullness of renal pelvis Left Kidney: wnl Upper IVC: wnl Abd Aorta: atherosclerotic changes 10.2cm left pleural effusion The liver is homogenous. The intrahepatic portion of the IVC and proximal abdominal aorta are within normal limits. There is no evidence of cholelithiasis. Common bile duct is unremarkable. The visu alized portions of the pancreas are homogenous. The spleen is unremarkable. No renal lesions are seen. IMPRESSION: Mild fullness of the right renal collecting system.
== END | disposition home or self-care (01) ==
LOC: RADUSWWP 08:28
PROVIDERS: ATTEND Internal Medicine
DX: N28.89 Other specified disorders of kidney and ureter (principal)
CPT/HCPCS: 76700

== ENCOUNTER → 2020-10-13 | Outpatient (CLI) | payer MEDICARE ==
[2020-10-13 11:02] LABS: Anisocytosis Slight; Basophils % (A) 1 %; Eosinophils # (A) 0.3 k/uL (0-0.7); Eosinophils % (A) 5 %; HCT 31.8 % (39.0-53.0); HGB 10.1 gm/dL (13.0-17.5); Lymphocytes # (A) 1.4 k/uL (1.0-4.8); Lymphocytes % (A) 24 %; MCH 29.2 pg (25.0-35.0); MCHC 31.9 g/dL (31.0-37.0); MCV 91.4 fL (80.0-100.0); Mean Platelet Volume 7.5; Monocytes # (A) 0.3 k/uL (0-1.0); Monocytes % (A) 5 %; Neutrophils # (A) 3.6 k/uL (1.3-7.7); Neutrophils % (A) 64 %; Platelet Count 292 k/uL (150-450); RBC 3.48 m/uL (4.30-5.90); RDW 17.9 % (11.5-15.5); WBC 5.7 k/uL (3.8-10.6)
[2020-10-13 11:14] LABS: Potassium 5.2 mmol/L (3.5-5.1)
== END | disposition home or self-care (01) ==
LOC: LABWHC1 09:59
PROVIDERS: ATTEND Surgery
DX: I65.21 Occlusion and stenosis of right carotid artery (principal)
CPT/HCPCS: 36415; 80051; 82565; 84520; 85025

== ENCOUNTER 2020-10-14 07:42 | Inpatient (IN) | payer MEDICARE, OTHER ==
[2020-10-10 11:19] VITALS: BMI 18.5
[~2020-10-14 07:42] MED LIST changes: +DEXAMETHASONE SOD PHOSPHATE 4 MG/ML 1 ML VIAL IV ONE; +LACTATED RINGERS 1,000 ML IV SCH; +LIDOCAINE 1% (10MG/ML) FOR IV START INTRADERMA PRN; +MIDAZOLAM 2 MG/2 ML VIAL IV PRN; +ONDANSETRON 4 MG/2 ML VIAL IVP ONE; -SODIUM CHLORIDE 0.9% 500 ML 500 ML in EMPTY BAG 1 BAG IV PRN; -SODIUM FERRIC GLUCONAT-SUCROSE 125 MG in SODIUM CHLORIDE 0.9% 100 ML IVPB NR
[2020-10-14] MEDS ORDERED: NITROGLYCERIN-D5W PMX 50 MG in DEXTROSE/WATER 1 250ML.BAG IV ONE (08:00)
[2020-10-14] MEDS ORDERED: PHENYLEPHRINE 40 MG in SODIUM CHLORIDE 0.9% 250 ML IV ONE (08:00)
[2020-10-14 08:22] LABS: Glucose,Whole Blood 242 mg/dL (75-99)
[2020-10-14] MEDS ORDERED: LIDOCAINE 1% INJ 10MG/ML (20 ML MDV) ONE ×2 (08:39→09:24)
[2020-10-14] MEDS ORDERED: ePHEDrine SULFATE/0.9% NACL/PF 50 MG/5 ML SYRINGE IV ONE (09:24)
[2020-10-14] MEDS ORDERED: PHENYLEPHRINE-0.9% NACL SYG 1,000 MCG/10 ML SYRINGE ONE (09:24)
[2020-10-14] MEDS ORDERED: PROPOFOL 10 MG/ML 20 ML VIAL IV ONE (09:24)
[2020-10-14] MEDS ORDERED: GLYCOPYRROLATE 0.2 MG/ML 2 ML VIAL ONE (09:24)
[2020-10-14] MEDS ORDERED: fentaNYL (PF) 50 MCG/ML 2 ML AMP ONE (09:24)
[2020-10-14] MEDS ORDERED: MIDAZOLAM 2 MG/2 ML VIAL ONE (09:24)
[2020-10-14] MEDS ORDERED: NEOSTIGMINE 1 MG/ML 10 ML VIAL ONE (09:24)
[2020-10-14] MEDS ORDERED: SUCCINYLCHOLINE CHLORIDE 100 MG/5 ML SYR IV ONE (09:24)
[2020-10-14] MEDS ORDERED: PROTAMINE SULFATE 10 MG/ML 5 ML VIAL IV ONE (09:24)
[2020-10-14] MEDS ORDERED: HEPARIN SODIUM,PORCINE 10,000 UNIT/ML 1 ML VIAL ONE (09:24)
[2020-10-14] MEDS ORDERED: HEPARIN SODIUM,PORCINE 2,000 UNIT in SODIUM CHLORIDE 0.9% 500 ML 1,000 ML IRRIGATION ONE (10:00)
[2020-10-14] MEDS ORDERED: SODIUM CHLORIDE 0.9% IRRIGATION ONE (10:03)
[2020-10-14] MEDS ORDERED: BACITRACIN IRRIGATION ONE (10:03)
[2020-10-14] MEDS ORDERED: CEFAZOLIN IRRIGATION ONE (10:03)
[2020-10-14 10:27] LABS: Glucose,Whole Blood 192 mg/dL (75-99)
[2020-10-14 10:55] LABS: Glucose,Whole Blood 185 mg/dL (75-99)
--- NOTE | 2020-10-14 10:56 | P.ANPRN ---
Procedure Note - Anesthesia - Invasive Line Left Arterial Line Time Out Performed: Yes Date of Procedure: 10/14/20 Time of Procedure: 08:50 Location of Patient: PreOp Preparation: Sterile Prep, Sterile Dressing Arterial Line Location: Radial Ultrasound Used: No Purpose - Visualization and Identification of Vasculature: No Needle Guage: 20 Image Stored and Saved: No Narrative: Central line placement per sterile protocol utilized.
[2020-10-14] MEDS ORDERED: MAG HYDROX/AL HYDROX/SIMETH 30 ML CUP PO PRN (12:01)
[2020-10-14] MEDS ORDERED: ACETAMINOPHEN TAB 325 MG TAB PO PRN (12:01)
[2020-10-14] MEDS ORDERED: BENZOCAINE/MENTHOL LOZENG 1 EACH LOZENGE MUCOUS MEM PRN (12:01)
[2020-10-14] MEDS ORDERED: TRIMETHOBENZAMIDE 100 MG/ML 2 ML VIAL IM PRN (12:01)
--- NOTE | 2020-10-14 12:01 | P.OP ---
Description of Procedure: Date of Procedure: 10/14/2020 Preoperative Diagnosis: Right Internal carotid artery stenosis greater than 95% Postoperative Diagnosis: Same Procedure(s) Performed: Right carotid endarterectomy with patch angioplasty Anesthesia: KIRSTYA Surgeon: Rene Silva Estimated Blood Loss (ml): 30 mL IV Fluids/Urine Output: See anesthesia record Pathology: Right carotid plaque Condition: stable Disposition: PACU Indications for Procedure: 59-year-old gentleman with history of bilateral carotid artery stenosis greater than 95% bilaterally with the right carotid demonstrating a subtotal occlusion with a sliver of contrast seen on CT angiogram. At the time of diagnosis he also had three-vessel disease for his heart and was having chest pain and therefore underwent a CABG. He is 6 weeks post CABG and doing well and wants his carotid endarterectomy performed. We obtained a carotid Doppler prior to surgery this morning and it still demo nstrated patency of the internal carotid artery with greater than 95% stenosis. Operative narrative: An oblique incision was then created just anterior to the sternocleidomastoid musculature with a 10 blade scalpel and dissection was carried down to the carotid sheath. The carotid sheath was then entered after facial vein was located and suture ligated in normal fashion. The common carotid, internal carotid, external carotid and superior thyroid arteries were located and dissected free in a meticulous fashion circumferentially and controlled with vessel loops. Attention was then placed to locating the vagus nerve as well as hypoglossal nerve which were both spared. The ansa cervicalis nerve was located directly over the internal carotid artery and therefore was ligated in normal fashion. Once controlled patient was administered heparin and followed with ACTs for appropriate heparinization. Once ACT was above 200 the proximal and distal aspects of the dissection were then controlled with vascular clamps. Arteriotomy was then created with 11 blade scalpel and extended with Hazel Willis scissors. Utilizing pressure tubing stump pressures were obtained and mean was 67. No shunt was required and endarterectomy was then performed with a [place] and elevator. The plaque was then feathered at the distal aspect and the internal carotid artery and removed. The area was copiously irrigated with heparinized saline and all free debris was removed. A 7-0 Prolene suture was then placed to tack the distal aspect of the dissection at the internal carotid artery. A 0.8 x 8 cm bovine pericardial patch was then chosen and patch angioplasty was performed with 6-0 Prolene suture in a running fashion. Prior to last sutures being placed the inflow was released flushing any free debris out of the patch. This was reclamped and the internal carotid artery was released revealing good brisk flow and was once again reclamped. The external carotid and superior thyroid artery were then released followed by the common carotid artery to allow any free debris to be flushed into the external system. Final sutures were placed and secured. Internal carotid artery control was then released. Good pulsatile flow was noted through the patch and a Doppler was utilized demonstrating good brisk flow into the internal, external carotid arteries without any signs of obstruction. Hemostasis was then assured with Surgicel. A 10-Eritrean JANNIE drain was then placed in normal fashion and secured with 3-0 nylon suture. The incision was then closed in a multilayer fashion after hemostasis was assured. The skin was then cleansed and dressings were placed. Patient tolerated the procedure well and was following commands and moving all extremities. Patient was then sent to PACU for recovery.
[2020-10-14] MEDS: fentaNYL (PF) 50 MCG/ML 2 ML AMP IVP PRN ×2 (12:45→12:51)
[2020-10-14] MEDS ORDERED: LACTATED RINGERS 1,000 ML IV ONE (13:15)
[2020-10-14 13:43] LABS: Glucose,Whole Blood 105 mg/dL (75-99)
[2020-10-14 14:30] LABS: Anisocytosis Slight; Basophils % (A) 0 %; Eosinophils # (A) 0.1 k/uL (0-0.7); Eosinophils % (A) 1 %; HCT 28.6 % (39.0-53.0); HGB 9.4 gm/dL (13.0-17.5); Lymphocytes # (A) 0.6 k/uL (1.0-4.8); Lymphocytes % (A) 6 %; MCH 29.7 pg (25.0-35.0); MCHC 32.7 g/dL (31.0-37.0); MCV 90.8 fL (80.0-100.0); Mean Platelet Volume 7.8; Monocytes # (A) 0.3 k/uL (0-1.0); Monocytes % (A) 3 %; Neutrophils # (A) 8.5 k/uL (1.3-7.7); Neutrophils % (A) 89 %; Platelet Count 278 k/uL (150-450); RBC 3.15 m/uL (4.30-5.90); RDW 17.9 % (11.5-15.5); WBC 9.6 k/uL (3.8-10.6)
[2020-10-14] MEDS: MORPHINE SULFATE 2 MG/ML SYRINGE IVP PRN (14:32)
--- NOTE | 2020-10-14 15:25 | P.CNPUL ---
<Faina Dior M - Last Filed: 10/14/20 15:25> History of Present Illness Consult date: 10/14/20 Reason for consult: other Chief complaint: Right carotid artery stenosis History of present illness: 59-year-old white male patient of Dr. Roach, who presented today on 10/14/2020 for elective right carotid endarterectomy with patch angioplasty for right coronary artery stenosis of greater than 95%. Patient has a recent history of acute non-ST elevated myocardial infarction and underwent three-vessel coronary artery bypass grafting 6 weeks ago, and at the time of preop evaluation he had a carotid Doppler that demonstrated 95% stenosis of the right internal carotid artery. Other medical history includes type 1 diabetes mellitus, chronic kidney disease stage III, hypertension, anemia of chronic kidney disease, peripheral vessel occlusive disease, former smoker. Of note patient did have new onset atrial fibrillation after his cardiac surgery, and went back into sinus rhythm, and did not require any long-term anticoagulation. Patient was discharged home in stable condition on 08/25/2020. Today patient seen in follow-up in the in tensive care unit following his surgery, he is doing well, he is awake and alert, he is currently on Radhames-Synephrine and 0.5 mics per kilo per minute, Lactated Ringers is at 60 ML per hour. Right neck incisions clean dry and intact, trachea is midline, there is no hematoma present, patient is breathing comfortably. Stop her blood work has been reviewed showing hemoglobin of 9.4, with metastases cell count of 9.6, platelet count is 278, potassium was 5.0. Review of Systems All systems: negative Constitutional: Denies chills, Denies fever Eyes: denies blurred vision, denies pain Ears, nose, mouth and throat: Denies headache, Denies sore throat Cardiovascular: Denies chest pain, Denies shortness of breath Respiratory: Denies cough Gastrointestinal: Denies abdominal pain, Denies diarrhea, Denies nausea, Denies vomiting Musculoskeletal: Denies myalgias Integumentary: Denies pruritus, Denies rash Neurological: Denies numbness, Denies weakness Psychiatric: Denies anxiety, Denies depression Endocrine: Denies fatigue, Denies weight change Past Medical History Past Medical History: Coronary Artery Disease (CAD), Diabetes Mellitus, Eye Disorder, Hyperlipidemia, Myocardial Infarction ([place]), Renal Disease, Vascular Disorder Additional Past Medical History / Comment(s): IDDM type I with insulin pump, CKD stage IV, polyneuropathy, dupuytren's bilateral hands, chronic R foot ulcer, chronic bilateral foot pain, chronic low back pain/fracture, R eye cataract, left foot 2cnd and 3rd toe amputated Last Myocardial Infarction Date:: 08/13/20 History of Any Multi-Drug Resistant Organisms: MRSA Date of last positivie culture/infection: 2014 MDRO Source:: right foot Past Surgical History: Coronary Bypass/CABG, Heart Catheterization With Stent, Orthopedic Surgery Additional Past Surgical History / Comment(s): CABG X3 on 08/20/20, L hand fracture with pins, left 2nd and third toe amputation, colonoscopy, L cataract removal/lens implants Past Anesthesia/Blood Transfusion Reactions: No Reported Reaction Date of Last Stent Placement:: 2014 Smoking Status: Former smoker - Past Family History Father Family Medical History: Diabetes Mellitus, Vascular Disorder Additional Family Medical History / Comment(s): Father of brain aneurysm. He had type I diabetes and it ran strongly on father's side of family Mother Family Medical History: Vascular Disorder Additional Family Medical History / Comment(s): Mother from a brain aneurysm. Brother(s) Family Medical History: COPD, Coronary Artery Disease (CAD) Additional Family Medical History / Comment(s): Brother had CABG in his early 50s Daughter(s) Family Medical History: Renal Disease Additional Family Medical History / Comment(s): Daughter of kidney disease Medications and Allergies Home Medications Medication Instructions Recorded Confirmed Type Insulin Aspart (For Pump) [NovoLOG 0.01 unit SQ-PUMP CONTINUOUS 01/31/20 10/10/20 History (For Pump)] Vitamin D3 (Unknown Strength) 1 tab PO DAILY 08/13/20 10/10/20 History Aspirin 325 mg PO DAILY #30 tab 08/25/20 10/10/20 Rx Sodium Bicarbonate Tab 650 mg PO TID #90 tab 08/25/20 10/10/20 Rx Ferrous Sulfate [Feosol] 325 mg PO DAILY 10/10/20 10/10/20 History Lasix 1 tab PO DAILY 10/10/20 History Rosuvastatin [Crestor] 10 mg PO HS 10/14/20 10/14/20 History Allergies Allergy/AdvReac Type Severity Reaction Status Date / Time No Known Allergies Allergy Verified 10/14/20 07:56 Physical Exam Vitals: Vital Signs Temp Pulse Pulse Pulse Resp BP BP 10/14/20 14:40 86 10 L 133/65 10/14/20 14:30 79 11 L 123/63 10/14/20 14:20 81 15 123/63 10/14/20 14:10 80 11 L 125/62 10/14/20 14:00 80 17 149/71 10/14/20 13:50 75 17 143/69 10/14/20 13:30 78 16 10/14/20 13:15 81 16 120/61 10/14/20 13:00 81 16 102/56 10/14/20 12:45 81 16 150/53 10/14/20 12:31 84 16 114/42 10/14/20 12:15 85 16 128/52 10/14/20 12:00 82 16 127/51 10/14/20 11:50 97 F L 94 17 10/14/20 09:11 82 17 10/14/20 08:10 97.0 F L 83 17 BP Pulse Ox 10/14/20 14:40 100 10/14/20 14:30 100 10/14/20 14:20 100 10/14/20 14:10 100 10/14/20 14:00 100 10/14/20 13:50 100 10/14/20 13:30 130/62 97 10/14/20 13:15 129/62 97 10/14/20 13:00 90/54 97 10/14/20 12:45 132/61 100 10/14/20 12:31 100/57 100 10/14/20 12:15 122/59 100 10/14/20 12:00 130/71 100 10/14/20 11:50 100/65 100 10/14/20 09:11 102/60 100 10/14/20 08:10 110/65 100 Intake and Output 10/14/20 10/14/20 10/14/20 06:59 14:59 22:59 Intake Total 1012 Output Total 550 Balance 462 Intake: IV 1012 Lactated Ringers 1,000 ml 60 @ 20 mls/hr IV .Q24H JACKI Rx#:[id number] Output: Urine 525 Estimated Blood Loss 25 Other: Weight 60.328 kg ABP, PAP, CO, CI - Last 8 Hours Arterial Blood Pressure 116/44 Arterial Blood Pressure 144/50 Arterial Blood Pressure 128/47 Arterial Blood Pressure 138/46 Arterial Blood Pressure 153/50 GENERAL EXAM: Alert, active, very pleasant, 59-year-old white male, on 2 L of oxygen, resting comfortably in bed comfortable in no apparent distress. HEAD: Normocephalic/atraumatic. EYES: Normal reaction of pupils, equal size. Conjunctiva pink, sclera white. NOSE: Clear with pink turbinates. THROAT: No erythema or exudates. NECK: No masses, no JVD, no thyroid enlargement, no adenopathy. Right neck incision is covered with a surgical dressing, clean dry and intact, trachea is midline, no hematoma CHEST: No chest wall deformity. Symmetrical expansion. LUNGS: Equal air entry with no crackles, wheeze, rhonchi or dullness. CVS: Regular rate and rhythm, normal S1 and S2, no gallops, no murmurs, no rubs ABDOMEN: Soft, nontender. No hepatosplenomegaly, normal bowel sounds, no guarding or rigidity. EXTREMITIES: No clubbing, no edema, no cyanosis, 2+ pulses and upper and lower extremities. MUSCULOSKELETAL: Muscle strength and tone normal. SPINE: No scoliosis or deformity SKIN: No rashes CENTRAL NERVOUS SYSTEM: Alert and oriented -3. No focal deficits, tone is normal in all 4 extremities. PSYCHIATRIC: Alert and oriented -3. Appropriate affect. Intact judgment and insight. Results - Laboratory Findings CBC and BMP: 10/14/20 14:26 10/14/20 08:15 Abnormal lab findings: Abnormal Labs 10/14/20 10/14/20 10/14/20 08:20 10:26 10:54 RBC Hgb Hct RDW Neutrophils # Lymphocytes # POC Glucose (mg/dL) 242 H 192 H 185 H 10/14/20 10/14/20 13:41 14:26 RBC 3.15 L Hgb 9.4 L Hct 28.6 L RDW 17.9 H Neutrophils # 8.5 H Lymphocytes # 0.6 L POC Glucose (mg/dL) 105 H Assessment and Plan Plan: Assessment: #1. Severe carotid artery stenosis of greater than 95% status post right carotid endarterectomy with patch angioplasty, postoperative day #0 #2. Recent history of non-ST elevated myocardial infarction in August 2020 #3. Coronary artery disease status post off-pump three-vessel coronary bypass grafting in August 20, 2020 #4. Diabetes mellitus type 1 #5. Hypertension #6. Chronic kidney disease stage III-IV at baseline #7. Anemia of chronic kidney disease #8. Former smoker #9. History of paroxysmal atrial fibrillation after coronary artery bypass grafting, currently in sinus mechanism, he has not required a long-term anticoagulation plan: Patient is calm and comfortable, small amount of Radhames-Synephrine, continue to wean vasopressors, continue close hemodynamic and neurologic monitoring in the intensive care unit, post- operative blood work has been reviewed, follow-up blood work in the morning, blood sugar monitoring. Incentive spirometer to the bedside, monitor JANNIE output. GI and DVT prophylaxis per vascular surgery. We'll continue to closely follow with vascular surgery I performed a history & physical examination of the patient and discussed their management with my nurse practitioner, Faina Dior. I reviewed the nurse practitioner's note and agree with the documented findings and plan of care. Lung sounds are positive for clear breath sounds throughout the lung mcdaniel. The findings and the impression was discussed with the patient. I attest to the documentation by the nurse practitioner. Time with Patient: Greater than 30 <Umesh Vora - Last Filed: 10/15/20 08:40> Physical Exam Vitals: Vital Signs Temp Pulse Pulse Pulse Resp BP BP 10/15/20 08:00 97.8 F 85 18 117/63 10/15/20 07:30 85 20 10/15/20 07:00 87 19 10/15/20 06:30 77 119/60 10/15/20 06:00 77 18 107/67 10/15/20 05:30 78 14 10/15/20 05:00 80 16 111/63 10/15/20 04:30 79 15 10/15/20 04:00 98.2 F 82 76 11 L 125/64 10/15/20 03:30 78 125/64 10/15/20 03:00 75 16 10/15/20 02:30 77 118/63 10/15/20 02:00 76 19 106/57 10/15/20 01:30 74 10/15/20 01:00 77 12 116/62 10/15/20 00:30 77 18 116/62 10/15/20 00:00 97.2 F L 77 14 127/66 10/14/20 23:31 78 13 10/14/20 23:30 76 15 10/14/20 23:00 74 13 124/63 10/14/20 22:30 77 14 124/63 10/14/20 22:00 81 17 138/71 10/14/20 21:30 80 17 10/14/20 21:06 10/14/20 21:00 77 16 133/77 10/14/20 20:30 74 19 133/77 10/14/20 20:00 97.6 F 77 78 16 129/63 10/14/20 19:30 77 15 10/14/20 19:00 79 16 10/14/20 18:30 77 16 10/14/20 18:00 83 16 10/14/20 17:30 76 20 10/14/20 17:00 90 19 10/14/20 16:20 96.8 F L 78 18 106/60 10/14/20 16:00 83 78 16 10/14/20 15:30 80 15 159/84 10/14/20 15:15 77 13 10/14/20 15:00 79 12 10/14/20 14:45 97.0 F L 79 11 L 115/64 10/14/20 14:40 86 10 L 133/65 10/14/20 14:30 79 11 L 123/63 10/14/20 14:20 81 15 123/63 10/14/20 14:10 80 11 L 125/62 10/14/20 14:00 80 17 149/71 10/14/20 13:50 75 17 143/69 10/14/20 13:30 78 16 10/14/20 13:15 81 16 120/61 10/14/20 13:00 81 16 102/56 10/14/20 12:45 81 16 150/53 10/14/20 12:31 84 16 114/42 10/14/20 12:15 85 16 128/52 10/14/20 12:00 82 16 127/51 10/14/20 11:50 97 F L 94 17 10/14/20 09:11 82 17 BP Pulse Ox 10/15/20 08:00 99 10/15/20 07:30 97 10/15/20 07:00 99 10/15/20 06:30 98 03/03/21 06:00 97 10/15/20 05:30 97 10/15/20 05:00 97 10/15/20 04:30 99 10/15/20 04:00 97 10/15/20 03:30 98 10/15/20 03:00 97 10/15/20 02:30 98 10/15/20 02:00 94 L 10/15/20 01:30 97 10/15/20 01:00 98 10/15/20 00:30 96 10/15/20 00:00 96 10/14/20 23:31 10/14/20 23:30 98 10/14/20 23:00 100 10/14/20 22:30 98 10/14/20 22:00 98 10/14/20 21:30 100 10/14/20 21:06 99 10/14/20 21:00 98 10/14/20 20:30 99 10/14/20 20:00 100 10/14/20 19:30 99 10/14/20 19:00 100 10/14/20 18:30 100 10/14/20 18:00 100 10/14/20 17:30 100 10/14/20 17:00 100 10/14/20 16:20 100 10/14/20 16:00 100 10/14/20 15:30 100 10/14/20 15:15 100 10/14/20 15:00 100 10/14/20 14:45 100 10/14/20 14:40 100 10/14/20 14:30 100 10/14/20 14:20 100 10/14/20 14:10 100 10/14/20 14:00 100 10/14/20 13:50 100 10/14/20 13:30 130/62 97 10/14/20 13:15 129/62 97 10/14/20 13:00 90/54 97 10/14/20 12:45 132/61 100 10/14/20 12:31 100/57 100 10/14/20 12:15 122/59 100 10/14/20 12:00 130/71 100 10/14/20 11:50 100/65 100 10/14/20 09:11 102/60 100 Intake and Output 10/14/20 10/15/20 10/15/20 22:59 06:59 14:59 Intake Total 509.957 545.738 120 Output Total 560 875 275 Balance -50.043 -329.262 -155 Intake: IV 480 480 120 Lactated Ringers 1,000 ml 480 480 60 @ 20 mls/hr IV .Q24H JACKI Rx#:[id number] Lactated Ringers 1,000 ml 60 @ 60 mls/hr IV .[id number] JACKI Rx#:[id number] Intake, IV Titration 29.957 65.738 Amount Phenylephrine 40 mg In 29.957 Sodium Chloride 0.9% 250 ml @ 1 MCG/KG/MIN 22.985 mls/hr IV .Q11H4M ONE Rx# :[id number] Phenylephrine 40 mg In 65.738 Sodium Chloride 0.9% 250 ml @ 1 MCG/KG/MIN 22.985 mls/hr IV .Q11H4M JACKI Rx# :[id number] Output: Drainage 10 0 Right Neck 10 0 Urine 550 875 275 Other: Voiding Method Indwelling Catheter Indwelling Catheter Weight 65.8 kg ABP, PAP, CO, CI - Last 8 Hours Arterial Blood Pressure 123/63 Arterial Blood Pressure 114/54 Arterial Blood Pressure 118/50 Arterial Blood Pressure 117/51 Arterial Blood Pressure 113/50 Arterial Blood Pressure 111/55 Arterial Blood Pressure 109/47 Arterial Blood Pressure 107/47 Arterial Blood Pressure 114/50 Arterial Blood Pressure 120/51 Arterial Blood Pressure 104/47 Arterial Blood Pressure 124/54 Arterial Blood Pressure 105/48 Arterial Blood Pressure 96/41 Results - Laboratory Findings CBC and BMP: 10/15/20 04:50 10/15/20 04:50 Abnormal lab findings: Abnormal Labs 10/14/20 10/14/20 10/14/20 08:20 10:26 10:54 RBC Hgb Hct RDW Neutrophils # Lymphocytes # Sodium Chloride Carbon Dioxide BUN Creatinine POC Glucose (mg/dL) 242 H 192 H 185 H Hemoglobin A1c 10/14/20 10/14/20 10/14/20 13:41 14:26 14:26 RBC 3.15 L Hgb 9.4 L Hct 28.6 L RDW 17.9 H Neutrophils # 8.5 H Lymphocytes # 0.6 L Sodium Chloride Carbon Dioxide BUN Creatinine POC Glucose (mg/dL) 105 H Hemoglobin A1c 7.1 H 10/15/20 10/15/20 04:50 04:50 RBC 2.58 L Hgb 7.9 L D Hct 23.3 L RDW 17.9 H Neutrophils # Lymphocytes # Sodium 136 L Chloride 109 H Carbon Dioxide 21 L BUN 69 H Creatinine 3.00 H POC Glucose (mg/dL) Hemoglobin A1c Assessment and Plan Plan: The patient is doing well postop. The patient was started on low-dose pressors for hemodynamic support and this will be gradually weaned off to keep a mean arterial pressure above 65. Outpatient medication resumed. He is on insulin febrile for blood sugar control. JANNIE drain is in place. Output is being monitored. No hematoma formation. No focal neurological deficit. Renal function is chronically impaired and the patient has stage III/4 chronic kidney disease. We'll continue to follow.
[2020-10-14] MEDS: HEPARIN SODIUM,PORCINE 5,000 UNIT/ML 1 ML VIAL SQ SCH ×2 (16:58→23:37)
[2020-10-14] MEDS: LACTATED RINGERS 1,000 ML IV SCH (17:03)
[2020-10-14] MEDS: HYDROcodone/APAP 5-325MG 1 EACH TAB PO PRN (17:17)
[2020-10-14] MEDS: INSULIN ASPART (NovoLOG) 100 UNIT/ML VIAL SQ SCH ×2 (17:20→20:36)
[2020-10-14] MEDS: PHENYLEPHRINE 40 MG in SODIUM CHLORIDE 0.9% 250 ML IV SCH (19:30)
[2020-10-15] MEDS: MORPHINE SULFATE 2 MG/ML SYRINGE IVP PRN (04:55)
[2020-10-15 05:02] LABS: Anisocytosis Slight; Basophils % (A) 1 %; Eosinophils # (A) 0.2 k/uL (0-0.7); Eosinophils % (A) 4 %; HCT 23.3 % (39.0-53.0); Lymphocytes # (A) 1.1 k/uL (1.0-4.8); Lymphocytes % (A) 18 %; MCH 30.5 pg (25.0-35.0); MCHC 33.8 g/dL (31.0-37.0); MCV 90.3 fL (80.0-100.0); Mean Platelet Volume 9.1; Monocytes # (A) 0.4 k/uL (0-1.0); Monocytes % (A) 6 %; Neutrophils # (A) 4.2 k/uL (1.3-7.7); Neutrophils % (A) 71 %; Platelet Count 221 k/uL (150-450); RBC 2.58 m/uL (4.30-5.90); RDW 17.9 % (11.5-15.5)
[2020-10-15 05:10] LABS: HGB 7.9 gm/dL (13.0-17.5)
[2020-10-15 05:29] LABS: Calcium 8.5 mg/dL (8.4-10.2); Potassium 4.5 mmol/L (3.5-5.1)
[2020-10-15] MEDS: INSULIN ASPART (NovoLOG) 100 UNIT/ML VIAL SQ SCH (07:28)
[2020-10-15] MEDS: HYDROcodone/APAP 5-325MG 1 EACH TAB PO PRN (07:32)
[2020-10-15 07:44] LABS: Hemoglobin A1C 7.1 % (4.0-6.0)
[2020-10-15] MEDS ORDERED: IPRATROPIUM-ALBUTEROL 3 ML NEB INHALATION PRN (07:50)
[2020-10-15] MEDS: PHENYLEPHRINE 40 MG in SODIUM CHLORIDE 0.9% 250 ML IV SCH (08:09)
--- NOTE | 2020-10-15 08:14 | P.PN ---
<OviFaina richards M - Last Filed: 10/15/20 08:14> Subjective Progress Note Date: 10/15/20 Principal diagnosis: Right artery stenosis with subtotal occlusion 59-year-old white male patient of Dr. Roach, who presented today on 10/14/2020 for elective right carotid endarterectomy with patch angioplasty for right coronary artery stenosis of greater than 95%. Patient has a recent history of acute non-ST elevated myocardial infarction and underwent three-vessel coronary artery bypass grafting 6 weeks ago, and at the time of preop evaluation he had a carotid Doppler that demonstrated 95% stenosis of the right internal carotid artery. Other medical history includes type 1 diabetes mellitus, chronic kidney disease stage III, hypertension, anemia of chronic kidney disease, peripheral vessel occlusive disease, former smoker. Of note patient did have new onset atrial fibrillation after his cardiac surgery, and went back into sinus rhythm, and did not require any long-term anticoagulation. Patient was discharged home in stable condition on 08/25/2020. Today patient seen in follow-up in the intensive care unit following his surgery, he is doing well, he is awake and alert, he is currently on Radhames-Synephrine and 0.5 mics per kilo per minute, Lactated Ringers is at 60 ML per hour. Right neck incisions clean dry and intact, trachea is midline, there is no hematoma present, patient is breathing comfortably. Stop her blood work has been reviewed showing hemoglobin of 9.4, with white cell count of 9.6, platelet count is 278, potassium was 5.0. On the 10/15/2020 patient seen in follow-up in the intensive care unit. Today is postoperative day #1, status post right carotid endarterectomy with patch angioplasty. Patient is doing well, Radhames-Synephrine was weaned off at 3:00 in the morning, his maintenance IV fluids of lactated Ringer's at a rate of 60 ML per hour, patient is on room air, with a pulse ox of 99%. Patient is in sinus mechanism, no complaints of shortness of breath,, breathing comfortably, his only complaint today is some tenderness at the right neck incision. Right neck incision is clean dry and intact, covered with a surgical dressing, no hematoma, incision is soft, trachea is midline. Neurologically patient is intact. No acute events overnight, today's labs have been reviewed showing white blood cell count of 6.0, hemoglobin of 7.9, sodium is 136, potassium is 4.5, chloride is 109, CO2 is 21 BUN is 69 and creatinine is 3. Some fine rales at the bases, diminished breath sounds overall, with minimal wheezing. he has a history of 45 years of smoking of up to 2 packs a day, on any maintenance inhalers on a regular basis. Ramirez catheter is in place, patient is producing urine in the order of 75-125 ML per hour. Objective - Vital Signs Vital signs: Vital Signs Temp 98.2 F 10/15/20 04:00 Pulse 87 10/15/20 07:00 Resp 19 10/15/20 07:00 BP 119/60 10/15/20 06:30 Pulse Ox 99 10/15/20 07:00 Intake & Output 10/14/20 10/15/20 10/15/20 18:59 06:59 18:59 Intake Total 1281.957 785.738 60 Output Total 885 1100 100 Balance 396.957 -314.262 -40 Weight 60.328 kg 65.8 kg Intake: IV 1252 720 60 Lactated Ringers 1,000 ml 300 720 60 @ 20 mls/hr IV .Q24H [facility] Rx#:[id number] Intake, IV Titration 29.957 65.738 Amount Phenylephrine 40 mg In 29.957 Sodium Chloride 0.9% 250 ml @ 1 MCG/KG/MIN 22.985 mls/hr IV .Q11H4M [facility] Rx# :[id number] Phenylephrine 40 mg In 65.738 Sodium Chloride 0.9% 250 ml @ 1 MCG/KG/MIN 22.985 mls/hr IV .Q11H4M [facility] Rx# :[id number] Output: Drainage 10 0 Right Neck 10 0 Urine 850 1100 100 Estimated Blood Loss 25 Other: Voiding Method Indwelling Catheter Indwelling Catheter ABP, PAP, CO, CI - Last Documented Arterial Blood Pressure 114/54 - Exam GENERAL EXAM: Alert, active, very pleasant, 59-year-old white male, on Parul with a pulse ox of 99%, resting comfortably in bed comfortable in no apparent distress. HEAD: Normocephalic/atraumatic. EYES: Normal reaction of pupils, equal size. Conjunctiva pink, sclera white. NOSE: Clear with pink turbinates. THROAT: No erythema or exudates. NECK: No masses, no JVD, no thyroid enlargement, no adenopathy. Right neck incision is covered with a surgical dressing, clean dry and intact, trachea is midline, no hematoma. Right neck JANNIE drain is in place with minimal sanguinous output, JANNIE drain is compressed and draining CHEST: No chest wall deformity. Symmetrical expansion. LUNGS: Diminished breath sounds with fine rales at the bases, and minimal wheezing CVS: Regular rate and rhythm, normal S1 and S2, no gallops, no murmurs, no rubs ABDOMEN: Soft, nontender. No hepatosplenomegaly, normal bowel sounds, no guarding or rigidity. EXTREMITIES: No clubbing, no edema, no cyanosis, 2+ pulses and upper and lower extremities. MUSCULOSKELETAL: Muscle strength and tone normal. SPINE: No scoliosis or deformity SKIN: No rashes CENTRAL NERVOUS SYSTEM: Alert and oriented -3. No focal deficits, tone is normal in all 4 extremities. PSYCHIATRIC: Alert and oriented -3. Appropriate affect. Intact judgment and insight - Labs CBC & Chem 7: 10/15/20 04:50 10/15/20 04:50 Labs: Abnormal Lab Results - Last 24 Hours (Table) 10/14/20 10/14/20 10/14/20 Range/Units 08:20 10:26 10:54 RBC (4.30-5.90) m/uL Hgb (13.0-17.5) gm/dL Hct (39.0-53.0) % RDW (11.5-15.5) % Neutrophils # (1.3-7.7) k/uL Lymphocytes # (1.0-4.8) k/uL Sodium (137-145) mmol/L Chloride (98-107) mmol/L Carbon Dioxide (22-30) mmol/L BUN (9-20) mg/dL Creatinine (0.66-1.25) mg/dL POC Glucose (mg/dL) 242 H 192 H 185 H (75-99) mg/dL Hemoglobin A1c (4.0-6.0) % 10/14/20 10/14/20 10/14/20 Range/Units 13:41 14:26 14:26 RBC 3.15 L (4.30-5.90) m/uL Hgb 9.4 L (13.0-17.5) gm/dL Hct 28.6 L (39.0-53.0) % RDW 17.9 H (11.5-15.5) % Neutrophils # 8.5 H (1.3-7.7) k/uL Lymphocytes # 0.6 L (1.0-4.8) k/uL Sodium (137-145) mmol/L Chloride (98-107) mmol/L Carbon Dioxide (22-30) mmol/L BUN (9-20) mg/dL Creatinine (0.66-1.25) mg/dL POC Glucose (mg/dL) 105 H (75-99) mg/dL Hemoglobin A1c 7.1 H (4.0-6.0) % 10/15/20 10/15/20 Range/Units 04:50 04:50 RBC 2.58 L (4.30-5.90) m/uL Hgb 7.9 L D (13.0-17.5) gm/dL Hct 23.3 L (39.0-53.0) % RDW 17.9 H (11.5-15.5) % Neutrophils # (1.3-7.7) k/uL Lymphocytes # (1.0-4.8) k/uL Sodium 136 L (137-145) mmol/L Chloride 109 H (98-107) mmol/L Carbon Dioxide 21 L (22-30) mmol/L BUN 69 H (9-20) mg/dL Creatinine 3.00 H (0.66-1.25) mg/dL POC Glucose (mg/dL) (75-99) mg/dL Hemoglobin A1c (4.0-6.0) % Assessment and Plan Plan: Assessment: #1. Severe carotid artery stenosis of greater than 95% status post right carotid endarterectomy with patch angioplasty, postoperative day #1 #2. Left carotid artery stenosis of 70%, and the plan is to proceed with left carotid endarterectomy in 6 weeks #3. Chronic anemia, possibly hemodilutional #4. Recent history of non-ST elevated myocardial infarction in August 2020 #5. Coronary artery disease status post off-pump three-vessel coronary bypass grafting in August 20, 2020 #6. Diabetes mellitus type 1 #7. Hypertension #8. Chronic kidney disease stage III-IV at baseline #9. Anemia of chronic kidney disease #10. 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 History of paroxysmal atrial fibrillation after coronary artery bypass grafting, currently in sinus mechanism, he has not required a long-term anticoagulation #12. COPD plan: Patient is doing well, no acute events overnight, Radhames-Synephrine has been weaned off, neurologically intact, today's labs have been noted, some mild wheezing on today's exam, we will add DuoNeb breathing treatments on an as-needed basis, continue encouraging deep breathing and coughing, hemodynamically stable, anticipate removal of Ramirez catheter, arterial line, activity as tolerated. Possible discharge home today or tomorrow if cleared by vascular surgery. I performed a history & physical examination of the patient and discussed their management with my nurse practitioner, Faina Dior. I reviewed the nurse practitioner's note and agree with the documented findings and plan of care. Lung sounds are positive for clear breath sounds throughout the lung mcdaniel. The findings and the impression was discussed with the patient. I attest to the documentation by the nurse practitioner. Time with Patient: Less than 30 <Umesh Vora - Last Filed: 10/15/20 08:39> Objective - Vital Signs Vital signs: Vital Signs Temp 97.8 F 10/15/20 08:00 Pulse 85 10/15/20 08:00 Resp 18 10/15/20 08:00 BP 117/63 10/15/20 08:00 Pulse Ox 99 10/15/20 08:00 Intake & Output 10/14/20 10/15/20 10/15/20 18:59 06:59 18:59 Intake Total 1281.957 785.738 120 Output Total 885 1100 275 Balance 396.957 -314.262 -155 Weight 60.328 kg 65.8 kg Intake: IV 1252 720 120 Lactated Ringers 1,000 ml 300 720 60 @ 20 mls/hr IV .Q24H [facility] Rx#:[id number] Lactated Ringers 1,000 ml 60 @ 60 mls/hr IV .[id number] [facility] Rx#:[id number] Intake, IV Titration 29.957 65.738 Amount Phenylephrine 40 mg In 29.957 Sodium Chloride 0.9% 250 ml @ 1 MCG/KG/MIN 22.985 mls/hr IV .Q11H4M [facility] Rx# :[id number] Phenylephrine 40 mg In 65.738 Sodium Chloride 0.9% 250 ml @ 1 MCG/KG/MIN 22.985 mls/hr IV .Q11H4M [facility] Rx# :[id number] Output: Drainage 10 0 Right Neck 10 0 Urine 850 1100 275 Estimated Blood Loss 25 Other: Voiding Method Indwelling Catheter Indwelling Catheter ABP, PAP, CO, CI - Last Documented Arterial Blood Pressure 123/63 - Labs CBC & Chem 7: 10/15/20 04:50 10/15/20 04:50 Labs: Abnormal Lab Results - Last 24 Hours (Table) 10/14/20 10/14/20 10/14/20 Range/Units 10:26 10:54 13:41 RBC (4.30-5.90) m/uL Hgb (13.0-17.5) gm/dL Hct (39.0-53.0) % RDW (11.5-15.5) % Neutrophils # (1.3-7.7) k/uL Lymphocytes # (1.0-4.8) k/uL Sodium (137-145) mmol/L Chloride (98-107) mmol/L Carbon Dioxide (22-30) mmol/L BUN (9-20) mg/dL Creatinine (0.66-1.25) mg/dL POC Glucose (mg/dL) 192 H 185 H 105 H (75-99) mg/dL Hemoglobin A1c (4.0-6.0) % 10/14/20 10/14/20 10/15/20 Range/Units 14:26 14:26 04:50 RBC 3.15 L 2.58 L (4.30-5.90) m/uL Hgb 9.4 L 7.9 L D (13.0-17.5) gm/dL Hct 28.6 L 23.3 L (39.0-53.0) % RDW 17.9 H 17.9 H (11.5-15.5) % Neutrophils # 8.5 H (1.3-7.7) k/uL Lymphocytes # 0.6 L (1.0-4.8) k/uL Sodium (137-145) mmol/L Chloride (98-107) mmol/L Carbon Dioxide (22-30) mmol/L BUN (9-20) mg/dL Creatinine (0.66-1.25) mg/dL POC Glucose (mg/dL) (75-99) mg/dL Hemoglobin A1c 7.1 H (4.0-6.0) % 10/15/20 Range/Units 04:50 RBC (4.30-5.90) m/uL Hgb (13.0-17.5) gm/dL Hct (39.0-53.0) % RDW (11.5-15.5) % Neutrophils # (1.3-7.7) k/uL Lymphocytes # (1.0-4.8) k/uL Sodium 136 L (137-145) mmol/L Chloride 109 H (98-107) mmol/L Carbon Dioxide 21 L (22-30) mmol/L BUN 69 H (9-20) mg/dL Creatinine 3.00 H (0.66-1.25) mg/dL POC Glucose (mg/dL) (75-99) mg/dL Hemoglobin A1c (4.0-6.0) % Assessment and Plan Plan: . The patient was seen in conjunction with the nurse practitioner. No active issues for now. JANNIE drain is in place and output is minimal and his bloody. Surgical wound site is dry clean and intact. No hematoma formation. Hemodynamically stable on no pressors. Renal function stable. We'll continue to follow. Outpatient indication of been resumed including the insulin pump. Blood sugars under adequate control for now. Restart Crestor on outpatient basis.
[2020-10-15 08:19] VITALS: TEMP 97.8
[2020-10-15] MEDS: LACTATED RINGERS 1,000 ML IV SCH (08:21)
[2020-10-15] MEDS: HEPARIN SODIUM,PORCINE 5,000 UNIT/ML 1 ML VIAL SQ SCH (08:25)
[2020-10-15] MEDS ORDERED: ASPIRIN 81 MG PO SCH (09:00)
[2020-10-15 11:05] VITALS: BP 126/62; PULSE 78; RESP 12
--- NOTE | 2020-10-15 11:11 | P.DS ---
Providers Date of admission: 10/14/20 07:42 Expected date of discharge: 10/15/20 Attending physician: Rene Silva DO Consults: 10/14/20 12:03 Consult Physician Routine Consulting Provider: Mayo Bedoya Consult Reason/Comments: medical management Do you want consulting provider notified?: Yes 10/14/20 14:22 Consult Physician Routine Consulting Provider: Umesh Vora Consult Reason/Comments: icu management Do you want consulting provider notified?: Yes Primary care physician: Cheryl Roach MD Hospital Course: This a 59-year-old male patient who presented yesterday for an elective right carotid endarterectomy with patch angioplasty for right carotid artery stenosis greater than 95%. The patient also had a recent history of an acute STEMI and underwent a three-vessel coronary artery bypass graft approximately 6 weeks ago. At that time the patient had carotid Doppler that demonstrated 95% stenosis of the right internal carotid artery and was scheduled for outpatient right carotid endarterectomy. Today he is seen and examined in the ICU. He had no acute changes through the night. He has scant to small amount of serosanguineous fluid from his JANNIE drain. He denies any focal deficits. His Ramirez catheter was discontinued this morning. However patient had not voided yet. Arterial line was discontinued. Assessment: Assessment: 1. Postop day #1 right carotid endarterectomy with patch angioplasty 2. Severe right internal carotid artery stenosis greater than 95% 3. Severe left internal carotid artery stenosis greater than 95% 4. Coronary artery disease status post three-vessel coronary bypass grafting 5. Hypertension 6. Diabetes mellitus 7. Chronic kidney disease 8. Anemia of chronic disease Plan: Patient may be discharged home after urinating on his own and ambulating. Patient will be discharged home on low-dose aspirin, Plavix, and statin. Was discussed with patient may shower tomorrow, follow-up with Dr. Silva 1-2 weeks. JANNIE drain removed. The impression and plan of care has been dictated as directed. Dr. Ramirez I performed a history and examination of this patient, discussed the same with the dictator. I agree with the dictator's note ,documented as a scribe. Any additional findings or plans will be noted. Procedures: Right internal carotid artery stenosis greater than 95% Patient Condition at Discharge: Good Plan - Discharge Summary Discharge Rx Participant: Yes New Discharge Prescriptions: New Aspirin 162 mg PO DAILY chew Clopidogrel [Plavix] 75 mg PO DAILY 30 Days #30 tablet Continue Insulin Aspart (For Pump) [NovoLOG (For Pump)] 0.01 unit SQ-PUMP CONTINUOUS Vitamin D3 (Unknown Strength) 1 tab PO DAILY Sodium Bicarbonate Tab 650 mg PO TID #90 tab Lasix 1 tab PO DAILY Ferrous Sulfate [Iron (65 MG Elemental)] 325 mg PO DAILY Rosuvastatin [Crestor] 10 mg PO HS Discontinued Aspirin 325 mg PO DAILY #30 tab Discharge Medication List Insulin Aspart (For Pump) [NovoLOG (For Pump)] 0.01 unit SQ-PUMP CONTINUOUS 01/31/20 [History] Vitamin D3 (Unknown Strength) 1 tab PO DAILY 08/13/20 [History] Sodium Bicarbonate Tab 650 mg PO TID #90 tab 08/25/20 [Rx] Ferrous Sulfate [Iron (65 MG Elemental)] 325 mg PO DAILY 10/10/20 [History] Lasix 1 tab PO DAILY 10/10/20 [History] Rosuvastatin [Crestor] 10 mg PO HS 10/14/20 [History] Aspirin 162 mg PO DAILY chew 10/15/20 [Rx] Clopidogrel [Plavix] 75 mg PO DAILY 30 Days #30 tablet 10/15/20 [Rx] Follow up Appointment(s)/Referral(s): Cheryl Roach MD [Primary Care Provider] - 2 Weeks Rene Silva DO [STAFF PHYSICIAN] - 1 Week (1-2 weeks) Activity/Diet/Wound Care/Special Instructions: No showering for 24 hours, watch incision site for redness or drainage. Call if temperature greater than 100.4. No strenuous exercise or lifting until follow- up appointment with Dr. Silva Discharge Disposition: HOME SELF-CARE
--- NOTE | 2020-10-15 13:45 | P.CONS ---
History of Present Illness - Reason for Consult Consult date: 10/15/20 Medical management - History of Present Illness HISTORY OF PRESENT ILLNESS This is a 59-year-old male patient of Dr. Roach with past medical history of diabetes on insulin pump, hypertension, hyperlipidemia, chronic neuropathy, chronic kidney disease stage IIIB/4 secondary to diabetic kidney disease, COPD, coronary artery disease post PCI and stent placement back in 2004 status post off-pump CABG 3 with REID to LAD, saphenous vein grafts to first obtuse marginal and right coronary arteries on August 20, 2020. At the time of his CABG, patient was found to have right internal carotid artery stenosis of 99% and 70% on the left. Patient was brought into the hospital yesterday and underwent REVIEW OF SYSTEMS Constitutional: No fever, no chills, no night sweats. No weight change. No weakness, fatigue or lethargy. No daytime sleepiness. EENT: No headache. No blurred vision or double vision, no loss of vision. No loss of Hearing, no ringing in the ears, no dizziness. No nasal drainage or congestion. No epistaxis. No sore throat. No discomfort from surgery. Lungs: No shortness of breath, cough, no sputum production. No wheezing. Cardiovascular: No chest pain, no lower extremity edema. No palpitations. No paroxysmal nocturnal dyspnea. No orthopnea. No lightheadedness or dizziness. No syncopal episodes. Abdominal: No abdominal pain. No nausea, vomiting. No diarrhea. No constipation. No bloody or tarry stools.. No loss of appetite. Genitourinary: No dysuria, increased frequency, urgency. No urinary retention. Musculoskeletal: No myalgias. No muscle weakness, no gait dysfunction, no frequent falls. No back pain. No neck pain. Integumentary: No wounds, no lesions. No rash or pruritus. No unusual bruising. No change in hair or nails. Neurologic: No aphasia. No facial droop. No change in mentation. No head injury. No headache. No paralysis. No paresthesia. Psychiatric: No depression. No anxiety. No mood swings. Endocrine: No abnormal blood sugars. No weight change. No excessive sweating or thirst. No cold intolerance. SOCIAL HISTORY Patient is a smoker one to 2 packs per day for at least 35 years and quit in August 2020, drinks alcohol socially. No illicit drug use. FAMILY HISTORY Father had history of diabetes and vascular heart disease from a brain aneurysm. Mother had vascular disease and from brain aneurysm as well. Patient has siblings with diabetes. PHYSICAL EXAMINATION Gen: This is a 59-year-old male. Patient is resting in the ICU bed and appears to be comfortable and in no acute distress. HEENT: Head is atraumatic, normocephalic. Pupils equal, round. Sclerae is anicteric. NECK: Supple. No JVD. No lymphadenopathy. No thyromegaly. LUNGS: Clear to auscultation. No wheezes or rhonchi. No intercostal retractions. HEART: Regular rate and rhythm. No murmur. ABDOMEN: Soft. Bowel sounds are present. No masses. No tenderness. EXTREMITIES: No pedal edema. No calf tenderness. NEUROLOGICAL: Patient is awake, alert and oriented x3. Cranial nerves 2 through 12 are grossly intact. ASSESSMENT AND PLAN 1. Carotid stenosis status post right carotid endarterectomy and patch angioplasty, postop day #1. Patient has had no postop comp occasions. He is scheduled for discharge home today. Continue Plavix 75 mg daily, aspirin 162 mg daily 2. Left carotid artery stenosis 70% with plan for left carotid endarterectomy in 6 weeks. 3. Coronary artery disease status post off-pump three-vessel coronary artery bypass grafting in August 2020, stable chest pain. 4. Diabetes mellitus type 1 on insulin pump. 5. Hypertension. Continue Lasix 6. Chronic kidney disease stage IIIB/4, stable. Avoid nephrotoxic agents. 7. Anemia of chronic kidney disease, stable. Continue ferrous sulfate 325 mg daily 8. History of tobacco use and dependence and quit in August. 9. COPD without exacerbation. 10. Diabetic neuropathy. 11. Hyperlipidemia. Continue Crestor 10 mg at bedtime. DISCHARGE PLAN Home. Impression and plan of care have been directed as dictated by the signing physician. Cecille Marcum nurse practitioner acting as scribe for signing physician. Past Medical History Past Medical History: Coronary Artery Disease (CAD), Diabetes Mellitus, Eye Disorder, Hyperlipidemia, Myocardial Infarction (SC), Renal Disease, Vascular Disorder Additional Past Medical History / Comment(s): IDDM type I with insulin pump, CKD stage IV, polyneuropathy, dupuytren's bilateral hands, chronic R foot ulcer, chronic bilateral foot pain, chronic low back pain/fracture, R eye cataract, left foot 2cnd and 3rd toe amputated Last Myocardial Infarction Date:: 08/13/20 History of Any Multi-Drug Resistant Organisms: MRSA Year Discovered:: 2014 MDRO Source:: right foot Past Surgical History: Coronary Bypass/CABG, Heart Catheterization With Stent, Orthopedic Surgery Additional Past Surgical History / Comment(s): CABG X3 on 08/20/20, L hand fracture with pins, left 2nd and third toe amputation, colonoscopy, L cataract removal/lens implants Past Anesthesia/Blood Transfusion Reactions: No Reported Reaction Date of Last Stent Placement:: 2014 Smoking Status: Former smoker - Past Family History Father Family Medical History: Diabetes Mellitus, Vascular Disorder Additional Family Medical History / Comment(s): Father of brain aneurysm. He had type I diabetes and it ran strongly on father's side of family Mother Family Medical History: Vascular Disorder Additional Family Medical History / Comment(s): Mother from a brain aneurysm. Brother(s) Family Medical History: COPD, Coronary Artery Disease (CAD) Additional Family Medical History / Comment(s): Brother had CABG in his early 50s Daughter(s) Family Medical History: Renal Disease Additional Family Medical History / Comment(s): Daughter of kidney disease Medications and Allergies Home Medications Medication Instructions Recorded Confirmed Type Insulin Aspart (For Pump) [NovoLOG 0.01 unit SQ-PUMP CONTINUOUS 01/31/20 10/10/20 History (For Pump)] Vitamin D3 (Unknown Strength) 1 tab PO DAILY 08/13/20 10/10/20 History Sodium Bicarbonate Tab 650 mg PO TID #90 tab 08/25/20 10/10/20 Rx Ferrous Sulfate [Iron (65 MG 325 mg PO DAILY 10/10/20 10/10/20 History Elemental)] Lasix 1 tab PO DAILY 10/10/20 History Rosuvastatin [Crestor] 10 mg PO HS 10/14/20 10/14/20 History Aspirin 162 mg PO DAILY chew 10/15/20 Rx Clopidogrel [Plavix] 75 mg PO DAILY 30 Days #30 tablet 10/15/20 Rx Allergies Allergy/AdvReac Type Severity Reaction Status Date / Time No Known Allergies Allergy Verified 10/14/20 07:56 Physical Exam Vitals: Vital Signs Temp Pulse Pulse Resp BP BP BP 10/15/20 09:00 84 15 124/75 10/15/20 08:30 84 14 10/15/20 08:00 97.8 F 85 18 117/63 10/15/20 07:30 85 20 10/15/20 07:00 87 19 10/15/20 06:30 77 119/60 10/15/20 06:00 77 18 107/67 10/15/20 05:30 78 14 10/15/20 05:00 80 16 111/63 10/15/20 04:30 79 15 10/15/20 04:00 98.2 F 82 76 11 L 125/64 10/15/20 03:30 78 125/64 10/15/20 03:00 75 16 10/15/20 02:30 77 118/63 10/15/20 02:00 76 19 106/57 10/15/20 01:30 74 10/15/20 01:00 77 12 116/62 10/15/20 00:30 77 18 116/62 10/15/20 00:00 97.2 F L 77 14 127/66 10/14/20 23:31 78 13 10/14/20 23:30 76 15 10/14/20 23:00 74 13 124/63 10/14/20 22:30 77 14 124/63 10/14/20 22:00 81 17 138/71 10/14/20 21:30 80 17 10/14/20 21:06 10/14/20 21:00 77 16 133/77 10/14/20 20:30 74 19 133/77 10/14/20 20:00 97.6 F 77 78 16 129/63 10/14/20 19:30 77 15 10/14/20 19:00 79 16 10/14/20 18:30 77 16 10/14/20 18:00 83 16 10/14/20 17:30 76 20 10/14/20 17:00 90 19 10/14/20 16:20 96.8 F L 78 18 106/60 10/14/20 16:00 83 78 16 10/14/20 15:30 80 15 159/84 10/14/20 15:15 77 13 10/14/20 15:00 79 12 10/14/20 14:45 97.0 F L 79 11 L 115/64 10/14/20 14:40 86 10 L 133/65 10/14/20 14:30 79 11 L 123/63 10/14/20 14:20 81 15 123/63 10/14/20 14:10 80 11 L 125/62 10/14/20 14:00 80 17 149/71 10/14/20 13:50 75 17 143/69 10/14/20 13:30 78 16 130/62 10/14/20 13:15 81 16 120/61 129/62 10/14/20 13:00 81 16 102/56 90/54 10/14/20 12:45 81 16 150/53 132/61 10/14/20 12:31 84 16 114/42 100/57 10/14/20 12:15 85 16 128/52 122/59 10/14/20 12:00 82 16 127/51 130/71 10/14/20 11:50 97 F L 94 17 100/65 Pulse Ox 10/15/20 09:00 98 10/15/20 08:30 100 10/15/20 08:00 99 10/15/20 07:30 97 10/15/20 07:00 99 10/15/20 06:30 98 10/15/20 06:00 97 10/15/20 05:30 97 10/15/20 05:00 97 10/15/20 04:30 99 10/15/20 04:00 97 10/15/20 03:30 98 10/15/20 03:00 97 10/15/20 02:30 98 10/15/20 02:00 94 L 10/15/20 01:30 97 10/15/20 01:00 98 10/15/20 00:30 96 10/15/20 00:00 96 10/14/20 23:31 10/14/20 23:30 98 10/14/20 23:00 100 10/14/20 22:30 98 10/14/20 22:00 98 10/14/20 21:30 100 10/14/20 21:06 99 10/14/20 21:00 98 10/14/20 20:30 99 10/14/20 20:00 100 10/14/20 19:30 99 10/14/20 19:00 100 10/14/20 18:30 100 10/14/20 18:00 100 10/14/20 17:30 100 10/14/20 17:00 100 10/14/20 16:20 100 10/14/20 16:00 100 10/14/20 15:30 100 10/14/20 15:15 100 10/14/20 15:00 100 10/14/20 14:45 10/14/20 14:40 10/14/20 14:30 10/14/20 14:20 100 10/14/20 14:10 100 10/14/20 14:00 100 10/14/20 13:50 100 10/14/20 13:30 97 10/14/20 13:15 97 10/14/20 13:00 97 10/14/20 12:45 100 10/14/20 12:31 100 10/14/20 12:15 100 10/14/20 12:00 100 10/14/20 11:50 100 Intake and Output 10/14/20 10/15/20 10/15/20 22:59 06:59 14:59 Intake Total 509.957 545.738 180 Output Total 560 875 275 Balance -50.043 -329.262 -95 Intake: IV 480 480 180 Lactated Ringers 1,000 ml 480 480 60 @ 20 mls/hr IV .Q24H [facility] Rx#:[id number] Lactated Ringers 1,000 ml 120 @ 60 mls/hr IV .[id number] [facility] Rx#:[id number] Intake, IV Titration 29.957 65.738 Amount Phenylephrine 40 mg In 29.957 Sodium Chloride 0.9% 250 ml @ 1 MCG/KG/MIN 22.985 mls/hr IV .[id number] [facility] Rx# :[id number] Phenylephrine 40 mg In 65.738 Sodium Chloride 0.9% 250 ml @ 1 MCG/KG/MIN 22.985 mls/hr IV .Q11H4M [facility] Rx# :[id number] Output: Drainage 10 0 Right Neck 10 0 Urine 550 875 275 Other: Voiding Method Indwelling Catheter Indwelling Catheter # Voids 0 Weight 65.8 kg ABP, PAP, CO, CI - Last 8 Hours Arterial Blood Pressure 123/63 Arterial Blood Pressure 114/54 Arterial Blood Pressure 118/50 Arterial Blood Pressure 117/51 Arterial Blood Pressure 113/50 Arterial Blood Pressure 111/55 Arterial Blood Pressure 109/47 Arterial Blood Pressure 107/47 Arterial Blood Pressure 114/50 Arterial Blood Pressure 120/51 Arterial Blood Pressure 104/47 Arterial Blood Pressure 124/54 Results CBC & Chem 7: 10/15/20 04:50 10/15/20 04:50 Labs: Abnormal Lab Results - Last 24 Hours (Table) 10/14/20 10/14/20 10/14/20 Range/Units 10:26 10:54 13:41 RBC (4.30-5.90) m/uL Hgb (13.0-17.5) gm/dL Hct (39.0-53.0) % RDW (11.5-15.5) % Neutrophils # (1.3-7.7) k/uL Lymphocytes # (1.0-4.8) k/uL Sodium (137-145) mmol/L Chloride (98-107) mmol/L Carbon Dioxide (22-30) mmol/L BUN (9-20) mg/dL Creatinine (0.66-1.25) mg/dL POC Glucose (mg/dL) 192 H 185 H 105 H (75-99) mg/dL Hemoglobin A1c (4.0-6.0) % 10/14/20 10/14/20 10/15/20 Range/Units 14:26 14:26 04:50 RBC 3.15 L 2.58 L (4.30-5.90) m/uL Hgb 9.4 L 7.9 L D (13.0-17.5) gm/dL Hct 28.6 L 23.3 L (39.0-53.0) % RDW 17.9 H 17.9 H (11.5-15.5) % Neutrophils # 8.5 H (1.3-7.7) k/uL Lymphocytes # 0.6 L (1.0-4.8) k/uL Sodium (137-145) mmol/L Chloride (98-107) mmol/L Carbon Dioxide (22-30) mmol/L BUN (9-20) mg/dL Creatinine (0.66-1.25) mg/dL POC Glucose (mg/dL) (75-99) mg/dL Hemoglobin A1c 7.1 H (4.0-6.0) % 10/15/20 Range/Units 04:50 RBC (4.30-5.90) m/uL Hgb (13.0-17.5) gm/dL Hct (39.0-53.0) % RDW (11.5-15.5) % Neutrophils # (1.3-7.7) k/uL Lymphocytes # (1.0-4.8) k/uL Sodium 136 L (137-145) mmol/L Chloride 109 H (98-107) mmol/L Carbon Dioxide 21 L (22-30) mmol/L BUN 69 H (9-20) mg/dL Creatinine 3.00 H (0.66-1.25) mg/dL POC Glucose (mg/dL) (75-99) mg/dL Hemoglobin A1c (4.0-6.0) %
== END 2020-10-15 11:53 | disposition home or self-care (01) | DRG 38 ==
LOC: 2ORMAIN 07:42 → 2SICU 12:09
PROVIDERS: ADMIT Surgery; ATTEND Surgery
PROC: 03UK0KZ Supplement Right Internal Carotid Artery with Nonautologous Tissue Substitute, Open Approach (ICD-10-PCS; 2020-10-14)
PROC: 03CK0ZZ Extirpation of Matter from Right Internal Carotid Artery, Open Approach (ICD-10-PCS; principal; 2020-10-14 09:15)
DX: I65.23 Occlusion and stenosis of bilateral carotid arteries (principal); N18.4 Chronic kidney disease, stage 4 (severe); I13.0 Hypertensive heart and chronic kidney disease with heart failure and stage 1 through stage 4 chronic kidney disease, or unspecified chronic kidney disease; I50.22 Chronic systolic (congestive) heart failure; E10.42 Type 1 diabetes mellitus with diabetic polyneuropathy; D63.1 Anemia in chronic kidney disease; L97.519 Non-pressure chronic ulcer of other part of right foot with unspecified severity; E10.22 Type 1 diabetes mellitus with diabetic chronic kidney disease; Z89.422 Acquired absence of other left toe(s); I48.0 Paroxysmal atrial fibrillation; J44.9 Chronic obstructive pulmonary disease, unspecified; Z79.4 Long term (current) use of insulin; E78.5 Hyperlipidemia, unspecified; I25.10 Atherosclerotic heart disease of native coronary artery without angina pectoris; G89.29 Other chronic pain; H26.9 Unspecified cataract; I25.5 Ischemic cardiomyopathy; M54.5 Low back pain; I25.2 Old myocardial infarction; Z79.82 Long term (current) use of aspirin; Z79.899 Other long term (current) drug therapy; Z86.14 Personal history of Methicillin resistant Staphylococcus aureus infection; Z95.1 Presence of aortocoronary bypass graft; Z87.891 Personal history of nicotine dependence; Z96.1 Presence of intraocular lens; Z98.42 Cataract extraction status, left eye; Z95.5 Presence of coronary angioplasty implant and graft; Z87.81 Personal history of (healed) traumatic fracture; Z98.890 Other specified postprocedural states; Z96.41 Presence of insulin pump (external) (internal); Z83.3 Family history of diabetes mellitus; Z82.49 Family history of ischemic heart disease and other diseases of the circulatory system; Z82.5 Family history of asthma and other chronic lower respiratory diseases
CPT/HCPCS: 80048; 83036; 84132; 85025; 86850; 86900; 86901; 88304; 88311

== ENCOUNTER → 2020-10-14 | Outpatient (CLI) | payer MEDICARE ==
--- NOTE | 2020-10-14 17:13 | US ---
EXAMINATION TYPE: US carotid duplex RT DATE OF EXAM: 10/14/2020 COMPARISON: NONE CLINICAL HISTORY: I65.21 Right Carotid Stenosis. known stenosis bilaterally, pre op EXAM MEASUREMENTS: RIGHT: Peak Systolic Velocity (PSV) cm/sec ----- Right CCA: 116 ----- Right ICA: 423 ----- Right ECA: 135 ICA/CCA ratio: 3.6 RIGHT: End Diastole cm/sec ----- Right CCA: 20 ----- Right ICA: 222 ----- Right ECA: 19.7 LEFT: Peak Systolic Velocity (PSV) cm/sec ----- Left CCA: 86.7 ----- Left ICA: 429 ----- Left ECA: 223 ICA/CCA ratio: 4.9 LEFT: End Diastole cm/sec ----- Left CCA: 26.8 ----- Left ICA: 176 ----- Left ECA: 16.9 VERTEBRALS (direction of flow): Right Vertebral: Antegrade Left Vertebral: Antegrade Rhythm: Normal Extensive heterogeneous plaque seen bilaterally with significant stenosis proximal bilateral ICA's IMPRESSION: 1. Severe to critical bilateral internal carotid artery stenosis. Criteria for Assigning % of Stenosis / Diameter reduction (Estimation based on the indirect measurements of the internal carotid artery velocities (ICA PSV). 1. Normal (no stenosis)=ICA PSV < 125 cm/s: ratio < 2.0: ICA EDV<40 cm/s. 2. Less than 50% stenosis=ICA PSV < 125 cm/s: ratio < 2.0: ICA EDV<40 cm/s. 3. 50 to 69% stenosis=ICA PSV of 125 to 230 cm/s: ration 2.0 ? 4.0: ICA EDV 40-100 cm/s. 4. Greater than 70% stenosis to near occlusion= ICA PSV > 230 cm/s: ratio > 4.0: ICA EDV > 100 cm/s. 5. Near occlusion= ICA PSV velocities may be low or undetectable: variable ratio and ICA EDV. 6. Total occlusion=unable to detect flow.
== END ==
LOC: RADUSWWP 07:15
PROVIDERS: ATTEND Surgery
DX: I65.23 Occlusion and stenosis of bilateral carotid arteries (principal)
CPT/HCPCS: 93880

== ENCOUNTER → 2020-12-05 | Outpatient (CLI) | payer MEDICARE ==
[2020-12-05 23:19] LABS: HCT 30.1 % (39.6-50.0); MCH 30.9 pg (27.0-32.0); MCHC 33.2 g/dL (32.0-37.0); MCV 92.9 fL (80.0-97.0); Mean Platelet Volume 10.9 fL (9.5-12.2); Platelet Count 231 X 10*3/uL (140-440); RBC 3.24 X 10*6/uL (4.40-5.60); RDW 15.8 % (11.5-14.5)
== END | disposition home or self-care (01) ==
LOC: LABWHC1 15:30
PROVIDERS: ATTEND Surgery
DX: R69 Illness, unspecified (principal)
CPT/HCPCS: 36415; 85027

== ENCOUNTER 2022-04-18 20:24 | Inpatient (IN) | payer MEDICARE ==
[2022-04-18 20:59] LABS: Glucose,Whole Blood >600 mg/dL (70-110)
[2022-04-18] MEDS ORDERED: ONDANSETRON 4 MG/2 ML VIAL IVP STA (21:19)
[2022-04-18] MEDS ORDERED: SODIUM CHLORIDE 0.9% 2,000 ML IV STA (21:19)
[2022-04-18] MEDS ORDERED: ALBUTEROL NEB (CONC) 2.5 MG/0.5 ML INHALATION ONE (21:21)
[2022-04-18] MEDS ORDERED: INSULIN REGULAR 100 UNIT/ML VIAL (IV) IV ONE (21:21)
[2022-04-18] MEDS ORDERED: CALCIUM GLUCONATE IN NACL 1 GM in SALINE 1 100ML.BAG IVPB ONE (21:30)
[2022-04-18] MEDS ORDERED: SODIUM BICARB 8.4% 50 ML SYR (1 MEQ/ML) IV ONE (21:42)
[2022-04-18] MEDS ORDERED: Potassium Replacement Protocol 1 EACH MISC MISCELLANE PRN (21:46)
[2022-04-18] MEDS ORDERED: Magnesium Replacement Protocol 1 EACH MISC MISCELLANE PRN (21:46)
[2022-04-18 21:56] LABS: Glucose,Whole Blood >600 mg/dL (70-110)
[2022-04-18 22:24] LABS: Glucose,Whole Blood >600 mg/dL (70-110)
[2022-04-18 22:24] LABS: Anisocytosis Slight; Basophils % (A) 0 %; Eosinophils # (A) 0.1 k/uL (0-0.7); Eosinophils % (A) 1 %; HCT 28.6 % (39.0-53.0); HGB 7.6 gm/dL (13.0-17.5); Hypochromasia Marked; Lymphocytes # (A) 0.6 k/uL (1.0-4.8); Lymphocytes % (A) 4 %; MCH 30.6 pg (25.0-35.0); MCHC 26.6 g/dL (31.0-37.0); MCV 114.7 fL (80.0-100.0); Macrocytosis Marked; Mean Platelet Volume 8.8; Monocytes # (A) 0.4 k/uL (0-1.0); Monocytes % (A) 3 %; Neutrophils # (A) 11.4 k/uL (1.3-7.7); Neutrophils % (A) 91 %; Platelet Count 395 k/uL (150-450); RBC 2.49 m/uL (4.30-5.90); RDW 16.3 % (11.5-15.5); WBC 12.5 k/uL (3.8-10.6)
[2022-04-18 22:27] LABS: ABG Base Excess -23.9 mmol/L; ABG Oxygen Saturation 99.6 % (94-97); ABG PCO2 27 mmHg (35-45); ABG PO2 222 mmHg (83-108); ABG TCO2 8 mmol/L (19-24); Allen Test Performed? Yes
[2022-04-18 22:29] LABS: Partial Thromboplastin Time 23.4 sec (22.0-30.0); Prothrombin Time 10.5 sec (9.0-12.0)
[2022-04-18] MEDS ORDERED: DEXTROSE 5% IN WATER 1,000 ML with SODIUM BICARB (1 MEQ/ML) 150 ML IV SCH (22:30)
[2022-04-18 22:31] LABS: ABG HCO3 7 mmol/L (21-25); ABG Hematocrit 22 % (34.0-46.0); ABG PH 7.02 (7.35-7.45)
--- NOTE | 2022-04-18 22:34 | XR ---
EXAMINATION TYPE: XR chest 1V DATE OF EXAM: 04/18/2022 COMPARISON: 08/25/2020 HISTORY: Respiratory failure TECHNIQUE: FINDINGS: The endotracheal tube is 4.5 cm from the marley. Lungs are clear of consolidation. There ar e no hilar masses. There are sternal wires. Costophrenic angles are clear. There are chest leads. Bon y thorax is intact. There is some coarsening of interstitial markings in the left lower lobe IMPRESSION: There is some mild interstitial infiltrate and atelectasis left lower lobe which is not c hanged compared to old exam. No heart failure.
--- NOTE | 2022-04-18 22:54 | ED ---
General Adult HPI - General Chief complaint: Abdominal Pain Stated complaint: JUDAH,Nausea,Dehydration Time Seen by Provider: 04/18/22 21:22 Source: patient, RN notes reviewed, old records reviewed Mode of arrival: ambulatory Limitations: no limitations - History of Present Illness Initial comments: Patient is a 61-year-old male with past medical history remarkable for CAD, insulin pump depended diabetes type 1, History of CK D currently in the early st ages of discussing possible kidney transplant with his structural biologist Dr. Aranda who presents emergency Department complaining of weakness, nausea, vomiting for the last 3 days. States he feels weak. He is breathing quickly. Did not want, but eventually came with family. Denies any chest pain. Endorses increased shortness of breath. Endorses nausea, vomiting. Denies any chest pain, abdominal pain. Denies any urinary complaints. Denies any fevers, chills, cough. Is uncertain what is causing his nausea and vomiting. Presents for further evaluation at this time. Describes the emesis is nonbilious and nonbloody. Has been unable to hold any liquids down. Sugars have been running high at home. Insulin pump does not appear to be helping he states. - Related Data Home Medications Medication Instructions Recorded Confirmed Insulin Aspart (For Pump) [NovoLOG 0.01 unit SQ-PUMP CONTINUOUS 01/31/20 10/10/20 (For Pump)] Vitamin D3 (Unknown Strength) 1 tab PO DAILY 08/13/20 10/10/20 Ferrous Sulfate [Iron (65 MG 325 mg PO DAILY 10/10/20 10/10/20 Elemental)] Lasix 1 tab PO DAILY 10/10/20 Rosuvastatin [Crestor] 10 mg PO HS 10/14/20 10/14/20 Previous Rx's Medication Instructions Recorded Sodium Bicarbonate Tab 650 mg PO TID #90 tab 08/25/20 Aspirin 162 mg PO DAILY chew 10/15/20 Clopidogrel [Plavix] 75 mg PO DAILY 30 Days #30 tablet 10/15/20 Allergies Allergy/AdvReac Type Severity Reaction Status Date / Time No Known Allergies Allergy Verified 10/14/20 07:56 Review of Systems ROS Statement: Those systems with pertinent positive or pertinent negative responses have been documented in the HPI. Review of Systems: CONST: Denies fever EYES: Denies blurry vision ENT: Denies nasal congestion C/V: Denies Chest pain RESP: Endorses shortness of breath GI: Endorses nausea and vomiting : Denies dysuria SKIN: Denies rash. MSK: Denies joint pain. NEURO: Denies headache ROS Other: All systems not noted in ROS Statement are negative. Past Medical History Past Medical History: Coronary Artery Disease (CAD), Diabetes Mellitus, Eye Disorder, Hyperlipidemia, Myocardial Infarction ([place]), Renal Disease, Vascular Disorder Additional Past Medical History / Comment(s): IDDM type I with insulin pump, CKD stage IV, polyneuropathy, dupuytren's bilateral hands, chronic R foot ulcer, chronic bilateral foot pain, chronic low back pain/fracture, R eye cataract, left foot 2cnd and 3rd toe amputated Last Myocardial Infarction Date:: 08/13/20 History of Any Multi-Drug Resistant Organisms: MRSA Date of last positivie culture/infection: 2014 MDRO Source:: right foot Past Surgical History: Coronary Bypass/CABG, Heart Catheterization With Stent, Orthopedic Surgery Additional Past Surgical History / Comment(s): CABG X3 on 08/20/20, L hand fracture with pins, left 2nd and third toe amputation, colonoscopy, L cataract removal/lens implants Past Anesthesia/Blood Transfusion Reactions: No Reported Reaction Date of Last Stent Placement:: 2014 Past Psychological History: No Psychological Hx Reported Smoking Status: Former smoker Past Alcohol Use History: None Reported Past Drug Use History: None Reported - Past Family History Father Family Medical History: Diabetes Mellitus, Vascular Disorder Additional Family Medical History / Comment(s): Father of brain aneurysm. He had type I diabetes and it ran strongly on father's side of family Mother Family Medical History: Vascular Disorder Additional Family Medical History / Comment(s): Mother from a brain ane urysm. Brother(s) Family Medical History: COPD, Coronary Artery Disease (CAD) Additional Family Medical History / Comment(s): Brother had CABG in his early 50s Daughter(s) Family Medical History: Renal Disease Additional Family Medical History / Comment(s): Daughter of kidney disease General Exam - General Exam Comments Initial Comments: General: Appears in mild to moderate distress. Tachypnea. HEAD: Normal with no signs of head trauma. EYES: PERRLA, EOMI, conjunctiva normal, no discharge. ENT: Hearing grossly intact, normal oropharynx. Smells of acetone. Dry mucous membranes. RESPIRATORY: Clear breath sounds bilaterally. No wheezes, rales, or rhonchi. Tachypnea. No hypoxia. C/V: Regular rate and rhythm. S1 and S2 auscultated, no edema, peripheral pulses 2+ and intact throughout ABD: Abd is soft, nontender, nondistended EXT: Normal range of motion, no obvious deformity SKIN: No rashes or lesions observed on exposed skin. NEURO: Alert and oriented 4. No focal deficits. Limitations: no limitations Course Vital Signs 04/18/22 04/18/22 04/18/22 20:55 22:09 22:14 Temperature 97.4 F L Pulse Rate 71 Respiratory 26 H Rate Blood Pressure 97/50 O2 Sat by Pulse 98 Oximetry Fraction of 50 50 Inspired Oxygen (FIO2) 04/19/22 04/19/22 04/19/22 00:25 00:30 00:37 Temperature 97.6 F Pulse Rate 102 H Respiratory 36 H 33 H Rate Blood Pressure 151/88 O2 Sat by Pulse 100 Oximetry Fraction of 50 50 Inspired Oxygen (FIO2) 04/19/22 00:40 Temperature Pulse Rate 98 Respiratory 38 H Rate Blood Pressure 154/65 O2 Sat by Pulse 99 Oximetry Fraction of Inspired Oxygen (FIO2) Procedures - ABG Interpretation Ph: 7.023 PCO2: 26.9 PO2: 222 Bicarbonate: 7.0 Interpretation: metabolic acidosis - Intubation Sedative: Etomidate Mg Given: 20 Paralytic: Rocuronium Mg Given: 50 Laryngoscope: other (glidescope) Size: 4 ET Tube Size: 7.5 Tube Secured Depth (cm): 24 Tube Secured Location: other (gum) Tube Placement Confirmation: visualized tube passing through cords, equal breath sounds bilaterally, confirmation by capnometry Patient Tolerated Procedure: well Intubation Complications: none Medical Decision Making - Medical Decision Making Based on the patient's presentation and physical exam, I'm concerned for acute DKA secondary to his prolonged nausea and vomiting episodes in the last 3 days. Patient also appears to have hyperkalemic changes on EKG. Patient is communicating to me effectively, however his tachypnea. Blood pressures are slightly soft and 97/50. He appears dehydrated. Will be started on 2 L normal saline, will be given 10 units IV push insulin and started on an insulin drip, will be given hyperkalemia cocktail including insulin stated above, calcium gluconate, 1 amp of bicarb. We disconnected his insulin pump. He will be given antibiotics. He was in agreement with this plan. Broad workup will be obtained. EKG initially showed hyperkalemic changes. While blood work was attempted an IV access was obtained. Patient received Zofran as well as 15 units of insulin. While nursing staff and techs were doing this, patient became less responsive. He stopped talking. Began to experience bradycardia. He was immediately rushed from room 8 to trauma bay 1. Assisted respirations with bag valve mask. Preparation for intubation. Remains bradycardic. He received a total of 2 A of calcium chloride and 3 A of bicarb. His bradycardia resolved. Vital signs normalize. Was mildly sinus tachycardic with a regular rhythm. Had resolution of his QRS widening and hyperkalemic changes. At this time patient remained unresponsive and he was intubated for airway protection. GCS is approximately 4-5 at this time. Tolerated intubation well. Was started on a propofol drip. Additionally, patient is on a bicarb drip at 100 mL an hour, insulin drip per DKA protocol, propofol drip for sedation, and will be placed on 200 mL an hour of Normal saline maintenance fluids. Postintubation chest x-ray shows satisfactory tube placement.Chest x-ray does note a chronic infiltrate, patient was given a dose of Rocephin empirically. The patient's episode of unresponsiveness, was likely related to his acute bradycardic episode. Heart rates prior to treatment with hyperkalemic cocktail rapidly decreased from 50s and 60s to 20. Patient transiently became hypotensive during this period of time. Vital signs normalized after the above treatments with amps of calcium chloride and bicarb. ABG shows a metabolic acidosis with pH of 7.02, pCO2 of 26, PaO2 of 222, bicarb of 7. Laboratory studies are remarkable for a chronic macrocytic anemia with a hemoglobin of 7.6. Patient is a mild leukocytosis of 12.5. Acetones are positive. Covid is negative. Plasma lactic acid is 4.7.There Is a long delay in obtaining electrolyte values secondary to malfunctioning machine. I was notified by lab that the patient's like to lites returned. Sodium is 115, likely pseudohyponatremia secondary to a severely elevated glucose level which per lab, is greater than 1250 but they're still working on diluting it down for accurate level. Patient has a bicarb of 6. Patient is hyperkalemic to 8.9 with slight hemolysis. Patient has an elevated BUN of 73 and creatinine of 4.09 in the setting of CK D, both were some baseline. Appears to typically of a creatinine in the high 2's or 3. Urinalysis shows 4+ glucose and 1+ ketones. CT brain was obtained and reveals no acute intracranial process. There is cerebral atrophy. I updated the patient's family multiple times. Answered all questions that they had. They were in agreement management. Multiple attempts were made to place an OG tube which were unsuccessful. Ramirez catheter was placed by nursing staff. Patient requires ICU care. I spoke with Dr. Vora who accepted the admi ssion. Patient will be admitted under city call as no PCP is listed. I spoke with [facility] Dr. Tomlinson accepted the patient. Patient was admitted in serious condition to the ICU. - Lab Data Result diagrams: 04/18/22 21:50 04/18/22 21:50 Lab Results 04/18/22 04/18/22 04/18/22 Range/Units 20:58 21:42 21:50 WBC 12.5 H (3.8-10.6) k/uL RBC 2.49 L (4.30-5.90) m/uL Hgb 7.6 L (13.0-17.5) gm/dL Hct 28.6 L (39.0-53.0) % MCV 114.7 H (80.0-100.0) fL MCH 30.6 (25.0-35.0) pg MCHC 26.6 L (31.0-37.0) g/dL RDW 16.3 H (11.5-15.5) % Plt Count 395 (150-450) k/uL MPV 8.8 Hypochromasia Marked Anisocytosis Slight Macrocytosis Marked A PT (9.0-12.0) sec INR (<1.2) APTT (22.0-30.0) sec Sample Site ABG pH (7.35-7.45) ABG pCO2 (35-45) mmHg ABG pO2 (83-108) mmHg ABG HCO3 (21-25) mmol/L ABG Total CO2 (19-24) mmol/L ABG O2 Saturation (94-97) % ABG Base Excess mmol/L ABG Hematocrit (34.0-46.0) % Jere Test Hemoglobin (13.0-17.5) gm/dL FiO2 % Sodium (137-145) mmol/L Potassium (3.5-5.1) mmol/L Chloride (98-107) mmol/L Carbon Dioxide (22-30) mmol/L Anion Gap mmol/L BUN (9-20) mg/dL Creatinine (0.66-1.25) mg/dL Est GFR (CKD-EPI)AfAm (>60 ml/min/1.73 sqM) Est GFR (CKD-EPI)NonAf (>60 ml/min/1.73 sqM) Glucose (74-99) mg/dL POC Glucose (mg/dL) >600 H >600 H (70-110) mg/dL POC Glu [employer] Evens Prabhakar Kyle Lactic Ac Sepsis Rflx Plasma Lactic Acid Karlo (0.7-2.0) mmol/L Calcium (8.4-10.2) mg/dL Total Bilirubin (0.2-1.3) mg/dL AST (17-59) U/L ALT (4-49) U/L Alkaline Phosphatase (38-126) U/L Troponin I (0.000-0.034) ng/mL Total Protein (6.3-8.2) g/dL Albumin (3.5-5.0) g/dL Amylase (30-110) U/L Lipase (23-300) U/L Urine Color Urine Appearance (Clear) Urine pH (5.0-8.0) Ur Specific Mobile (1.001-1.035) Urine Protein (Negative) Urine Glucose (UA) (Negative) Urine Ketones (Negative) Urine Blood (Negative) Urine Nitrite (Negative) Urine Bilirubin (Negative) Urine Urobilinogen (<2.0) mg/dL Ur Leukocyte Esterase (Negative) Urine RBC (0-5) /hpf Urine WBC (0-5) /hpf Urine Mucus (None) /hpf Acetone, Qual (Negative) Coronavirus (PCR) (Not Detectd) 04/18/22 04/18/22 04/18/22 Range/Units 21:50 21:50 21:50 WBC (3.8-10.6) k/uL RBC (4.30-5.90) m/uL Hgb (13.0-17.5) gm/dL Hct (39.0-53.0) % MCV (80.0-100.0) fL MCH (25.0-35.0) pg MCHC (31.0-37.0) g/dL RDW (11.5-15.5) % Plt Count (150-450) k/uL MPV Hypochromasia Anisocytosis Macrocytosis PT 10.5 (9.0-12.0) sec INR 1.0 (<1.2) APTT 23.4 (22.0-30.0) sec Sample Site ABG pH (7.35-7.45) ABG pCO2 (35-45) mmHg ABG pO2 (83-108) mmHg ABG HCO3 (21-25) mmol/L ABG Total CO2 (19-24) mmol/L ABG O2 Saturation (94-97) % ABG Base Excess mmol/L ABG Hematocrit (34.0-46.0) % Jere Test Hemoglobin (13.0-17.5) gm/dL FiO2 % Sodium 115 L* (137-145) mmol/L Potassium 8.9 H* (3.5-5.1) mmol/L Chloride 82 L (98-107) mmol/L Carbon Dioxide 6 L* (22-30) mmol/L Anion Gap 27 mmol/L BUN 73 H (9-20) mg/dL Creatinine 4.09 H (0.66-1.25) mg/dL Est GFR (CKD-EPI)AfAm 17 (>60 ml/min/1.73 sqM) Est GFR (CKD-EPI)NonAf 15 (>60 ml/min/1.73 sqM) Glucose (74-99) mg/dL POC Glucose (mg/dL) (70-110) mg/dL POC Glu [employer] ID Lactic Ac Sepsis Rflx Plasma Lactic Acid Karlo 4.7 H* (0.7-2.0) mmol/L Calcium 8.4 (8.4-10.2) mg/dL Total Bilirubin 0.6 (0.2-1.3) mg/dL AST 68 H (17-59) U/L ALT 44 (4-49) U/L Alkaline Phosphatase 219 H (38-126) U/L Troponin I (0.000-0.034) ng/mL Total Protein 7.1 (6.3-8.2) g/dL Albumin 4.5 (3.5-5.0) g/dL Amylase 70 (30-110) U/L Lipase 69 (23-300) U/L Urine Color Urine Appearance (Clear) Urine pH (5.0-8.0) Ur Specific Mobile (1.001-1.035) Urine Protein (Negative) Urine Glucose (UA) (Negative) Urine Ketones (Negative) Urine Blood (Negative) Urine Nitrite (Negative) Urine Bilirubin (Negative) Urine Urobilinogen (<2.0) mg/dL Ur Leukocyte Esterase (Negative) Urine RBC (0-5) /hpf Urine WBC (0-5) /hpf Urine Mucus (None) /hpf Acetone, Qual Positive (Negative) Coronavirus (PCR) (Not Detectd) 04/18/22 04/18/22 04/18/22 Range/Units 21:50 22:10 22:23 WBC (3.8-10.6) k/uL RBC (4.30-5.90) m/uL Hgb (13.0-17.5) gm/dL Hct (39.0-53.0) % MCV (80.0-100.0) fL MCH (25.0-35.0) pg MCHC (31.0-37.0) g/dL RDW (11.5-15.5) % Plt Count (150-450) k/uL MPV Hypochromasia Anisocytosis Macrocytosis PT (9.0-12.0) sec INR (<1.2) APTT (22.0-30.0) sec Sample Site ABG pH (7.35-7.45) ABG pCO2 (35-45) mmHg ABG pO2 (83-108) mmHg ABG HCO3 (21-25) mmol/L ABG Total CO2 (19-24) mmol/L ABG O2 Saturation (94-97) % ABG Base Excess mmol/L ABG Hematocrit (34.0-46.0) % Jere Test Hemoglobin (13.0-17.5) gm/dL FiO2 % Sodium (137-145) mmol/L Potassium (3.5-5.1) mmol/L Chloride (98-107) mmol/L Carbon Dioxide (22-30) mmol/L Anion Gap mmol/L BUN (9-20) mg/dL Creatinine (0.66-1.25) mg/dL Est GFR (CKD-EPI)AfAm (>60 ml/min/1.73 sqM) Est GFR (CKD-EPI)NonAf (>60 ml/min/1.73 sqM) Glucose (74-99) mg/dL POC Glucose (mg/dL) >600 H (70-110) mg/dL POC Glu [employer] Handler ID Elyssa Stout Lactic Ac Sepsis Rflx Plasma Lactic Acid Karlo (0.7-2.0) mmol/L Calcium (8.4-10.2) mg/dL Total Bilirubin (0.2-1.3) mg/dL AST (17-59) U/L ALT (4-49) U/L Alkaline Phosphatase (38-126) U/L Troponin I 0.046 H* (0.000-0.034) ng/mL Total Protein (6.3-8.2) g/dL Albumin (3.5-5.0) g/dL Amylase (30-110) U/L Lipase (23-300) U/L Urine Color Urine Appearance (Clear) Urine pH (5.0-8.0) Ur Specific Mobile (1.001-1.035) Urine Protein (Negative) Urine Glucose (UA) (Negative) Urine Ketones (Negative) Urine Blood (Negative) Urine Nitrite (Negative) Urine Bilirubin (Negative) Urine Urobilinogen (<2.0) mg/dL Ur Leukocyte Esterase (Negative) Urine RBC (0-5) /hpf Urine WBC (0-5) /hpf Urine Mucus (None) /hpf Acetone, Qual (Negative) Coronavirus (PCR) Not Detected (Not Detectd) 04/18/22 04/18/22 04/18/22 Range/Units 22:24 22:30 22:34 WBC (3.8-10.6) k/uL RBC (4.30-5.90) m/uL Hgb (13.0-17.5) gm/dL Hct (39.0-53.0) % MCV (80.0-100.0) fL MCH (25.0-35.0) pg MCHC (31.0-37.0) g/dL RDW (11.5-15.5) % Plt Count (150-450) k/uL MPV Hypochromasia Anisocytosis Macrocytosis PT (9.0-12.0) sec INR (<1.2) APTT (22.0-30.0) sec Sample Site Right Radial ABG pH 7.02 L* (7.35-7.45) ABG pCO2 27 L (35-45) mmHg ABG pO2 222 H (83-108) mmHg ABG HCO3 7 L* (21-25) mmol/L ABG Total CO2 8 L (19-24) mmol/L ABG O2 Saturation 99.6 H (94-97) % ABG Base Excess -23.9 mmol/L ABG Hematocrit 22 L (34.0-46.0) % Jere Test Yes Hemoglobin 7.2 L (13.0-17.5) gm/dL FiO2 50 % Sodium (137-145) mmol/L Potassium (3.5-5.1) mmol/L Chloride (98-107) mmol/L Carbon Dioxide (22-30) mmol/L Anion Gap mmol/L BUN (9-20) mg/dL Creatinine (0.66-1.25) mg/dL Est GFR (CKD-EPI)AfAm (>60 ml/min/1.73 sqM) Est GFR (CKD-EPI)NonAf (>60 ml/min/1.73 sqM) Glucose (74-99) mg/dL POC Glucose (mg/dL) (70-110) mg/dL POC Glu [employer] Handler ID Lactic Ac Sepsis Rflx Y Plasma Lactic Acid Karlo (0.7-2.0) mmol/L Calcium (8.4-10.2) mg/dL Total Bilirubin (0.2-1.3) mg/dL AST (17-59) U/L ALT (4-49) U/L Alkaline Phosphatase (38-126) U/L Troponin I (0.000-0.034) ng/mL Total Protein (6.3-8.2) g/dL Albumin (3.5-5.0) g/dL Amylase (30-110) U/L Lipase (23-300) U/L Urine Color Light Yellow Urine Appearance Clear (Clear) Urine pH 5.5 (5.0-8.0) Ur Specific Mobile 1.015 (1.001-1.035) Urine Protein 1+ H (Negative) Urine Glucose (UA) 4+ H (Negative) Urine Ketones 1+ H (Negative) Urine Blood Negative (Negative) Urine Nitrite Negative (Negative) Urine Bilirubin Negative (Negative) Urine Urobilinogen <2.0 (<2.0) mg/dL Ur Leukocyte Esterase Negative (Negative) Urine RBC 1 (0-5) /hpf Urine WBC 1 (0-5) /hpf Urine Mucus Rare H (None) /hpf Acetone, Qual (Negative) Coronavirus (PCR) (Not Detectd) - EKG Data -: EKG Interpreted by Me EKG Comments: 12-lead Electrocardiogram Interpretation Note EKG was reviewed and interpreted by myself. 12-lead ECG performed at 2110 is interpreted by me as revealing normal sinus rhythm at a rate of 68 beats per minute. Indeterminate axis. QRS duration is prolonged at 249 ms, QTc is 545 ms.. There were no ST or T wave abnormalities to suggest myocardial ischemia or injury. Sinusoidal wave pattern, with peaked T waves and prolonged QRS. Concern for hyperkalemia in the in the setting of suspected DKA and hyperkalemia R wave progression across the precordium was satisfactory. By my interpretation this EKG is non-diagnostic for acute ischemia. It is concerning for hyperkalemia. 12-lead Electrocardiogram Interpretation Note EKG was reviewed and interpreted by myself. 12-lead ECG performed at 2235 is interpreted by me as revealing sinus tachycardia at a rate of 104 beats per minute. Gladys is normal. GA interval is 186 ms, QRS duration is 117 ms, QTc is 440 ms. Resolution of the prolonged QRS and sinusoidal wave pattern following treatment for hyperkalemia.. There were no ST or T wave abnormalities to s uggest myocardial ischemia or injury. R wave progression across the precordium was satisfactory. By my interpretation this EKG is non-diagnostic for acute ischemia. Critical Care Time Critical Care Time: Yes Total Critical Care Time: 35 Critical Care Time: Upon my evaluation, this patient had a high probability of imminent or life- threatening deterioration due to DKA, intubation due to respiratory failure, hyperkalemia, transient bradycardia, which required my direct attention, i ntervention, and personal management. I have personally provided 35 minutes of critical care time exclusive of time spent on separately billable procedures. Time includes review of laboratory data, radiology results, discussion with consultants, and monitoring for pot ential decompensation. Interventions were performed as documented in my note. Disposition Clinical Impression: Diabetic ketoacidosis, Endotracheally intubated, Respiratory failure, Hyperkalemia, Increased anion gap metabolic acidosis, CKD (chronic kidney disease), Elevated troponin, Bradycardia Disposition: ADMITTED IP TO THIS HOSP Condition: Serious Time of Disposition: 23:40
[2022-04-18] MEDS ORDERED: NALOXONE 0.4 MG/ML 1 ML VIAL IV PRN ×2 (23:07→23:47)
[2022-04-18 23:14] LABS: Appearance,Urine Clear (Clear); Bilirubin,Urine Negative (Negative); Blood,Urine Negative (Negative); Color,Urine Light Yellow; Glucose,Urine (UA) 4+ (Negative); Ketones,Urine 1+ (Negative); Leukocyte Esterase,Urine Negative (Negative); Mucus,Urine Rare /hpf; Nitrite,Urine Negative (Negative); PH, Urine 5.5 (5.0-8.0); Protein,Urine 1+ (Negative); RBC,Urine 1 /hpf (0-5); Specific Gravity,Urine 1.015 (1.001-1.035); Urobilinogen,Urine <2.0 mg/dL (<2.0); WBC,Urine 1 /hpf (0-5)
[2022-04-19 00:11] LABS: ALT 44 U/L (4-49); African American GFR (CKD) 17 (>60 ml/min/1.73 sqM); Albumin 4.5 g/dL (3.5-5.0); Amylase 70 U/L (30-110); Anion Gap 27 mmol/L; Blood Urea Nitrogen 73 mg/dL (9-20); Calcium 8.4 mg/dL (8.4-10.2); Chloride 82 mmol/L (98-107); Lipase 69 U/L (23-300); Non-African American GFR(CKD) 15 (>60 ml/min/1.73 sqM); Total Bilirubin 0.6 mg/dL (0.2-1.3); Total Protein 7.1 g/dL (6.3-8.2)
[2022-04-19 00:27] LABS: Glucose,Whole Blood >600 mg/dL (70-110)
[2022-04-19 00:28] LABS: Potassium 8.9 mmol/L (3.5-5.1)
[2022-04-19 00:29] LABS: AST 68 U/L (17-59); Alkaline Phosphatase 219 U/L (38-126); Carbon Dioxide 6 mmol/L (22-30); Sodium 115 mmol/L (137-145)
--- NOTE | 2022-04-19 00:29 | CT ---
EXAMINATION TYPE: CT brain wo con DATE OF EXAM: 04/19/2022 COMPARISON: None HISTORY: AMS. no prior on PACS CT DLP: 1178.4 mGycm Automated exposure control for dose reduction was used. There is cerebral cortical atrophy. There is no mass effect or midline shift. No sign of intracranial hemorrhage. Calvarium is intact. There is normal aeration of the mastoid sinuses. Skull base is inta ct. IMPRESSION: Cerebral atrophy. No acute intracranial abnormality.
[2022-04-19] MEDS: INSULIN REGULAR 100 UNIT in SODIUM CHLORIDE 0.9% 100 ML IV SCH ×3 (00:43→14:20)
[2022-04-19 01:05] LABS: Phosphorus 5.7 mg/dL (2.5-4.5); Potassium 5.2 mmol/L (3.5-5.1)
[2022-04-19 01:24] LABS: Glucose,Whole Blood >600 mg/dL (70-110)
[2022-04-19 01:39] LABS: Glucose 1255 mg/dL (74-99)
[2022-04-19 01:53] LABS: Anisocytosis (M) Present; Poikilocytosis (M) Present
[2022-04-19 01:54] LABS: Crenated RBC Present
--- NOTE | 2022-04-19 02:08 | XR ---
EXAMINATION TYPE: XR chest 1V portable DATE OF EXAM: 04/19/2022 COMPARISON: Yesterday HISTORY: Check tube placement TECHNIQUE: Single view FINDINGS: Heart is normal. Lungs are clear of infiltrate. No heart failure. There is endotracheal tub e 5.5 cm from the marley. There are chest leads. No pleural effusion. No evidence of pneumothorax. Tr achea is midline. There is gastric tube with the tip overlying the stomach and probably in the gastric fundus. IMPRESSION: No cardiopulmonary disease. Gastric tube probably in good position. Tip not included on t he exam. Normal heart.
[2022-04-19] MEDS: SODIUM CHLORIDE 0.9% 1,000 ML IV SCH ×4 (02:31→13:02)
[2022-04-19 02:37] LABS: Glucose,Whole Blood >600 mg/dL (70-110)
[2022-04-19] MEDS: HEPARIN SODIUM,PORCINE/PF 5,000 UNIT/0.5 ML SYRINGE SQ SCH ×3 (03:04→17:25)
[2022-04-19 03:46] LABS: Glucose,Whole Blood >600 mg/dL (70-110)
[2022-04-19 04:33] LABS: Glucose,Whole Blood >600 mg/dL (70-110)
[2022-04-19 05:23] LABS: ABG Base Excess -3.2 mmol/L; ABG HCO3 19 mmol/L (21-25); ABG PCO2 21 mmHg (35-45); ABG PO2 207 mmHg (83-108); ABG TCO2 20 mmol/L (19-24); Allen Test Performed? Yes
[2022-04-19 05:24] LABS: Anisocytosis Slight; Basophils % (A) 0 %; Eosinophils % (A) 0 %; HCT 20.7 % (39.0-53.0); Lymphocytes # (A) 0.8 k/uL (1.0-4.8); Lymphocytes % (A) 10 %; MCH 31.8 pg (25.0-35.0); MCHC 33.2 g/dL (31.0-37.0); Mean Platelet Volume 7.7; Monocytes # (A) 0.3 k/uL (0-1.0); Monocytes % (A) 4 %; Neutrophils # (A) 6.8 k/uL (1.3-7.7); Neutrophils % (A) 85 %; Platelet Count 327 k/uL (150-450); RBC 2.16 m/uL (4.30-5.90); RDW 16.1 % (11.5-15.5)
[2022-04-19 05:26] LABS: ABG Hematocrit 21 % (34.0-46.0); ABG PH 7.57 (7.35-7.45)
[2022-04-19 05:41] LABS: HGB 6.9 gm/dL (13.0-17.5); MCV 95.8 fL (80.0-100.0)
[2022-04-19 05:47] LABS: Glucose,Whole Blood >600 mg/dL (70-110)
[2022-04-19 06:25] LABS: Albumin 3.3 g/dL (3.5-5.0); Calcium 9.2 mg/dL (8.4-10.2); Magnesium 1.7 mg/dL (1.6-2.3); Phosphorus 2.7 mg/dL (2.5-4.5); Potassium 3.7 mmol/L (3.5-5.1)
[2022-04-19 06:26] LABS: Total Bilirubin 0.2 mg/dL (0.2-1.3); Total Protein 5.6 g/dL (6.3-8.2)
[2022-04-19 06:56] LABS: Glucose,Whole Blood >600 mg/dL (70-110)
[2022-04-19 08:04] LABS: Glucose,Whole Blood >600 mg/dL (70-110)
[2022-04-19] MEDS: CHLORHEXIDINE GLUCONATE 15 ML CUP MUCOUS MEM SCH ×2 (08:26→20:03)
[2022-04-19 09:02] LABS: Glucose,Whole Blood 578 mg/dL (70-110)
--- NOTE | 2022-04-19 09:25 | P.NPCON ---
History of Present Illness - Reason for Consult acute renal failure - History of Present Illness Patient is a 61-year-old male with history of chronic kidney disease NKF stage IV secondary to diabetic nephropathy and nephrosclerosis with baseline creatinine around 3 mg/dL as of 10/15/2020. Patient also has an underlying history of diabetes and coronary artery disease status post coronary artery bypass surgery in August 2020. Patient is admitted to the hospital with complaints of increased weakness, nausea and vomiting. Patient was found to be in DKA. In the ER patient became bradycardic and unresponsive and was therefore intubated. Serum potassium was 8.9 with serum sodium of 115 on admission, CO2 was 6 and serum creatinine was 4.0. Patient was started on insulin drip. He has had good urine output. Serum creatinine has improved Potassium is down to 3.7 and sodium is up to 127 today. Patient had been on a bicarb drip which is now discontinued. No history of fever. No obvious source of infection noted Hemoglobin was 6.9 and patient received 1 unit packed RBCs No active bleeding noted. Review of Systems As per GI other systems negative Past Medical History Past Medical History: Coronary Artery Disease (CAD), Diabetes Mellitus, Eye Disorder, Hyperlipidemia, Myocardial Infarction ([place]), Renal Disease, Vascular Disorder Additional Past Medical History / Comment(s): IDDM type I with insulin pump, CKD stage IV, polyneuropathy, dupuytren's bilateral hands, chronic R foot ulcer, chronic bilateral foot pain, chronic low back pain/fracture, R eye cataract, left foot 2cnd and 3rd toe amputated Last Myocardial Infarction Date:: 08/13/20 History of Any Multi-Drug Resistant Organisms: MRSA Date of last positivie culture/infection: 2014 MDRO Source:: right foot Past Surgical History: Coronary Bypass/CABG, Heart Catheterization With Stent, Orthopedic Surgery Additional Past Surgical History / Comment(s): CABG X3 on 08/20/20, L hand fracture with pins, left 2nd and third toe amputation, colonoscopy, L cataract removal/lens implants Past Anesthesia/Blood Transfusion Reactions: No Reported Reaction Date of Last Stent Placement:: 2014 Past Psychological History: No Psychological Hx Reported Smoking Status: Former smoker Past Alcohol Use History: None Reported Past Drug Use History: None Reported - Past Family History Father Family Medical History: Diabetes Mellitus, Vascular Disorder Additional Family Medical History / Comment(s): Father of brain aneurysm. He had type I diabetes and it ran strongly on father's side of family Mother Family Medical History: Vascular Disorder Additional Family Medical History / Comment(s): Mother from a brain aneurysm. Brother(s) Family Medical History: COPD, Coronary Artery Disease (CAD) Additional Family Medical History / Comment(s): Brother had CABG in his early 50s Daughter(s) Family Medical History: Renal Disease Additional Family Medical History / Comment(s): Daughter of kidney disease Medications and Allergies Home Medications Medication Instructions Recorded Confirmed Type Insulin Aspart (For Pump) [NovoLOG 0.01 unit SQ-PUMP CONTINUOUS 01/31/20 10/10/20 History (For Pump)] Vitamin D3 (Unknown Strength) 1 tab PO DAILY 08/13/20 10/10/20 History Sodium Bicarbonate Tab 650 mg PO TID #90 tab 08/25/20 10/10/20 Rx Ferrous Sulfate [Iron (65 MG 325 mg PO DAILY 10/10/20 10/10/20 History Elemental)] Lasix 1 tab PO DAILY 10/10/20 History Rosuvastatin [Crestor] 10 mg PO HS 10/14/20 10/14/20 History Aspirin 162 mg PO DAILY chew 10/15/20 Rx Clopidogrel [Plavix] 75 mg PO DAILY 30 Days #30 tablet 10/15/20 Rx Allergies Allergy/AdvReac Type Severity Reaction Status Date / Time No Known Allergies Allergy Verified 10/14/20 07:56 Physical Exam Vitals: Vital Signs Temp Pulse Resp BP Pulse Ox FiO2 04/19/22 08:00 98.9 F 102 H 26 H 148/75 100 50 04/19/22 07:28 50 04/19/22 07:00 84 26 H 152/76 100 04/19/22 06:00 84 26 H 116/70 99 04/19/22 05:45 85 26 H 100 04/19/22 05:40 50 04/19/22 05:30 86 26 H 100 04/19/22 05:15 86 26 H 116/70 100 04/19/22 05:00 85 26 H 99 04/19/22 04:45 98 26 H 100 04/19/22 04:30 87 26 H 100 04/19/22 04:15 98 F 87 30 H 122/80 100 50 04/19/22 04:00 84 26 H 100 04/19/22 03:45 84 26 H 100 04/19/22 03:30 86 26 H 100 04/19/22 03:15 85 26 H 122/71 99 50 04/19/22 03:12 26 H 50 04/19/22 03:00 84 26 H 138/104 100 04/19/22 02:45 87 26 H 144/76 99 04/19/22 02:39 50 04/19/22 02:30 87 26 H 136/110 100 04/19/22 02:18 26 H 50 04/19/22 02:15 87 26 H 117/69 99 04/19/22 02:00 85 26 H 105/69 100 04/19/22 01:45 84 27 H 112/68 100 04/19/22 01:30 86 40 H 113/72 100 04/19/22 01:15 92 36 H 139/76 100 04/19/22 01:00 97 38 H 135/70 99 04/19/22 00:40 98 38 H 154/65 99 04/19/22 00:37 50 04/19/22 00:30 97.6 F 102 H 33 H 151/88 100 50 04/19/22 00:25 36 H 04/18/22 22:09 50 04/18/22 20:55 97.4 F L 71 26 H 97/50 98 Intake and Output 04/18/22 04/19/22 04/19/22 22:59 06:59 14:59 Intake Total 1789.490 415.64 Output Total 1535 325 Balance 254.490 90.64 Intake: IV 1700 400 Dextrose 5% in Water 1, 500 000 ml @ 100 mls/hr IV . [id number] JACKI with Sodium Bicarb (1 Meq/ml) 150 ml Rx#:[id number] Sodium Chloride 0.9% 1, 1200 400 000 ml @ 200 mls/hr IV . Q5H [facility]ACK[facility] Rx#:[id number] Intake, IV Titration 89.490 15.64 Amount Insulin Regular 100 unit 60.112 15.64 In Sodium Chloride 0.9% 100 ml @ 0.1 UNITS/KG/HR 5.818 mls/hr IV .[id number] JACKI Rx#:[id number] propofoL 1,000 mg In 29.378 Empty Bag 1 bag @ 5 MCG/ KG/MIN 1.728 mls/hr IV . Q24H [facility] Rx#:[id number] Output: Urine 1535 325 Other: Voiding Method Indwelling Catheter Weight 57.606 kg 59.8 kg Patient is intubated he is comfortable he is awake though. Examination of the heart S1 and S2 Examination of the lungs bilateral breath sounds are heard Abdomen is soft nontender Examination of lower extremity shows no significant edema patient has significant muscle atrophy. He had been moving all 4 extremities Results - Lab Results Most recent lab results ABG pH 7.57 (7.35-7.45) H* 04/19/22 05:20 ABG pCO2 21 mmHg (35-45) L 04/19/22 05:20 ABG pO2 207 mmHg (83-108) H 04/19/22 05:20 ABG HCO3 19 mmol/L (21-25) L 04/19/22 05:20 ABG O2 Saturation 100.0 % (94-97) H 04/19/22 05:20 Calcium 9.2 mg/dL (8.4-10.2) 04/19/22 05:00 Phosphorus 2.7 mg/dL (2.5-4.5) 04/19/22 05:00 Magnesium 1.7 mg/dL (1.6-2.3) 04/19/22 05:00 04/19/22 05:00 04/19/22 05:00 Assessment and Plan Assessment: 1. Acute kidney injury ATN currently nonoliguric with improving renal function. UA shows 1+ protein and no blood. Definitely a component of significant hypovolemia is also present. Continue with IV fluids and avoid nephrotoxic agents 2. CK D stage IV secondary to nephrosclerosis and diabetic kidney disease with baseline creatinine around 3 mg/dL 3. Coronary artery disease status post coronary artery bypass surgery in August 2020 4. DKA maintained on insulin drip currently improving 5. Severe metabolic acidosis anion gap associated with DKA and acute kidney injury currently improving 6. Hyponatremia secondary to severe hyperglycemia currently improved 7. Hyperkalemia associated with acute kidney injury DKA, metabolic acidosis currently improved 8. Anemia status post packed RBCs transfusion. No active bleeding noted most likely anemia of chronic disease, need to rule out iron deficiency Plan: Continue with normal saline Check iron profile Add Aranesp Repeat labs later on today Agree with discontinuation of bicarb drip
[2022-04-19] MEDS ORDERED: DARBEPOETIN ALFA 60 MCG/0.3 ML SYRINGE SQ SCH (10:00)
[2022-04-19 10:09] LABS: Glucose,Whole Blood 468 mg/dL (70-110)
[2022-04-19 11:00] LABS: Glucose,Whole Blood 391 mg/dL (70-110)
[2022-04-19] MEDS ORDERED: DEXTROSE 5%-0.45% NACL 1,000 ML with POTASSIUM CHLORIDE 20 MEQ IV SCH ×2 (11:15)
[2022-04-19 11:59] LABS: Glucose,Whole Blood 267 mg/dL (70-110)
[2022-04-19] MEDS ORDERED: D5-0.45% NACL WITH KCL 20MEQ/L 1,000 ML IV SCH (12:00)
--- NOTE | 2022-04-19 12:42 | P.CNPUL ---
History of Present Illness Consult date: 04/19/22 Chief complaint: DKA History of present illness: This is a 61-year-old male patient, multiple medical comorbidities including type 1 diabetes mellitus with insulin and insulin pump. The patient has also chronic stage for kidney disease and he has extensive number of medical problems and comorbidities. He came into the emergency department with generalized weakness and nausea vomiting of 3 days' duration. He was feeling very sick. He denied having any chest pain. Denied having any urinary complaints. No reported fever or chills. Sugars have been running high at home. In the emergency, he needed to the patient was found to be having significant electrolyte abnormalities. His sodium was 115 with a potassium level VIII.9 and chloride is 112 with a serum bicarb of 6 with a creatinine of 4.0 and albumin of 73. His initial blood sugar was above 1000. He had a lactic acid level of 4.7. As the patient was being worked up, the patient became bradycardic and he became hemodynamically unstable and unresponsive. At that point, it was decided to immediately intubated patient became on a mechanical ventilator. The patient had treatment for hyperkalemia and he was given calcium gluconate and initially was given 15 units of insulin he was started on a bicarb infusion which was running at the rate of 100 mL an hour. He was transferred to the intensive care unit. This morning, the patient is on propofol at 75 mcg/kg per minute. He is on a mechanical ventilator on assist control mode at the rate of 26 and tidal volume 500 and FiO2 of 50% with a PEEP of 5. Blood gases were showing significant respiratory alkalosis as the patient was being given a high minute ventilation while being on a mechanical ventilator. Appropriate ventilator changes were done. Earlier this morning, the patient was also taken off the bicarb infusion. The most recent electrolytes after being treated with a DKA protocol showed of the patient has a sodium level of 127 with a potassium level of 3.7 and chloride of 95 with a bicarb of 16 and the BUN is a 76 and a creatinine of 3.3. Blood sugar is improving and currently is down to 267. The patient was receiving insulin drip for blood sugar control and the dose was being titrated based on the protocol and it was as high as 14 units per hour.. Earlier this morning the patient also had a drop in hemoglobin down to 6.9. He suffers from chronic anemia and the patient has no signs of any GI bleeding. He was ordered a unit of packed RBC. Hemoglobin is at 8 with a platelet count of 327. Degenerative packed RBC was also ordered. He has required no pressors. He is hemodynamically stable. Chest x-ray shows no acute abnormalities. ET tube is in a good location. The computed tomography scan of the brain was also negative. Review of Systems ROS unobtainable: due to endotracheal tube, due to mental status Past Medical History Past Medical History: Coronary Artery Disease (CAD), Diabetes Mellitus, Eye Disorder, Hyperlipidemia, Myocardial Infarction ([place]), Renal Disease, Vascular Disorder Additional Past Medical History / Comment(s): IDDM type I with insulin pump, CKD stage IV, polyneuropathy, dupuytren's bilateral hands, chronic R foot ulcer, chronic bilateral foot pain, chronic low back pain/fracture, R eye cataract, left foot 2cnd and 3rd toe amputated Last Myocardial Infarction Date:: 08/13/20 History of Any Multi-Drug Resistant Organisms: MRSA Date of last positivie culture/infection: 2014 MDRO Source:: right foot Past Surgical History: Coronary Bypass/CABG, Heart Catheterization With Stent, Orthopedic Surgery Additional Past Surgical History / Comment(s): CABG X3 on 08/20/20, L hand fracture with pins, left 2nd and third toe amputation, colonoscopy, L cataract removal/lens implants Past Anesthesia/Blood Transfusion Reactions: No Reported Reaction Date of Last Stent Placement:: 2014 Past Psychological History: No Psychological Hx Reported Smoking Status: Former smoker Past Alcohol Use History: None Reported Past Drug Use History: None Reported - Past Family History Father Family Medical History: Diabetes Mellitus, Vascular Disorder Additional Family Medical History / Comment(s): Father of brain aneurysm. He had type I diabetes and it ran strongly on father's side of family Mother Family Medical History: Vascular Disorder Additional Family Medical History / Comment(s): Mother from a brain aneur ysm. Brother(s) Family Medical History: COPD, Coronary Artery Disease (CAD) Additional Family Medical History / Comment(s): Brother had CABG in his early 50s Daughter(s) Family Medical History: Renal Disease Additional Family Medical History / Comment(s): Daughter of kidney disease Medications and Allergies Home Medications Medication Instructions Recorded Confirmed Type Insulin Aspart (For Pump) [NovoLOG 0.01 unit SQ-PUMP CONTINUOUS 01/31/20 04/19/22 History (For Pump)] Calcium/Vitamin D3 1 tab PO DAILY 04/19/22 04/19/22 History Cholecalciferol [Vitamin D3 (25 25 mcg PO DAILY 04/19/22 04/19/22 History Mcg = 1000 Iu)] Glycopyrrolate [Robinul] 1 mg PO BID 04/19/22 04/19/22 History Rosuvastatin [Crestor] 20 mg PO DAILY 04/19/22 04/19/22 History amLODIPine [Norvasc] 10 mg PO DAILY 04/19/22 04/19/22 History Allergies Allergy/AdvReac Type Severity Reaction Status Date / Time No Known Allergies Allergy Verified 10/14/20 07:56 Physical Exam Vitals: Vital Signs Temp Pulse Resp BP Pulse Ox FiO2 04/19/22 08:00 98.9 F 102 H 26 H 148/75 100 50 04/19/22 07:28 50 04/19/22 07:00 84 26 H 152/76 100 04/19/22 06:00 84 26 H 116/70 99 04/19/22 05:45 85 26 H 100 04/19/22 05:40 50 04/19/22 05:30 86 26 H 100 04/19/22 05:15 86 26 H 116/70 100 04/19/22 05:00 85 26 H 99 04/19/22 04:45 98 26 H 100 04/19/22 04:30 87 26 H 100 04/19/22 04:15 98 F 87 30 H 122/80 100 50 04/19/22 04:00 84 26 H 100 04/19/22 03:45 84 26 H 100 04/19/22 03:30 86 26 H 100 04/19/22 03:15 85 26 H 122/71 99 50 04/19/22 03:12 26 H 50 04/19/22 03:00 84 26 H 138/104 100 04/19/22 02:45 87 26 H 144/76 99 04/19/22 02:39 50 04/19/22 02:30 87 26 H 136/110 100 04/19/22 02:18 26 H 50 04/19/22 02:15 87 26 H 117/69 99 04/19/22 02:00 85 26 H 105/69 100 04/19/22 01:45 84 27 H 112/68 100 04/19/22 01:30 86 40 H 113/72 100 04/19/22 01:15 92 36 H 139/76 100 04/19/22 01:00 97 38 H 135/70 99 04/19/22 00:40 98 38 H 154/65 99 04/19/22 00:37 50 04/19/22 00:30 97.6 F 102 H 33 H 151/88 100 50 04/19/22 00:25 36 H 04/18/22 22:09 50 04/18/22 20:55 97.4 F L 71 26 H 97/50 98 Intake and Output 04/18/22 04/19/22 04/19/22 22:59 06:59 14:59 Intake Total 1789.490 215.64 Output Total 1535 200 Balance 254.490 15.64 Intake: IV 1700 200 Dextrose 5% in Water 1, 500 000 ml @ 100 mls/hr IV . [id number] JACKI with Sodium Bicarb (1 Meq/ml) 150 ml Rx#:[id number] Sodium Chloride 0.9% 1, 1200 200 000 ml @ 200 mls/hr IV . Q5H [facility] Rx#:[id number] Intake, IV Titration 89.490 15.64 Amount Insulin Regular 100 unit 60.112 15.64 In Sodium Chloride 0.9% 100 ml @ 0.1 UNITS/KG/HR 5.818 mls/hr IV .[id number] [facility] Rx#:[id number] propofoL 1,000 mg In 29.378 Empty Bag 1 bag @ 5 MCG/ KG/MIN 1.728 mls/hr IV . Q24H [facility] Rx#:[id number] Output: Urine 1535 200 Other: Voiding Method Indwelling Catheter Weight 57.606 kg 59.8 kg Gen. appearance the patient is sedated, comfortable intubated on a mechanical ventilator, calm and comfortable and orogastric and orotracheal tube in place. Cardiac exam revealed the PMI to be normally situated and sized. The rhythm was regular and no extrasystoles were noted during several minutes of auscultation. The first and second heart sounds were normal and physiologic splitting of the second heart sound was noted. There were no murmurs, rubs, clicks, or gallops. Neck was supple and without jugular venous distension, thyromegaly, or carotid bruits. Carotids were easily palpable bilaterally. There was no adenopathy. Lungs were clear to auscultation and percussion, and with normal diaphragmatic excursion. No wheezes or rales were noted. Head exam was generally normal. There was no scleral icterus or corneal arcus. Mucous membranes were moist. Abdominal exam revealed normal bowel sounds. The abdomen was soft, non-tender, and without masses, organomegaly, or appreciable enlargement of the abdominal aorta. Extremities are showing diffuse malaise the. Diminished pulses. No cyanosis or clubbing. Evidence of chronic neuropathy. No open wounds or sores. Results - Laboratory Findings CBC and BMP: 04/19/22 05:00 04/19/22 05:00 ABG ABG pH 7.57 (7.35-7.45) H* 04/19/22 05:20 ABG pCO2 21 mmHg (35-45) L 04/19/22 05:20 ABG pO2 207 mmHg (83-108) H 04/19/22 05:20 ABG O2 Saturation 100.0 % (94-97) H 04/19/22 05:20 PT/INR, D-dimer PT 10.5 sec (9.0-12.0) 04/18/22 21:50 INR 1.0 (<1.2) 04/18/22 21:50 Abnormal lab findings: Abnormal Labs 04/18/22 04/18/22 04/18/22 20:58 21:42 21:50 WBC 12.5 H RBC 2.49 L Hgb 7.6 L Hct 28.6 L MCV 114.7 H MCHC 26.6 L RDW 16.3 H Neutrophils # 11.4 H Lymphocytes # 0.6 L Macrocytosis Marked A ABG pH ABG pCO2 ABG pO2 ABG HCO3 ABG Total CO2 ABG O2 Saturation ABG Hematocrit Hemoglobin Sodium Potassium Chloride Carbon Dioxide BUN Creatinine Glucose POC Glucose (mg/dL) >600 H >600 H Plasma Lactic Acid Karlo Phosphorus AST ALT Alkaline Phosphatase Troponin I Total Protein Albumin Urine Protein Urine Glucose (UA) Urine Ketones Urine Mucus 04/18/22 04/18/22 04/18/22 21:50 21:50 21:50 WBC RBC Hgb Hct MCV MCHC RDW Neutrophils # Lymphocytes # Macrocytosis ABG pH ABG pCO2 ABG pO2 ABG HCO3 ABG Total CO2 ABG O2 Saturation ABG Hematocrit Hemoglobin Sodium 115 L* Potassium 8.9 H* Chloride 82 L Carbon Dioxide 6 L* BUN 73 H Creatinine 4.09 H Glucose 1255 H* POC Glucose (mg/dL) Plasma Lactic Acid Karlo 4.7 H* Phosphorus AST 68 H ALT Alkaline Phosphatase 219 H Troponin I 0.046 H* Total Protein Albumin Urine Protein Urine Glucose (UA) Urine Ketones Urine Mucus 04/18/22 04/18/22 04/18/22 22:23 22:24 22:30 WBC RBC Hgb Hct MCV MCHC RDW Neutrophils # Lymphocytes # Macrocytosis ABG pH 7.02 L* ABG pCO2 27 L ABG pO2 222 H ABG HCO3 7 L* ABG Total CO2 8 L ABG O2 Saturation 99.6 H ABG Hematocrit 22 L Hemoglobin 7.2 L Sodium Potassium Chloride Carbon Dioxide BUN Creatinine Glucose POC Glucose (mg/dL) >600 H Plasma Lactic Acid Karlo Phosphorus AST ALT Alkaline Phosphatase Troponin I Total Protein Albumin Urine Protein 1+ H Urine Glucose (UA) 4+ H Urine Ketones 1+ H Urine Mucus Rare H 04/18/22 04/19/22 04/19/22 23:50 00:25 01:23 WBC RBC Hgb Hct MCV MCHC RDW Neutrophils # Lymphocytes # Macrocytosis ABG pH ABG pCO2 ABG pO2 ABG HCO3 ABG Total CO2 ABG O2 Saturation ABG Hematocrit Hemoglobin Sodium 124 L Potassium 5.2 H Chloride 89 L Carbon Dioxide 11 L BUN 72 H Creatinine 3.58 H Glucose 1090 H* POC Glucose (mg/dL) >600 H >600 H Plasma Lactic Acid Karlo Phosphorus 5.7 H AST ALT Alkaline Phosphatase Troponin I Total Protein Albumin Urine Protein Urine Glucose (UA) Urine Ketones Urine Mucus 04/19/22 04/19/22 04/19/22 01:26 01:26 02:36 WBC RBC Hgb Hct MCV MCHC RDW Neutrophils # Lymphocytes # Macrocytosis ABG pH ABG pCO2 ABG pO2 ABG HCO3 ABG Total CO2 ABG O2 Saturation ABG Hematocrit Hemoglobin Sodium Potassium Chloride Carbon Dioxide BUN Creatinine Glucose POC Glucose (mg/dL) >600 H Plasma Lactic Acid Karlo 2.8 H* Phosphorus AST ALT Alkaline Phosphatase Troponin I 0.096 H* Total Protein Albumin Urine Protein Urine Glucose (UA) Urine Ketones Urine Mucus 04/19/22 04/19/22 04/19/22 03:45 04:31 05:00 WBC RBC Hgb Hct MCV MCHC RDW Neutrophils # Lymphocytes # Macrocytosis ABG pH ABG pCO2 ABG pO2 ABG HCO3 ABG Total CO2 ABG O2 Saturation ABG Hematocrit Hemoglobin Sodium 127 L Potassium Chloride 95 L Carbon Dioxide 16 L BUN 76 H Creatinine 3.38 H Glucose 772 H* POC Glucose (mg/dL) >600 H >600 H Plasma Lactic Acid Karlo Phosphorus AST 82 H ALT 57 H Alkaline Phosphatase 181 H Troponin I Total Protein 5.6 L Albumin 3.3 L Urine Protein Urine Glucose (UA) Urine Ketones Urine Mucus 04/19/22 04/19/22 04/19/22 05:00 05:00 05:00 WBC RBC 2.16 L Hgb 6.9 L* Hct 20.7 L MCV MCHC RDW 16.1 H Neutrophils # Lymphocytes # 0.8 L Macrocytosis ABG pH ABG pCO2 ABG pO2 ABG HCO3 ABG Total CO2 ABG O2 Saturation ABG Hematocrit Hemoglobin Sodium Potassium Chloride Carbon Dioxide BUN Creatinine Glucose POC Glucose (mg/dL) Plasma Lactic Acid Karlo 2.2 H* Phosphorus AST ALT Alkaline Phosphatase Troponin I 0.181 H* Total Protein Albumin Urine Protein Urine Glucose (UA) Urine Ketones Urine Mucus 04/19/22 04/19/22 04/19/22 05:20 05:46 06:54 WBC RBC Hgb Hct MCV MCHC RDW Neutrophils # Lymphocytes # Macrocytosis ABG pH 7.57 H* ABG pCO2 21 L ABG pO2 207 H ABG HCO3 19 L ABG Total CO2 ABG O2 Saturation 100.0 H ABG Hematocrit 21 L Hemoglobin 6.8 L* Sodium Potassium Chloride Carbon Dioxide BUN Creatinine Glucose POC Glucose (mg/dL) >600 H >600 H Plasma Lactic Acid Karlo Phosphorus AST ALT Alkaline Phosphatase Troponin I Total Protein Albumin Urine Protein Urine Glucose (UA) Urine Ketones Urine Mucus 04/19/22 08:03 WBC RBC Hgb Hct MCV MCHC RDW Neutrophils # Lymphocytes # Macrocytosis ABG pH ABG pCO2 ABG pO2 ABG HCO3 ABG Total CO2 ABG O2 Saturation ABG Hematocrit Hemoglobin Sodium Potassium Chloride Carbon Dioxide BUN Creatinine Glucose POC Glucose (mg/dL) >600 H Plasma Lactic Acid Karlo Phosphorus AST ALT Alkaline Phosphatase Troponin I Total Protein Albumin Urine Protein Urine Glucose (UA) Urine Ketones Urine Mucus - Diagnostic Findings Chest x-ray: image reviewed Assessment and Plan Plan: DKA with severe hyperglycemia metabolic acidosis Acute hyperkalemia Acute hemodynamic instability with bradycardia, related to hyperkalemia, treated with a potassium level is normalized Bradycardia hemodynamic instability to continue to hyperkalemia, recovered and the current cardiac her cardiac rhythm is sinus Acute pseudohyponatremia secondary to hyperglycemia Acute on top of chronic kidney injury, improving. The patient is known to have stage IV chronic kidney disease Acute respiratory arrest secondary bradycardia and hemodynamic instability, intubated on a mechanical ventilator. History of severe carotid artery stenosis of greater than 95% status post right carotid endarterectomy with patch angioplasty Left carotid artery stenosis of 70%, and the plan is to proceed with left carotid endarterectomy in 6 weeks Chronic anemia, with acute drop in the hemoglobin and the patient received a unit of packed RBC Previous history of non-ST elevated myocardial infarction in August 2020 Coronary artery disease status post off-pump three-vessel coronary bypass grafting in August 20, 2020 Diabetes mellitus type 1, maintained on insulin pump Hypertension Chronic kidney disease stage III-IV at baseline Anemia of chronic kidney disease Former smoker, 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 The respiratory rate will be dropped down to 16 with an FiO2 of 40%. Monitor the blood gases Continue treatment based on DKA protocol. We'll switch this patient with D5 half-normal saline once the blood sugar is less than 250. Monitor electrolytes Monitor potassium level Keep the patient sedated with propofol Transfused with a unit of packed RBC No weaning trials for today. We'll proceed with weaning once the patient's the case fully treated. Condition is critical we'll continue to follow monitor the patient ICU for now. nephrology consultation.
[2022-04-19] MEDS: D5-0.9% NACL WITH KCL 20 MEQ/L 1,000 ML IV SCH ×2 (13:00→19:48)
[2022-04-19 13:06] LABS: Glucose,Whole Blood 209 mg/dL (70-110)
[2022-04-19] MEDS ORDERED: POTASSIUM BICARBONATE/CIT AC 20 MEQ TABLET.EFF PO ONE ×2 (13:16→20:53)
--- NOTE | 2022-04-19 13:36 | P.HPIM ---
History of Present Illness 61-year-old male came in with nausea vomiting which is going on for 3 days patient was feeling really sick. Patient has type 1 diabetes mellitus on insulin pump. Patient blood sugars are high for last to 3 days as per the patient's brother. Patient is found to have blood sugars of around 100 patient is found to be in DKA or hyperosmolar state patient was started on IV insulin. Patient potassium is found to be high before he received any treatment patient to became hemodynamically unstable unresponsive and was subsequently intubated and was started on mechanical ventilator. Patient had a severe metabolic acidosis, diabetic ketoacidosis. Patient is probably presently on assist- control ventilation. Patient hemoglobin did go down to 6.9 MCV of around 95.8. Patient is receiving 1 unit of packed red blood cells. Patient is not requiring any pressors at this time. REVIEW OF SYSTEMS: Unable to obtain as patient is intubated PHYSICAL EXAMINATION: GENERAL: Intubated sedated HEENT: Pupils are round and equally reacting to light. EOMI. No scleral icterus. No conjunctival pallor. Normocephalic, atraumatic. No pharyngeal erythema. No thyromegaly. CARDIOVASCULAR: S1 and S2 present. No murmurs, rubs, or gallops. PULMONARY: Chest is clear to auscultation, no wheezing or crackles. ABDOMEN: Soft, nontender, nondistended, normoactive bowel sounds. No palpable organomegaly. MUSCULOSKELETAL: No joint swelling or deformity. EXTREMITIES: No cyanosis, clubbing, or pedal edema. NEUROLOGICAL: Limited as patient is sedated SKIN: No rashes. Assessment and plan -Diabetic ketoacidosis highly elevated blood sugars patient may even have diabetic hyperosmolar state. Patient regarding IV insulin blood sugars have come down patient the is being transitioned to D5 normal saline with potassium supplementation -Hyperosmolar hyponatremia secondary to hyperglycemia patient may have hypervolemic hyponatremia as well -Severe hyperkalemia secondary to anion gap metabolic acidosis -Anion gap metabolic acidosis secondary to diabetic ketoacidosis -Severe bradycardia secondary to hyperkalemia which improved at this time potassiums levels are normalized now after treatment and aggressive measures -acute the respiratory failure etiology is metabolic acidosis and encephalopathy, patient is presently intubated -Chronic anemia etiology of anemia is unknown patient is receiving packed red blood cells further workup for chronic anemia can be done as an outpatient but will obtain a ferritin level. -Coronary artery bypass and CABG in the past next and-type 1 diabetes mellitus on insulin pump: Insulin pump will be evaluated for mild functioning -Hypertension -Chronic kidney disease stage IV with baseline creatinine of around 3 present creatinine is around 3. There may be a competent of acute renal failure from a severe intravascular depletion from hyperglycemia -History of proximal LAD atrial fibrillation after CABG but not on any anti- correlation at this time -COPD without any acute exacerbation -Troponin elevation: Minimal secondary to diabetic ketoacidosis and chronic kidney disease. DVT prophylaxis: Subcutaneous heparin Past Medical History Past Medical History: Coronary Artery Disease (CAD), Diabetes Mellitus, Eye Disorder, Hyperlipidemia, Myocardial Infarction (ME), Renal Disease, Vascular Disorder Additional Past Medical History / Comment(s): IDDM type I with insulin pump, CKD stage IV, polyneuropathy, dupuytren's bilateral hands, chronic R foot ulcer, chronic bilateral foot pain, chronic low back pain/fracture, R eye cataract, left foot 2cnd and 3rd toe amputated Last Myocardial Infarction Date:: 08/13/20 History of Any Multi-Drug Resistant Organisms: MRSA Date of last positivie culture/infection: 2014 MDRO Source:: right foot Past Surgical History: Coronary Bypass/CABG, Heart Catheterization With Stent, Orthopedic Surgery Additional Past Surgical History / Comment(s): CABG X3 on 08/20/20, L hand fracture with pins, left 2nd and third toe amputation, colonoscopy, L cataract removal/lens implants Past Anesthesia/Blood Transfusion Reactions: No Reported Reaction Date of Last Stent Placement:: 2014 Past Psychological History: No Psychological Hx Reported Smoking Status: Former smoker Past Alcohol Use History: None Reported Past Drug Use History: None Reported - Past Family History Father Family Medical History: Diabetes Mellitus, Vascular Disorder Additional Family Medical History / Comment(s): Father of brain aneurysm. He had type I diabetes and it ran strongly on father's side of family Mother Family Medical History: Vascular Disorder Additional Family Medical History / Comment(s): Mother from a brain aneurysm. Brother(s) Family Medical History: COPD, Coronary Artery Disease (CAD) Additional Family Medical History / Comment(s): Brother had CABG in his early 50s Daughter(s) Family Medical History: Renal Disease Additional Family Medical History / Comment(s): Daughter of kidney disease Medications and Allergies Home Medications Medication Instructions Recorded Confirmed Type Insulin Aspart (For Pump) [NovoLOG 0.01 unit SQ-PUMP CONTINUOUS 01/31/20 04/19/22 History (For Pump)] Calcium/Vitamin D3 1 tab PO DAILY 04/19/22 04/19/22 History Cholecalciferol [Vitamin D3 (25 25 mcg PO DAILY 04/19/22 04/19/22 History Mcg = 1000 Iu)] Glycopyrrolate [Robinul] 1 mg PO BID 04/19/22 04/19/22 History Rosuvastatin [Crestor] 20 mg PO DAILY 04/19/22 04/19/22 History amLODIPine [Norvasc] 10 mg PO DAILY 04/19/22 04/19/22 History Allergies Allergy/AdvReac Type Severity Reaction Status Date / Time No Known Allergies Allergy Verified 10/14/20 07:56 Physical Exam Vitals: Vital Signs Temp Pulse Resp BP Pulse Ox FiO2 04/19/22 13:00 85 23 154/75 100 40 04/19/22 12:00 98.3 F 81 22 146/73 99 04/19/22 11:55 98.3 F 81 22 146/73 99 04/19/22 11:17 40 04/19/22 11:09 40 04/19/22 11:00 80 22 148/70 99 04/19/22 10:24 98.3 F 84 23 144/69 99 04/19/22 10:04 98.3 F 86 24 133/65 99 04/19/22 10:00 98.3 F 85 20 137/65 98 04/19/22 09:54 98.3 F 85 24 137/65 04/19/22 09:44 98.5 F 85 22 135/66 04/19/22 09:00 84 21 166/85 99 04/19/22 08:00 98.9 F 102 H 26 H 148/75 100 50 04/19/22 07:28 50 04/19/22 07:00 84 26 H 152/76 100 04/19/22 06:00 84 26 H 116/70 99 04/19/22 05:45 85 26 H 100 04/19/22 05:30 86 26 H 100 04/19/22 05:15 86 26 H 116/70 100 04/19/22 05:00 85 26 H 99 04/19/22 04:45 98 26 H 100 04/19/22 04:30 87 26 H 100 04/19/22 04:15 98 F 87 30 H 122/80 100 50 04/19/22 04:00 84 26 H 100 04/19/22 03:45 84 26 H 100 04/19/22 03:30 86 26 H 100 04/19/22 03:15 85 26 H 122/71 99 50 04/19/22 03:12 26 H 50 04/19/22 03:00 84 26 H 138/104 100 04/19/22 02:45 87 26 H 144/76 99 04/19/22 02:39 50 04/19/22 02:30 87 26 H 136/110 100 04/19/22 02:18 26 H 50 04/19/22 02:15 87 26 H 117/69 99 04/19/22 02:00 85 26 H 105/69 100 04/19/22 01:45 84 27 H 112/68 100 04/19/22 01:30 86 40 H 113/72 100 04/19/22 01:15 92 36 H 139/76 100 04/19/22 01:00 97 38 H 135/70 99 04/19/22 00:40 98 38 H 154/65 99 04/19/22 00:37 50 04/19/22 00:30 97.6 F 102 H 33 H 151/88 100 50 04/19/22 00:25 36 H 04/18/22 22:09 50 04/18/22 20:55 97.4 F L 71 26 H 97/50 98 Intake and Output 04/18/22 04/19/22 04/19/22 22:59 06:59 14:59 Intake Total 0466.056 6702.896 Output Total 1535 605 Balance 440.184 5219.896 Intake: IV 1700 800 Dextrose 5% in Water 1, 500 000 ml @ 100 mls/hr IV . [id number] JACKI with Sodium Bicarb (1 Meq/ml) 150 ml Rx#:[id number] Sodium Chloride 0.9% 1, 1200 800 000 ml @ 200 mls/hr IV . Q5H JACKI Rx#:[id number] Intake, IV Titration 89.490 584.896 Amount D5-0.45% NaCl with KCl 150 20Meq/l 1,000 ml @ 150 mls/hr IV .[id number] JACKI Rx# :[id number] D5-0.9% NaCl with KCl 20 150 Meq/l 1,000 ml @ 150 mls/ hr IV .Q6H40M JACKI Rx#: [id number] Insulin Regular 100 unit 60.112 78.323 In Sodium Chloride 0.9% 100 ml @ 0.1 UNITS/KG/HR 5.818 mls/hr IV .[id number] JACKI Rx#:[id number] propofoL 1,000 mg In 29.378 206.573 Empty Bag 1 bag @ 5 MCG/ KG/MIN 1.728 mls/hr IV . Q24H JACKI Rx#:[id number] Blood Product 310 Rc As-1 Unit 310 [id number] Output: Urine 1535 605 Other: Voiding Method Indwelling Catheter Weight 57.606 kg 59.8 kg Results CBC & Chem 7: 04/19/22 05:00 04/19/22 05:00 Labs: Abnormal Lab Results - Last 24 Hours (Table) 04/18/22 04/18/22 04/18/22 Range/Units 20:58 21:42 21:50 WBC 12.5 H (3.8-10.6) k/uL RBC 2.49 L (4.30-5.90) m/uL Hgb 7.6 L (13.0-17.5) gm/dL Hct 28.6 L (39.0-53.0) % MCV 114.7 H (80.0-100.0) fL MCHC 26.6 L (31.0-37.0) g/dL RDW 16.3 H (11.5-15.5) % Neutrophils # 11.4 H (1.3-7.7) k/uL Lymphocytes # 0.6 L (1.0-4.8) k/uL Macrocytosis Marked A ABG pH (7.35-7.45) ABG pCO2 (35-45) mmHg ABG pO2 (83-108) mmHg ABG HCO3 (21-25) mmol/L ABG Total CO2 (19-24) mmol/L ABG O2 Saturation (94-97) % ABG Hematocrit (34.0-46.0) % Hemoglobin (13.0-17.5) gm/dL Sodium (137-145) mmol/L Potassium (3.5-5.1) mmol/L Chloride (98-107) mmol/L Carbon Dioxide (22-30) mmol/L BUN (9-20) mg/dL Creatinine (0.66-1.25) mg/dL Glucose (74-99) mg/dL POC Glucose (mg/dL) >600 H >600 H (70-110) mg/dL Plasma Lactic Acid Karlo (0.7-2.0) mmol/L Phosphorus (2.5-4.5) mg/dL AST (17-59) U/L ALT (4-49) U/L Alkaline Phosphatase (38-126) U/L Troponin I (0.000-0.034) ng/mL Total Protein (6.3-8.2) g/dL Albumin (3.5-5.0) g/dL Urine Protein (Negative) Urine Glucose (UA) (Negative) Urine Ketones (Negative) Urine Mucus (None) /hpf Crossmatch 04/18/22 04/18/22 04/18/22 Range/Units 21:50 21:50 21:50 WBC (3.8-10.6) k/uL RBC (4.30-5.90) m/uL Hgb (13.0-17.5) gm/dL Hct (39.0-53.0) % MCV (80.0-100.0) fL MCHC (31.0-37.0) g/dL RDW (11.5-15.5) % Neutrophils # (1.3-7.7) k/uL Lymphocytes # (1.0-4.8) k/uL Macrocytosis ABG pH (7.35-7.45) ABG pCO2 (35-45) mmHg ABG pO2 (83-108) mmHg ABG HCO3 (21-25) mmol/L ABG Total CO2 (19-24) mmol/L ABG O2 Saturation (94-97) % ABG Hematocrit (34.0-46.0) % Hemoglobin (13.0-17.5) gm/dL Sodium 115 L* (137-145) mmol/L Potassium 8.9 H* (3.5-5.1) mmol/L Chloride 82 L (98-107) mmol/L Carbon Dioxide 6 L* (22-30) mmol/L BUN 73 H (9-20) mg/dL Creatinine 4.09 H (0.66-1.25) mg/dL Glucose 1255 H* (74-99) mg/dL POC Glucose (mg/dL) (70-110) mg/dL Plasma Lactic Acid Karlo 4.7 H* (0.7-2.0) mmol/L Phosphorus (2.5-4.5) mg/dL AST 68 H (17-59) U/L ALT (4-49) U/L Alkaline Phosphatase 219 H (38-126) U/L Troponin I 0.046 H* (0.000-0.034) ng/mL Total Protein (6.3-8.2) g/dL Albumin (3.5-5.0) g/dL Urine Protein (Negative) Urine Glucose (UA) (Negative) Urine Ketones (Negative) Urine Mucus (None) /hpf Crossmatch 04/18/22 04/18/22 04/18/22 Range/Units 22:23 22:24 22:30 WBC (3.8-10.6) k/uL RBC (4.30-5.90) m/uL Hgb (13.0-17.5) gm/dL Hct (39.0-53.0) % MCV (80.0-100.0) fL MCHC (31.0-37.0) g/dL RDW (11.5-15.5) % Neutrophils # (1.3-7.7) k/uL Lymphocytes # (1.0-4.8) k/uL Macrocytosis ABG pH 7.02 L* (7.35-7.45) ABG pCO2 27 L (35-45) mmHg ABG pO2 222 H (83-108) mmHg ABG HCO3 7 L* (21-25) mmol/L ABG Total CO2 8 L (19-24) mmol/L ABG O2 Saturation 99.6 H (94-97) % ABG Hematocrit 22 L (34.0-46.0) % Hemoglobin 7.2 L (13.0-17.5) gm/dL Sodium (137-145) mmol/L Potassium (3.5-5.1) mmol/L Chloride (98-107) mmol/L Carbon Dioxide (22-30) mmol/L BUN (9-20) mg/dL Creatinine (0.66-1.25) mg/dL Glucose (74-99) mg/dL POC Glucose (mg/dL) >600 H (70-110) mg/dL Plasma Lactic Acid Karlo (0.7-2.0) mmol/L Phosphorus (2.5-4.5) mg/dL AST (17-59) U/L ALT (4-49) U/L Alkaline Phosphatase (38-126) U/L Troponin I (0.000-0.034) ng/mL Total Protein (6.3-8.2) g/dL Albumin (3.5-5.0) g/dL Urine Protein 1+ H (Negative) Urine Glucose (UA) 4+ H (Negative) Urine Ketones 1+ H (Negative) Urine Mucus Rare H (None) /hpf Crossmatch 04/18/22 04/19/22 04/19/22 Range/Units 23:50 00:25 01:23 WBC (3.8-10.6) k/uL RBC (4.30-5.90) m/uL Hgb (13.0-17.5) gm/dL Hct (39.0-53.0) % MCV (80.0-100.0) fL MCHC (31.0-37.0) g/dL RDW (11.5-15.5) % Neutrophils # (1.3-7.7) k/uL Lymphocytes # (1.0-4.8) k/uL Macrocytosis ABG pH (7.35-7.45) ABG pCO2 (35-45) mmHg ABG pO2 (83-108) mmHg ABG HCO3 (21-25) mmol/L ABG Total CO2 (19-24) mmol/L ABG O2 Saturation (94-97) % ABG Hematocrit (34.0-46.0) % Hemoglobin (13.0-17.5) gm/dL Sodium 124 L (137-145) mmol/L Potassium 5.2 H (3.5-5.1) mmol/L Chloride 89 L (98-107) mmol/L Carbon Dioxide 11 L (22-30) mmol/L BUN 72 H (9-20) mg/dL Creatinine 3.58 H (0.66-1.25) mg/dL Glucose 1090 H* (74-99) mg/dL POC Glucose (mg/dL) >600 H >600 H (70-110) mg/dL Plasma Lactic Acid Karlo (0.7-2.0) mmol/L Phosphorus 5.7 H (2.5-4.5) mg/dL AST (17-59) U/L ALT (4-49) U/L Alkaline Phosphatase (38-126) U/L Troponin I (0.000-0.034) ng/mL Total Protein (6.3-8.2) g/dL Albumin (3.5-5.0) g/dL Urine Protein (Negative) Urine Glucose (UA) (Negative) Urine Ketones (Negative) Urine Mucus (None) /hpf Crossmatch 04/19/22 04/19/22 04/19/22 Range/Units 01:26 01:26 02:36 WBC (3.8-10.6) k/uL RBC (4.30-5.90) m/uL Hgb (13.0-17.5) gm/dL Hct (39.0-53.0) % MCV (80.0-100.0) fL MCHC (31.0-37.0) g/dL RDW (11.5-15.5) % Neutrophils # (1.3-7.7) k/uL Lymphocytes # (1.0-4.8) k/uL Macrocytosis ABG pH (7.35-7.45) ABG pCO2 (35-45) mmHg ABG pO2 (83-108) mmHg ABG HCO3 (21-25) mmol/L ABG Total CO2 (19-24) mmol/L ABG O2 Saturation (94-97) % ABG Hematocrit (34.0-46.0) % Hemoglobin (13.0-17.5) gm/dL Sodium (137-145) mmol/L Potassium (3.5-5.1) mmol/L Chloride (98-107) mmol/L Carbon Dioxide (22-30) mmol/L BUN (9-20) mg/dL Creatinine (0.66-1.25) mg/dL Glucose (74-99) mg/dL POC Glucose (mg/dL) >600 H (70-110) mg/dL Plasma Lactic Acid Karlo 2.8 H* (0.7-2.0) mmol/L Phosphorus (2.5-4.5) mg/dL AST (17-59) U/L ALT (4-49) U/L Alkaline Phosphatase (38-126) U/L Troponin I 0.096 H* (0.000-0.034) ng/mL Total Protein (6.3-8.2) g/dL Albumin (3.5-5.0) g/dL Urine Protein (Negative) Urine Glucose (UA) (Negative) Urine Ketones (Negative) Urine Mucus (None) /hpf Crossmatch 04/19/22 04/19/22 04/19/22 Range/Units 03:45 04:31 05:00 WBC (3.8-10.6) k/uL RBC (4.30-5.90) m/uL Hgb (13.0-17.5) gm/dL Hct (39.0-53.0) % MCV (80.0-100.0) fL MCHC (31.0-37.0) g/dL RDW (11.5-15.5) % Neutrophils # (1.3-7.7) k/uL Lymphocytes # (1.0-4.8) k/uL Macrocytosis ABG pH (7.35-7.45) ABG pCO2 (35-45) mmHg ABG pO2 (83-108) mmHg ABG HCO3 (21-25) mmol/L ABG Total CO2 (19-24) mmol/L ABG O2 Saturation (94-97) % ABG Hematocrit (34.0-46.0) % Hemoglobin (13.0-17.5) gm/dL Sodium 127 L (137-145) mmol/L Potassium (3.5-5.1) mmol/L Chloride 95 L (98-107) mmol/L Carbon Dioxide 16 L (22-30) mmol/L BUN 76 H (9-20) mg/dL Creatinine 3.38 H (0.66-1.25) mg/dL Glucose 772 H* (74-99) mg/dL POC Glucose (mg/dL) >600 H >600 H (70-110) mg/dL Plasma Lactic Acid Karlo (0.7-2.0) mmol/L Phosphorus (2.5-4.5) mg/dL AST 82 H (17-59) U/L ALT 57 H (4-49) U/L Alkaline Phosphatase 181 H (38-126) U/L Troponin I (0.000-0.034) ng/mL Total Protein 5.6 L (6.3-8.2) g/dL Albumin 3.3 L (3.5-5.0) g/dL Urine Protein (Negative) Urine Glucose (UA) (Negative) Urine Ketones (Negative) Urine Mucus (None) /hpf Crossmatch 04/19/22 04/19/22 04/19/22 Range/Units 05:00 05:00 05:00 WBC (3.8-10.6) k/uL RBC 2.16 L (4.30-5.90) m/uL Hgb 6.9 L* (13.0-17.5) gm/dL Hct 20.7 L (39.0-53.0) % MCV (80.0-100.0) fL MCHC (31.0-37.0) g/dL RDW 16.1 H (11.5-15.5) % Neutrophils # (1.3-7.7) k/uL Lymphocytes # 0.8 L (1.0-4.8) k/uL Macrocytosis ABG pH (7.35-7.45) ABG pCO2 (35-45) mmHg ABG pO2 (83-108) mmHg ABG HCO3 (21-25) mmol/L ABG Total CO2 (19-24) mmol/L ABG O2 Saturation (94-97) % ABG Hematocrit (34.0-46.0) % Hemoglobin (13.0-17.5) gm/dL Sodium (137-145) mmol/L Potassium (3.5-5.1) mmol/L Chloride (98-107) mmol/L Carbon Dioxide (22-30) mmol/L BUN (9-20) mg/dL Creatinine (0.66-1.25) mg/dL Glucose (74-99) mg/dL POC Glucose (mg/dL) (70-110) mg/dL Plasma Lactic Acid Karlo 2.2 H* (0.7-2.0) mmol/L Phosphorus (2.5-4.5) mg/dL AST (17-59) U/L ALT (4-49) U/L Alkaline Phosphatase (38-126) U/L Troponin I 0.181 H* (0.000-0.034) ng/mL Total Protein (6.3-8.2) g/dL Albumin (3.5-5.0) g/dL Urine Protein (Negative) Urine Glucose (UA) (Negative) Urine Ketones (Negative) Urine Mucus (None) /hpf Crossmatch 04/19/22 04/19/22 04/19/22 Range/Units 05:20 05:46 06:33 WBC (3.8-10.6) k/uL RBC (4.30-5.90) m/uL Hgb (13.0-17.5) gm/dL Hct (39.0-53.0) % MCV (80.0-100.0) fL MCHC (31.0-37.0) g/dL RDW (11.5-15.5) % Neutrophils # (1.3-7.7) k/uL Lymphocytes # (1.0-4.8) k/uL Macrocytosis ABG pH 7.57 H* (7.35-7.45) ABG pCO2 21 L (35-45) mmHg ABG pO2 207 H (83-108) mmHg ABG HCO3 19 L (21-25) mmol/L ABG Total CO2 (19-24) mmol/L ABG O2 Saturation 100.0 H (94-97) % ABG Hematocrit 21 L (34.0-46.0) % Hemoglobin 6.8 L* (13.0-17.5) gm/dL Sodium (137-145) mmol/L Potassium (3.5-5.1) mmol/L Chloride (98-107) mmol/L Carbon Dioxide (22-30) mmol/L BUN (9-20) mg/dL Creatinine (0.66-1.25) mg/dL Glucose (74-99) mg/dL POC Glucose (mg/dL) >600 H (70-110) mg/dL Plasma Lactic Acid Karlo (0.7-2.0) mmol/L Phosphorus (2.5-4.5) mg/dL AST (17-59) U/L ALT (4-49) U/L Alkaline Phosphatase (38-126) U/L Troponin I (0.000-0.034) ng/mL Total Protein (6.3-8.2) g/dL Albumin (3.5-5.0) g/dL Urine Protein (Negative) Urine Glucose (UA) (Negative) Urine Ketones (Negative) Urine Mucus (None) /hpf Crossmatch See Detail 04/19/22 04/19/22 04/19/22 Range/Units 06:54 08:03 08:59 WBC (3.8-10.6) k/uL RBC (4.30-5.90) m/uL Hgb (13.0-17.5) gm/dL Hct (39.0-53.0) % MCV (80.0-100.0) fL MCHC (31.0-37.0) g/dL RDW (11.5-15.5) % Neutrophils # (1.3-7.7) k/uL Lymphocytes # (1.0-4.8) k/uL Macrocytosis ABG pH (7.35-7.45) ABG pCO2 (35-45) mmHg ABG pO2 (83-108) mmHg ABG HCO3 (21-25) mmol/L ABG Total CO2 (19-24) mmol/L ABG O2 Saturation (94-97) % ABG Hematocrit (34.0-46.0) % Hemoglobin (13.0-17.5) gm/dL Sodium (137-145) mmol/L Potassium (3.5-5.1) mmol/L Chloride (98-107) mmol/L Carbon Dioxide (22-30) mmol/L BUN (9-20) mg/dL Creatinine (0.66-1.25) mg/dL Glucose (74-99) mg/dL POC Glucose (mg/dL) >600 H >600 H 578 H (70-110) mg/dL Plasma Lactic Acid Karlo (0.7-2.0) mmol/L Phosphorus (2.5-4.5) mg/dL AST (17-59) U/L ALT (4-49) U/L Alkaline Phosphatase (38-126) U/L Troponin I (0.000-0.034) ng/mL Total Protein (6.3-8.2) g/dL Albumin (3.5-5.0) g/dL Urine Protein (Negative) Urine Glucose (UA) (Negative) Urine Ketones (Negative) Urine Mucus (None) /hpf Crossmatch 04/19/22 04/19/22 04/19/22 Range/Units 10:07 10:58 11:58 WBC (3.8-10.6) k/uL RBC (4.30-5.90) m/uL Hgb (13.0-17.5) gm/dL Hct (39.0-53.0) % MCV (80.0-100.0) fL MCHC (31.0-37.0) g/dL RDW (11.5-15.5) % Neutrophils # (1.3-7.7) k/uL Lymphocytes # (1.0-4.8) k/uL Macrocytosis ABG pH (7.35-7.45) ABG pCO2 (35-45) mmHg ABG pO2 (83-108) mmHg ABG HCO3 (21-25) mmol/L ABG Total CO2 (19-24) mmol/L ABG O2 Saturation (94-97) % ABG Hematocrit (34.0-46.0) % Hemoglobin (13.0-17.5) gm/dL Sodium (137-145) mmol/L Potassium (3.5-5.1) mmol/L Chloride (98-107) mmol/L Carbon Dioxide (22-30) mmol/L BUN (9-20) mg/dL Creatinine (0.66-1.25) mg/dL Glucose (74-99) mg/dL POC Glucose (mg/dL) 468 H 391 H 267 H (70-110) mg/dL Plasma Lactic Acid Karlo (0.7-2.0) mmol/L Phosphorus (2.5-4.5) mg/dL AST (17-59) U/L ALT (4-49) U/L Alkaline Phosphatase (38-126) U/L Troponin I (0.000-0.034) ng/mL Total Protein (6.3-8.2) g/dL Albumin (3.5-5.0) g/dL Urine Protein (Negative) Urine Glucose (UA) (Negative) Urine Ketones (Negative) Urine Mucus (None) /hpf Crossmatch 04/19/22 Range/Units 13:05 WBC (3.8-10.6) k/uL RBC (4.30-5.90) m/uL Hgb (13.0-17.5) gm/dL Hct (39.0-53.0) % MCV (80.0-100.0) fL MCHC (31.0-37.0) g/dL RDW (11.5-15.5) % Neutrophils # (1.3-7.7) k/uL Lymphocytes # (1.0-4.8) k/uL Macrocytosis ABG pH (7.35-7.45) ABG pCO2 (35-45) mmHg ABG pO2 (83-108) mmHg ABG HCO3 (21-25) mmol/L ABG Total CO2 (19-24) mmol/L ABG O2 Saturation (94-97) % ABG Hematocrit (34.0-46.0) % Hemoglobin (13.0-17.5) gm/dL Sodium (137-145) mmol/L Potassium (3.5-5.1) mmol/L Chloride (98-107) mmol/L Carbon Dioxide (22-30) mmol/L BUN (9-20) mg/dL Creatinine (0.66-1.25) mg/dL Glucose (74-99) mg/dL POC Glucose (mg/dL) 209 H (70-110) mg/dL Plasma Lactic Acid Karlo (0.7-2.0) mmol/L Phosphorus (2.5-4.5) mg/dL AST (17-59) U/L ALT (4-49) U/L Alkaline Phosphatase (38-126) U/L Troponin I (0.000-0.034) ng/mL Total Protein (6.3-8.2) g/dL Albumin (3.5-5.0) g/dL Urine Protein (Negative) Urine Glucose (UA) (Negative) Urine Ketones (Negative) Urine Mucus (None) /hpf Crossmatch Thrombosis Risk Factor Assmnt - Choose All That Apply Any of the Below Risk Factors Present?: No Other Risk Factors: Yes Each Risk Factor Represents 2 Points: Age 61-74 years Other congenital or acquired thrombophilia - If yes, enter type in comment: No Thrombosis Risk Factor Assessment Total Risk Factor Score: 2 Thrombosis Risk Factor Assessment Level: Low Risk
[2022-04-19 14:21] LABS: Glucose,Whole Blood 167 mg/dL (70-110)
[2022-04-19 15:13] LABS: Glucose,Whole Blood 124 mg/dL (70-110)
[2022-04-19 16:23] LABS: Glucose,Whole Blood 90 mg/dL (70-110)
[2022-04-19 16:48] LABS: Glucose,Whole Blood 76 mg/dL (70-110)
[2022-04-19 17:06] LABS: Glucose,Whole Blood 79 mg/dL (70-110)
--- NOTE | 2022-04-19 17:09 | CT ---
EXAMINATION TYPE: CT brain wo con DATE OF EXAM: 04/19/2022 COMPARISON: Today HISTORY: unequal pupils CT DLP: 1217.4 mGycm Automated exposure control for dose reduction was used. Images of the brain obtained without contrast. There is cerebral cortical atrophy. There is hypodensity in the periventricular white matter. The rony varium is intact. The skull base is intact. There is normal aeration of the mastoid sinuses. IMPRESSION: Cerebral atrophy and chronic small vessel ischemia. No acute intracranial abnormality. No change comp ared to exam earlier today.
[2022-04-19 17:31] LABS: Glucose,Whole Blood 72 mg/dL (70-110)
[2022-04-19 18:06] LABS: Glucose,Whole Blood 103 mg/dL (70-110)
[2022-04-19 18:27] LABS: Basophils % (A) 0 %; Eosinophils # (A) 0.1 k/uL (0-0.7); Eosinophils % (A) 1 %; HCT 28.6 % (39.0-53.0); Lymphocytes # (A) 1.1 k/uL (1.0-4.8); Lymphocytes % (A) 8 %; MCH 30.5 pg (25.0-35.0); MCHC 34.3 g/dL (31.0-37.0); Mean Platelet Volume 7.2; Monocytes % (A) 7 %; Neutrophils # (A) 11.7 k/uL (1.3-7.7); Neutrophils % (A) 82 %; Platelet Count 366 k/uL (150-450); RBC 3.21 m/uL (4.30-5.90); RDW 15.9 % (11.5-15.5); WBC 14.3 k/uL (3.8-10.6)
[2022-04-19 18:46] LABS: % Iron Saturation 8.16 (15.00-50.00)
[2022-04-19 18:46] LABS: HGB 9.8 gm/dL (13.0-17.5)
[2022-04-19 18:56] LABS: Glucose,Whole Blood 96 mg/dL (70-110)
[2022-04-19 19:35] LABS: Glucose,Whole Blood 99 mg/dL (70-110)
[2022-04-19 20:31] LABS: Glucose,Whole Blood 132 mg/dL (70-110)
[2022-04-19] MEDS: PANTOPRAZOLE 40 MG/10 ML VIAL IVP SCH (21:24)
[2022-04-19] MEDS: HYDROmorphone 1 MG/ML 1 ML SYRINGE IVP PRN (21:49)
[2022-04-19 21:50] LABS: Glucose,Whole Blood 202 mg/dL (70-110)
[2022-04-19 22:48] LABS: Glucose,Whole Blood 176 mg/dL (70-110)
[2022-04-19 23:52] LABS: Glucose,Whole Blood 150 mg/dL (70-110)
[2022-04-20 00:55] LABS: Glucose,Whole Blood 152 mg/dL (70-110)
[2022-04-20 01:51] LABS: Glucose,Whole Blood 167 mg/dL (70-110)
[2022-04-20] MEDS: HEPARIN SODIUM,PORCINE/PF 5,000 UNIT/0.5 ML SYRINGE SQ SCH ×3 (01:53→21:07)
[2022-04-20] MEDS: D5-0.9% NACL WITH KCL 20 MEQ/L 1,000 ML IV SCH ×2 (02:12→09:24)
[2022-04-20 02:48] LABS: Glucose,Whole Blood 170 mg/dL (70-110)
[2022-04-20 04:02] LABS: Glucose,Whole Blood 177 mg/dL (70-110)
[2022-04-20 04:56] LABS: Glucose,Whole Blood 190 mg/dL (70-110)
[2022-04-20 05:47] LABS: Glucose,Whole Blood 186 mg/dL (70-110)
[2022-04-20 05:49] LABS: ABG Base Excess -3.9 mmol/L; ABG HCO3 21 mmol/L (21-25); ABG Hematocrit 25 % (34.0-46.0); ABG Oxygen Saturation 99.4 % (94-97); ABG PCO2 34 mmHg (35-45); ABG PO2 128 mmHg (83-108); ABG TCO2 22 mmol/L (19-24); Allen Test Performed? Yes
[2022-04-20 06:23] LABS: Calcium 7.8 mg/dL (8.4-10.2); Potassium 4.6 mmol/L (3.5-5.1)
[2022-04-20 06:34] LABS: Anisocytosis Slight; Basophils % (A) 0 %; Eosinophils # (A) 0.1 k/uL (0-0.7); Eosinophils % (A) 1 %; HCT 25.1 % (39.0-53.0); HGB 8.4 gm/dL (13.0-17.5); Lymphocytes # (A) 1.3 k/uL (1.0-4.8); Lymphocytes % (A) 11 %; MCHC 33.5 g/dL (31.0-37.0); MCV 92.5 fL (80.0-100.0); Mean Platelet Volume 7.6; Monocytes # (A) 0.7 k/uL (0-1.0); Monocytes % (A) 6 %; Neutrophils # (A) 9.1 k/uL (1.3-7.7); Neutrophils % (A) 80 %; Platelet Count 299 k/uL (150-450); RBC 2.71 m/uL (4.30-5.90); RDW 16.4 % (11.5-15.5); WBC 11.4 k/uL (3.8-10.6)
[2022-04-20] MEDS: HYDROmorphone 1 MG/ML 1 ML SYRINGE IVP PRN (06:44)
[2022-04-20 06:49] LABS: Glucose,Whole Blood 193 mg/dL (70-110)
[2022-04-20 08:09] LABS: Glucose,Whole Blood 220 mg/dL (70-110)
--- NOTE | 2022-04-20 08:11 | XR ---
EXAMINATION TYPE: XR chest 1V portable DATE OF EXAM: 04/20/2022 COMPARISON: Chest x-ray 04/19/2022 HISTORY: Intubated TECHNIQUE: Single frontal view of the chest is obtained. FINDINGS: Endotracheal tube, NG tube are overlying appropriate positions, similar to prior exam. The re are overlying artifacts. No evident pneumothorax. There is patchy perihilar density, right hemidia phragm is partially obscured. Patient is post median sternotomy and left atrial appendage clip placem ent, vertebroplasty changes are noted near the thoracolumbar junction. Bones are stable. IMPRESSION: Difficult to exclude basilar atelectasis versus edema, pneumonia, small effusion.
[2022-04-20 09:19] LABS: Glucose,Whole Blood 196 mg/dL (70-110)
[2022-04-20] MEDS: PANTOPRAZOLE 40 MG/10 ML VIAL IVP SCH (09:24)
[2022-04-20] MEDS: CHLORHEXIDINE GLUCONATE 15 ML CUP MUCOUS MEM SCH (09:24)
--- NOTE | 2022-04-20 10:05 | CA ---
Transthoracic Echo Report Name: Mayo Knowles Age: 61 Gender: M : 1960 Exam Date: 04/20/2022 07:50 Exam Location: [facility] Ht (in): 72 Wt (lb): 132 Ordering Physician: Umesh Vora MD Attending/Referring Phys: Bacteriologist Soil Qian Eastman RDCS Procedure CPT: Indications: CAD Cardiac Hx: Technical Quality: Contrast 1: Total Dose (mL): Contrast 2: Total Dose (mL): MEASUREMENTS (Male / Female) Normal Values 2D ECHO LV Diastolic Diameter PLAX 4.6 cm 4.2 - 5.9 / 3.9 - 5.3 cm LV Systolic Diameter PLAX 3.6 cm IVS Diastolic Thickness 1.1 cm 0.6 - 1.0 / 0.6 - 0.9 cm LVPW Diastolic Thickness 1.2 cm 0.6 - 1.0 / 0.6 - 0.9 cm LV Relative Wall Thickness 0.5 RV Internal Dim ED PLAX 4.1 cm LVOT Diameter 2.4 cm LA Systolic Diameter LX 3.7 cm 3.0 - 4.0 / 2.7 - 3.8 cm LA Volume 46.4 cm??? 18 - 58 / 22 - 52 cm??? M-MODE Aortic Root Diameter MM 3.5 cm MV E Point Septal Separation 1.5 cm AV Cusp Separation MM 1.7 cm DOPPLER AV Peak Velocity 137.9 cm/s AV Peak Gradient 7.6 mmHg AV Mean Velocity 99.0 cm/s AV Mean Gradient 4.3 mmHg AV Velocity Time Integral 30.6 cm LVOT Peak Velocity 104.3 cm/s LVOT Peak Gradient 4.4 mmHg AV Area Cont Eq pk 3.4 cm??? MV Area PHT 3.6 cm??? Mitral E Point Velocity 94.5 cm/s Mitral A Point Velocity 83.4 cm/s Mitral E to A Ratio 1.1 MV Deceleration Time 212.4 ms TR Peak Velocity 247.5 cm/s TR Peak Gradient 24.5 mmHg Right Ventricular Systolic Press 39.5 mmHg FINDINGS Left Ventricle Left ventricular ejection fraction is estimated at 50 %. Left ventricular cavity size normal. Borderline left ventricular hypertrophy. Right Ventricle Moderate right ventricular dilatation. Mild pulmonary hypertension. Right Atrium Normal right atrial size. Left Atrium Normal left atrial size. Mitral Valve Mitral valve thickened. Mild mitral annular calcification. Mild mitral regurgitation. Aortic Valve Focal thickening of the aortic valve cusps. Tricuspid Valve Mild tricuspid regurgitation. Pulmonic Valve Structurally normal pulmonic valve. Pericardium Normal pericardium. No pericardial effusion. Aorta Normal size aortic root and proximal ascending aorta. CONCLUSIONS Left ventricular ejection fraction is about 50%. There is borderline LVH. Right ventricle is mildly enlarged. No significant amantadine in the Doppler exam. No pericardial effusion Previewed by: Dr. Karyn Chauhan MD (Electronically Signed) Final Date: 20 April 2022 10:04
[2022-04-20 10:14] LABS: Glucose,Whole Blood 217 mg/dL (70-110)
[2022-04-20 11:10] LABS: Glucose,Whole Blood 284 mg/dL (70-110)
--- NOTE | 2022-04-20 11:26 | P.PN ---
Subjective Progress Note Date: 04/20/22 Principal diagnosis: Acute diabetic ketoacidosis with severe hyperkalemia and acute anion gap metabolic acidosis requiring intubation and mechanical ventilation This is a 61-year-old male patient, multiple medical comorbidities including type 1 diabetes mellitus with insulin and insulin pump. The patient has also chronic stage for kidney disease and he has extensive number of medical problems and comorbidities. He came into the emergency department with generalized weakness and nausea vomiting of 3 days' duration. He was feeling very sick. He denied having any chest pain. Denied having any urinary complaints. No reported fever or chills. Sugars have been running high at home. In the emergency, he needed to the patient was found to be having significant electrol yte abnormalities. His sodium was 115 with a potassium level VIII.9 and chloride is 112 with a serum bicarb of 6 with a creatinine of 4.0 and albumin of 73. His initial blood sugar was above 1000. He had a lactic acid level of 4.7. As the patient was being worked up, the patient became bradycardic and he became hemodynamically unstable and unresponsive. At that point, it was decided to immediately intubated patient became on a mechanical ventilator. The patient had treatment for hyperkalemia and he was given calcium gluconate and initially was given 15 units of insulin he was started on a bicarb infusion which was running at the rate of 100 mL an hour. He was transferred to the intensive care unit. This morning, the patient is on propofol at 75 mcg/kg per minute. He is on a mechanical ventilator on assist control mode at the rate of 26 and tidal volume 500 and FiO2 of 50% with a PEEP of 5. Blood gases were showing significant respiratory alkalosis as the patient was being given a high minute ventilation while being on a mechanical ventilator. Appropriate ventilator changes were done. Earlier this morning, the patient was also taken off the bicarb infusion. The most recent electrolytes after being treated with a DKA protocol showed of the patient has a sodium level of 127 with a potassium level of 3.7 and chloride of 95 with a bicarb of 16 and the BUN is a 76 and a creatinine of 3.3. Blood sugar is improving and currently is down to 267. The patient was receiving insulin drip for blood sugar control and the dose was being titrated based on the protocol and it was as high as 14 units per hour.. Earlier this morning the patient also had a drop in hemoglobin down to 6.9. He suffers from chronic anemia and the patient has no signs of any GI bleeding. He was ordered a unit of packed RBC. Hemoglobin is at 8 with a platelet count of 327. Degenerative packed RBC was also ordered. He has required no pressors. He is hemodynamically stable. Chest x-ray shows no acute abnormalities. ET tube is in a good location. The computed tomography scan of the brain was also negative. Reevaluated today on 04/20/22, patient remains in the ICU, intubated and mecha nically ventilated. He is on assist control rate of 16, volume 500 FiO2 40% and PEEP of 5. ABG showed a pO2 of 128 pCO2 34 pH of 7.40 hence I cut down his rate to 14 and FiO2 down to 35%, patient was on propofol and I stopped the propofol, he was at 20 mcg/kg/m. Patient remains on insulin at 1.13 units per hour, he is also on D5 4 5 at 1 50 mL per hour. Patient is on GI and DVT prophylaxis. He is being treated as per protocol for DKA. His anion gap closed. Potassium has been corrected nicely, hemoglobin is 6.9. Patient is known to have history of chronic kidney disease and he is supposedly being considered for transplant. Patient has a necrotic right fifth toe. And he has multiple deformities noted in the left foot with his left toes. Labs today WBC count is 11.4 hemoglobin is 8.4, basic metabolic profile showed a bicarb of 19 with anion gap of 8 BUN is down to 64 creatinine is down to 2.80. Blood sugar this morning was 332, it was as high as 1090 on admission, continues to have slightly elevated troponin. 0.181 chest x-ray showed atelectasis at the right base, doubt pneumonia. Objective - Vital Signs Vital signs: Vital Signs Temp 97.5 F L 04/20/22 04:00 Pulse 79 04/20/22 10:00 Resp 18 04/20/22 10:00 BP 139/71 04/20/22 10:00 Pulse Ox 99 04/20/22 10:00 FiO2 35 04/20/22 09:44 Intake & Output 04/19/22 04/20/22 04/20/22 18:59 06:59 18:59 Intake Total 2569.476 2089.178 733.699 Output Total 910 1250 435 Balance 1659.476 839.178 298.699 Weight 60.2 kg Intake: IV 800 1650 600 D5-0.9% NaCl with KCl 20 1650 600 Meq/l 1,000 ml @ 150 mls/ hr IV .Q6H40M JACKI Rx#: [id number] Sodium Chloride 0.9% 1, 800 000 ml @ 200 mls/hr IV . Q5H JACKI Rx#:[id number] Intake, IV Titration 1459.476 439.178 133.699 Amount D5-0.45% NaCl with KCl 150 20Meq/l 1,000 ml @ 150 mls/hr IV .Q6H40M JACKI Rx# :[id number] D5-0.9% NaCl with KCl 20 900 150 Meq/l 1,000 ml @ 150 mls/ hr IV .Q6H40M JACKI Rx#: [id number] Insulin Regular 100 unit 145.440 7.088 In Sodium Chloride 0.9% 100 ml @ 0.1 UNITS/KG/HR 5.818 mls/hr IV .[id number] JACKI Rx#:[id number] propofoL 1,000 mg In 264.036 282.09 133.699 Empty Bag 1 bag @ 5 MCG/ KG/MIN 1.728 mls/hr IV . Q24H JACKI Rx#:[id number] Blood Product 310 Rc As-1 Unit 310 [id number] Output: Urine 910 1250 435 Other: Voiding Method Indwelling Catheter Indwelling Catheter - Exam Physical Exam: Revealed a 61-year-old white male arousable, follows instructions, in no distress, intubated and mechanically ventilated. Head: Atraumatic, normocephalic, orogastric tube and endotracheal tube are intact. HEENT:[Neck is supple.] [No neck masses.] [No thyromegaly.] [No JVD.] Chest: [Clear throughout, no crackles, no rhonchi, no wheezes.] Cardiac Exam: [Normal S1 and S2, no S3 gallop, no murmur.] Abdomen: [Soft, nontender, no megaly, no rebound, no guarding, normal bowel sounds.] Extremities: [No clubbing, no edema, no cyanosis.] Deformities noted in his toes bilaterally and there is some necrotic changes on the right fifth toe. Neurological Exam: [No focal neurologic deficit.] Alert seems to be oriented 3. Psychiatric: Depressed mood, flat affect, appropriate mental status, follows instructions. Skin: Necrotic changes of right fifth toe otherwise no changes - Labs CBC & Chem 7: 04/20/22 05:33 04/20/22 05:33 Labs: Abnormal Lab Results - Last 24 Hours (Table) 04/19/22 04/19/22 04/19/22 Range/Units 05:00 06:33 11:58 WBC (3.8-10.6) k/uL RBC (4.30-5.90) m/uL Hgb (13.0-17.5) gm/dL Hct (39.0-53.0) % RDW (11.5-15.5) % Neutrophils # (1.3-7.7) k/uL ABG pCO2 (35-45) mmHg ABG pO2 (83-108) mmHg ABG O2 Saturation (94-97) % ABG Hematocrit (34.0-46.0) % Hemoglobin (13.0-17.5) gm/dL Chloride (98-107) mmol/L Carbon Dioxide (22-30) mmol/L BUN (9-20) mg/dL Creatinine (0.66-1.25) mg/dL Glucose (74-99) mg/dL POC Glucose (mg/dL) 267 H (70-110) mg/dL Calcium (8.4-10.2) mg/dL Iron 19 L (65-175) ug/dL TIBC 227 L (228-460) ug/dL % Saturation 8.16 L (15.00-50.00) Transferrin 162.0 L (204.0-354.0) mg/dL Crossmatch See Detail 04/19/22 04/19/22 04/19/22 Range/Units 13:05 14:18 15:12 WBC (3.8-10.6) k/uL RBC (4.30-5.90) m/uL Hgb (13.0-17.5) gm/dL Hct (39.0-53.0) % RDW (11.5-15.5) % Neutrophils # (1.3-7.7) k/uL ABG pCO2 (35-45) mmHg ABG pO2 (83-108) mmHg ABG O2 Saturation (94-97) % ABG Hematocrit (34.0-46.0) % Hemoglobin (13.0-17.5) gm/dL Chloride (98-107) mmol/L Carbon Dioxide (22-30) mmol/L BUN (9-20) mg/dL Creatinine (0.66-1.25) mg/dL Glucose (74-99) mg/dL POC Glucose (mg/dL) 209 H 167 H 124 H (70-110) mg/dL Calcium (8.4-10.2) mg/dL Iron (65-175) ug/dL TIBC (228-460) ug/dL % Saturation (15.00-50.00) Transferrin (204.0-354.0) mg/dL Crossmatch 04/19/22 04/19/22 04/19/22 Range/Units 18:01 20:29 21:49 WBC 14.3 H (3.8-10.6) k/uL RBC 3.21 L (4.30-5.90) m/uL Hgb 9.8 L D (13.0-17.5) gm/dL Hct 28.6 L (39.0-53.0) % RDW 15.9 H (11.5-15.5) % Neutrophils # 11.7 H (1.3-7.7) k/uL ABG pCO2 (35-45) mmHg ABG pO2 (83-108) mmHg ABG O2 Saturation (94-97) % ABG Hematocrit (34.0-46.0) % Hemoglobin (13.0-17.5) gm/dL Chloride (98-107) mmol/L Carbon Dioxide (22-30) mmol/L BUN (9-20) mg/dL Creatinine (0.66-1.25) mg/dL Glucose (74-99) mg/dL POC Glucose (mg/dL) 132 H 202 H (70-110) mg/dL Calcium (8.4-10.2) mg/dL Iron (65-175) ug/dL TIBC (228-460) ug/dL % Saturation (15.00-50.00) Transferrin (204.0-354.0) mg/dL Crossmatch 04/19/22 04/19/22 04/20/22 Range/Units 22:46 23:51 00:53 WBC (3.8-10.6) k/uL RBC (4.30-5.90) m/uL Hgb (13.0-17.5) gm/dL Hct (39.0-53.0) % RDW (11.5-15.5) % Neutrophils # (1.3-7.7) k/uL ABG pCO2 (35-45) mmHg ABG pO2 (83-108) mmHg ABG O2 Saturation (94-97) % ABG Hematocrit (34.0-46.0) % Hemoglobin (13.0-17.5) gm/dL Chloride (98-107) mmol/L Carbon Dioxide (22-30) mmol/L BUN (9-20) mg/dL Creatinine (0.66-1.25) mg/dL Glucose (74-99) mg/dL POC Glucose (mg/dL) 176 H 150 H 152 H (70-110) mg/dL Calcium (8.4-10.2) mg/dL Iron (65-175) ug/dL TIBC (228-460) ug/dL % Saturation (15.00-50.00) Transferrin (204.0-354.0) mg/dL Crossmatch 04/20/22 04/20/22 04/20/22 Range/Units 01:49 02:47 03:59 WBC (3.8-10.6) k/uL RBC (4.30-5.90) m/uL Hgb (13.0-17.5) gm/dL Hct (39.0-53.0) % RDW (11.5-15.5) % Neutrophils # (1.3-7.7) k/uL ABG pCO2 (35-45) mmHg ABG pO2 (83-108) mmHg ABG O2 Saturation (94-97) % ABG Hematocrit (34.0-46.0) % Hemoglobin (13.0-17.5) gm/dL Chloride (98-107) mmol/L Carbon Dioxide (22-30) mmol/L BUN (9-20) mg/dL Creatinine (0.66-1.25) mg/dL Glucose (74-99) mg/dL POC Glucose (mg/dL) 167 H 170 H 177 H (70-110) mg/dL Calcium (8.4-10.2) mg/dL Iron (65-175) ug/dL TIBC (228-460) ug/dL % Saturation (15.00-50.00) Transferrin (204.0-354.0) mg/dL Crossmatch 04/20/22 04/20/22 04/20/22 Range/Units 04:54 05:33 05:33 WBC 11.4 H (3.8-10.6) k/uL RBC 2.71 L (4.30-5.90) m/uL Hgb 8.4 L (13.0-17.5) gm/dL Hct 25.1 L (39.0-53.0) % RDW 16.4 H (11.5-15.5) % Neutrophils # 9.1 H (1.3-7.7) k/uL ABG pCO2 (35-45) mmHg ABG pO2 (83-108) mmHg ABG O2 Saturation (94-97) % ABG Hematocrit (34.0-46.0) % Hemoglobin (13.0-17.5) gm/dL Chloride 112 H (98-107) mmol/L Carbon Dioxide 19 L (22-30) mmol/L BUN 64 H (9-20) mg/dL Creatinine 2.80 H (0.66-1.25) mg/dL Glucose 332 H (74-99) mg/dL POC Glucose (mg/dL) 190 H (70-110) mg/dL Calcium 7.8 L (8.4-10.2) mg/dL Iron (65-175) ug/dL TIBC (228-460) ug/dL % Saturation (15.00-50.00) Transferrin (204.0-354.0) mg/dL Crossmatch 04/20/22 04/20/22 04/20/22 Range/Units 05:46 05:47 06:47 WBC (3.8-10.6) k/uL RBC (4.30-5.90) m/uL Hgb (13.0-17.5) gm/dL Hct (39.0-53.0) % RDW (11.5-15.5) % Neutrophils # (1.3-7.7) k/uL ABG pCO2 34 L (35-45) mmHg ABG pO2 128 H (83-108) mmHg ABG O2 Saturation 99.4 H (94-97) % ABG Hematocrit 25 L (34.0-46.0) % Hemoglobin 8.3 L (13.0-17.5) gm/dL Chloride (98-107) mmol/L Carbon Dioxide (22-30) mmol/L BUN (9-20) mg/dL Creatinine (0.66-1.25) mg/dL Glucose (74-99) mg/dL POC Glucose (mg/dL) 186 H 193 H (70-110) mg/dL Calcium (8.4-10.2) mg/dL Iron (65-175) ug/dL TIBC (228-460) ug/dL % Saturation (15.00-50.00) Transferrin (204.0-354.0) mg/dL Crossmatch 04/20/22 04/20/22 04/20/22 Range/Units 08:08 09:18 10:12 WBC (3.8-10.6) k/uL RBC (4.30-5.90) m/uL Hgb (13.0-17.5) gm/dL Hct (39.0-53.0) % RDW (11.5-15.5) % Neutrophils # (1.3-7.7) k/uL ABG pCO2 (35-45) mmHg ABG pO2 (83-108) mmHg ABG O2 Saturation (94-97) % ABG Hematocrit (34.0-46.0) % Hemoglobin (13.0-17.5) gm/dL Chloride (98-107) mmol/L Carbon Dioxide (22-30) mmol/L BUN (9-20) mg/dL Creatinine (0.66-1.25) mg/dL Glucose (74-99) mg/dL POC Glucose (mg/dL) 220 H 196 H 217 H (70-110) mg/dL Calcium (8.4-10.2) mg/dL Iron (65-175) ug/dL TIBC (228-460) ug/dL % Saturation (15.00-50.00) Transferrin (204.0-354.0) mg/dL Crossmatch 04/20/22 Range/Units 11:09 WBC (3.8-10.6) k/uL RBC (4.30-5.90) m/uL Hgb (13.0-17.5) gm/dL Hct (39.0-53.0) % RDW (11.5-15.5) % Neutrophils # (1.3-7.7) k/uL ABG pCO2 (35-45) mmHg ABG pO2 (83-108) mmHg ABG O2 Saturation (94-97) % ABG Hematocrit (34.0-46.0) % Hemoglobin (13.0-17.5) gm/dL Chloride (98-107) mmol/L Carbon Dioxide (22-30) mmol/L BUN (9-20) mg/dL Creatinine (0.66-1.25) mg/dL Glucose (74-99) mg/dL POC Glucose (mg/dL) 284 H (70-110) mg/dL Calcium (8.4-10.2) mg/dL Iron (65-175) ug/dL TIBC (228-460) ug/dL % Saturation (15.00-50.00) Transferrin (204.0-354.0) mg/dL Crossmatch Microbiology - Last 24 Hours (Table) 04/19/22 04:45 Gram Stain - Preliminary Sputum Sputum Culture - Preliminary 04/18/22 21:50 Blood Culture - Preliminary Blood No Growth after 24 hours 04/18/22 21:35 Blood Culture - Preliminary Blood No Growth after 24 hours Assessment and Plan Assessment: Impression: Acute hypoxic respiratory failure/arrest, secondary to bradycardia, and hemodynamic instability as well as severe anion gap metabolic acidosis with hyperkalemia, secondary to acute diabetic ketoacidosis. Acute diabetic ketoacidosis with hyperkalemia and severe anion gap metabolic acidosis Acute hemodynamic instability with bradycardia and hyperkalemia Acute pseudohyponatremia Acute on chronic kidney injury, known history of stage IV chronic kidney disease History of carotid artery stenosis previous right carotid endarterectomy and patch angioplasty Chronic anemia of kidney disease Coronary artery disease and previous off pump 3 vessel CABG in August 16 Type 1 diabetes, patient has insulin pump Benign essential hypertension. Chronic kidney disease stage IV at baseline. History of paroxysmal atrial fibrillation Chronic obstructive pulmonary disease presently inactive. Recommendation: Discontinue propofol Continue DKA protocol Consider trial of weaning with pressure support and CPAP utilizing a pressure support of 8 and CPAP once the patient is a bit more awake and off propofol for the next half hour. Continue to monitor and correct electrolytes Continue to monitor hemoglobin and transfuse accordingly Continue to follow with other consultants including nephrology and cardiology Will likely wean and extubate in the next 2 hours. Patient is critically ill. Continue GI and DVT prophylaxis Discontinue orogastric tube and the patient is extubated Critical care time is over 30 minutes. Time with Patient: Greater than 30
[2022-04-20 11:49] VITALS: BMI 18.0
[2022-04-20 12:13] LABS: Glucose,Whole Blood 302 mg/dL (70-110)
[2022-04-20 12:14] VITALS: BP 151/77; PULSE 92; RESP 17
[2022-04-20 19:09] LABS: Glucose,Whole Blood 232 mg/dL (70-110)
[2022-04-20 19:09] LABS: Glucose,Whole Blood 223 mg/dL (70-110)
[2022-04-20 19:09] LABS: Glucose,Whole Blood 258 mg/dL (70-110)
[2022-04-20] MEDS ORDERED: DEXTROSE 50% SYRINGE 50 ML IVP PRN ×2 (20:02)
[2022-04-20] MEDS ORDERED: SODIUM CHLORIDE 0.9% 1,000 ML IV SCH (20:15)
[2022-04-20] MEDS ORDERED: INSULIN DETEMIR (LEVEMIR) 100 UNIT/ML SYR SQ SCH (21:00)
[2022-04-20] MEDS ORDERED: INSULIN ASPART (NovoLOG) 100 UNIT/ML VIAL SQ SCH (21:00)
[2022-04-20 21:02] VITALS: TEMP 98.3
--- NOTE | 2022-04-22 06:30 | PN ---
PROGRESS NOTE SUBJECTIVE: The patient is seen for followup for acute kidney injury. The patient remains on the vent. He is awake. There are plans for possible extubation. PHYSICAL EXAMINATION: VITAL SIGNS: Blood pressure 166/86, heart rate 90 per minute. The patient is afebrile. HEART: S1, S2. LUNGS: Bilateral breath sounds are heard. EXTREMITIES: Lower extremities show no significant edema. CONFIGURATION MANAGEMENT SPECIALIST: Shows the patient is following commands and moving all 4 extremities. LABORATORY DATA: Today show sodium 139, potassium 4.6, chloride 112, CO2 is 19, BUN 64 serum creatinine 2.8 mg/dL. ASSESSMENT: 1. Acute kidney injury, acute tubular necrosis, currently slightly improved, nonoliguric. 2. Chronic kidney disease, stage 4 secondary to diabetic kidney disease and nephrosclerosis. Baseline creatinine around 3 mg/dL. 3. Coronary artery disease, status post coronary artery bypass surgery, August,. 4. Diabetic ketoacidosis, improving. 5. Hyperkalemia associated with acute kidney injury, diabetic ketoacidosis, metabolic acidosis, currently improved. 6. Anemia, status post packed RBCs. No active bleeding noted. Iron profile showed significant iron deficiency with saturation of 8%. PLAN: Continue with IV fluids. Continue to avoid nephrotoxic agents. Repeat labs in a.m. Continue antibiotics. Possible extubation as per Pulmonary. MMODL / IJN: [id number] /
== END 2022-04-20 19:30 | disposition left against medical advice (07) | DRG 637 ==
LOC: EC 20:24 → 2SICU 23:48
PROVIDERS: ADMIT Internal Medicine; ATTEND Internal Medicine
PROC: 5A1935Z Respiratory Ventilation, Less than 24 Consecutive Hours (ICD-10-PCS; principal; 2022-04-19)
PROC: 0BH17EZ Insertion of Endotracheal Airway into Trachea, Via Natural or Artificial Opening (ICD-10-PCS; 2022-04-19)
PROC: 30233N1 Transfusion of Nonautologous Red Blood Cells into Peripheral Vein, Percutaneous Approach (ICD-10-PCS; 2022-04-19)
DX: E10.10 Type 1 diabetes mellitus with ketoacidosis without coma (principal); J96.01 Acute respiratory failure with hypoxia; N17.0 Acute kidney failure with tubular necrosis; E10.52 Type 1 diabetes mellitus with diabetic peripheral angiopathy with gangrene; E87.0 Hyperosmolality and hypernatremia; E87.1 Hypo-osmolality and hyponatremia; E87.3 Alkalosis; J98.11 Atelectasis; N18.4 Chronic kidney disease, stage 4 (severe); Z53.29 Procedure and treatment not carried out because of patient's decision for other reasons; Z20.822 Contact with and (suspected) exposure to COVID-19; R00.1 Bradycardia, unspecified; D63.8 Anemia in other chronic diseases classified elsewhere; E86.0 Dehydration; E10.22 Type 1 diabetes mellitus with diabetic chronic kidney disease; E10.69 Type 1 diabetes mellitus with other specified complication; I12.9 Hypertensive chronic kidney disease with stage 1 through stage 4 chronic kidney disease, or unspecified chronic kidney disease; I25.10 Atherosclerotic heart disease of native coronary artery without angina pectoris; I48.0 Paroxysmal atrial fibrillation; I65.29 Occlusion and stenosis of unspecified carotid artery; E78.5 Hyperlipidemia, unspecified; E86.1 Hypovolemia; J44.9 Chronic obstructive pulmonary disease, unspecified; E87.5 Hyperkalemia; D72.829 Elevated white blood cell count, unspecified; D53.9 Nutritional anemia, unspecified; I25.2 Old myocardial infarction; Z79.02 Long term (current) use of antithrombotics/antiplatelets; Z79.4 Long term (current) use of insulin; Z79.82 Long term (current) use of aspirin; Z79.899 Other long term (current) drug therapy; Z87.891 Personal history of nicotine dependence; Z95.1 Presence of aortocoronary bypass graft; Z96.1 Presence of intraocular lens; Z96.41 Presence of insulin pump (external) (internal); Z98.41 Cataract extraction status, right eye
CPT/HCPCS: 36415; 36600; 51702; 70450; 71045; 80048; 80051; 80053; 81001; 82009; 82150; 82271; 82565; 82805; 82947; 83540; 83550; 83605; 83690; 83735; 84100; 84132; 84484; 84520; 85025; 85610; 85730; 86850; 86900; 86901; 86920; 87040; 87070; 87205; 87635; 93005; 93306; 94002; 94003; 94760; 96365; 99285